=== PATIENT | female | born 1940 | race Caucasian/White ===

== ENCOUNTER → 2017-02-11 | Outpatient (CLI) | payer BC ==
[~2017-02-11] MED LIST: ASCO500C43 PO; CALC-393 PO; CHOL20007 PO; CLTP PO; GLC/500 PO; LEVO1TAB PO; LEVO25TA PO; MULT-506 PO; TRAV0.00 OPB; ZOLE5INJ INJ
--- NOTE | 2017-02-11 13:45 | DIAGNOSTIC IMAGING REPORT ---
RIGHT ELBOW MIN 3 VIEWS CLINICAL HISTORY: RIGHT ELBOW PAIN Right COMPARISON STUDY: None. FINDINGS: No acute fracture or dislocation within the right elbow. No definite elbow effusion. Severe osteoarthritis within the right elbow demonstrated by large marginal osteophytes and cartilage space narrowing with remodeling of the joint space. Small ossific density adjacent to the lateral epicondyle may be due to an old avulsion injury. IMPRESSION: 1. No acute fracture or dislocation within the right elbow. 2. Severe osteoarthritis. Electronically signed by: Cheng Diaz M.D. 02/11/2017 1:43 PM Dictated Date/Time: 02/11/2017 1:39 PM
--- NOTE | 2017-02-11 15:05 | DIAGNOSTIC IMAGING REPORT ---
LUMBAR SPINE MIN 4 VIEWS CLINICAL HISTORY: Low back pain. COMPARISON: Lumbar spine MRI March 06, 2010. FINDINGS: There is 1.1 cm of anterolisthesis of L5 on S1 due to suspected bilateral L5 pars defects. Anterolisthesis has mildly increased since exam of March 06, 2010. There is marked disc space narrowing at this level with osteophytosis and vacuum disc phenomenon. There is moderate disc space narrowing with osteophytosis at L4-L5. There is no acute fracture. Slight concavity of the superior endplate of L2 is unchanged. IMPRESSION: 1. Grade II anterolisthesis of L5 on S1 due to suspected bilateral L5 pars defects. Anterolisthesis has mildly increased since exam of March 06, 2010. 2. Marked disc space narrowing with osteophytosis and vacuum disc phenomenon at L5-S1. Moderate degenerative disc disease at L4-L5. 3. No acute lumbar spine fracture. Electronically signed by: Robert Amaral M.D. 02/11/2017 3:03 PM Dictated Date/Time: 02/11/2017 3:00 PM
== END | disposition home or self-care (01) ==
LOC: C.RDSM 13:15
PROVIDERS: ATTEND Internal Medicine
DX: M54.5 Low back pain (principal); M25.521 Pain in right elbow

== ENCOUNTER → 2017-03-10 | Outpatient (CLI) | payer BC ==
[2017-03-10 09:59] LABS: CALCIUM 10.1 mg/dl (8.5-10.1)
[2017-03-10 10:01] LABS: ALT/SGPT 30 U/L (12-78); BLOOD UREA NITROGEN 10 mg/dl (7-18); BUN/CREATININE RATIO 14.2 (10-20); CARBON DIOXIDE 27 mmol/L (21-32); CHLORIDE 101 mmol/L (98-107); CHOLESTEROL 230 mg/dl (0-200); CREATININE 0.72 mg/dl (0.60-1.20); GLUCOSE 142 mg/dl (70-99); POTASSIUM 4.3 mmol/L (3.5-5.1); SODIUM 137 mmol/L (136-145); TRIGLYCERIDES 246 mg/dl (0-150); VERY LOW DENSITY LIPOPROT CALC 49 mg/dl
[2017-03-10 10:08] LABS: ESTIMATED AVERAGE GLUCOSE 151 mg/dl; HA1C FLAG Normal (Normal)
[2017-03-10 10:11] LABS: ALKALINE PHOSPHATASE 54 U/L (45-117); AST/SGOT 20 U/L (15-37); CHOLESTEROL/HDL RATIO 3.9; HDL CHOLESTEROL 59 mg/dl; LDL CHOLESTEROL CALCULATED 122 mg/dl
[2017-03-10 10:25] LABS: RATIO 17.5 mcg/mg (0-30.0)
--- NOTE | 2017-03-14 11:37 | CODING QUERY MEDICAL NECESSITY ---
SUPPORTING DIAGNOSIS NEEDED Dr. Kearney, A supporting diagnosis is required for the test/procedure performed on this patient in order for us to be reimbursed by the patient's insurance. Please provide a supporting diagnosis for the following test/procedure listed below next to the test name along with your signature. *If there is no additional diagnosis for this patient that would support the following test/procedure please document that below next to the test/procedure. Test(s)/Procedure(s) that require a supporting diagnosis: * ([id number]) B12 VITAMIN LEVEL DIAGNOSIS: DATE OF SERVICE: 03/10/17 Provider Signature: Date: Thank you [facility] Information Management Once completed, please kindly fax back to [phone] For questions please call [phone]
== END | disposition home or self-care (01) ==
LOC: C.LAB1850 08:03
PROVIDERS: ATTEND Internal Medicine
DX: E11.9 Type 2 diabetes mellitus without complications (principal); M81.0 Age-related osteoporosis without current pathological fracture; E78.5 Hyperlipidemia, unspecified; R74.8 Abnormal levels of other serum enzymes

== ENCOUNTER → 2017-04-17 | Outpatient (CLI) | payer BC ==
[~2017-04-17] MED LIST changes: -ASCO500C43 PO; -CALC-393 PO; -CHOL20007 PO; -GLC/500 PO; -LEVO25TA PO; -ZOLE5INJ INJ
--- NOTE | 2017-04-18 12:44 | MAMMOGRAPHY REPORT ---
BILATERAL DIGITAL SCREENING MAMMOGRAM WITH CAD: 04/17/2017 CLINICAL HISTORY: Routine screening. Patient has no complaints. TECHNIQUE: Current study was also evaluated with a Computer Aided Detection (CAD) system. Bilateral CC and MLO views were obtained. COMPARISON: Comparison is made to exams dated: 05/14/2011 mammogram, 05/07/2010 mammogram - [facility], and 05/06/2008. BREAST COMPOSITION: There are scattered areas of fibroglandular density in both breasts. FINDINGS: No suspicious masses, calcifications, or areas of architectural distortion are noted in ei ther breast. There has been no significant interval change compared to prior exams. IMPRESSION: ACR BI-RADS CATEGORY 1: NEGATIVE There is no mammographic evidence of malignancy. A 1 year screening mammogram is recommended. The pa tient will receive written notification of the results. Approximately 10% of breast cancers are not detected with mammography. A negative mammographic report should not delay biopsy if a clinically suggestive mass is present. Bonny Eng M.D. ah/:04/17/2017 16:03:56 [employer]: Janene OLIVIER(Ronda)(Rito)(BD), [facility] letter sent: Normal 1/2 BI-RADS Code: ACR BI-RADS Category 1: Negative
== END | disposition home or self-care (01) ==
LOC: C.MAMM 15:43
PROVIDERS: ATTEND Obstetrics & Gynecology
DX: Z12.31 Encounter for screening mammogram for malignant neoplasm of breast (principal)

== ENCOUNTER 2017-06-04 15:48 | Emergency (ER) | payer BC ==
[~2017-06-04] VITALS: Ht 137.2 cm; Wt 48.4 kg
[2017-06-04 15:52] VITALS: Ht 137.2 cm; Wt 48.4 kg
[2017-06-04] MEDS ORDERED: XYLOCAINE 1%/SOD BICARB 20 ML VIAL INFIL ONE (16:00)
[2017-06-04] MEDS ORDERED: ASCO500C43 PO (16:59)
[2017-06-04] MEDS ORDERED: LEVO25TA PO (16:59)
[2017-06-04] MEDS ORDERED: ZOLE5INJ INJ (16:59)
[2017-06-04] MEDS ORDERED: CALC-393 PO (16:59)
[2017-06-04] MEDS ORDERED: CHOL20007 PO (16:59)
[2017-06-04] MEDS ORDERED: GLC/500 PO (16:59)
--- NOTE | 2017-06-04 17:17 | DIAGNOSTIC IMAGING REPORT ---
CT HEAD WITHOUT CONTRAST (CT) CLINICAL HISTORY: Head pain status post head trauma COMPARISON STUDY: 03/09/2011 TECHNIQUE: Axial CT of the brain is performed from the vertex to the skull base. IV contrast was not administered for this examination. A dose lowering technique was utilized adhering to the principles of ALARA. CT DOSE: 690.05 mGycm FINDINGS: No intra or extra-axial mass lesions are visualized. There is no CT evidence of acute cortical infarction. There is no evidence of midline shift. There is no acute hemorrhage. No calvarial fractures are visualized. There are patchy white matter hypodensities likely on a small vessel basis. There is no evidence of pathologic ventricular dilatation. There is no evidence of acute sinusitis IMPRESSION: No acute intracranial findings Electronically signed by: Ajay Lofton M.D. 06/04/2017 5:15 PM Dictated Date/Time: 06/04/2017 5:14 PM
--- NOTE | 2017-06-04 17:19 | DIAGNOSTIC IMAGING REPORT ---
CT OF THE CERVICAL SPINE CLINICAL HISTORY: Neck pain status post trauma COMPARISON STUDY: June 2008 CT DOSE: 380.93 mGycm TECHNIQUE: CT scan of the cervical spine was performed from the skull base to the thoracic inlet. Images are reviewed in the axial, sagittal, and coronal planes. IV contrast was not administered for this examination. A dose lowering technique was utilized adhering to the principles of ALARA. FINDINGS: The visualized portions of the lung apices reveal no evidence of pneumothorax. The prevertebral soft tissues are normal. No fractures or subluxations are visualized. There are advanced multilevel degenerative changes with multilevel disc space narrowing and endplate erosive change. IMPRESSION: No evidence of acute fracture or traumatic subluxation. Electronically signed by: Ajay Lofton M.D. 06/04/2017 5:17 PM Dictated Date/Time: 06/04/2017 5:15 PM
--- NOTE | 2017-06-04 17:23 | DIAGNOSTIC IMAGING REPORT ---
LEFT WRIST W/NAVICULAR 5 VIEWS CLINICAL HISTORY: Left wrist pain COMPARISON: None. DISCUSSION: No acute fractures or dislocations are visualized. There are advanced arthritic changes the level the first carpal metacarpal joint. There is joint space narrowing at the level the second and third metacarpal phalangeal joints. Several small bony erosions are visualized. IMPRESSION: 1. No acute fractures 2. Arthritic changes which are severe at the level the first carpal metacarpal joint. Electronically signed by: Ajay Lofton M.D. 06/04/2017 5:22 PM Dictated Date/Time: 06/04/2017 5:21 PM
--- NOTE | 2017-06-04 17:33 | DIAGNOSTIC IMAGING REPORT ---
CT FACIAL BONES-MXILLOFAC WITHOUT CT DOSE: 495.61 mGycm CLINICAL HISTORY: Facial pain status post trauma COMPARISON STUDY: March 09, 2011 TECHNIQUE: Helical images were acquired in the transverse plane. The study was reviewed and analyzed on the independent 3-D workstation. A dose lowering technique was utilized adhering to the principles of ALARA. The pterygoid plates appear intact. The zygomatic arches appear intact. The globes appear intact. There is no evidence of orbital emphysema. The orbital dia and floor appear intact. The mandibular condyles appear intact. There is a left maxillary dental apical abscess. IMPRESSION: No facial fractures identified. Electronically signed by: Ajya Lofton M.D. 06/04/2017 5:32 PM Dictated Date/Time: 06/04/2017 5:30 PM
--- NOTE | 2017-06-04 18:12 | EMERGENCY ROOM VISIT NOTE ---
History First contact with patient: 15:54 Chief Complaint: FALL Stated Complaint: FELL DOWN ON FACE AND BLEEDING History of Present Illness The patient is a 77 year old female who presents to the Emergency Room with complaints of injuries after she tripped and fell, striking her face on the ground. The patient reports lacerations on both the upper and lower lip. She also reports upper neck pain and mild headache. She denies any nausea, photosensitivity, unusual drowsiness or tinnitus. The patient also complains of left wrist pain from her fall. The patient is [id number]. The patient is uncertain of her last tetanus immunization. She rates her discomfort a 4 out of 10. Review of Systems HEENT: Denies dizziness, visual problems, hearing loss, tinnitus. Denies difficulty swallowing or oral lesions. PULMONARY: Denies cough, shortness of breath, sputum production or hemoptysis. CARDIOVASCULAR: Denies chest pain, palpitations, dyspnea on exertion, orthopnea or peripheral edema. GASTROINTESTINAL: Denies diarrhea, constipation, nausea, vomiting, or abdominal pain. GENITOURINARY: Denies dysuria, frequency, urgency or nocturia. NEUROLOGIC: Denies history of epilepsy, CVA, TIA or chronic headaches. MUSCULOSKELETAL: Denies history of joint tenderness/swelling. SKIN: Denies rashes or lesions. PSYCHIATRIC: Denies history of depression or mental illness. ENDOCRINE: History of diabetes and hypothyroidism. Past Medical/Surgical History Medical Problems: (1) Age-Related Osteoporosis W/O Current Pathological Fracture (2) Diab Izabel Wo Compl, Type Ii Or Unspec Type, Not Uncntrld (3) Glaucoma Nos (4) Hemorrhoids Nos (5) Low Back Pain (6) Nasal Bone Fx-Closed Family History FH: diabetes mellitus FH: heart disease Social History Smoking Status: Never Smoker Alcohol Use: none Marital Status: Occupation Status: retired Current/Historical Medications Scheduled Ascorbic Acid (Vitamin C 500 mg), 500 MG PO DAILY Calcium Carbonate (Calcium), 600 MG PO 4XWK Cholecalciferol (Vitamin D3), 1 TAB PO DAILY Levothyroxine Sodium (Synthroid), 25 MCG PO DAILY Metformin Hcl (Glucophage), 500 MG PO DAILY Multivitamin (Multivitamin), 1 TAB PO DAILY Travoprost (Travatan Z), 1 DROPS OPB HS Zoledronic Acid (Reclast), 1 DOSE INJ UD Physical Exam Vital Signs Date Time Temp Pulse Resp B/P (MAP) Pulse Ox O2 Delivery O2 Flow Rate FiO2 06/04/17 18:15 36.5 91 20 179/106 98 06/04/17 18:15 91 20 179/106 98 Room Air 06/04/17 15:52 36.5 98 20 188/104 98 Room Air Physical Exam CONSTITUTIONAL: Healthy and well nourished. Alert and oriented X 3 with positive affect. GCS 15. Patient does not appear in any acute distress. HEENT: Examination shows 1 cm lacerations of the wet mucosa of both the upper and lower lips. Pupils equal, round and reactive. No other facial bone tenderness to palpation. Doppler hemorrhage, hemotympanum, epistaxis, raccoon's eyes or Agustin sign. NECK: Patient has mild tenderness to palpation of the upper central cervical spine and cervical musculature. She is, however, exhibiting active range of motion without obvious discomfort. RESPIRATORY: Clear to auscultation bilaterally with no wheezing, crackles, rhonchi or stridor. CARDIOVASCULAR: Regular rate and rhythm with no murmurs, rubs or gallops. MUSCULOSKELETAL: Examination shows mild edema of the left wrist. She is tender over the distal radius region. Negative anatomic snuffbox tenderness. No tenderness to palpation through the metacarpals or phalanges. Capillary refill is less than 2 seconds. INTEGUMENTARY: No rash or other significant dermatologic conditions noted. NEUROLOGIC: No focal neurologic deficits noted. No ataxia with ambulation. Normal finger to nose test. Negative pronator drift. Medical Decision & Procedures ER Provider Diagnostic Interpretation: Noncontrast CT of the facial bones, head and cervical spine does not show any acute fractures, intracranial bleed or cervical spine subluxations. Radiologist reports were reviewed. My interpretation of left wrist x-rays does not show any acute fractures or dislocations. She has severe osteoarthritis of the first CMC joint. Radiologist report was also reviewed. Procedure Upper and lower lip laceration repairs were performed under local anesthesia after receiving verbal consent from the patient. Using buffered 1% lidocaine without epinephrine, good local anesthesia was administered. The wounds were then approximated using 5-0 Vicryl inverted simple interrupted sutures 2 of the upper lip, and 3 of the lower lip. The patient tolerated the procedure well. ED Course Patient history and physical exam were performed. Nurse's notes were reviewed. Vital signs were reviewed, showing a blood pressure 188/104. The patient does not appear in any acute distress. I also had our outsole caser reviewed the patient's immunization status through [employer]. Her last Tdap was in May 2012. Noncontrast CT of the facial bones, head and cervical spine were normal. X-rays of the left wrist were also normal. Laceration repair was performed under local anesthesia. The patient was provided additional verbal and written wound care instructions. Intermittent application of ice to the lips and wrist as needed for swelling and pain. Ibuprofen or Tylenol if needed for additional pain relief. The patient was also instructed to follow-up with her orthopedist, Dr. Lopez, if she has any persistent wrist pain. She was instructed to perform gentle range of motion exercises to prevent stiffness The patient was also advised of her elevated blood pressure, and instructed to follow-up with her PCP for recheck. The patient was also seen and examined by Dr. Garrido, ED attending physician, who agrees with workup and plan of care. Medical Decision Medication Reconcilliation Current Medication List: was personally reviewed by me Blood Pressure Screening Patient's blood pressure: Elevated blood pressure Blood pressure disposition: Referred to PCP Impression Primary Impression: Upper lip mucosal laceration Additional Impressions: Lower lip mucosal laceration Left wrist injury Fall from slip, trip, or stumble Elevated blood pressure reading Departure Information Referrals RV. Berry MD (PCP) Patient Instructions My [facility] Problem Qualifiers Additional Impressions: Left wrist injury Encounter type: initial encounter Qualified Codes: S69.92XA - Unspecified injury of left wrist, hand and finger(s), initial encounter Fall from slip, trip, or stumble Encounter type: initial encounter Qualified Codes: W01.0XXA - Fall on same level from slipping, tripping and stumbling without subsequent striking against object, initial encounter
--- NOTE | 2017-06-04 18:12 | EMERGENCY ROOM VISIT NOTE ---
ED Visit Note First contact with patient: 15:54 I have personally seen and evaluated the patient with the physician state tested nursing assistant. I agree with the diagnostic/management decisions and have personally been involved in these decisions and agree with the diagnosis.
[2017-06-04 18:15] VITALS: BP 179/106; PULSE 91; TEMP 36.5; O2SAT 98
== END 2017-06-04 18:18 | disposition home or self-care (01) ==
LOC: C.EDB 15:49 → C.EDD 18:18
DX: S01.511A Laceration without foreign body of lip, initial encounter (principal); S69.92XA Unspecified injury of left wrist, hand and finger(s), initial encounter; W01.0XXA Fall on same level from slipping, tripping and stumbling without subsequent striking against object, initial encounter; R03.0 Elevated blood-pressure reading, without diagnosis of hypertension; M18.12 Unilateral primary osteoarthritis of first carpometacarpal joint, left hand; E11.9 Type 2 diabetes mellitus without complications; E03.9 Hypothyroidism, unspecified; M81.0 Age-related osteoporosis without current pathological fracture; H40.9 Unspecified glaucoma; K64.9 Unspecified hemorrhoids; Z79.84 Long term (current) use of oral hypoglycemic drugs; Z83.3 Family history of diabetes mellitus

== ENCOUNTER → 2017-06-11 | Outpatient (CLI) | payer BC ==
[~2017-06-11] MED LIST changes: +ASCO500C43 PO; +CALC-393 PO; +CHOL20007 PO; -CLTP PO; +GLC/500 PO; -LEVO1TAB PO; +LEVO25TA PO; +ZOLE5INJ INJ
== END | disposition home or self-care (01) ==
LOC: C.PAPS 08:37
PROVIDERS: ATTEND Obstetrics & Gynecology
DX: Z12.4 Encounter for screening for malignant neoplasm of cervix (principal)

== ENCOUNTER → 2017-06-12 | Outpatient (CLI) | payer BC ==
--- NOTE | 2017-06-12 13:43 | DIAGNOSTIC IMAGING REPORT ---
BILATERAL KNEE RADIOGRAPHS CLINICAL HISTORY: Bilateral knee pain. COMPARISON: Knee radiographs July 30, 2016. FINDINGS: Right knee: There is mild medial translation of the femur with respect to the tibia. There is marked medial and lateral compartment joint space narrowing as well as moderate narrowing within the patellofemoral compartment with extensive osteophytosis. There is no fracture or suspicious lesion. Left knee: There is mild medial translation of the femur with respect to the tibia. There is no fracture. There is marked medial compartment joint space narrowing. There is moderate lateral compartment joint space narrowing as well as patellofemoral compartment joint space narrowing with osteophytosis. IMPRESSION: Right knee: 1. Severe tricompartmental osteoarthritis of the right knee. 2. No acute fracture. Left knee: 1. Severe osteoarthritis of the left knee, most pronounced within the medial and patellofemoral compartments. 2. No acute fracture. Electronically signed by: Robert Amaral M.D. 06/12/2017 1:41 PM Dictated Date/Time: 06/12/2017 1:34 PM
== END | disposition home or self-care (01) ==
LOC: C.RDSM 10:46
PROVIDERS: ATTEND Internal Medicine
DX: M25.561 Pain in right knee (principal)

== ENCOUNTER → 2017-09-04 | Outpatient (CLI) | payer BC ==
[2017-09-04 09:51] LABS: CALCIUM 9.7 mg/dl (8.5-10.1); CREATININE 0.69 mg/dl (0.60-1.20)
== END | disposition home or self-care (01) ==
LOC: C.LAB1850 08:09
PROVIDERS: ATTEND Internal Medicine
DX: M81.0 Age-related osteoporosis without current pathological fracture (principal)

== ENCOUNTER → 2018-01-02 | Outpatient (CLI) | payer BC ==
[2018-01-02 13:18] LABS: HEMOGLOBIN A1C 7.2 % (4.5-5.6)
[2018-01-02 13:36] LABS: ALBUMIN 3.9 gm/dl (3.4-5.0); ALT/SGPT 28 U/L (12-78); BLOOD UREA NITROGEN 10 mg/dl (7-18); CALCIUM 8.7 mg/dl (8.5-10.1); CARBON DIOXIDE 28 mmol/L (21-32); CHOLESTEROL 213 mg/dl (0-200); CREATININE 0.62 mg/dl (0.60-1.20); GLUCOSE 139 mg/dl (70-99); POTASSIUM 4.1 mmol/L (3.5-5.1); SODIUM 135 mmol/L (136-145)
[2018-01-02 13:46] LABS: ALKALINE PHOSPHATASE 53 U/L (45-117); AST/SGOT 19 U/L (15-37); LDL CHOLESTEROL CALCULATED 122 mg/dl; TOTAL PROTEIN 7.7 gm/dl (6.4-8.2)
== END | disposition home or self-care (01) ==
LOC: C.LAB1850 10:24
PROVIDERS: ATTEND Internal Medicine
DX: E11.9 Type 2 diabetes mellitus without complications (principal); M81.0 Age-related osteoporosis without current pathological fracture

== ENCOUNTER → 2018-05-06 | Outpatient (CLI) | payer BC ==
[2018-05-06 09:50] LABS: HEMOGLOBIN A1C 7.4 % (4.5-5.6)
[2018-05-06 09:59] LABS: ALBUMIN 3.9 gm/dl (3.4-5.0); ALKALINE PHOSPHATASE 64 U/L (45-117); ALT/SGPT 29 U/L (12-78); AST/SGOT 20 U/L (15-37); BLOOD UREA NITROGEN 9 mg/dl (7-18); CALCIUM 8.8 mg/dl (8.5-10.1); CARBON DIOXIDE 25 mmol/L (21-32); CREATININE 0.72 mg/dl (0.60-1.20); GLUCOSE 163 mg/dl (70-99); POTASSIUM 4.5 mmol/L (3.5-5.1); SODIUM 132 mmol/L (136-145); TOTAL PROTEIN 7.6 gm/dl (6.4-8.2)
[2018-05-06 10:17] LABS: CREATININE RANDOM URINE 81.1 mg/dl
== END | disposition home or self-care (01) ==
LOC: C.LAB1850 07:49
PROVIDERS: ATTEND Internal Medicine
DX: E11.9 Type 2 diabetes mellitus without complications (principal)

== ENCOUNTER 2020-08-07 21:31 | Observation (INO) ==
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
[2020-08-07 22:18] LABS: Basophils # (auto) 0.01 K/uL (0-0.2); Basophils % (auto) 0.1 %; Eosinophils # (auto) 0.01 K/uL (0-0.5); Eosinophils % (auto) 0.1 %; Hemoglobin 12.8 g/dL (12.0-16.0); Immature Granulocytes # (auto) 0.09 K/uL (0.00-0.02); Immature Granulocytes % (auto) 0.6 %; Lymphocytes # (auto) 1.29 K/uL (1.2-3.4); Lymphocytes % (auto) 8.7 %; Mean Corpuscular Hgb Conc 35.6 g/dL (32-36); Mean Corpuscular Volume 78.8 fL (80-100); Monocytes # (auto) 1.03 K/uL (0.11-0.59); Neutrophils # (auto) 12.32 K/uL (1.4-6.5); Neutrophils % (auto) 83.5 %; Platelet Count 496 K/uL (130-400); Red Blood Count 4.57 M/uL (4.2-5.4); White Blood Count 14.75 K/uL (4.8-10.8)
[2020-08-07 22:21] LABS: Alanine Aminotransferase 22 U/L (12-78); Albumin Level 3.5 gm/dl (3.4-5.0); Aspartate Aminotransferase 17 U/L (15-37); BUN Creatinine Ratio 14.8 (10-20); Blood Urea Nitrogen 10 mg/dl (7-18); Calcium 9.8 mg/dl (8.5-10.1); Carbon Dioxide 26 mmol/L (21-32); Chloride 89 mmol/L (98-107); Creatinine Clr Calc Pharmacy 41.4 ml/min; Est GFR (Non-African American) 81.1; Glucose 174 mg/dl (70-99); Magnesium 2.1 mg/dl (1.8-2.4); Potassium 3.7 mmol/L (3.5-5.1); Sodium 124 mmol/L (136-145)
[2020-08-07 22:25] LABS: Alkaline Phosphatase 64 U/L (45-117); Bilirubin,Total 0.5 mg/dl (0.2-1); Globulin 3.6 gm/dl (2.5-4.0); Total Protein 7.1 gm/dl (6.4-8.2); Troponin I < 0.015 ng/ml (0-0.045)
[2020-08-07 23:14] LABS: Appearance Urine Clear (Clear); Bilirubin Urine Negative (Negative); Blood Urine Trace (Negative); Color Urine Yellow; Glucose Urine UA Negative (Negative); Ketones Urine Negative (Negative); Leukocyte Esterase Urine Trace (Negative); Nitrite Urine Negative (Negative); Protein Urine Negative (Negative); Specific Gravity Urine 1.009 (1.000-1.030); Urobilinogen Urine Negative (Negative); pH Urine 7.5 (4.5-7.5)
[2020-08-07 23:31] LABS: Epithelial Cell Urine 20-30 /lpf (0-5)
[2020-08-07 23:34] LABS: Amorphous Sediment Urine Present (None Prsent); RBC Urine 0-4 /hpf (0-4)
[2020-08-07 23:40] LABS: Bacteria Urine 1+ (Negative)
[2020-08-08] MEDS ORDERED: SODIUM CHLORIDE 0.9% 1000ML 1,000 ML IV SCH (00:02)
[2020-08-08] MEDS ORDERED: NITROGLYCERIN SL 0.4 MG/TAB TAB SL PRN (00:24)
[2020-08-08] MEDS ORDERED: ONDANSETRON INJ 2 MG/ML 2 ML VIAL IV PRN (00:24)
[2020-08-08] MEDS: cefTRIAXone SODIUM 1,000 MG in DEXTROSE 5% 50 ML IV SCH (01:30)
[2020-08-08] MEDS ORDERED: GLUCOSE 10 TABS/TUBE PO PRN (02:15)
[2020-08-08] MEDS ORDERED: GLUCOSE 40% GEL 15 GM TUBE PO PRN (02:15)
[2020-08-08] MEDS ORDERED: CARBOHYDRATES FOR HYPOGLYCEMIA PO PRN (02:15)
[2020-08-08] MEDS ORDERED: GLUCAGON FOR INJ 1 MG VIAL IM PRN (02:15)
[2020-08-08] MEDS ORDERED: DEXTROSE 50% 50 ML SYRINGE IV PRN (02:15)
--- NOTE | 2020-08-08 02:49 | History and Physical Report ---
DATE OF ADMISSION: 08/07/2020 CHIEF COMPLAINT: Weakness and hyponatremia. HISTORY OF PRESENT ILLNESS: This is an 80-year-old female with past medical history significant for diabetes, hypothyroidism, senile osteoporosis, senile osteoarthritis, degenerative disc disease of lumbosacral and cervical, glaucoma, the patient lives with her , was brought in because of ongoing weakness and outpatient labs showed hyponatremia. The patient was recently started seen by Rita on 07/27/2020 and labs showed sodium of 130 and she also has a history of osteoporosis and back pain, neck pain, shoulder aches. Imaging studies moderate degenerative disc disease at L3-L4, L4-L5 advanced disease at L5-S1on x-rays, she has also cervical MRI done in [facility] on 07/24/2020 which shows multilevel discogenic degeneration and facet arthrosis resulting in mild central canal stenosis at C4-C5, C5-C6 with multilevel foraminal narrowing. No acute fracture or subluxation, or bone marrow edema seen.She followed with rheumatology on 08/02/2020 . She was initially started on gabapentin, tizanidine, Cymbalta and prednisone taper, director [place] stopped the gabapentin and continue with Cymbalta.But she was feeling weak and tired and she was falling at home. She has loss of appetite, not eating anything for several days and patient says she did micturate for a couple of days and only she started micturating yesterday and today and she is only ate little bit of food as per daughter and she also took Cymbalta only for a few days and stopped about 4 or 5 days ago and again labs were done outpatient today showed sodium of 123 and she was advised to come to the hospital. Urinalysis showing positive for UTI. As per daughter, she was somewhat disoriented at home yesterday, but she had a steroid shot today to her cervical spine, that went okay, but after coming home, she seemed a little confused and she was brought in here. Currently, she is much more alert and oriented, seems to be back to her baseline. Denies any headache, no earache, no runny nose, no sore throat, no cough, no fever, no chills, no chest pain, no shortness of breath, no nausea, no abdominal pain. Normal bowel movements. She says she did not micturate for couple of days, started micturating now. Denies any burning micturition, no swelling in the legs seen, no rash seen. Currently resting comfortably and hemodynamically stable. ALLERGIES: SALICYLATES, GLUTEN, MONOSODIUM GLUTAMATE, PENICILLIN, SULFA ANTIBIOTICS, ALENDRONATE. PAST MEDICAL HISTORY: As mentioned above. PAST SURGICAL HISTORY: Ligation of oviducts. MEDICATIONS: Currently the patient is on ascorbic acid 500 mg p.o. daily, vitamin D 2000 units p.o. daily, vitamin B12 1000 mcg p.o. daily, diclofenac sodium 1 topical q.i.d., levothyroxine 25 mcg p.o. daily, metformin 500 mg p.o. daily, multivitamin 1 tablet daily, latanoprost 0.004% eyedrops q.p.m., vitamin B complex 1 tablet daily. FAMILY HISTORY: Significant for father has arthritis, heart disorder. Mother has osteoporosis. SOCIAL HISTORY: , lives with her , no smoking, no alcohol, no drug use. REVIEW OF SYMPTOMS: As per HPI. Rest of review of symptoms negative. PHYSICAL EXAMINATION: GENERAL: The patient is of moderate build, not in acute distress. VITAL SIGNS: Temperature 36.5, pulse 70, respiratory rate 20, blood pressure 161/87 and oxygen 96% on room air. HEENT: Pupils equal, round, reactive to light. No pallor, no icterus. Oral mucosa moist. NECK: No JVD, no neck masses seen. CARDIOVASCULAR: S1, S2 heard, regular rate and rhythm, no murmur, no gallop. RESPIRATORY SYSTEM: Normal AP diameter. No accessory muscle use. No wheezing, no crackles. ABDOMEN: Soft, bowel sounds present, nontender. No distention. CENTRAL NERVOUS SYSTEM: Alert and oriented. Cranial nerves II-XII grossly intact. Strength 5/5 in all extremities. Coordination of movements normal. No pronator drift. EXTREMITIES: No edema, no erythema. LABORATORY DATA: WBC 14, hemoglobin 12.8, hematocrit 36, platelets 496. Sodium 124, potassium 3.7, chloride 89, bicarbonate 26, BUN 10, creatinine 0.6, serum glucose 174, calcium 9.8, magnesium 2.1, total bilirubin 0.5, AST 17, ALT 22, alkaline phosphatase 64. Troponin I less than 0.015. Urinalysis positive for leukocyte esterase and +1 bacteria and epithelial cells. Urine random sodium 17. Chest x-ray, no acute findings. EKG: Normal sinus rhythm, rate of 87, no significant change was found. ASSESSMENT AND PLAN: This is an 80-year-old female who presents with ongoing several days of weakness and some question of some disorientation and fall at home and found to have hyponatremia as outpatient. 1. Hyponatremia. The patient says she was started on Cymbalta recently but only took it for few days only and stopped about 4 or 5 days ago .She is also having decreased appetite and not eating or drinking for several days. Could be dehydration, could be SIADH, from Cymbalta use. We will check serum osmolality, urine osmolality. Gentle fluids for now. Follow up BMP in a.m. and then BMP q. 6 hours, to avoid rapid correction. Sodium was 130 on 07/27/2020. We will consult neurology in a.m. for further recommendations. 2. Urinary tract infection, could be contributing to her weakness and poor appetite. We will start her on Rocephin. We will follow the cultures and getting gentle fluids. . 3. Diabetes. Hold metformin, placed on insulin sliding scale. Follow HbA1c levels, follow the blood sugars. 4. Hypothyroidism. Continue Synthroid. 5. Osteoporosis and degenerative disc disease, following with director china, has steroid shot to her neck and following with the pain clinic. 6. Deep venous thrombosis prophylaxis, sequential compression devices for now. 7. Disposition: Closely monitor in the tele floor. Level 1 full code. Expect discharge home and follow with the family doctor. JOSSE
[2020-08-08] MEDS: LEVOTHYROXINE SODIUM 25 MCG TABLET PO SCH (05:32)
[2020-08-08 05:57] LABS: Eosinophils # (auto) 0.01 K/uL (0-0.5); Eosinophils % (auto) 0.1 %; Hematocrit (blood only) 33.3 % (37-47); Hemoglobin 11.6 g/dL (12.0-16.0); Immature Granulocytes # (auto) 0.06 K/uL (0.00-0.02); Immature Granulocytes % (auto) 0.4 %; Lymphocytes # (auto) 1.22 K/uL (1.2-3.4); Lymphocytes % (auto) 8.4 %; Mean Corpuscular Hemoglobin 27.7 pg (25-34); Mean Corpuscular Hgb Conc 34.8 g/dL (32-36); Mean Corpuscular Volume 79.5 fL (80-100); Mean Platelet Volume 8.5 fL (7.4-10.4); Monocytes # (auto) 1.16 K/uL (0.11-0.59); Monocytes % (auto) 7.9 %; Neutrophils # (auto) 12.16 K/uL (1.4-6.5); Neutrophils % (auto) 83.2 %; Platelet Count 454 K/uL (130-400); RDW Coefficient of Variation 13.4 % (11.5-14.5); RDW Standard Deviation 38.7 fL (36.4-46.3); Red Blood Count 4.19 M/uL (4.2-5.4); White Blood Count 14.61 K/uL (4.8-10.8)
[2020-08-08 06:23] LABS: BUN Creatinine Ratio 14.7 (10-20); Calcium 8.8 mg/dl (8.5-10.1); Creatinine Clr Calc Pharmacy 42.1 ml/min; Est GFR (African American) 98.9; Est GFR (Non-African American) 85.4; Potassium 3.9 mmol/L (3.5-5.1)
[2020-08-08] MEDS ORDERED: SODIUM CHLORIDE 0.9% 500 ML IV SCH (06:45)
--- NOTE | 2020-08-08 07:14 | XRay Report ---
XR chest 1V portable HISTORY: Weakness. COMPARISON: Chest 01/05/2019. FINDINGS: No focal lung consolidations to suggest pneumonia. No evidence for pulmonary edema. The car diac silhouette is normal in size. No pleural effusions. No pneumothorax. Degenerative changes noted within the shoulders. A 4 mm nodular density within the left midlung zone likely represents summation of the overlying ribs, scapula, and pulmonary vessels. IMPRESSION: No acute process. ACT 112: Negative or not required by law. Electronically signed by: Cheng Diaz M.D. 08/08/2020 7:13 AM
[2020-08-08 07:43] LABS: Estimated Average Glucose 148 mg/dl; Hemoglobin A1C 6.8 % (4.5-5.6)
[2020-08-08] MEDS: INSULIN ASPART 100 UNITS/ML 3 ML PEN SC SCH ×4 (08:09→20:53)
[2020-08-08] MEDS: CHOLECALCIFEROL 1,000 UNITS 25 MCG TAB PO SCH (08:12)
[2020-08-08] MEDS: ASCORBIC ACID 500 MG TAB PO SCH (08:12)
[2020-08-08] MEDS: VITAMIN B COMPLEX TAB PO SCH (08:12)
[2020-08-08] MEDS: MULTIVITAMIN TAB PO SCH (08:12)
[2020-08-08] MEDS: CYANOCOBALAMIN 500 MCG TABLET (VITAMIN B-12) PO SCH (08:12)
[2020-08-08] MEDS ORDERED: DICLOFENAC SOD 1% GEL 100 GM TUBE EXT SCH (09:00)
[2020-08-08] MEDS ORDERED: FAMOTIDINE 20 MG in SYRINGE 3 ML IV SCH (09:00)
--- NOTE | 2020-08-08 09:23 | Hospitalist Progress Note ---
Date of Service August 08, 2020 Assessment & Plan (1) Generalized weakness: likely from Hyponatremia with possible urinary tract infection -questionable whether there is a urinary tract infection. Only 1 + bacteria in the urine. follow the urine cultures and continue empiric ceftriaxone daily -Leukocytosis may be from outpatient steroid injection when at pain clinic, trend the WBC (2) Acute hyponatremia: Hypotonic Hyponatremia -as per admission note: "This is an 80-year-old female with past medical history significant for diabetes, hypothyroidism, senile osteoporosis, senile osteoarthritis, degenerative disc disease of lumbosacral and cervical, glaucoma, the patient lives with her , was brought in because of ongoing weakness and outpatient labs showed hyponatremia. The patient was recently started seen by Rita on 07/27/2020 and labs showed sodium of 130 and she also has a history of osteoporosis and back pain, neck pain, shoulder aches. Imaging studies moderate degenerative disc disease at L3-L4, L4-L5 advanced disease at L5-S1on x-rays, she has also cervical MRI done in [facility] [place] on 07/24/2020 which shows multilevel discogenic degeneration and facet arthrosis resulting in mild central canal stenosis at C4-C5, C5-C6 with multilevel foraminal narrowing. No acute fracture or subluxation, or bone marrow edema seen.She followed with rheumatology on 08/02/2020 . She was initially started on gabapentin, tizanidine, Cymbalta and prednisone taper, tipple boss stopped the gabapentin and continue with Cymbalta.But she was feeling weak and tired and she was falling at home. She has loss of appetite, not eating anything for several days and patient says she did micturate for a couple of days and only she started micturating yesterday and today and she is only ate little bit of food as per daughter and she also took Cymbalta only for a few days and stopped about 4 or 5 days ago and again labs were done outpatient today showed sodium of 123 and she was advised to come to the hospital. Urinalysis showing positive for UTI. As per daughter, she was somewhat disoriented at home yesterday, but she had a steroid shot today to her cervical spine, that went okay, but after coming home, she seemed a little confused and she was brought in here." -On the ED presentation on 08/07/2020, serum sodium of 124, low serum osmolality of 262, far lower urine osmolality of 180 -08/08/2020 day time exam: Patient seen and examined at bedside. Patient not in acute distress. Patient reports she lives a healthy lifestyle, no toxic habits of tobacco or alcohol, vegan diet with recent 1 week of poor appetite and relative immobilization at home because she has been dealing with cervical neck pain/back pain issues and recently on new pain medications and also pain management injection when outpatient. -low serum sodium may be from poor oral intake versus contributions from new medications or steroids recently. will try to avoid NSAIDs or steroids or Cymbalta -patient has received some initial IV fluids. will repeat serum sodium levels at 1 PM, 7 PM on 08/08/2020, 1 AM on 08/09/2020. follow the labs -nephrology consult assessment requested (3) Type 2 diabetes mellitus: -Hold metformin -on insulin sliding scale -HbA1c 6.8 -continue diabetic, vegan diet -supervising librarian consult (4) Hypothyroid: Hypothyroidism -continue home dose levothyroxine 25 mcg daily -check TSH Osteoporosis and degenerative disc disease -she follows with outpatient tipple boss, she had steroid shot to her neck area from recent the pain clinic -continue Vitamin D -PT/OT evaluations Deep venous thrombosis prophylaxis: Lovenox 40 mg subcutaneous daily Social history: she reports her son is a professor from [place] and plans to be visiting her in the hospital Admission and Anticipated Discharge Date Admission Date: August 07, 2020 Subjective Patient seen and examined at bedside. Patient not in acute distress. Patient reports she lives a healthy lifestyle, no toxic habits of tobacco or alcohol, vegan diet with recent 1 week of poor appetite and relative immobilization at home because she has been dealing with cervical neck pain/back pain issues and recently on new pain medications and also pain management injection when outpatient. Patient denies symptoms of vomiting, changes in bowel movements, dizziness, shortness of breath, chest pain, abdominal pain. Review of Systems Review of Systems: All systems reviewed & are unremarkable except as noted in Subjective Physical Exam Constitutional: WD/WN, vitals as above Eyes: PERRL, conjunctivae normal, anicteric sclerae EOM intact bilaterally ENMT: external ear and nose normal, oropharynx normal Neck: trachea midline, no thyromegaly normal visual inspection Respiratory: normal respiratory effort, lungs clear to auscultation Cardiovascular: Rate/Rhythm: regular rhythm Gastrointestinal (Abdomen): normal bowel sounds, soft, nontender, no hepatosplenomegaly Musculoskeletal: Head/Neck/Chest: normocephalic and head atraumatic no acute tenderness or swelling the neck or back on exam Neurologic: PERRL, EOMI, accommodation nl, no face palsy, no dysarthria moves all extremities Psychiatric: A+Ox3, euthymic affect Results & Data Results & Data ([facility]) Vital Signs (Past 12 Hours) Vital Signs Temp Pulse Pulse Resp BP BP Pulse Ox 08/08/20 07:37 80 08/08/20 07:27 36.7 C 79 18 147/72 H 98 08/08/20 04:00 36.8 C 89 16 143/67 H 100 08/08/20 01:00 92 H 08/08/20 00:11 36.3 C L 94 H 18 151/82 H 98 08/07/20 23:11 70 20 161/87 H 96 08/07/20 22:36 90 14 182/92 H 99 08/07/20 22:00 87 17 163/88 H 97 08/07/20 21:40 36.5 C 98 H 18 141/90 H 98
[2020-08-08] MEDS ORDERED: ENOXAPARIN INJ 40 MG/0.4 ML SYR SQ ONE (09:26)
[2020-08-08] MEDS ORDERED: ACETAMINOPHEN 325 MG TAB PO PRN (09:42)
--- NOTE | 2020-08-08 11:23 | Consultation Report ---
DATE OF CONSULTATION: 08/08/2020 NEPHROLOGY CONSULTATION NOTE REASON FOR CONSULT: Weakness and hyponatremia. HISTORY OF PRESENT ILLNESS: An 80-year-old female with history of diabetes, hypothyroidism, osteoporosis, multiple degenerative joint disease, was brought to the hospital yesterday because of worsening weakness and outpatient labs showing hyponatremia. Serum sodium was 130 as an outpatient, but in the Emergency Department, it was 124. She has been started on normal saline. Urine sodium is low. Urine osmolality is low. As per the daughter, the patient has not been eating anything at all for the last 5-7 days. Her baseline appetite is extremely low, but she was still drinking a lot of liquids. Review of her previous sodium shows history of intermittent mild hyponatremia. She is not on any medication that is likely to cause hyponatremia. PAST MEDICAL AND PAST SURGICAL HISTORY: Type 2 diabetes, hypothyroidism, osteoporosis, osteoarthritis, history of mild hyponatremia, ligation of oviducts. ALLERGIES: Reviewed. MEDICATIONS AT HOME: Include vitamin C, vitamin D, vitamin B12, levothyroxine 25 mcg daily, metformin 500 daily, multivitamin. FAMILY HISTORY: Significant for father with arthritis. No renal disease or dialysis. SOCIAL HISTORY: , lives with her . No smoking, no alcohol, no drugs. REVIEW OF SYSTEMS: As detailed in HPI. The main review of system is, she has been having neck pain and back pain. PHYSICAL EXAMINATION: GENERAL: Elderly female, very small built. She is not in any acute respiratory distress. Awake, alert, oriented x3. VITAL SIGNS: Blood pressure is 147/72, pulse rate 80, temperature 36.7 degrees Celsius, 98% on room air. HEENT: Mucous membranes moist. NECK: Supple. No jugular venous distention. CHEST: Bilateral clear to auscultation. CARDIOVASCULAR: S1 and S2 regular. ABDOMEN: Soft, nontender. EXTREMITIES: No edema. LABORATORY TESTS: Serum sodium 124 on admission, this morning was 126. BUN is low at 9, creatinine 0.59. Urine osmolality is low at 180. Urine sodium 17. Urine dipstick shows specific gravity of 1.009. Chest x-ray shows no acute process. ASSESSMENT AND PLAN: An 80-year-old female who has a history of mild intermittent hyponatremia and now admitted with more severe hyponatremia and weakness. Hyponatremia: Her admission sodium was 124, which is low enough to make the symptoms of weakness worse. She has been having some pain recently, which can make the hyponatremia situation worse. She has not been eating any solid food for many days now and was only drinking liquids. 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 Discussed in detail with the patient as well as her daughter that she really needs to increase her protein intake. She is a vegetarian, but she can still have a lot of plant-based protein. Her liquid intake is disproportionately high for the amount of solid food she is eating. Her blood pressure is somewhat high, so I do not want to give her salt tablet. However, I would be giving her a few doses of urea packet . Check BMP every 8 hours. Serum sodium is already at a point where we really do not have to worry too much about rapid correction. MTDD
[2020-08-08] MEDS: UREA (URE-NA) 15 GM PACK PO SCH ×2 (12:21→20:55)
--- NOTE | 2020-08-08 12:52 | Electrocardiogram Report ---
Test Reason : Blood Pressure : / mmHG Vent. Rate : 087 BPM Atrial Rate : 087 BPM P-R Int : 178 ms QRS Dur : 080 ms QT Int : 358 ms P-R-T Axes : 041 -21 062 degrees QTc Int : 430 ms Poor data quality, interpretation may be adversely affected Normal sinus rhythm Possible Left atrial enlargement Borderline ECG When compared with ECG of 18-DEC-2018 15:31, No significant change was found Confirmed by Jose Ram ([id number]) on 08/08/2020 12:51:58 PM Referred By: REFERRED SELF Confirmed By:Marques Ram
[2020-08-08 13:31] LABS: BUN Creatinine Ratio 23.2 (10-20); Calcium 8.4 mg/dl (8.5-10.1); Creatinine Clr Calc Pharmacy 37.1 ml/min; Est GFR (African American) 94.9; Est GFR (Non-African American) 81.9; Potassium 3.7 mmol/L (3.5-5.1)
[2020-08-08 13:41] LABS: Thyroid Stimulating Hormone 0.51 uIu/ml (0.300-4.500)
[2020-08-08 19:38] LABS: BUN Creatinine Ratio 25.2 (10-20); Calcium 8.1 mg/dl (8.5-10.1); Creatinine Clr Calc Pharmacy 37.7 ml/min; Est GFR (African American) 95.3; Est GFR (Non-African American) 82.3; Potassium 3.8 mmol/L (3.5-5.1)
[2020-08-08] MEDS: FAMOTIDINE 20 MG TAB PO SCH (20:54)
[2020-08-08] MEDS ORDERED: TRAVOPROST Z 0.004% OPH SOLN 2.5 ML BTL OP SCH (21:00)
[2020-08-08] MEDS: SODIUM CHLORIDE 1 GM TABLET PO SCH (21:43)
[2020-08-09] MEDS: cefTRIAXone SODIUM 1,000 MG in DEXTROSE 5% 50 ML IV SCH (00:19)
[2020-08-09 00:59] LABS: BUN Creatinine Ratio 50.3 (10-20); Calcium 8.5 mg/dl (8.5-10.1); Creatinine Clr Calc Pharmacy 45.2 ml/min; Est GFR (African American) 101.2; Est GFR (Non-African American) 87.4; Potassium 3.8 mmol/L (3.5-5.1)
[2020-08-09 01:02] LABS: Albumin Globulin Ratio 0.9 (0.9-2); Bilirubin,Total 0.2 mg/dl (0.2-1); Globulin 3.5 gm/dl (2.5-4.0); Total Protein 6.5 gm/dl (6.4-8.2)
[2020-08-09 01:28] LABS: Basophils # (auto) 0.01 K/uL (0-0.2); Basophils % (auto) 0.1 %; Eosinophils # (auto) 0.01 K/uL (0-0.5); Eosinophils % (auto) 0.1 %; Hematocrit (blood only) 31.6 % (37-47); Hemoglobin 11.2 g/dL (12.0-16.0); Immature Granulocytes # (auto) 0.06 K/uL (0.00-0.02); Immature Granulocytes % (auto) 0.3 %; Lymphocytes # (auto) 1.31 K/uL (1.2-3.4); Lymphocytes % (auto) 7.2 %; Mean Corpuscular Hemoglobin 28.3 pg (25-34); Mean Corpuscular Hgb Conc 35.4 g/dL (32-36); Mean Corpuscular Volume 79.8 fL (80-100); Mean Platelet Volume 8.8 fL (7.4-10.4); Monocytes # (auto) 1.65 K/uL (0.11-0.59); Neutrophils # (auto) 15.23 K/uL (1.4-6.5); Neutrophils % (auto) 83.3 %; Platelet Count 457 K/uL (130-400); RDW Coefficient of Variation 13.2 % (11.5-14.5); RDW Standard Deviation 38.7 fL (36.4-46.3); Red Blood Count 3.96 M/uL (4.2-5.4); White Blood Count 18.27 K/uL (4.8-10.8)
[2020-08-09] MEDS: LEVOTHYROXINE SODIUM 25 MCG TABLET PO SCH (05:40)
[2020-08-09] MEDS: INSULIN ASPART 100 UNITS/ML 3 ML PEN SC SCH ×4 (08:01→20:26)
[2020-08-09] MEDS: UREA (URE-NA) 15 GM PACK PO SCH ×2 (09:33→20:18)
[2020-08-09] MEDS: TRAVOPROST Z 0.004% OPH SOLN 2.5 ML BTL OP SCH ×2 (09:33→20:24)
[2020-08-09] MEDS: CHOLECALCIFEROL 1,000 UNITS 25 MCG TAB PO SCH (09:34)
[2020-08-09] MEDS: MULTIVITAMIN TAB PO SCH (09:34)
[2020-08-09] MEDS: FAMOTIDINE 20 MG TAB PO SCH ×2 (09:34→20:22)
[2020-08-09] MEDS: VITAMIN B COMPLEX TAB PO SCH (09:34)
[2020-08-09] MEDS: ENOXAPARIN INJ 40 MG/0.4 ML SYR SQ SCH (09:34)
[2020-08-09] MEDS: SODIUM CHLORIDE 1 GM TABLET PO SCH (09:34)
[2020-08-09] MEDS: CYANOCOBALAMIN 500 MCG TABLET (VITAMIN B-12) PO SCH (09:34)
[2020-08-09] MEDS: ASCORBIC ACID 500 MG TAB PO SCH (09:35)
--- NOTE | 2020-08-09 10:00 | Progress Notes ---
DATE: 08/09/2020 NEPHROLOGY PROGRESS NOTE SUBJECTIVE: Overnight, sodium continues to fluctuate; this morning was 128. Otherwise, the patient still feels weak. She does admit to drinking a lot and does not eat a whole lot. OBJECTIVE: VITAL SIGNS: Blood pressure 173/77, pulse rate 72, temperature 36.4, 100% on room air. HEENT: Mucous membranes moist. NECK: Supple. No jugular venous distention. CHEST: Bilateral clear to auscultation. CARDIOVASCULAR: S1, S2 regular. ABDOMEN: Soft, nontender. EXTREMITIES: Show no edema. LABORATORY TEST: From this morning shows sodium 128, potassium 3.8, BUN 28, creatinine 0.55, calcium 8.5. Urine sodium 17. Urine osmolality 180. ASSESSMENT AND PLAN: An 80-year-old female with [id number] hyponatremia and now admitted with more severe hyponatremia and weakness. 1. Hyponatremia: This is multifactorial secondary to significantly high amount of fluid intake combined with very low protein/solid food intake, creating a significant mismatch. Advised 1500 mL per day fluid restriction. Given her body size and activity level, this is more than enough fluid and this is the mainstay of her treatment. 2. Her blood pressure is already trending high, so I do not want to give her too many salt tablet. We will continue with the urea packet at least for the time being. 3. I would also give 1 dose of Lasix to cause more free water diuresis and that should help with raising the serum sodium. MTDD
[2020-08-09] MEDS ORDERED: FUROSEMIDE 20 MG in SYRINGE 0 ML IV ONE (10:15)
--- NOTE | 2020-08-09 15:18 | Hospitalist Progress Note ---
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 Nephro was consulted and has helped to elevate her Na level. Cont to trend. (2) Generalized weakness: improved generally, now she is eating and reports feeling better overall. (3) Type 2 diabetes mellitus: -Hold metformin -on insulin sliding scale -HbA1c 6.8 -continue diabetic, vegan diet (4) Hypothyroid: Hypothyroidism -continue home dose levothyroxine 25 mcg daily -check TSH (5) Cervical radiculopathy: DJD in c-spine on recent cervical MRI one month ago with chronic cervical radiculopathy symptoms. Cont conservative measures including Tylenol, Tramadol and PT/OT for now. Recently received steroid injection with some improvement. (6) HTN (hypertension): likely related to salt tabs, cont to monitor for now. (7) DVT prophylaxis: Lovenox Full Code Dipso-to home at [place]. Discussed the case at length with her son by phone. Naina Costa [facility] and Anticipated Discharge Date Admission Date: August 07, 2020 Subjective eating well today, feels clinically improved overall denies UTI symptoms pain improved in shoulder after recent steroid injection. Review of Systems Review of Systems: All systems reviewed & are unremarkable except as noted in Subjective Physical Exam Physical Exam: CONSTITUTIONAL: thin, vitals as above, generally well- appearing, looks younger than stated age. EYES: normal conjunctivae, no scleral icterus ENT: external ear and nose normal, oropharynx clear, MMM RESPIRATORY: clear to auscultation bilaterally, no crackles, rales or wheezes, normal respiratory effort CARDIOVASCULAR: regular rate and rhythm, S1 and 2 heard without murmurs, gallops or rubs, no JVD, no peripheral edema GASTROINTESTINAL: soft, nontender, nondistended, no guarding. MUSCULOSKELETAL: strength 5/5 throughout, head is normocephalic and atraumatic, no gross focal deficits. SKIN: warm and dry NEUROLOGIC: CN 2-12 grossly intact, no sensory deficit, normal cognition, no rmal speech, no tremor. No gross focal deficit. PSYCHIATRIC: alert cooperative and oriented to person, place and time. Results & Data Results & Data ([facility]) Vital Signs (Past 12 Hours) Vital Signs Temp Pulse Pulse Resp BP BP Pulse Ox 08/09/20 11:15 36.8 C 83 19 126/71 99 08/09/20 08:15 36.4 C L 72 20 173/77 H 100 08/09/20 07:00 72 08/09/20 03:21 36.7 C 73 17 177/69 H 99 Laboratory Results Short CBC 08/09/20 Range/Units 00:32 WBC 18.27 H (4.8-10.8) K/uL Hgb 11.2 L (12.0-16.0) g/dL Hct 31.6 L (37-47) % Plt Count 457 H (130-400) K/uL BMP 08/08/20 08/09/20 19:12 00:32 Sodium 124 L 128 L Potassium 3.8 3.8 Chloride 92 L 95 L Carbon Dioxide 24 26 BUN 17 28 H D Creatinine 0.66 0.55 L Glucose 193 H 170 H Calcium 8.1 L 8.5 Liver Function 08/09/20 Range/Units 00:32 Total Bilirubin 0.2 (0.2-1) mg/dl AST 12 L (15-37) U/L ALT 19 (12-78) U/L Alkaline Phosphatase 52 (45-117) U/L Albumin 3.0 L (3.4-5.0) gm/dl Medications Administered Current Inpatient Medications Acetaminophen (Acetaminophen 325 Mg Tab) 325 mg PO Q6H PRN PRN Reason: Pain or Fever Stop: 09/07/20 09:41 Ascorbic Acid (Ascorbic Acid 500 Mg Tab) 500 mg PO DAILY LOGAN Stop: 09/07/20 08:59 Last Admin: 08/09/20 09:35 Dose: 500 mg Documented by: Cyanocobalamin (Cyanocobalamin 500 Mcg Tablet (Vitamin B-12)) 1,000 mcg PO DAILY LOGAN Stop: 09/07/20 08:59 Last Admin: 08/09/20 09:34 Dose: 1,000 mcg Documented by: Dextrose (Dextrose 50% 50 Ml Syringe) 25 - 50 ml IV UD PRN; Protocol PRN Reason: Hypoglycemia Protocol Stop: 12/03/20 02:14 Enoxaparin Sodium (Enoxaparin Inj 40 Mg/0.4 Ml Syr) 40 mg SQ QAM [facility] Stop: 09/08/20 08:59 Last Admin: 08/09/20 09:34 Dose: 40 mg Documented by: Famotidine (Famotidine 20 Mg Tab) 20 mg PO BID LOGAN Stop: 09/07/20 20:59 Last Admin: 08/09/20 09:34 Dose: 20 mg Documented by: Glucagon (Glucagon For Inj 1 Mg Vial) 1 mg IM UD PRN; Protocol PRN Reason: Hypoglycemia Protocol Stop: 09/07/20 02:14 Glucose (Glucose 40% Gel 15 Gm Tube) 15 - 30 gm PO UD PRN; Protocol PRN Reason: Hypoglycemia Protocol Stop: 09/07/20 02:14 Glucose (Glucose 10 Tabs/Tube) 4 - 8 tabs PO UD PRN; Protocol PRN Reason: Hypoglycemia Protocol Stop: 09/07/20 02:14 Ceftriaxone Sodium 1,000 mg/ (Dextrose) 50 mls @ 100 mls/hr IV Q24H [facility]; Protocol Stop: 08/13/20 00:59 Last Infusion: 08/09/20 00:50 Dose: Infused Documented by: Insulin Aspart (Insulin Aspart 100 Units/Ml 3 Ml Pen) 0 units SC ACHS [facility] Stop: 09/07/20 07:29 Last Admin: 08/09/20 11:46 Dose: Not Given Documented by: Levothyroxine Sodium (Levothyroxine Sodium 25 Mcg Tablet) 25 mcg PO DAILYBB [facility] Stop: 09/07/20 06:29 Last Admin: 08/09/20 05:40 Dose: 25 mcg Documented by: Miscellaneous (Carbohydrates For Hypoglycemia ) 15 - 30 gm PO UD PRN PRN Reason: Hypoglycemia Treatment Stop: 09/07/20 02:14 Multivitamins (Multivitamin Tab) 1 tab PO DAILY LOGAN Stop: 09/07/20 08:59 Last Admin: 08/09/20 09:34 Dose: 1 tab Documented by: Nitroglycerin (Nitroglycerin Sl 0.4 Mg/Tab Tab) 0.4 mg SL UD PRN PRN Reason: Chest Pain Stop: 09/07/20 00:23 Ondansetron HCl (Ondansetron Inj 2 Mg/Ml 2 Ml Vial) 4 mg IV Q6H PRN PRN Reason: Nausea Stop: 09/07/20 00:23 Sodium Chloride (Sodium Chloride 1 Gm Tablet) 1 gm PO DAILY LOGAN Stop: 09/07/20 21:44 Last Admin: 08/09/20 09:34 Dose: 1 gm Documented by: Travoprost (Travoprost Z 0.004% Oph Soln 2.5 Ml Btl) 1 drops OP BID LOGAN Stop: 09/08/20 08:59 Last Admin: 08/09/20 09:33 Dose: 1 drops Documented by: Urea (Urea (Ure-Na) 15 Gm Pack) 7.5 gm PO BID LOGAN Stop: 08/09/20 21:01 Last Admin: 08/09/20 09:33 Dose: 7.5 gm Documented by: Vitamin B Complex (Vitamin B Complex Tab) 1 tab PO DAILY LOGAN Stop: 09/07/20 08:59 Last Admin: 08/09/20 09:34 Dose: 1 tab Documented by: Vitamin D (Cholecalciferol 1,000 Units 25 Mcg Tab) 2,000 units PO DAILY LOGAN Stop: 09/07/20 08:59 Last Admin: 08/09/20 09:34 Dose: 2,000 units Documented by:
[2020-08-10] MEDS: cefTRIAXone SODIUM 1,000 MG in DEXTROSE 5% 50 ML IV SCH (00:51)
[2020-08-10] MEDS: LEVOTHYROXINE SODIUM 25 MCG TABLET PO SCH (05:53)
[2020-08-10 07:17] LABS: Basophils # (auto) 0.01 K/uL (0-0.2); Basophils % (auto) 0.1 %; Eosinophils # (auto) 0.04 K/uL (0-0.5); Eosinophils % (auto) 0.3 %; Hematocrit (blood only) 31.4 % (37-47); Hemoglobin 10.7 g/dL (12.0-16.0); Immature Granulocytes # (auto) 0.11 K/uL (0.00-0.02); Immature Granulocytes % (auto) 0.7 %; Lymphocytes # (auto) 2.08 K/uL (1.2-3.4); Lymphocytes % (auto) 13.1 %; Mean Corpuscular Hemoglobin 27.6 pg (25-34); Mean Corpuscular Hgb Conc 34.1 g/dL (32-36); Mean Corpuscular Volume 81.1 fL (80-100); Mean Platelet Volume 8.4 fL (7.4-10.4); Monocytes # (auto) 1.33 K/uL (0.11-0.59); Monocytes % (auto) 8.4 %; Neutrophils # (auto) 12.28 K/uL (1.4-6.5); Neutrophils % (auto) 77.4 %; Platelet Count 454 K/uL (130-400); RDW Coefficient of Variation 13.5 % (11.5-14.5); RDW Standard Deviation 40.3 fL (36.4-46.3); Red Blood Count 3.87 M/uL (4.2-5.4); White Blood Count 15.85 K/uL (4.8-10.8)
[2020-08-10] MEDS: INSULIN ASPART 100 UNITS/ML 3 ML PEN SC SCH ×4 (07:52→21:31)
[2020-08-10 07:55] LABS: BUN Creatinine Ratio 40.2 (10-20); Calcium 8.5 mg/dl (8.5-10.1); Creatinine Clr Calc Pharmacy 44.4 ml/min; Est GFR (African American) 100.6; Est GFR (Non-African American) 86.8; Potassium 3.8 mmol/L (3.5-5.1)
[2020-08-10] MEDS: MULTIVITAMIN TAB PO SCH (08:00)
[2020-08-10] MEDS: SODIUM CHLORIDE 1 GM TABLET PO SCH (08:00)
[2020-08-10] MEDS: TRAVOPROST Z 0.004% OPH SOLN 2.5 ML BTL OP SCH ×2 (08:00→19:31)
[2020-08-10] MEDS: CYANOCOBALAMIN 500 MCG TABLET (VITAMIN B-12) PO SCH (08:00)
[2020-08-10] MEDS: CHOLECALCIFEROL 1,000 UNITS 25 MCG TAB PO SCH (08:00)
[2020-08-10] MEDS: VITAMIN B COMPLEX TAB PO SCH (08:00)
[2020-08-10] MEDS: ENOXAPARIN INJ 40 MG/0.4 ML SYR SQ SCH (08:00)
[2020-08-10] MEDS: ASCORBIC ACID 500 MG TAB PO SCH (08:00)
[2020-08-10] MEDS: FAMOTIDINE 20 MG TAB PO SCH ×2 (08:00→19:31)
[2020-08-10] MEDS ORDERED: FUROSEMIDE 20 MG in SYRINGE 0 ML IV ONE (09:45)
--- NOTE | 2020-08-10 15:25 | Hospitalist Progress Note ---
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 Nephro was consulted and has helped to elevate her Na level to baseline today-132 this am and 131 this afternoon. Will trend tomorrow morning and if stable will plan for dc to home with continued fluid restriction of 1.5L and close PCP followup. (2) Generalized weakness: resolved. Appears to be moving around at her baseline. (3) Type 2 diabetes mellitus: -Hold metformin -on insulin sliding scale -HbA1c 6.8 -continue diabetic, vegan diet -well controlled-one high reading was likely related to previous steroid injection prior to arrival (4) Hypothyroid: cont Synthroid per home regimen. (5) Cervical radiculopathy: DJD in c-spine on recent cervical MRI one month ago with chronic cervical radiculopathy symptoms. Cont conservative measures including Tylenol, Tramadol and PT/OT for now. Recently received steroid injection with some improvement. (6) HTN (hypertension): Pt is on salt tabs and encouraged to take in more salt in her diet and decrease fluid intake. She is already somewhat hypertensive, however. After discussion with Nephrology will plan to start low dose Losartan. Repeat BMP in 2 weeks with PCP. (7) DVT prophylaxis: Lovenox Full Code Dispo-to home in am. Naina Costa DO [facility] Hospitalist Admission and Anticipated Discharge Date Admission Date: August 07, 2020 Subjective eating well today pain controlled in shoulder discussed some conservative therapies for pain including scheduled Tylenol, Tylenol with Tramadol, and PT or massage. discussed case with Dr. Venegas who spoke with her son by phone and answered all questions. The patient is feeling well and Na has improved to low 130s which is her baseline. Review of Systems Review of Systems: All systems reviewed & are unremarkable except as noted in Subjective Physical Exam Physical Exam: CONSTITUTIONAL: thin, vitals as above, generally well- appearing, looks younger than stated age. EYES: normal conjunctivae, no scleral icterus ENT: external ear and nose normal, oropharynx clear, MMM RESPIRATORY: clear to auscultation bilaterally, no crackles, rales or wheezes, normal respiratory effort CARDIOVASCULAR: regular rate and rhythm, S1 and 2 heard without murmurs, gallops or rubs, no JVD, no peripheral edema GASTROINTESTINAL: soft, nontender, nondistended, no guarding. MUSCULOSKELETAL: strength 5/5 throughout, head is normocephalic and atraumatic, no gross focal deficits. SKIN: warm and dry NEUROLOGIC: CN 2-12 grossly intact, no sensory deficit, normal cognition, normal speech, no tremor. No gross focal deficit. PSYCHIATRIC: alert cooperative and oriented to person, place and time. Results & Data Results & Data ([facility]) Vital Signs (Past 12 Hours) Vital Signs Temp Pulse Pulse Resp BP Pulse Ox 08/10/20 12:42 36.8 C 88 18 159/67 H 96 08/10/20 11:38 37.1 C 79 16 148/70 H 98 08/10/20 07:57 37.0 C 88 18 159/82 H 96 08/10/20 07:00 79 08/10/20 03:39 37.0 C 76 17 166/80 H 98 Laboratory Results Short CBC 08/10/20 Range/Units 06:50 WBC 15.85 H (4.8-10.8) K/uL Hgb 10.7 L (12.0-16.0) g/dL Hct 31.4 L (37-47) % Plt Count 454 H (130-400) K/uL BMP 08/10/20 06:50 Sodium 132 L Potassium 3.8 Chloride 99 Carbon Dioxide 27 BUN 22 H Creatinine 0.56 L Glucose 154 H Calcium 8.5 Medications Administered Current Inpatient Medications Acetaminophen (Acetaminophen 325 Mg Tab) 325 mg PO Q6H PRN PRN Reason: Pain or Fever Stop: 09/07/20 09:41 Ascorbic Acid (Ascorbic Acid 500 Mg Tab) 500 mg PO DAILY LOGAN Stop: 09/07/20 08:59 Last Admin: 08/10/20 08:00 Dose: 500 mg Documented by: Cyanocobalamin (Cyanocobalamin 500 Mcg Tablet (Vitamin B-12)) 1,000 mcg PO DAILY LOGAN Stop: 09/07/20 08:59 Last Admin: 08/10/20 08:00 Dose: 1,000 mcg Documented by: Dextrose (Dextrose 50% 50 Ml Syringe) 25 - 50 ml IV UD PRN; Protocol PRN Reason: Hypoglycemia Protocol Stop: 09/07/20 02:14 Enoxaparin Sodium (Enoxaparin Inj 40 Mg/0.4 Ml Syr) 40 mg SQ QAM LOGAN Stop: 09/08/20 08:59 Last Admin: 08/10/20 08:00 Dose: 40 mg Documented by: Famotidine (Famotidine 20 Mg Tab) 20 mg PO BID LOGAN Stop: 09/07/20 20:59 Last Admin: 08/10/20 08:00 Dose: 20 mg Documented by: Glucagon (Glucagon For Inj 1 Mg Vial) 1 mg IM UD PRN; Protocol PRN Reason: Hypoglycemia Protocol Stop: 09/07/20 02:14 Glucose (Glucose 40% Gel 15 Gm Tube) 15 - 30 gm PO UD PRN; Protocol PRN Reason: Hypoglycemia Protocol Stop: 09/07/20 02:14 Glucose (Glucose 10 Tabs/Tube) 4 - 8 tabs PO UD PRN; Protocol PRN Reason: Hypoglycemia Protocol Stop: 09/07/20 02:14 Ceftriaxone Sodium 1,000 mg/ (Dextrose) 50 mls @ 100 mls/hr IV Q24H [facility]; Protocol Stop: 08/13/20 00:59 Last Infusion: 08/10/20 01:36 Dose: Infused Documented by: Insulin Aspart (Insulin Aspart 100 Units/Ml 3 Ml Pen) 0 units SC ACHS [facility] Stop: 09/07/20 07:29 Last Admin: 08/10/20 12:27 Dose: Not Given Documented by: Levothyroxine Sodium (Levothyroxine Sodium 25 Mcg Tablet) 25 mcg PO DAILYBB [facility] Stop: 09/07/20 06:29 Last Admin: 08/10/20 05:53 Dose: 25 mcg Documented by: Miscellaneous (Carbohydrates For Hypoglycemia ) 15 - 30 gm PO UD PRN PRN Reason: Hypoglycemia Treatment Stop: 09/07/20 02:14 Multivitamins (Multivitamin Tab) 1 tab PO DAILY [facility] Stop: 09/07/20 08:59 Last Admin: 08/10/20 08:00 Dose: 1 tab Documented by: Nitroglycerin (Nitroglycerin Sl 0.4 Mg/Tab Tab) 0.4 mg SL UD PRN PRN Reason: Chest Pain Stop: 09/07/20 00:23 Ondansetron HCl (Ondansetron Inj 2 Mg/Ml 2 Ml Vial) 4 mg IV Q6H PRN PRN Reason: Nausea Stop: 09/07/20 00:23 Sodium Chloride (Sodium Chloride 1 Gm Tablet) 1 gm PO DAILY LOGAN Stop: 09/07/20 21:44 Last Admin: 08/10/20 08:00 Dose: 1 gm Documented by: Travoprost (Travoprost Z 0.004% Oph Soln 2.5 Ml Btl) 1 drops OP BID LOGAN Stop: 09/08/20 08:59 Last Admin: 08/10/20 08:00 Dose: 1 drops Documented by: Vitamin B Complex (Vitamin B Complex Tab) 1 tab PO DAILY LOGAN Stop: 09/07/20 08:59 Last Admin: 08/10/20 08:00 Dose: 1 tab Documented by: Vitamin D (Cholecalciferol 1,000 Units 25 Mcg Tab) 2,000 units PO DAILY LOGAN Stop: 09/07/20 08:59 Last Admin: 08/10/20 08:00 Dose: 2,000 units Documented by:
[2020-08-10 15:58] LABS: BUN Creatinine Ratio 35.1 (10-20); Calcium 8.7 mg/dl (8.5-10.1); Creatinine Clr Calc Pharmacy 38.8 ml/min; Est GFR (African American) 96.3; Est GFR (Non-African American) 83.1; Potassium 3.4 mmol/L (3.5-5.1)
--- NOTE | 2020-08-10 15:58 | Progress Notes ---
DATE: 08/10/2020 SUBJECTIVE: The patient still feels somewhat weak. She is now on fluid restriction. Sodium is better at 132. OBJECTIVE: VITAL SIGNS: Blood pressure is somewhat high 159/67, pulse rate 88, temperature 36.8, 96% on room air. HEENT: Mucous membrane is moist. NECK: Supple. No jugular venous distention. CHEST: Bilateral clear to auscultation. CARDIOVASCULAR: S1 and S2, regular. ABDOMEN: Soft, nontender. EXTREMITIES: Shows no edema. LABORATORY TESTS: Sodium 132, BUN 22, creatinine 0.56. ASSESSMENT AND PLAN: An 80-year-old female who has a history of mild intermittent hyponatremia and now admitted with more severe hyponatremia and weakness. 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 She was drinking close to 200 ounces of liquid per day prior to hospital admission, now with fluid restriction, sodium is better at 132. We will continue with the 1500 mL fluid restriction at outpatient. She can have slightly more salt in her diet and would also need some antihypertensive. I would probably use losartan 50 mg daily. This may allow us to use little more salt in her diet, but the mainstay of her treatment is fluid restriction. Also, anytime she has any acute issues as an outpatient one of the things that needs to be checked in the serum sodium.
[2020-08-10] MEDS: LOSARTAN POTASSIUM 50 MG TAB PO SCH (18:07)
[2020-08-11] MEDS: FAMOTIDINE 20 MG TAB PO SCH (07:30)
[2020-08-11] MEDS: LOSARTAN POTASSIUM 50 MG TAB PO SCH (07:30)
[2020-08-11] MEDS: MULTIVITAMIN TAB PO SCH (07:31)
[2020-08-11] MEDS: SODIUM CHLORIDE 1 GM TABLET PO SCH (07:31)
[2020-08-11] MEDS: LEVOTHYROXINE SODIUM 25 MCG TABLET PO SCH (07:31)
[2020-08-11] MEDS: CHOLECALCIFEROL 1,000 UNITS 25 MCG TAB PO SCH (07:32)
[2020-08-11] MEDS: ASCORBIC ACID 500 MG TAB PO SCH (07:32)
[2020-08-11] MEDS: INSULIN ASPART 100 UNITS/ML 3 ML PEN SC SCH ×2 (07:34→12:01)
[2020-08-11] MEDS: ENOXAPARIN INJ 40 MG/0.4 ML SYR SQ SCH (07:34)
[2020-08-11] MEDS: TRAVOPROST Z 0.004% OPH SOLN 2.5 ML BTL OP SCH (07:35)
[2020-08-11 08:15] LABS: BUN Creatinine Ratio 26.3 (10-20); Calcium 9.1 mg/dl (8.5-10.1); Creatinine Clr Calc Pharmacy 42.1 ml/min; Est GFR (African American) 98.9; Est GFR (Non-African American) 85.4; Potassium 4.4 mmol/L (3.5-5.1)
[2020-08-11] MEDS ORDERED: CYANOCOBALAMIN 1000 MCG/ML VIAL IM ONE (08:50)
--- NOTE | 2020-08-11 08:52 | Discharge Summary ---
Date of Service August 11, 2020 Admission HPI Per Admitting Provider HISTORY OF PRESENT ILLNESS: This is an 80-year-old female with past medical history significant for diabetes, hypothyroidism, senile osteoporosis, senile osteoarthritis, degenerative disc disease of lumbosacral and cervical, glaucoma, the patient lives with her , was brought in because of ongoing weakness and outpatient labs showed hyponatremia. The patient was recently started seen by Rita on 07/27/2020 and labs showed sodium of 130 and she also has a history of osteoporosis and back pain, neck pain, shoulder aches. Imaging studies moderate degenerative disc disease at L3-L4, L4-L5 advanced disease at L5-S1on x-rays, she has also cervical MRI done in [facility] on 07/24/2020 which shows multilevel discogenic degeneration and facet arthrosis resulting in mild central canal stenosis at C4-C5, C5-C6 with multilevel foraminal narrowing. No acute fracture or subluxation, or bone marrow edema seen.She followed with rheumatology on 08/02/2020 . She was initially started on gabapentin, tizanidine, Cymbalta and prednisone taper, preventive maintenance coordinator stopped the gabapentin and continue with Cymbalta.But she was feeling weak and tired and she was falling at home. She has loss of appetite, not eating anything for several days and patient says she did micturate for a couple of days and only she started micturating yesterday and today and she is only ate little bit of food as per daughter and she also took Cymbalta only for a few days and stopped about 4 or 5 days ago and again labs were done outpatient today showed sodium of 123 and she was advised to come to the hospital. Urinalysis showing positive for UTI. As per daughter, she was somewhat disoriented at home yesterday, but she had a steroid shot today to her cervical spine, that went okay, but after coming home, she seemed a little confused and she was brought in here. Currently, she is much more alert and oriented, seems to be back to her baseline. Denies any headache, no earache, no runny nose, no sore throat, no cough, no fever, no chills, no chest pain, no shortness of breath, no nausea, no abdominal pain. Normal bowel movements. She says she did not micturate for couple of days, started micturating now. Denies any burning micturition, no swelling in the legs seen, no rash seen. Currently resting comfortably and hemodynamically stable. Admission Exam Per Admitting Provider PHYSICAL EXAMINATION: GENERAL: The patient is of moderate build, not in acute distress. VITAL SIGNS: Temperature 36.5, pulse 70, respiratory rate 20, blood pressure 161/87 and oxygen 96% on room air. HEENT: Pupils equal, round, reactive to light. No pallor, no icterus. Oral mucosa moist. NECK: No JVD, no neck masses seen. CARDIOVASCULAR: S1, S2 heard, regular rate and rhythm, no murmur, no gallop. RESPIRATORY SYSTEM: Normal AP diameter. No accessory muscle use. No wheezing, no crackles. ABDOMEN: Soft, bowel sounds present, nontender. No distention. CENTRAL NERVOUS SYSTEM: Alert and oriented. Cranial nerves II-XII grossly intact. Strength 5/5 in all extremities. Coordination of movements normal. No pronator drift. EXTREMITIES: No edema, no erythema. Principal Diagnosis Acute Hyponatremia Generalized weakness Cervical Radiculopathy Discharge Exam CONSTITUTIONAL: thin, vitals as above, generally well-appearing, looks younger than stated age. EYES: normal conjunctivae, no scleral icterus ENT: external ear and nose normal, oropharynx clear, MMM RESPIRATORY: clear to auscultation bilaterally, no crackles, rales or wheezes, normal respiratory effort CARDIOVASCULAR: regular rate and rhythm, S1 and 2 heard without murmurs, gallops or rubs, no JVD, no peripheral edema GASTROINTESTINAL: soft, nontender, nondistended, no guarding. MUSCULOSKELETAL: strength 5/5 throughout, head is normocephalic and atraumatic, no gross focal deficits. SKIN: warm and dry NEUROLOGIC: CN 2-12 grossly intact, no sensory deficit, normal cognition, normal speech, no tremor. No gross focal deficit. PSYCHIATRIC: alert cooperative and oriented to person, place and time. Discharge Data Allergies Allergy/AdvReac Type Severity Reaction Status Date / Time salicylates Allergy Severe HIVES Verified 08/07/20 13:16 monosodium glutamate Allergy Mild Verified 08/07/20 13:16 Penicillins Allergy Mild Verified 08/07/20 13:16 Sulfa (Sulfonamide Allergy Mild Verified 08/07/20 13:16 Antibiotics) alendronate sodium Allergy Unknown UNKNOWN Verified 08/07/20 13:16 Consultations 08/07/20 22:51 ED Decision to Admit Stat 08/08/20 00:24 Consult Case Management - Discharge Planning Routine 08/08/20 08:00 Consult Nephrology Routine Hospital Course (1) Acute hyponatremia: (2) Generalized weakness: (3) Cervical radiculopathy: (4) HTN (hypertension): The patient is an 80-year-old female with a baseline sodium in the low 130s who presented with generalized weakness and acute hyponatremia. She reportedly took Cymbalta for only a few days and then stopped and and had decreased appetite not eating much and drinking fluids only for approximately 4 to 5 days prior to arrival. Nephrology was consulted and she was started on IV fluids with sodium trended closely. She was also started on Rocephin empirically for possible urinary tract infection, however this was stopped when the urine culture was unrevealing. The patient was asymptomatic outside of her generalized weakness. Her admission sodium was 124 and trended up with treatment. The pari mutuel ticket seller felt she needed to increase her protein intake which is somewhat difficult as she is a vegetarian and felt that her liquid intake was disproportionately high for the amount of solid food she was eating contributing to her low sodium. She was started on a few doses of urea and transition to salt tablets. She was additionally given 2 doses of Lasix in the hospital. Over the next couple of days this improved her sodium level back to baseline and by discharge her sodium was 134. By hospital day 2 she was already clinically improved and tolerating food. Her pain from cervical radiculopathy was also improved after having a steroid shot just prior to arrival. This uncontrolled pain for 4 to 5 days may also have contributed to her low sodium issue. Moving forward it is recommended that she liberalize sodium in her diet and/or use prescription salt tablets. She will need to remain on a fluid restriction of 1500 to 2000 L of fluid daily. As she was already borderline hypertensive she was placed on losartan 50 mg daily and will need a repeat BMP in 2 weeks. Close primary care follow-up was recommended. At time of discharge he was hemodynamically stable and afebrile and tolerating p.o. She was mentating and ambulating at baseline oxygenating well on room air. She was asymptomatic and stable for discharge home. Total Time Total Time Spent Total Time Spent (In Minutes): 60 Total Time Includes: Examination of the Patient, Discharge Planning, Medication Reconciliation and Communication With Other Providers Discharge Plan Discharge Items Patient Disposition: Home - Home Health Services Reason For Visit: Hyponatremia Discharge Diagnosis: Acute Hyponatremia Generalized weakness Cervical Radiculopathy Condition on Discharge: Good Activity: Resume your previous activity Non-emergency contact: Primary Care Provider Call non-emergency contact if: you have any medication questions, your symptoms worsen, your pain is not controlled, your pain is worsening, your pain is unusual for you, your pain is concerning for you and you have a fever Follow-up/Referrals: Tabitha Hall MD [Primary Care Provider] - (Date & Time 08/17/2020 11:20 AM Provider Tabitha Hall MD Department General Internal Medicine [facility] ) Diet: Carb Consistent or DM2 Fluids: 1500ml (6 cups) Addtl Attending Provider Instructions: Please take all medications as instructed on discharge list below. It is recommended that you follow-up with your primary care provider (PCP) in 1- 2 weeks to recheck your sodium and ensure you are doing well from the standpoint of pain in your shoulder. As a recommendation from the pari mutuel ticket seller, try to cap the amount of fluid intake to 1.5 to 2L daily, especially if you are not eating much. You may also liberalize the sodium (salt) in your diet. As this may affect your blood pressure slightly, you have been placed on a new blood pressure medication called Losartan. In two weeks, it is recommended to check kidney function and electrolytes to monitor the effect of this drug on your body, which may be ordered by your PCP. It was a pleasure taking care of you! Please call if you have any questions or problems. You can reach a [facility] hospitalist on duty at [facility] 24 hours a day by calling [phone]. Take care of yourself. Naina Costa, [facility] Hospitalist Pending Studies at Discharge: No Stand-Alone Forms: My [facility], Smoking Cessation Medications and DC Order Prescriptions: New losartan 50 mg Tablet 50 mg PO QAM Qty: 30 RF: 1 Continued vitamin B complex [B Complex-Vitamin B12] Tablet 1 tab PO DAILY RF: 0 multivitamin Tablet 1 tab PO DAILY RF: 0 metformin 500 mg tablet extended release 24 hr 500 mg PO DAILY Qty: 90 RF: 1 cyanocobalamin (vitamin B-12) 1,000 mcg/mL kit 100 mcg IM .COMPLEX Qty: 1 RF: 0 ascorbic acid (vitamin C) 500 mg tablet 500 mg PO DAILY RF: 0 cholecalciferol (vitamin D3) 2,000 unit tablet 2,000 units PO DAILY RF: 0 travoprost 0.004 % drops 1 drops OP QPM Qty: 3 RF: 0 levothyroxine [Synthroid] 25 mcg tablet 25 mcg PO DAILY Qty: 90 RF: 3 mecobalamin (vitamin B12) 1,000 mcg tablet,chewable 1,000 mcg PO DAILY Qty: 90 RF: 3 diclofenac sodium 1 % gel 1 ea TOPICAL QID RF: 0 vitamin E 100 unit Tablet 0 unit PO DAILY RF: 0 Discharge Orders: Discharge Order (Routine); Ordered 08/11/20 Ordered By: Naina Tripp/Other Patient Handouts: Managing Type 2 Diabetes Admission Data Admit Date/Time: 08/07/20 23:39 Attending Provider: Naina Costa Admit Provider: Bora Rodriguez Primary Care Provider: Tabitha Hall Other Providers: [facility],Home Healthcare ; Bora Rodriguez ; Shara Villa
[2020-08-11] MEDS: CYANOCOBALAMIN 500 MCG TABLET (VITAMIN B-12) PO SCH (09:01)
--- NOTE | 2020-08-11 10:11 | Progress Notes ---
DATE: 08/11/2020 SUBJECTIVE: The patient feels somewhat better. Sodium is also getting better. PHYSICAL EXAMINATION: VITAL SIGNS: Blood pressure is 137/69, pulse rate 81, temperature 36.7, 98% on room air. HEENT: Mucous membranes moist. NECK: Supple. No jugular venous distention. CHEST: Bilateral clear to auscultation. CARDIOVASCULAR: S1 and S2, regular. ABDOMEN: Soft, nontender. EXTREMITIES: Shows no edema. LABORATORY TESTS: From this morning shows sodium 134, potassium 4.4, BUN 16, creatinine 0.59. WBC count 15,000, hemoglobin 10.7. ASSESSMENT AND PLAN: An 80-year-old female with history of mild intermittent hyponatremia and now admitted with more severe hyponatremia and weakness. Hyponatremia. 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 She was drinking close to 200 ounces of liquid per day prior to hospital admission. Now with fluid restriction of 1500 mL. Sodium is improving and is up to 130 for now. We will continue with the 1500 mL fluid restriction as outpatient to start with. She can have slightly more salt in her diet. Her blood pressure has been somewhat high and to allow for a slightly higher salt intake, we will add losartan 50 mg per outpatient. Further adjustment of her fluid restriction limit will have to be made as an outpatient based on her blood test, it is worth noting that such type of hyponatremia is very difficult to manage as an outpatient because the treatment of the hyponatremia depends on the input from the patient.
[2020-08-11] MEDS: VITAMIN B COMPLEX TAB PO SCH (10:23)
== END 2020-08-11 14:21 | disposition home health service (06) ==
LOC: ED 21:31 → 2S 23:39 → INTOOBSV 23:39 → SUATTDRO 23:39 → 2S 08-08 00:03 → 2W 08-10 13:06

== ENCOUNTER 2021-03-21 09:14 | Inpatient (IN) ==
[2021-03-21] MEDS ORDERED: ONDANSETRON INJ 2 MG/ML 2 ML VIAL IV STA (09:21)
[2021-03-21] MEDS ORDERED: fentaNYL citrate 100 MCG/2 ML VIAL IV PRN (09:21)
[2021-03-21] MEDS ORDERED: SODIUM CHLORIDE 0.9% 500 ML IV STA (09:21)
--- NOTE | 2021-03-21 09:26 | Emergency Department Note ---
Impression & Plan Subcapital fracture of left hip, Closed fracture of greater trochanter of left femur ED Provider Note NAME: YONNY FARLEY AGE: 81 SEX: F : 1940 ARRIVES VIA: Ambulance INFORMANT: Patient, ED PROVIDER(S): Saul Ryder DO CHIEF COMPLAINT: Hip pain HPI: The patient is an 81-year-old female who presented to the emergency de partment by ambulance after a fall. The patient was doing exercises in her home and was rushing to answer a marcelino. When she went to answer she was rushing and fell onto her left side. She had severe pain in her left hip immediately. She was unable to ambulate. She called 911 and the patient arrived via ambulance. The patient denies striking her head. She has no neck pain or back pain. She d enies having any loss of consciousness or headache. The patient states pain is moderate to severe and worsens with any movement of her left leg. She also has pain with palpation of the lateral aspect of her left leg. She denies having any nausea or vomiting. She has had no recent fevers but was in our facility 2 months ago after having a syncopal episode. She states that those symptoms have not reoccurred. She was found to have electrolyte abnormalities at that time. ROS: See above HPI for pertinent positives & negatives. A total of 10 systems reviewed and were otherwise negative. PAST MEDICAL HISTORY: See Below PAST SURGICAL HISTORY: See Below FAMILY HISTORY: See Below SOCIAL HISTORY: See Below HOME MEDICATIONS: See Below ALLERGIES: See Below VITALS: See Below PHYSICAL EXAMINATION: GENERAL: The patient is awake and alert. The patient is anxious appearing. EYES: The conjunctivae are clear. The pupils are round and reactive. EARS, NOSE, MOUTH AND THROAT: The nose is without any evidence of any deformity. NECK: The neck is nontender and supple. RESPIRATORY: Normal respiratory effort is noted there is no evidence of wheezing rhonchi or rales CARDIOVASCULAR: Regular rate and rhythm noted there no murmurs rubs or gallops normal S1 normal S2. GASTROINTESTINAL: The abdomen is soft. Abdomen is nontender. MUSCULOSKELETAL/EXTREMITIES: There is shortening of the left leg. There is palpable tenderness over the left lateral hip but pain is severe with any range of motion testing left hip. There is no deformity below the knee or palpable tenderness below the knee. SKIN: There is no obvious evidence of any rash. There are no petechiae, pallor o r cyanosis noted. NEUROLOGIC: Patient is awake alert and oriented x3. MEDICAL DECISION MAKING: The patient is an 81-year-old female who presented to the emergency department after a fall. The patient fall onto her left side and was suffering significant left hip pain with any manipulation of the leg. I discussed the patient's laboratory and radiographic studies with her. She was treated with pain medication in the emergency department. I also discussed her condition with her son who is a neurosurgeon. He did request that the [facility] be consulted for orthopedic consultation. [facility] have agreed to evaluate the patient in the emergency department for further management and disposition. Triage Nursing notes reviewed. Prior medical records reviewed Vital Signs: reviewed and remarkable for no significant abnormalities Differential diagnosis: Fracture, subluxation, dislocation, contusion, ligamentous injury, neurovascular, compartment syndrome, rhabdomyolysis, as well as other pathologies. ER treatment provided: See below Diagnostics interpreted by me: ECG: EKG was obtained in the emergency department. My interpretation is normal sinus rhythm at 85 bpm. There was no ectopy. There was no acute ST segment abnormalities noted. This was compared to a tracing from September 272019. No significant changes were noted. Cardiac Monitoring: An order was placed for continuous cardiac monitoring. The monitor shows a rate of 75 bpm with sinus rhythm. Laboratory studies: As stated above and show below. Imaging studies: See below Consultation(s): [id number]: I discussed this case with Kar[facility] will evaluate the patient in the emergency department. Past Med/Surg History Medical History Acute hyponatremia Cervical radiculopathy Cervical spinal stenosis Colon cancer screening Disc degeneration, lumbosacral Dyslipidemia Esophageal reflux Glaucoma HTN (hypertension) Hypochloremia Hypothyroid Numbness of left foot Osteoarthritis of knees, bilateral Osteoporosis Signs and symptoms involving cognition Skin abnormality Spondylolisthesis, acquired Thrombocytosis Type 2 diabetes mellitus with albuminuria Unsteady gait Surgical History History of tubal ligation Family History Sister Breast cancer Father Myocardial infarction Other No pertinent family history Denies family history of Colon cancer Ovarian cancer Prostate cancer Social History Smoking Status: Never smoker Hx Alcohol Use: No Hx Substance Use: No Preferred Language: American Communication Ability: Effective Visual Impairment: No Limitations Hearing Ability: Normal Clark 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: No Beliefs That Will Affect Care: None marital status: Current Living Situation: Spouse and Other Current Living Situation Comment: HOME HEALTH AIDE Other Information That Helps Us Care for You: No Feels Safe at Home: Yes Safety Concerns: Feels Safe At This Time Seatbelt Use: always Assistive Devices: None Allergies Allergies Allergy/AdvReac Type Severity Reaction Status Date / Time salicylates Allergy Severe HIVES Verified 03/21/21 11:50 monosodium glutamate Allergy Mild Verified 03/21/21 11:50 Penicillins Allergy Mild Verified 03/21/21 11:50 Sulfa (Sulfonamide Allergy Mild Verified 03/21/21 11:50 Antibiotics) alendronate sodium Allergy Unknown UNKNOWN Verified 03/21/21 11:50 Home Meds Home Medications Medication Instructions Recorded Confirmed ascorbic acid (vitamin C) 500 mg 500 mg PO DAILY tab 06/23/19 03/21/21 tablet cholecalciferol (vitamin D3) 50 2,000 units PO DAILY tab 06/23/19 03/21/21 mcg (2,000 unit) tablet travoprost 0.004 % eye drops 1 drops OP QPM #3 ml 06/23/19 03/21/21 diclofenac sodium 1 ea TOPICAL QID 08/07/20 03/21/21 sodium chloride 1,000 mg PO BID 10/02/20 03/21/21 calcium carbonate-vitamin D3 1 tab PO DAILY 03/21/21 03/21/21 [Calcium + D] coenzyme Q10 [CoQ-10] 100 mg PO DAILY 03/21/21 03/21/21 duloxetine 60 mg PO HS 03/21/21 03/21/21 metformin 1,000 mg PO BID 03/21/21 03/21/21 dkmirszmolvu-Oq-jdem-minerals 1 tab PO DAILY 03/21/21 03/21/21 [Women's Daily Multivitamin] Previous Rx's Medication Instructions Recorded cyanocobalamin (vitamin B-12) 100 mcg IM .COMPLEX #1 ea 06/29/20 1,000 mcg/mL injection kit amlodipine [Norvasc] 5 mg PO QAM #30 tab 10/02/20 sennosides-docusate sodium 1 tab PO BID PRN #60 tab 10/02/20 [Senokot-S] levothyroxine 25 mcg tablet 25 mcg PO DAILY #90 tab 11/30/20 Results & Data (ED) Vital Signs Vital Signs - 24 hr 03/21/21 09:21 03/21/21 11:06 Temperature 36.1 C L Temperature Source Oral Pulse Rate 89 Pulse Rhythm Regular Pulse Strength Normal Respiratory Rate 20 Respiratory Effort / Characteristics Non-Labored Spontaneous Respiratory Depth Normal Respiratory Pattern Regular Blood Pressure 144/73 H Blood Pressure Mean 96 Blood Pressure Position Sitting Pulse Oximetry 98 Oxygen Delivery Method Room Air Room Air Sepsis Recent Fever Within 48 Hours No Sepsis New/Unexplained Change in Mental Status N/A Sepsis Action Taken by Nursing No Action Required Home Medications Current Medication List: was personally reviewed by me Laboratory Data Attestation: I reviewed the patient's lab results. Result diagrams: 03/21/21 09:27 03/21/21 09:27 Lab Results 03/21/21 03/21/21 03/21/21 Range/Units 09:27 09:27 10:24 WBC 8.55 (4.8-10.8) K/uL RBC 4.27 (4.2-5.4) M/uL Hgb 12.1 (12.0-16.0) g/dL Hct 35.9 L (37-47) % MCV 84.1 (80-100) fL MCH 28.3 (25-34) pg MCHC 33.7 (32-36) g/dL RDW Std Deviation 42.8 (36.4-46.3) fL RDW Coeff of Maddie 14.0 (11.5-14.5) % Plt Count 351 (130-400) K/uL MPV 8.8 (7.4-10.4) fL Immature Gran % (Auto) 0.4 % Neut % (Auto) 69.0 % Lymph % (Auto) 22.0 % [place] % (Auto) 7.1 % Eos % (Auto) 1.3 % Baso % (Auto) 0.2 % Neut # (Auto) 5.90 (1.4-6.5) K/uL Lymph # (Auto) 1.88 (1.2-3.4) K/uL [place] # (Auto) 0.61 H (0.11-0.59) K/uL Eos # (Auto) 0.11 (0-0.5) K/uL Baso # (Auto) 0.02 (0-0.2) K/uL Immature Gran # (Auto) 0.03 H (0.00-0.02) K/uL Sodium 134 L (136-145) mmol/L Potassium 4.4 (3.5-5.1) mmol/L Chloride 100 (98-107) mmol/L Carbon Dioxide 25 (21-32) mmol/L Anion Gap 9.0 (3-11) BUN 9 (7-18) mg/dl Creatinine 0.58 L (0.6-1.2) mg/dl Est Cr Clr Drug Dosing 42.1 ml/min Est GFR ( Amer) 98.8 ml/min Est GFR (Non-Af Amer) 85.2 ml/min BUN/Creatinine Ratio 15.8 (10-20) Glucose 135 H (70-99) mg/dl Calcium 9.2 (8.5-10.1) mg/dl Total Bilirubin 0.4 (0.2-1) mg/dl AST 16 (15-37) U/L ALT 22 (12-78) U/L Alkaline Phosphatase 48 (45-117) U/L Troponin I < 0.015 (0-0.045) ng/ml Total Protein 7.3 (6.4-8.2) gm/dl Albumin 3.7 (3.4-5.0) gm/dl Globulin 3.6 (2.5-4.0) gm/dl Albumin/Globulin Ratio 1.0 (0.9-2) Lipase 143 (73-393) U/L COVID-19 Eval Order Covid19 at [facility] SARS-CoV-2 (PCR) (Negative) 03/21/21 Range/Units 10:24 WBC (4.8-10.8) K/uL RBC (4.2-5.4) M/uL Hgb (12.0-16.0) g/dL Hct (37-47) % MCV (80-100) fL MCH (25-34) pg MCHC (32-36) g/dL RDW Std Deviation (36.4-46.3) fL RDW Coeff of Maddie (11.5-14.5) % Plt Count (130-400) K/uL MPV (7.4-10.4) fL Immature Gran % (Auto) % Neut % (Auto) % Lymph % (Auto) % [place] % (Auto) % Eos % (Auto) % Baso % (Auto) % Neut # (Auto) (1.4-6.5) K/uL Lymph # (Auto) (1.2-3.4) K/uL [place] # (Auto) (0.11-0.59) K/uL Eos # (Auto) (0-0.5) K/uL Baso # (Auto) (0-0.2) K/uL Immature Gran # (Auto) (0.00-0.02) K/uL Sodium (136-145) mmol/L Potassium (3.5-5.1) mmol/L Chloride (98-107) mmol/L Carbon Dioxide (21-32) mmol/L Anion Gap (3-11) BUN (7-18) mg/dl Creatinine (0.6-1.2) mg/dl Est Cr Clr Drug Dosing ml/min Est GFR ( Amer) ml/min Est GFR (Non-Af Amer) ml/min BUN/Creatinine Ratio (10-20) Glucose (70-99) mg/dl Calcium (8.5-10.1) mg/dl Total Bilirubin (0.2-1) mg/dl AST (15-37) U/L ALT (12-78) U/L Alkaline Phosphatase (45-117) U/L Troponin I (0-0.045) ng/ml Total Protein (6.4-8.2) gm/dl Albumin (3.4-5.0) gm/dl Globulin (2.5-4.0) gm/dl Albumin/Globulin Ratio (0.9-2) Lipase (73-393) U/L COVID-19 Eval Order SARS-CoV-2 (PCR) NEGATIVE (Negative) Administered Medications Morphine Sulfate (Morphine Sulfate 4 Mg/Ml 1 Ml Carp\Vial) 4 mg IV Q3H PRN PRN Reason: Pain (6,7,8,9,10) Stop: 04/04/21 12:22 Last Admin: 03/21/21 13:20 Dose: 4 mg Documented by: [id number] Discontinued Medications Fentanyl Citrate (Fentanyl Citrate 100 Mcg/2 Ml Vial) 50 mcg IV Q15M PRN PRN Reason: Pain Stop: 04/04/21 09:20 Last Admin: 03/21/21 09:39 Dose: 50 mcg Documented by: [id number] Sodium Chloride (Nss) 500 mls @ 999 mls/hr IV .Q31M STA Stop: 03/21/21 09:51 Last Infusion: 03/21/21 11:14 Dose: 0 mls/hr Documented by: [id number] Admin: 03/21/21 09:39 Dose: 999 mls/hr Documented by: [id number] Ondansetron HCl (Ondansetron Inj 2 Mg/Ml 2 Ml Vial) 4 mg IV NOW STA Stop: 03/21/21 09:22 Last Admin: 03/21/21 09:39 Dose: 4 mg Documented by: [id number] Imaging Data Radiologist's Impression: Chest X-Ray 03/21/21 09:21 XR chest 1V portable HISTORY: fall COMPARISON: Chest 09/27/2020. FINDINGS: No focal lung consolidations to suggest pneumonia. No evidence for pulmonary edema. The heart is borderline enlarged. This remains unchanged. No pleural effusions. No pneumothorax. Old, healed right-sided rib fractures. Advanced degenerative changes again noted within the shoulders. IMPRESSION: Chronic changes as described above. No acute process within the chest. ACT 112: Negative or not required by law. Electronically signed by: Cheng Diaz M.D. 03/21/2021 9:57 AM Hip/Pelvis X-Ray 03/21/21 09:21 XR hip LT 2V w pelvis CLINICAL HISTORY: fall. Left hip pain. COMPARISON STUDY: Pelvis and left hip 08/19/2019. FINDINGS: Mild displaced fracture at the base of the left greater trochanter. This does not clearly extend to the lesser trochanter. No fractures within the pelvis or right hip. No dislocation. The sacrum appears intact. IMPRESSION: Mildly displaced fracture at the base of the left greater trochanter. This does not clearly extend to the lesser trochanter. However, dedicated CT of the left hip is recommended to exclude the possibility of an intertrochanteric fracture. ACT 112: Negative or not required by law. Electronically signed by: Cheng Diaz M.D. 03/21/2021 9:[address] 03/21/21 09:43 CT OF THE CERVICAL SPINE WITHOUT CONTRAST CLINICAL HISTORY: fall COMPARISON STUDY: MRI of the cervical spine July 24, 2020. CT of the cervical spine September 27, 2020. TECHNIQUE: Helical axial images of the cervical spine were obtained without IV contrast. Sagittal and coronal reconstructions were viewed. Automated exposure control was utilized for the study. A dose lowering technique was utilized adhering to the principles of ALARA. FINDINGS: There is reversal of the normal cervical lordosis. Vertebral body heights are maintained. No acute cervical spine fracture or subluxation is present. There is no prevertebral edema. Facet joints are intact. Severe multilevel degenerative disc disease and facet arthrosis is again noted. IMPRESSION: 1. No acute cervical spine fracture or subluxation. 2. Severe multilevel degenerative changes within the cervical spine. ACT 112: Negative or not required by law. Electronically signed by: Robert Amaral M.D. 03/21/2021 11:[address] 03/21/21 09:43 CT head/brain wo con CLINICAL HISTORY: fall COMPARISON STUDY: September 24, 2020 TECHNIQUE: Axial CT of the brain is performed from the vertex to the skull base. IV contrast was not administered for this examination. A dose lowering technique was utilized adhering to the principles of ALARA. CT DOSE: 638.56 mGycm FINDINGS: No intra or extra-axial mass lesions are visualized. There is no CT evidence of acute cortical infarction. There is no evidence of midline shift. There is no acute hemorrhage. No acute depressed calvarial fractures are visualized. There are patchy white matter hypodensities likely on a small vessel basis. Redemonstration of atrophic changes of brain parenchyma associated with mild ex vacuo dilatation of ventricles. There is no evidence of acute sinusitis Vascular calcifications are again demonstrated. IMPRESSION: No acute intracranial hemorrhage, no midline shift or space occupying lesions. No acute depressed skull fractures are seen. ACT 112: Negative or not required by law. The above report was generated using voice recognition software. It may contain grammatical, syntax or spelling errors. Electronically signed by: Krys Sparks DO 03/21/2021 10:[address] 03/21/21 10:[address] DOSE: HISTORY: Left hip pain. Fracture. fall TECHNIQUE: Multiaxial CT images of the left were performed and reformatted in the sagittal and coronal plane without the use of contrast. A dose lowering technique was utilized adhering to the principles of ALARA. COMPARISON: Left hip radiograph 03/21/2021. FINDINGS: There is again noted a slightly comminuted fracture at the greater trochanter of the left proximal femur. This extends into the posterior/superior neck base. This does not extend to the lesser trochanter. No dislocation. The visualized pelvic bones are intact. Sclerotic focus within the left ischial tuberosity remains stable and favors a bone island. Subcutaneous fat stranding within the lateral left hip consistent with a small contusion. No hip effusion. IMPRESSION: There is again noted a slightly comminuted fracture at the greater trochanter of the left proximal femur. This extends into the posterior/superior neck base. This does not extend to the lesser trochanter. ACT 112: Negative or not required by law. Electronically signed by: Cheng Diaz M.D. 03/21/2021 10:51 AM Discharge Plan Visit Data Chief Complaint: Fall ED Provider: Saul Ryder Discharge Problem: Subcapital fracture of left hip, Closed fracture of greater trochanter of left femur Patient Disposition: Admitted As Inpatient Condition: Good Discharge Instructions Interventions: ED Discharge Assessment Last Done: 03/21/21 12:04 Discharge Problem: Subcapital fracture of left hip Qualifiers: Encounter type: initial encounter Fracture type: closed Qualified Code(s): S72.012A - Unspecified intracapsular fracture of left femur, initial encounter for closed fracture Closed fracture of greater trochanter of left femur Qualifiers: Encounter type: initial encounter Fracture alignment: displaced Qualified Code(s): S72.112A - Displaced fracture of greater trochanter of left femur, initial encounter for closed fracture
[2021-03-21 09:41] LABS: Basophils # (auto) 0.02 K/uL (0-0.2); Basophils % (auto) 0.2 %; Eosinophils # (auto) 0.11 K/uL (0-0.5); Eosinophils % (auto) 1.3 %; Hematocrit (blood only) 35.9 % (37-47); Hemoglobin 12.1 g/dL (12.0-16.0); Immature Granulocytes # (auto) 0.03 K/uL (0.00-0.02); Immature Granulocytes % (auto) 0.4 %; Lymphocytes # (auto) 1.88 K/uL (1.2-3.4); Mean Corpuscular Hemoglobin 28.3 pg (25-34); Mean Corpuscular Hgb Conc 33.7 g/dL (32-36); Mean Corpuscular Volume 84.1 fL (80-100); Mean Platelet Volume 8.8 fL (7.4-10.4); Monocytes # (auto) 0.61 K/uL (0.11-0.59); Monocytes % (auto) 7.1 %; Platelet Count 351 K/uL (130-400); RDW Standard Deviation 42.8 fL (36.4-46.3); Red Blood Count 4.27 M/uL (4.2-5.4); White Blood Count 8.55 K/uL (4.8-10.8)
--- NOTE | 2021-03-21 09:55 | XRay Report ---
XR hip LT 2V w pelvis CLINICAL HISTORY: fall. Left hip pain. COMPARISON STUDY: Pelvis and left hip 08/19/2019. FINDINGS: Mild displaced fracture at the base of the left greater trochanter. This does not clearly e xtend to the lesser trochanter. No fractures within the pelvis or right hip. No dislocation. The sacr um appears intact. IMPRESSION: Mildly displaced fracture at the base of the left greater trochanter. This does not anushka rly extend to the lesser trochanter. However, dedicated CT of the left hip is recommended to exclude the possibility of an intertrochanteric fracture. ACT 112: Negative or not required by law. Electronically signed by: Cheng Diaz M.D. 03/21/2021 9:54 AM
--- NOTE | 2021-03-21 09:59 | XRay Report ---
XR chest 1V portable HISTORY: fall COMPARISON: Chest 09/27/2020. FINDINGS: No focal lung consolidations to suggest pneumonia. No evidence for pulmonary edema. The hea rt is borderline enlarged. This remains unchanged. No pleural effusions. No pneumothorax. Old, healed right-sided rib fractures. Advanced degenerative changes again noted within the shoulders. IMPRESSION: Chronic changes as described above. No acute process within the chest. ACT 112: Negative or not required by law. Electronically signed by: Cheng Diaz M.D. 03/21/2021 9:57 AM
[2021-03-21 10:01] LABS: Alanine Aminotransferase 22 U/L (12-78); Aspartate Aminotransferase 16 U/L (15-37); BUN Creatinine Ratio 15.8 (10-20); Blood Urea Nitrogen 9 mg/dl (7-18); Calcium 9.2 mg/dl (8.5-10.1); Carbon Dioxide 25 mmol/L (21-32); Chloride 100 mmol/L (98-107); Creatinine Clr Calc Pharmacy 42.1 ml/min; Est GFR (African American) 98.8 ml/min; Est GFR (Non-African American) 85.2 ml/min; Glucose 135 mg/dl (70-99); Potassium 4.4 mmol/L (3.5-5.1); Sodium 134 mmol/L (136-145)
[2021-03-21 10:02] LABS: Albumin Level 3.7 gm/dl (3.4-5.0); Lipase 143 U/L (73-393)
[2021-03-21 10:06] LABS: Alkaline Phosphatase 48 U/L (45-117); Bilirubin,Total 0.4 mg/dl (0.2-1); Globulin 3.6 gm/dl (2.5-4.0); Total Protein 7.3 gm/dl (6.4-8.2); Troponin I < 0.015 ng/ml (0-0.045)
--- NOTE | 2021-03-21 10:18 | CT Scan Report ---
CT head/brain wo con CLINICAL HISTORY: fall COMPARISON STUDY: September 24, 2020 TECHNIQUE: Axial CT of the brain is performed from the vertex to the skull base. IV contrast was not administered for this examination. A dose lowering technique was utilized adhering to the principles of ALARA. CT DOSE: 638.56 mGycm FINDINGS: No intra or extra-axial mass lesions are visualized. There is no CT evidence of acute cortical infarc tion. There is no evidence of midline shift. There is no acute hemorrhage. No acute depressed calvar ial fractures are visualized. There are patchy white matter hypodensities likely on a small vessel basis. Redemonstration of atrophic changes of brain parenchyma associated with mild ex vacuo dilatation of v entricles. There is no evidence of acute sinusitis Vascular calcifications are again demonstrated. IMPRESSION: No acute intracranial hemorrhage, no midline shift or space occupying lesions. No acute depressed skull fractures are seen. ACT 112: Negative or not required by law. The above report was generated using voice recognition software. It may contain grammatical, syntax o r spelling errors. Electronically signed by: Krys Sparks DO 03/21/2021 10:17 AM
--- NOTE | 2021-03-21 10:53 | CT Scan Report ---
LEFT HIP CT CT DOSE: HISTORY: Left hip pain. Fracture. fall TECHNIQUE: Multiaxial CT images of the left were performed and reformatted in the sagittal and bermeo l plane without the use of contrast. A dose lowering technique was utilized adhering to the principl es of KENNETH. COMPARISON: Left hip radiograph 03/21/2021. FINDINGS: There is again noted a slightly comminuted fracture at the greater trochanter of the left p roximal femur. This extends into the posterior/superior neck base. This does not extend to the lesser trochanter. No dislocation. The visualized pelvic bones are intact. Sclerotic focus within the left ischial tuberosity remains stable and favors a bone island. Subcutaneous fat stranding within the lat eral left hip consistent with a small contusion. No hip effusion. IMPRESSION: There is again noted a slightly comminuted fracture at the greater trochanter of the left proximal fe mur. This extends into the posterior/superior neck base. This does not extend to the lesser trochante r. ACT 112: Negative or not required by law. Electronically signed by: Cheng Diaz M.D. 03/21/2021 10:51 AM
--- NOTE | 2021-03-21 11:03 | CT Scan Report ---
CT OF THE CERVICAL SPINE WITHOUT CONTRAST CLINICAL HISTORY: fall COMPARISON STUDY: MRI of the cervical spine July 24, 2020. CT of the cervical spine September 27, 2020. TECHNIQUE: Helical axial images of the cervical spine were obtained without IV contrast. Sagittal a nd coronal reconstructions were viewed. Automated exposure control was utilized for the study. A do se lowering technique was utilized adhering to the principles of ALARA. FINDINGS: There is reversal of the normal cervical lordosis. Vertebral body heights are maintained. N o acute cervical spine fracture or subluxation is present. There is no prevertebral edema. Facet join ts are intact. Severe multilevel degenerative disc disease and facet arthrosis is again noted. IMPRESSION: 1. No acute cervical spine fracture or subluxation. 2. Severe multilevel degenerative changes within the cervical spine. ACT 112: Negative or not required by law. Electronically signed by: Robert Amaral M.D. 03/21/2021 11:02 AM
--- NOTE | 2021-03-21 11:23 | History & Physical Report ---
Date of Service March 21, 2021 Assessment & Plan (1) Closed comminuted fracture of left hip: -Admit to [facility] with telemetry -Geriatric hip order set completed -Patient/son is requesting Dr. Barnett if he is available for her surgery, consult Ortho -Dr. Meraz professional volleyball player today - son Dr. Kong (neurosurgery physician), would like to speak with Dr. Meraz and develop a plan for surgery since his preferred surgeon is unavailable until Friday secondary to conference. Plan discussed with the family and patient, would avoid delayed surgery if possible, son is aware/understands. -Order preop clindamycin due to PCN and cephalosporin allergy -Insert Grimm -PT/OT -Imaging reviewed as above -Allow diet today, n.p.o. after midnight (2) Chronic hyponatremia: -History of such, follows with Dr. Fried with nephrology as an outpatient continue sodium bicarb tablets -Sodium = 134 on admission, at baseline (3) HTN (hypertension): -Continue amlodipine 5 mg daily (4) Dyslipidemia: - Not on statin therapy (5) Osteoarthritis of knees, bilateral: - pt reports "bone on bone" and that she ultimately needs surgery but has not yet done so. (6) Vitamin B12 deficiency: - Cont supplementation (7) Dementia: - hx of such, caregiver lives with her (8) Type 2 diabetes mellitus: - Plan to hold metformin, continue ISS with accuchecks achs for now - Last A1C = 6.8 from Aug 2020, will recheck with am labs (9) Osteoporosis: - Hx of such, cont Vit D and calcium supplementation (10) Esophageal reflux: - Diet controlled (11) Dementia: - Pt will require reorientation during stay. 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 - Fall precautions, place guardrails up on bed - Reorientation (12) Hypothyroid: - Continue levothyroxine 25 mcg daily DVT ppx: teds, scds CODE: Full code - discussed with the patient and her son, Dr. Kong. Pt does not want to be maintained on ventilator. Attempt for code is ok per the son. Dispo: From home, remain in the hospital for 1-2 days. History of Present Illness Primary Care Provider: Tabitha Hall MD This is an 81-year-old female with PMHx of HTN, HLD, hypothyroidism, DM type II, chronic hyponatremia, dementia, GERD, spondylolisthesis, osteoporosis who presents after a fall sustaining a left comminuted femoral fracture. This occurred while she was standing up and doing her morning exercises. Patient denies any lightheadedness, dizziness and that she lost her balance and fell. She reports that her pain is fairly well controlled presently and that she needs to pee, and is asking to get up several times during my visit. Pt reports that she took her morning medications today. She has a caregiver at the bedside who supports the history. Patient has a son who is a neurosurgeon and is listed as her power of corporate associate attorney and makes all medical decisions for her. Allergies Allergy/AdvReac Type Severity Reaction Status Date / Time salicylates Allergy Severe HIVES Verified 03/21/21 11:50 monosodium glutamate Allergy Mild Verified 03/21/21 11:50 Penicillins Allergy Mild Verified 03/21/21 11:50 Sulfa (Sulfonamide Allergy Mild Verified 03/21/21 11:50 Antibiotics) alendronate sodium Allergy Unknown UNKNOWN Verified 03/21/21 11:50 Home Medications Medication Instructions Recorded Confirmed Type ascorbic acid (vitamin C) 500 mg 500 mg PO DAILY tab 06/23/19 03/21/21 History tablet cholecalciferol (vitamin D3) 50 2,000 units PO DAILY tab 06/23/19 03/21/21 History mcg (2,000 unit) tablet travoprost 0.004 % eye drops 1 drops OP QPM #3 ml 06/23/19 03/21/21 History cyanocobalamin (vitamin B-12) 100 mcg IM .COMPLEX #1 ea 06/29/20 03/21/21 Rx 1,000 mcg/mL injection kit diclofenac sodium 1 ea TOPICAL QID 08/07/20 03/21/21 History amlodipine [Norvasc] 5 mg PO QAM #30 tab 10/02/20 03/21/21 Rx sennosides-docusate sodium 1 tab PO BID PRN #60 tab 10/02/20 03/21/21 Rx [Senokot-S] sodium chloride 1,000 mg PO BID 10/02/20 03/21/21 History levothyroxine 25 mcg tablet 25 mcg PO DAILY #90 tab 11/30/20 03/21/21 Rx calcium carbonate-vitamin D3 1 tab PO DAILY 03/21/21 03/21/21 History [Calcium + D] coenzyme Q10 [CoQ-10] 100 mg PO DAILY 03/21/21 03/21/21 History duloxetine 60 mg PO HS 03/21/21 03/21/21 History metformin 1,000 mg PO BID 03/21/21 03/21/21 History bjywkeguypjp-Hc-iurn-minerals 1 tab PO DAILY 03/21/21 03/21/21 History [Women's Daily Multivitamin] Past Med/Surg History Medical History Acute hyponatremia Cervical radiculopathy Cervical spinal stenosis Colon cancer screening Disc degeneration, lumbosacral Dyslipidemia Esophageal reflux Glaucoma HTN (hypertension) Hypochloremia Hypothyroid Numbness of left foot Osteoarthritis of knees, bilateral Osteoporosis Signs and symptoms involving cognition Skin abnormality Spondylolisthesis, acquired Thrombocytosis Type 2 diabetes mellitus with albuminuria Unsteady gait Surgical History History of tubal ligation Family History Sister Breast cancer Father Myocardial infarction Other No pertinent family history Denies family history of Colon cancer Ovarian cancer Prostate cancer Social History Smoking Status: Never smoker Hx Alcohol Use: No Hx Substance Use: No Preferred Language: Guyanese Communication Ability: Effective Visual Impairment: No Limitations Hearing Ability: Normal Taxi Cab 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: No Beliefs That Will Affect Care: None marital status: Current Living Situation: Spouse and Other Current Living Situation Comment: HOME HEALTH AIDE Other Information That Helps Us Care for You: No Feels Safe at Home: Yes Safety Concerns: Feels Safe At This Time Seatbelt Use: always Assistive Devices: None Review of Systems Review of Systems: Constitutional: No fever, sweats or chills Eyes: No diplopia, no worsening or blurred vision ENT: normal hearing, no trouble swallowing Respiratory: No cough, sputum, dyspnea at rest or on exertion Cardiovascular: No chest pain, tightness or palpitations Abdomen: No pain, nausea, vomiting, diarrhea or constipation Musculoskeletal: Mild left hip pain radiating down to her knee and up into her lower left back. Otherwise, no joint pain, calf pain, swelling Neurologic: No weakness, numbness/tingling, or balance problems Psychiatric: No anxiety or depression Skin: No rash or itch Physical Exam Physical Exam: General: awake, alert, no apparent distress, + thin Head: Normocephalic, atraumatic ENT: PERRL, EOMI, no pharyngeal exudate, mucous membranes moist Chest: Clear to auscultation, on room air, no adventitious breath sounds Cardiac: Regular rate and rhythm, no murmur, no JVD, normal peripheral pulses, good capillary refill Abdominal: NABS x 4 quadrants, soft, nondistended, nontender to palpation, no rebound or guarding Extremities: Normal inspection, no peripheral edema or erythema, calfs nontender to palpation Psych: Normal mood and affect Neuro: AAO x 3, strength intact bilaterally in upper extremities and rated 5/5, strength in Right hip is 5/5, not assessed in the left. Otherwise, no motor deficits, speech is clear, no peripheral sensory deficits Results & Data Results & Data ([facility]) Vital Signs (Past 12 Hours) Vital Signs Temp Pulse Resp BP Pulse Ox 03/21/21 09:21 36.1 C L 89 20 144/73 H 98 Diagnostic Findings Chest X-Ray 03/21/21 09:21 XR chest 1V portable HISTORY: fall COMPARISON: Chest 09/27/2020. FINDINGS: No focal lung consolidations to suggest pneumonia. No evidence for pulmonary edema. The heart is borderline enlarged. This remains unchanged. No pleural effusions. No pneumothorax. Old, healed right-sided rib fractures. Advanced degenerative changes again noted within the shoulders. IMPRESSION: Chronic changes as described above. No acute process within the chest. ACT 112: Negative or not required by law. Electronically signed by: Cheng Diaz M.D. 03/21/2021 9:57 AM Hip/Pelvis X-Ray 03/21/21 09:21 XR hip LT 2V w pelvis CLINICAL HISTORY: fall. Left hip pain. COMPARISON STUDY: Pelvis and left hip 08/19/2019. FINDINGS: Mild displaced fracture at the base of the left greater trochanter. This does not clearly extend to the lesser trochanter. No fractures within the pelvis or right hip. No dislocation. The sacrum appears intact. IMPRESSION: Mildly displaced fracture at the base of the left greater trochanter. This does not clearly extend to the lesser trochanter. However, dedicated CT of the left hip is recommended to exclude the possibility of an intertrochanteric fracture. ACT 112: Negative or not required by law. Electronically signed by: Cheng Diaz M.D. 03/21/2021 9:[address] 03/21/21 09:43 CT OF THE CERVICAL SPINE WITHOUT CONTRAST CLINICAL HISTORY: fall COMPARISON STUDY: MRI of the cervical spine July 24, 2020. CT of the cervical spine September 27, 2020. TECHNIQUE: Helical axial images of the cervical spine were obtained without IV contrast. Sagittal and coronal reconstructions were viewed. Automated exposure control was utilized for the study. A dose lowering technique was utilized adhering to the principles of ALARA. FINDINGS: There is reversal of the normal cervical lordosis. Vertebral body heights are maintained. No acute cervical spine fracture or subluxation is present. There is no prevertebral edema. Facet joints are intact. Severe multilevel degenerative disc disease and facet arthrosis is again noted. IMPRESSION: 1. No acute cervical spine fracture or subluxation. 2. Severe multilevel degenerative changes within the cervical spine. ACT 112: Negative or not required by law. Electronically signed by: Robert Amarla M.D. 03/21/2021 11:[address] 03/21/21 09:43 CT head/brain wo con CLINICAL HISTORY: fall COMPARISON STUDY: September 24, 2020 TECHNIQUE: Axial CT of the brain is performed from the vertex to the skull base. IV contrast was not administered for this examination. A dose lowering technique was utilized adhering to the principles of ALARA. CT DOSE: 638.56 mGycm FINDINGS: No intra or extra-axial mass lesions are visualized. There is no CT evidence of acute cortical infarction. There is no evidence of midline shift. There is no acute hemorrhage. No acute depressed calvarial fractures are visualized. There are patchy white matter hypodensities likely on a small vessel basis. Redemonstration of atrophic changes of brain parenchyma associated with mild ex vacuo dilatation of ventricles. There is no evidence of acute sinusitis Vascular calcifications are again demonstrated. IMPRESSION: No acute intracranial hemorrhage, no midline shift or space occupying lesions. No acute depressed skull fractures are seen. ACT 112: Negative or not required by law. The above report was generated using voice recognition software. It may contain grammatical, syntax or spelling errors. Electronically signed by: Krys Sparks DO 03/21/2021 10:[address] 03/21/21 10:[address] DOSE: HISTORY: Left hip pain. Fracture. fall TECHNIQUE: Multiaxial CT images of the left were performed and reformatted in the sagittal and coronal plane without the use of contrast. A dose lowering technique was utilized adhering to the principles of ALARA. COMPARISON: Left hip radiograph 03/21/2021. FINDINGS: There is again noted a slightly comminuted fracture at the greater trochanter of the left proximal femur. This extends into the posterior/superior neck base. This does not extend to the lesser trochanter. No dislocation. The visualized pelvic bones are intact. Sclerotic focus within the left ischial tuberosity remains stable and favors a bone island. Subcutaneous fat stranding within the lateral left hip consistent with a small contusion. No hip effusion. IMPRESSION: There is again noted a slightly comminuted fracture at the greater trochanter of the left proximal femur. This extends into the posterior/superior neck base. This does not extend to the lesser trochanter. ACT 112: Negative or not required by law. Electronically signed by: Cheng Diaz M.D. 03/21/2021 10:51 AM ECG Additional Comments: 21-MAR-2021 09:30:34 [facility]-EDSTAT ROUTINE RETRIEVAL Normal sinus rhythm Low voltage QRS Borderline ECG When compared with ECG of 27-SEP-2020 11:47, No significant change was found 25mm/s 10mm/mV 150Hz 9.0.9 12SL 241 HD KIRK: 12 Unconfirmed Vent. rate 85 BPM AR interval 168 ms QRS duration 84 ms QT/QTc 390/464 ms Code Status & VTE Plan Code Status DNR/DNI Supervising Physician Co-Signing Physician Notes I saw this patient with the physician senior office support assistant sosa, I participated in the history, physical, review of systems, and physical exam. I reviewed the medications with the patient and the physician senior office support assistant sosa and helped reconcile the medications. I helped take a detailed family and social history as well. I formulated the assessment and plan personally with the physician senior office support assistant sosa and went over it with the patient. ROS-No Headache, No Visual Changes, No Nausea, No Vomiting, No Fever, No Chills, No Neck Pain or Stiffness, No Chest Pain, No Palpitations, No SOB, No HERNANDEZ, No Cough, No Sputum, No Wheezing, No Abdominal Pain, No Diarrhea, No Hematemesis, No Hemoptysis, No Unexpected Weight Loss, No Flank pain, No Melena, No Hematochezia, No Frequency, No Urgency, No Burning, No Hematuria, No Rashes, No Diaphoresis. Appetite is Normal Physical Exam Gen-AAO x 3, NAD, Afebrile Head-NCAT, EOMI, PERRLA, Anicteric Sclera, No Posterior Pharyngeal Erythema Neck-Supple, No JVD, No Thyromegaly, No Masses, No LAD, No Bruits Lungs-Clear to Auscultation Bilaterally, No Rales, No Rhonchi, No Wheezing, No Crepitus Chest-No S4, +S1, +S2, No S3, No Murmurs, No Rubs, No Gallops, No Ectopy Abdomen-Soft, Bowel Sounds Present, Non Tender, Non Distended, No Hepatomegaly, No Splenomegaly, No Palpable Masses, No Rebound, No Rigidity, No Guarding Musculoskeletal-No CVAT Extremities-No Cyanosis, No Clubbing, No Edema Nuero-Cranial Nerves II-XII grossly intact, Motor WNL, DTRs WNL, Strength WNL, Non Focal Psych-Normal Mood
[2021-03-21] MEDS ORDERED: DOCUSATE SODIUM/SENNA 50/8.6MG TAB PO PRN (12:09)
[2021-03-21] MEDS ORDERED: NON-FORMULARY MEDICATION (Cyanocobalamin (Vitamin B-12) 1,000 mcg/mL kit) IM SCH (12:15)
[2021-03-21] MEDS ORDERED: ONDANSETRON INJ 2 MG/ML 2 ML VIAL IV PRN (12:23)
[2021-03-21] MEDS ORDERED: MAGNESIUM HYDROXIDE SUSP 30 ML UDC PO PRN (12:23)
[2021-03-21] MEDS ORDERED: GLUCOSE 10 TABS/TUBE PO PRN (12:23)
[2021-03-21] MEDS ORDERED: MoRPHine SULFATE 4 MG/ML 1 ML CARP\\VIAL IV PRN (12:23)
[2021-03-21] MEDS ORDERED: NALOXONE HCL 0.4 MG/1 ML VIAL/CARP IV PRN (12:23)
[2021-03-21] MEDS ORDERED: DEXTROSE 50% 50 ML SYRINGE IV PRN (12:23)
[2021-03-21] MEDS ORDERED: GLUCOSE 40% GEL 15 GM TUBE PO PRN (12:23)
[2021-03-21] MEDS ORDERED: CARBOHYDRATES FOR HYPOGLYCEMIA PO PRN (12:23)
[2021-03-21] MEDS ORDERED: bisacodyL 10 MG SUPP PR PRN (12:23)
[2021-03-21] MEDS ORDERED: MoRPHine SULFATE 2 MG/ML CARP IV PRN (12:23)
[2021-03-21] MEDS ORDERED: GLUCAGON FOR INJ 1 MG VIAL SQ PRN (12:23)
[2021-03-21] MEDS: DICLOFENAC SOD 1% GEL 100 GM TUBE EXT SCH ×3 (16:28→21:29)
[2021-03-21] MEDS: INSULIN ASPART 100 UNITS/ML 3 ML PEN SC SCH ×3 (16:30→21:32)
[2021-03-21] MEDS: ACETAMINOPHEN 500 MG TAB PO SCH ×2 (16:31→21:29)
--- NOTE | 2021-03-21 17:58 | Electrocardiogram Report ---
Test Reason : Blood Pressure : / mmHG Vent. Rate : 085 BPM Atrial Rate : 085 BPM P-R Int : 168 ms QRS Dur : 084 ms QT Int : 390 ms P-R-T Axes : 061 002 049 degrees QTc Int : 464 ms Normal sinus rhythm Low voltage QRS Incomplete right bundle branch block Borderline ECG When compared with ECG of 27-SEP-2020 11:47, No significant change was found Confirmed by Jose Ram ([id number]) on 03/21/2021 5:57:49 PM Referred By: Confirmed By:Marques Ram
--- NOTE | 2021-03-21 18:20 | Orthopedic Consultation ---
Date of Service March 21, 2021 Assessment & Plan (1) Closed fracture of greater trochanter of left femur: Based on available studies, there is evidence of an isolated greater trochanteric fracture. There remains a concern for extension of the fracture into the femoral neck and intertrochanteric region based on the level of pain on exam. I would recommend magnetic resonance imaging (which is more sensitive) to evaluate for edema and cortical disruption in these critical regions to determin e absolute weightbearing status and need for surgery. An isolated greater trochanteric fracture may be treated without surgery, and if confirmed by MRI, I would recommend weightbearing as tolerated and working with PT/OT. She can have regular diet tonight. We will await the MR scan and for determination of final treatment recommendations. Recommend bedrest until the MRI is complete. She remains a relative risk for a VTE event. Agree with mechanical prophylaxis for now. We can wait for determination on need for surgery by MRI before chemoprophylaxis. If she is cleared from any peritrochanteric involvement by MRI and can ambulate well with PT/OT, mechanical prophylaxis should be sufficient. These recommendations have been discussed with her son who is the power of contracts attorney as well as the family at the bedside. History of Present Illness Reason for Consultation: Left hip fracture after fall Requesting Physician: . Attending Physician: Julien Pedroza DO 81-year-old female with PMHx of HTN, HLD, hypothyroidism, DM type II, chronic hyponatremia, dementia, GERD, spondylolisthesis, osteoporosis was admitted after sustaining a fall today. Emergency room evaluation demonstrated a greater trochanteric fracture. She was admitted to the hospitalist service and we were consulted for definitive management. Is a former patient of Dr. Barnett for knee arthritis. History was from her son at the bedside, at the bedside, and other son by phone who is a neurosurgeon and power of contracts attorney. The fall occurred at home while she was standing up and doing her morning exercises. Patient denies any lightheadedness, dizziness and that she lost her balance and fell. She denies previous significant hip pain requiring treatment. She denies any previous injuries or surgeries to that region. On evaluation, she has mild pain to the hip that is tolerable while laying still. She does have "cramping" like pain in her buttock, and thigh. She also states that some cramping in her foot occurs. She does report some knee pain. Any motion elicits more pain. She has not been ambulatory since the emergency room admission. 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 Her son is the power of contracts attorney to assist with medical decision-making given the early dementia. She does have some lumbar spondylolisthesis that has been treated nonoperatively, which increases her lumbar lordosis. Allergies Allergy/AdvReac Type Severity Reaction Status Date / Time salicylates Allergy Severe HIVES Verified 03/21/21 11:50 monosodium glutamate Allergy Mild Verified 03/21/21 11:50 Penicillins Allergy Mild Verified 03/21/21 11:50 Sulfa (Sulfonamide Allergy Mild Verified 03/21/21 11:50 Antibiotics) alendronate sodium Allergy Unknown UNKNOWN Verified 03/21/21 11:50 Home Medications Medication Instructions Recorded Confirmed Type ascorbic acid (vitamin C) 500 mg 500 mg PO DAILY tab 06/23/19 03/21/21 History tablet cholecalciferol (vitamin D3) 50 2,000 units PO DAILY tab 06/23/19 03/21/21 History mcg (2,000 unit) tablet travoprost 0.004 % eye drops 1 drops OP QPM #3 ml 06/23/19 03/21/21 History cyanocobalamin (vitamin B-12) 100 mcg IM .COMPLEX #1 ea 06/29/20 03/21/21 Rx 1,000 mcg/mL injection kit diclofenac sodium 1 ea TOPICAL QID 08/07/20 03/21/21 History amlodipine [Norvasc] 5 mg PO QAM #30 tab 10/02/20 03/21/21 Rx sennosides-docusate sodium 1 tab PO BID PRN #60 tab 10/02/20 03/21/21 Rx [Senokot-S] sodium chloride 1,000 mg PO BID 10/02/20 03/21/21 History levothyroxine 25 mcg tablet 25 mcg PO DAILY #90 tab 11/30/20 03/21/21 Rx calcium carbonate-vitamin D3 1 tab PO DAILY 03/21/21 03/21/21 History [Calcium + D] coenzyme Q10 [CoQ-10] 100 mg PO DAILY 03/21/21 03/21/21 History duloxetine 60 mg PO HS 03/21/21 03/21/21 History metformin 1,000 mg PO BID 03/21/21 03/21/21 History qrijqhqpezfi-Ck-ziut-minerals 1 tab PO DAILY 03/21/21 03/21/21 History [Women's Daily Multivitamin] Past Med/Surg History Medical History Acute hyponatremia Cervical radiculopathy Cervical spinal stenosis Colon cancer screening Disc degeneration, lumbosacral Dyslipidemia Esophageal reflux Glaucoma HTN (hypertension) Hypochloremia Hypothyroid Numbness of left foot Osteoarthritis of knees, bilateral Osteoporosis Signs and symptoms involving cognition Skin abnormality Spondylolisthesis, acquired Thrombocytosis Type 2 diabetes mellitus with albuminuria Unsteady gait Surgical History History of tubal ligation Family History Sister Breast cancer Father Myocardial infarction Other No pertinent family history Denies family history of Colon cancer Ovarian cancer Prostate cancer Social History Smoking Status: Never smoker Hx Alcohol Use: No Hx Substance Use: No Preferred Language: Citizen Of [place] Communication Ability: Effective Visual Impairment: No Limitations Hearing Ability: Normal Hides Soaker Required: No Beliefs That Will Affect Care: None marital status: Current Living Situation: Spouse and Other Current Living Situation Comment: HOME HEALTH AIDE Other Information That Helps Us Care for You: No Feels Safe at Home: Yes Safety Concerns: Feels Safe At This Time Seatbelt Use: always Assistive Devices: None Review of Systems All systems reviewed & are unremarkable except as noted in HPI & below. Physical Exam Right lower extremity: The right thigh and leg are without evidence of trauma. She is full active motion of the hip and knee and ankle. Left lower extremity: The left lower extremity has no evidence of trauma. She has discomfort in her buttock and groin with logroll. She can formulate a good quad set with no discomfort. Straight leg raise attempt for most discomfort. She has full active motion of her ankle. She is nontender about the knee. She does have focal tenderness about the greater trochanteric region and gluteal muscles. She is neurovascularly intact to her bilateral lower extremities. Constitutional well developed and well nourished; no acute distress and not intoxicated appearing ENMT external ear and nose normal, oropharynx normal Respiratory normal respiratory effort; no respiratory distress Cardiovascular Extremities: normal capillary refill; no edema Skin no rashes, warm and dry Psychiatric A+Ox3, euthymic affect Results & Data Results & Data Laboratory Results . H & H 03/21/21 Range/Units 09:27 Hgb 12.1 (12.0-16.0) g/dL Hct 35.9 L (37-47) % Diagnostic Findings X-rays of the hip and pelvis were reviewed. There is a mildly displaced fracture of the greater trochanter. There is no obvious extension to the femoral neck or intertrochanteric region. CT scan of the hip was reviewed as well as radiologist rotation. I agree that there is no evidence of the fracture extension. There is degree of osteoporosis which compromises the certainty of that evaluation. A CT is not as sensitive as MR for involvement of the femoral neck nor peritrochanteric region. Radiographs of the knee include AP and lateral views. These demonstrate end- stage osteoarthrosis with obliteration of the joint space. PG Care Time/CCT Total # of Minutes Spent Total Time Spent with Patient: Total time spent is greater than 50% in coordination of care (as documented) at patient's floor/unit and/or counseling patient: Coding Level of Care Code 67721 Inpt Consult Level 4 Diagnoses Closed fracture of greater trochanter of left femur S72.112A Encounter type: initial encounter Fracture alignment: displaced (1) Closed fracture of greater trochanter of left femur Encounter type: initial encounter Fracture alignment: displaced Qualified Code(s): S72.112A - Displaced fracture of greater trochanter of left femur, initial encounter for closed fracture
[2021-03-21] MEDS: oxyCODONE HCL IR 5 MG TAB (IMMEDIATE RELEASE) PO PRN (21:28)
[2021-03-21] MEDS: TRAVOPROST Z 0.004% OPH SOLN 2.5 ML BTL OP SCH (21:29)
[2021-03-21] MEDS: DULoxetine HCL 60 MG CAP PO SCH (22:36)
[2021-03-21] MEDS: DOCUSATE SODIUM/SENNA 50/8.6MG TAB PO SCH (22:36)
[2021-03-21] MEDS: SODIUM CHLORIDE 1 GM TABLET PO SCH (22:36)
[2021-03-22] MEDS ORDERED: CLINDAMYCIN 900 MG in DEXTROSE 5% 50 ML IV SCH (06:00)
[2021-03-22] MEDS: LEVOTHYROXINE SODIUM 25 MCG TABLET PO SCH (06:36)
[2021-03-22] MEDS: ACETAMINOPHEN 500 MG TAB PO SCH ×3 (06:36→21:38)
[2021-03-22 07:33] LABS: Hematocrit (blood only) 33.7 % (37-47); Hemoglobin 11.4 g/dL (12.0-16.0); Mean Corpuscular Hemoglobin 28.4 pg (25-34); Mean Corpuscular Hgb Conc 33.8 g/dL (32-36); Mean Corpuscular Volume 83.8 fL (80-100); Mean Platelet Volume 8.7 fL (7.4-10.4); Platelet Count 349 K/uL (130-400); RDW Coefficient of Variation 14.1 % (11.5-14.5); RDW Standard Deviation 43.5 fL (36.4-46.3); Red Blood Count 4.02 M/uL (4.2-5.4); White Blood Count 9.57 K/uL (4.8-10.8)
--- NOTE | 2021-03-22 07:37 | Orthopedic Progress Note ---
Date of Service March 22, 2021 Assessment & Plan (1) Closed fracture of greater trochanter of left femur: MRI reviewed - isolated greater trochanteric fracture. Discussed w POA. Recommend PT/OT - may be WBAT with walker, assist as needed. Continue pain control and advance ambulation with PT/OT. Disposition per performance with PT/OT. Recommend follow-up for repeat radiographs in 1 to 2 weeks in our orthopedic clinic with Dr. Barnett or myself. Subjective Discussed the MRI findings and my interpretation with the power of family law attorney and the patient this morning. She reports her pain is tolerable and she is grateful that she may not necess arily need surgery. She is agreeable to follow-up. Review of Systems All systems reviewed & are unremarkable except as noted in HPI & below. Physical Exam Left lower extremity: Exam is unchanged. No evidence of ecchymosis below her lateral hip. She is irritability with logroll, as expected. Constitutional WD/WN, vitals as above no acute distress and not intoxicated appearing Respiratory normal respiratory effort; no labored breathing Cardiovascular Extremities: normal capillary refill Results & Data Results & Data Laboratory Results . Diagnostic Findings MRI images reviewed as well as her stat interpretation. These images show an avulsion of the greater trochanteric region. There is significant fluid development and hematoma about it. The calcar is intact. The femoral neck is intact. PG Care Time/CCT Total # of Minutes Spent Total Time Spent with Patient: Total time spent is greater than 50% in coordin ation of care (as documented) at patient's floor/unit and/or counseling patient: Coding Level of Care Code 13822 Subseq Hosp Care Lvl 3 Diagnoses Closed fracture of greater trochanter of left femur S72.112A Encounter type: initial encounter Fracture alignment: displaced (1) Closed fracture of greater trochanter of left femur Encounter type: initial encounter Fracture alignment: displaced Qualified Code(s): S72.112A - Displaced fracture of greater trochanter of left femur, initial encounter for closed fracture
--- NOTE | 2021-03-22 07:43 | Magnetic Resonance Report ---
MR hip LT wo con HISTORY: More Sensitive fx/edema in femoral neck/IT region TECHNIQUE: Multiplanar multisequence MRI of the pelvis and left hip were performed without contrast a ccording to standard departmental protocol. COMPARISON STUDY: Left hip CT 03/21/2021. FINDINGS: Radiotracer in the slightly comminuted fractures within the greater trochanter. There is a subtle fracture line extends to the lesser trochanter. Therefore, this is consistent with a nondispla tri intertrochanteric fracture the proximal left femur. No dislocation. Soft tissue edema surrounding the left hip most pronounced at the obturator externus muscle consistent with a muscular strain. The re is also partial tear/strain of the gluteus medius musculotendinous junction. A Grimm catheter is i n place. No fractures identified within the pelvis or right hip. IMPRESSION: 1. Nondisplaced intertrochanteric fracture involving the left proximal femur. Orthopedic consultation recommended. 2. Muscular strain/partial tear at the musculotendinous junction of the left gluteus medius and a mus cular strain of the left obturator externus.. 3. These findings were called/faxed to the referring physician following dictation. ACT 112: Negative or not required by law. Electronically signed by: Cheng Diaz M.D. 03/22/2021 7:42 AM
[2021-03-22] MEDS: INSULIN ASPART 100 UNITS/ML 3 ML PEN SC SCH ×5 (07:44→21:20)
[2021-03-22 07:48] LABS: Albumin Level 3.2 gm/dl (3.4-5.0); BUN Creatinine Ratio 15.9 (10-20); Calcium 8.4 mg/dl (8.5-10.1); Creatinine Clr Calc Pharmacy 40.2 ml/min; Est GFR (African American) 97.2 ml/min; Est GFR (Non-African American) 83.8 ml/min; Potassium 4.1 mmol/L (3.5-5.1)
[2021-03-22 07:51] LABS: Bilirubin,Total 0.5 mg/dl (0.2-1); Globulin 3.4 gm/dl (2.5-4.0); Total Protein 6.6 gm/dl (6.4-8.2)
[2021-03-22] MEDS ORDERED: NON-FORMULARY MEDICATION (Coenzyme Q10 [Coq-10] 100 mg Capsule) PO SCH (09:00)
[2021-03-22] MEDS: oxyCODONE HCL IR 5 MG TAB (IMMEDIATE RELEASE) PO PRN (10:00)
[2021-03-22] MEDS: amLODIPine BESYLATE 5 MG TAB PO SCH (10:02)
[2021-03-22] MEDS: ASCORBIC ACID 500 MG TAB PO SCH (10:02)
[2021-03-22] MEDS: SODIUM CHLORIDE 1 GM TABLET PO SCH ×3 (10:03→21:39)
[2021-03-22] MEDS: DICLOFENAC SOD 1% GEL 100 GM TUBE EXT SCH ×4 (10:03→21:39)
[2021-03-22] MEDS: CALCIUM 600MG + VIT D 400 IU TAB PO SCH (10:04)
[2021-03-22] MEDS: CHOLECALCIFEROL 1,000 UNITS 25 MCG TAB PO SCH (10:04)
[2021-03-22] MEDS: CEROVITE ADV FORMULA TAB PO SCH (10:05)
--- NOTE | 2021-03-22 15:25 | Hospitalist Progress Note ---
Date of Service March 22, 2021 Assessment & Plan (1) Closed comminuted fracture of left hip: Nondisplaced intertrochanteric fracture of the left proximal femur -Hip MRI: Nondisplaced intertrochanteric fracture involving the left proximal femur. Orthopedic consultation recommended. Muscular strain/partial tear at the musculotendinous junction of the left gluteus medius and a muscular strain of the left obturator externus.. -Conservative management as per Ortho -Appreciate orthopedics input Pain control PT OT Fall precautions (2) Chronic hyponatremia: Sodium: 134>136 Follows with Continue sodium chloride tablets Monitor sodium levels (3) HTN (hypertension): Continue amlodipine (4) Dyslipidemia: Not on statin therapy (5) Osteoarthritis of knees, bilateral: Continue home supplements (6) Vitamin B12 deficiency: Continue Vit B 12 supplement (7) Dementia: No acute issues (8) Type 2 diabetes mellitus: Hold Metformin Continue insulin therapy Monitor blood glucose levels (9) Osteoporosis: Continue Vit D and calcium supplementation (10) Esophageal reflux: Diet controlled (11) Hypothyroid: Continue levothyroxine DVT px: SCDs Lovenox SQ CODE STATUS: Full code Disposition May need rehab placement Admission and Anticipated Discharge Date Admission Date: March 21, 2021 Subjective Patient is seen and examined at bedside States having left hip pain with movement especially Otherwise feels well Evaluated by physical therapy earlier today Denies chest pain, shortness of breath, dizziness, nausea, abdominal pain Offers no other complaints Review of Systems Review of Systems: All systems reviewed & are unremarkable except as noted in HPI & below Physical Exam Physical Exam: Physical Exam: Vitals signs as noted above General Appearance:Thin, Frail, no apparent distress Head: normocephalic, Atraumatic Eyes: normal inspection, EOMI Neck: supple, Trachea midline Respiratory/Chest: Normal breath sounds, CTA Cardiovascular: S1, S2, No murmur Abdomen/GI:Soft, Non tender, Bowel sounds present Extremities/Musculoskeletal:normal inspection, no edema, Right Hip tender, decreased ROM Neurologic/Psych:AAOX3, grossly no focal neurological deficits Skin: normal color, warm Results & Data Results & Data ([facility]) Vital Signs (Past 12 Hours) Vital Signs Temp Pulse Resp BP Pulse Ox 03/22/21 07:05 36.6 C 78 18 110/62 94 03/22/21 03:25 37 C 82 16 110/56 L 95 Laboratory Results Short CBC 03/22/21 Range/Units 07:22 WBC 9.57 (4.8-10.8) K/uL Hgb 11.4 L (12.0-16.0) g/dL Hct 33.7 L (37-47) % Plt Count 349 (130-400) K/uL BMP 03/22/21 07:22 Sodium 136 Potassium 4.1 Chloride 103 Carbon Dioxide 25 BUN 10 Creatinine 0.61 Glucose 148 H Calcium 8.4 L Liver Function 03/22/21 Range/Units 07:22 Total Bilirubin 0.5 (0.2-1) mg/dl AST 14 L (15-37) U/L ALT 19 (12-78) U/L Alkaline Phosphatase 48 (45-117) U/L Albumin 3.2 L (3.4-5.0) gm/dl
[2021-03-22] MEDS: TRAVOPROST Z 0.004% OPH SOLN 2.5 ML BTL OP SCH (21:36)
[2021-03-22] MEDS: DULoxetine HCL 60 MG CAP PO SCH (21:37)
[2021-03-22] MEDS: DOCUSATE SODIUM/SENNA 50/8.6MG TAB PO SCH (21:37)
[2021-03-23] MEDS: ACETAMINOPHEN 500 MG TAB PO SCH ×3 (06:02→21:41)
[2021-03-23] MEDS: LEVOTHYROXINE SODIUM 25 MCG TABLET PO SCH (06:02)
[2021-03-23 08:42] LABS: Hematocrit (blood only) 34.3 % (37-47); Hemoglobin 11.5 g/dL (12.0-16.0); Mean Corpuscular Hemoglobin 27.6 pg (25-34); Mean Corpuscular Hgb Conc 33.5 g/dL (32-36); Mean Corpuscular Volume 82.5 fL (80-100); Mean Platelet Volume 9.2 fL (7.4-10.4); Platelet Count 334 K/uL (130-400); RDW Standard Deviation 42.5 fL (36.4-46.3); Red Blood Count 4.16 M/uL (4.2-5.4); White Blood Count 9.03 K/uL (4.8-10.8)
[2021-03-23 09:08] LABS: BUN Creatinine Ratio 15.8 (10-20); Calcium 8.4 mg/dl (8.5-10.1); Creatinine Clr Calc Pharmacy 52.6 ml/min; Est GFR (African American) 105.9 ml/min; Est GFR (Non-African American) 91.3 ml/min; Magnesium 2.2 mg/dl (1.8-2.4); Potassium 4.4 mmol/L (3.5-5.1)
[2021-03-23] MEDS: ASCORBIC ACID 500 MG TAB PO SCH (09:09)
[2021-03-23] MEDS: CALCIUM 600MG + VIT D 400 IU TAB PO SCH (09:09)
[2021-03-23] MEDS: ENOXAPARIN INJ 40 MG/0.4 ML SYR SQ SCH (09:09)
[2021-03-23] MEDS: CEROVITE ADV FORMULA TAB PO SCH (09:09)
[2021-03-23] MEDS: amLODIPine BESYLATE 5 MG TAB PO SCH (09:09)
[2021-03-23] MEDS: CHOLECALCIFEROL 1,000 UNITS 25 MCG TAB PO SCH (09:09)
[2021-03-23] MEDS: SODIUM CHLORIDE 1 GM TABLET PO SCH ×2 (09:10→21:05)
[2021-03-23] MEDS: DICLOFENAC SOD 1% GEL 100 GM TUBE EXT SCH ×4 (09:10→21:04)
[2021-03-23] MEDS: INSULIN ASPART 100 UNITS/ML 3 ML PEN SC SCH ×4 (09:11→21:00)
[2021-03-23] MEDS: INSULIN GLARGINE SOLOSTAR 100 UNITS/ML 3 ML PEN SC SCH ×2 (10:14→21:00)
--- NOTE | 2021-03-23 16:47 | Hospitalist Progress Note ---
Date of Service March 23, 2021 Assessment & Plan (1) Closed comminuted fracture of left hip: Nondisplaced intertrochanteric fracture of the left proximal femur -Hip MRI: Nondisplaced intertrochanteric fracture involving the left proximal femur. Orthopedic consultation recommended. Muscular strain/partial tear at the musculotendinous junction of the left gluteus medius and a muscular strain of the left obturator externus.. -Conservative management as per Ortho -Appreciate orthopedics input Pain control PT OT Fall precautions Needs rehab placement Weightbearing as tolerated with walker, assistance as needed Needs follow-up with orthopedics with repeat x-rays in 1 to 2 weeks. (2) Chronic hyponatremia: Sodium: 134>136 Follows with Continue sodium chloride tablets Monitor sodium levels (3) HTN (hypertension): Continue amlodipine (4) Dyslipidemia: Not on statin therapy (5) Osteoarthritis of knees, bilateral: Continue home supplements (6) Vitamin B12 deficiency: Continue Vit B 12 supplement (7) Dementia: No acute issues (8) Type 2 diabetes mellitus: Hold Metformin Continue insulin therapy Monitor blood glucose levels (9) Osteoporosis: Continue Vit D and calcium supplementation (10) Esophageal reflux: Diet controlled (11) Hypothyroid: Continue levothyroxine DVT px: SCDs Lovenox SQ CODE STATUS: Full code Disposition Rehab placement when arranged Admission and Anticipated Discharge Date Admission Date: March 21, 2021 Subjective Patient is seen and examined at bedside Left hip pain is controlled, worse with ambulation Discussed with orthopedic surgery today Denies chest pain, shortness of breath, dizziness, nausea, abdominal pain No new complaints Review of Systems Review of Systems: All systems reviewed & are unremarkable except as noted in HPI & below Physical Exam Physical Exam: Physical Exam: Vitals signs as noted above General Appearance:Thin, Frail, no apparent distress Head: normocephalic, Atraumatic Eyes: normal inspection, EOMI Neck: supple, Trachea midline Respiratory/Chest: Normal breath sounds, CTA Cardiovascular: S1, S2, No murmur Abdomen/GI:Soft, Non tender, Bowel sounds present Extremities/Musculoskeletal:normal inspection, no edema, Right Hip tender, decreased ROM Neurologic/Psych:AAOX3, grossly no focal neurological deficits Skin: normal color, warm Results & Data Results & Data ([facility]) Vital Signs (Past 12 Hours) Vital Signs Temp Pulse Pulse Resp BP Pulse Ox 03/23/21 15:48 36.7 C 81 16 132/73 95 03/23/21 15:34 92 H 03/23/21 11:34 36.6 C 91 H 16 130/74 96 03/23/21 08:06 36.9 C 86 16 128/69 95 03/23/21 07:20 91 H Laboratory Results Short CBC 03/23/21 Range/Units 08:09 WBC 9.03 (4.8-10.8) K/uL Hgb 11.5 L (12.0-16.0) g/dL Hct 34.3 L (37-47) % Plt Count 334 (130-400) K/uL BMP 03/23/21 08:09 Sodium 136 Potassium 4.4 Chloride 105 Carbon Dioxide 26 BUN 7 Creatinine 0.47 L Glucose 169 H Calcium 8.4 L
[2021-03-23] MEDS: DOCUSATE SODIUM/SENNA 50/8.6MG TAB PO SCH (21:04)
[2021-03-23] MEDS: DULoxetine HCL 60 MG CAP PO SCH (21:05)
[2021-03-23] MEDS: TRAVOPROST Z 0.004% OPH SOLN 2.5 ML BTL OP SCH (21:05)
[2021-03-24 05:52] LABS: Hematocrit (blood only) 34.9 % (37-47); Hemoglobin 11.8 g/dL (12.0-16.0); Mean Corpuscular Hemoglobin 27.6 pg (25-34); Mean Corpuscular Hgb Conc 33.8 g/dL (32-36); Mean Corpuscular Volume 81.7 fL (80-100); Mean Platelet Volume 8.9 fL (7.4-10.4); Platelet Count 363 K/uL (130-400); RDW Coefficient of Variation 13.7 % (11.5-14.5); RDW Standard Deviation 40.9 fL (36.4-46.3); Red Blood Count 4.27 M/uL (4.2-5.4); White Blood Count 9.16 K/uL (4.8-10.8)
[2021-03-24] MEDS: LEVOTHYROXINE SODIUM 25 MCG TABLET PO SCH (06:01)
[2021-03-24] MEDS: ACETAMINOPHEN 500 MG TAB PO SCH ×3 (06:02→21:30)
[2021-03-24 06:35] LABS: BUN Creatinine Ratio 9.4 (10-20); Calcium 8.7 mg/dl (8.5-10.1); Creatinine Clr Calc Pharmacy 52.6 ml/min; Est GFR (African American) 105.9 ml/min; Est GFR (Non-African American) 91.3 ml/min; Potassium 4.3 mmol/L (3.5-5.1)
[2021-03-24] MEDS: CEROVITE ADV FORMULA TAB PO SCH (09:14)
[2021-03-24] MEDS: CALCIUM 600MG + VIT D 400 IU TAB PO SCH (09:14)
[2021-03-24] MEDS: amLODIPine BESYLATE 5 MG TAB PO SCH (09:14)
[2021-03-24] MEDS: SODIUM CHLORIDE 1 GM TABLET PO SCH ×2 (09:14→21:30)
[2021-03-24] MEDS: CHOLECALCIFEROL 1,000 UNITS 25 MCG TAB PO SCH (09:15)
[2021-03-24] MEDS: ASCORBIC ACID 500 MG TAB PO SCH (09:15)
[2021-03-24] MEDS: ENOXAPARIN INJ 40 MG/0.4 ML SYR SQ SCH (09:15)
[2021-03-24] MEDS: INSULIN GLARGINE SOLOSTAR 100 UNITS/ML 3 ML PEN SC SCH ×2 (09:16→21:29)
[2021-03-24] MEDS: DICLOFENAC SOD 1% GEL 100 GM TUBE EXT SCH ×4 (09:16→21:27)
[2021-03-24] MEDS: INSULIN ASPART 100 UNITS/ML 3 ML PEN SC SCH ×4 (09:18→21:28)
--- NOTE | 2021-03-24 10:06 | Orthopedic Progress Note ---
Date of Service March 24, 2021 Assessment & Plan (1) Closed fracture of greater trochanter of left femur: MRI reviewed - isolated greater trochanteric fracture. Continue plan of care Recommend PT/OT - may be WBAT with walker, assist as needed. Continue pain control and advance ambulation with PT/OT. I ordered a repeat hip radiograph today to ensure no displacement since beginning weightbearing with therapy. Dispo: Would like to see the x-ray result today but but we can continue with the expectation of being ready for transfer to the next level of care. Subjective She reports continued pain, but it is manageable with the pain medications. She did report that she walked in her room with physical therapy. She states it feels sharp at times and she is weightbearing but it is tolerable. She thinks overall she is improved. She is happy to be avoiding surgery for now. She knows that she is waiting for a spot at a rehabilitation facility. Review of Systems All systems reviewed & are unremarkable except as noted in HPI & below. Physical Exam Left lower extremity: The hip is without any evidence of ecchymosis. There is no deformity. Leg lengths are equal. She still irritable with logroll, as expected. She has active knee extension that is intact. She does do a straight leg raise with some posterior hip pain, as expected. Constitutional WD/WN, vitals as above no acute distress and not intoxicated appearing Respiratory normal respiratory effort; no labored breathing Cardiovascular Extremities: normal capillary refill Results & Data Results & Data Laboratory Results . Diagnostic Findings . None new PG Care Time/CCT Total # of Minutes Spent Total Time Spent with Patient: Total time spent is greater than 50% in coordination of care (as documented) at patient's floor/unit and/or counseling patient: Coding Level of Care Code 15835 Subseq Hosp Care Lvl 3 Diagnoses Closed fracture of greater trochanter of left femur S72.112A Encounter type: initial encounter Fracture alignment: displaced (1) Closed fracture of greater trochanter of left femur Encounter type: initial encounter Fracture alignment: displaced Qualified Code(s): S72.112A - Displaced fracture of greater trochanter of left femur, initial encounter for closed fracture
--- NOTE | 2021-03-24 15:13 | Hospitalist Progress Note ---
Date of Service March 24, 2021 Assessment & Plan (1) Closed comminuted fracture of left hip: Nondisplaced intertrochanteric fracture of the left proximal femur -Hip MRI: Nondisplaced intertrochanteric fracture involving the left proximal femur. Orthopedic consultation recommended. Muscular strain/partial tear at the musculotendinous junction of the left gluteus medius and a muscular strain of the left obturator externus.. -Conservative management as per Ortho -Appreciate orthopedics input Pain control PT OT Fall precautions Weightbearing as tolerated with walker, assistance as needed Needs follow-up with orthopedics with repeat x-rays in 1 to 2 weeks. Repeat hip x-ray pending today Waiting for rehab placement (2) Chronic hyponatremia: Sodium: 134>135 Follows with Continue sodium chloride tablets Monitor sodium levels Sodium levels stable (3) HTN (hypertension): Continue amlodipine (4) Dyslipidemia: Not on statin therapy (5) Osteoarthritis of knees, bilateral: Continue home supplements (6) Vitamin B12 deficiency: Continue Vit B 12 supplement (7) Dementia: No acute issues (8) Type 2 diabetes mellitus: Hold Metformin Continue insulin therapy Monitor blood glucose levels (9) Osteoporosis: Continue Vit D and calcium supplementation (10) Esophageal reflux: Diet controlled (11) Hypothyroid: Continue levothyroxine DVT px: SCDs Lovenox SQ CODE STATUS: Full code Disposition Rehab placement when arranged Admission and Anticipated Discharge Date Admission Date: March 21, 2021 Subjective Patient is seen and examined at bedside No new complaints And physical therapy evaluation earlier today Repeat hip x-ray pending Continues to have Left hip pain Denies chest pain, shortness of breath, dizziness, nausea, abdominal pain Waiting for rehab placement Review of Systems Review of Systems: All systems reviewed & are unremarkable except as noted in HPI & below Physical Exam Physical Exam: Physical Exam: Vitals signs as noted above General Appearance:Thin, Frail, no apparent distress Head: normocephalic, Atraumatic Eyes: normal inspection, EOMI Neck: supple, Trachea midline Respiratory/Chest: Normal breath sounds, CTA Cardiovascular: S1, S2, No murmur Abdomen/GI:Soft, Non tender, Bowel sounds present Extremities/Musculoskeletal:normal inspection, no edema, Right Hip tender, decreased ROM Neurologic/Psych:AAOX3, grossly no focal neurological deficits Skin: normal color, warm Results & Data Results & Data ([facility]) Vital Signs (Past 12 Hours) Vital Signs Temp Pulse Pulse Resp BP Pulse Ox 03/24/21 12:12 36.6 C 100 H 20 147/74 H 97 03/24/21 07:51 36.6 C 87 18 132/69 98 03/24/21 07:15 87 03/24/21 03:48 36.8 C 88 18 144/78 H 97 Laboratory Results Short CBC 03/24/21 Range/Units 05:17 WBC 9.16 (4.8-10.8) K/uL Hgb 11.8 L (12.0-16.0) g/dL Hct 34.9 L (37-47) % Plt Count 363 (130-400) K/uL BMP 03/24/21 05:17 Sodium 135 L Potassium 4.3 Chloride 102 Carbon Dioxide 25 BUN 4 L Creatinine 0.47 L Glucose 133 H Calcium 8.7
--- NOTE | 2021-03-24 17:26 | XRay Report ---
XR hip LT 2V w pelvis CLINICAL HISTORY: fracture f/u after WBing COMPARISON: March 21, 2021. Also correlation is made with CT of the pelvis performed on March 21, 2021 DISCUSSION: Slightly displaced fracture of the left greater trochanter is again seen and appear unchanged since p rior study. Osseous structures are diffusely demineralized which limits evaluation. Degenerative changes of the spine are seen. IMPRESSION: Redemonstration of mildly displaced fracture of the left greater trochanter which is not significan tly changed since prior. ACT 112: Negative or not required by law. The above report was generated using voice recognition software. It may contain grammatical, syntax o r spelling errors. Electronically signed by: Krys Sparks DO 03/24/2021 5:25 PM
[2021-03-24] MEDS: TRAVOPROST Z 0.004% OPH SOLN 2.5 ML BTL OP SCH (21:30)
[2021-03-24] MEDS: DOCUSATE SODIUM/SENNA 50/8.6MG TAB PO SCH (21:31)
[2021-03-24] MEDS: DULoxetine HCL 60 MG CAP PO SCH (21:31)
[2021-03-25] MEDS: LEVOTHYROXINE SODIUM 25 MCG TABLET PO SCH (06:21)
[2021-03-25] MEDS: ACETAMINOPHEN 500 MG TAB PO SCH ×3 (06:21→21:49)
[2021-03-25] MEDS: SODIUM CHLORIDE 1 GM TABLET PO SCH ×2 (08:35→20:28)
[2021-03-25] MEDS: CHOLECALCIFEROL 1,000 UNITS 25 MCG TAB PO SCH (08:35)
[2021-03-25] MEDS: CALCIUM 600MG + VIT D 400 IU TAB PO SCH (08:36)
[2021-03-25] MEDS: amLODIPine BESYLATE 5 MG TAB PO SCH (08:36)
[2021-03-25] MEDS: CEROVITE ADV FORMULA TAB PO SCH (08:36)
[2021-03-25] MEDS: ASCORBIC ACID 500 MG TAB PO SCH (08:36)
[2021-03-25] MEDS: INSULIN ASPART 100 UNITS/ML 3 ML PEN SC SCH ×4 (08:38→20:26)
[2021-03-25] MEDS: ENOXAPARIN INJ 40 MG/0.4 ML SYR SQ SCH (08:40)
[2021-03-25] MEDS: DICLOFENAC SOD 1% GEL 100 GM TUBE EXT SCH ×4 (08:40→20:25)
[2021-03-25] MEDS: INSULIN GLARGINE SOLOSTAR 100 UNITS/ML 3 ML PEN SC SCH ×2 (08:41→20:30)
--- NOTE | 2021-03-25 10:00 | Orthopedic Progress Note ---
Date of Service March 25, 2021 Assessment & Plan (1) Closed fracture of greater trochanter of left femur: 81-year-old otherwise healthy and active female with isolated greater trochanteric fracture. Stable pattern. Continue nonoperative plan of care Continue PT/OT - may be WBAT with walker, assist as needed. VTE prophylaxis: Can transition to an agent like aspirin, if tolerable. Continue mechanical prophylaxis while in bed. Highest risk for VTE for this fracture pattern is in the first 6 weeks. She is increasing ambulation and should plan for at least 4 weeks of VTE prophylaxis. Disposition: Cleared for transition to the next level of care. Follow-up with Dr. Barnett or myself for x-rays in 10-14 days, as noted in her discharge plan. Subjective She reports increased tolerance to ambulation. She remains with pain and is treating her medications and ice. She reports no setbacks. Review of Systems All systems reviewed & are unremarkable except as noted in HPI & below. Physical Exam LLE: No changes. Neurovascular intact. Constitutional WD/WN, vitals as above no acute distress and not intoxicated appearing Respiratory normal respiratory effort; no labored breathing Cardiovascular Extremities: normal capillary refill Results & Data Results & Data Laboratory Results . Diagnostic Findings I reviewed the radiographs from yesterday. These include AP pelvis, AP hip and a attempted lateral view of the hip. These x-rays demonstrate no interval displacement since initiating weightbearing and gait training with PT/OT. PG Care Time/CCT Total # of Minutes Spent Total Time Spent with Patient: Total time spent is greater than 50% in coordination of care (as documented) at patient's floor/unit and/or counseling patient: Coding Level of Care Code 66198 Subseq Hosp Care Lvl 2 Diagnoses Closed fracture of greater trochanter of left femur S72.112A Encounter type: initial encounter Fracture alignment: displaced (1) Closed fracture of greater trochanter of left femur Encounter type: initial encounter Fracture alignment: displaced Qualified Code(s): S72.112A - Displaced fracture of greater trochanter of left femur, initial encounter for closed fracture
--- NOTE | 2021-03-25 16:47 | Hospitalist Progress Note ---
Date of Service March 25, 2021 Assessment & Plan (1) Closed comminuted fracture of left hip: Nondisplaced intertrochanteric fracture of the left proximal femur -Hip MRI: Nondisplaced intertrochanteric fracture involving the left proximal femur. Orthopedic consultation recommended. Muscular strain/partial tear at the musculotendinous junction of the left gluteus medius and a muscular strain of the left obturator externus.. -Conservative management as per Ortho -Appreciate orthopedics input Pain control Continue PT OT Fall precautions Weightbearing as tolerated with walker, assistance as needed Needs follow-up with orthopedics with repeat x-rays in 1 to 2 weeks. Plan to discharge to rehab when accepted (2) Chronic hyponatremia: Sodium: 134>135 Follows with Continue sodium chloride tablets Monitor sodium levels Sodium levels stable (3) HTN (hypertension): Continue amlodipine (4) Dyslipidemia: Not on statin therapy (5) Osteoarthritis of knees, bilateral: Continue home supplements (6) Vitamin B12 deficiency: Continue Vit B 12 supplement (7) Dementia: No acute issues (8) Type 2 diabetes mellitus: Hold Metformin Continue insulin therapy Monitor blood glucose levels (9) Osteoporosis: Continue Vit D and calcium supplementation (10) Esophageal reflux: Diet controlled (11) Hypothyroid: Continue levothyroxine DVT px: SCDs Lovenox SQ CODE STATUS: Full code Disposition Rehab placement when arranged Admission and Anticipated Discharge Date Admission Date: March 21, 2021 Subjective Patient is seen and examined at bedside Hip Pain is better controlled with ice application as per patient Prefers to avoid narcotics Waiting for rehab placement No new complaints Denies chest pain, shortness of breath, dizziness, nausea, abdominal pain Review of Systems Review of Systems: All systems reviewed & are unremarkable except as noted in HPI & below Physical Exam Physical Exam: Physical Exam: Vitals signs as noted above General Appearance:Thin, Frail, no apparent distress Head: normocephalic, Atraumatic Eyes: normal inspection, EOMI Neck: supple, Trachea midline Respiratory/Chest: Normal breath sounds, CTA Cardiovascular: S1, S2, No murmur Abdomen/GI:Soft, Non tender, Bowel sounds present Extremities/Musculoskeletal:normal inspection, no edema, Right Hip tender, decreased ROM Neurologic/Psych:AAOX3, grossly no focal neurological deficits Skin: normal color, warm Results & Data Results & Data ([facility]) Vital Signs (Past 12 Hours) Vital Signs Temp Pulse Pulse Resp BP Pulse Ox 03/25/21 16:06 36.6 C 92 H 18 118/74 96 03/25/21 14:20 89 03/25/21 12:25 36.5 C 92 H 18 137/83 97 03/25/21 07:24 36.4 C L 95 H 19 130/64 97 03/25/21 07:11 96 H
[2021-03-25] MEDS: DOCUSATE SODIUM/SENNA 50/8.6MG TAB PO SCH (20:29)
[2021-03-25] MEDS: DULoxetine HCL 60 MG CAP PO SCH (20:30)
[2021-03-25] MEDS: TRAVOPROST Z 0.004% OPH SOLN 2.5 ML BTL OP SCH (20:34)
[2021-03-26] MEDS: ACETAMINOPHEN 500 MG TAB PO SCH ×3 (06:01→22:04)
[2021-03-26] MEDS: LEVOTHYROXINE SODIUM 25 MCG TABLET PO SCH (06:01)
[2021-03-26] MEDS: amLODIPine BESYLATE 5 MG TAB PO SCH (10:13)
[2021-03-26] MEDS: CALCIUM 600MG + VIT D 400 IU TAB PO SCH (10:13)
[2021-03-26] MEDS: SODIUM CHLORIDE 1 GM TABLET PO SCH ×2 (10:14→20:30)
[2021-03-26] MEDS: CHOLECALCIFEROL 1,000 UNITS 25 MCG TAB PO SCH (10:14)
[2021-03-26] MEDS: CEROVITE ADV FORMULA TAB PO SCH (10:14)
[2021-03-26] MEDS: ASCORBIC ACID 500 MG TAB PO SCH (10:14)
[2021-03-26] MEDS: ENOXAPARIN INJ 40 MG/0.4 ML SYR SQ SCH (10:15)
[2021-03-26] MEDS: DICLOFENAC SOD 1% GEL 100 GM TUBE EXT SCH ×4 (10:15→20:28)
[2021-03-26] MEDS: INSULIN GLARGINE SOLOSTAR 100 UNITS/ML 3 ML PEN SC SCH ×2 (10:19→20:30)
[2021-03-26] MEDS: INSULIN ASPART 100 UNITS/ML 3 ML PEN SC SCH ×4 (10:20→20:30)
--- NOTE | 2021-03-26 13:03 | Hospitalist Progress Note ---
Date of Service March 26, 2021 Assessment & Plan (1) Closed comminuted fracture of left hip: Nondisplaced intertrochanteric fracture of the left proximal femur -Hip MRI: Nondisplaced intertrochanteric fracture involving the left proximal femur. Orthopedic consultation recommended. Muscular strain/partial tear at the musculotendinous junction of the left gluteus medius and a muscular strain of the left obturator externus.. -Conservative management as per Ortho -Appreciate orthopedics input Pain control Continue PT OT recommends Rehab Fall precautions Weightbearing as tolerated with walker, assistance as needed Needs follow-up with orthopedics with repeat x-rays in 1 to 2 weeks. Stable (2) Chronic hyponatremia: Sodium: 134>135 Follows with Continue sodium chloride tablets Monitor sodium levels Sodium levels stable (3) HTN (hypertension): Continue amlodipine (4) Dyslipidemia: Not on statin therapy (5) Osteoarthritis of knees, bilateral: Continue home supplements (6) Vitamin B12 deficiency: Continue Vit B 12 supplement (7) Dementia: No acute issues (8) Type 2 diabetes mellitus: Hold Metformin Continue insulin therapy while hospitalized Monitor blood glucose levels (9) Osteoporosis: Continue Vit D and calcium supplementation (10) Esophageal reflux: Diet controlled (11) Hypothyroid: Continue levothyroxine DVT px: SCDs Lovenox SQ CODE STATUS: Full code Disposition Rehab placement Admission and Anticipated Discharge Date Admission Date: March 21, 2021 Subjective Patient is seen and examined at bedside No new complaints Was able to ambulate better as per patient Hip Pain is controlled Denies chest pain, shortness of breath, dizziness, nausea, abdominal pain Review of Systems Review of Systems: All systems reviewed & are unremarkable except as noted in HPI & below Physical Exam Physical Exam: Physical Exam: Vitals signs as noted above General Appearance:Thin, Frail, no apparent distress Head: normocephalic, Atraumatic Eyes: normal inspection, EOMI Neck: supple, Trachea midline Respiratory/Chest: Normal breath sounds, CTA Cardiovascular: S1, S2, No murmur Abdomen/GI:Soft, Non tender, Bowel sounds present Extremities/Musculoskeletal:normal inspection, no edema, Right tender with movement Neurologic/Psych:AAOX3, grossly no focal neurological deficits Skin: normal color, warm Results & Data Results & Data ([facility]) Vital Signs (Past 12 Hours) Vital Signs Temp Pulse Pulse Resp BP BP Pulse Ox 03/26/21 07:38 89 03/26/21 07:00 36.3 C L 89 18 137/71 99 03/26/21 04:08 36.7 C 85 18 122/66 99 03/26/21 01:57 85
[2021-03-26] MEDS: DULoxetine HCL 60 MG CAP PO SCH (20:29)
[2021-03-26] MEDS: DOCUSATE SODIUM/SENNA 50/8.6MG TAB PO SCH (20:29)
[2021-03-26] MEDS: TRAVOPROST Z 0.004% OPH SOLN 2.5 ML BTL OP SCH (20:30)
[2021-03-27] MEDS: ACETAMINOPHEN 500 MG TAB PO SCH ×3 (06:05→20:29)
[2021-03-27] MEDS: LEVOTHYROXINE SODIUM 25 MCG TABLET PO SCH (06:05)
[2021-03-27] MEDS: amLODIPine BESYLATE 5 MG TAB PO SCH (08:42)
[2021-03-27] MEDS: SODIUM CHLORIDE 1 GM TABLET PO SCH ×2 (08:42→20:28)
[2021-03-27] MEDS: CEROVITE ADV FORMULA TAB PO SCH (08:42)
[2021-03-27] MEDS: ASCORBIC ACID 500 MG TAB PO SCH (08:42)
[2021-03-27] MEDS: CHOLECALCIFEROL 1,000 UNITS 25 MCG TAB PO SCH (08:42)
[2021-03-27] MEDS: CALCIUM 600MG + VIT D 400 IU TAB PO SCH (08:42)
[2021-03-27] MEDS: INSULIN GLARGINE SOLOSTAR 100 UNITS/ML 3 ML PEN SC SCH ×2 (08:43→20:32)
[2021-03-27] MEDS: DICLOFENAC SOD 1% GEL 100 GM TUBE EXT SCH ×4 (08:43→20:29)
[2021-03-27] MEDS: ENOXAPARIN INJ 40 MG/0.4 ML SYR SQ SCH (08:43)
[2021-03-27] MEDS: INSULIN ASPART 100 UNITS/ML 3 ML PEN SC SCH ×4 (08:44→20:31)
--- NOTE | 2021-03-27 11:47 | XRay Report ---
XR elbow RT min 3V routine CLINICAL HISTORY: Right elbow pain status post trauma COMPARISON: 06/16/2018 DISCUSSION: There are old posttraumatic deformities with secondary osteoarthritis. Several loose bodi es are visualized. There is olecranon spurring. No definite acute fractures are evident. IMPRESSION: 1. Old posttraumatic changes with secondary moderately advanced osteoarthritis with calcified loose b odies. 2. No acute fractures identified on conventional radiographic imaging ACT 112: Negative or not required by law. Electronically signed by: Ajay Lofton M.D. 03/27/2021 11:46 AM
--- NOTE | 2021-03-27 11:52 | XRay Report ---
RIGHT SHOULDER 3 VIEWS CLINICAL HISTORY: Right shoulder pain. Recent fall. FINDINGS: 3 views of the right shoulder are compared to study dated 06/15/2008. The skeletal structure s are osteopenic. There is no radiographic evidence of fracture or dislocation. Advanced osteoarthrit ic change is seen at the glenohumeral articulation with near loss of the joint space. There is bony s clerosis, subchondral cyst formation, and spurring along the humeral head. Sclerotic change is also n oted in the glenoid. Superior subluxation of the humeral head suggests chronic rotator cuff injury. P roductive degenerative change is noted at the acromioclavicular joint. The overlying soft tissues are normal as imaged. The visualized right upper lobe lung parenchyma appears clear. IMPRESSION: Osteopenia and advanced degenerative change as above with no acute bony abnormality ident ified. Electronically signed by: Jeff Graham M.D. 03/27/2021 11:50 AM
--- NOTE | 2021-03-27 13:08 | Hospitalist Progress Note ---
Date of Service March 27, 2021 Assessment & Plan (1) Closed comminuted fracture of left hip: Nondisplaced intertrochanteric fracture of the left proximal femur Secondary to mechanical fall In setting of Osteoporosis -Hip MRI: Nondisplaced intertrochanteric fracture involving the left proximal femur. Orthopedic consultation recommended. Muscular strain/partial tear at the musculotendinous junction of the left gluteus medius and a muscular strain of the left obturator externus.. -Conservative management as per Ortho -Appreciate orthopedics input Pain control Continue PT OT recommends Rehab Fall precautions Weightbearing as tolerated with walker, assistance as needed Needs follow-up with orthopedics with repeat x-rays in 1 to 2 weeks. Right Shoulder Pain Shoulder X ray: Osteopenia and advanced degenerative change as above with no acute bony abnormality identified. Elbow X ray:Old posttraumatic changes with secondary moderately advanced osteoarthritis with calcified loose bodies. No acute fractures identified on conventional radiographic imaging (2) Chronic hyponatremia: Sodium: 134>135 Follows with Continue sodium chloride tablets Monitor sodium levels Sodium levels stable (3) HTN (hypertension): Continue amlodipine (4) Dyslipidemia: Not on statin therapy (5) Osteoarthritis of knees, bilateral: Continue home supplements (6) Vitamin B12 deficiency: Continue Vit B 12 supplement (7) Dementia: No acute issues (8) Type 2 diabetes mellitus: Hold Metformin Continue insulin therapy while hospitalized Monitor blood glucose levels (9) Osteoporosis: Continue Vit D and calcium supplementation (10) Esophageal reflux: Diet controlled (11) Hypothyroid: Continue levothyroxine DVT px: SCDs Lovenox SQ CODE STATUS: Full code Disposition Rehab placement when arranged Admission and Anticipated Discharge Date Admission Date: March 21, 2021 Subjective Patient is seen and examined at bedside States having right shoulder pain, intermittently radiating to right elbow No change in Hip Pain from yesterday Denies chest pain, shortness of breath, dizziness, nausea, abdominal pain Waiting for Rehab placement Review of Systems Review of Systems: All systems reviewed & are unremarkable except as noted in HPI & below Physical Exam Physical Exam: Physical Exam: Vitals signs as noted above General Appearance:Thin, Frail, no apparent distress Head: normocephalic, Atraumatic Eyes: normal inspection, EOMI Neck: supple, Trachea midline Respiratory/Chest: Normal breath sounds, CTA Cardiovascular: S1, S2, No murmur Abdomen/GI:Soft, Non tender, Bowel sounds present Extremities/Musculoskeletal:normal inspection, no edema, Right tender with movement Neurologic/Psych:AAOX3, grossly no focal neurological deficits Skin: normal color, warm Results & Data Results & Data ([facility]) Vital Signs (Past 12 Hours) Vital Signs Temp Pulse Pulse Resp BP Pulse Ox 03/27/21 12:21 36.6 C 98 H 18 139/81 97 03/27/21 09:47 88 03/27/21 06:55 36.4 C L 86 18 133/76 95 03/27/21 05:08 36.6 C 79 18 117/68 98
[2021-03-27] MEDS: DOCUSATE SODIUM/SENNA 50/8.6MG TAB PO SCH (20:28)
[2021-03-27] MEDS: DULoxetine HCL 60 MG CAP PO SCH (20:28)
[2021-03-27] MEDS: TRAVOPROST Z 0.004% OPH SOLN 2.5 ML BTL OP SCH (20:29)
--- NOTE | 2021-03-27 21:58 | Orthopedic Progress Note ---
Date of Service March 27, 2021 Assessment & Plan (1) Closed fracture of greater trochanter of left femur: 81-year-old otherwise healthy and active female with isolated greater trochanteric fracture. Continue nonoperative plan of care. Discussed her status with her son and power of employee benefits attorney today. I reiterated that I do not think there is any role for surgery to improve her outcomes. We do still need to monitor this fracture for displacement, and I offered to see her in my clinic or Dr. Barnett's clinic in 2 to 3 weeks after injury. Continue PT/OT - may be WBAT with walker, assist as needed. VTE prophylaxis: Can transition to an agent like aspirin, if tolerable. Continue mechanical prophylaxis while in bed. Highest risk for VTE for this fracture pattern is in the first 6 weeks. She is increasing ambulation and should plan for at least 4 weeks of VTE prophylaxis. Disposition: Cleared for transition to the next level of care. Follow-up with Dr. Barnett or myself for x-rays in 10-14 days, as noted in her discharge plan. Subjective Patient was seen and evaluated as she ambulated in [place] with physical therapy. I also discussed her condition by phone with her power of employee benefits attorney and son, Dr. Kong. The patient and therapist reports she is making progress more tolerant and weightbearing with her walker. She did she does have some pain that is tolerable medications. She will describe some increasing shoulder pain that she has had in the past. She had been evaluated at [facility] with regard to rotator cuff arthropathy. She opted for no surgery at that point. Overall, she is making progress. She is awaiting placement at the next care. Review of Systems All systems reviewed & are unremarkable except as noted in HPI & below. Physical Exam She is ambulating the hallway with a walker with active monitoring assistance by therapist. She is demonstrating a shortened stance phase in the affected left lower extremity. Constitutional WD/WN, vitals as above no acute distress and not intoxicated appearing Respiratory normal respiratory effort; no labored breathing Cardiovascular Extremities: normal capillary refill Results & Data Results & Data Laboratory Results . Diagnostic Findings No new radiographs indicated PG Care Time/CCT Total # of Minutes Spent Total Time Spent with Patient: Total time spent is greater than 50% in coor dination of care (as documented) at patient's floor/unit and/or counseling patient: Coding Level of Care Code 64242 Subseq Hosp Care Lvl 2 Diagnoses Closed fracture of greater trochanter of left femur S72.112A Encounter type: initial encounter Fracture alignment: displaced (1) Closed fracture of greater trochanter of left femur Encounter type: initial encounter Fracture alignment: displaced Qualified Code(s): S72.112A - Displaced fracture of greater trochanter of left femur, initial encounter for closed fracture
[2021-03-28] MEDS: LEVOTHYROXINE SODIUM 25 MCG TABLET PO SCH (05:52)
[2021-03-28] MEDS: ACETAMINOPHEN 500 MG TAB PO SCH ×2 (05:52→15:32)
[2021-03-28 07:50] LABS: Hematocrit (blood only) 36.8 % (37-47); Hemoglobin 12.6 g/dL (12.0-16.0); Mean Corpuscular Hemoglobin 27.9 pg (25-34); Mean Corpuscular Hgb Conc 34.2 g/dL (32-36); Mean Corpuscular Volume 81.4 fL (80-100); Mean Platelet Volume 8.8 fL (7.4-10.4); Platelet Count 424 K/uL (130-400); RDW Coefficient of Variation 13.9 % (11.5-14.5); RDW Standard Deviation 41.4 fL (36.4-46.3); Red Blood Count 4.52 M/uL (4.2-5.4); White Blood Count 10.09 K/uL (4.8-10.8)
[2021-03-28 08:24] LABS: BUN Creatinine Ratio 16.8 (10-20); Calcium 9.4 mg/dl (8.5-10.1); Creatinine Clr Calc Pharmacy 43.6 ml/min; Est GFR (African American) 99.4 ml/min; Est GFR (Non-African American) 85.7 ml/min; Potassium 4.3 mmol/L (3.5-5.1)
[2021-03-28] MEDS: CEROVITE ADV FORMULA TAB PO SCH (09:04)
[2021-03-28] MEDS: SODIUM CHLORIDE 1 GM TABLET PO SCH (09:04)
[2021-03-28] MEDS: amLODIPine BESYLATE 5 MG TAB PO SCH (09:04)
[2021-03-28] MEDS: ASCORBIC ACID 500 MG TAB PO SCH (09:04)
[2021-03-28] MEDS: DICLOFENAC SOD 1% GEL 100 GM TUBE EXT SCH ×2 (09:05→13:46)
[2021-03-28] MEDS: CALCIUM 600MG + VIT D 400 IU TAB PO SCH (09:05)
[2021-03-28] MEDS: CHOLECALCIFEROL 1,000 UNITS 25 MCG TAB PO SCH (09:05)
[2021-03-28] MEDS: ENOXAPARIN INJ 40 MG/0.4 ML SYR SQ SCH (09:06)
[2021-03-28] MEDS: INSULIN ASPART 100 UNITS/ML 3 ML PEN SC SCH ×2 (09:09→11:53)
[2021-03-28] MEDS: INSULIN GLARGINE SOLOSTAR 100 UNITS/ML 3 ML PEN SC SCH (09:10)
--- NOTE | 2021-03-28 10:58 | Hospitalist Progress Note ---
Date of Service March 28, 2021 Assessment & Plan (1) Closed comminuted fracture of left hip: Nondisplaced intertrochanteric fracture of the left proximal femur Secondary to mechanical fall In setting of Osteoporosis -Hip MRI: Nondisplaced intertrochanteric fracture involving the left proximal femur. Orthopedic consultation recommended. Muscular strain/partial tear at the musculotendinous junction of the left gluteus medius and a muscular strain of the left obturator externus.. -Conservative management as per Ortho -Appreciate orthopedics input Weightbearing as tolerated with walker, assistance as needed Needs follow-up with orthopedics with repeat x-rays in 1 to 2 weeks. Patient is discharged on Lovenox subcu 40 mg daily for 4 weeks for DVT prophylaxis Right Shoulder Pain Shoulder X ray: Osteopenia and advanced degenerative change as above with no acute bony abnormality identified. Elbow X ray:Old posttraumatic changes with secondary moderately advanced osteoarthritis with calcified loose bodies. No acute fractures identified on conventional radiographic imaging Conservative management, continue physical therapy occupational therapy Patient prefers to take Tylenol only May benefit with articular steroid injection in the future intractable symptoms, patient is aware (2) Chronic hyponatremia: Sodium level stable Follows with Continue sodium chloride tablets (3) HTN (hypertension): Continue amlodipine (4) Dyslipidemia: Not on statin therapy (5) Osteoarthritis of knees, bilateral: Continue home supplements (6) Vitamin B12 deficiency: Continue Vit B 12 supplement (7) Dementia: No acute issues (8) Type 2 diabetes mellitus: Hold Metformin Continue insulin therapy while hospitalized Monitor blood glucose levels (9) Osteoporosis: Continue Vit D and calcium supplementation (10) Esophageal reflux: Diet controlled (11) Hypothyroid: Continue levothyroxine DVT px: SCDs Lovenox SQ CODE STATUS: Full code Disposition Transfer to [facility] rehab today Admission and Anticipated Discharge Date Admission Date: March 21, 2021 Subjective Follow-up visit for closed fracture of greater trochanter of left femur. Patient reports left hip pain has improved, was able to walk to the bathroom with rolling walker with assistance with physical therapy. Few steps, it is difficult to walk because of the pain on the left hip get worse, Has persistent right shoulder pain Which has been chronic, Offers no other complaints, very pleasant, no fever or chills, no shortness of breath no chest pain or dyspnea on exertion Patient is accepted for skilled rehab at [facility] Review of Systems Review of Systems: All systems reviewed & are unremarkable except as noted in Subjective Physical Exam Physical Exam: Physical exam: General: Frail appearing elderly female, no apparent distress HEENT: PERRLA, EOMI, Heart: Regular S1-S2, no carotid bruit, no JVD, no lower extremity edema Lungs: Clear to auscultate, no wheeze or rales Abdomen: Soft nontender, no organomegaly Extremity: Positive tenderness on the left hip area, chronic pain on the right shoulder, limited range of motion Neuro: No focal neurological deficit normal speech, Psych: Alert awake oriented x3, normal affect Results & Data Results & Data ([facility]) Vital Signs (Past 12 Hours) Vital Signs Temp Pulse Pulse Resp BP Pulse Ox 03/28/21 07:00 36.5 C 93 H 86 18 142/80 H 95 03/28/21 03:00 36.6 C 91 H 20 132/69 97 03/27/21 23:00 36.5 C 84 20 146/70 H 97
--- NOTE | 2021-03-28 13:29 | Communication Note ---
Date of Service: March 28, 2021 Patient was scheduled to be discharged to skilled rehab today, per case management patient is approved for skilled rehab for 3 days on the starting from today Patient is medically stable to be transition to rehab, transport was a set up for 4:30 PM today, I called patient's son neurosurgeon at [facility], Dr. Mata Hall, updated him regarding the rehab transfer Patient's son was present regarding the short duration of rehab, does not want patient to be transferred to skilled rehab with 3 days of approval, Case management updated, appreciate input, patient is initially approved for 3 days by insurance company, which can be extended depending on patient's physical therapy needs. After explaining the insurance regulation by case management, and patient may receive a longer duration physical therapy at rehab as indicated. Son is agreeable for transfer to skilled rehab today Melyssa Castellanos MD
--- NOTE | 2021-03-28 14:15 | Discharge Summary ---
Date of Service March 28, 2021 Admission HPI Per Admitting Provider This is an 81-year-old female with PMHx of HTN, HLD, hypothyroidism, DM type II, chronic hyponatremia, dementia, GERD, spondylolisthesis, osteoporosis who presents after a fall sustaining a left comminuted femoral fracture. This occurred while she was standing up and doing her morning exercises. Patient denies any lightheadedness, dizziness and that she lost her balance and fell. She reports that her pain is fairly well controlled presently and that she needs to pee, and is asking to get up several times during my visit. Pt reports that she took her morning medications today. She has a caregiver at the bedside who supports the history. Patient has a son who is a neurosurgeon and is listed as her power of deputy attorney general and makes all medical decisions for her. Principal Diagnosis Closed fracture of greater trochanter of left femur after fall Chronic hyponatremia Chronic right shoulder pain Discharge Exam Physical exam: General: Frail appearing elderly female, no apparent distress HEENT: PERRLA, EOMI, Heart: Regular S1-S2, no carotid bruit, no JVD, no lower extremity edema Lungs: Clear to auscultate, no wheeze or rales Abdomen: Soft nontender, no organomegaly Extremity: Positive tenderness on the left hip area, chronic pain on the right shoulder, limited range of motion Neuro: No focal neurological deficit normal speech, Psych: Alert awake oriented x3, normal affect Discharge Data Allergies Allergy/AdvReac Type Severity Reaction Status Date / Time salicylates Allergy Severe HIVES Verified 03/21/21 11:50 monosodium glutamate Allergy Mild Verified 03/21/21 11:50 Penicillins Allergy Mild Verified 03/21/21 11:50 Sulfa (Sulfonamide Allergy Mild Verified 03/21/21 11:50 Antibiotics) alendronate sodium Allergy Unknown UNKNOWN Verified 03/21/21 11:50 Consultations 03/21/21 10:59 ED Decision to Admit Stat 03/21/21 12:48 Consult Orthopedic Surgery Routine Ordered Studies 03/21/21 09:43 CT cervical spine wo con Stat CT head/brain wo con Stat 03/21/21 10:07 CT hip LT wo con Stat 03/21/21 17:53 MR hip LT wo con Urgent Hospital Course (1) Closed comminuted fracture of left hip: Nondisplaced intertrochanteric fracture of the left proximal femur Secondary to mechanical fall In setting of Osteoporosis -Hip MRI: Nondisplaced intertrochanteric fracture involving the left proximal femur. Orthopedic consultation recommended. Muscular strain/partial tear at the musculotendinous junction of the left gluteus medius and a muscular strain of the left obturator externus.. -Conservative management as per Ortho -Appreciate orthopedics input Weightbearing as tolerated with walker, assistance as needed Needs follow-up with orthopedics with repeat x-rays in 1 to 2 weeks. Patient is discharged on Lovenox subcu 40 mg daily for 4 weeks for DVT prophylaxis Right Shoulder Pain Shoulder X ray: Osteopenia and advanced degenerative change as above with no acute bony abnormality identified. Elbow X ray:Old posttraumatic changes with secondary moderately advanced osteoarthritis with calcified loose bodies. No acute fractures identified on conventional radiographic imaging (2) Chronic hyponatremia: Sodium: 134>135 Follows with Continue sodium chloride tablets Monitor sodium levels Sodium levels stable (3) HTN (hypertension): Continue amlodipine (4) Dyslipidemia: Not on statin therapy (5) Osteoarthritis of knees, bilateral: Continue home supplements (6) Vitamin B12 deficiency: Continue Vit B 12 supplement (7) Dementia: No acute issues (8) Type 2 diabetes mellitus: Hold Metformin Continue insulin therapy while hospitalized Monitor blood glucose levels (9) Osteoporosis: Continue Vit D and calcium supplementation (10) Esophageal reflux: Diet controlled (11) Hypothyroid: Continue levothyroxine DVT px: SCDs Lovenox SQ CODE STATUS: Full code Disposition Stable to be discharged to skilled rehab today Total Time Total Time Spent Total Time Spent (In Minutes): 40 mins Total Time Includes: Examination of the Patient, Discharge Planning and Medication Reconciliation Discharge Plan Discharge Items Patient Disposition: Transfer [facility] Fac Reason For Visit: LEFT HIP FRACTURE Discharge Diagnosis: Closed fracture of greater trochanter of left femur after fall Chronic hyponatremia Chronic right shoulder pain Condition on Discharge: Good Activity: Per Instructions section Weightbearing Comment: Right-sided weightbearing as tolerated with walker or assistance as needed Non-emergency contact: Primary Care Provider Call non-emergency contact if: you have any medication questions Follow-up/Referrals: Pedro Barnett MD [Physician] - (Followup with Dr. Barnett or Niels in 2 weeks for repeat hip xrays ) Tabitha Hall MD [Primary Care Provider] - Diet: Heart Healthy Addtl Attending Provider Instructions: Please take all medications as instructed on discharge list below. It is recommended that you follow-up with your primary care physician within 1-2 weeks of hospital discharge to ensure you are still doing well. Please call if you have any questions or problems. You can reach a [place] hospitalist on duty at [facility] 24 hours a day by calling [phone] [facility] Provider Instructions: Continue physical therapy occupational therapy at the rehab Weightbearing as tolerated with walker or assistance as needed Follow-up with orthopedics Dr. Barnett or Dr. Bowser in 2 weeks will need a repeat x-ray of hip Discharged on subcu Lovenox 40 mg daily for 4 weeks to prevent lower extremity deep vein thrombosis Pending Studies at Discharge: No Stand-Alone Forms: [facility] Skilled Items Patient informed of condition?: Yes DNR: No Discharge Level of Care: Skilled Communicable Disease: No Discharge Prognosis: Stable Lines: None Urinary Catheter: No Medications and DC Order Prescriptions: New enoxaparin 40 mg/0.4 mL Syringe 40 mg subcut QAM 30 Days Qty: 0 RF: 0 Continued cyanocobalamin (vitamin B-12) 1,000 mcg/mL kit 100 mcg IM .COMPLEX Qty: 1 RF: 0 levothyroxine [Synthroid] 25 mcg tablet 25 mcg PO DAILY Qty: 90 RF: 3 ascorbic acid (vitamin C) 500 mg tablet 500 mg PO DAILY RF: 0 cholecalciferol (vitamin D3) 2,000 unit tablet 2,000 units PO DAILY RF: 0 travoprost 0.004 % drops 1 drops OP QPM Qty: 3 RF: 0 diclofenac sodium 1 % gel 1 ea TOPICAL QID RF: 0 sodium chloride 1 gram Tablet 1,000 mg PO BID RF: 0 amlodipine [Norvasc] 5 mg Tablet 5 mg PO QAM Qty: 30 RF: 5 sennosides-docusate sodium [Senokot-S] 8.6-50 mg Tablet 1 tab PO BID PRN (Reason: constipation) Qty: 60 RF: 0 calcium carbonate-vitamin D3 600 mg(1,500mg) -200 unit Tablet 1 tab PO DAILY RF: 0 coenzyme Q10 [CoQ-10] 100 mg Capsule 100 mg PO DAILY RF: 0 ityqpqifsybo-Qt-nsvm-minerals 18-0.4 mg Tablet 1 tab PO DAILY RF: 0 metformin 500 mg tablet extended release 24 hr 1,000 mg PO BID RF: 0 duloxetine 60 mg capsule,delayed release(DR/EC) 60 mg PO HS RF: 0 Discharge Orders: Discharge Order (Routine); Ordered 03/28/21 Ordered By: Melyssa Castellanos Admission Data Admit Date/Time: 03/21/21 11:34 Attending Provider: Melyssa Castellanos Admit Provider: Julien Pedroza Primary Care Provider: Tabitha Hall Other Providers: Julien Pedroza ; Petra Rocha ; Raymond Bowser ; Sam Sarkar ; Farshad Yi ; Meera Lomas ; Niels [place] ; Pretty Gao ; Hugo Tuttle ; Wendi Casey ; Pedro Barnett ; Yair Morel ; Agustin Kumar ; Agustin Del Toro ; Syeda Thomas ; [facility] ; Karri Escoto ; Abimael Mejia at [place] Other Interventions: Discharge Summary Assessment (RN) Last Done: 03/28/21 13:54
== END 2021-03-28 16:11 | DRG 536 ==
LOC: ED 09:14 → 2W 11:34 → SUATTDRO 11:34 → INTOOBSV 11:34 → OBSVTOIN 11:34 → 2W 12:04

== ENCOUNTER 2023-09-25 10:51 | Inpatient (IN) ==
[2023-09-25] MEDS ORDERED: SODIUM CHLORIDE 0.9% 500 ML IV SCH (11:45)
[2023-09-25] MEDS ORDERED: ACETAMINOPHEN 1,000 MG/100 ML VIAL IV STA (12:01)
--- NOTE | 2023-09-25 12:01 | Emergency Department Note ---
Impression & Plan Weakness, Acute head trauma, Laceration of scalp, Acute hyponatremia ED Provider Note NAME: YONNY FARLEY AGE: 83 SEX: F : 1940 ARRIVES VIA: Walk-In INFORMANT: [Patient][care provider] ED PROVIDER(S): [Jeff Noe MD] CHIEF COMPLAINT: Fall HISTORY OF PRESENT ILLNESS: The patient is an 83-year-old female presents to the ED after falling and striking her head. She was standing for a while and felt dizzy and then fell. No loss of consciousness. She is complaining of some increased right hip pain since the fall. She has a history of a healing fracture to the right hip. She has a headache. The patient also fell within the last week, she was not seen for this fall. The patient carries a history of hyponatremia. Her caregiver is concerned about her sodium being low. The patient is on a fluid restricted diet. There has been no fever, no cough or congestion. She has no chest pain or abdominal pain. There may be some subtle neck soreness but mostly, she complains of a headache and some right hip discomfort. She is in a stiff collar. PMHx/PSHx/Social Hx: See Below PHYSICAL EXAM: GENERAL: Patient is in no acute distress. HEENT: Mucous membranes moist, no obvious facial trauma. The patient has a 1 cm mid posterior scalp laceration. No active bleeding. NECK: No stridor, no adenopathy, stiff collar in place, trachea is midline. LUNGS: Clear to auscultation bilaterally, no wheeze, no rhonchi, breath sounds equal. HEART: Without murmurs gallops or rubs, regular rate and rhythm. ABDOMEN: Soft, nontender, no peritonitis. EXTREMITIES: No cyanosis, there is no gross deformity to the right lower extremity, she is tender to palpate the right lateral hip. No contusions seen. NEUROLOGIC: Oriented x 3, no acute motor or sensory deficits, no focal weakness. SKIN: No jaundice, no diaphoresis. DIFFERENTIAL DIAGNOSIS: Intracranial bleeding, electrolyte imbalance, dehydration, UTI, dysrhythmia, cervical spine fracture, hip fracture, among others. EMERGENCY DEPARTMENT PROCEDURES: Laceration repair: This procedure was performed by me. The wound was prepped and draped in sterile fashion. The area was anesthetized with LET gel. Using saline it was cleansed thoroughly. No foreign debris was noted. The wound was visualized and explored to its deepest regions. There was no nervous, deep structure, or tendon involvement. Using sterile technique the wound was closed. There were no complications. The area was then dressed. The patient tolerated the procedure well. Number of sofía: 2 MEDICAL DECISION MAKING: There is no leukocytosis. The patient is mildly anemic with a hemoglobin of 11.3. There is a normal platelet count. Sodium is low at 130. The patient does carry a history of hyponatremia however, this was less than her typical values. There was no renal failure. No concerning liver enzyme elevation. The patient appeared to be in a euthyroid state. Urinalysis did not show findings of infection. ECG showed a normal sinus rhythm, no acute ST elevation. Cardiac enzyme testing x 1 was not consistent with acute cardiac injury. Chest x-ray does not show pneumonia or pneumothorax. A right hip film did not show any obvious fracture but a CT was recommended to be more certain. CT of the right hip was performed, no fracture was seen. A brain CT was done, there was no acute bleed or mass effect. CT of the C-spine did not show any acute fracture. The patient did receive IV saline, 1 L in total. She was given IV Tylenol for pain. The patient's caregiver and the patient's son were uncomfortable with the patient being discharged. She had fallen a few times because of weakness. There was concern for eventual serious traumatic injury. I did speak with case management, the on-call hospitalist was consulted. Of note, the patient's scalp laceration was repaired without difficulty, please see the above procedure note. Prior/Outside records/notes reviewed: Orthopedic note from 08/15/2023 discussing her knee arthritis and right rotator cuff tear. ECG per my interpretation: Indication was fall. The ECG shows a normal sinus rhythm with a rate of 91. There is no ST elevation, no PVCs. There is some baseline artifact. The QTc is 457. Continuous Cardiac Monitoring per my interpretation: An order was placed for continuous cardiac monitoring. The monitor shows a rate of 99 with normal sinus rhythm. Imaging/x-ray results per my interpretation: Chest x-ray does not show CHF or pneumonia. Right hip and pelvis films were performed, no obvious fracture, no bony dislocation. Chronic Medical/Social conditions affecting care: Advanced age. Care/Management discussed with: Case management, the on-call hospitalist. Level of care consideration(s): After review of the information above and other included data: --I believe the patient requires escalation of care to admission DISPOSITION: Admission Past Med/Surg History Medical History Right rotator cuff tear Degenerative arthritis of knee, bilateral Contusion of left knee Left knee DJD Fracture of metacarpal of left hand, closed Right rotator cuff tear arthropathy Bilateral primary osteoarthritis of knee DVT prophylaxis Thrombocytosis Hypochloremia Acute hyponatremia Cervical spinal stenosis Cervical radiculopathy HTN (hypertension) Osteoarthritis of knees, bilateral Unsteady gait Type 2 diabetes mellitus with albuminuria Spondylolisthesis, acquired Skin abnormality Signs and symptoms involving cognition Osteoporosis Numbness of left foot Glaucoma Esophageal reflux Dyslipidemia Disc degeneration, lumbosacral Colon cancer screening Hypothyroid Surgical History History of tubal ligation Family History Sister Breast cancer Father Myocardial infarction Other No pertinent family history Denies family history of Colon cancer Ovarian cancer Prostate cancer Social History Smoking Status: Never smoker Do You Dip or Chew Tobacco: No; Hx Alcohol Use: No Hx Substance Use: No Preferred Language: Telugu Communication Ability: Effective Visual Impairment: No Limitations Hearing Ability: Normal Tire Curer Required: No Beliefs That Will Affect Care: None marital status: Current Living Situation: Spouse and Other Current Living Situation Comment: HOME HEALTH AIDE Feels Safe at Home: Yes Seatbelt Use: always Assistive Devices: Walker Allergies Allergies Allergy/AdvReac Type Severity Reaction Status Date / Time salicylates Allergy Severe HIVES Verified 04/15/22 08:16 monosodium glutamate Allergy Mild Verified 04/15/22 08:16 Penicillins Allergy Mild Verified 04/15/22 08:16 Sulfa (Sulfonamide Allergy Mild Verified 04/15/22 08:16 Antibiotics) alendronate sodium Allergy Unknown UNKNOWN Verified 04/15/22 08:16 Home Meds Home Medications Medication Instructions Recorded Confirmed ascorbic acid (vitamin C) 500 mg 500 mg PO DAILY 06/23/19 09/25/23 tablet cholecalciferol (vitamin D3) 50 2,000 units PO DAILY 06/23/19 09/25/23 mcg (2,000 unit) tablet travoprost 0.004 % eye drops 1 drops ophthalmic (eye) QPM #3 mL 06/23/19 09/25/23 diclofenac sodium 1 % topical gel 1 ea topical QID PRN Other 08/07/20 09/25/23 sodium chloride 1 gram tablet 1 g PO DAILY 10/02/20 09/25/23 calcium carbonate 600 mg-vitamin 1 tab PO DAILY 03/21/21 09/25/23 D3 5 mcg (200 unit) tablet coenzyme Q10 100 mg capsule 100 mg PO DAILY 03/21/21 09/25/23 (CoQ-10) duloxetine 60 mg capsule,delayed 60 mg PO HS 03/21/21 09/25/23 release metformin 500 mg tablet,extended 1,000 mg PO BID 03/21/21 09/25/23 release 24 hr B12 1 tab PO DAILY 09/25/23 09/25/23 cyanocobalamin (vitamin B-12) 1,000 mcg IM MONTHLY 09/25/23 09/25/23 1,000 mcg/mL injection kit dulaglutide 0.75 mg/0.5 mL 0.75 mg subcut .Mondays09/25/23 09/25/23 subcutaneous pen injector (Trulicity) iron glycinate,polysacch cmplx 1 tab PO . ,,Fri09/25/23 09/25/23 magnesium 1 tab PO . FRI,FRI,Fri09/25/23 09/25/23 rosuvastatin 5 mg tablet 5 mg PO . FRI, FRI, Friday09/25/23 09/25/23 Previous Rx's Medication Instructions Recorded levothyroxine 25 mcg tablet 25 mcg PO DAILY #90 tabs 09/03/22 (Synthroid) Results & Data (ED) Vital Signs Vital Signs - 24 hr 09/25/23 10:59 09/25/23 12:05 09/25/23 12:08 Temperature 37.1 C Temperature Source Temporal Artery Scan Pulse Rate 99 H 90 Pulse Rate [Finger] 94 H Pulse Rhythm [Finger] Regular Respiratory Rate 17 18 Respiratory Effort / Characteristics Non-Labored Spontaneous Non-Labored Spontaneous Respiratory Depth Normal Normal Respiratory Pattern Regular Blood Pressure 154/84 H Blood Pressure [Right Arm] 190/98 H Blood Pressure Mean 107 Blood Pressure Mean [Right Arm] 128 Blood Pressure Position [Right Arm] Lying Pulse Oximetry 99 99 Oxygen Delivery Method Room Air Room Air Sepsis Recent Fever Within 48 Hours No Sepsis New/Unexplained Change in Mental Status No Sepsis Action Taken by Nursing No Action Required 09/25/23 13:57 09/25/23 16:29 09/25/23 17:21 Temperature Temperature Source Pulse Rate 88 Pulse Rate [Finger] 86 88 Pulse Rhythm [Finger] Regular Respiratory Rate 18 18 Respiratory Effort / Characteristics Non-Labored Spontaneous Respiratory Depth Normal Respiratory Pattern Regular Blood Pressure Blood Pressure [Right Arm] 165/89 H Blood Pressure Mean Blood Pressure Mean [Right Arm] 114 Blood Pressure Position [Right Arm] Sitting Pulse Oximetry 97 98 Oxygen Delivery Method Room Air Room Air Sepsis Recent Fever Within 48 Hours Sepsis New/Unexplained Change in Mental Status Sepsis Action Taken by Longterm Medications Current Medication List: was personally reviewed by me Laboratory Data Attestation: I reviewed the patient's lab results. 09/25/23 11:45 09/25/23 13:10 Lab Results 09/25/23 09/25/23 09/25/23 Range/Units 11:45 11:48 12:16 WBC 10.15 (4.8-10.8) K/ul RBC 4.09 L (4.20-5.40) M/uL Hgb 11.3 L (12.0-16.0) g/dl Hct 33.8 L (37.0-47.0) % MCV 82.6 (80.0-100.0) fL MCH 27.6 (25.0-34.0) pg MCHC 33.4 (32.0-36.0) g/dL RDW Std Deviation 40.5 (36.4-46.3) fL RDW Coeff of Maddie 13.7 (11.5-14.5) % Plt Count 329 (130-400) K/uL MPV 9.6 (9.4-12.4) fL Immature Gran % (Auto) 0.4 % Neut % (Auto) 69.4 % Lymph % (Auto) 20.2 % [place] % (Auto) 6.9 % Eos % (Auto) 2.4 % Baso % (Auto) 0.7 % Neut # (Auto) 7.05 H (1.40-6.50) K/uL Lymph # (Auto) 2.05 (1.20-3.40) K/uL [place] # (Auto) 0.70 H (0.11-0.59) K/uL Eos # (Auto) 0.24 (0.00-0.50) K/uL Baso # (Auto) 0.07 (0.00-0.20) K/uL Immature Gran # (Auto) 0.04 (0.01-0.20) K/uL Sodium 130 L (136-145) mmol/L Potassium TNP Chloride 98 (98-107) mmol/L Carbon Dioxide 24 (21-32) mmol/L Anion Gap 8 (3-11) BUN 15 (6-23) mg/dl Creatinine 0.59 L (0.6-1.2) mg/dl Est Cr Clr Drug Dosing Not Reportable Est GFR ( Amer) 96.9 ml/min Est GFR (Non-Af Amer) 83.6 ml/min BUN/Creatinine Ratio 25.4 H (10-20) Glucose 156 H (70-99(Fasting)) mg/dl Calcium 9.5 (8.6-10.3) mg/dl Magnesium 1.9 (1.7-2.4) mg/dl Total Bilirubin 0.6 (0.2-1.0) mg/dl AST TNP ALT 15 (7-52) U/L Alkaline Phosphatase 58 (34-104) U/L Troponin I High Sens 5.6 (0-14) pg/ml Total Protein 7.4 (6.0-8.3) gm/dl Albumin 4.5 (3.4-5.0) gm/dl Globulin 2.9 (2.5-4.0) gm/dl Albumin/Globulin Ratio 1.6 (0.9-2) TSH 2.977 (0.300-4.500) uIu/ml Urine Color Yellow Urine Appearance Clear (Clear) Urine pH 7.0 (4.5-7.5) Ur Specific [place] 1.006 (1.000-1.030) Urine Protein Negative (Negative) Urine Glucose (UA) Negative (Negative) Urine Ketones Negative (Negative) Urine Blood Negative (Negative) Urine Nitrite Negative (Negative) Urine Bilirubin Negative (Negative) Urine Urobilinogen Negative (Negative) Ur Leukocyte Esterase Trace H (Negative) Urine WBC (Auto) 1-5 (0-5) /hpf Urine RBC (Auto) 0-4 (0-4) /hpf U Hyaline Cast (Auto) 0 (0-5) /lpf U Epithel Cells (Auto) 0-5 (0-5) /lpf Urine Bacteria (Auto) Negative (Negative) 09/25/23 Range/Units 13:10 WBC (4.8-10.8) K/ul RBC (4.20-5.40) M/uL Hgb (12.0-16.0) g/dl Hct (37.0-47.0) % MCV (80.0-100.0) fL MCH (25.0-34.0) pg MCHC (32.0-36.0) g/dL RDW Std Deviation (36.4-46.3) fL RDW Coeff of Maddie (11.5-14.5) % Plt Count (130-400) K/uL MPV (9.4-12.4) fL Immature Gran % (Auto) % Neut % (Auto) % Lymph % (Auto) % [place] % (Auto) % Eos % (Auto) % Baso % (Auto) % Neut # (Auto) (1.40-6.50) K/uL Lymph # (Auto) (1.20-3.40) K/uL [place] # (Auto) (0.11-0.59) K/uL Eos # (Auto) (0.00-0.50) K/uL Baso # (Auto) (0.00-0.20) K/uL Immature Gran # (Auto) (0.01-0.20) K/uL Sodium (136-145) mmol/L Potassium 4.5 Chloride (98-107) mmol/L Carbon Dioxide (21-32) mmol/L Anion Gap (3-11) BUN (6-23) mg/dl Creatinine (0.6-1.2) mg/dl Est Cr Clr Drug Dosing Est GFR ( Amer) ml/min Est GFR (Non-Af Amer) ml/min BUN/Creatinine Ratio (10-20) Glucose (70-99(Fasting)) mg/dl Calcium (8.6-10.3) mg/dl Magnesium (1.7-2.4) mg/dl Total Bilirubin (0.2-1.0) mg/dl AST 19 ALT (7-52) U/L Alkaline Phosphatase (34-104) U/L Troponin I High Sens (0-14) pg/ml Total Protein (6.0-8.3) gm/dl Albumin (3.4-5.0) gm/dl Globulin (2.5-4.0) gm/dl Albumin/Globulin Ratio (0.9-2) TSH (0.300-4.500) uIu/ml Urine Color Urine Appearance (Clear) Urine pH (4.5-7.5) Ur Specific [place] (1.000-1.030) Urine Protein (Negative) Urine Glucose (UA) (Negative) Urine Ketones (Negative) Urine Blood (Negative) Urine Nitrite (Negative) Urine Bilirubin (Negative) Urine Urobilinogen (Negative) Ur Leukocyte Esterase (Negative) Urine WBC (Auto) (0-5) /hpf Urine RBC (Auto) (0-4) /hpf U Hyaline Cast (Auto) (0-5) /lpf U Epithel Cells (Auto) (0-5) /lpf Urine Bacteria (Auto) (Negative) Administered Medications Discontinued Medications Sodium Chloride (Nss) 500 mls @ 999 mls/hr IV .Q31M LOGAN Stop: 09/25/23 12:15 Last Infusion: 09/25/23 12:47 Dose: Infused Documented By: Admin: 09/25/23 11:58 Dose: 999 mls/hr Documented By: CLIFFORD Acetaminophen (Ofirmev) 1,000 mg in 100 mls @ 400 mls/hr IV NOW STA Stop: 09/25/23 12:15 Last Infusion: 09/25/23 12:46 Dose: Infused Documented By: Admin: 09/25/23 12:15 Dose: 400 mls/hr Documented By: CLIFFORD Sodium Chloride (Nss) 500 mls @ 999 mls/hr IV .Q31M ONE Stop: 09/25/23 13:44 Last Infusion: 09/25/23 14:28 Dose: Infused Documented By: Admin: 09/25/23 13:50 Dose: 999 mls/hr Documented By: CLIFFORD Lidocaine (Lidocaine/Epineph/Tetracaine 1 Ea Syr) 1 each EXT NOW STA Stop: 09/25/23 15:27 Last Admin: 09/25/23 16:08 Dose: 1 each Documented By: ETTA Lidocaine HCl (Xylocaine 1%/Sod Bicarb 20 Ml Vial) 20 ml INFIL NOW ONE Stop: 09/25/23 15:27 Last Admin: 09/25/23 17:12 Dose: 20 ml Documented By: ETTA Imaging Data Radiologist's Impression: Cervical Spine CT 09/25/23 11:[address] DOSE: 933.99 mGy.cm HISTORY: fall, neck pain TECHNIQUE: Multiaxial CT images of the cervical spine were performed and reformatted in the sagittal and coronal plane without the use of contrast. A dose lowering technique was utilized adhering to the principles of ALARA. COMPARISON: None. FINDINGS: No fractures. No subluxation. Prevertebral soft tissues and the C1-C2 interval are intact. No pneumothorax. Severe disc space narrowing with straightening of the cervical spine. IMPRESSION: No fractures within the cervical spine. ACT 112: Negative or not required by law. Electronically signed by: Cheng Diaz M.D. 09/25/2023 1:31 PM Chest X-Ray 09/25/23 11:45 XR chest 1V portable HISTORY: weakness COMPARISON: Chest 05/20/2022. FINDINGS: No focal lung consolidations to suggest pneumonia. No evidence for pulmonary edema. No pleural effusions. No pneumothorax. The heart is normal in size. There are calcifications within the aortic knob. Advanced degenerative changes again noted within shoulders. There are old, healed right-sided rib fractures. IMPRESSION: No acute process. ACT 112: Negative or not required by law. Electronically signed by: Cheng Diaz M.D. 09/25/2023 2:41 PM Hip/Pelvis X-Ray 09/25/23 11:45 XR hip RT 2V w pelvis CLINICAL HISTORY: Right hip pain following fall. COMPARISON: Pelvis radiograph May 20, 2022. FINDINGS: Sacroiliac joints and symphysis pubis are intact. Irregularity of the greater trochanter of the left femur represents a chronic fracture. There is slight foreshortening of the right femoral neck. This may be technical. No definite fracture is identified. IMPRESSION: Foreshortening of the right femoral neck. This is likely technical however an impacted right femoral neck fracture cannot be completely excluded. A CT of the right hip is recommended. ACT 112: Negative or not required by law. Electronically signed by: Robert Amaral M.D. 09/25/2023 2:[address] 09/25/23 11:46 CT head/brain wo con CLINICAL HISTORY: fall, hit head Technique: Contiguous axial CT images of the head were acquired from the base of the skull to the vertex without intravenous contrast administration. Images were viewed in brain, subdural and bone windows. Automated dose lowering techniques and/or adjustment according to patient size were utilized for this exam. Comparison: Comparison is made to CT head 05/20/2022 Findings: Areas of decreased attenuation are present in the periventricular and subcortical white matter bilaterally consistent with small vessel ischemic disease. Generalized cerebral atrophy with commensurate enlargement of the ventricles, sulci, and cisterns is also present. There is no acute intracranial hemorrhage or evidence of acute territorial infarction. No shift of the midline structures, mass effect, or extra-axial abnormalities are shown. Atherosclerotic calcifications are present in the intracranial segments of the internal carotid arteries. Imaged portions of the paranasal sinuses and mastoid air cells are clear. The orbits appear normal. There are no acute fractures of the calvaria or scalp swelling. Impression: No acute intracranial hemorrhage, no evidence of acute territorial infarction or other acute intracranial disease process. ACT 112: Negative or not required by law. Electronically signed by: Ruslan Dueñas M.D. 09/25/2023 1:[address] 09/25/23 14:27 CT hip RT wo con CLINICAL HISTORY: poss fx TECHNIQUE: Multidetector row helical CT of the right hip was performed without intravenous contrast. Coronal and sagittal reformations were obtained. Automated dose lowering techniques and/or adjustment according to patient size were utilized for this examination. CT DOSE: 191.02 mGy.cm Comparison: Comparison is made to right hip radiograph 11/26/2022 FINDINGS: The osseous structures are without fracture or dislocation. Degenerative changes are seen in the pubic symphysis and right hip joint. No joint effusion is seen. The soft tissues are unremarkable. IMPRESSION: Degenerative changes without evidence of hip fracture. ACT 112: Negative or not required by law. Electronically signed by: Ruslan Dueñas M.D. 09/25/2023 3:55 PM Discharge Plan Visit Data Chief Complaint: Fall Stated Complaint: HEAD LAC, FALL ON PREVIOUSLY BROKEN HIP(R) ED Provider: Jeff Noe Discharge Problem: Weakness, Acute head trauma, Laceration of scalp, Acute hyponatremia Patient Disposition: Admitted As Inpatient Condition: Fair Forms Stand Alone Forms: My [facility] Prescriptions Prescriptions: No Action levothyroxine [Synthroid] 25 mcg tablet 25 mcg PO DAILY Qty: 90 3RF ascorbic acid (vitamin C) 500 mg tablet 500 mg PO DAILY cholecalciferol (vitamin D3) 2,000 unit tablet 2,000 units PO DAILY travoprost 0.004 % drops 1 drops OP QPM Qty: 3 Patient Comments: both eyes diclofenac sodium 1 % gel 1 ea TOPICAL QID PRN (Reason: Other) Rx Instructions: APPLY TO AFFECTED AREA UPPER BACK,SHOULDER FOUR TIMES DAILY. sodium chloride 1 gram Tablet 1 g PO DAILY calcium carbonate-vitamin D3 600 mg(1,500mg) -200 unit Tablet 1 tab PO DAILY Rx Instructions: unknown strength coenzyme Q10 [CoQ-10] 100 mg Capsule 100 mg PO DAILY metformin 500 mg tablet extended release 24 hr 1,000 mg PO BID duloxetine 60 mg capsule,delayed release(DR/EC) 60 mg PO HS B12 1 tab PO DAILY rosuvastatin 5 mg tablet 5 mg PO . FRI, FRI, FRIDAY magnesium Tablet 1 tab PO . FRI,FRI,FRI Trulicity 0.75 mg/0.5 mL pen injector 0.75 mg SUBCUT .MONDAYS iron glycinate,polysacch cmplx 1 tab PO . ,,FRI cyanocobalamin (vitamin B-12) 1,000 mcg/mL kit 1,000 mcg IM MONTHLY Rx Instructions: 100 mcg IM Monthly; Referrals Referrals: Tabitha Hall MD [Primary Care Provider] - Discharge Problem: Acute head trauma Qualifiers: Encounter type: initial encounter Qualified Code(s): S09.90XA - Unspecified injury of head, initial encounter Laceration of scalp Qualifiers: Encounter type: initial encounter Qualified Code(s): S01.01XA - Laceration without foreign body of scalp, initial encounter
[2023-09-25 12:02] LABS: Basophils # (auto) 0.07 K/uL (0.00-0.20); Basophils % (auto) 0.7 %; Eosinophils # (auto) 0.24 K/uL (0.00-0.50); Eosinophils % (auto) 2.4 %; Hematocrit (blood only) 33.8 % (37.0-47.0); Hemoglobin 11.3 g/dl (12.0-16.0); Immature Granulocytes # (auto) 0.04 K/uL (0.01-0.20); Immature Granulocytes % (auto) 0.4 %; Lymphocytes # (auto) 2.05 K/uL (1.20-3.40); Lymphocytes % (auto) 20.2 %; Mean Corpuscular Hemoglobin 27.6 pg (25.0-34.0); Mean Corpuscular Hgb Conc 33.4 g/dL (32.0-36.0); Mean Corpuscular Volume 82.6 fL (80.0-100.0); Mean Platelet Volume 9.6 fL (9.4-12.4); Monocytes % (auto) 6.9 %; Neutrophils # (auto) 7.05 K/uL (1.40-6.50); Neutrophils % (auto) 69.4 %; Platelet Count 329 K/uL (130-400); RDW Coefficient of Variation 13.7 % (11.5-14.5); RDW Standard Deviation 40.5 fL (36.4-46.3); Red Blood Count 4.09 M/uL (4.20-5.40); White Blood Count 10.15 K/ul (4.8-10.8)
[2023-09-25 12:29] LABS: Appearance Urine Clear (Clear); Bacteria Urine Automated Negative (Negative); Bilirubin Urine Negative (Negative); Blood Urine Negative (Negative); Cast Urine Automated 0 /lpf (0-5); Color Urine Yellow; Epithelial Cell Urine Auto 0-5 /lpf (0-5); Glucose Urine UA Negative (Negative); Ketones Urine Negative (Negative); Leukocyte Esterase Urine Trace (Negative); Nitrite Urine Negative (Negative); Protein Urine Negative (Negative); RBC Urine Automated 0-4 /hpf (0-4); Specific Gravity Urine 1.006 (1.000-1.030); Urobilinogen Urine Negative (Negative)
[2023-09-25 12:52] LABS: Alanine Aminotransferase 15 U/L (7-52); Albumin Globulin Ratio 1.6 (0.9-2); Albumin Level 4.5 gm/dl (3.4-5.0); Alkaline Phosphatase 58 U/L (34-104); Anion Gap 8 (3-11); BUN Creatinine Ratio 25.4 (10-20); Bilirubin,Total 0.6 mg/dl (0.2-1.0); Blood Urea Nitrogen 15 mg/dl (6-23); Calcium 9.5 mg/dl (8.6-10.3); Carbon Dioxide 24 mmol/L (21-32); Chloride 98 mmol/L (98-107); Est GFR (African American) 96.9 ml/min; Est GFR (Non-African American) 83.6 ml/min; Globulin 2.9 gm/dl (2.5-4.0); Glucose 156 mg/dl (70-99(Fasting)); Magnesium 1.9 mg/dl (1.7-2.4); Sodium 130 mmol/L (136-145); Thyroid Stimulating Hormone 2.977 uIu/ml (0.300-4.500); Total Protein 7.4 gm/dl (6.0-8.3); Troponin I High Sensitivity 5.6 pg/ml (0-14)
[2023-09-25] MEDS ORDERED: SODIUM CHLORIDE 0.9% 500 ML IV ONE (13:14)
--- NOTE | 2023-09-25 13:16 | CT Scan Report ---
CT head/brain wo con CLINICAL HISTORY: fall, hit head Technique: Contiguous axial CT images of the head were acquired from the base of the skull to the rita cat without intravenous contrast administration. Images were viewed in brain, subdural and [facility]. Automated dose lowering techniques and/or adjustment according to patient size were utilized for this exam. Comparison: Comparison is made to CT head 05/20/2022 Findings: Areas of decreased attenuation are present in the periventricular and subcortical white matter bilate rally consistent with small vessel ischemic disease. Generalized cerebral atrophy with commensurate e nlargement of the ventricles, sulci, and cisterns is also present. There is no acute intracranial hem orrhage or evidence of acute territorial infarction. No shift of the midline structures, mass effect, or extra-axial abnormalities are shown. Atherosclerotic calcifications are present in the intracran ial segments of the internal carotid arteries. Imaged portions of the paranasal sinuses and mastoid air cells are clear. The orbits appear normal. There are no acute fractures of the calvaria or scalp swelling. Impression: No acute intracranial hemorrhage, no evidence of acute territorial infarction or other acute intracra nial disease process. ACT 112: Negative or not required by law. Electronically signed by: Ruslan Dueñas M.D. 09/25/2023 1:15 PM
--- NOTE | 2023-09-25 13:32 | CT Scan Report ---
CERVICAL SPINE CT CT DOSE: 933.99 mGy.cm HISTORY: fall, neck pain TECHNIQUE: Multiaxial CT images of the cervical spine were performed and reformatted in the sagittal and coronal plane without the use of contrast. A dose lowering technique was utilized adhering to th e principles of ALARA. COMPARISON: None. FINDINGS: No fractures. No subluxation. Prevertebral soft tissues and the C1-C2 interval are intact. No pneumothorax. Severe disc space narrowing with straightening of the cervical spine. IMPRESSION: No fractures within the cervical spine. ACT 112: Negative or not required by law. Electronically signed by: Cheng Diaz M.D. 09/25/2023 1:31 PM
[2023-09-25 13:37] LABS: Potassium 4.5 mmol/L (3.5-5.1)
--- NOTE | 2023-09-25 14:24 | XRay Report ---
XR hip RT 2V w pelvis CLINICAL HISTORY: Right hip pain following fall. COMPARISON: Pelvis radiograph May 20, 2022. FINDINGS: Sacroiliac joints and symphysis pubis are intact. Irregularity of the greater trochanter o f the left femur represents a chronic fracture. There is slight foreshortening of the right femoral n cem. This may be technical. No definite fracture is identified. IMPRESSION: Foreshortening of the right femoral neck. This is likely technical however an impacted ri ght femoral neck fracture cannot be completely excluded. A CT of the right hip is recommended. ACT 112: Negative or not required by law. Electronically signed by: Robert Amaral M.D. 09/25/2023 2:22 PM
--- NOTE | 2023-09-25 14:42 | XRay Report ---
XR chest 1V portable HISTORY: weakness COMPARISON: Chest 05/20/2022. FINDINGS: No focal lung consolidations to suggest pneumonia. No evidence for pulmonary edema. No pleu ral effusions. No pneumothorax. The heart is normal in size. There are calcifications within the aort ic knob. Advanced degenerative changes again noted within shoulders. There are old, healed right-side d rib fractures. IMPRESSION: No acute process. ACT 112: Negative or not required by law. Electronically signed by: Cheng Diaz M.D. 09/25/2023 2:41 PM
[2023-09-25] MEDS ORDERED: XYLOCAINE 1%/SOD BICARB 20 ML VIAL INFIL ONE (15:26)
[2023-09-25] MEDS ORDERED: LIDOCAINE/EPINEPH/TETRACAINE 1 EA SYR EXT STA (15:26)
--- NOTE | 2023-09-25 15:56 | CT Scan Report ---
CT hip RT wo con CLINICAL HISTORY: poss fx TECHNIQUE: Multidetector row helical CT of the right hip was performed without intravenous contrast. Coronal and sagittal reformations were obtained. Automated dose lowering techniques and/or adjustment according to patient size were utilized for this examination. CT DOSE: 191.02 mGy.cm Comparison: Comparison is made to right hip radiograph 11/26/2022 FINDINGS: The osseous structures are without fracture or dislocation. Degenerative changes are seen in the pubi c symphysis and right hip joint. No joint effusion is seen. The soft tissues are unremarkable. IMPRESSION: Degenerative changes without evidence of hip fracture. ACT 112: Negative or not required by law. Electronically signed by: Ruslan Dueñas M.D. 09/25/2023 3:55 PM
--- OUTSIDE RECORDS SUMMARY | 2023-09-25 17:49 | External Medical Summary | Summary of Care ---
Author Name Unknown Organization [facility] Address [address] [place] [address] Phone [phone] Care Team Providers Care Ammonia Refrigeration Technician Name Role Phone Gregorio Hall MD Primary Care Provider + Reason for Visit * Reason Comments eRx-Medication Refill Encounter Details Date Type Department Care Team (Late st Contact Info) Description 09/25/2023 Refill Pharmacy, [facility] [address] [place] [address] Gregorio Hall MD [address] [place] [address] Controlled type 2 diabetes mellitus with hyperglycemia, without long-term current use of insulin ([facility]) Allergies Active Allergy Reactions Criticality Noted Date Comments Ibuprofen 06/11/2016 Alendronate Sodium 08/13/2016 Celecoxib Nausea/vomiting 12/22/2013 Cheese Flavor 08/27/2013 Monosodium Glutamate 08/13/2016 Penicillin G 06/11/2016 Salicylates Unknown 05/17/2021 Sulfa Antibiotics 06/11/2016 documented as of this encounter (statuses as of 09/25/2023) Medications Medication Sig Dispensed Refills Start Date End Date Status Cholecalciferol 2000 UNITS TABS Take by mouth. 1 daily 0 Active vitamin c (ASCORBIC ACID) 500 MG Tablet Take by mouth. 1 daily 0 Active Diclofenac Sodium 1 % Transdermal GelIndications:DDD (degenerative disc disease), lumbosacral Apply 2 g topically to affected area 4 times a day. Apply locally twice daily at shoulder or affected area. 50 g 3 0 Active CoQ10 100 MG Oral Capsule Take by mouth daily. 0 Active calcium PHOSphate 100 MG/ML OR SUSP 0 Active Travoprost (RENEA Free) 0.004 % Ophthalmic Solution (Travatan Z) Instill 2 Drops into both eyes at bedtime. 1 daily 2.5 mL 2 1 Active Magnesium 250 MG Oral Tablet Take 1 Tablet by mouth in the morning. 0 Active OneTouch Verio Reflect w/Device KitIndications:Cont rolled type 2 diabetes mellitus with hyperglycemia, without long-term current use of insulin ([facility]) Check Blood sugars once daily. 1 Kit 0 2 Active OneTouch Verio In Vitro Strip (Glucose Blood)Indications:C ontrolled type 2 diabetes mellitus with hyperglycemia, without long-term current use of insulin ([facility]) Check Blood sugars once daily. 100 Strip 3 2 Active OneTouch Delica Lancets 33GIndications:Cont rolled type 2 diabetes mellitus with hyperglycemia, without long-term current use of insulin ([facility]) Check Blood sugars once daily. 100 Each 3 2 Active OneTouch Delica Lancing DevIndications:Cont rolled type 2 diabetes mellitus with hyperglycemia, without long-term current use of insulin ([facility]) Check Blood sugars once daily. 1 Each 0 2 Active BD Insulin Syringe 25G X 5/8" 1 ML (Insulin Syringe-Needle U-100)Indications:C ontrolled type 2 diabetes mellitus with hyperglycemia, without long-term current use of insulin ([facility]),Type 2 diabetes mellitus with hemoglobin A1c goal of less than 8.0% ([facility]) Use to inject B-12 injection once a month. 10 Each 1 2 Active Cyanocobalamin 1000 MCG/ML Injection Solution (Cyanocobalamin)Ind ications:B12 deficiency INJECT 1000MCG DIRECTED EVERY 30 DAYS 1 mL 11 3 Active Vitamin B12 100 MCG Oral Tablet Take by mouth. 0 Active Iron Glycinate 29 MG Oral Capsule Take by mouth once a day on Friday, Friday, and Friday only. 0 Active Sodium Chloride 1 GM Oral Tablet Take 1 Tablet by mouth in the morning. 60 Tablet 5 3 Active Levothyroxine Sodium 25 MCG Oral Tablet (Levoxyl)Indication s:Acquired hypothyroidism TAKE ONE TABLET BY MOUTH EVERY DAY FIRST THING IN THE MORNING 90 Tablet 2 3 Active Trulicity 0.75 MG/0.5ML Subcutaneous Solution Pen-injector (Dulaglutide)Indica tions:Controlled type 2 diabetes mellitus with hyperglycemia, without long-term current use of insulin (HCC),Type 2 diabetes mellitus with hemoglobin A1c goal of less than 8.0% (HCC) INJECT 0.75 MG (1 PEN) UNDER THE SKIN ONCE A WEEK 6 mL 3 3 Active Rosuvastatin Calcium 5 MG Oral Tablet (Crestor)Indication s:Hyperlipidemia with target LDL less than 100 TAKE ONE TABLET BY MOUTH EVERY DAY 90 Tablet 1 3 Active DULoxetine HCl 60 MG Oral Capsule Delayed Release Particles (Cymbalta)Indicatio ns:Generalized OA,Recurrent major depressive disorder, in partial remission (HCC) TAKE ONE CAPSULE BY MOUTH EVERY MORNING along with duloxetine 30 mg capsule ( total dose 90mg) ,DO NOT CUT, CRUSH, OR CHEW. 90 Capsule 3 3 Active DULoxetine HCl 30 MG Oral Capsule Delayed Release Particles (Cymbalta) Take 1 Capsule by mouth in the morning. Take along with Duloxetine 60 mg daily, (total dose 90 mg )Do not cut, crush or chew. 30 Capsule 5 3 Active metFORMIN HCl ER 500 MG Oral Tablet Extended Release 24 Hour (Glucophage XR)Indications:Cont rolled type 2 diabetes mellitus with hyperglycemia, without long-term current use of insulin (HCC) TAKE ONE TABLET BY MOUTH TWICE A DAY WITH MORNING AND EVENING MEALS 180 Tablet 3 3 Active metFORMIN HCl ER 500 MG Oral Tablet Extended Release 24 Hour (Glucophage XR)Indications:Cont rolled type 2 diabetes mellitus with hyperglycemia, without long-term current use of insulin (HCC) Take by mouth 1 Tablet 2 times a day with morning and evening meals . 180 Tablet 3 2 09/25/20 23 Discontinued documented as of this encounter (statuses as of 09/25/2023) Active Problems Problem Noted Date Diagnosed Date Recurrent major depressive disorder, in partial remission 10/24/2021 Dislocation closed, finger, subsequent encounter 09/06/2020 Controlled type 2 diabetes m ellitus with hyperglycemia, without long-term current use of insulin 08/17/2020 SIADH (syndrome of inappropriate ADH production) 08/17/2020 DDD (degenerative disc disease), cervical 2019 Senile osteoporosis Diabetes type 2, controlled Generalized OA Hypothyroidism Glaucoma DDD (degenerative disc disease), lumbosacral documented as of this encounter (statuses as of 09/25/2023) Immunizations Name Administration Dates Next Due COVID-19 mRNA, LNP-s, No Pre serve, 2-Dose Series (Moderna) 01/22/2022,06/25/2021,12/01/2020,11/03 COVID-19, mRNA, LNP-s, PF, B ooster, 100mcg/0.5mg (Moderna) 06/17/2022 Covid-19, Mrna, Lnp-s, Pf, B ivalent, 50 Mcg, IM, 12 yrs and above (Moderna) 02/21/2023 Pneumococcal Conjugate Vacc, 13 Valent (Prevnar) 03/21/2015 Pneumococcal Polysaccharide PPV23 (Pneumovax) 06/07/2021,01/07/2018 Seasonal Influenza Virus Vac cine, Unspecified Formulation 06/06/2020,07/29/2019,07/10/2018,07/17,07/13/2016,08/07/2015 Seasonal Influenza, Quadriva lent Hd (Fluzone Hd) 06/12/2023 Seasonal Influenza, Quadriva lent Hd, 65+ Yrs 07/24/2021 Seasonal Influenza, Quadriva lent, No Preserve, IM 07/06/2020 Seasonal Influenza, Split, I IV3, With Preserve, Inj 08/07/2015 Seasonal Influenza, Trivalen t, High Dose, No Preserve, IM 06/06/2020,07/29/2019 TDAP (age 10 and older)(Boostrix) 06/27/2023 TDAP (age 11 and older)(Adacel) 06/03/2012 Varicella Zoster Vaccine (Adult) 10/06/2009 Zoster Vaccine Recombinant (Shingrix) 07/01/2019 ,03/23/2019 documented as of this encounter Social History Tobacco Use Types Packs/Day Years Used Date Smoking Tobacco: Never Smokeless Tobacco: Never Alcohol Use Standard Drinks/Week Comments No 0 (1 standard drink = 0.6 oz pur e alcohol) PHQ-2 Answer Date Recorded PHQ Adult Total Score 0 01/14/2023 Hunger Vital Sign Answer Date Recorded Within the past 12 months, y ou worried that your food would run out before you got the money to buy more. Never true 01/15/20 23 Within the past 12 months, t he food you bought just didn't last and you didn't have money to get more. Never true 01/14/2023 Sex and Gender Information Value Date Recorded Sex Assigned at Female 08/17/2020 3:07 PM EST Gender Identity Female 08/17/2020 3:07 PM EST Sexual Orientation Straight 08/17/2020 3: 07 PM EST Job Start Date Occupation Industry Not on file Not on file Not on file documented as of this encounter Miscellaneous Notes * Telephone Encounter - Robbin Phillips RPh - 09/25/2023 7:39 AM ESTSigned Prescriptions: Disp Refills metFORMIN HCl ER 500 MG Oral Tablet Extend*180 Ta*3 Sig: TAKE ONE TABLET BY MOUTH TWICE A DAY WITH MORNING AND EVENING MEALSAuthorizing Provider: GREGORIO HALL User: ROBBIN SANCHEZ V * Telephone Encounter - Robbin Phillips RPh - 09/25/2023 7:37 AM EST Did you pend patient's preferred pharmacy and medication before forwarding?no Pharmacy: [facility] [id number] Pending Prescriptions: Disp Refills metFORMIN HCl ER 500 MG Oral Tablet Exten*180 Ta*3 Sig: TAKE ONE TABLET BY MOUTH TWICE A DAY WITH MORNING AND EVENING MEALS Last Visit: 06/12/2023 (in office), Visit date not found (telemedicine) Next Visit: 10/15/2023 If no future appointments scheduled, and last appointment is greater than a year ago, please schedule patient for a follow-up appointment Last date the medication was ordered: 07/12/2022 Is this request for a controlled substance?No Urine Drug Screen:No results found for this or any previous visit. Patient Phone Numbers Labs: Lab Results Component Value Date/Time CREAT 0.6 04/07/2023 04:12 PM CREAT 0.5 10/12/2020 10:00 AM POTASSIUM 4.3 04/07/2023 04:12 PM POTASSIUM 4.6 10/12/2020 10:00 AM TSH 4.31 (H) 06/12/2023 09:30 AM TSH 2.35 07/27/2020 09:31 AM LDLCALC 125 06/06/2021 07:59 AM LDLCALC 07/27/2020 09:31 AM Uninterpretable, recommend direct LDL cholesterol testing. LDLDIRECT 58 04/15/2022 07:33 AM LDLDIRECT 116 07/27/2020 09:31 AM ALT 18 04/15/2022 07:33 AM ALT 16 08/17/2020 04:32 PM HGBA1C 7.1 (H) 06/12/2023 09:30 AM HGBA1C 7.0 (H) 04/23/2023 11:05 AM HGBA1C 7.2 (H) 07/27/2020 09:31 AM Robbin Sanchez RPh, CACP, CDE Clinical Pharmacist [facility] 09/25/2023, 7:37 AM documented in this encounter Plan of Treatment Upcoming Encounters Date Type Department Care Team (Late st Contact Info) Description 10/15/2023 8:00 AM EST Office Visit General Internal Medicine [facility] [place] [address] [place] [address] Gregorio Hall MD [address] [place] [address] 10/15/2023 8:40 AM EST Office Visit Pharmacy, [facility] [address] [place] [address] Pharmacist1, [facility] [address] [place], [place] [address] 12/15/2023 8:00 AM EDT Office Visit Neurology [facility] [place] [address] [facility] [place] [address] Alvin Aragon MD [address] [facility] [place] [address] 02/16/2024 2:20 PM EDT Office Visit Nephrology, [facility] [address] [facility] [address] [place], [place] [address] Hill Venegas MD [address] [facility] [place], [place] [address] 08/18/2024 10:00 AM EST Imaging Radiology, [place] [address] [employer] [place] [address] 08/18/2024 10:40 AM EST Office Visit Rheumatology [place] [address] [employer] [place] [address] Agustin Erickson MD [facility] [place], [place] [address] Health Maintenance Due Date Last Done Comments Hepatitis B (1 of 3 - Risk 3-dose series) 1998 COVID-19 Vaccine ( season) 2023 02/21/2023, 06/17/2022, 01/22/2022, Additional history exists HbA1c 12/11/2023 06/12/2023, 04/05, 01/14/2023, Additional history exists Albumin/Creatinine Ratio 01/15/2024 023, 04/15/2022, 11/14/2020 Depression Screening 01/15/2024 01/14/2023 Diabetic Foot Exam 01/15/2024 01/14/2023, 0 06/07/2021, 07/27/2020 Diabetic Eye Exam 02/22/2024 02/21/2023, , 02/28/2017, Additional history exists TSH 06/12/2024 06/12/2023, 01/04, 05/08/2022, Additional history exists DXA Scan 08/07/2024 08/07/2022, 07/31/2020 DTaP,Tdap,and Td Vaccines (3 - Td or Tdap) 06/27/2033 06/27/2023, 06/03/2012 Zoster Vaccines Completed 07/01/2019, 03/06, 10/06/2009 Pneumococcal Vaccine: 65+ Years Completed 06/07/2021, 01/07/2018, 03/21/2015 Influenza Vaccine (FLU shot) Completed 04/2023, 07/24/2021, 07/06/2020, Additional history exists VITAMIN D LEVEL ONCE IN A LIFETIME-USE SMARTSET# [id number] Completed 06/12/2023, 10/24/2021, 08/17/2020, Additional history exists GARDASIL-HPV IMMUNIZATION SERIES Aged Out No longer eligible based on patient's age to complete this topic MENINGOCOCCAL (MENACTRA/MENVEO) Aged Out No longer eligible based on patient's age to complete this topic documented as of this encounter Medical Devices Not on filedocumented as of this encounter Visit Diagnoses Diagnosis Controlled type 2 diabetes mellitus with hyperglycemia, without long-term current use of insulin (HCC) documented in this encounter Advance Directives Documents on File Type Date Recorded Patient Accounts Receivable Clerk Expl anation ANTOINETTE 06/06/2021 ANTOINETTE REESE ORDERS FOR LIFE-SUSTAINING TREATMENT Care Teams Ammonia Refrigeration Technician Relationship Specialty Start Date End Date Gregorio Hall MD [address] [place] [address] PCP - General Internal Medicine 07/27/20 documented as of this encounter
--- OUTSIDE RECORDS SUMMARY | 2023-09-25 17:49 | External Medical Summary | Summary of Care ---
Author Name Unknown Organization [facility] Address [address] [place] [address] Phone [phone] Care Team Providers Care News Library Director Name Role Phone Gregorio Hall MD Primary Care Provider + Reason for Visit * Reason Comments eRx-Medication Refill Encounter Details Date Type Department Care Team (Late st Contact Info) Description 08/08/2023 Refill Pharmacy, [facility] [address] [facility] [place] [address] Gregorio Hall MD 200 [place] [address] Controlled type 2 diabetes mellitus with hyperglycemia, without long-term current use of insulin ([facility]); Type 2 diabetes mellitus with hemoglobin A1c goal of less than 8.0% ([facility]) Allergies Active Allergy Reactions Criticality Noted Date Comments Ibuprofen 06/11/2016 Alendronate Sodium 08/13/2016 Celecoxib Nausea/vomiting 12/22/2013 Cheese Flavor 08/27/2013 Monosodium Glutamate 08/13/2016 Penicillin G 06/11/2016 Salicylates Unknown 05/17/2021 Sulfa Antibiotics 06/11/2016 documented as of this encounter (statuses as of 09/08/2023) Medications Medication Sig Dispensed Refills Start Date [...] shoulder or affected area. 50 g 3 08/17/2020 Active CoQ10 100 MG Oral Capsule Take by mouth daily. 0 Active calcium PHOSphate 100 MG/ML OR SUSP 0 Active Travoprost (RENEA Free) 0.004 % Ophthalmic Solution (Travatan Z) Instill 2 Drops into both eyes at bedtime. 1 daily 2.5 mL 2 06/07/2021 Active Magnesium 250 MG Oral Tablet Take 1 Tablet by mouth in the morning. 0 Active metFORMIN HCl ER 500 MG Oral Tablet Extended Release 24 Hour (Glucophage XR)Indications:Cont rolled type 2 diabetes mellitus with hyperglycemia, without long-term current use of insulin ([facility]) Take by mouth 1 Tablet 2 times a day with morning and evening meals . 180 Tablet 3 07/12/2022 Active [employer] Verio Reflect w/Device KitIndications:Cont rolled type 2 diabetes mellitus with hyperglycemia, without long-term current use of insulin ([facility]) Check Blood sugars once daily. 1 Kit 0 07/12/2022 Active [employer] In Vitro Strip (Glucose Blood)Indications:C ontrolled type 2 diabetes mellitus with hyperglycemia, without long-term current use of insulin ([facility]) Check Blood sugars once daily. 100 Strip 3 07/12/2022 Active [employer] Lancets 33GIndications:Cont rolled type 2 diabetes mellitus with hyperglycemia, without long-term current use of insulin ([facility]) Check Blood sugars once daily. 100 Each 3 07/12/2022 Active OneTouch Delica Lancing DevIndications:Cont rolled type 2 diabetes mellitus with hyperglycemia, without long-term current use of insulin ([facility]) Check Blood sugars once daily. 1 Each 0 07/12/2022 Active BD Insulin Syringe 25G X 5/8" 1 ML (Insulin Syringe-Needle U-100)Indications:C ontrolled type 2 diabetes mellitus with hyperglycemia, without long-term current use of insulin ([facility]),Type 2 diabetes mellitus with hemoglobin A1c goal of less than 8.0% ([facility]) Use to inject B-12 injection once a month. 10 Each 1 08/23/2022 Active Cyanocobalamin 1000 MCG/ML Injection Solution (Cyanocobalamin)Ind ications:B12 deficiency INJECT 1000MCG DIRECTED EVERY 30 DAYS 1 mL 11 11/27/2022 Active Vitamin B12 100 MCG Oral Tablet Take by mouth. 0 Active Iron Glycinate 29 MG Oral Capsule Take by mouth once a day on Friday, Friday, and Friday only. 0 Active Sodium Chloride 1 GM Oral Tablet Take 1 Tablet by mouth in the morning. 60 Tablet 5 04/23/2023 Active DULoxetine HCl 60 MG Oral Capsule Delayed Release Particles (Cymbalta)Indicatio ns:Generalized OA,Recurrent major depressive disorder, in partial remission (HCC) TAKE ONE CAPSULE BY MOUTH EVERY MORNING,DO NOT CUT, CRUSH, OR CHEW. 90 Capsule 2 04/25/2023 Active Levothyroxine Sodium 25 MCG Oral Tablet (Levoxyl)Indication s:Acquired hypothyroidism TAKE ONE TABLET BY MOUTH EVERY DAY FIRST THING IN THE MORNING 90 Tablet 2 05/14/2023 Active Trulicity 0.75 MG/0.5ML Subcutaneous Solution Pen-injector (Dulaglutide)Indica tions:Controlled type 2 diabetes mellitus with hyperglycemia, without long-term current use of insulin (HCC),Type 2 diabetes mellitus with hemoglobin A1c goal of less than 8.0% ([facility]) INJECT 0.75 MG (1 PEN) UNDER THE SKIN ONCE A WEEK 6 mL 3 08/08/2023 Active Dulaglutide 0.75 MG/0.5ML Subcutaneous Solution Pen-injector (Trulicity)Indicati ons:Controlled type 2 diabetes mellitus with hyperglycemia, without long-term current use of insulin (HCC),Type 2 diabetes mellitus with hemoglobin A1c goal of less than 8.0% (HCC) Inject 0.75 mg under the skin once a week. 6 mL 3 08/23/2022 08/08/20 23 Discontinued Rosuvastatin Calcium 5 MG Oral Tablet (Crestor)Indication s:Hyperlipidemia with target LDL less than 100 TAKE ONE TABLET BY MOUTH EVERY DAY 90 Tablet 1 02/19/2023 08/12/20 23 Discontinued documented as of this encounter (statuses as of 09/08/2023) Active Problems Problem Noted Date Diagnosed Date [...] as of this encounter (statuses as of 09/08/2023) Immunizations Name Administration Dates Next Due COVID-19 [...] encounter Miscellaneous Notes * Telephone Encounter - Sandie Vera LPN - 09/08/2023 4:12 PM EST Jennifer Lange from [employer] is calling. States that she received a quantity limit request from the pt to obtain double the amount of pens the pt receives. Pt normal get 4 pens per month and the pt is asking for 8 pens per month. Formulary will pay for 12 pens per 3 month period. Is asking if the pt needs more than 4 a month? [facility] fax #: [phone]. Please advise. * Telephone Encounter - Robbin Phillips RPh - 08/08/2023 7:37 AM EDTSigned Prescriptions: Disp Refills Trulicity 0.75 MG/0.5ML Subcutaneous Solut*6 mL 3 Sig: INJECT 0.75 MG (1 PEN) UNDER THE SKIN ONCE A WEEKAuthorizing Provider: GREGORIO HALL User: ROBBIN SANCHEZ V * Telephone Encounter - Robbin Phillips RPh - 08/08/2023 7:35 AM EDT Did you pend patient's preferred pharmacy and medication before forwarding?no Pharmacy: [facility] [id number] Pending Prescriptions: Disp Refills Trulicity 0.75 MG/0.5ML Subcutaneous Solu*6 mL 3 Sig: INJECT 0.75 MG (1 PEN) UNDER THE SKIN ONCE A WEEK Last Visit: 06/12/2023 (in office), Visit date not found (telemedicine) Next Visit: 10/15/2023 If no future appointments scheduled, and last appointment is greater than a year ago, please schedule patient for a follow-up appointment Last date the medication was ordered: 08/23/22 Is this request for a controlled substance?No [...] CDE Clinical Pharmacist [facility] 08/08/2023, 7:36 AM documented in this encounter Plan of Treatment Upcoming Encounters Date Type Department Care Team (Late st Contact Info) Description 10/15/2023 8:00 AM EST Office Visit General Internal Medicine [facility] [place] [address] [facility] [place] [address] Gregorio Hall MD [address] [facility] [place] [address] 10/15/2023 8:40 AM EST Office Visit Pharmacy, [facility] [place] [address] [facility] [place] [address] Pharmacist1, [facility] [address] [facility] [place] [address] [address] 02/16/2024 2:20 PM EDT Office Visit Nephrology, [facility] [address] [facility] [place] [address] Hill Venegas MD [address] [facility] [place] [address] 08/18/2024 10:00 AM EST Imaging Radiology, [address] [place] [address] 08/18/2024 10:40 AM EST Office Visit Rheumatology [address] [place], [place] [address] Agustin Erickson MD [facility] [employer] [facility] [address] [place], [place] [address] Health Maintenance Due Date Last Done Comments [...] D LEVEL ONCE IN A LIFETIME-USE SMARTSET# [id number] Completed 06/12/2023, 10/24/2021, 08/17/2020, Additional history exists [...] without long-term current use of insulin (HCC) Type 2 diabetes mellitus with hemoglobin A1c goal of less than 8.0% (HCC) documented in this encounter Advance Directives Documents on File Type Date Recorded Patient Senior Examiner Expl anation POLST 06/06/2021 POLST LIANNE REESE ORDERS FOR LIFE-SUSTAINING TREATMENT Care Teams News Library Director Relationship Specialty Start Date End Date Gregorio Hall MD [address] [place], [place] [address] PCP - General Internal Medicine 07/27/20 documented as of this encounter
--- OUTSIDE RECORDS SUMMARY | 2023-09-25 17:49 | External Medical Summary | Summary of Care ---
Author Name Unknown Organization [facility] Address [address] [place] [address] Phone [phone] Care Team Providers Care Assistant Grocery Store Manager Name Role Phone Tabitha Hall MD Primary Care Provider + Reason for Visit * Reason Comments eRx-Medication Refill Encounter Details Date Type Department Care Team (Late st Contact Info) Description 08/08/2023 Refill Pharmacy, [facility] [address] [facility] [place] [address] Tabitha Hall MD 200 [facility] [address] Controlled type 2 diabetes mellitus with hyperglycemia, without long-term current use of insulin ([facility]); Type 2 diabetes mellitus with hemoglobin A1c goal of less than 8.0% ([facility]) Allergies Active Allergy Reactions Criticality Noted Date Comments Ibuprofen 06/11/2016 Alendronate Sodium 08/13/2016 Celecoxib Nausea/vomiting 12/22/2013 Cheese Flavor 08/27/2013 Monosodium Glutamate 08/13/2016 Penicillin G 06/11/2016 Salicylates Unknown 05/17/2021 Sulfa Antibiotics 06/11/2016 documented as of this encounter (statuses as of 09/09/2023) Medications Medication Sig Dispensed Refills Start Date [...] hyperglycemia, without long-term current use of insulin ([facility]) Take by mouth 1 Tablet 2 times a day with morning and evening meals . 180 Tablet 3 07/12/2022 Active [employer] [place] Verio Reflect w/Device KitIndications:Cont rolled type 2 diabetes mellitus with hyperglycemia, without long-term current use of insulin ([facility]) Check Blood sugars once daily. 1 Kit 0 07/12/2022 Active [employer] In Vitro Strip (Glucose Blood)Indications:C ontrolled type 2 diabetes mellitus with hyperglycemia, without long-term current use of insulin ([facility]) Check Blood sugars once daily. 100 Strip 3 07/12/2022 Active [employer] Lancets 33GIndications:Cont rolled type 2 diabetes mellitus with hyperglycemia, without long-term current use of insulin ([facility]) Check Blood sugars once daily. 100 Each 3 07/12/2022 Active OneTouch Delica Lancing DevIndications:Cont rolled type 2 diabetes mellitus with hyperglycemia, without long-term current use of insulin ([facility]) Check Blood sugars once daily. 1 Each 0 07/12/2022 Active BD Insulin Syringe 25G X 5/8" 1 ML (Insulin Syringe-Needle U-100)Indications:C ontrolled type 2 diabetes mellitus with hyperglycemia, without long-term current use of insulin ([facility]),Type 2 diabetes mellitus with hemoglobin A1c goal of less than 8.0% ([facility]) Use to inject B-12 injection once a [...] hemoglobin A1c goal of less than 8.0% ([facility]) INJECT 0.75 MG (1 PEN) UNDER THE [...] as of this encounter (statuses as of 09/09/2023) Active Problems Problem Noted Date Diagnosed Date [...] as of this encounter (statuses as of 09/09/2023) Immunizations Name Administration Dates Next Due COVID-19 [...] Telephone Encounter - Robbin Phillips RPh - 09/09/2023 7:52 AM EST Patient Phone Numbers I received the following question from [employer]: Jennifer Lange from [employer] is calling. States that she received a quantity limit request from the pt to obtain double the amount of pens the pt receives. Pt normal get 4 pens per month and the pt is asking for 8 pens per month. Formulary will pay for 12 pens per 3 month period. Is asking if the pt needs more than 4 a month? [employer] fax #: [phone]. I faxed the prescription to [employer] stating the patient does not need 8 pens a month. I will call the patient and discuss why she is asking for 8 pens/month. Patient is using 4 pens/month. Caregiverwent to pharmcay to get prescription and may have misunderstood the prescription (2ml=4 pens) Robbin Blum. Jaron Sanchez, CACP, CDE Clinical Pharmacist [facility] 09/09/2023, 7:54 AM * Telephone Encounter - Sandie Vera LPN - 09/08/2023 4:12 PM EST Jennifer Lange from [employer] is calling. States that she received a quantity limit request from the pt to obtain double the amount of pens the pt receives. Pt normal get 4 pens per month and the pt is asking for 8 pens per month. Formulary will pay for 12 pens per 3 month period. Is asking if the pt needs more than 4 a month? [employer] fax #: [phone]. Please advise. * Telephone Encounter - Robbin Phillips RPh - 08/08/2023 7:37 AM EDTSigned Prescriptions: Disp Refills Trulicity 0.75 MG/0.5ML Subcutaneous Solut*6 mL 3 Sig: INJECT 0.75 MG (1 PEN) UNDER THE SKIN ONCE A WEEKAuthorizing Provider: TABITHA HALL User: ROBBIN SANCHEZ V * Telephone Encounter - Robbin Phillips RPh - 08/08/2023 7:35 AM EDT Did you pend patient's preferred pharmacy and medication before forwarding?no Pharmacy: [facility] [id number] Pending Prescriptions: Disp Refills Trulicity 0.75 [...] or any previous visit. Patient Phone Numbers [place] [phone] Labs: Lab Results Component Value Date/Time CREAT [...] (H) 07/27/2020 09:31 AM Robbin Sanchez RPh, TRIXIE, CDE Clinical Pharmacist [facility] 08/08/2023, 7:36 AM documented in this encounter Plan of Treatment Upcoming Encounters Date Type Department Care Team (Late st Contact Info) Description 10/15/2023 8:00 AM EST Office Visit General Internal Medicine [facility] [address] [place] [address] Tabitha Hall MD [address] [place] [address] 10/15/2023 8:40 AM EST Office Visit Pharmacy, [facility] [address] [place] [address] [address] Pharmacist1, [facility] [address] [place] [address] 02/16/2024 2:20 PM EDT Office Visit Nephrology, [facility] [address] [place] [address] [address] Hill Venegas MD [address] [place], [place] [address] 08/18/2024 10:00 AM EST Imaging Radiology, [address] [place] [address] 08/18/2024 10:40 AM EST Office Visit Rheumatology [address] [place] [address] Agustin Erickson MD [facility] [employer] [facility] [place], [place] [address] Health Maintenance Due Date Last Done Comments [...] D LEVEL ONCE IN A LIFETIME-USE SMARTSET# [id number] Completed 06/12/2023, 10/24/2021, 08/17/2020, Additional history exists [...] Documents on File Type Date Recorded Patient Applications Support Lead Expl anation POLST 06/06/2021 ANTOINETTE REESE ORDERS FOR LIFE-SUSTAINING TREATMENT Care Teams Assistant Grocery Store Manager Relationship Specialty Start Date End Date Tabitha Hall MD [address] [place] [address] PCP - General Internal Medicine 07/27/20 documented as of this encounter
--- OUTSIDE RECORDS SUMMARY | 2023-09-25 17:49 | External Medical Summary | Summary of Care ---
Author Name Unknown Organization [facility] Address [address] [place] [address] Phone [phone] Care Team Providers Care Hearing Stenographer Name Role Phone Gregorio Hall MD Primary Care Provider + Reason for Visit * Reason Comments eRx-Medication Refill Encounter Details Date Type Department Care Team (Late st Contact Info) Description 08/08/2023 Refill Pharmacy, [facility] [address] [facility] [place] [address] Gregorio Hall MD 200 [place] [address] Controlled type 2 diabetes mellitus with hyperglycemia, without long-term current use of insulin ([facility]); Type 2 diabetes mellitus with hemoglobin A1c goal of less than 8.0% ([facility]) Allergies Active Allergy Reactions Criticality [...] hyperglycemia, without long-term current use of insulin ([facility]) Take by mouth 1 Tablet 2 times a day with morning and evening meals . 180 Tablet 3 07/12/2022 Active [employer] Verio Reflect w/Device KitIndications:Cont rolled type 2 diabetes mellitus with hyperglycemia, without long-term current use of insulin ([facility]) Check Blood sugars once daily. 1 Kit 0 07/12/2022 Active [employer] In Vitro Strip (Glucose Blood)Indications:C ontrolled type 2 diabetes mellitus with hyperglycemia, without long-term current use of insulin ([facility]) Check Blood sugars once daily. 100 Strip 3 07/12/2022 Active [employer] Lancets 33GIndications:Cont rolled type 2 diabetes mellitus with hyperglycemia, without long-term current use of insulin ([facility]) Check Blood sugars once daily. 100 Each 3 07/12/2022 Active OneTouch Delica Lancing DevIndications:Cont rolled type 2 diabetes mellitus with hyperglycemia, without long-term current use of insulin ([facility]) Check Blood sugars once daily. 1 Each 0 07/12/2022 Active BD Insulin Syringe 25G X 5/8" 1 ML (Insulin Syringe-Needle U-100)Indications:C ontrolled type 2 diabetes mellitus with hyperglycemia, without long-term current use of insulin ([facility]),Type 2 diabetes mellitus with hemoglobin A1c goal of less than 8.0% ([facility]) Use to inject B-12 injection [...] hemoglobin A1c goal of less than 8.0% ([facility]) INJECT 0.75 MG (1 PEN) UNDER THE [...] 09/08/2023 4:12 PM EST Jennifer Lange from [facility] is calling. States that she received a quantity limit request from the pt to obtain double the amount of pens the pt receives. Pt normal get 4 pens per month and the pt is asking for 8 pens per month. Formulary will pay for 12 pens per 3 month period. Is asking if the pt needs more than 4 a month? Please advise. * Telephone Encounter - Robbin [...] pharmacy and medication before forwarding?no Pharmacy: [facility] [id number] Pending Prescriptions: Disp Refills Trulicity 0.75 [...] AM EST Office Visit General Internal Medicine [facility] [address] [facility] [place], [place] [address] Gregorio Hall MD [address] [facility] [address] [facility] [place] [address] 10/15/2023 8:40 AM EST Office Visit Pharmacy, [facility] [place] [address] [facility] [place] [address] Pharmacist1, [facility] [address] [facility] [place], [place] [address] 02/16/2024 2:20 PM EDT Office Visit Nephrology, [facility] [address] [facility] [place], [place] [address] Hill Venegas MD [address] [facility] [place], [place] [address] 08/18/2024 10:00 AM EST Imaging Radiology, [address] [place], [place] [address] 08/18/2024 10:40 AM EST Office Visit Rheumatology [address] [place], [place] [address] Agustin Erickson MD [address] [place] [address] [place], [place] [address] Health Maintenance Due Date Last Done Comments [...] D LEVEL ONCE IN A LIFETIME-USE SMARTSET# [id number] Completed 06/12/2023, 10/24/2021, 08/17/2020, Additional history exists [...] Documents on File Type Date Recorded Patient Circuit Board Inspector Expl anation POLST 06/06/2021 POLST LIANNE REESE ORDERS FOR LIFE-SUSTAINING TREATMENT Care Teams Hearing Stenographer Relationship Specialty Start Date End Date Gregorio Hall MD [address] [place], [place] [address] PCP - General Internal Medicine 07/27/20 documented as of this encounter
--- NOTE | 2023-09-25 18:02 | History & Physical Report ---
Date of Service September 25, 2023 Assessment & Plan (1) Acute hyponatremia: (2) Recurrent falls: (3) Laceration of scalp: (4) Type 2 diabetes mellitus: (5) HTN (hypertension): Plan This is an 83-year-old female who has significant past medical history of T2DM, SIADH, hypothyroidism, senile osteoporosis, glaucoma and recurrent major depressive disorder who presents to ED after sustaining a fall. Recurrent falls - per caregiver pt just seems to, "drop" laceration of scalp will further eval to be sure no organic cause of falls obtain echo, carotid doppler orthostatics neuro consult to r/o drop attacks PT/OT 2 sofía placed in posterior scalp SIADH worsened sodium from baseline increase salt tabs to bid FR to 2L will consult nephro as pt follows closely with [facility] T2DM hold metformin, trulicity lantus/novolog per protocol A1C in a.m. chronic/stable, last a1c 7.1 Hypothyroidism chronic, stable continue levothyroxine Dementia Depression mood stable continue cymbalta DVT ppx: SQ lovenox Dispo: tele FULL CODE PCP: Dr. Hall Pt was seen and examined in collaboration with Dr. Aceves, please see addendum A total of 76 was spent coordinating, documenting, and providing care for this patient excluding time spent in the performance of separately billed services. This included personally viewing all current laboratories and imaging studies, medication reconciliation, outpatient chart review, and discussion with specialists. History of Present Illness Primary Care Provider: Tabitha Hall MD This is an 83-year-old female who has significant past medical history of T2DM, SIADH, hypothyroidism, senile osteoporosis, glaucoma and recurrent major depressive disorder who presents to ED after sustaining a fall. Caregiver is at bedside who also helps elicit history. She was standing for a while today when she became dizzy and fell. There was no loss of consciousness but she did strike her head causing a laceration. She did not lose consciousness. Post fall she did complain of some R hip pain. Per caregiver pt has been having frequent falls as of late. Prior falls did not have preceding symptoms, no buckling of knees or pain. She does have SIADH and chronic hyponatremia. Per caregiver pt has been drinking more fluid then advised. Otherwise no recent illness, f/c/s, chest pain, sob, n/v/d, abd pain. Her appetite has been stable. There are no urinary symptoms. She generally does not feel weak. She has been taking medications as prescribe. The caregiver is concerned that maybe her sodium tablets needs increased and they did reach out to their corn cutter operator as they do not have an appt until February. In ED pt remained hemodynamically stable. She did have a small laceration repaired by ED physician with 2 sofía. Allergies Allergy/AdvReac Type Severity Reaction Status Date / Time salicylates Allergy Severe HIVES Verified 04/15/22 08:16 monosodium glutamate Allergy Mild Verified 04/15/22 08:16 Penicillins Allergy Mild Verified 04/15/22 08:16 Sulfa (Sulfonamide Allergy Mild Verified 04/15/22 08:16 Antibiotics) alendronate sodium Allergy Unknown UNKNOWN Verified 04/15/22 08:16 Home Medications Medication Instructions Recorded Confirmed Type ascorbic acid (vitamin C) 500 mg 500 mg PO DAILY 06/23/19 09/25/23 History tablet cholecalciferol (vitamin D3) 50 2,000 units PO DAILY 06/23/19 09/25/23 History mcg (2,000 unit) tablet travoprost 0.004 % eye drops 1 drops ophthalmic (eye) QPM #3 mL 06/23/19 History diclofenac sodium 1 % topical gel 1 ea topical QID PRN Other 08/07/20 09/25/23 History sodium chloride 1 gram tablet 1 g PO DAILY 10/02/20 09/25/23 History calcium carbonate 600 mg-vitamin 1 tab PO DAILY 03/21/21 09/25/23 History D3 5 mcg (200 unit) tablet coenzyme Q10 100 mg capsule 100 mg PO DAILY 03/21/21 09/25/23 History (CoQ-10) duloxetine 60 mg capsule,delayed 60 mg PO HS 03/21/21 09/25/23 History release metformin 500 mg tablet,extended 1,000 mg PO BID 03/21/21 09/25/23 History release 24 hr levothyroxine 25 mcg tablet 25 mcg PO DAILY #90 tabs 09/03/22 09/25/23 Rx (Synthroid) B12 1 tab PO DAILY 09/25/23 09/25/23 History cyanocobalamin (vitamin B-12) 1,000 mcg IM MONTHLY 09/25/23 09/25/23 History 1,000 mcg/mL injection kit dulaglutide 0.75 mg/0.5 mL 0.75 mg subcut .Mondays09/25/23 09/25/23 History subcutaneous pen injector (Trulicity) iron glycinate,polysacch cmplx 1 tab PO . ,,Fri09/25/23 09/25/23 History magnesium 1 tab PO . FRI,FRI,Fri09/25/23 09/25/23 History rosuvastatin 5 mg tablet 5 mg PO . FRI, FRI, Friday09/25/23 09/25/23 History Past Med/Surg History Medical History Right rotator cuff tear Degenerative arthritis of knee, bilateral Contusion of left knee Left knee DJD Fracture of metacarpal of left hand, closed Right rotator cuff tear arthropathy Bilateral primary osteoarthritis of knee DVT prophylaxis Thrombocytosis Hypochloremia Acute hyponatremia Cervical spinal stenosis Cervical radiculopathy HTN (hypertension) Osteoarthritis of knees, bilateral Unsteady gait Type 2 diabetes mellitus with albuminuria Spondylolisthesis, acquired Skin abnormality Signs and symptoms involving cognition Osteoporosis Numbness of left foot Glaucoma Esophageal reflux Dyslipidemia Disc degeneration, lumbosacral Colon cancer screening Hypothyroid Surgical History History of tubal ligation Family History Sister Breast cancer Father Myocardial infarction Other No pertinent family history Denies family history of Colon cancer Ovarian cancer Prostate cancer Social History Smoking Status: Never smoker Do You Dip or Chew Tobacco: No; Hx Alcohol Use: No Hx Substance Use: No Preferred Language: Amharic Communication Ability: Effective Visual Impairment: No Limitations Hearing Ability: Normal Commissary Assistant Required: No Beliefs That Will Affect Care: None marital status: Current Living Situation: Spouse and Other Current Living Situation Comment: HOME HEALTH AIDE Feels Safe at Home: Yes Seatbelt Use: always Assistive Devices: Walker Review of Systems Review of Systems: All systems reviewed & are unremarkable except as noted in HPI & below Physical Exam Physical Exam: please refer to Dr. Aceves addendum for physical exam findings. Results & Data Results & Data Vital Signs (Past 12 Hours) Vital Signs Temp Pulse Pulse Resp BP BP Pulse Ox 09/25/23 17:21 88 09/25/23 16:29 88 18 98 09/25/23 13:57 86 18 165/89 H 97 09/25/23 12:08 94 H 18 190/98 H 99 09/25/23 12:05 90 09/25/23 10:59 37.1 C 99 H 17 154/84 H 99 O2 Del Method 09/25/23 17:21 09/25/23 16:29 Room Air 09/25/23 13:57 Room Air 09/25/23 12:08 Room Air 09/25/23 12:05 09/25/23 10:59 Room Air Laboratory Results I have independently reviewed and interpreted patient's admitting labs including CBC, CMP, PTT, PT/INR, mag, tsh, UA and troponin. Diagnostic Findings Cervical Spine CT 09/25/23 11:[address] DOSE: 933.99 mGy.cm HISTORY: fall, neck pain TECHNIQUE: Multiaxial CT images of the cervical spine were performed and reformatted in the sagittal and coronal plane without the use of contrast. A dose lowering technique was utilized adhering to the principles of ALARA. COMPARISON: None. FINDINGS: No fractures. No subluxation. Prevertebral soft tissues and the C1-C2 interval are intact. No pneumothorax. Severe disc space narrowing with straightening of the cervical spine. IMPRESSION: No fractures within the cervical spine. ACT 112: Negative or not required by law. Electronically signed by: Cheng Diaz M.D. 09/25/2023 1:31 PM Chest X-Ray 09/25/23 11:45 XR chest 1V portable HISTORY: weakness COMPARISON: Chest 05/20/2022. FINDINGS: No focal lung consolidations to suggest pneumonia. No evidence for pulmonary edema. No pleural effusions. No pneumothorax. The heart is normal in size. There are calcifications within the aortic knob. Advanced degenerative changes again noted within shoulders. There are old, healed right-sided rib fractures. IMPRESSION: No acute process. ACT 112: Negative or not required by law. Electronically signed by: Cheng Diaz M.D. 09/25/2023 2:41 PM Hip/Pelvis X-Ray 09/25/23 11:45 XR hip RT 2V w pelvis CLINICAL HISTORY: Right hip pain following fall. COMPARISON: Pelvis radiograph May 20, 2022. FINDINGS: Sacroiliac joints and symphysis pubis are intact. Irregularity of the greater trochanter of the left femur represents a chronic fracture. There is slight foreshortening of the right femoral neck. This may be technical. No definite fracture is identified. IMPRESSION: Foreshortening of the right femoral neck. This is likely technical however an impacted right femoral neck fracture cannot be completely excluded. A CT of the right hip is recommended. ACT 112: Negative or not required by law. Electronically signed by: Robert Amaral M.D. 09/25/2023 2:[address] 09/25/23 11:46 CT head/brain wo con CLINICAL HISTORY: fall, hit head Technique: Contiguous axial CT images of the head were acquired from the base of the skull to the vertex without intravenous contrast administration. Images were viewed in brain, subdural and bone windows. Automated dose lowering techniques and/or adjustment according to patient size were utilized for this exam. Comparison: Comparison is made to CT head 05/20/2022 Findings: Areas of decreased attenuation are present in the periventricular and subcortical white matter bilaterally consistent with small vessel ischemic disease. Generalized cerebral atrophy with commensurate enlargement of the ventricles, sulci, and cisterns is also present. There is no acute intracranial hemorrhage or evidence of acute territorial infarction. No shift of the midline structures, mass effect, or extra-axial abnormalities are shown. Atherosclerotic calcifications are present in the intracranial segments of the internal carotid arteries. Imaged portions of the paranasal sinuses and mastoid air cells are clear. The orbits appear normal. There are no acute fractures of the calvaria or scalp swelling. Impression: No acute intracranial hemorrhage, no evidence of acute territorial infarction or other acute intracranial disease process. ACT 112: Negative or not required by law. Electronically signed by: Ruslan Dueñas M.D. 09/25/2023 1:[address] 09/25/23 14:27 CT hip RT wo con CLINICAL HISTORY: poss fx TECHNIQUE: Multidetector row helical CT of the right hip was performed without intravenous contrast. Coronal and sagittal reformations were obtained. Automated dose lowering techniques and/or adjustment according to patient size were utilized for this examination. CT DOSE: 191.02 mGy.cm Comparison: Comparison is made to right hip radiograph 11/26/2022 FINDINGS: The osseous structures are without fracture or dislocation. Degenerative changes are seen in the pubic symphysis and right hip joint. No joint effusion is seen. The soft tissues are unremarkable. IMPRESSION: Degenerative changes without evidence of hip fracture. ACT 112: Negative or not required by law. Electronically signed by: Ruslan Dueñas M.D. 09/25/2023 3:55 PM Medications Administered Medication List Discontinued Medications Sodium Chloride (Nss) 500 mls @ 999 mls/hr IV .Q31M LOGAN Stop: 09/25/23 12:15 Last Infusion: 09/25/23 12:47 Dose: Infused Documented By: Admin: 09/25/23 11:58 Dose: 999 mls/hr Documented By: CLIFFORD Acetaminophen (Ofirmev) 1,000 mg in 100 mls @ 400 mls/hr IV NOW STA Stop: 09/25/23 12:15 Last Infusion: 09/25/23 12:46 Dose: Infused Documented By: Admin: 09/25/23 12:15 Dose: 400 mls/hr Documented By: CLIFFORD Sodium Chloride (Nss) 500 mls @ 999 mls/hr IV .Q31M ONE Stop: 09/25/23 13:44 Last Infusion: 09/25/23 14:28 Dose: Infused Documented By: Admin: 09/25/23 13:50 Dose: 999 mls/hr Documented By: CLIFFORD Lidocaine (Lidocaine/Epineph/Tetracaine 1 Ea Syr) 1 each EXT NOW STA Stop: 09/25/23 15:27 Last Admin: 09/25/23 16:08 Dose: 1 each Documented By: ETTA Lidocaine HCl (Xylocaine 1%/Sod Bicarb 20 Ml Vial) 20 ml INFIL NOW ONE Stop: 09/25/23 15:27 Last Admin: 09/25/23 17:12 Dose: 20 ml Documented By: ETTA ECG Rate (beats per minute): 91 Rhythm: normal sinus Additional Comments: I have independently reviewed and interpreted patient's admitting EKG which revealed: 91 nsr, no st or t wave changes COVID-19 Results Results COVID-19 Adm Lab Results: RBC 4.09 M/uL (4.20-5.40) L 09/25/23 WBC 10.15 K/ul (4.8-10.8) 09/25/23 Hgb 11.3 g/dl (12.0-16.0) L 09/25/23 Hct 33.8 % (37.0-47.0) L 09/25/23 Plt Count 329 K/uL (130-400) 09/25/23 Neutrophils (%) (Auto) 69.4 % 09/25/23 Lymphocytes (%) (Auto) 20.2 % 09/25/23 Monocytes # (Auto) 0.70 K/uL (0.11-0.59) H 09/25/23 Eosinophils # (Auto) 0.24 K/uL (0.00-0.50) 09/25/23 Immature Granulocyte % (Auto) 0.4 % 09/25/23 Neutrophils # (Auto) 7.05 K/uL (1.40-6.50) H 09/25/23 Lymphocytes # (Auto) 2.05 K/uL (1.20-3.40) 09/25/23 Monocytes # (Auto) 0.70 K/uL (0.11-0.59) H 09/25/23 Eosinophils # (Auto) 0.24 K/uL (0.00-0.50) 09/25/23 Basophils # (Auto) 0.07 K/uL (0.00-0.20) 09/25/23 Immature Granulocyte # (Auto) 0.04 K/uL (0.01-0.20) 3 Na 130 mmol/L (136-145) L 09/25/23 K 4.5 mmol/L (3.5-5.1) 09/25/23 Cl 98 mmol/L (98-107) 09/25/23 CO2 24 mmol/L (21-32) 09/25/23 Anion Gap 8 (3-11) 09/25/23 BUN 15 mg/dl (6-23) 09/25/23 Creatinine 0.59 mg/dl (0.6-1.2) L 09/25/23 BUN/Creatinine Ratio 25.4 (10-20) H 09/25/23 Glucose Level 156 mg/dl (70-99(Fasting)) H 09/25/23 Ca 9.5 mg/dl (8.6-10.3) 09/25/23 Total Bilirubin 0.6 mg/dl (0.2-1.0) 09/25/23 AST/SGOT 19 U/L (13-39) 09/25/23 ALT/SGPT 15 U/L (7-52) 09/25/23 Alkaline Phosphatase 58 U/L (34-104) 09/25/23 Total Protein 7.4 gm/dl (6.0-8.3) 09/25/23 Albumin 4.5 gm/dl (3.4-5.0) 09/25/23 Globulin 2.9 gm/dl (2.5-4.0) 09/25/23 Albumin/Globulin Ratio 1.6 (0.9-2) 09/25/23 Chest X-Ray 09/25/23 Code Status & VTE Plan Code Status FULL CODE VTE Prophylaxis Plan VTE Prophylaxis will be ordered: Yes Supervising Physician Co-Signing Physician Notes I have seen and discussed the case with the collaborating RICHARDSON. I agree with the above H&P. I have reviewed and confirmed the patients medical history, the findings on physical examination, and the patients diagnosis and treatment plan with Aftab BAI and agree with the information documented. In short, Ms. Kong is an 83 year old woman with past medical history of osteoarthritis/DJD s/p multiple steroid injections, DMTII, prior HTN, and chronic hyponatremia who is admitted due to concern of multiple falls [5] over the course of 2 months. Patient reports notable fatigue, but denies any prodromal symptoms to her falls. She states that she will be standing for sometime, then collapse without warning. Denies any LOC, diaphoresis, pain/weakness in knees--just seems to "drop." Caregiver corroborates story that patient seeming seems fine before collapsing, but after the fall patient reports headache and dizziness. Reports some bilateral "pins and needles" like sensation in BLE. No antihypertensives at home. Recently reduced sodium tablet from 1g BID to daily in april. Also reports loose on fluid restriction. Labs notable for sodium of 130, baseline 133-135. Physical exam GENERAL APPEARANCE: AxOx4, generally well-appearing and frail woman HEENT: laceration repaired right occiput MMM. EOMI, clear conjunctiva, oropharynx clear. NECK: Supple without lymphadenopathy. No stiffness or restricted ROM. HEART: Normal rate and regular rhythm, normal S1/S1, no m/r/g LUNGS: CTAB, moving air well. No crackles or wheezes are heard. ABDOMEN: Soft, nontender, nondistended with good bowel sounds heard. EXTREMITIES: Without cyanosis, clubbing or edema. NEUROLOGICAL: Grossly nonfocal. Alert and oriented, moving all 4 extremities. CN not formally tested but appear grossly intact. Skin: Warm and dry without any rash. Plan #Falls -Unclear whether component of orthostasis (no prodromal symptoms), vasovagal component, cardiogenic, or resultant from peripheral neuropathy -Hyponatremia likely contributing to degree of weakness, but level is not far off baseline, however, will still involve nephrology for input -Will r/o cardiogenic with ECHO, telemetry, carotids -Plan for PT/OT and orthostats (does not appear to be MSK, strength in tact, proprioception intact) - Neurology consult for eval of sudden "drop attacks" without associated LOC #Acute Hyponatremia on chronic SIADH -Resume fluid restriction (stop IV, bolused in ED,) -Increase sodium 1g BID -Nephrology on consult Rest of plan as above (3) Laceration of scalp Encounter type: initial encounter Qualified Code(s): S01.01XA - Laceration without foreign body of scalp, initial encounter
[2023-09-25] MEDS ORDERED: DEXTROSE 50% 50 ML SYRINGE IV PRN (21:34)
[2023-09-25] MEDS ORDERED: MAGNESIUM HYDROXIDE SUSP 30 ML UDC PO PRN (21:34)
[2023-09-25] MEDS ORDERED: GLUCOSE 40% GEL 15 GM TUBE PO PRN (21:34)
[2023-09-25] MEDS ORDERED: ENOXAPARIN INJ 40 MG/0.4 ML SYR SQ SCH (21:34)
[2023-09-25] MEDS ORDERED: DICLOFENAC SOD 1% GEL 100 GM TUBE EXT PRN (21:34)
[2023-09-25] MEDS ORDERED: ALUMINUM/MAGNESIUM SUSP 30 ML UDC PO PRN (21:34)
[2023-09-25] MEDS ORDERED: ONDANSETRON INJ 2 MG/ML 2 ML VIAL IV PRN (21:34)
[2023-09-25] MEDS ORDERED: CARBOHYDRATES FOR HYPOGLYCEMIA PO PRN (21:34)
[2023-09-25] MEDS ORDERED: GLUCAGON FOR INJ 1 MG VIAL SQ PRN (21:34)
[2023-09-25] MEDS ORDERED: GLUCOSE 10 TAB/TUBE PO PRN (21:34)
[2023-09-25] MEDS ORDERED: ACETAMINOPHEN 325 MG TAB PO PRN (21:34)
[2023-09-25] MEDS ORDERED: Patient's HEIGHT &/or WEIGHT Needed STA (21:42)
[2023-09-25] MEDS: DULoxetine HCL 60 MG CAP PO SCH (22:33)
[2023-09-25] MEDS: SODIUM CHLORIDE 1 GM TABLET PO SCH (22:34)
[2023-09-25] MEDS: TRAVOPROST Z 0.004% OPH SOLN 2.5 ML BTL OP SCH (22:34)
[2023-09-25] MEDS: ENOXAPARIN INJ 30 MG/0.3 ML SYR SQ SCH (22:35)
[2023-09-25] MEDS: INSULIN ASPART PER UNIT CHARGE SC SCH (22:35)
[2023-09-25] MEDS: LANTUS PER UNIT CHARGE SQ SCH (22:35)
[2023-09-26] MEDS: LEVOTHYROXINE SODIUM 25 MCG TABLET PO SCH (05:55)
--- NOTE | 2023-09-26 06:57 | Ultrasound Report ---
BILATERAL CAROTID DOPPLER STUDY HISTORY: fall COMPARISON: None. TECHNIQUE: Real-time, grayscale, and color Doppler sonography of the carotid arteries was performed. Imaging reviewed in the transverse and longitudinal planes. All measurements were calculated based on NASCET criteria. FINDINGS: Antegrade flow is seen in the bilateral vertebral arteries. Mild calcified plaque within the bilateral carotid bifurcations. The peak systolic velocity within the right ICA is 54 cm/s. The right systolic ratio is 0.96. The peak systolic velocity within the left ICA is 56 cm/s. The left systolic ratio is 0.8. IMPRESSION: No hemodynamically significant stenosis seen within the carotid arteries. ACT 112: Negative or not required by law. Electronically signed by: Cheng Diaz M.D. 09/26/2023 6:56 AM
[2023-09-26] MEDS: CYANOCOBALAMIN (B-12) 500 MCG TABLET PO SCH (07:47)
[2023-09-26] MEDS: CHOLECALCIFEROL 1,000 UNITS 25 MCG TAB PO SCH (07:47)
[2023-09-26] MEDS: SODIUM CHLORIDE 1 GM TABLET PO SCH ×2 (07:47→20:23)
[2023-09-26] MEDS: ASCORBIC ACID 500 MG TAB PO SCH (07:47)
[2023-09-26] MEDS: INSULIN ASPART PER UNIT CHARGE SC SCH ×4 (08:38→20:22)
[2023-09-26] MEDS: LANTUS PER UNIT CHARGE SQ SCH ×2 (08:38→20:22)
[2023-09-26] MEDS ORDERED: ROSUVASTATIN CALCIUM 5 MG TAB PO SCH (09:00)
[2023-09-26] MEDS ORDERED: NON-FORMULARY MEDICATION (Coenzyme Q10 [Coq-10] 100 mg Capsule) PO SCH (09:00)
[2023-09-26] MEDS ORDERED: MAGNESIUM OXIDE 400 MG TAB PO SCH (09:00)
[2023-09-26 09:01] LABS: Basophils # (auto) 0.07 K/uL (0.00-0.20); Basophils % (auto) 0.8 %; Eosinophils # (auto) 0.27 K/uL (0.00-0.50); Eosinophils % (auto) 3.1 %; Hematocrit (blood only) 36.1 % (37.0-47.0); Hemoglobin 11.8 g/dl (12.0-16.0); Immature Granulocytes # (auto) 0.03 K/uL (0.01-0.20); Immature Granulocytes % (auto) 0.3 %; Lymphocytes % (auto) 24.4 %; Mean Corpuscular Hemoglobin 27.1 pg (25.0-34.0); Mean Corpuscular Hgb Conc 32.7 g/dL (32.0-36.0); Mean Corpuscular Volume 82.8 fL (80.0-100.0); Mean Platelet Volume 10.1 fL (9.4-12.4); Monocytes # (auto) 0.85 K/uL (0.11-0.59); Monocytes % (auto) 9.9 %; Neutrophils # (auto) 5.27 K/uL (1.40-6.50); Neutrophils % (auto) 61.5 %; Platelet Count 355 K/uL (130-400); RDW Coefficient of Variation 13.4 % (11.5-14.5); RDW Standard Deviation 40.7 fL (36.4-46.3); Red Blood Count 4.36 M/uL (4.20-5.40); White Blood Count 8.59 K/ul (4.8-10.8)
[2023-09-26 09:06] LABS: BUN Creatinine Ratio 18.1 (10-20); Calcium 8.9 mg/dl (8.6-10.3); Creatinine Clr Calc Pharmacy 32.7 ml/min; Est GFR (African American) 88.5 ml/min; Est GFR (Non-African American) 76.4 ml/min; Potassium 4.4 mmol/L (3.5-5.1)
[2023-09-26 09:07] LABS: Estimated Average Glucose 174 mg/dl; Hemoglobin A1C 7.7 % (4.5-5.6)
--- NOTE | 2023-09-26 09:22 | Hospitalist Progress Note ---
Date of Service September 26, 2023 Assessment & Plan (1) Acute hyponatremia: (2) Recurrent falls: (3) Laceration of scalp: (4) Type 2 diabetes mellitus: (5) HTN (hypertension): Plan 83-year-old female who has significant past medical history of T2DM, SIADH, hypothyroidism, senile osteoporosis, glaucoma and recurrent major depressive disorder who presents to ED after sustaining a fall. Recurrent falls Scalp laceration 2 sofía placed in posterior scalp Reviewed TTE report. Mild conc LVH, basal septum is thickened and angulated, EF >70%, mild AV sclerosis without significant stenosis, LV wall motion is normal, RV normal in size and function, G1DD Carotid doppler did not show any hemodynamically significant stenosis Reviewed CT/Xrays. No acute fractures. Neuro recs noted. Continue home statin Patient's description of falls seem mechanical and may be related to ambulatory dysfunction and joint issues Encouraged patient to use her walker Will get PT/OT eval Monitor orthostatic vitals SIADH Chronic hyponatremia FR to 2L Discussed with patient's Pickle Maker Dr Venegas He recommends continuing salt tabs 1g bid on discharge Educated patient on fluid restriction T2DM Continue to hold metformin, trulicity Lantus/novolog per protocol HbA1C 7.7 Hypothyroidism Continue levothyroxine Dementia Depression Mood stable Continue cymbalta DVT ppx: SQ lovenox Dispo: tele FULL CODE PCP: Dr. Hall I spent a total of 55 minutes coordinating, documenting and providing care for this patient excluding time spent in performance of separately billed services Admission and Anticipated Discharge Date Admission Date: September 25, 2023 Subjective Patient seen and examined Reports recurrent falls at home Denied any dizziness, palpitation, chest pain or shortness of breath before fall Denied any LOC Reports chronic right shoulder, right hip and bilateral knee pains. She has a walker at home but does not use them Currently denies any other complaints Physical Exam Constitutional: + well hydrated; no acute distress Elderly woman Sofía on scalp laceration on right occipital area Eyes: PERRL, conjunctivae normal, anicteric sclerae ENMT: external ear and nose normal, oropharynx normal Respiratory: normal respiratory effort, lungs clear to auscultation Cardiovascular: Rate/Rhythm: regular rate and regular rhythm S1 S2 Gastrointestinal (Abdomen): normal bowel sounds, soft, nontender, no hepatosplenomegaly Musculoskeletal: No pedal edema Neurologic: PERRL, EOMI, accommodation nl, no face palsy, no dysarthria Psychiatric: A+Ox3, euthymic affect Results & Data Results & Data Vital Signs (Past 12 Hours) Vital Signs Temp Pulse Pulse Resp BP BP Pulse Ox 09/26/23 07:30 36.9 C 92 H 16 121/63 96 09/26/23 04:00 36.7 C 90 18 137/68 96 09/25/23 23:09 88 09/25/23 22:40 36.7 C 88 18 153/81 H 100 09/25/23 22:14 88 09/25/23 21:43 36.4 C L 86 18 130/74 100 O2 Del Method 09/26/23 07:30 Room Air 09/26/23 04:00 Room Air 09/25/23 23:09 09/25/23 22:40 Room Air 09/25/23 22:14 09/25/23 21:43 Room Air Laboratory Results Abnormal lab results 09/25/23 09/26/23 09/26/23 Range/Units 22:31 07:57 08:22 Hgb 11.8 L (12.0-16.0) g/dl Hct 36.1 L (37.0-47.0) % [place] # (Auto) 0.85 H (0.11-0.59) K/uL Sodium 135 L (136-145) mmol/L Glucose 138 H (70-99(Fasting)) mg/dl POC Glucose 120 H 141 H (70-99) mg/dl Hemoglobin A1c 7.7 H (4.5-5.6) % 09/26/23 Range/Units 12:11 Hgb (12.0-16.0) g/dl Hct (37.0-47.0) % [place] # (Auto) (0.11-0.59) K/uL Sodium (136-145) mmol/L Glucose (70-99(Fasting)) mg/dl POC Glucose 102 H (70-99) mg/dl Hemoglobin A1c (4.5-5.6) % (3) Laceration of scalp Encounter type: initial encounter Qualified Code(s): S01.01XA - Laceration without foreign body of scalp, initial encounter
--- NOTE | 2023-09-26 11:17 | Nephrology Consultation ---
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 Her sodium is usually in the low 130s to mid 130s. She presented to the emergency department yesterday because of recurrent falls at home. Does not appear she was lightheaded or dizzy. She has both cane as well as walker at home but does not seem to be using that. As per the caregiver she just seems to fall. She also sustained some scalp laceration which was sutured. Sodium on admission was 130 this morning it is better at 135. Sodium of 130 is not the cause of her recurrent fall and is being investigated as per primary team. she was drinking about 3 glasses of water as well as 3 glasses of tea per day--this is slightly higher than her regular fluid allowance. When she completely follows the fluid limit her sodium is completely normal as an outpatient. She take 1 g of salt tablet daily as an outpatient. She wanted to increase her salt tablet intake to 1 g twice a day which she can do. However she has been told in the past as well as again today the main treatment of her hyponatremia is fluid restriction--- given her tiny body size and her sodium issue she should aim for 1000--1200 mL fluid limit per day but she loves her tea which makes it hard. 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 Her sodium is usually in the low 130s to mid 130s. She presented to the emergency department yesterday because of recurrent falls at home. Does not appear she was lightheaded or dizzy. She has both cane as well as walker at home but does not seem to be using that. As per the caregiver she just seems to fall. She also sustained some scalp laceration which was sutured. Sodium on admission was 130 this morning it is better at 135. She was drinking about 3 glasses of water as well as 3 glasses of tea per day--this is slightly higher than her regular fluid allowance. When she completely follows the fluid limit her sodium is completely normal as an outpatient. She take 1 g of salt tablet daily as an outpatient She has already been seen by physical therapy and has been cleared. She has pending orthostatic checkup for blood pressure as well as cardiac evaluation and neurological evaluation for recurrent falls. Review of system-----other than recurrent falls 12 system reviewed and negative. She does not seem to have any localizing symptoms at this time Physical examination----elderly female who is petite and weighs only 43 kg and only 4 feet and 6 inches tall. Awake alert oriented x 3 normal speech no respiratory distress. Able to give detailed account of her medical problem. Mucous membrane moist Chest bilateral clear to auscultation CVS S1-S2 regular Abdomen is soft and nontender Extremities shows no edema Skin shows no rash Allergies Allergy/AdvReac Type Severity Reaction Status Date / Time salicylates Allergy Severe HIVES Verified 04/15/22 08:16 monosodium glutamate Allergy Mild Verified 04/15/22 08:16 Penicillins Allergy Mild Verified 04/15/22 08:16 Sulfa (Sulfonamide Allergy Mild Verified 04/15/22 08:16 Antibiotics) alendronate sodium Allergy Unknown UNKNOWN Verified 04/15/22 08:16 Home Medications Medication Instructions Recorded Confirmed Type ascorbic acid (vitamin C) 500 mg 500 mg PO DAILY 06/23/19 09/25/23 History tablet cholecalciferol (vitamin D3) 50 2,000 units PO DAILY 06/23/19 09/25/23 History mcg (2,000 unit) tablet travoprost 0.004 % eye drops 1 drops ophthalmic (eye) QPM #3 mL 06/23/19 09/25/23 History diclofenac sodium 1 % topical gel 1 ea topical QID PRN Other 08/07/20 09/25/23 History sodium chloride 1 gram tablet 1 g PO DAILY 10/02/20 09/25/23 History calcium carbonate 600 mg-vitamin 1 tab PO DAILY 03/21/21 09/25/23 History D3 5 mcg (200 unit) tablet coenzyme Q10 100 mg capsule 100 mg PO DAILY 03/21/21 09/25/23 History (CoQ-10) duloxetine 60 mg capsule,delayed 60 mg PO HS 03/21/21 09/25/23 History release metformin 500 mg tablet,extended 1,000 mg PO BID 03/21/21 09/25/23 History release 24 hr levothyroxine 25 mcg tablet 25 mcg PO DAILY #90 tabs 09/03/22 09/25/23 Rx (Synthroid) B12 1 tab PO DAILY 09/25/23 09/25/23 History cyanocobalamin (vitamin B-12) 1,000 mcg IM MONTHLY 09/25/23 09/25/23 History 1,000 mcg/mL injection kit dulaglutide 0.75 mg/0.5 mL 0.75 mg subcut .Mondays09/25/23 09/25/23 History subcutaneous pen injector (Trulicity) iron glycinate,polysacch cmplx 1 tab PO . ,,Fri09/25/23 09/25/23 History magnesium 1 tab PO . FRI,FRI,Fri09/25/23 09/25/23 History rosuvastatin 5 mg tablet 5 mg PO . FRI, FRI, Friday09/25/23 09/25/23 History Patient History Medical History Right rotator cuff tear Degenerative arthritis of knee, bilateral Contusion of left knee Left knee DJD Fracture of metacarpal of left hand, closed Right rotator cuff tear arthropathy Bilateral primary osteoarthritis of knee DVT prophylaxis Thrombocytosis Hypochloremia Acute hyponatremia Cervical spinal stenosis Cervical radiculopathy HTN (hypertension) Osteoarthritis of knees, bilateral Unsteady gait Type 2 diabetes mellitus with albuminuria Spondylolisthesis, acquired Skin abnormality Signs and symptoms involving cognition Osteoporosis Numbness of left foot Glaucoma Esophageal reflux Dyslipidemia Disc degeneration, lumbosacral Colon cancer screening Hypothyroid Surgical History History of tubal ligation Family History Sister Breast cancer Father Myocardial infarction Other No pertinent family history Denies family history of Colon cancer Ovarian cancer Prostate cancer Social History Smoking Status: Never smoker Second Hand Exposure: No; Do You Dip or Chew Tobacco: No; Hx Alcohol Use: No Hx Substance Use: No Preferred Language: Mohawk Communication Ability: Effective Visual Impairment: No Limitations Hearing Ability: Normal 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 Wire 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 Required: No Beliefs That Will Affect Care: None marital status: Current Living Situation: Spouse Current Living Situation Comment: HOME HEALTH AIDE Other Information That Helps Us Care for You: No Feels Safe at Home: Yes Safety Concerns: Feels Safe At This Time Seatbelt Use: always Assistive Devices: Glasses Results & Data Vital Signs (Past 12 Hours) Vital Signs Temp Pulse Pulse Resp BP BP Pulse Ox 09/26/23 09:24 116 H 09/26/23 07:30 36.9 C 92 H 16 121/63 96 09/26/23 04:00 36.7 C 90 18 137/68 96 O2 Del Method 09/26/23 09:24 09/26/23 07:30 Room Air 09/26/23 04:00 Room Air Laboratory Results Reviewed (2) Laceration of scalp Encounter type: initial encounter Qualified Code(s): S01.01XA - Laceration without foreign body of scalp, initial encounter
--- NOTE | 2023-09-26 12:53 | Neurology Consultation ---
Date of Consultation September 26, 2023 Assessment & Plan (1) Loss of consciousness: Episodes of loss of consciousness , suspected to be ralted to hemodynamic events , less likely seizures( very low suspicion) DD Autonomic dysregulation with orthostatic drops or blood pressure , vs arrtyhtmias Plan Reviewed Doppler scans and it shows antegrade flow of both vertebral arteries and some plaque build up of carotids recommend aspirin and statins for stroke prevention . Recommend orthostatic blood pressure checks, lying, sitting and standing , Q shift to further determine Cardiac monitoring / echo The patient was advised to keep good hydration and electrolyte balance No need for an EEG Telehealth Consultation Telehealth Information Telehealth Information: I performed this visit using a real-time telehealth connection between my location and the patients location ([facility]). After connecting through interactive tele-video, patient was identified by name and date of and/or wristband check.Patient (or authorized healthcare small business sales representative) was informed that this was a telemedicine visit and it was being conducted confidentially over secure lines. My office door was closed and no one else was present in the room with me.Patient (or authorized healthcare small business sales representative) provided consent to proceed with the visit, expressed an understanding of privacy and security of the telemedicine visit, and gave permission to have a hospital small business sales representative in the room in order to assist with the visit and to conduct portions of the visit, as needed. I informed the patient (or authorized healthcare small business sales representative) that I reviewed their record and presented the opportunity for them to ask any questions regarding the visit today. The patient agreed to participate. History of Present Illness Reason for Consultation: Frequent falls Requesting Physician: li Daniel Attending Physician: Li Dent MD History of Present Illness Lilibeth Kurtz is a 83-year-old female patient with a PMH of of T2DM, SIADH, hypothyroidism, senile osteoporosis, glaucoma and recurrent major depressive disorder who presents to ED after sustaining a fall. Neurology was consulted for evaluation of frequent falls. She reports having about 4 falls , with loss of consciousness. She had her first event in COVID times , 2 years ago , she was tired and was not feeling well, she had just finished a bowel movement and walked into the corridor and lost consciousness and fell. she remained there for 5-10 minutes then she wok up and was able to help herself up . the next time it happened it was 3 months ago when she was going upstairs , she reached the top and lost consciousness for few minutes, another time it happened when she was sitting and a friend came over as a surprise ,she got up took about 5 steps and lost consciousness for seconds to a minute , the 4rth time it happened when she has gotten out of the shower and was standing at the kitchen island , she had guests and took few steps walking towards them and fell . Allergies Allergy/AdvReac Type Severity Reaction Status Date / Time salicylates Allergy Severe HIVES Verified 04/15/22 08:16 monosodium glutamate Allergy Mild Verified 04/15/22 08:16 Penicillins Allergy Mild Verified 04/15/22 08:16 Sulfa (Sulfonamide Allergy Mild Verified 04/15/22 08:16 Antibiotics) alendronate sodium Allergy Unknown UNKNOWN Verified 04/15/22 08:16 Home Medications Medication Instructions Recorded Confirmed Type ascorbic acid (vitamin C) 500 mg 500 mg PO DAILY 06/23/19 09/25/23 History tablet cholecalciferol (vitamin D3) 50 2,000 units PO DAILY 06/23/19 09/25/23 History mcg (2,000 unit) tablet travoprost 0.004 % eye drops 1 drops ophthalmic (eye) QPM #3 mL 06/23/19 09/25/23 History diclofenac sodium 1 % topical gel 1 ea topical QID PRN Other 08/07/20 09/25/23 History sodium chloride 1 gram tablet 1 g PO DAILY 10/02/20 09/25/23 History calcium carbonate 600 mg-vitamin 1 tab PO DAILY 03/21/21 09/25/23 History D3 5 mcg (200 unit) tablet coenzyme Q10 100 mg capsule 100 mg PO DAILY 03/21/21 09/25/23 History (CoQ-10) duloxetine 60 mg capsule,delayed 60 mg PO HS 03/21/21 09/25/23 History release metformin 500 mg tablet,extended 1,000 mg PO BID 03/21/21 09/25/23 History release 24 hr levothyroxine 25 mcg tablet 25 mcg PO DAILY #90 tabs 09/03/22 09/25/23 Rx (Synthroid) B12 1 tab PO DAILY 09/25/23 09/25/23 History cyanocobalamin (vitamin B-12) 1,000 mcg IM MONTHLY 09/25/23 09/25/23 History 1,000 mcg/mL injection kit dulaglutide 0.75 mg/0.5 mL 0.75 mg subcut .Mondays09/25/23 09/25/23 History subcutaneous pen injector (Trulicity) iron glycinate,polysacch cmplx 1 tab PO . ,,Fri09/25/23 09/25/23 History magnesium 1 tab PO . FRI,FRI,Fri09/25/23 09/25/23 History rosuvastatin 5 mg tablet 5 mg PO . FRI, FRI, Friday09/25/23 09/25/23 History Patient History Medical History Right rotator cuff tear Degenerative arthritis of knee, bilateral Contusion of left knee Left knee DJD Fracture of metacarpal of left hand, closed Right rotator cuff tear arthropathy Bilateral primary osteoarthritis of knee DVT prophylaxis Thrombocytosis Hypochloremia Acute hyponatremia Cervical spinal stenosis Cervical radiculopathy HTN (hypertension) Osteoarthritis of knees, bilateral Unsteady gait Type 2 diabetes mellitus with albuminuria Spondylolisthesis, acquired Skin abnormality Signs and symptoms involving cognition Osteoporosis Numbness of left foot Glaucoma Esophageal reflux Dyslipidemia Disc degeneration, lumbosacral Colon cancer screening Hypothyroid Surgical History History of tubal ligation Family History Sister Breast cancer Father Myocardial infarction Other No pertinent family history Denies family history of Colon cancer Ovarian cancer Prostate cancer Social History Smoking Status: Never smoker Second Hand Exposure: No; Do You Dip or Chew Tobacco: No; Hx Alcohol Use: No Hx Substance Use: No Preferred Language: Mohawk Communication Ability: Effective Visual Impairment: No Limitations Hearing Ability: Normal Loan Supervisor Required: No Beliefs That Will Affect Care: None marital status: Current Living Situation: Spouse Current Living Situation Comment: HOME HEALTH AIDE Feels Safe at Home: Yes Seatbelt Use: always Assistive Devices: Cane and Walker Review of Systems Constitutional: Patient denies weight loss, fever, chills, and night sweats Eyes: Patient denies change in vision, tearing, pain, and redness ENT: Patient denies pain, bleeding, rhinorrhea, and dysphagia Cardiovascular: Patient denies chest pain, palpitation, dyspnea at rest, and dyspnea with exertion Respiratory: Patient denies shortness of breath, cough, wheezing, and productive cough GI: Patient denies reflux, pain, constipation, and diarrhea Skin: Patient denies rash, dryness, and itching Allergies/Immune System: Patient denies rhinorrhea, seasonal allergies, reaction to current MEDS, and joint swelling Endocrine: Patient denies weight loss, weight gain, temperature intolerance, and excessive thirst Neurological: All negative unless mentioned in the HPI Physical Exam General NEUROLOGIC EXAMINATION: Mental Status:alert, oriented to time, place, person, normal recent memory, normal remote memory, normal attention span, normal concentration, normal language and normal fund of knowledge Cranial Nerves: CN 2 - no visual defect on confrontation and pupils round, equal, reactive to light CN 3, 4, 6 - extra-ocular movements intact and no nystagmus CN 5 - facial sensation intact CN 7 - no facial asymmetry CN 8 - intact hearing CN 9, 10 - palate symmetric, normal gag CN 11 - good shoulder shrug CN 12 - tongue midline MOTOR: Strength was at least antigravity throughout, Pronator drift was absent and There were no abnormal movements SENSATION: intact and symmetric to pinprick, light touch, vibration and joint position GAIT: stable, no ataxia and can perform tandem walking COORDINATION: no ataxia with finger to nose testing and heel to francois testing REFLEXES: cannot assess over telemedicine Results & Data Vital Signs (Past 12 Hours) Vital Signs Temp Pulse Pulse Resp BP BP Pulse Ox 09/26/23 09:24 116 H 09/26/23 07:30 36.9 C 92 H 16 121/63 96 09/26/23 04:00 36.7 C 90 18 137/68 96 O2 Del Method 09/26/23 09:24 09/26/23 07:30 Room Air 09/26/23 04:00 Room Air Laboratory Results Laboratory Results - last 24 hr 09/25/23 09/25/23 09/26/23 13:10 22:31 07:57 WBC 8.59 RBC 4.36 Hgb 11.8 L Hct 36.1 L MCV 82.8 MCH 27.1 MCHC 32.7 RDW Std Deviation 40.7 RDW Coeff of Maddie 13.4 Plt Count 355 MPV 10.1 Immature Gran % (Auto) 0.3 Neut % (Auto) 61.5 Lymph % (Auto) 24.4 Barrow % (Auto) 9.9 Eos % (Auto) 3.1 Baso % (Auto) 0.8 Neut # (Auto) 5.27 Lymph # (Auto) 2.10 [place] # (Auto) 0.85 H Eos # (Auto) 0.27 Baso # (Auto) 0.07 Immature Gran # (Auto) 0.03 Sodium 135 L Potassium 4.5 4.4 Chloride 103 Carbon Dioxide 25 Anion Gap 7 BUN 13 Creatinine 0.72 Est Cr Clr Drug Dosing 32.7 Est GFR ( Amer) 88.5 Est GFR (Non-Af Amer) 76.4 BUN/Creatinine Ratio 18.1 Glucose 138 H POC Glucose 120 H Estimat Average Glucose 174 Hemoglobin A1c 7.7 H Calcium 8.9 Magnesium 2.0 AST 19 09/26/23 09/26/23 08:22 12:11 WBC RBC Hgb Hct MCV MCH MCHC RDW Std Deviation RDW Coeff of Maddie Plt Count MPV Immature Gran % (Auto) Neut % (Auto) Lymph % (Auto) B[place] % (Auto) Eos % (Auto) Baso % (Auto) Neut # (Auto) Lymph # (Auto) [place] # (Auto) Eos # (Auto) Baso # (Auto) Immature Gran # (Auto) Sodium Potassium Chloride Carbon Dioxide Anion Gap BUN Creatinine Est Cr Clr Drug Dosing Est GFR ( Amer) Est GFR (Non-Af Amer) BUN/Creatinine Ratio Glucose POC Glucose 141 H 102 H Estimat Average Glucose Hemoglobin A1c Calcium Magnesium AST Diagnostic Findings Cervical Spine CT 09/25/23 11:[address] DOSE: 933.99 mGy.cm HISTORY: fall, neck pain TECHNIQUE: Multiaxial CT images of the cervical spine were performed and reformatted in the sagittal and coronal plane without the use of contrast. A dose lowering technique was utilized adhering to the principles of ALARA. COMPARISON: None. FINDINGS: No fractures. No subluxation. Prevertebral soft tissues and the C1-C2 interval are intact. No pneumothorax. Severe disc space narrowing with straightening of the cervical spine. IMPRESSION: No fractures within the cervical spine. ACT 112: Negative or not required by law. Electronically signed by: Cheng Diaz M.D. 09/25/2023 1:31 PM Chest X-Ray 12/21/23 11:45 XR chest 1V portable HISTORY: weakness COMPARISON: Chest 05/20/2022. FINDINGS: No focal lung consolidations to suggest pneumonia. No evidence for pulmonary edema. No pleural effusions. No pneumothorax. The heart is normal in size. There are calcifications within the aortic knob. Advanced degenerative changes again noted within shoulders. There are old, healed right-sided rib fractures. IMPRESSION: No acute process. ACT 112: Negative or not required by law. Electronically signed by: Cheng Diaz M.D. 09/25/2023 2:41 PM Hip/Pelvis X-Ray 09/25/23 11:45 XR hip RT 2V w pelvis CLINICAL HISTORY: Right hip pain following fall. COMPARISON: Pelvis radiograph May 20, 2022. FINDINGS: Sacroiliac joints and symphysis pubis are intact. Irregularity of the greater trochanter of the left femur represents a chronic fracture. There is slight foreshortening of the right femoral neck. This may be technical. No definite fracture is identified. IMPRESSION: Foreshortening of the right femoral neck. This is likely technical however an impacted right femoral neck fracture cannot be completely excluded. A CT of the right hip is recommended. ACT 112: Negative or not required by law. Electronically signed by: Robert Amaral M.D. 09/25/2023 2:[address] 09/25/23 14:27 CT hip RT wo con CLINICAL HISTORY: poss fx TECHNIQUE: Multidetector row helical CT of the right hip was performed without intravenous contrast. Coronal and sagittal reformations were obtained. Automated dose lowering techniques and/or adjustment according to patient size were utilized for this examination. CT DOSE: 191.02 mGy.cm Comparison: Comparison is made to right hip radiograph 11/26/2022 FINDINGS: The osseous structures are without fracture or dislocation. Degenerative changes are seen in the pubic symphysis and right hip joint. No joint effusion is seen. The soft tissues are unremarkable. IMPRESSION: Degenerative changes without evidence of hip fracture. ACT 112: Negative or not required by law. Electronically signed by: Ruslan Dueñas M.D. 09/25/2023 3:55 PM Carotid Doppler Study 09/25/23 18:35 BILATERAL CAROTID DOPPLER STUDY HISTORY: fall COMPARISON: None. TECHNIQUE: Real-time, grayscale, and color Doppler sonography of the carotid arteries was performed. Imaging reviewed in the transverse and longitudinal planes. All measurements were calculated based on NASCET criteria. FINDINGS: Antegrade flow is seen in the bilateral vertebral arteries. Mild calcified plaque within the bilateral carotid bifurcations. The peak systolic velocity within the right ICA is 54 cm/s. The right systolic ratio is 0.96. The peak systolic velocity within the left ICA is 56 cm/s. The left systolic ratio is 0.8. IMPRESSION: No hemodynamically significant stenosis seen within the carotid arteries. ACT 112: Negative or not required by law. Electronically signed by: Cheng Diaz M.D. 09/26/2023 6:56 AM
[2023-09-26] MEDS: DULoxetine HCL 60 MG CAP PO SCH (20:22)
[2023-09-26] MEDS: TRAVOPROST Z 0.004% OPH SOLN 2.5 ML BTL OP SCH (20:23)
[2023-09-26] MEDS: ENOXAPARIN INJ 30 MG/0.3 ML SYR SQ SCH (20:23)
[2023-09-27] MEDS: LEVOTHYROXINE SODIUM 25 MCG TABLET PO SCH (05:39)
--- NOTE | 2023-09-27 05:45 | Electrocardiogram Report ---
Test Reason : Blood Pressure : / mmHG Vent. Rate : 091 BPM Atrial Rate : 091 BPM P-R Int : 182 ms QRS Dur : 076 ms QT Int : 372 ms P-R-T Axes : 049 002 074 degrees QTc Int : 457 ms Normal sinus rhythm Normal ECG When compared with ECG of 20-MAY-2022 12:53, No significant change was found Confirmed by Munir Ding ([id number]) on 09/27/2023 5:44:42 AM Referred By: Confirmed By:Munir Ding
[2023-09-27 07:57] LABS: Hematocrit (blood only) 33.2 % (37.0-47.0); Hemoglobin 11.1 g/dl (12.0-16.0); Mean Corpuscular Hemoglobin 27.1 pg (25.0-34.0); Mean Corpuscular Hgb Conc 33.4 g/dL (32.0-36.0); Mean Corpuscular Volume 81.2 fL (80.0-100.0); Mean Platelet Volume 10.2 fL (9.4-12.4); Platelet Count 329 K/uL (130-400); RDW Coefficient of Variation 13.2 % (11.5-14.5); RDW Standard Deviation 39.2 fL (36.4-46.3); Red Blood Count 4.09 M/uL (4.20-5.40); White Blood Count 7.89 K/ul (4.8-10.8)
[2023-09-27 08:20] LABS: Calcium 8.8 mg/dl (8.6-10.3); Est GFR (African American) 95.3 ml/min; Est GFR (Non-African American) 82.2 ml/min; Phosphorus 4.3 mg/dl (2.5-4.9); Potassium 4.2 mmol/L (3.5-5.1)
[2023-09-27] MEDS: SODIUM CHLORIDE 1 GM TABLET PO SCH (08:23)
[2023-09-27] MEDS: CHOLECALCIFEROL 1,000 UNITS 25 MCG TAB PO SCH (08:23)
[2023-09-27] MEDS: CYANOCOBALAMIN (B-12) 500 MCG TABLET PO SCH (08:23)
[2023-09-27] MEDS: ASCORBIC ACID 500 MG TAB PO SCH (08:23)
[2023-09-27] MEDS ORDERED: IRON POLYSACCHARIDE COMPLEX 150 MG CAPSULE PO SCH ×2 (09:00)
[2023-09-27] MEDS: INSULIN ASPART PER UNIT CHARGE SC SCH ×2 (09:03→12:41)
[2023-09-27] MEDS: LANTUS PER UNIT CHARGE SQ SCH (09:10)
--- NOTE | 2023-09-27 12:20 | Discharge Summary ---
Date of Service September 27, 2023 Admission HPI Per Admitting Provider This is an 83-year-old female who has significant past medical history of T2DM, SIADH, hypothyroidism, senile osteoporosis, glaucoma and recurrent major depressive disorder who presents to ED after sustaining a fall. Caregiver is at bedside who also helps elicit history. She was standing for a while today when she became dizzy and fell. There was no loss of consciousness but she did strike her head causing a laceration. She did not lose consciousness. Post fall she did complain of some R hip pain. Per caregiver pt has been having frequent falls as of late. Prior falls did not have preceding symptoms, no buckling of knees or pain. She does have SIADH and chronic hyponatremia. Per caregiver pt has been drinking more fluid then advised. Otherwise no recent illness, f/c/s, chest pain, sob, n/v/d, abd pain. Her appetite has been stable. There are no urinary symptoms. She generally does not feel weak. She has been taking medications as prescribe. The caregiver is concerned that maybe her sodium tablets needs increased and they did reach out to their production foreman as they do not have an appt until February. In ED pt remained hemodynamically stable. She did have a small laceration repaired by ED physician with 2 sofía. Admission Exam Per Admitting Provider GENERAL APPEARANCE: AxOx4, generally well-appearing and frail woman HEENT: laceration repaired right occiput MMM. EOMI, clear conjunctiva, oropharynx clear. NECK: Supple without lymphadenopathy. No stiffness or restricted ROM. HEART: Normal rate and regular rhythm, normal S1/S1, no m/r/g LUNGS: CTAB, moving air well. No crackles or wheezes are heard. ABDOMEN: Soft, nontender, nondistended with good bowel sounds heard. EXTREMITIES: Without cyanosis, clubbing or edema. NEUROLOGICAL: Grossly nonfocal. Alert and oriented, moving all 4 extremities. CN not formally tested but appear grossly intact. Skin: Warm and dry without any rash. Principal Diagnosis Falls at home Hyponatremia Scalp laceration requiring sofía Discharge Exam Constitutional + well hydrated; no acute distress Eyes PERRL, conjunctivae normal, anicteric sclerae ENMT external ear and nose normal, oropharynx normal Respiratory normal respiratory effort, lungs clear to auscultation Cardiovascular Rate/Rhythm: regular rate and regular rhythm S1 S2 Gastrointestinal (Abdomen) normal bowel sounds, soft, nontender, no hepatosplenomegaly Musculoskeletal No pedal edema Neurologic PERRL, EOMI, accommodation nl, no face palsy, no dysarthria Psychiatric A+Ox3, euthymic affect Discharge Data Allergies Allergy/AdvReac Type Severity Reaction Status Date / Time salicylates Allergy Severe HIVES Verified 04/15/22 08:16 monosodium glutamate Allergy Mild Verified 04/15/22 08:16 Penicillins Allergy Mild Verified 04/15/22 08:16 Sulfa (Sulfonamide Allergy Mild Verified 04/15/22 08:16 Antibiotics) alendronate sodium Allergy Unknown UNKNOWN Verified 04/15/22 08:16 Consultations 09/25/23 17:08 ED Decision to Admit Stat 09/25/23 18:42 Consult Nephrology Routine 09/25/23 18:49 Consult Neurology Routine Ordered Studies 09/25/23 11:45 CT cervical spine wo con Stat 09/25/23 11:46 CT head/brain wo con Stat 09/25/23 14:27 CT hip RT wo con Stat 09/25/23 18:35 Carotid duplex [US carotid doppler BI] Routine Hospital Course (1) Acute hyponatremia: (2) Recurrent falls: (3) Laceration of scalp: (4) Type 2 diabetes mellitus: (5) HTN (hypertension): Plan 83-year-old female who has significant past medical history of T2DM, SIADH, hypothyroidism, senile osteoporosis, glaucoma and recurrent major depressive disorder who presents to ED after sustaining a fall. Recurrent falls Scalp laceration 2 sofía placed in posterior scalp Reviewed TTE report. Mild conc LVH, basal septum is thickened and angulated, EF >70%, mild AV sclerosis without significant stenosis, LV wall motion is normal, RV normal in size and function, G1DD Carotid doppler did not show any hemodynamically significant stenosis Reviewed CT/Xrays. No acute fractures. Patient's description of falls seem mechanical and may be related to ambulatory dysfunction and joint issues. However, cannot rule out other causes such as dysrhythmias Neurologist evaluated. Noted that hakeem has some plaque build up in carotids and recommended ASA and statin Discussed this with patient. She stated she has tolerated ASA 81mg in the past and was ok with it Continue home statin Was evaluated by PT/OT Encouraged patient to use her walker Discussed with patient to have PCP arrange Zio patch testing SIADH Chronic hyponatremia Patient was on salt tabs 1g daily at home Was seen by Bar Turner Dr Venegas inpatient I reviewed his recommendations with patient. She stated she will adhere to salt tabs of 1g daily and try to keep to daily fluid restriction of 1500cc Na was 130 on admission, improved to 136 today T2DM Continue home metformin, trulicity HbA1C 7.7 Hypothyroidism Continue levothyroxine Dementia Depression Mood stable Continue cymbalta Total Time Total Time Spent Total Time Spent (In Minutes): 40 Total Time Includes: Examination of the Patient, Discharge Planning and Medication Reconciliation Discharge Plan Discharge Items Patient Disposition: Home - Home Health Services Reason For Visit: FALL, LOW SODIUM Discharge Diagnosis: Falls at home Hyponatremia Scalp laceration requiring sofía Condition on Discharge: Fair Activity: Resume your previous activity Activity Comment: Use rolling walker to ambulate Non-emergency contact: Primary Care Provider and Bar Turner Call non-emergency contact if: you have any medication questions and your symptoms worsen Follow-up/Referrals: Tabitha Hall MD [Primary Care Provider] - Diet: Carb Consistent or DM2 and Heart Healthy Fluids: 1500ml (6 cups) Addtl Attending Provider Instructions: Mrs Kong You came to the hospital after falls at home. You were extensively evaluated It is important to use your rolling walker when you ambulate. Please continue your salt tabs and adhere to the maximum of 1500ml/24h fluid restriction. You were evaluated by Neurologist who recommends adding low dose Aspirin to your meds. Your Primary Doctor can arrange Zio patch testing to rule out abnormal heart rhythms. Please ensure follow up with your Doctors. It was a pleasure taking care of you. Pending Studies at Discharge: No Stand-Alone Forms: My [facility] iTagged, Smoking Cessation Medications and DC Order Prescriptions: New aspirin 81 mg capsule 81 mg PO DAILY Qty: 30 0RF Continued levothyroxine [Synthroid] 25 mcg tablet 25 mcg PO DAILY Qty: 90 3RF ascorbic acid (vitamin C) 500 mg tablet 500 mg PO DAILY cholecalciferol (vitamin D3) 2,000 unit tablet 2,000 units PO DAILY travoprost 0.004 % drops 1 drops OP QPM Qty: 3 Patient Comments: both eyes diclofenac sodium 1 % gel 1 ea TOPICAL QID PRN (Reason: Other) Rx Instructions: APPLY TO AFFECTED AREA UPPER BACK,SHOULDER FOUR TIMES DAILY. sodium chloride 1 gram Tablet 1 g PO DAILY calcium carbonate-vitamin D3 600 mg(1,500mg) -200 unit Tablet 1 tab PO DAILY Rx Instructions: unknown strength coenzyme Q10 [CoQ-10] 100 mg Capsule 100 mg PO DAILY metformin 500 mg tablet extended release 24 hr 1,000 mg PO BID duloxetine 60 mg capsule,delayed release(DR/EC) 60 mg PO HS B12 1 tab PO DAILY rosuvastatin 5 mg tablet 5 mg PO . FRI, FRI, FRIDAY magnesium Tablet 1 tab PO . FRI,FRI,FRI Trulicity 0.75 mg/0.5 mL pen injector 0.75 mg SUBCUT .MONDAYS iron glycinate,polysacch cmplx 1 tab PO . ,,FRI cyanocobalamin (vitamin B-12) 1,000 mcg/mL kit 1,000 mcg IM MONTHLY Rx Instructions: 100 mcg IM Monthly; Discharge Orders: Discharge Order (Routine); Ordered 09/27/23 Ordered By: Li Dent Admission Data Admit Date/Time: 09/25/23 17:55 Attending Provider: Li Dent I. Admit Provider: Zuleyma Aceves Primary Care Provider: Tabitha Hall Other Providers: Mikhail Arias; Lee Hernandez; Zuleyma Aceves; [facility]; [facility] Other Interventions: Discharge Summary Assessment (RN) Last Done: 09/27/23 12:34
== END 2023-09-27 16:18 | disposition home health service (06) | DRG 92 ==
LOC: ED 10:51 → 2N 17:55 → SUATTDRO 17:55 → 2N 20:57

== ENCOUNTER 2024-06-30 11:35 | Inpatient (IN) ==
--- NOTE | 2024-06-30 11:54 | Emergency Department Note ---
Impression & Plan Closed tibial fracture, Fall, Weakness, Closed rib fracture, Compression fx, lumbar spine ED Provider Note NAME: YONNY FARLEY AGE: 84 SEX: F : 1940 ARRIVES VIA: Ambulance INFORMANT: Patient ED PROVIDER(S): Devon Herman DO CHIEF COMPLAINT: Fall HPI: Patient is an 84-year-old female with a past medical history of hyponatremia, gait disturbance, dementia who presents to the ER following a fall. She was walking from 1 room to the other and missed the step up and fell forward onto her left side. She complains of left lateral neck pain, left rib pain as well as left knee pain. This occurred 2 days ago. She had x-rays done which showed a lumbar fracture as well as rib fractures and a left knee fracture. Patient denies any chest pain or belly pain. No nausea or vomiting. No dysuria, urgency, or frequency. No other exacerbating or remitting factors. ADDITIONAL HISTORY OBTAINED: Per HPI Chronic Medical/Social Conditions Affecting Care: Per HPI PAST MEDICAL HISTORY:See Below PAST SURGICAL HISTORY:See Below FAMILY HISTORY:See Below SOCIAL HISTORY:See Below HOME MEDICATIONS:See Below ALLERGIES:See Below VITALS:See Below PHYSICAL EXAMINATION: GENERAL: alert, well appearing, well nourished, no distress, non-toxic HEAD: normal cephalic, atraumatic EYE EXAM: normal conjunctiva, PERRL and EOM's grossly intact OROPHARYNX: mucous membranes are moist NECK: supple, no nuchal rigidity, no adenopathy, non-tender CHEST: stable to compression anteriorly and posteriorly with tenderness over the left lateral chest wall LUNGS: clear to auscultation. Normal chest wall mechanics HEART: no murmurs, S1 normal and S2 normal ABDOMEN: abdomen soft, non-tender, normo-active bowel sounds, no masses, no rebound or guarding. PELVIS: stable to compression anteriorly and posteriorly BACK: Back is symmetrical on inspection and there is no deformity, midline tenderness in the lower lumbar region, no CVA tenderness. UPPER EXTREMITIES: full active and passive range of motion of all joints without tenderness to palpation LOWER EXTREMITIES: No tenderness on palpation of the entire right lower extremity. No tenderness in the left hip proximal or mid femur. Tenderness over the left knee. No tenderness throughout the tib-fib from the mid to the distal ankle. No tenderness throughout the foot. NEURO EXAM: Normal sensorium, cranial nerves II-XII grossly intact, normal speech, no gross weakness of arms, no gross weakness of legs. GCS: 15. MEDICAL DECISION MAKING: Patient is an 84-year-old female who presents ER following a fall 2 days ago. Wildlife Conservation Officer who is present at bedside notes that patient needs placement. She has trouble getting around at home. IV was established medicos obtained. Labs show no significant leukocytosis or anemia. BMP with mild hyponatremia at 134. LFTs bilirubin is unremarkable. CT trauma scan shows 1 rib fracture in combination with a tibial fracture and L2 compression fracture that has slightly progressed. The back fracture as well as the tibial fracture were discussed with Dr. Warner. Knee immobilizer was placed. Patient was given morphine and Zofran. Updated bedside. Discussed case with the hospitalist for further evaluation management treatment. Consults/Care Managements Discussions: Per [facility] Triage Nursing notes reviewed. Limited review of prior medical records performed Vital Signs: reviewed and remarkable for no significant abnormalities Differential diagnosis: Differential diagnoses include major intracranial, cervical, spinal, thoracic, abdominal, pelvic and neurologic injury. Fracture, contusion, sprain, strain, laceration, abrasions included as well. ER treatment provided: See below Diagnostics interpreted by me include EKG and cardiac monitoring as listed below: -Cardiac Monitoring: An order was placed for continuous cardiac monitoring. The monitor shows a rate of 90 with sinus rhythm. -ECG: none -Laboratory studies:Interpreted by me as stated above in MDM and shown below. Imaging studies: Xrays: As interpreted by me: X-ray of the left knee showed a fracture of the tibia CTs show: CT trauma scan as described above Procedures:none Critical Care: None Past Med/Surg History Problem List (Updated 06/30/24 @ 17:42 by Devon Herman DO) Compression fx, lumbar spine (Acute) Closed rib fracture (Acute) Weakness (Acute) Fall (Acute) Closed tibial fracture (Acute) Rib fracture Compression fracture of L2 Left patella fracture Fall (Acute) Ambulatory dysfunction Loss of consciousness Acute hyponatremia (Acute) Laceration of scalp (Acute) Acute head trauma (Acute) Weakness (Acute) Right rotator cuff tear Degenerative arthritis of knee, bilateral Contusion of left knee Left knee DJD Fracture of metacarpal of left hand, closed Right rotator cuff tear arthropathy Gait disturbance Bilateral primary osteoarthritis of knee Closed fracture of greater trochanter of left femur (Acute) Dementia Dementia Chronic hyponatremia Recurrent falls Multiple rib fractures (Acute) COVID-19 (Acute) Type 2 diabetes mellitus Cervical spinal stenosis Cervical radiculopathy HTN (hypertension) Osteoarthritis of knees, bilateral Hypothyroid (Chronic) Vitamin B12 deficiency Carotid artery plaque (Acute) 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) Spondylolisthesis, acquired (Acute) Skin abnormality (Acute) Osteoporosis (Acute) Glaucoma (Acute) Esophageal reflux (Acute) Dyslipidemia (Acute) Disc degeneration, lumbosacral (Acute) Medical History DVT prophylaxis Thrombocytosis Hypochloremia Acute hyponatremia Unsteady gait Signs and symptoms involving cognition Numbness of left foot Colon cancer screening Surgical History History of tubal ligation Family History Sister Breast cancer Father Myocardial infarction Other No pertinent family history Denies family history of Colon cancer Ovarian cancer Prostate cancer Social History Smoking Status: Never smoker Second Hand Exposure: No; Do You Dip or Chew Tobacco: No; Hx Alcohol Use: No Hx Substance Use: No Preferred Language: Marathi Communication Ability: Effective Visual Impairment: No Limitations Hearing Ability: Normal Packer Denture Required: No Beliefs That Will Affect Care: None marital status: Current Living Situation: Spouse Current Living Situation Comment: HOME HEALTH AIDE Feels Safe at Home: Yes Seatbelt Use: always Assistive Devices: Cane and Walker Allergies Allergies Allergy/AdvReac Type Severity Reaction Status Date / Time salicylates Allergy Severe HIVES Verified 02/16/24 08:15 monosodium glutamate Allergy Mild Verified 02/16/24 08:15 Penicillins Allergy Mild Verified 02/16/24 08:15 Sulfa (Sulfonamide Allergy Mild Verified 02/16/24 08:15 Antibiotics) alendronate sodium Allergy Unknown UNKNOWN Verified 02/16/24 08:15 Home Meds Home Medications Medication Instructions Recorded Confirmed ascorbic acid (vitamin C) 500 mg 500 mg PO DAILY 06/23/19 06/30/24 tablet cholecalciferol (vitamin D3) 50 2,000 units PO DAILY 06/23/19 06/30/24 mcg (2,000 unit) tablet travoprost 0.004 % eye drops 1 drops ophthalmic (eye) QPM #3 mL 06/23/19 06/30/24 diclofenac sodium 1 % topical gel 1 ea topical QID PRN Other 08/07/20 06/30/24 sodium chloride 1 gram tablet 1 g PO DAILY 10/02/20 06/30/24 calcium carbonate 600 mg-vitamin 1 tab PO DAILY 03/21/21 06/30/24 D3 5 mcg (200 unit) tablet coenzyme Q10 100 mg capsule 100 mg PO DAILY 03/21/21 06/30/24 (CoQ-10) duloxetine 60 mg capsule,delayed 60 mg PO DAILY 03/21/21 06/30/24 release metformin 500 mg tablet,extended 1,000 mg PO UD 03/21/21 06/30/24 release 24 hr B12 1 tab PO DAILY 09/25/23 06/30/24 cyanocobalamin (vitamin B-12) 1,000 mcg IM MONTHLY 09/25/23 06/30/24 1,000 mcg/mL injection kit dulaglutide 0.75 mg/0.5 mL 0.75 mg subcut WK 09/25/23 06/30/24 subcutaneous pen injector (Trulicity) iron glycinate,polysacch cmplx 1 tab PO . TU,TH,SAT 09/25/23 06/30/24 magnesium 1 tab PO . MON,WED,Fri09/25/23 06/30/24 rosuvastatin 5 mg tablet 5 mg PO UD 09/25/23 06/30/24 duloxetine 30 mg capsule,delayed 30 mg PO DAILY 06/30/24 06/30/24 release levothyroxine 25 mcg tablet 25 mcg PO UD 06/30/24 06/30/24 (Synthroid) Previous Rx's Medication Instructions Recorded aspirin 81 mg capsule 81 mg PO DAILY #30 caps 09/27/23 Results & Data (ED) Vital Signs Vital Signs - 24 hr 06/30/24 11:47 06/30/24 11:52 06/30/24 11:56 Temperature 36.5 C Temperature Source Oral Pulse Rate 86 83 Pulse Rate [Apical] Respiratory Rate 16 Blood Pressure 139/98 Blood Pressure [Right Arm] Blood Pressure Mean 111 Blood Pressure Mean [Right Arm] Pulse Oximetry 97 97 Oxygen Delivery Method Room Air Room Air Sepsis Recent Fever Within 48 Hours No Sepsis New/Unexplained Change in Mental Status No Sepsis Action Taken by Nursing No Action Required 06/30/24 13:30 06/30/24 15:00 Temperature Temperature Source Pulse Rate Pulse Rate [Apical] 83 87 Respiratory Rate 17 16 Blood Pressure Blood Pressure [Right Arm] 166/97 H 179/98 H Blood Pressure Mean Blood Pressure Mean [Right Arm] 120 125 Pulse Oximetry 97 97 Oxygen Delivery Method Room Air Room Air Sepsis Recent Fever Within 48 Hours Sepsis New/Unexplained Change in Mental Status Sepsis Action Taken by Nursing Laboratory Data 06/30/24 11:59 06/30/24 11:59 Lab Results 06/30/24 06/30/24 Range/Units 11:59 12:01 WBC 8.74 (4.8-10.8) K/ul RBC 4.47 (4.20-5.40) M/uL Hgb 12.0 (12.0-16.0) g/dl POC Hgb 11.9 L (12.0-16.0) g/dl Hct 37.0 (37.0-47.0) % POC Hct 35 L (37-47) % MCV 82.8 (80.0-100.0) fL MCH 26.8 (25.0-34.0) pg MCHC 32.4 (32.0-36.0) g/dL RDW Std Deviation 40.4 (36.4-46.3) fL RDW Coeff of Maddie 13.3 (11.5-14.5) % Plt Count 350 (130-400) K/uL MPV 9.7 (9.4-12.4) fL Immature Gran % (Auto) 1.3 % Neut % (Auto) 63.6 % Lymph % (Auto) 21.5 % [place] % (Auto) 10.0 % Eos % (Auto) 3.0 % Baso % (Auto) 0.6 % Neut # (Auto) 5.57 (1.40-6.50) K/uL Lymph # (Auto) 1.88 (1.20-3.40) K/uL [place] # (Auto) 0.87 H (0.11-0.59) K/uL Eos # (Auto) 0.26 (0.00-0.50) K/uL Baso # (Auto) 0.05 (0.00-0.20) K/uL Immature Gran # (Auto) 0.11 (0.01-0.20) K/uL POC Sodium 135 (135-144) mmol/L Sodium 134 L (136-145) mmol/L POC Potassium 4.1 (3.3-5.0) mmol/L Potassium 4.2 (3.5-5.1) mmol/L POC Chloride 100 L (101-112) mmol/L Chloride 101 (98-107) mmol/L Carbon Dioxide 26 (21-32) mmol/L POC Total CO2 23 L (24-31) mmol/L Anion Gap 7 (3-11) POC Anion Gap 18.0 (16-25) mmol/L POC BUN 8 (7-18) mg/dl BUN 10 (6-23) mg/dl Creatinine 0.64 (0.6-1.2) mg/dl POC Creatinine 0.7 (0.6-1.3) mg/dl Est Cr Clr Drug Dosing 43.4 ml/min Est GFR ( Amer) 93.6 ml/min Est GFR (Non-Af Amer) 80.8 ml/min BUN/Creatinine Ratio 15.6 (10-20) Glucose 146 H (70-99(Fasting)) mg/dl POC Glucose (other) 143 H (70-99) mg/dl Calcium 9.4 (8.6-10.3) mg/dl POC Ioniz Calcium Azar 1.21 (1.12-1.32) mmol/l Total Bilirubin 0.6 (0.2-1.0) mg/dl AST 13 (13-39) U/L ALT 12 (7-52) U/L Alkaline Phosphatase 58 (34-104) U/L Total Protein 6.8 (6.0-8.3) gm/dl Albumin 4.0 (3.4-5.0) gm/dl Globulin 2.8 (2.5-4.0) gm/dl Albumin/Globulin Ratio 1.4 (0.9-2) Administered Medications Discontinued Medications Ioversol (Optiray 320 100ml) 92 ml IV ONCE ONE Stop: 06/30/24 12:21 Last Admin: 06/30/24 12:11 Dose: 92 ml Documented By: JAYLENE Morphine Sulfate (Morphine Sulfate 2 Mg/Ml Carp) 2 mg IV NOW STA Stop: 06/30/24 11:51 Last Admin: 06/30/24 12:08 Dose: Not Given Documented By: MORAIMA Ondansetron HCl (Ondansetron Inj 2 Mg/Ml 2 Ml Vial) 4 mg IV NOW STA Stop: 06/30/24 11:51 Last Admin: 06/30/24 12:08 Dose: Not Given Documented By: MORAIMA Imaging Data Radiologist's Impression: Knee X-Ray 06/30/24 11:49 LEFT KNEE 3 VIEWS CLINICAL HISTORY: Fall. Left knee pain. FINDINGS: AP, crosstable lateral, and sunrise views of the left knee are compared to studies dated 04/30/2022 and . The skeletal structures are osteopenic. There is an indeterminate cortical lucency suggested involving the anterior cortex of the proximal tibial metadiaphysis seen on the crosstable lateral image only. No additional findings are suspicious for acute fracture. There is severe tricompartmental degenerative joint space narrowing. There are large marginal osteophytes and patellar enthesophytes. A joint effusion is observed. There is mild soft tissue swelling around the knee. Advanced atherosclerotic calcification is seen in the regional arteries. IMPRESSION: 1. There is a questionable/indeterminate cortical lucency involving the anterior cortex of the proximal tibial metadiaphysis which is only seen on the lateral projection. This may be artifactual. If There is clinical concern for fracture a CT scan of the knee should be obtained. 2. No additional findings are suspicious for acute fracture. 3. Soft tissue swelling and joint effusion. 4. Advanced arthritic change as above. Electronically signed by: Jeff Graham M.D. 06/30/2024 12:48 PM Abdomen/Pelvis CT 06/30/24 11:[address] WITH IV CONTRAST HISTORY: Acute generalized abdominal pain status post trauma Trauma TECHNIQUE: Multiaxial CT images of the abdomen and pelvis were performed following the IV administration of 92 cc of Optiray, A dose lowering technique was utilized adhering to the principles of ALARA. COMPARISON STUDY: CT thoracolumbar spine studies of same day, CT abdomen and pelvis 09/27/2020. FINDINGS: Chronic right-sided rib fractures. There is an acute mildly displaced posterolateral left seventh rib fracture on image 27. Grade 1 anterolisthesis L5 on S1 with chronic L5 pars defects. 30% superior endplate compression deformity at L2 with 3 mm retropulsion. No paravertebral edema. This finding has progressed from the [address] is dictated separately. Trace left pleural effusion with mild bibasilar atelectasis. Extensive coronary artery calcifications. No free air. Unremarkable spleen, pancreas and adrenal glands. Mildly distended gallbladder. Patency of the hepatic and portal veins. There is an indeterminate hypodense focus in the right hepatic lobe on image 100 series 11 measuring 1.6 cm, not definitively seen on the prior study. Unremarkable kidneys. There are a few small cysts bilaterally within the kidneys. Renal vascular calcifications. Unremarkable urinary bladder with mild nonspecific wall thickening. Mild urothelial thickening of the renal pelves. Moderately heterogeneous uterus. Atherosclerosis of the aorta and branch vessels with high-grade stenosis at the origin of the celiac trunk. There is no lymphadenopathy. Mild distal esophageal wall thickening. Colonic diverticulosis. Moderate colonic fecal retention. Noninflamed appendix. No free fluid. Unremarkable soft tissues. IMPRESSION: 1. Acute minimally displaced left posterolateral seventh rib fracture. 2. No evidence of acute solid organ injury. 3. 30% superior endplate compression of the L2 vertebral body has progressed from the 2020 study, likely subacute or chronic. 4. Incidental findings as above. ACT 112: Negative or not required by law. The above report was generated using voice recognition software. It may contain grammatical, syntax or spelling errors. Electronically signed by: Gerhard Garcia M.D. 06/30/2024 1:[address] 06/30/24 11:50 CT cervical spine wo con CLINICAL HISTORY: Trauma TECHNIQUE: Multidetector row helical CT of the cervical spine was performed without administration of intravenous contrast. Coronal and sagittal reformations were obtained. Automated dose lowering techniques and/or adjustment according to patient size were utilized for this exam. Comparison: Comparison is made to CT chest 09/25/2023 FINDINGS: No acute fractures or subluxations are identified. Degenerative changes are seen in the visualized spine. The alignment is normal. Soft tissues are unremarkable. IMPRESSION: Degenerative changes without evidence of acute bony injury. ACT 112: Negative or not required by law. Electronically signed by: Ruslan Dueñas M.D. 06/30/2024 12:[address] 06/30/24 11:50 CT SCAN OF THE CHEST WITH IV CONTRAST; CT SCAN OF THE THORACIC SPINE WITH IV CONTRAST CLINICAL HISTORY: Trauma. Fall. COMPARISON STUDY: Chest CT dated 09/27/2020. Chest x-ray dated 09/25/2023. Abdominal CT dated 09/27/2020. TECHNIQUE: Following the IV administration of 92 cc of Optiray 320, CT scan of the thorax was performed from the thoracic inlet to the upper abdomen. Additionally, CT scan of the thoracic spine is performed from the lower cervical spine. The lumbar spine. Images for both examinations are reviewed in the axial, sagittal, and coronal planes. IV contrast was administered without complication. A dose lowering technique was utilized adhering to the principles of ALARA. The examinations are degraded by motion artifact, as well as by streak artifact from the arms which could not be elevated above the chest. FINDINGS: Thyroid: Imaged portions of the thyroid gland are normal in size and attenuation. Thoracic aorta: There is atherosclerotic calcification of the thoracic aorta, which is normal in caliber and demonstrates standard 3-vessel arch anatomy. No dissection is seen. Pulmonary vasculature: The pulmonary trunk is normal in caliber. There are no filling defects identified in the central pulmonary vessels to indicate pulmonary embolus. Note that this examination was not protocoled for evaluation of the pulmonary arteries. Heart: The heart is enlarged and without pericardial effusion. Lungs and pleural spaces: Evaluation of the lung parenchyma is degraded by motion artifact. There is trace left pleural effusion. Scarring/atelectasis is noted at both lung bases. There is no airspace consolidation or pneumothorax. The trachea and central airways are clear. Mediastinum: There is no mediastinal hematoma or lymphadenopathy. Loren: Clear. Axillae: There is no axillary lymphadenopathy. Upper abdomen: Partially visualized upper abdominal viscera is within normal limits. Skeletal structures: The skeletal structures are osteopenic. There is an acute and minimally displaced fracture of the left posterolateral 7th rib. No additional acute fracture is identified. There are chronic/healed right-sided rib fractures. There is a chronic superior endplate compression deformity of L2. See below for dedicated discussion of the thoracic spine. No lytic or blastic bony lesions are seen. Advanced arthritic change is noted in the shoulders. Joint effusion/bursal fluid is seen on the right. THORACIC SPINE: There is no evidence of acute fracture or malalignment. Vertebral body height and alignment are maintained throughout the thoracic spine. Anterior osteophytes are seen throughout. The transverse and spinous processes are intact. There is moderate to severe multilevel degenerative disc space narrowing with associated endplate sclerosis seen throughout the thoracic region. There is no CT evidence of large disc herniation or high-grade central canal stenosis a posterior disc osteophyte complex is noted at L1-L2. The paraspinous soft tissues are normal in appearance. IMPRESSION: 1. Acute minimally displaced left posterolateral 7th rib fracture. 2. Trace left pleural effusion. 3. There is no airspace consolidation or pneumothorax. 4. There is no evidence of fracture or malalignment involving the thoracic spine. 5. Cardiomegaly. 6. Additional findings as above. ACT 112: Negative or not required by law. Electronically signed by: Jeff Graham M.D. 06/30/2024 12:[address] 06/30/24 11:50 CT head/brain wo con CLINICAL HISTORY: 84 years-old Female with Trauma. Acute head trauma TECHNIQUE: Multiple axial CT images of the head were obtained without contrast. A dose lowering technique was utilized adhering to the principles of ALARA. COMPARISON: CT cervical spine of same day, head CT 09/25/2023 FINDINGS: No acute intracranial hemorrhage, midline shift, intracranial mass, acute hydrocephalus, territorial ischemia or abnormal extra-axial collection. Involutional changes with unchanged appearance of the extraocular jugular megaly, noted with asymmetric enlargement of the right lateral ventricle compared to the left. White matter hypodensities suggestive of chronic microvascular ischemic disease. The calvarium is intact. The paranasal sinuses, mastoid air cells, and middle ear cavities are clear. IMPRESSION: No acute intracranial abnormality or calvarial fracture. ACT 112: Negative or not required by law. The above report was generated using voice recognition software. It may contain grammatical, syntax or spelling errors. Electronically signed by: Gerhard Garcia M.D. 06/30/2024 1:[address] 06/30/24 11:50 CT lumbar spine w con CLINICAL HISTORY: Trauma TECHNIQUE: Multidetector row helical CT of the lumbar spine was performed without administration of intravenous contrast. Coronal and sagittal reformations were obtained. Automated dose lowering techniques and/or adjustment according to patient size were utilized for this exam. Comparison: Comparison is made to MRI lumbar spine 05/18/2015, lumbar spine radiographs 02/11/2017, and CT abdomen pelvis 09/27/2020 FINDINGS: For counting purposes, the last complete intervertebral disc space is considered L5-S1. There is a new compression deformity of T2 which is age-indeterminate. Vertebral body heights and disk spaces are well maintained. Grade 2 anterolisthesis is seen at L5-S1 with bilateral pars defects. Surrounding soft tissues are unremarkable. IMPRESSION: Age-indeterminate compression deformity of L2 which is new from 2020. Correlation with point tenderness is recommended to exclude acute fracture. ACT 112: Negative or not required by law. Electronically signed by: Ruslan Dueñas M.D. 06/30/2024 12:[address] 06/30/24 11:50 CT SCAN OF THE CHEST WITH IV CONTRAST; CT SCAN OF THE THORACIC SPINE WITH IV CONTRAST CLINICAL HISTORY: Trauma. Fall. COMPARISON STUDY: Chest CT dated 09/27/2020. Chest x-ray dated 09/25/2023. Abdominal CT dated 09/27/2020. TECHNIQUE: Following the IV administration of 92 cc of Optiray 320, CT scan of the thorax was performed from the thoracic inlet to the upper abdomen. Additionally, CT scan of the thoracic spine is performed from the lower cervical spine. The lumbar spine. Images for both examinations are reviewed in the axial, sagittal, and coronal planes. IV contrast was administered without complication. A dose lowering technique was utilized adhering to the principles of ALARA. The examinations are degraded by motion artifact, as well as by streak artifact from the arms which could not be elevated above the chest. FINDINGS: Thyroid: Imaged portions of the thyroid gland are normal in size and attenuation. Thoracic aorta: There is atherosclerotic calcification of the thoracic aorta, which is normal in caliber and demonstrates standard 3-vessel arch anatomy. No dissection is seen. Pulmonary vasculature: The pulmonary trunk is normal in caliber. There are no filling defects identified in the central pulmonary vessels to indicate pulmonary embolus. Note that this examination was not protocoled for evaluation of the pulmonary arteries. Heart: The heart is enlarged and without pericardial effusion. Lungs and pleural spaces: Evaluation of the lung parenchyma is degraded by motion artifact. There is trace left pleural effusion. Scarring/atelectasis is noted at both lung bases. There is no airspace consolidation or pneumothorax. The trachea and central airways are clear. Mediastinum: There is no mediastinal hematoma or lymphadenopathy. Loren: Clear. Axillae: There is no axillary lymphadenopathy. Upper abdomen: Partially visualized upper abdominal viscera is within normal limits. Skeletal structures: The skeletal structures are osteopenic. There is an acute and minimally displaced fracture of the left posterolateral 7th rib. No additional acute fracture is identified. There are chronic/healed right-sided rib fractures. There is a chronic superior endplate compression deformity of L2. See below for dedicated discussion of the thoracic spine. No lytic or blastic bony lesions are seen. Advanced arthritic change is noted in the shoulders. Joint effusion/bursal fluid is seen on the right. THORACIC SPINE: There is no evidence of acute fracture or malalignment. Vertebral body height and alignment are maintained throughout the thoracic spine. Anterior osteophytes are seen throughout. The transverse and spinous processes are intact. There is moderate to severe multilevel degenerative disc space narrowing with associated endplate sclerosis seen throughout the thoracic region. There is no CT evidence of large disc herniation or high-grade central canal stenosis a posterior disc osteophyte complex is noted at L1-L2. The paraspinous soft tissues are normal in appearance. IMPRESSION: 1. Acute minimally displaced left posterolateral 7th rib fracture. 2. Trace left pleural effusion. 3. There is no airspace consolidation or pneumothorax. 4. There is no evidence of fracture or malalignment involving the thoracic spine. 5. Cardiomegaly. 6. Additional findings as above. ACT 112: Negative or not required by law. Electronically signed by: Jeff Graham M.D. 06/30/2024 12:[address] 06/30/24 13:40 CT knee LT wo con HISTORY: 84 years-old Female ? fx acute on chronic left knee pain with recent fall COMPARISON: Knee radiographs of same day and also 08/25/2022 TECHNIQUE: Multiple axial CT images of the left knee were obtained without IV contrast. A dose lowering technique was used consistent with the principals of ALARA. FINDINGS: There is a subtle acute nondisplaced mid patellar fracture with extension into the lateral facet, nicely seen on the axial series) for example see image 48 series 3). There is confirmation of the subtle acute nondisplaced fracture involving the anterior proximal tibial metaphysis/tibial tuberosity. No fracture extension into the medial or lateral tibial plateaus. Demineralized appearance of the bones. There is moderate to severe patellofemoral with severe medial and lateral compartment osteoarthritis demonstrating chronic remodeling. 1.2 cm medial subluxation of the distal femur in relation to the proximal tibia appears chronic. There is a moderate sized joint effusion with associated synovial thickening. No definite intra-articular loose body identified. Arterial calcifications are noted along with anterior subcutaneous edema. There is atrophy of the musculature. Arterial calcifications. Tendons and ligaments of the knee are not well evaluated by CT technique. IMPRESSION: 1. Confirmation of the subtle acute nondisplaced fracture involving the tibial tuberosity without fracture extension identified into the medial or lateral tibial plateaus. 2. Acute nondisplaced intra-articular fracture of the mid patella and lateral patellar facet. 3. Moderate-sized joint effusion. 4. Tricompartmental osteoarthritis of the knee, severe within the medial and lateral compartments. ACT 112: Negative or not required by law. The above report was generated using voice recognition software. It may contain grammatical, syntax or spelling errors. Electronically signed by: Gerhard Garcia M.D. 06/30/2024 2:32 PM Discharge Plan Visit Data Chief Complaint: Fall ED Provider: Devon Herman Discharge Problem: Closed tibial fracture, Fall, Weakness, Closed rib fracture, Compression fx, lumbar spine Patient Disposition: Admitted As Inpatient Discharge Instructions Interventions: ED Discharge Assessment Last Done: 06/30/24 16:54
[2024-06-30] MEDS: ONDANSETRON INJ 2 MG/ML 2 ML VIAL IV STA (12:08)
[2024-06-30] MEDS: MoRPHine SULFATE 2 MG/ML CARP IV STA (12:08)
[2024-06-30] MEDS: OPTIRAY 320 100ml IV ONE (12:11)
[2024-06-30 12:14] LABS: iSTAT Creatinine 0.7 mg/dl (0.6-1.3); iSTAT Hemoglobin 11.9 g/dl (12.0-16.0); iSTAT Ionized Calcium 1.21 mmol/l (1.12-1.32); iSTAT Potassium 4.1 mmol/L (3.3-5.0)
[2024-06-30 12:21] LABS: Basophils # (auto) 0.05 K/uL (0.00-0.20); Basophils % (auto) 0.6 %; Eosinophils # (auto) 0.26 K/uL (0.00-0.50); Immature Granulocytes # (auto) 0.11 K/uL (0.01-0.20); Immature Granulocytes % (auto) 1.3 %; Lymphocytes # (auto) 1.88 K/uL (1.20-3.40); Lymphocytes % (auto) 21.5 %; Mean Corpuscular Hemoglobin 26.8 pg (25.0-34.0); Mean Corpuscular Hgb Conc 32.4 g/dL (32.0-36.0); Mean Corpuscular Volume 82.8 fL (80.0-100.0); Mean Platelet Volume 9.7 fL (9.4-12.4); Monocytes # (auto) 0.87 K/uL (0.11-0.59); Neutrophils # (auto) 5.57 K/uL (1.40-6.50); Neutrophils % (auto) 63.6 %; Platelet Count 350 K/uL (130-400); RDW Coefficient of Variation 13.3 % (11.5-14.5); RDW Standard Deviation 40.4 fL (36.4-46.3); Red Blood Count 4.47 M/uL (4.20-5.40); White Blood Count 8.74 K/ul (4.8-10.8)
[2024-06-30 12:30] LABS: Albumin Globulin Ratio 1.4 (0.9-2); BUN Creatinine Ratio 15.6 (10-20); Bilirubin,Total 0.6 mg/dl (0.2-1.0); Calcium 9.4 mg/dl (8.6-10.3); Creatinine Clr Calc Pharmacy 43.4 ml/min; Est GFR (African American) 93.6 ml/min; Est GFR (Non-African American) 80.8 ml/min; Globulin 2.8 gm/dl (2.5-4.0); Potassium 4.2 mmol/L (3.5-5.1); Total Protein 6.8 gm/dl (6.0-8.3)
--- NOTE | 2024-06-30 12:40 | CT Scan Report ---
CT cervical spine wo con CLINICAL HISTORY: Trauma TECHNIQUE: Multidetector row helical CT of the cervical spine was performed without administration of intravenous contrast. Coronal and sagittal reformations were obtained. Automated dose lowering techn iques and/or adjustment according to patient size were utilized for this exam. Comparison: Comparison is made to CT chest 09/25/2023 FINDINGS: No acute fractures or subluxations are identified. Degenerative changes are seen in the visualized sp ine. The alignment is normal. Soft tissues are unremarkable. IMPRESSION: Degenerative changes without evidence of acute bony injury. ACT 112: Negative or not required by law. Electronically signed by: Ruslan Dueñas M.D. 06/30/2024 12:37 PM
--- NOTE | 2024-06-30 12:44 | CT Scan Report ---
CT SCAN OF THE CHEST WITH IV CONTRAST; CT SCAN OF THE THORACIC SPINE WITH IV CONTRAST CLINICAL HISTORY: Trauma. Fall. COMPARISON STUDY: Chest CT dated 09/27/2020. Chest x-ray dated 09/25/2023. Abdominal CT dated 2019. TECHNIQUE: Following the IV administration of 92 cc of Optiray 320, CT scan of the thorax was perform ed from the thoracic inlet to the upper abdomen. Additionally, CT scan of the thoracic spine is perfo rmed from the lower cervical spine. The lumbar spine. Images for both examinations are reviewed in th e axial, sagittal, and coronal planes. IV contrast was administered without complication. A dose low ering technique was utilized adhering to the principles of ALARA. The examinations are degraded by mo tion artifact, as well as by streak artifact from the arms which could not be elevated above the ches t. FINDINGS: Thyroid: Imaged portions of the thyroid gland are normal in size and attenuation. Thoracic aorta: There is atherosclerotic calcification of the thoracic aorta, which is normal in [place] and demonstrates standard 3-vessel arch anatomy. No dissection is seen. Pulmonary vasculature: The pulmonary trunk is normal in caliber. There are no filling defects identif ied in the central pulmonary vessels to indicate pulmonary embolus. Note that this examination was no t protocoled for evaluation of the pulmonary arteries. Heart: The heart is enlarged and without pericardial effusion. Lungs and pleural spaces: Evaluation of the lung parenchyma is degraded by motion artifact. There is trace left pleural effusion. Scarring/atelectasis is noted at both lung bases. There is no airspace c onsolidation or pneumothorax. The trachea and central airways are clear. Mediastinum: There is no mediastinal hematoma or lymphadenopathy. Loren: Clear. Axillae: There is no axillary lymphadenopathy. Upper abdomen: Partially visualized upper abdominal viscera is within normal limits. Skeletal structures: The skeletal structures are osteopenic. There is an acute and minimally displace d fracture of the left posterolateral 7th rib. No additional acute fracture is identified. There are chronic/healed right-sided rib fractures. There is a chronic superior endplate compression deformity of L2. See below for dedicated discussion of the thoracic spine. No lytic or blastic bony lesions are seen. Advanced arthritic change is noted in the shoulders. Joint effusion/bursal fluid is seen on th e right. THORACIC SPINE: There is no evidence of acute fracture or malalignment. Vertebral body height and ali gnment are maintained throughout the thoracic spine. Anterior osteophytes are seen throughout. The tr ansverse and spinous processes are intact. There is moderate to severe multilevel degenerative disc s pace narrowing with associated endplate sclerosis seen throughout the thoracic region. There is no CT evidence of large disc herniation or high-grade central canal stenosis a posterior disc osteophyte c omplex is noted at L1-L2. The paraspinous soft tissues are normal in appearance. IMPRESSION: 1. Acute minimally displaced left posterolateral 7th rib fracture. 2. Trace left pleural effusion. 3. There is no airspace consolidation or pneumothorax. 4. There is no evidence of fracture or malalignment involving the thoracic spine. 5. Cardiomegaly. 6. Additional findings as above. ACT 112: Negative or not required by law. Electronically signed by: Jeff Graham M.D. 06/30/2024 12:43 PM
--- NOTE | 2024-06-30 12:45 | CT Scan Report ---
CT lumbar spine w con CLINICAL HISTORY: Trauma TECHNIQUE: Multidetector row helical CT of the lumbar spine was performed without administration of i ntravenous contrast. Coronal and sagittal reformations were obtained. Automated dose lowering techniq ues and/or adjustment according to patient size were utilized for this exam. Comparison: Comparison is made to MRI lumbar spine 05/18/2015, lumbar spine radiographs 02/11/2017, and CT abdomen pelvis 09/27/2020 FINDINGS: For counting purposes, the last complete intervertebral disc space is considered L5-S1. There is a new compression deformity of T2 which is age-indeterminate. Vertebral body heights and dis k spaces are well maintained. Grade 2 anterolisthesis is seen at L5-S1 with bilateral pars defects. S urrounding soft tissues are unremarkable. IMPRESSION: Age-indeterminate compression deformity of L2 which is new from 2020. Correlation with point tenderne ss is recommended to exclude acute fracture. ACT 112: Negative or not required by law. Electronically signed by: Ruslan Dueñas M.D. 06/30/2024 12:44 PM
--- NOTE | 2024-06-30 12:51 | XRay Report ---
LEFT KNEE 3 VIEWS CLINICAL HISTORY: Fall. Left knee pain. FINDINGS: AP, crosstable lateral, and sunrise views of the left knee are compared to studies dated and . The skeletal structures are osteopenic. There is an indeterminate cortical patricia ency suggested involving the anterior cortex of the proximal tibial metadiaphysis seen on the crossta ble lateral image only. No additional findings are suspicious for acute fracture. There is severe tri compartmental degenerative joint space narrowing. There are large marginal osteophytes and patellar e nthesophytes. A joint effusion is observed. There is mild soft tissue swelling around the knee. Advan tri atherosclerotic calcification is seen in the regional arteries. IMPRESSION: 1. There is a questionable/indeterminate cortical lucency involving the anterior cortex of the proxim al tibial metadiaphysis which is only seen on the lateral projection. This may be artifactual. If The re is clinical concern for fracture a CT scan of the knee should be obtained. 2. No additional findings are suspicious for acute fracture. 3. Soft tissue swelling and joint effusion. 4. Advanced arthritic change as above. Electronically signed by: Jeff Graham M.D. 06/30/2024 12:48 PM
--- NOTE | 2024-06-30 13:02 | CT Scan Report ---
CT head/brain wo con CLINICAL HISTORY: 84 years-old Female with Trauma. Acute head trauma TECHNIQUE: Multiple axial CT images of the head were obtained without contrast. A dose lowering tech nique was utilized adhering to the principles of ALARA. COMPARISON: CT cervical spine of same day, head CT 09/25/2023 FINDINGS: No acute intracranial hemorrhage, midline shift, intracranial mass, acute hydrocephalus, territorial ischemia or abnormal extra-axial collection. Involutional changes with unchanged appearance of the ex traocular jugular megaly, noted with asymmetric enlargement of the right lateral ventricle compared t o the left. White matter hypodensities suggestive of chronic microvascular ischemic disease. The calvarium is intact. The paranasal sinuses, mastoid air cells, and middle ear cavities are clear . IMPRESSION: No acute intracranial abnormality or calvarial fracture. ACT 112: Negative or not required by law. The above report was generated using voice recognition software. It may contain grammatical, syntax o r spelling errors. Electronically signed by: Gerhard Garcia M.D. 06/30/2024 1:01 PM
--- NOTE | 2024-06-30 13:13 | CT Scan Report ---
ABDOMEN AND PELVIS CT WITH IV CONTRAST HISTORY: Acute generalized abdominal pain status post trauma Trauma TECHNIQUE: Multiaxial CT images of the abdomen and pelvis were performed following the IV administrat ion of 92 cc of Optiray, A dose lowering technique was utilized adhering to the principles of ALARA. COMPARISON STUDY: CT thoracolumbar spine studies of same day, CT abdomen and pelvis 09/27/2020. FINDINGS: Chronic right-sided rib fractures. There is an acute mildly displaced posterolateral left s eventh rib fracture on image 27. Grade 1 anterolisthesis L5 on S1 with chronic L5 pars defects. 30% s uperior endplate compression deformity at L2 with 3 mm retropulsion. No paravertebral edema. This fin ding has progressed from the [address] is dictated separately. Trace left pleural effusion with mild bibasilar atelectasis. Extensi ve coronary artery calcifications. No free air. Unremarkable spleen, pancreas and adrenal glands. Mil dly distended gallbladder. Patency of the hepatic and portal veins. There is an indeterminate hypoden se focus in the right hepatic lobe on image 100 series 11 measuring 1.6 cm, not definitively seen on the prior study. Unremarkable kidneys. There are a few small cysts bilaterally within the kidneys. Re nal vascular calcifications. Unremarkable urinary bladder with mild nonspecific wall thickening. Mild urothelial thickening of the renal pelves. Moderately heterogeneous uterus. Atherosclerosis of the a maki and branch vessels with high-grade stenosis at the origin of the celiac trunk. There is no lymph adenopathy. Mild distal esophageal wall thickening. Colonic diverticulosis. Moderate colonic fecal retention. Non inflamed appendix. No free fluid. Unremarkable soft tissues. IMPRESSION: 1. Acute minimally displaced left posterolateral seventh rib fracture. 2. No evidence of acute solid organ injury. 3. 30% superior endplate compression of the L2 vertebral body has progressed from the 2019 study, lik apolonia subacute or chronic. 4. Incidental findings as above. ACT 112: Negative or not required by law. The above report was generated using voice recognition software. It may contain grammatical, syntax o r spelling errors. Electronically signed by: Gerhard Garcia M.D. 06/30/2024 1:11 PM
--- NOTE | 2024-06-30 14:34 | CT Scan Report ---
CT knee LT wo con HISTORY: 84 years-old Female ? fx acute on chronic left knee pain with recent fall COMPARISON: Knee radiographs of same day and also 08/25/2022 TECHNIQUE: Multiple axial CT images of the left knee were obtained without IV contrast. A dose loweri ng technique was used consistent with the principals of KENNETH. FINDINGS: There is a subtle acute nondisplaced mid patellar fracture with extension into the lateral facet, mica apolonia seen on the axial series) for example see image 48 series 3). There is confirmation of the subtle acute nondisplaced fracture involving the anterior proximal tibial metaphysis/tibial tuberosity. No fracture extension into the medial or lateral tibial plateaus. Demineralized appearance of the bones. There is moderate to severe patellofemoral with severe medial and lateral compartment osteoarthritis demonstrating chronic remodeling. 1.2 cm medial subluxation of the distal femur in relation to the p roximal tibia appears chronic. There is a moderate sized joint effusion with associated synovial thickening. No definite intra-artic ular loose body identified. Arterial calcifications are noted along with anterior subcutaneous edema. There is atrophy of the musculature. Arterial calcifications. Tendons and ligaments of the knee are not well evaluated by CT technique. IMPRESSION: 1. Confirmation of the subtle acute nondisplaced fracture involving the tibial tuberosity without fra cture extension identified into the medial or lateral tibial plateaus. 2. Acute nondisplaced intra-articular fracture of the mid patella and lateral patellar facet. 3. Moderate-sized joint effusion. 4. Tricompartmental osteoarthritis of the knee, severe within the medial and lateral compartments. ACT 112: Negative or not required by law. The above report was generated using voice recognition software. It may contain grammatical, syntax o r spelling errors. Electronically signed by: Gerhard Garcia M.D. 06/30/2024 2:32 PM
--- NOTE | 2024-06-30 15:36 | History & Physical Report ---
Date of Service June 30, 2024 Assessment & Plan (1) Ambulatory dysfunction: (2) Fall: (3) Left patella fracture: (4) Compression fracture of L2: (5) Rib fracture: Plan This is an 84 yr old F who has a significant PMH of T2DM, SIADH, hypothyroidism, senile osteoporosis, depression, glaucoma who presents to ED after sustaining a fall. Fall Ambulatory dysfunction L2 Compression Fracture Acute nondisplaced intra articular fracture of mid patella and lateral patellar facet with moderate joint effusion L 7th rib fracture Admit to med/surg consult [facility] Dr. Barnett for Patellar fx and Dr Valdivia for compression fracture NWB LLE until seen by Dr. Barnett, knee immobilizer in place IV APAP and lidocaine patch for pain control, pt wishes to avoid narcotics PT/OT encourage incentive spirometry, thoracic CT with trace L pleural effusion likely will need placement/rehab SIADH: Stable, continue salt tabs, FR 2L T2DM hold metformin, trulicity; novolog per protocol A1C in a.m. chronic/stable, last a1c 7.9 Hypothyroidism chronic, stable continue levothyroxine Depression: mood stable continue cymbalta DVT ppx: SQ lovenox Dispo: med/surg FULL CODE PCP: Dr. Hall Pt was seen and examined in collaboration with Dr. Escoto please see addendum A total of 61 minutes was spent coordinating, documenting, and providing care for this patient excluding time spent in the performance of separately billed services. This included personally viewing all current laboratories and imaging studies, medication reconciliation, outpatient chart review, and discussion with specialists. History of Present Illness Chief Complaint: Fell 2 days ago. Primary Care Provider: Tabitha Hall MD This is an 84 yr old F who has a significant PMH of T2DM, SIADH, hypothyroidism, senile osteoporosis, depression, glaucoma who presents to ED after sustaining a fall. She fell two days ago. She missed and step and fell on her L side. Since then she has been having pain in her left chest and left leg. She needed help getting off the floor. She lives by herself with caregivers. She denies hitting her head. Since the fall she has been having difficulty walking and having a lot of pain therefore she was brought to the ED. She has been mostly in bed. Allergies Allergy/AdvReac Type Severity Reaction Status Date / Time salicylates Allergy Severe HIVES Verified 02/16/24 08:15 monosodium glutamate Allergy Mild Verified 02/16/24 08:15 Penicillins Allergy Mild Verified 02/16/24 08:15 Sulfa (Sulfonamide Allergy Mild Verified 02/16/24 08:15 Antibiotics) alendronate sodium Allergy Unknown UNKNOWN Verified 02/16/24 08:15 Home Medications Medication Instructions Recorded Confirmed Type ascorbic acid (vitamin C) 500 mg 500 mg PO DAILY 06/23/19 06/30/24 History tablet cholecalciferol (vitamin D3) 50 2,000 units PO DAILY 06/23/19 06/30/24 History mcg (2,000 unit) tablet travoprost 0.004 % eye drops 1 drops ophthalmic (eye) QPM #3 mL 06/23/19 06/30/24 History diclofenac sodium 1 % topical gel 1 ea topical QID PRN Other 08/07/20 06/30/24 History sodium chloride 1 gram tablet 1 g PO DAILY 10/02/20 06/30/24 History calcium carbonate 600 mg-vitamin 1 tab PO DAILY 03/21/21 06/30/24 History D3 5 mcg (200 unit) tablet coenzyme Q10 100 mg capsule 100 mg PO DAILY 03/21/21 06/30/24 History (CoQ-10) duloxetine 60 mg capsule,delayed 60 mg PO DAILY 03/21/21 06/30/24 History release metformin 500 mg tablet,extended 1,000 mg PO UD 03/21/21 06/30/24 History release 24 hr B12 1 tab PO DAILY 09/25/23 06/30/24 History cyanocobalamin (vitamin B-12) 1,000 mcg IM MONTHLY 09/25/23 06/30/24 History 1,000 mcg/mL injection kit dulaglutide 0.75 mg/0.5 mL 0.75 mg subcut WK 09/25/23 06/30/24 History subcutaneous pen injector (Trulicity) iron glycinate,polysacch cmplx 1 tab PO . TUES,THURS,SAT 09/25/23 06/30/24 History magnesium 1 tab PO . MON,WED,FRI 09/25/23 06/30/24 History rosuvastatin 5 mg tablet 5 mg PO UD 09/25/23 06/30/24 History aspirin 81 mg capsule 81 mg PO DAILY #30 caps 09/27/23 06/30/24 Rx duloxetine 30 mg capsule,delayed 30 mg PO DAILY 06/30/24 06/30/24 History release levothyroxine 25 mcg tablet 25 mcg PO UD 06/30/24 06/30/24 History (Synthroid) Past Med/Surg History Problem List (Updated 06/30/24 @ 17:42 by Devon Herman DO) Compression fx, lumbar spine (Acute) Closed rib fracture (Acute) Weakness (Acute) Fall (Acute) Closed tibial fracture (Acute) Rib fracture Compression fracture of L2 Left patella fracture Fall (Acute) Ambulatory dysfunction Loss of consciousness Acute hyponatremia (Acute) Laceration of scalp (Acute) Acute head trauma (Acute) Weakness (Acute) Right rotator cuff tear Degenerative arthritis of knee, bilateral Contusion of left knee Left knee DJD Fracture of metacarpal of left hand, closed Right rotator cuff tear arthropathy Gait disturbance Bilateral primary osteoarthritis of knee Closed fracture of greater trochanter of left femur (Acute) Dementia Dementia Chronic hyponatremia Recurrent falls Multiple rib fractures (Acute) COVID-19 (Acute) Type 2 diabetes mellitus Cervical spinal stenosis Cervical radiculopathy HTN (hypertension) Osteoarthritis of knees, bilateral Hypothyroid (Chronic) Vitamin B12 deficiency Carotid artery plaque (Acute) 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) Spondylolisthesis, acquired (Acute) Skin abnormality (Acute) Osteoporosis (Acute) Glaucoma (Acute) Esophageal reflux (Acute) Dyslipidemia (Acute) Disc degeneration, lumbosacral (Acute) Medical History DVT prophylaxis Thrombocytosis Hypochloremia Acute hyponatremia Unsteady gait Signs and symptoms involving cognition Numbness of left foot Colon cancer screening Surgical History History of tubal ligation Family History Sister Breast cancer Father Myocardial infarction Other No pertinent family history Denies family history of Colon cancer Ovarian cancer Prostate cancer Social History Smoking Status: Never smoker Second Hand Exposure: No; Do You Dip or Chew Tobacco: No; Hx Alcohol Use: No Hx Substance Use: No Preferred Language: Greek Communication Ability: Effective Visual Impairment: No Limitations Hearing Ability: Normal Nutrition Intern Required: No Beliefs That Will Affect Care: None marital status: Current Living Situation: Spouse Current Living Situation Comment: HOME HEALTH AIDE Feels Safe at Home: Yes Safety Concerns: Feels Safe At This Time Seatbelt Use: always Assistive Devices: Cane and Glasses Assistive Devices Comment: pt uses a cane occasionally Review of Systems Review of Systems: All systems reviewed & are unremarkable except as noted in HPI & below Physical Exam Physical Exam: please refer to Dr. Escoto addendum for physical exam findings. Results & Data Results & Data Vital Signs (Past 12 Hours) Vital Signs Temp Pulse Pulse Resp BP BP Pulse Ox 06/30/24 15:00 87 16 179/98 H 97 06/30/24 13:30 83 17 166/97 H 97 06/30/24 11:56 83 06/30/24 11:52 97 06/30/24 11:47 36.5 C 86 16 139/98 97 O2 Del Method 06/30/24 15:00 Room Air 06/30/24 13:30 Room Air 06/30/24 11:56 06/30/24 11:52 Room Air 06/30/24 11:47 Room Air Laboratory Results I have independently reviewed and interpreted patient's admitting labs including CBC, CMP. Diagnostic Findings Knee X-Ray 06/30/24 11:49 LEFT KNEE 3 VIEWS CLINICAL HISTORY: Fall. Left knee pain. FINDINGS: AP, crosstable lateral, and sunrise views of the left knee are compared to studies dated 04/30/2022 and . The skeletal structures are osteopenic. There is an indeterminate cortical lucency suggested involving the anterior cortex of the proximal tibial metadiaphysis seen on the crosstable lateral image only. No additional findings are suspicious for acute fracture. There is severe tricompartmental degenerative joint space narrowing. There are large marginal osteophytes and patellar enthesophytes. A joint effusion is observed. There is mild soft tissue swelling around the knee. Advanced atherosclerotic calcification is seen in the regional arteries. IMPRESSION: 1. There is a questionable/indeterminate cortical lucency involving the anterior cortex of the proximal tibial metadiaphysis which is only seen on the lateral projection. This may be artifactual. If There is clinical concern for fracture a CT scan of the knee should be obtained. 2. No additional findings are suspicious for acute fracture. 3. Soft tissue swelling and joint effusion. 4. Advanced arthritic change as above. Electronically signed by: Jeff Graham M.D. 06/30/2024 12:48 PM Abdomen/Pelvis CT 06/30/24 11:[address] WITH IV CONTRAST HISTORY: Acute generalized abdominal pain status post trauma Trauma TECHNIQUE: Multiaxial CT images of the abdomen and pelvis were performed following the IV administration of 92 cc of Optiray, A dose lowering technique was utilized adhering to the principles of ALARA. COMPARISON STUDY: CT thoracolumbar spine studies of same day, CT abdomen and pelvis 09/27/2020. FINDINGS: Chronic right-sided rib fractures. There is an acute mildly displaced posterolateral left seventh rib fracture on image 27. Grade 1 anterolisthesis L5 on S1 with chronic L5 pars defects. 30% superior endplate compression deformity at L2 with 3 mm retropulsion. No paravertebral edema. This finding has progressed from the [address] is dictated separately. Trace left pleural effusion with mild bibasilar atelectasis. Extensive coronary artery calcifications. No free air. Unremarkable spleen, pancreas and adrenal glands. Mildly distended gallbladder. Patency of the hepatic and portal veins. There is an indeterminate hypodense focus in the right hepatic lobe on image 100 series 11 measuring 1.6 cm, not definitively seen on the prior study. Unremarkable kidneys. There are a few small cysts bilaterally within the kidneys. Renal vascular calcifications. Unremarkable urinary bladder with mild nonspecific wall thickening. Mild urothelial thickening of the renal pelves. Moderately heterogeneous uterus. Atherosclerosis of the aorta and branch vessels with high-grade stenosis at the origin of the celiac trunk. There is no lymphadenopathy. Mild distal esophageal wall thickening. Colonic diverticulosis. Moderate colonic fecal retention. Noninflamed appendix. No free fluid. Unremarkable soft tissues. IMPRESSION: 1. Acute minimally displaced left posterolateral seventh rib fracture. 2. No evidence of acute solid organ injury. 3. 30% superior endplate compression of the L2 vertebral body has progressed from the 2019 study, likely subacute or chronic. 4. Incidental findings as above. ACT 112: Negative or not required by law. The above report was generated using voice recognition software. It may contain grammatical, syntax or spelling errors. Electronically signed by: Gerhard Garcia M.D. 06/30/2024 1:[address] 06/30/24 11:50 CT cervical spine wo con CLINICAL HISTORY: Trauma TECHNIQUE: Multidetector row helical CT of the cervical spine was performed without administration of intravenous contrast. Coronal and sagittal reformations were obtained. Automated dose lowering techniques and/or adjustment according to patient size were utilized for this exam. Comparison: Comparison is made to CT chest 09/25/2023 FINDINGS: No acute fractures or subluxations are identified. Degenerative changes are seen in the visualized spine. The alignment is normal. Soft tissues are unremarkable. IMPRESSION: Degenerative changes without evidence of acute bony injury. ACT 112: Negative or not required by law. Electronically signed by: Ruslan Dueñas M.D. 06/30/2024 12:[address] 06/30/24 11:50 CT SCAN OF THE CHEST WITH IV CONTRAST; CT SCAN OF THE THORACIC SPINE WITH IV CONTRAST CLINICAL HISTORY: Trauma. Fall. COMPARISON STUDY: Chest CT dated 09/27/2020. Chest x-ray dated 09/25/2023. Abdominal CT dated 09/27/2020. TECHNIQUE: Following the IV administration of 92 cc of Optiray 320, CT scan of the thorax was performed from the thoracic inlet to the upper abdomen. Additionally, CT scan of the thoracic spine is performed from the lower cervical spine. The lumbar spine. Images for both examinations are reviewed in the axial, sagittal, and coronal planes. IV contrast was administered without complication. A dose lowering technique was utilized adhering to the principles of ALARA. The examinations are degraded by motion artifact, as well as by streak artifact from the arms which could not be elevated above the chest. FINDINGS: Thyroid: Imaged portions of the thyroid gland are normal in size and attenuation. Thoracic aorta: There is atherosclerotic calcification of the thoracic aorta, which is normal in caliber and demonstrates standard 3-vessel arch anatomy. No dissection is seen. Pulmonary vasculature: The pulmonary trunk is normal in caliber. There are no filling defects identified in the central pulmonary vessels to indicate pulmonary embolus. Note that this examination was not protocoled for evaluation of the pulmonary arteries. Heart: The heart is enlarged and without pericardial effusion. Lungs and pleural spaces: Evaluation of the lung parenchyma is degraded by motion artifact. There is trace left pleural effusion. Scarring/atelectasis is noted at both lung bases. There is no airspace consolidation or pneumothorax. The trachea and central airways are clear. Mediastinum: There is no mediastinal hematoma or lymphadenopathy. Loren: Clear. Axillae: There is no axillary lymphadenopathy. Upper abdomen: Partially visualized upper abdominal viscera is within normal limits. Skeletal structures: The skeletal structures are osteopenic. There is an acute and minimally displaced fracture of the left posterolateral 7th rib. No additional acute fracture is identified. There are chronic/healed right-sided rib fractures. There is a chronic superior endplate compression deformity of L2. See below for dedicated discussion of the thoracic spine. No lytic or blastic bony lesions are seen. Advanced arthritic change is noted in the shoulders. Joint effusion/bursal fluid is seen on the right. THORACIC SPINE: There is no evidence of acute fracture or malalignment. Vertebral body height and alignment are maintained throughout the thoracic spine. Anterior osteophytes are seen throughout. The transverse and spinous processes are intact. There is moderate to severe multilevel degenerative disc space narrowing with associated endplate sclerosis seen throughout the thoracic region. There is no CT evidence of large disc herniation or high-grade central canal stenosis a posterior disc osteophyte complex is noted at L1-L2. The paraspinous soft tissues are normal in appearance. IMPRESSION: 1. Acute minimally displaced left posterolateral 7th rib fracture. 2. Trace left pleural effusion. 3. There is no airspace consolidation or pneumothorax. 4. There is no evidence of fracture or malalignment involving the thoracic spine. 5. Cardiomegaly. 6. Additional findings as above. ACT 112: Negative or not required by law. Electronically signed by: Jeff Graham M.D. 06/30/2024 12:[address] 06/30/24 11:50 CT head/brain wo con CLINICAL HISTORY: 84 years-old Female with Trauma. Acute head trauma TECHNIQUE: Multiple axial CT images of the head were obtained without contrast. A dose lowering technique was utilized adhering to the principles of ALARA. COMPARISON: CT cervical spine of same day, head CT 09/25/2023 FINDINGS: No acute intracranial hemorrhage, midline shift, intracranial mass, acute hydrocephalus, territorial ischemia or abnormal extra-axial collection. Involutional changes with unchanged appearance of the extraocular jugular megaly, noted with asymmetric enlargement of the right lateral ventricle compared to the left. White matter hypodensities suggestive of chronic microvascular ischemic disease. The calvarium is intact. The paranasal sinuses, mastoid air cells, and middle ear cavities are clear. IMPRESSION: No acute intracranial abnormality or calvarial fracture. ACT 112: Negative or not required by law. The above report was generated using voice recognition software. It may contain grammatical, syntax or spelling errors. Electronically signed by: Gerhard Garcia M.D. 06/30/2024 1:[address] 06/30/24 11:50 CT lumbar spine w con CLINICAL HISTORY: Trauma TECHNIQUE: Multidetector row helical CT of the lumbar spine was performed without administration of intravenous contrast. Coronal and sagittal reforma tions were obtained. Automated dose lowering techniques and/or adjustment according to patient size were utilized for this exam. Comparison: Comparison is made to MRI lumbar spine 05/18/2015, lumbar spine radiographs 02/11/2017, and CT abdomen pelvis 09/27/2020 FINDINGS: For counting purposes, the last complete intervertebral disc space is considered L5-S1. There is a new compression deformity of T2 which is age-indeterminate. Vertebral body heights and disk spaces are well maintained. Grade 2 anterolisthesis is seen at L5-S1 with bilateral pars defects. Surrounding soft tissues are unre markable. IMPRESSION: Age-indeterminate compression deformity of L2 which is new from 2020. Correlation with point tenderness is recommended to exclude acute fracture. ACT 112: Negative or not required by law. Electronically signed by: Ruslan Dueñas M.D. 06/30/2024 12:[address] 06/30/24 11:50 CT SCAN OF THE CHEST WITH IV CONTRAST; CT SCAN OF THE THORACIC SPINE WITH IV CONTRAST CLINICAL HISTORY: Trauma. Fall. COMPARISON STUDY: Chest CT dated 09/27/2020. Chest x-ray dated 09/25/2023. Abdominal CT dated 09/27/2020. TECHNIQUE: Following the IV administration of 92 cc of Optiray 320, CT scan of the thorax was performed from the thoracic inlet to the upper abdomen. Additionally, CT scan of the thoracic spine is performed from the lower cervical spine. The lumbar spine. Images for both examinations are reviewed in the axial, sagittal, and coronal planes. IV contrast was administered without complication. A dose lowering technique was utilized adhering to the principles of ALARA. The examinations are degraded by motion artifact, as well as by streak artifact from the arms which could not be elevated above the chest. FINDINGS: Thyroid: Imaged portions of the thyroid gland are normal in size and attenuation. Thoracic aorta: There is atherosclerotic calcification of the thoracic aorta, which is normal in caliber and demonstrates standard 3-vessel arch anatomy. No dissection is seen. Pulmonary vasculature: The pulmonary trunk is normal in caliber. There are no filling defects identified in the central pulmonary vessels to indicate pulmonary embolus. Note that this examination was not protocoled for evaluation of the pulmonary arteries. Heart: The heart is enlarged and without pericardial effusion. Lungs and pleural spaces: Evaluation of the lung parenchyma is degraded by motion artifact. There is trace left pleural effusion. Scarring/atelectasis is noted at both lung bases. There is no airspace consolidation or pneumothorax. The trachea and central airways are clear. Mediastinum: There is no mediastinal hematoma or lymphadenopathy. Loren: Clear. Axillae: There is no axillary lymphadenopathy. Upper abdomen: Partially visualized upper abdominal viscera is within normal limits. Skeletal structures: The skeletal structures are osteopenic. There is an acute and minimally displaced fracture of the left posterolateral 7th rib. No additional acute fracture is identified. There are chronic/healed right-sided rib fractures. There is a chronic superior endplate compression deformity of L2. See below for dedicated discussion of the thoracic spine. No lytic or blastic bony lesions are seen. Advanced arthritic change is noted in the shoulders. Joint effusion/bursal fluid is seen on the right. THORACIC SPINE: There is no evidence of acute fracture or malalignment. Vertebral body height and alignment are maintained throughout the thoracic spine. Anterior osteophytes are seen throughout. The transverse and spinous processes are intact. There is moderate to severe multilevel degenerative disc space narrowing with associated endplate sclerosis seen throughout the thoracic region. There is no CT evidence of large disc herniation or high-grade central canal stenosis a posterior disc osteophyte complex is noted at L1-L2. The paraspinous soft tissues are normal in appearance. IMPRESSION: 1. Acute minimally displaced left posterolateral 7th rib fracture. 2. Trace left pleural effusion. 3. There is no airspace consolidation or pneumothorax. 4. There is no evidence of fracture or malalignment involving the thoracic spine. 5. Cardiomegaly. 6. Additional findings as above. ACT 112: Negative or not required by law. Electronically signed by: Jeff Graham M.D. 06/30/2024 12:[address] 06/30/24 13:40 CT knee LT wo con HISTORY: 84 years-old Female ? fx acute on chronic left knee pain with recent fall COMPARISON: Knee radiographs of same day and also 08/25/2022 TECHNIQUE: Multiple axial CT images of the left knee were obtained without IV contrast. A dose lowering technique was used consistent with the principals of KENNETH. FINDINGS: There is a subtle acute nondisplaced mid patellar fracture with extension into the lateral facet, nicely seen on the axial series) for example see image 48 series 3). There is confirmation of the subtle acute nondisplaced fracture involving the anterior proximal tibial metaphysis/tibial tuberosity. No fracture extension into the medial or lateral tibial plateaus. Demineralized appearance of the bones. There is moderate to severe patellofemoral with severe medial and lateral compartment osteoarthritis demonstrating chronic remodeling. 1.2 cm medial subluxation of the distal femur in relation to the proximal tibia appears chronic. There is a moderate sized joint effusion with associated synovial thickening. No definite intra-articular loose body identified. Arterial calcifications are noted along with anterior subcutaneous edema. There is atrophy of the musculature. Arterial calcifications. Tendons and ligaments of the knee are not well evaluated by CT technique. IMPRESSION: 1. Confirmation of the subtle acute nondisplaced fracture involving the tibial tuberosity without fracture extension identified into the medial or lateral tibial plateaus. 2. Acute nondisplaced intra-articular fracture of the mid patella and lateral patellar facet. 3. Moderate-sized joint effusion. 4. Tricompartmental osteoarthritis of the knee, severe within the medial and lateral compartments. ACT 112: Negative or not required by law. The above report was generated using voice recognition software. It may contain grammatical, syntax or spelling errors. Electronically signed by: Gerhard Garcia M.D. 06/30/2024 2:32 PM Medications Administered Medication List Discontinued Medications Ioversol (Optiray 320 100ml) 92 ml IV ONCE ONE Stop: 06/30/24 12:21 Last Admin: 06/30/24 12:11 Dose: 92 ml Documented By: JAYLENE Morphine Sulfate (Morphine Sulfate 2 Mg/Ml Carp) 2 mg IV NOW STA Stop: 06/30/24 11:51 Last Admin: 06/30/24 12:08 Dose: Not Given Documented By: SKRito Ondansetron HCl (Ondansetron Inj 2 Mg/Ml 2 Ml Vial) 4 mg IV NOW STA Stop: 06/30/24 11:51 Last Admin: 06/30/24 12:08 Dose: Not Given Documented By: MORAIMA ECG Additional Comments: I have independently reviewed and interpreted patient's admitting EKG which revealed: 85 NSR, qtc 459ms, no st or t wave change COVID-19 Results Results COVID-19 Adm Lab Results: RBC 4.47 M/uL (4.20-5.40) 06/30/24 WBC 8.74 K/ul (4.8-10.8) 06/30/24 Hgb 12.0 g/dl (12.0-16.0) 06/30/24 Hct 37.0 % (37.0-47.0) 06/30/24 Plt Count 350 K/uL (130-400) 06/30/24 Neutrophils (%) (Auto) 63.6 % 06/30/24 Lymphocytes (%) (Auto) 21.5 % 06/30/24 Monocytes # (Auto) 0.87 K/uL (0.11-0.59) H 06/30/24 Eosinophils # (Auto) 0.26 K/uL (0.00-0.50) 06/30/24 Immature Granulocyte % (Auto) 1.3 % 06/30/24 Neutrophils # (Auto) 5.57 K/uL (1.40-6.50) 06/30/24 Lymphocytes # (Auto) 1.88 K/uL (1.20-3.40) 06/30/24 Monocytes # (Auto) 0.87 K/uL (0.11-0.59) H 06/30/24 Eosinophils # (Auto) 0.26 K/uL (0.00-0.50) 06/30/24 Basophils # (Auto) 0.05 K/uL (0.00-0.20) 06/30/24 Immature Granulocyte # (Auto) 0.11 K/uL (0.01-0.20) 4 Na 134 mmol/L (136-145) L 06/30/24 K 4.2 mmol/L (3.5-5.1) 06/30/24 Cl 101 mmol/L (98-107) 06/30/24 CO2 26 mmol/L (21-32) 06/30/24 Anion Gap 7 (3-11) 06/30/24 BUN 10 mg/dl (6-23) 06/30/24 Creatinine 0.64 mg/dl (0.6-1.2) 06/30/24 BUN/Creatinine Ratio 15.6 (10-20) 06/30/24 Glucose Level 146 mg/dl (70-99(Fasting)) H 06/30/24 Ca 9.4 mg/dl (8.6-10.3) 06/30/24 Total Bilirubin 0.6 mg/dl (0.2-1.0) 06/30/24 AST/SGOT 13 U/L (13-39) 06/30/24 ALT/SGPT 12 U/L (7-52) 06/30/24 Alkaline Phosphatase 58 U/L (34-104) 06/30/24 Total Protein 6.8 gm/dl (6.0-8.3) 06/30/24 Albumin 4.0 gm/dl (3.4-5.0) 06/30/24 Globulin 2.8 gm/dl (2.5-4.0) 06/30/24 Albumin/Globulin Ratio 1.4 (0.9-2) 06/30/[address] 06/30/24 Code Status & VTE Plan Code Status FULL CODE VTE Prophylaxis Plan VTE Prophylaxis will be ordered: Yes Supervising Physician Co-Signing Physician Notes Patient is an 84-year-old female with history of SIADH, hypothyroidism, diabetes mellitus and other medical problems presents with left rib, knee pain after sustaining a fall 2 days ago. She states that she missed a step while walking resulting in a fall towards the left side. She denies any head trauma, loss of consciousness. She also denies any shortness of breath, dizziness, nausea, vomiting, abdominal pain. Please review HPI for complete details of presentation. I personally reviewed blood work and imaging studies. CT head, neck showed no acute fractures. Imaging studies suggestive of L2 compression fracture, left seventh rib fracture. Also showed acute nondisplaced fracture of the left mid patella and lateral patellar facet with moderate joint effusion. Physical Exam: Vitals signs as noted above General Appearance: Thin, frail, elderly, no apparent distress Head: normocephalic, Atraumatic Eyes: normal inspection, EOMI Neck: supple, Trachea midline Respiratory/Chest: Normal breath sounds, CTA, left rib tenderness, no accessory muscle use Cardiovascular: S1, S2, No murmur Abdomen/GI:Soft, Non tender, Bowel sounds present Extremities/Musculoskeletal:normal inspection, no edema Neurologic/Psych:AAOX3, grossly no focal neurological deficits Skin: normal color, warm Acute L2 compression fracture, left tibial tubercle fracture/patella fracture nondisplaced. Secondary to mechanical fall Left seventh rib fracture Fall precautions, PT OT as able, orthopedics consulted Pain controlled Incentive spirometry I personally interviewed and examined at bedside. Patient's care is coordinated with Saritha Ugalde PA-C. I have reviewed the advanced practitioner's documentation, and I agree with plan of care. Please refer to the documentation above for details of patient's presentation and for discussion of other issues. I spent a total [id number] coordinating, documenting, and providing care for this patient excluding time spent in the performance of separately billed services. (2) Fall Encounter type: subsequent encounter Qualified Code(s): W19.XXXD - Unspecified fall, subsequent encounter
[2024-06-30] MEDS ORDERED: GLUCOSE 10 TAB/TUBE PO PRN ×2 (17:39→18:16)
[2024-06-30] MEDS ORDERED: LIDOCAINE 5% 1 PATCH TD SCH (17:39)
[2024-06-30] MEDS ORDERED: GLUCAGON FOR INJ 1 MG VIAL SQ PRN ×2 (17:39→18:16)
[2024-06-30] MEDS ORDERED: GLUCOSE 40% GEL 15 GM TUBE PO PRN ×2 (17:39→18:16)
[2024-06-30] MEDS ORDERED: CARBOHYDRATES FOR HYPOGLYCEMIA PO PRN ×2 (17:39→18:16)
[2024-06-30] MEDS ORDERED: ONDANSETRON INJ 2 MG/ML 2 ML VIAL IV PRN (17:39)
[2024-06-30] MEDS ORDERED: DEXTROSE 50% 50 ML SYRINGE IV PRN ×2 (17:39→18:16)
[2024-06-30] MEDS: ACETAMINOPHEN 1,000 MG/100 ML VIAL IV SCH (18:24)
[2024-06-30] MEDS: hydrALAZINE 10 MG TAB PO STA (18:24)
[2024-06-30] MEDS: LIDOCAINE 5% 1 PATCH TD SCH (18:31)
--- NOTE | 2024-06-30 18:55 | Orthopedic Consultation ---
Date of Service June 30, 2024 History of Present Illness Reason for Consultation: L2 compression fracture, left tibial tubercle fracture/patella fracture nondisplaced. Requesting Physician: . Attending Physician: Karri Escoto MD 84-year-old female with a past medical history of hyponatremia, gait disturbance, dementia who presents to the ER following a fall. She was walking from 1 room to the other and missed the step up and fell forward onto her left side. She complains of left lateral neck pain, left rib pain as well as left knee pain. This occurred 2 days ago. She had x-rays done which showed a lumbar fracture as well as rib fractures and a left knee fracture. Patient denies any chest pain or belly pain. No nausea or vomiting. No dysuria, urgency, or frequency. No other exacerbating or remitting factors. Patient notes to me that she has some chronic lumbosacral type pain but this is unchanged status post the fall, she does not describe any specific lower extremity symptoms outside of the pain in the left knee from the fall and left lateral rib pain. Exam reveals her to indicate pain just at the lumbosacral junction but she is nontender to palpation in the midline including the lumbar and thoracic spine. She has appropriate strength for plantar dorsiflexion, left knee is in a brace, swelling noted with effusion. CT scan images June 30, 2024 CT knee LT wo con HISTORY: 84 years-old Female ? fx acute on chronic left knee pain with recent fall COMPARISON: Knee radiographs of same day and also 08/25/2022 TECHNIQUE: Multiple axial CT images of the left knee were obtained without IV contrast. A dose lowering technique was used consistent with the principals of ALARA. FINDINGS: There is a subtle acute nondisplaced mid patellar fracture with extension into the lateral facet, nicely seen on the axial series) for example see image 48 series 3). There is confirmation of the subtle acute nondisplaced fracture involving the anterior proximal tibial metaphysis/tibial tuberosity. No fracture extension into the medial or lateral tibial plateaus. Demineralized appearance of the bones. There is moderate to severe patellofemoral with severe medial and lateral compartment osteoarthritis demonstrating chronic remodeling. 1.2 cm medial subluxation of the distal femur in relation to the proximal tibia appears chronic. There is a moderate sized joint effusion with associated synovial thickening. No definite intra-articular loose body identified. Arterial calcifications are noted along with anterior subcutaneous edema. There is atrophy of the musculature. Arterial calcifications. Tendons and ligaments of the knee are not well evaluated by CT technique. IMPRESSION: 1. Confirmation of the subtle acute nondisplaced fracture involving the tibial tuberosity without fracture extension identified into the medial or lateral tibial plateaus. 2. Acute nondisplaced intra-articular fracture of the mid patella and lateral patellar facet. 3. Moderate-sized joint effusion. 4. Tricompartmental osteoarthritis of the knee, severe within the medial and lateral compartments. CT lumbar spine w con June 30, 2024 CLINICAL HISTORY: Trauma TECHNIQUE: Multidetector row helical CT of the lumbar spine was performed without administration of intravenous contrast. Coronal and sagittal reformations were obtained. Automated dose lowering techniques and/or adjustment according to patient size were utilized for this exam. Comparison: Comparison is made to MRI lumbar spine 05/18/2015, lumbar spine radio graphs 02/11/2017, and CT abdomen pelvis 09/27/2020 FINDINGS: For counting purposes, the last complete intervertebral disc space is considered L5-S1. There is a new compression deformity of T2 which is age-indeterminate. Vertebral body heights and disk spaces are well maintained. Grade 2 anterolisthesis is seen at L5-S1 with bilateral pars defects. Surrounding soft tissues are unremarkable. IMPRESSION: Age-indeterminate compression deformity of L2 which is new from 2020. Correlation with point tenderness is recommended to exclude acute fracture. CT scan images of the left knee and also the lumbar spine reviewed, this my separate interpretation, these reveal the patient have a nondisplaced left tibial tubercle fracture nondisplaced patella fracture. The CT scan images reveal what appears to be a chronic L2 fracture no evidence to suggest new fracture. Impression: Left knee nondisplaced tibial tubercle fracture and patella fracture, both nondisplaced. No new evidence to suggest L2 compression fracture of acute origin, chronic low back pain. Plan: At this time I recommended patient begin weightbearing as tolerated on the left knee but maintain knee immobilizer, can be removed for hygiene and change of close, follow-up with radiographs. Allergies Allergy/AdvReac Type Severity Reaction Status Date / Time salicylates Allergy Severe HIVES Verified 02/16/24 08:15 monosodium glutamate Allergy Mild Verified 02/16/24 08:15 Penicillins Allergy Mild Verified 02/16/24 08:15 Sulfa (Sulfonamide Allergy Mild Verified 02/16/24 08:15 Antibiotics) alendronate sodium Allergy Unknown UNKNOWN Verified 02/16/24 08:15 Home Medications Medication Instructions Recorded Confirmed Type ascorbic acid (vitamin C) 500 mg 500 mg PO DAILY 06/23/19 06/30/24 History tablet cholecalciferol (vitamin D3) 50 2,000 units PO DAILY 06/23/19 06/30/24 History mcg (2,000 unit) tablet travoprost 0.004 % eye drops 1 drops ophthalmic (eye) QPM #3 mL 06/23/19 06/30/24 History diclofenac sodium 1 % topical gel 1 ea topical QID PRN Other 08/07/20 06/30/24 History sodium chloride 1 gram tablet 1 g PO DAILY 10/02/20 06/30/24 History calcium carbonate 600 mg-vitamin 1 tab PO DAILY 03/21/21 06/30/24 History D3 5 mcg (200 unit) tablet coenzyme Q10 100 mg capsule 100 mg PO DAILY 03/21/21 06/30/24 History (CoQ-10) duloxetine 60 mg capsule,delayed 60 mg PO DAILY 03/21/21 06/30/24 History release metformin 500 mg tablet,extended 1,000 mg PO UD 03/21/21 06/30/24 History release 24 hr B12 1 tab PO DAILY 09/25/23 06/30/24 History cyanocobalamin (vitamin B-12) 1,000 mcg IM MONTHLY 09/25/23 06/30/24 History 1,000 mcg/mL injection kit dulaglutide 0.75 mg/0.5 mL 0.75 mg subcut WK 09/25/23 06/30/24 History subcutaneous pen injector (Trulicity) iron glycinate,polysacch cmplx 1 tab PO . TUES,THURS,SAT 09/25/23 06/30/24 History magnesium 1 tab PO . MON,WED,FRI 09/25/23 06/30/24 History rosuvastatin 5 mg tablet 5 mg PO UD 09/25/23 06/30/24 History aspirin 81 mg capsule 81 mg PO DAILY #30 caps 09/27/23 06/30/24 Rx duloxetine 30 mg capsule,delayed 30 mg PO DAILY 06/30/24 06/30/24 History release levothyroxine 25 mcg tablet 25 mcg PO UD 06/30/24 06/30/24 History (Synthroid) Past Med/Surg History Problem List (Updated 06/30/24 @ 17:42 by Devon Herman DO) Compression fx, lumbar spine (Acute) Closed rib fracture (Acute) Weakness (Acute) Fall (Acute) Closed tibial fracture (Acute) Rib fracture Compression fracture of L2 Left patella fracture Fall (Acute) Ambulatory dysfunction Loss of consciousness Acute hyponatremia (Acute) Laceration of scalp (Acute) Acute head trauma (Acute) Weakness (Acute) Right rotator cuff tear Degenerative arthritis of knee, bilateral Contusion of left knee Left knee DJD Fracture of metacarpal of left hand, closed Right rotator cuff tear arthropathy Gait disturbance Bilateral primary osteoarthritis of knee Closed fracture of greater trochanter of left femur (Acute) Dementia Dementia Chronic hyponatremia Recurrent falls Multiple rib fractures (Acute) COVID-19 (Acute) Type 2 diabetes mellitus Cervical spinal stenosis Cervical radiculopathy HTN (hypertension) Osteoarthritis of knees, bilateral Hypothyroid (Chronic) Vitamin B12 deficiency Carotid artery plaque (Acute) 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) Spondylolisthesis, acquired (Acute) Skin abnormality (Acute) Osteoporosis (Acute) Glaucoma (Acute) Esophageal reflux (Acute) Dyslipidemia (Acute) Disc degeneration, lumbosacral (Acute) Medical History DVT prophylaxis Thrombocytosis Hypochloremia Acute hyponatremia Unsteady gait Signs and symptoms involving cognition Numbness of left foot Colon cancer screening Surgical History History of tubal ligation Family History Sister Breast cancer Father Myocardial infarction Other No pertinent family history Denies family history of Colon cancer Ovarian cancer Prostate cancer Social History Smoking Status: Never smoker Second Hand Exposure: No; Do You Dip or Chew Tobacco: No; Hx Alcohol Use: No Hx Substance Use: No Preferred Language: Spanish Communication Ability: Effective Visual Impairment: No Limitations Hearing Ability: Normal Education Site Manager Required: No Beliefs That Will Affect Care: None marital status: Current Living Situation: Spouse Current Living Situation Comment: HOME HEALTH AIDE Feels Safe at Home: Yes Safety Concerns: Feels Safe At This Time Seatbelt Use: always Assistive Devices: Cane and Glasses Assistive Devices Comment: pt uses a cane occasionally Review of Systems All systems reviewed & are unremarkable except as noted in HPI & below. Physical Exam . Results & Data Results & Data Laboratory Results . Diagnostic Findings . PG Care Time/CCT Total # of Minutes Spent Total Time Spent with Patient: Total time spent is greater than 50% in coordination of care (as documented) at patient's floor/unit and/or counseling patient: Coding Level of Care Code 86967 IN/OBS CONSULT LVL 3,45M
[2024-06-30] MEDS: INSULIN ASPART PER UNIT CHARGE SC SCH (20:46)
[2024-06-30] MEDS: TRAVOPROST Z 0.004% OPH SOLN 2.5 ML BTL OP SCH (20:47)
[2024-06-30] MEDS: ENOXAPARIN INJ 30 MG/0.3 ML SYR SQ SCH (20:48)
--- OUTSIDE RECORDS SUMMARY | 2024-06-30 23:31 | External Medical Summary | Summary of Care ---
Author Name Unknown Organization [facility] Address [address] [place] [address] Phone [phone] Care Team Providers Care Steel Heater Name Role Phone Tabitha Hall MD Primary Care Provider + Reason for Visit * Reason Comments Diabetes Follow-Up Dosage Adjustment In Person (Anticoag Cl inic) Encounter Details Date Type Department Care Team (Latest Contact Info) Description 06/29/2024 8:50 AM EDT Office Visit Pharmacy, [facility] [address] [place] [address] Pharmacist1, [facility] [address] [facility] [place] [address] Controlled type 2 diabetes mellitus with hyperglycemia, without long-term current use of insulin ([facility])*; DM (diabetes mellitus), type 2, uncontrolled, with hyperosmolarity (HCC) Allergies Active Allergy Reactions Criticality Noted Date Comments Ibuprofen 06/11/2016 Alendronate Sodium 08/13/2016 Celecoxib Nausea/vomiting 12/22/2013 Cheese Flavor 08/27/2013 Monosodium Glutamate 08/13/2016 Penicillin G 06/11/2016 Salicylates Unknown 05/17/2021 Sulfa Antibiotics 06/11/2016 documented as of this encounter (statuses as of 06/29/2024) Medications Medication Sig Dispensed Refills Start Date End Date Status Cholecalciferol 2000 UNITS TABS Take by mouth. 1 daily Active vitamin c (ASCORBIC ACID) 500 MG Tablet Take by mouth. 1 daily Active Diclofenac Sodium 1 % Transdermal GelIndications:DDD (degenerative disc disease), lumbosacral Apply 2 g topically to affected area 4 times a day. Apply locally twice daily at shoulder or affected area. 50 g 3 08/17/2020 Active CoQ10 100 MG Oral Capsule Take by mouth daily. Active calcium PHOSphate 100 MG/ML OR SUSP daily. Active Travoprost (RENEA Free) 0.004 % Ophthalmic Solution (Travatan Z) Instill 2 Drops into both eyes at bedtime. 1 daily 2.5 mL 2 06/07/2021 Active Magnesium 250 MG Oral Tablet Take 1 Tablet by mouth in the morning. Takes at night Friday . Active BD Insulin Syringe 25G X 5/8" 1 ML (Insulin Syringe-Needle U-100)Indications:Con trolled type 2 diabetes mellitus with hyperglycemia, without long-term current use of insulin ([facility]),Type 2 diabetes mellitus with hemoglobin A1c goal of less than 8.0% ([facility]) Use to inject B-12 injection once a month. 10 Each 1 08/23/2022 Active Vitamin B12 100 MCG Oral Tablet Take by mouth daily. Active Iron Glycinate 29 MG Oral Capsule Take by mouth. 10/20/23 Takes Friday in evening Active Sodium Chloride 1 GM Oral Tablet Take 1 Tablet by mouth in the morning. 60 Tablet 5 04/23/2023 Active DULoxetine HCl 60 MG Oral Capsule Delayed Release Particles (Cymbalta)Indications :Generalized OA,Recurrent major depressive disorder, in partial remission (HCC) TAKE ONE CAPSULE BY MOUTH EVERY MORNING along with duloxetine 30 mg capsule ( total dose 90mg) ,DO NOT CUT, CRUSH, OR CHEW. 90 Capsule 3 09/09/2023 Active Additional Information Patient taking differently: TAKE ONE CAPSULE BY MOUTH EVERY MORNING along with duloxetine 30 mg capsule ( total dose 90mg) ,DO NOT CUT, CRUSH, OR CHEW. Takes in evening, Reported on 10/20/2023 metFORMIN HCl ER 500 MG Oral Tablet Extended Release 24 Hour (Glucophage XR)Indications:Contro lled type 2 diabetes mellitus with hyperglycemia, without long-term current use of insulin ([facility]) TAKE ONE TABLET BY MOUTH TWICE A DAY WITH MORNING AND EVENING MEALS 180 Tablet 3 09/25/2023 Active Cyanocobalamin 1000 MCG/ML Injection Solution (Cyanocobalamin)Indic ations:B12 deficiency INJECT 1000MCG DIRECTED EVERY 30 DAYS 1 mL 11 12/25/2023 Active BD SafetyGlide Needle 25G X 1" (Needle (Disp)) Use for vitamin b12 injections monthly. 100 Each 5 01/12/2024 Active Rosuvastatin Calcium 5 MG Oral Tablet (Crestor)Indications: Hyperlipidemia with target LDL less than 100 Take 1 Tablet by mouth daily. 90 Tablet 1 02/11/2024 Active Levothyroxine Sodium 25 MCG Oral Tablet (Levoxyl)Indications: Acquired hypothyroidism 2 pills once daily Friday to and take one oull Friday to Friday.(at least 30 min prior to breakfast or other meds) 90 Tablet 3 03/17/2024 Active FreeStyle French 3 [place] DeviceIndications:DM (diabetes mellitus), type 2, uncontrolled, with hyperosmolarity (HCC) Use as directed. 1 Each 03/29/2024 Active FreeStyle French 3 SensorIndications:DM (diabetes mellitus), type 2, uncontrolled, with hyperosmolarity (HCC) Use as directed. Change every 2 weeks. Diagnosis: Type 2 DM 2 Each 04/12/2024 Active Dulaglutide 0.75 MG/0.5ML Subcutaneous Solution Pen-injector (Trulicity)Indication s:DM (diabetes mellitus), type 2, uncontrolled, with hyperosmolarity (HCC),Controlled type 2 diabetes mellitus with hyperglycemia, without long-term current use of insulin (HCC) Inject 0.75 mg under the skin once a week. 2 mL 04/12/2024 Active DULoxetine HCl 30 MG Oral Capsule Delayed Release Particles (Cymbalta) TAKE ONE CAPSULE BY MOUTH EVERY MORNING ALONG WITH 60MG (TOTAL DOSE 90MG) DO NOT CUT, CRUSH, OR CHEW 30 Capsule 5 04/23/2024 Active documented as of this encounter (statuses as of 06/29/2024) Active Problems Problem Noted Date Diagnosed Date [...] as of this encounter (statuses as of 06/29/2024) Immunizations Name Administration Dates Next Due COVID-19 mRNA, LNP-s, No Pre serve, 2-Dose Series (Moderna) 06/25/2024,01/22/2022,06/25/2021,12/01,11/03/2020 COVID-19, mRNA, LNP-s, PF, B ooster, 100mcg/0.5mg (Moderna) 06/17/2022 Covid-19, Mrna, Lnp-s, Pf, B ivalent, 50 Mcg, IM, 12 yrs and above (Moderna) 02/21/2023 Pneumococcal Conjugate Vacc, 13 Valent (Prevnar) 03/21/2015 Pneumococcal Polysaccharide PPV23 (Pneumovax) 06/07/2021,01/07/2018 Seasonal Influenza Virus Vac cine, Unspecified Formulation 06/06/2020,07/29/2019,07/10/2018,07/17,07/13/2016,08/07/2015 Seasonal Influenza, High Dos e, Trivalent, PF, IM (Fluzone HD) 06/06/2020,07/29/2019 Seasonal Influenza, Quadriva lent Hd (Fluzone Hd) 06/25/2024,06/12/2023 Seasonal Influenza, Quadriva lent Hd, 65+ Yrs 07/24/2021 Seasonal Influenza, Quadriva lent, No Preserve, IM 07/06/2020 Seasonal Influenza, Trivalen t, (IIV3), with Preserv, (Fluzone) 08/07/2015 TDAP (age 10 and older)(Boostrix) 06/27/2023 TDAP, Age 7 and older, IM (Adacel) 06/03/2012 Varicella Zoster Vaccine (Adult) 10/06/2009 Zoster [...] money to get more. Never true 01/14/2023 Utilities Answer Date Recorded Do you have trouble paying y our heating, water, or electric bill? (Adult - for ages 18 years and over) Not on file 03/23/2024 Is your family able to pay t he heat, water, or electric bill? (Household - for ages 0-17 years) Not on file 03/23/2024 Does your family have access to good internet? (Household - for ages 0-17 years) Not on file 03/23/2024 Social Connections Answer Date Recorded How often do you feel lonely or isolated from those around you? (Adult - for ages 18 years and over) Not on file 03/23/2024 Sex and Gender Information Value Date Recorded Sex Assigned at Female 08/17/2020 3:07 PM EST Gender Identity Female 08/17/2020 3:07 PM EST Sexual Orientation Straight 08/17/2020 3: 07 PM EST Job Start Date Occupation Industry Not on file Not on file Not on file documented as of this encounter Progress Notes * Yunior Phillips, [facility] - 06/29/2024 8:48 AM EDT Images from the original note were not included. Medication Therapy Disease [facility] - Diabetes Management Progress Note Lilibeth Kong, identified by name and date of , is a 84 year old female being seen for diabetes management/education. Patient presents for return diabetic visit. DIABETES: Current diabetic medications: Metformin ER 500mg 1 tabs BID with meals (Dr. Hall did not want dose decreased) STOP: Glipizide ER 5mg daily Trulicity 0.75mg weekly. Medication Injection Site: N/A Lifestyle: Diet: unchanged History of Treatment Barriers: Lifestyle: None Therapy considerations: None Medication: None Glucose Review/SMBG: Readings obtained from patient device Hypoglycemia: Does your blood sugar go below 70 mg/dL? Yes, none since stopping Glipizide Hyperglycemia symptoms present: polyurea, polydipsia, confusion Goal <8 Recent Labs Units 06/28/24 1356 03/05/24 0829 06/12/23 0930 HEMOGLOBIN A1C - [facility] % 7.9* 10.7* 7.1* Recent Labs Units 06/28/24 1356 03/05/24 0829 10/13/23 1141 ESTIMATED GLOMERULAR FILTRATION RATE - [facility] mL/min 84 85 88 CREATININE - [facility] mg/dL 0.7 0.7 0.6 Lab Results Component Value Date/Time CREATININE - [facility] 0.7 06/28/2024 01:56 PM CREATININE - [facility] 0.7 03/05/2024 08:29 AM CREATININE - [facility] 0.6 10/13/2023 11:41 AM CREATININE - [facility] 0.5 10/12/2020 10:00 AM CREATININE - [facility] 0.6 08/22/2020 12:58 PM CREATININE - [facility] 0.6 08/17/2020 04:32 PM CREATININE CLEARANCE - [facility] 90 11/02/2021 11:53 AM CREATININE, 24 HOUR URINE - [facility] 0.589 (L) 11/02/2021 11:53 AM CREATININE, RANDOM URINE - [facility] 97 03/05/2024 08:32 AM CREATININE, RANDOM URINE - [facility] 83 01/14/2023 10:30 AM CREATININE, RANDOM URINE - [facility] 45 04/15/2022 07:40 AM CREATININE, RANDOM URINE - [facility] 24 08/19/2020 12:31 PM CREATININE, URINE 23 10/29/2021 02:45 PM CREATININE, URINE 24 HOUR 0.357 (L) 10/29/2021 02:45 PM HYPERTENSION: Patient on ACEi/ARB: no, not indicated, BP at goal BP Readings from Last 3 Encounters: 06/28/24 118/64 05/04/24 118/60 03/17/24 124/58 Blood pressure at goal: yes HYPERLIPIDEMIA: Patient is taking moderate or high intensity statin: yes, Rosuvastatin 3 days a week. Wanted to start fenofibrate but decreased kidney function HEALTH MAINTENANCE REVIEW: Health Maintenance Due Topic Date Due Adult Wellness Visit Never done Diabetic Foot Exam 01/15/2024 Depression Monitoring 01/15/2024 *BISPHONATE OR OTHER ACCEPTABLE MEDICATION NEEDED FOR OSTEOPOROSIS (REFER TO SMARTSET #1146) Never done Influenza Vaccine (FLU shot) (1) 06/06/2024 COVID-19 Vaccine ( season) 2024 ASSESSMENT & PLAN: ICD-10-CM 1. Controlled type 2 diabetes mellitus with hyperglycemia, without long-term current use of insulin(HCC) E11.65 BG Readings - Blood sugars controlled. Lows stopped occurring after Glipizide stopped Medications - Reviewed current regimen, patient is adherent to regimen. Diet, Exercise, Lifestyle - No significant lifestyle changes since last visit. Discussed with patient today. Patient is agreeable to wear French 3 CGM. Patient unable to get refills due to recall. Gave a Dexcom G7 for them to use and will send an Rx for either French 3 or G7 to pharmacy that has them. Patient aware to contact clinic if any hypoglycemia before next visit. MEDICATION CHANGES: no change Diabetic Medications: Metformin ER 500mg 1 tabs BID with meals (Dr. Hall did not want dose decreased) Trulicity 0.75mg weekly HEALTH MAINTENANCE INTERVENTIONS: Labs: Up to Date Immunizations: Up to Date Foot Exam: Complete with next PCP visit on 06/29 Eye Exam: Up to Date Annual Wellness Visit: needs scheduled I spent a total of 20-29 minutes (exact time 23 mins) on the date of service in preparation, delivery, and documentation of the care provided to Lilibeth Kong excluding any time spent in the performance of separately billed services or time spent by another provider/QHP. FOLLOW UP: Return to clinic in 3 months 10/05/2024 Yunior Sanchez RPh, CDE Clinical Pharmacist - [facility] 06/29/2024, 8:49 AM documented in this encounter Plan of Treatment Upcoming Encounters Date Type Department Care Team (Late st Contact Info) Description 07/02/2024 11:20 AM EDT Office Visit [facility] [address] [place] [address] Hill Venegas MD [address] [place] [address] 07/07/2024 11:00 AM EDT Office Visit Podiatry [facility] [address] [place] [address] Jossie Ashraf, DPM [address] [facility] [place] [address] 08/18/2024 10:00 AM EST Imaging [place]iology, [address] [place] [address] 08/18/2024 10:40 AM EST Office Visit Rheumatology [address] [place] [address] Agustin Erickson MD [address] [place] [address] [place] [address] 10/05/2024 9:00 AM EST Office Visit Pharmacy, [facility] [address] [place] [address] Pharmacist1, [facility] [address] [facility] [place] [address] 11/10/2024 11:00 AM EST Office Visit General Internal Medicine [facility] [place] [address] [place], [place] [address] Tabitha Hall MD [facility] [place] [address] 12/27/2024 2:20 PM EDT Office Visit Neurology [facility] [place] [address] [place], [place] [address] Alvin Aragon MD [address] [facility] [place] [address] Scheduled Orders Name Type Priority Associated Diagnoses Order Schedule HEMOGLOBIN A1C, POINT OF CARE Point of Care Testing - Unsolicited Results Routine Controlled type 2 diabetes mellitus with hyperglycemia, without long-term current use of insulin (HCC) Expected: 06/29/2024, Expires: 06/29/2025 Health Maintenance Due Date Last Done Comments Adult Wellness Visit 02/03/2004 Depression Monitoring 01/15/2024 01/14/2023 Diabetic Foot Exam 01/15/2024 01/14/2023, 0 06/07/2021, 07/27/2020 *BISPHONATE OR OTHER ACCEPTABLE MEDICATION NEEDED FOR OSTEOPOROSIS (REFER TO SMARTSET #1146) 03/19/2024 DXA Scan 08/07/2024 08/07/2022, 07/31/2020 COVID-19 Vaccine ( season) 2024 06/25/2024, 02/21/2023, 06/17/2022, Additional history exists HbA1c 12/26/2024 06/28/2024, 02/05, 06/12/2023, Additional history exists Albumin/Creatinine Ratio 03/05/2025 024, 01/14/2023, 04/15/2022, Additional history exists Diabetic Eye Exam 04/14/2025 04/14/2024, , 01/25/2021, Additional history exists TSH 05/04/2025 05/04/2024, 02/05, 06/12/2023, Additional history exists DTap/Tdap Vaccines (3 - Td or Tdap) 06/27/2033 06/27/2023, 06/03/2012 Zoster Vaccines Completed 07/01/2019, 03/06, 10/06/2009 Pneumococcal Vaccine: 65+ Years Completed 06/07/2021, 01/07/2018, 03/21/2015 Influenza Vaccine (FLU shot) Completed , 06/12/2023, 07/24/2021, Additional history exists VITAMIN D LEVEL ONCE IN A LIFETIME-USE SMARTSET# 08526 Completed 06/28/2024, 06/12/2023, 10/24/2021, Additional history exists HPV (Gardasil) Vaccine Aged Out No lo nger eligible based on patient's age to complete this topic Hepatitis B Vaccine Aged Out No longe r eligible based on patient's age to complete this topic MENINGOCOCCAL (MENACTRA/MENVEO) Aged Out No longer eligible based on patient's age to complete this topic documented as of this encounter Medical Devices Not on filedocumented as of this encounter Visit Diagnoses Diagnosis Controlled type 2 diabetes mellitus with hyperglycemia, without long-term current use of insulin (HCC)- Primary DM (diabetes mellitus), type 2, uncontrolled, with hyperosmolarity (HCC) Type II or unspecified type diabetes mellitus with hyperosmolarity, uncontrolled documented in this encounter Advance Directives Documents on File Type Date Recorded Patient Hub Associate Expl anation POLST 06/06/2021 ANTOINETTE REESE ORDERS FOR LIFE-SUSTAINING TREATMENT Care Teams Steel Heater Relationship Specialty Start Date End Date Tabitha Hall MD [address] [place] [address] PCP - General Internal Medicine 07/27/20 documented as of this encounter
--- OUTSIDE RECORDS SUMMARY | 2024-06-30 23:31 | External Medical Summary | Summary of Care ---
Author Name Unknown Organization [facility] Address [address] [place] [address] Phone [phone] Care Team Providers Care Mexican Food Cook Name Role Phone Tabitha Hall MD Primary Care Provider + Reason for Visit * Reason Onset Date Comments Appointment 06/30/2024 Encounter Details Date Type Department Care Team (Late st Contact Info) Description 06/30/2024 Telephone General Internal Medicine [facility] 200 [facility] [place] [address] Tabitha Hall MD 200 [place] [address] Appointment Allergies Active Allergy Reactions Criticality Noted Date Comments Ibuprofen 06/11/2016 Alendronate Sodium 08/13/2016 Celecoxib Nausea/vomiting 12/22/2013 Cheese Flavor 08/27/2013 Monosodium Glutamate 08/13/2016 Penicillin G 06/11/2016 Salicylates Unknown 05/17/2021 Sulfa Antibiotics 06/11/2016 documented as of this encounter (statuses as of 06/30/2024) Medications Medication Sig Dispensed Refills Start Date [...] A1c goal of less than 8.0% (HCC) Use to inject B-12 injection once a [...] Tablet 3 03/17/2024 Active FreeStyle French 3 [place] DeviceIndications:DM (diabetes mellitus), type 2, uncontrolled, with [...] OR CHEW 30 Capsule 5 04/23/2024 Active Iron 325 (65 Fe) MG Oral Tablet Take by mouth. Active documented as of this encounter (statuses as of 06/30/2024) Active Problems Problem Noted Date Diagnosed Date DM (diabetes mellitus), type 2, uncontrolled, with hyperosmolarity 06/29/2024 Recurrent major depressive disorder, in partial remission [...] as of this encounter (statuses as of 06/30/2024) Immunizations Name Administration Dates Next Due COVID-19 [...] encounter Miscellaneous Notes * Telephone Encounter - Jeaneth Blanchard OSA - 06/30/2024 8:09 AM EDT Spoke to afia and pt is now scheduled to see ortho today at 2pm * Telephone Encounter - Tabitha Hall MD - 06/30/2024 7:53 AM EDT I saw this patient yesterday and recently she had multiple falls. Patient had swelling and pain at the left knee, difficulty walking, uses walker or cane and came with a caregiver yesterday in the office. Patient does have vertical fracture of left patella which is new. She also has minimally displaced left rib fracture but hip x-ray is okay. Needs referral to be seen by ortho as soon as possible as patient has significant pain, family is concerned she does not prefer going to Emergency Room. Not sure by going to walk in clinic this morning would help her. The contact info we have it in the chart is for her caregiver Afia and we can contact her as she helps the patient with everything. Thanks documented in this encounter Plan of Treatment Upcoming Encounters Date Type Department Care Team (Late st Contact Info) Description 06/30/2024 2:00 PM EDT Office Visit Orthopaedics [facility] [address] [facility] [place] [address] Blake [facility] [address] [facility] [phone] 07/02/2024 11:20 AM EDT Office Visit Nephrology, [facility] 200 [facility] [place] [address] Hill Venegas MD 200 [facility] [place] [address] 07/07/2024 11:00 AM EDT Office Visit Podiatry [facility] 132 [facility] [place] [address] Jossie Ashraf, MARI [address] [place], [place] [address] [address] 08/18/2024 10:00 AM EST Imaging Radiology, [place] [address] [facility] [place] [address] 08/18/2024 10:40 AM EST Office Visit Rheumatology [place] [address] [address] [place] [address] Agustin Erickson MD [address] [place] [address] [place] [address] 10/05/2024 9:00 AM EST Office Visit Pharmacy, [facility] [place] [address] [place], [place] [address] Pharmacist1, [facility] [address] [place], [place] [address] 11/10/2024 11:00 AM EST Office Visit General Internal Medicine [facility] [place] [address] [place] [address] Tabitha Hall MD [address] [facility] [place] [address] 12/27/2024 2:20 PM EDT Office Visit Neurology [facility] [place] [address] [place], [place] [address] Alvin Aragon MD [address] [place], [place] [address] 01/05/2025 9:40 AM EDT Office Visit General Internal [facility] [place] [address] [place], [place] [address] Tabitha Hall MD 200 [facility] [place] [address] Health Maintenance Due Date Last Done Comments [...] D LEVEL ONCE IN A LIFETIME-USE SMARTSET# [id number] Completed 06/28/2024, 06/12/2023, 10/24/2021, Additional history exists [...] Not on filedocumented as of this encounter Advance Directives Documents on File Type Date Recorded Patient Flight Mechanic Expl anation POLST 06/06/2021 POLST [facility] ORDERS FOR LIFE-SUSTAINING TREATMENT Care Teams Mexican Food Cook Relationship Specialty Start Date End Date Tabitha Hall MD [address] [place] [address] PCP - General Internal Medicine 07/27/20 documented as of this encounter
--- OUTSIDE RECORDS SUMMARY | 2024-06-30 23:31 | External Medical Summary | Summary of Care ---
Author Name Unknown Organization [facility] Address [address] [place] [address] Phone [phone] Care Team Providers Care Transformation Coach Name Role Phone Tabitha Hall MD Primary Care Provider + Reason for Visit * Reason Comments Diabetes Follow-Up Dosage Adjustment In Person (Anticoag Cl inic) Encounter Details Date Type Department Care Team (Latest Contact Info) Description 06/29/2024 8:50 AM EDT Office Visit Pharmacy, [facility] [address] [facility] [place] [address] Pharmacist1, [facility] 200 [facility] [place] [address] Controlled type 2 diabetes mellitus with hyperglycemia, without long-term current use of insulin ([facility])*; DM (diabetes mellitus), type 2, uncontrolled, [...] hyperglycemia, without long-term current use of insulin ([facility]),Type 2 diabetes mellitus with hemoglobin A1c goal of less than 8.0% ([facility]) Use to inject B-12 injection once [...] hyperglycemia, without long-term current use of insulin ([facility]) TAKE ONE TABLET BY MOUTH TWICE [...] Tablet 3 03/17/2024 Active FreeStyle French 3 [place] DeviceIndications:DM (diabetes mellitus), type 2, uncontrolled, with [...] as of this encounter Progress Notes * Robbin Phillips [facility] - 06/29/2024 8:48 AM EDT Images from [...] Return to clinic in 3 months 10/05/2024 Robbin Sanchez RPh, C[facility] Clinical Pharmacist - Traffic Signal Mechanic [facility] 06/29/2024, 8:49 AM documented in this encounter Miscellaneous Notes * Addendum Note - Robbin Phillips RPh - 06/29/2024 12:44 PM EDTAddended by: ROBBIN SANCHEZ V on: 06/29/2024 12:44 PM Modules accepted: Level of Service documented in this encounter Plan of Treatment Upcoming Encounters Date Type Department Care Team (Late st Contact Info) Description 07/02/2024 11:20 AM EDT Office Visit Nephrology, [facility] [address] [place], [place] [address] Hill Venegas MD [address] [place], [place] [address] 07/07/2024 11:00 AM EDT Office Visit Podiatry [facility] [address] [place] [address] Jossie Ashraf [facility] [address] [facility] [place] [address] 08/18/2024 10:00 AM EST Imaging Radiology, [place] [address]Lyud[address]ila [facility] [place] [address] 08/18/2024 10:40 AM EST Office Visit Rheumatology [address] [place], [place] [address] Agustin Erickson MD [address] [place] [address] [place], [place] [address] 10/05/2024 9:00 AM EST Office Visit Pharmacy, [facility] [address] [place] [address] Pharmacist1, [facility] [address] [facility] [place] [address] 11/10/2024 11:00 AM EST Office Visit General Internal Medicine [facility] [place] [address] [place] [address] Tabitha Hall MD [address] [facility] [place] [address] 12/27/2024 2:20 PM EDT Office Visit Neurology [facility] [address] [place] [address] Alvin Aragon MD [address] [facility] [place] [address] 01/05/2025 9:40 AM EDT Office Visit General Internal Medicine [facility] [place] [address] [facility] [place] [address] Tabitha Hall MD [address] [facility] [address] [place], [place] [address] Scheduled Orders Name Type Priority Associated Diagnoses [...] 02/05, 06/12/2023, Additional history exists Albumin/Creatinine Ratio 03/05/20252 024, 01/14/2023, 04/15/2022, Additional history exists Diabetic [...] D LEVEL ONCE IN A LIFETIME-USE SMARTSET# 68073 Completed 06/28/2024, 06/12/2023, 10/24/2021, Additional history exists [...] Documents on File Type Date Recorded Patient Consultant Rn Expl anation ANTOINETTE 06/06/2021 ANTOINETTE REESE ORDERS FOR LIFE-SUSTAINING TREATMENT Care Teams Transformation Coach Relationship Specialty Start Date End Date Tabitha Hall MD [address] [place] [address] PCP - General Internal Medicine 07/27/20 documented as of this encounter
--- OUTSIDE RECORDS SUMMARY | 2024-06-30 23:32 | External Medical Summary | Summary of Care ---
Author Name Unknown Organization [facility] Address [address] [place] [address] Phone [phone] Care Team Providers Care Plant Health Manager Name Role Phone Tabitha Hall MD Primary Care Provider + Reason for Visit * Reason Comments Follow Up Encounter Details Date Type Department Care Team (Late st Contact Info) Description 06/28/2024 2:20 PM EDT [facility] [place] [address] [facility] [place] [address] Alvin [facility]agon MD [facility] [address] Memory changes* Allergies Active Allergy Reactions Criticality Noted Date Comments Ibuprofen 06/11/2016 Alendronate Sodium 08/13/2016 Celecoxib Nausea/vomiting 12/22/2013 Cheese Flavor 08/27/2013 Monosodium Glutamate 08/13/2016 Penicillin G 06/11/2016 Salicylates Unknown 05/17/2021 Sulfa Antibiotics 06/11/2016 documented as of this encounter (statuses as of 06/28/2024) Medications Medication Sig Dispensed Refills Start Date [...] Tablet 3 03/17/2024 Active FreeStyle French 3 Tavares DeviceIndications:DM (diabetes mellitus), type 2, uncontrolled, with [...] as of this encounter (statuses as of 06/28/2024) Active Problems Problem Noted Date Diagnosed Date [...] as of this encounter (statuses as of 06/28/2024) Immunizations Name Administration Dates Next Due COVID-19 [...] money to buy more. Never true 01/15/20 Within the past 12 months, t he [...] on file documented as of this encounter Last Filed Vital Signs Vital Sign Reading Time Taken Comments Blood Pressure 118/64 06/28/2024 2:17 PM EDT Pulse 106 06/28/2024 2:17 PM EDT Temperature 37.1 C (98.8 F) 06/28/2024 2:17 PM ED T Respiratory Rate 16 06/28/2024 2:17 PM EDT Oxygen Saturation 100% 06/28/2024 2:17 PM EDT Inhaled Oxygen Concentration - - Weight 43.4 kg (95 lb 11.2 oz) 06/28/2024 2:17 P M EDT Height - - Body Mass Index 23.95 05/04/2024 11:12 AM EDT documented in this encounter Progress Notes * Alvin Aragon MD - 06/28/2024 2:49 PM EDT CLINIC NOTES Neurology [place] [address] [place] [address] [place] [address] Lilibeth [place] [id number] NEUROLOGY OUTPATIENT NOTE 06/28/2024 HISTORY: Lilibeth is 84 years old is right-handed and has had a cognitive impairment issue a slowly progressive type over the last 4-5 years which at her age is likely going to be a mixed affair with vascular and degenerative components. She has a major issue with driving and we have recommended that she not operate a motor vehicle. Her primary care physician was the 1st to do so I agreed and the last visit we were going to have a bus driver supervisor's education individual assess her but apparently this did not happen as the instructor felt that she would be unsafe in the car with the patient Today she is still lobbying to get her license or least permission to drive but all of her family members are on board she has an aide that takes care of her who is also on board and I can not be convinced that she should be operating a motor vehicle She claims that my entire decision was based on her inability to do well on a memory test and she kept saying that I asked her to call for things that she can only recall 1 that is the reason she cannot drive. In the course of the conversation we did do a very brief memory test I asked her to recall 3 unrelated terms gave her the sequence twice she repeated it and then a distractor with a tasks that involved reverse spelling of the word world She was able to get through the reverse spelling after. A full starts but then had absolutely no recall that I asked her to recall the 3 words and was unable to recite any of them She has had some recent falls 1 at a democrat during which she was slightly unfamiliar location and tripped over some stairs and another when apparently yesterday where she fell at home may have struck her head and shoulder and ribs. She has on deck to see her primary care physician tomorrow and really does not have much of a headache she is clearly awake and alert and functioning fairly well but her gait is very slow she has a lot of generalized arthritis particularly need disease at baseline andnow has a sore but not swollen left knee and uses a cane to get around but I think a walker would be better Past Medical History: Diagnosis Date DDD (degenerative disc disease), lumbosacral Diabetes type 2, controlled (HCC) Generalized OA Glaucoma Hypothyroidism Senile osteoporosis Past Surgical History: Procedure Laterality Date LIGATE/CUT OVIDUCT(S) Social History Socioeconomic History Marital status: Spouse name: Not on file Number of children: 4 Years of education: Not on file Highest education level: Not on file Occupational History Not on file Tobacco Use Smoking status: Never Smokeless tobacco: Never Vaping Use Vaping status: Never Used Substance and Sexual Activity Alcohol use: No Drug use: No Sexual activity: Not on file Other Topics Concern Not on file Social History Narrative Not on file Social Determinants of Health Financial Resource Strain: Not on file Food Insecurity: No Food Insecurity (01/14/2023) Hunger Vital Sign Worried About Running Out of Food in the Last Year: Never true Ran Out of Food in the Last Year: Never true Transportation Needs: Not on file Social Connections: Unknown (03/23/2024) Social Connections How often do you feel lonely or isolated from those around you? (Adult - for ages 18 years and over): Not on file Housing Stability: Not on file Family History Problem Relation Name Age of Onset Arthritis Father Heart Disorder Father Other (osteoporosis) Mother Current Outpatient Medications Medication Sig Dispense Refill Cholecalciferol 2000 UNITS TABS Take by mouth. 1 daily Diclofenac Sodium 1 % Transdermal Gel Apply 2 g topically to affected area 4 times a day. Apply locally twice daily at shoulder or affected area. 50 g 3 CoQ10 100 MG Oral Capsule Take by mouth daily. calcium PHOSphate 100 MG/ML OR SUSP daily. Travoprost (RENEA Free) 0.004 % Ophthalmic Solution (Travatan Z) Instill 2 Drops into both eyes at bedtime. 1 daily 2.5 mL 2 Magnesium 250 MG Oral Tablet Take 1 Tablet by mouth in the morning. Takes at night Friday . BD Insulin Syringe 25G X 5/8" 1 ML (Insulin Syringe-Needle U-100) Use to inject B-12 injection oncea month. 10 Each 1 Vitamin B12 100 MCG Oral Tablet Take by mouth daily. Iron Glycinate 29 MG Oral Capsule Take by mouth. 10/20/23 Takes Friday in evening Sodium Chloride 1 GM Oral Tablet Take 1 Tablet by mouth in the morning. 60 Tablet 5 DULoxetine HCl 60 MG Oral Capsule Delayed Release Particles (Cymbalta) TAKE ONE CAPSULE BY MOUTH EVERY MORNING along with duloxetine 30 mg capsule ( total dose 90mg) ,DO NOT CUT, CRUSH, OR CHEW. (Patient taking differently: TAKE ONE CAPSULE BY MOUTH EVERY MORNING along with duloxetine 30 mg capsule( total dose 90mg) ,DO NOT CUT, CRUSH, OR CHEW. Takes in evening) 90 Capsule 3 metFORMIN HCl ER 500 MG Oral Tablet Extended Release 24 Hour (Glucophage XR) TAKE ONE TABLET BY MOUTH TWICE A DAY WITH MORNING AND EVENING MEALS 180 Tablet 3 Cyanocobalamin 1000 MCG/ML Injection Solution (Cyanocobalamin) INJECT 1000MCG DIRECTED EVERY 30 DAYS 1 mL 11 BD SafetyGlide Needle 25G X 1" (Needle (Disp)) Use for vitamin b12 injections monthly. 100 Each 5 Rosuvastatin Calcium 5 MG Oral Tablet (Crestor) Take 1 Tablet by mouth daily. 90 Tablet 1 Levothyroxine Sodium 25 MCG Oral Tablet (Levoxyl) 2 pills once daily Friday to and take one oull Friday to Friday.(at least 30 min prior to breakfast or other meds) 90 Tablet 3 FreeStyle French 3 Sensor Use as directed. Change every 2 weeks. Diagnosis: Type 2 DM 2 Each 11 Dulaglutide 0.75 MG/0.5ML Subcutaneous Solution Pen-injector (TrulicBugHerd) Inject 0.75 mg under the skin once a week. 2 mL 11 DULoxetine HCl 30 MG Oral Capsule Delayed Release Particles (Cymbalta) TAKE ONE CAPSULE BY MOUTH EVERY MORNING ALONG WITH 60MG (TOTAL DOSE 90MG) DO NOT CUT, CRUSH, OR CHEW 30 Capsule 5 vitamin c (ASCORBIC ACID) 500 MG Tablet Take by mouth. 1 daily (Patient not taking: Reported on 06/28/2024) FreeStyle French 3 Tavares Device Use as directed. 1 Each 0 No current facility-administered medications for this visit. Review of patient's allergies indicates: Allergen Reactions Advil [Ibuprofen] Alendronate Sodium Celecoxib Nausea/vomiting Cheese Cheddar Type [Cheese Flavor] Monosodium Glutamate Penicillin G Salicylates Unknown Sulfa Antibiotics REVIEW OF SYSTEMS: With the exception of historical items included in the history of present illness above, a 12-point systems review was normal. PHYSICAL EXAM: BP 118/64 (BP Site: Right Arm, BP Position: Sitting, BP Cuff Size: Regular) | Pulse 106 | Temp 37.1 C (98.8 F) (Tympanic) | Resp 16 | Wt 43.4 kg (95 lb 11.2 oz) | SpO2 100% | BMI 23.95 kg/m | BSA 1.27 m Exam shows her to be alert clearly suffering from some memory issues as per the above example and tangential in her thinking but very determined to keep bringing back the topic of driving. Eye movements are normal there is no real scalp tenderness range of motion about the neck is normal and her gait allowing for the joint pain in the recent knee trauma is stable slightly broad-based due to the pain but is not spastic or ataxic in his no tremor tics choreiform activity no hyporeflexia no extensor toe signs no Cassi signs and her strength testing is reasonably good LABORATORY: No labs are needed IMAGING: No imaging studies are needed at this time but if she does develop or headaches confusion etcetera then she will need to be taken to the Emergency Room for CT scan and she is going to see her primary care physician tomorrow. 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 Chief Complaint Patient presents with Follow Up documented in this encounter Plan of Treatment Upcoming Encounters Date Type Department Care Team (Late st Contact Info) Description 06/29/2024 8:50 AM EDT Office Visit Pharmacy, [facility] [address] [place] [address] Pharmacist1, [facility] 200 [facility] [place] [address] 06/29/2024 9:20 AM EDT Office Visit General Internal Medicine [facility] [address] [place], [place] [address] Tabitha Hall MD [address] [place], [place] [address] 07/02/2024 11:20 AM EDT Office Visit Nephrology, [facility] [address] [place], [place] [address] Hill Venegas MD [address] [place], [place] [address] 07/07/2024 11:00 AM EDT Office Visit Podiatry [facility] 132 [facility] [place] [address] Jossie Ashraf, DPM 400 [place] [address] 08/18/2024 10:00 AM EST Imaging Radiology, [place] [address] [facility] [place], [place] [address] 08/18/2024 10:40 AM EST Office Visit Rheumatology [place] [address] [facility] [place], [place] [address] Agustin Erickson MD [facility] [place], [place] [address] 11/10/2024 11:00 AM EST Office Visit General Internal Medicine [facility] [address] [place], [place] [address] Tabitha Hall MD [address] [place] [address] 12/27/2024 2:20 PM EDT Office Visit Neurology [facility] [address] [place], [place] [address] Alvin Aragon MD [address] [place], [place] [address] Health Maintenance Due Date Last Done Comments Adult Wellness Visit 02/03/2004 Depression Monitoring 01/15/2024 01/14/2023 Diabetic Foot Exam 01/15/2024 01/14/2023, 0 06/07/2021, 07/27/2020 *BISPHONATE OR OTHER ACCEPTABLE MEDICATION NEEDED FOR OSTEOPOROSIS (REFER TO SMARTSET #1146) 03/19/2024 COVID-19 Vaccine ( season) 2024 02/21/2023, 06/17/2022, 01/22/2022, Additional history exists Influenza Vaccine (FLU shot) (#1) 2024 06/12/2023, 07/24/2021, 07/06/2020, Additional history exists DXA Scan 08/07/2024 08/07/2022, 07/31/2020 HbA1c 09/04/2024 03/05/2024, 090 04/2023, 04/23/2023, Additional history exists Albumin/Creatinine Ratio 03/05/2025 024, 01/14/2023, 04/15/2022, Additional history exists Diabetic Eye Exam 04/14/2025 04/14/2024, , 01/25/2021, Additional history exists TSH 05/04/2025 05/04/2024, 0510/2023, 06/12/2023, Additional history exists DTap/Tdap Vaccines (3 - Td or Tdap) 06/27/2033 06/27/2023, 06/03/2012 Zoster Vaccines Completed 07/01/2019, 03/06, 10/06/2009 Pneumococcal Vaccine: 65+ Years Completed 06/07/2021, 01/07/2018, 03/21/2015 VITAMIN D LEVEL ONCE IN A LIFETIME-USE SMARTSET# 12543 Completed 06/12/2023, 10/24/2021, 08/17/2020, Additional history exists HPV (Gardasil) Vaccine Aged [...] as of this encounter Visit Diagnoses Diagnosis Memory changes- Primary Memory loss documented in this encounter Advance Directives Documents on File Type Date Recorded 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
--- OUTSIDE RECORDS SUMMARY | 2024-06-30 23:32 | External Medical Summary ---
Author Name Unknown Address Unknown Organization K09:[facility] [place] [address] Laboratory Report Ordering Provider Test Date Status ABDIAS LIVINGSTON 06/28/2024 13:56:11 Final Observation Date Value Abnormality Reference (Units ) Status BUN 06/28/2024 13:56:11 8 6-20 (mg/dL) Final Creatinine 06/28/2024 13:56:11 0.7 0.5-1.0 (mg/dL) Final Glomerular filtration rate/1.73 sq M.predicted [Volume Rate/Area] in Serum, Plasma or Blood by Creatinine-based formula (CKD-EPI) 06/28/2024 13:56:11 84 >=60 (mL/min) Final eGFR is calculated based on the CKD-EPI 2020 equation. Sodium 06/28/2024 13:56:11 131 Below low normal 135 -146 (mmol/L) Final Potassium 06/28/2024 13:56:11 4.3 3.5-5.1 (m mol/L) Final Cl 06/28/2024 13:56:11 94 Below low normal 98- 107 (mmol/L) Final CO2 06/28/2024 13:56:11 23 22-32 (mmo l/L) Final Anion gap 06/28/2024 13:56:11 14 7-15 (mmol /L) Final Glucose 06/28/2024 13:56:11 204 Above high normal 70 -120 (mg/dL) Final Calcium 06/28/2024 13:56:11 9.7 8.4-10.2 ( mg/dL) Final Albumin 06/28/2024 13:56:11 4.4 3.8-5.0 (g /dL) Final Phosphate 06/28/2024 13:56:11 3.6 2.5-4.8 (m g/dL) Final Performing Location [facility] [place] [address]
--- OUTSIDE RECORDS SUMMARY | 2024-06-30 23:32 | External Medical Summary | Summary of Care ---
Author Name Unknown Organization [facility] Address [address] [place] [address] Phone [phone] Care Team Providers Care Bit Grinder Name Role Phone Tabitha Hall MD Primary Care Provider + Reason for Visit * Reason Comments Outpatient Testing Encounter Details Date Type Department Care Team (Late st Contact Info) Description 06/28/2024 1:50 PM EDT Laboratory Laboratory [facility] [place] [address] [place] [address] [facility] 200 [facility] [place] [address] Senile osteoporosis; SIADH (syndrome of inappropriate ADH production) ([facility]); Controlled type 2 diabetes mellitus with hyperglycemia, without long-term current use of insulin ([facility]) Allergies Active Allergy Reactions Criticality Noted Date [...] hyperglycemia, without long-term current use of insulin ([facility]),Type 2 diabetes mellitus with hemoglobin A1c goal of less than 8.0% ([facility]) Use to inject B-12 injection once a [...] hyperglycemia, without long-term current use of insulin ([facility]) TAKE ONE TABLET BY MOUTH TWICE A [...] Tablet 3 03/17/2024 Active FreeStyle French 3 [place] DeviceIndications:DM (diabetes mellitus), type 2, uncontrolled, with [...] on file documented as of this encounter Plan of Treatment Upcoming Encounters Date Type Department Care Team (Late st Contact Info) Description 06/28/2024 2:20 PM EDT Office Visit Neurology [facility] [address] [place] [address] Alvin Aragon MD [address] [place] [address] Arrived 06/29/2024 8:50 AM EDT Office Visit Pharmacy, [facility] [address] [place] [address] Pharmacist1, [facility] [address] [place] [address] 06/29/2024 9:20 AM EDT Office Visit General Internal Medicine [facility] [address] [place] [address] Tabitha Hall MD [address] [place], [place] [address] 07/02/2024 11:20 AM EDT Office Visit Nephrology, [facility] 200 [facility] [place], [place] [address] Hill Venegas MD 200 [facility] [place], [place] [address] 07/07/2024 11:00 AM EDT Office Visit Podiatry [facility] 132 [place] [place] [address] Jossie Ashraf, MARI 400 [facility] [place] [address] 08/18/2024 10:00 AM EST Imaging Radiology, [address] [place] [address] 08/18/2024 10:40 AM EST Office Visit Rheumatology [address] [place], [place] [address] Agustin Erickson MD [address] [place] [address] [place], [place] [address] 11/10/2024 11:00 AM EST Office Visit General Internal Medicine [facility] 200 [facility] [place], [place] [address] Tabitha Hall MD 200 [facility] [place], [place] [address] Pending Results Name Type Priority Associated Diagnoses Date /Time 25-HYDROXY VITAMIN D Lab Routine Senile osteoporosis 06/28/2024 1:56 PM EDT RENAL FUNCTION PANEL Lab Routine SIADH (syndrome of inappropriate ADH production) ([facility]) 06/28/2024 1:56 PM EDT HEMOGLOBIN A1C Lab Routine Controlled type 2 diabetes mellitus with hyperglycemia, without long-term current use of insulin ([facility]) 06/28/2024 1:56 PM EDT Health Maintenance Due Date Last Done Comments [...] D LEVEL ONCE IN A LIFETIME-USE SMARTSET# [id number] Completed 06/12/2023, 10/24/2021, 08/17/2020, Additional history exists [...] as of this encounter Visit Diagnoses Diagnosis Senile osteoporosis 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
--- OUTSIDE RECORDS SUMMARY | 2024-06-30 23:32 | External Medical Summary | Summary of Care ---
Author Name Unknown Organization [facility] Address [address] [place] [address] Phone [phone] Care Team Providers Care Highway Painter Name Role Phone Tabitha Hall MD Primary Care Provider + Reason for Visit * Reason Onset Date Comments Advice 05/17/2024 Encounter Details Date Type Department Care Team (Late st Contact Info) Description 05/17/2024 Telephone General Internal Medicine [facility] [address] [place] [address] Tabitha Hall MD [address] [place] [address] Advice Allergies Active Allergy Reactions Criticality Noted Date Comments Ibuprofen 06/11/2016 Alendronate Sodium 08/13/2016 Celecoxib Nausea/vomiting 12/22/2013 Cheese Flavor 08/27/2013 Monosodium Glutamate 08/13/2016 Penicillin G 06/11/2016 Salicylates Unknown 05/17/2021 Sulfa Antibiotics 06/11/2016 documented as of this encounter (statuses as of 05/20/2024) Medications Medication Sig Dispensed Refills Start Date [...] hemoglobin A1c goal of less than 8.0% ([facility]) Use to inject B-12 injection once a [...] hyperglycemia, without long-term current use of insulin ([facility]) TAKE ONE TABLET BY MOUTH TWICE A [...] Tablet 3 03/17/2024 Active FreeStyle [place] 3 [place] DeviceIndications:DM (diabetes mellitus), type 2, uncontrolled, with [...] as of this encounter (statuses as of 05/20/2024) Active Problems Problem Noted Date Diagnosed Date [...] as of this encounter (statuses as of 05/20/2024) Immunizations Name Administration Dates Next Due COVID-19 [...] 06/06/2020,07/29/2019 TDAP (age 10 and older)(Boostrix) 06/27/2023 TDAP, [...] encounter Miscellaneous Notes * Telephone Encounter - Betsy Swain OSA - 05/20/2024 3:02 PM EDT Marzena from [facility] called in stating they haven't received the office notes in regardsto insulin. I am refaxing this over to them. Update this has been faxed and confirmed * Telephone Encounter - Yunior Phillips RPh - 05/20/2024 7:45 AM EDT Patient Phone Numbers MTM has not seen any fax but will fax the last MTM notes showing low BG and also Dr. Hall's last visit (05/04/24). Yunior Sanchez RPh, [facility] Clinical Pharmacist [facility] 05/20/2024, 7:46 AM * Telephone Encounter - Amita Reynoso LPN - 05/19/2024 3:38 PM EDT Has MTM seen any papers regarding this? Has pt used this before do you know? * Telephone Encounter - Asia Armas OSA - 05/19/2024 9:28 AM EDT Eli calling from [facility] asking if information/pt's last office note can be faxed to them so pt qualifies for supplies. They need to know if pt is injecting insulin and if she is havinghypoglycemic events. Can you please advise? * Telephone Encounter - Lavonne Granados OSA - 05/17/2024 12:11 PM EDT Eli bernardo, states they need to know if this pt is currently using insulin? Has she had any hypoglycemic events? They faxed notes to Dr Hall as to what they will need. They will need an addendumto this. [phone] FAX documented in this encounter Plan of Treatment Upcoming Encounters Date Type Department Care Team (Late st Contact Info) Description 06/28/2024 2:20 PM EDT [facility] [address] [place] [address] Alvin Aragon MD [address] [place] [address] 06/29/2024 8:50 AM EDT Office Visit Pharmacy, [facility] [address] [place] [address] Pharmacist1, [facility] [address] [place] [address] 06/29/2024 9:20 AM EDT Office Visit General Internal Medicine [facility] [address] [place] [address] Tabitha Hall MD [address] [place], [place] [address] 07/02/2024 11:20 AM EDT Office Visit Nephrology, [facility] [address] [place], [place] [address] Hill Venegas MD [address] [place], [place] [address] 07/07/2024 11:00 AM EDT Office Visit Podiatry [facility] [address] [facility] [place] [address] Jossie Ashraf, [facility] [address] [facility] [place] [address] 08/18/2024 10:00 AM EST Imaging Radiology, [address] [place] [address] 08/18/2024 10:40 AM EST Office Visit Rheumatology [address] [place], [place] [address] Agustin Erickson MD [address] [place] [address] [place], [place] [address] 11/10/2024 11:00 AM EST Office Visit General Internal Medicine [facility] [address] [place], [place] [address] Tabitha Hall MD [address] [place], [place] [address] Health Maintenance Due Date Last Done Comments Adult Wellness Visit 02/03/2004 COVID-19 Vaccine ( season) 2023 02/21/2023, 06/17/2022, 01/22/2022, Additional history exists Depression Monitoring 01/15/2024 01/14/2023 Diabetic Foot Exam 01/15/2024 01/14/2023, 0 06/07/2021, 07/27/2020 *BISPHONATE OR OTHER ACCEPTABLE MEDICATION NEEDED FOR OSTEOPOROSIS (REFER TO SMARTSET #1146) 03/19/2024 Influenza Vaccine (FLU shot) (#1) 2024 06/12/2023, 07/24/2021, 07/06/2020, Additional history exists DXA Scan 08/07/2024 08/07/2022, 07/31/2020 HbA1c 09/04/2024 03/05/2024, 09/0 04/2023, 04/23/2023, Additional history exists Albumin/Creatinine Ratio 03/05/2025 024, 01/14/2023, 04/15/2022, Additional history exists Diabetic Eye Exam 04/14/2025 04/14/2024, , 01/25/2021, Additional history exists TSH 05/04/2025 05/04/2024, 02/05, 06/12/2023, Additional history exists DTaP,Tdap,and Td Vaccines (3 - Td or Tdap) 06/27/2033 06/27/2023, 06/03/2012 Zoster Vaccines Completed 07/01/2019, 03/06, 10/06/2009 Pneumococcal Vaccine: 65+ Years Completed 06/07/2021, 01/07/2018, 03/21/2015 VITAMIN D LEVEL ONCE IN A LIFETIME-USE SMARTSET# 38795 Completed 06/12/2023, 10/24/2021, 08/17/2020, Additional history exists [...] Documents on File Type Date Recorded Patient District Leader Expl anation POLST 06/06/2021 POLST PENNSYLVA HUGH ORDERS FOR LIFE-SUSTAINING TREATMENT Care Teams Highway Painter Relationship Specialty Start Date End Date Tabitha Hall MD [address] [place] [address] PCP - General Internal Medicine 07/27/20 documented as of this encounter
--- OUTSIDE RECORDS SUMMARY | 2024-06-30 23:32 | External Medical Summary ---
Author Name Unknown Address Unknown Organization [id number]:[facility] [place] [address] [place] [address] Laboratory Report Ordering Provider Test Date Status LLOYD PERKINS 05/04/2024 12:11:03 Final Observation Date Value Abnormality Reference (Units ) Status Iron 05/04/2024 12:11:03 81 33-151 (ug /dL) Final Iron-binding capacity 05/04/2024 12:11:03 380 250-425 (ug/dL) Final Transferrin Sat % 05/04/2024 12:11:03 21 15 -55 (%) Final Performing Location [facility] - [address] [place] [address]
--- OUTSIDE RECORDS SUMMARY | 2024-06-30 23:32 | External Medical Summary ---
Author Name Unknown Address Unknown Organization [id number]:[facility]ATORY [facility] [place] - [address] [facility] [address] Laboratory Report Ordering Provider Test Date Status LLOYD PERKINS 06/28/2024 13:56:11 Final Observation Date Value Abnormality Reference (Units ) Status HbA1C 06/28/2024 13:56:11 7.9 Above high normal 4. 0-5.6 (%) Final The use of HbA1c to monitor glycemic status is based on normal hemoglobin and HbA composition. This test should not be used in patients with abnormal hemoglobin that affects the half life of the red blood cell or the in vivo glycation rates. Glucose, estimated average 06/28/2024 13:56:11 180 Above high normal <126 (mg/dL) [place] Performing Location LABORATORY [facility] [place] - [address] [facility] [address]
--- OUTSIDE RECORDS SUMMARY | 2024-06-30 23:32 | External Medical Summary ---
Author Name Unknown Address Unknown Organization [id number]:[facility] [place] [address] Laboratory Report Ordering Provider Test Date Status LLOYD PERKINS 05/04/2024 12:11:03 Final Observation Date Value Abnormality Reference (Units ) Status SYNC LEUKOCYTES IN BLOOD BY AUTOMATED COUNT 05/04/2024 12:11:03 12.08 Above high normal 4.00-10.80 (K/uL) Final Segs 05/04/2024 12:11:03 65.1 40.0-75.0 (%) Final Lymphs % 05/04/2024 12:11:03 23.3 18.0-42.0 (%) Final Monos 05/04/2024 12:11:03 8.1 1.0-11.0 (%) Final Eosinophils 05/04/2024 12:11:03 3.1 0.0-6.0 (%) Final Basos 05/04/2024 12:11:03 0.4 0.0-2.0 (%) Final Absolute Segs 05/04/2024 12:11:03 7.87 Above high normal 1.80-7.70 (K/uL) Final Lymphs, absolute 05/04/2024 12:11:03 2.81 1.00-4.80 (K/ul) Final Monos, Abs 05/04/2024 12:11:03 0.98 0.00-1.10 (K/uL) Final Eos, Abs 05/04/2024 12:11:03 0.37 0.00-0.70 (K/uL) Final Basos, Abs 05/04/2024 12:11:03 0.05 0.00-0.20 (K/uL) Final Performing Location [facility] [address]
--- OUTSIDE RECORDS SUMMARY | 2024-06-30 23:32 | External Medical Summary ---
Author Name Unknown Address Unknown Organization [id number]:LAB[facility]ATORY [facility] [place] - [address] [place] [address] Laboratory Report Ordering Provider Test Date Status LLOYD PERKINS 05/04/2024 12:11:03 Final Observation Date Value Abnormality Reference (Units ) Status TSH 05/04/2024 12:11:03 2.18 0.27-4.20 (uIU/mL) Final Performing Location LAB[facility]ATORY [facility] - [address] [place] [address]
--- OUTSIDE RECORDS SUMMARY | 2024-06-30 23:32 | External Medical Summary ---
Author Name Unknown Address Unknown Organization [id number]:[facility] [place] [address] [facility] [address] Laboratory Report Ordering Provider Test Date Status LLOYD PERKINS 05/04/2024 12:11:03 Final Observation Date Value Abnormality Reference (Units ) Status Ferritin 05/04/2024 12:11:03 40 13-150 (ng /mL) Final Postmenopausal women have hi gher ferritin levels than pre-menopausal women. The above reference interval is based on pre-menopausal women. Performing Location LABORATORY [facility] - [address] [place] [address]
--- OUTSIDE RECORDS SUMMARY | 2024-06-30 23:32 | External Medical Summary | Summary of Care ---
Author Name Unknown Organization [facility] Address [address] [place] [address] Phone [phone] Care Team Providers Care Tree Girdler Name Role Phone Tabitha Hall MD Primary Care Provider + Reason for Referral * Evaluate & Treat - Unlimited Visits (Within 10 days (routine)) - Authorized Specialty Diagnoses / Procedures Referred By Michael awad Referred To Contact Physical Therapy / Physical Medicine And Rehab Diagnoses Balance disorder Tabitha Hall MD [address] [place] [address] Referral ID Status Reason Start Date Expiration Date Visits Requested Visits Authorized [id number] Authorized Specialty Services Required 05/04/[phone] Question Answer Referral Priority Within 10 days (routine) Where should this appointment be scheduled? [facility] Comments Hx of osteoporosis, falls, needs lower extremity strengthening and balance training. Thanks. * Evaluate & Treat - Unlimited Visits (Within 30 days (routine)) - Authorized Specialty Diagnoses / Procedures Referred By Michael awad Referred To Contact Podiatry Diagnoses Dermatophytosis of nail Tabitha Hall MD [address] [place] [address] Referral ID Status Reason Start Date Expiration Date Visits Requested Visits Authorized [id number] Authorized Specialty Services Required 05/04/[phone] Question Answer Referral Priority Within 30 days (routine) Where should this appointment be scheduled? [facility] Which condition are you referring this patient for? In-grown nails Comments Pt has dermatophytosis, toenail changes, pt has uncontrolled Type 2 DM. Thanks. Reason for Visit * Reason Comments Follow Up Discuss blood sugars Encounter Details Date Type Department Care Team (Latest Contact Info) Description 05/04/2024 11:00 AM EDT Office Visit General Internal Medicine [place] 200 [facility] [place] [address] Tabitha Hall MD 200 [facility] [place] [address] Type 2 diabetes mellitus with hemoglobin A1c goal of less than 8.0% ([facility])*; Dermatophytosis of nail; SIADH (syndrome of inappropriate ADH production) ([facility]); Senile osteoporosis; Malaise and fatigue; Iron deficiency anemia, unspecified iron deficiency anemia type; Acquired hypothyroidism; B12 deficiency; Balance disorder Allergies Active Allergy Reactions Criticality Noted Date Comments Ibuprofen 06/11/2016 Alendronate Sodium 08/13/2016 Celecoxib Nausea/vomiting 12/22/2013 Cheese Flavor 08/27/2013 Monosodium Glutamate 08/13/2016 Penicillin G 06/11/2016 Salicylates Unknown 05/17/2021 Sulfa Antibiotics 06/11/2016 documented as of this encounter (statuses as of 05/04/2024) Medications Medication Sig Dispensed Refills Start Date [...] without long-term current use of insulin ([facility]),Type 2 diabetes mellitus with hemoglobin A1c goal of less than 8.0% ([facility]) Use to inject B-12 injection once a month. 10 Each 1 2 Active Vitamin B12 100 MCG Oral Tablet Take by mouth daily. Active Iron Glycinate 29 MG Oral Capsule Take by mouth. 10/20/23 Takes Friday in evening Active Sodium Chloride 1 GM Oral Tablet Take 1 Tablet by mouth in the morning. 60 Tablet 5 3 Active DULoxetine HCl 60 MG Oral Capsule Delayed Release Particles (Cymbalta)Indicatio ns:Generalized OA,Recurrent major depressive disorder, in partial remission (HCC) TAKE ONE CAPSULE BY MOUTH EVERY MORNING along with duloxetine 30 mg capsule ( total dose 90mg) ,DO NOT CUT, CRUSH, OR CHEW. 90 Capsule 3 3 Active Additional Information Patient taking differently: TAKE ONE CAPSULE BY MOUTH EVERY MORNING along with duloxetine 30 mg capsule ( total dose 90mg) ,DO NOT CUT, CRUSH, OR CHEW. Takes in evening, Reported on 10/20/2023 metFORMIN HCl ER 500 MG Oral Tablet Extended Release 24 Hour (Glucophage XR)Indications:Cont rolled type 2 diabetes mellitus with hyperglycemia, without long-term current use of insulin ([facility]) TAKE ONE TABLET BY MOUTH TWICE A DAY WITH MORNING AND EVENING MEALS 180 Tablet 3 3 Active Cyanocobalamin 1000 MCG/ML Injection Solution (Cyanocobalamin)Ind ications:B12 deficiency INJECT 1000MCG DIRECTED EVERY 30 DAYS 1 mL 11 4 Active BD SafetyGlide Needle 25G X 1" (Needle (Disp)) Use for vitamin b12 injections monthly. 100 Each 5 4 Active Rosuvastatin Calcium 5 MG Oral Tablet (Crestor)Indication s:Hyperlipidemia with target LDL less than 100 Take 1 Tablet by mouth daily. 90 Tablet 1 4 Active Levothyroxine Sodium 25 MCG Oral Tablet (Levoxyl)Indication s:Acquired hypothyroidism 2 pills once daily Friday to and take one oull Friday to Friday.(at least 30 min prior to breakfast or other meds) 90 Tablet 3 4 Active FreeStyle French 3 [place] DeviceIndications:D M (diabetes mellitus), type 2, uncontrolled, with hyperosmolarity (HCC) Use as directed. 1 Each 4 Active FreeStyle French 3 SensorIndications:D M (diabetes mellitus), type 2, uncontrolled, with hyperosmolarity (HCC) Use as directed. Change every 2 weeks. Diagnosis: Type 2 DM 2 Each 4 Active Dulaglutide 0.75 MG/0.5ML Subcutaneous [facility] ([facility]Indicati ons:DM (diabetes mellitus), type 2, uncontrolled, with hyperosmolarity (HCC),Controlled type 2 diabetes mellitus with hyperglycemia, without long-term current use of insulin ([facility]) Inject 0.75 mg under the skin once a week. 2 mL 11 4 Active DULoxetine HCl 30 MG Oral Capsule Delayed Release Particles (Cymbalta) TAKE ONE CAPSULE BY MOUTH EVERY MORNING ALONG WITH 60MG (TOTAL DOSE 90MG) DO NOT CUT, CRUSH, OR CHEW 30 Capsule 5 4 Active glipiZIDE ER 2.5 MG Oral Tablet Extended Release 24 Hour (Glucotrol XL)Indications:Cont rolled type 2 diabetes mellitus with hyperglycemia, without long-term current use of insulin (HCC) Take 1 Tablet by mouth in the morning. With 5mg to equal 7.5mg dose). 90 Tablet 3 4 05/04/20 24 Discontinued documented as of this encounter (statuses as of 05/04/2024) Active Problems Problem Noted Date Diagnosed Date [...] as of this encounter (statuses as of 05/04/2024) Immunizations Name Administration Dates Next Due COVID-19 [...] Sign Reading Time Taken Comments Blood Pressure 118/60 05/04/2024 11:12 AM EDT Pulse 98 05/04/2024 11:12 AM EDT Temperature 36.7 C (98 F) 05/04/2024 11:12 AM EDT Respiratory Rate 16 05/04/2024 11:12 AM EDT Oxygen Saturation - - Inhaled Oxygen Concentration - - Weight 45.8 kg (101 lb) 05/04/2024 11:12 AM EDT Height 134.6 cm (4' 5") 05/04/2024 11:12 AM EDT Body Mass Index 25.28 05/04/2024 11:12 AM EDT documented in this encounter Progress Notes * Tabitha Hall MD - 05/04/2024 11:28 AM EDT Images from the original note were not included. History of Present Illness Lilibeth Kong is a 84 year old female that presents for Follow Up (Discuss blood sugars ) Patient is here for the recheck. Chart reviewed with the patient including current meds, last labs and HM. No acute event since we saw her last time including no recent fall or injuries. Hemoglobin AIC Results: Lab Results Component Value Date/Time HEMOGLOBIN A1C - [facility] 10.7 (H) 03/05/2024 08:29 AM HEMOGLOBIN A1C - [facility] 7.1 (H) 06/12/2023 09:30 AM HEMOGLOBIN A1C - [facility] 7.8 (H) 10/09/2022 02:21 PM HEMOGLOBIN A1C - [facility] 7.2 (H) 07/27/2020 09:31 AM HEMOGLOBIN A1C POCT - [facility] 7.0 (H) 04/23/2023 11:05 AM HEMOGLOBIN A1C POCT - [facility] 6.7 (H) 01/14/2023 08:34 AM HEMOGLOBIN A1C POCT - [facility] 6.9 (H) 08/23/2022 01:20 PM Discussed changes in feet. Pt is agreeable for podiatry. No chestpain, sob, wheezing. Feels fatigue+ Physical Exam Vitals: 05/04/24 1112 Temp: 36.7 C (98 F) Pulse: 98 Resp: 16 BP: 118/60 BMI: 25.29 BP Readings from Last 3 Encounters: 05/04/24 118/60 03/17/24 124/58 12/15/23 124/62 Wt Readings from Last 3 Encounters: 05/04/24 45.8 kg (101 lb) 03/17/24 45.8 kg (101 lb) 12/15/23 45.9 kg (101 lb 3.2 oz) BMI Readings from Last 3 Encounters: 05/04/24 25.28 kg/m 03/17/24 25.28 kg/m 12/15/23 25.33 kg/m Ht Readings from Last 3 Encounters: 05/04/24 1.346 m (4' 5") 06/12/23 1.346 m (4' 5") 01/14/23 1.346 m (4' 5") HEENT: PERRLA, EOMI, anicteric sclera, b/l tympanic membrane is pearly white, no erythema, no pharyngeal erythema, no lymphadenopathy, neck supple CVS: RRR, no murmurs, rubs or gallops, s1 s 2normal. RESP: clear to auscultation, no wheezing or crackles ABD: soft, NT/ND EXT: no edema, cyanosis, peripheral pulses palpable bilaterally No large joint swelling, no redness, range of motion normal. Skin normal. Gait normal. Mood stable No focal weakness I have reviewed the following results: CMP, Hemoglobin A1C, and TSH Assessment and Plan Type 2 diabetes mellitus with hemoglobin A1c goal of less than 8.0% ([facility]) (Primary) On metformin and trulicity. Average glucose now is 145. Dermatophytosis of nail - PODIATRY REFERRAL OP SIADH (syndrome of inappropriate ADH production) ([facility]) Senile osteoporosis Malaise and fatigue Iron deficiency anemia, unspecified iron deficiency anemia type - CBC WITH WBC DIFFERENTIAL; Future; Expected date: 05/04/2024 - FERRITIN; Future; Expected date: 05/04/2024 - IRON SCREEN, INCLUDING TIBC; Future; Expected date: 05/04/2024 Acquired hypothyroidism - TSH WITH FREE T4 IF INDICATED; Future; Expected date: 05/04/2024 B12 deficiency - VITAMIN B12; Future; Expected date: 05/04/2024 Balance disorder - PHYSICAL THERAPY REFERRAL OP Follow Up: Return in about 6 months (around 11/04/2024) for Return with Physician, Labs Today. | For: Return with Physician, Labs Today Wrap-Up Time: I spent a total of 30-39 minutes (exact time 30 mins) on the date of service in preparation, delivery, and documentation of the care provided to Lilibeth Kong excluding any time spent in the performance of separately billed services. documented in this encounter Nursing Notes * Odalis Mckoy LPN - 05/04/2024 11:12 AM EDT The patient has been properly identified by confirmation of name and date of . Chief Complaint Patient presents with Follow Up Discuss blood sugars documented in this encounter Plan of Treatment Upcoming Encounters Date Type Department Care Team (Late st Contact Info) Description 06/28/2024 2:20 PM EDT Office Visit Neurology [facility] [address] [place] [address] Alvin Aragon MD [address] [place] [address] 06/29/2024 8:50 AM EDT [facility] [place] [address] [facility] [place] [address] Pharmacist1, [facility] 200 [facility] [place] [address] 06/29/2024 9:20 AM EDT Office Visit General Internal Medicine [facility] [place] [address] [facility] [place] [address] Tabitha Hall MD [address] [facility] [address] [place], [place] [address] 07/02/2024 11:20 AM EDT Office Visit Nephrology, [facility] [address] [facility] [place] [address] Hill Venegas MD 200 [facility] [place] [address] 08/18/2024 10:00 AM EST Imaging Radiology, [address] [place], [place] [address] 08/18/2024 10:40 AM EST Office Visit Rheumatology [address] [place], [place] [address] Agustin Erickson MD [facility] [address] [place], [place] [address] Scheduled Orders Name Type Priority Associated Diagnoses Orde r Schedule TSH WITH FREE T4 IF INDICATED Lab Routine Acquired hypothyroidism Expected: 05/04/2024 (Approximate), Expires: 05/04/2025 CBC WITH WBC DIFFERENTIAL Lab Routine Iron deficiency anemia, unspecified iron deficiency anemia type Expected: 05/04/2024 (Approximate), Expires: 05/04/2025 FERRITIN Lab Routine Iron deficiency anemia, unspecified iron deficiency anemia type Expected: 05/04/2024 (Approximate), Expires: 05/04/2025 IRON SCREEN, INCLUDING TIBC Lab Routine Iron deficiency anemia, unspecified iron deficiency anemia type Expected: 05/04/2024 (Approximate), Expires: 05/04/2025 VITAMIN B12 Lab Routine B12 deficiency Expected: 05/04/2024 (Approximate), Expires: 05/04/2025 Scheduled Referrals Name Type Priority Associated Diagnoses Orde r Schedule PODIATRY REFERRAL OP Referral Within 30 days (routine) Dermatophytosis of nail Ordered: 05/04/2024 PHYSICAL THERAPY REFERRAL OP Referral Within 10 days (routine) Balance disorder Ordered: 05/04/2024 Health Maintenance Due Date Last Done Comments COVID-19 Vaccine ( season) 2023 02/21/2023, 06/17/2022, [...] 03/05/2025 024, 01/14/2023, 04/15/2022, Additional history exists TSH 03/05/2025 03/05/2024, 09/0 04/2023, 01/14/2023, Additional history exists Diabetic Eye Exam 04/14/2025 04/14/2024, , 01/25/2021, Additional history exists DTaP,Tdap,and Td Vaccines (3 - Td or Tdap) 06/27/2033 06/27/2023, 06/03/2012 Zoster Vaccines Completed 07/01/2019, 03/06, 10/06/2009 Pneumococcal Vaccine: 65+ Years Completed 06/07/2021, 01/07/2018, 03/21/2015 VITAMIN D LEVEL ONCE IN A LIFETIME-USE SMARTSET# [id number] Completed 06/12/2023, 10/24/2021, 08/17/2020, Additional history exists [...] as of this encounter Visit Diagnoses Diagnosis Type 2 diabetes mellitus with hemoglobin A1c goal of less than 8.0% (HCC)- Primary Dermatophytosis of nail SIADH (syndrome of inappropriate ADH production) (HCC) Other disorders of neurohypophysis Senile osteoporosis Malaise and fatigue Other malaise and fatigue Iron deficiency anemia, unspecified iron deficiency anemia type Acquired hypothyroidism Unspecified hypothyroidism B12 deficiency Other B-complex deficiencies Balance disorder Other symptoms involving nervous and musculoskeletal systems documented in this encounter Advance Directives Documents on File Type Date Recorded Patient Copy Reader Expl anation ANTOINETTE 06/06/2021 ANTOINETTE REESE ORDERS FOR LIFE-SUSTAINING TREATMENT Care Teams Tree Girdler Relationship Specialty Start Date End Date Tabitha Hall MD 200 [place] [address] PCP - General Internal Medicine 07/27/20 documented as of this encounter
--- OUTSIDE RECORDS SUMMARY | 2024-06-30 23:32 | External Medical Summary ---
Author Name Unknown Address Unknown Organization [id number]:[facility]ORY [facility] - [address] [place] [address] Laboratory Report Ordering Provider Test Date Status LLOYD PERKINS 05/04/2024 12:11:03 Final Observation Date Value Abnormality Reference (Units ) Status Vitamin B12 05/04/2024 12:11:03 1840 Above high normal 232-1245 (pg/mL) Final Performing Location LABORATORY [facility] - [address] [place] [address]
--- OUTSIDE RECORDS SUMMARY | 2024-06-30 23:32 | External Medical Summary | Summary of Care ---
Author Name Unknown Organization [facility] Address [address] [place] [facility] [place] [address] Phone [phone] Care Team Providers Care Textile Technical Officer Name Role Phone Tabitha Hall MD Primary Care Provider + Reason for Visit * Reason Comments Outpatient Testing Encounter Details Date Type Department Care Team (Late st Contact Info) Description 05/04/2024 12:10 PM EDT Laboratory Laboratory [facility] [place] [facility] [place] [address] [place] [phone] [place], [facility] [address] [place] [address] Acquired hypothyroidism; Iron deficiency anemia, unspecified iron deficiency anemia type; B12 deficiency Allergies Active Allergy Reactions Criticality Noted Date [...] current use of insulin ([facility]) TAKE ONE TABLET BY MOUTH [...] Tablet 3 03/17/2024 Active FreeStyle French 3 [place] DeviceIndications:DM (diabetes mellitus), type 2, uncontrolled, with hyperosmolarity (HCC) Use as directed. 1 Each 03/29/2024 Active FreeStyle French 3 SensorIndications:DM (diabetes mellitus), type 2, uncontrolled, with hyperosmolarity (HCC) Use as directed. Change every 2 weeks. Diagnosis: Type 2 DM 2 Each 11 04/12/2024 Active Dulaglutide 0.75 MG/0.5ML Subcutaneous Solution Pen-injector (Trulicity)Indication s:DM (diabetes mellitus), type 2, uncontrolled, with hyperosmolarity (HCC),Controlled type 2 diabetes mellitus with hyperglycemia, without long-term current use of insulin (HCC) Inject 0.75 mg under the skin once a week. 2 mL 11 04/12/2024 Active DULoxetine HCl 30 MG Oral [...] 06/28/2024 2:20 PM EDT [facility] [address] [place] [address] Alvin Aragon MD [address] [place] [address] 06/29/2024 8:50 AM EDT [facility] [address] [place] [address] Pharmacist1, [facility] [address] [place] [address] 06/29/2024 9:20 AM EDT Office [facility] [address] [place] [address] Tabitha Hall MD [address] [place] [address] 07/02/2024 11:20 AM EDT Office Visit Nephrology, [facility] [address] [place] [address] Hill Venegas MD 200 [facility] [place] [address] 08/18/2024 10:00 AM EST Imaging Radiology, [address], [place] [address] 08/18/2024 10:40 AM EST Office Visit Rheumatology [address] [place] [address] Agustin Erickson MD [address] [place] [address] [place], [place] [address] 11/10/2024 11:00 AM EST Office Visit General Internal Medicine [facility] 200 [facility] [place], [place] [address] Tabitha Hall MD 200 [facility] [place], [place] [address] Pending Results Name Type Priority Associated Diagnoses Date /Time TSH WITH FREE T4 IF INDICATED Lab Routine Acquired hypothyroidism 05/04/2024 12:11 PM EDT FERRITIN Lab Routine Iron deficiency anemia, unspecified iron deficiency anemia type 05/04/2024 12:11 PM EDT IRON SCREEN, INCLUDING TIBC Lab Routine Iron deficiency anemia, unspecified iron deficiency anemia type 05/04/2024 12:11 PM EDT VITAMIN B12 Lab Routine B12 deficiency 05/04/2024 12:11 PM EDT Health Maintenance Due Date Last [...] 04/15/2022, Additional history exists TSH 03/05/2025 03/05/2024, 090 04/2023, 01/14/2023, Additional history exists Diabetic Eye Exam 04/14/2025 04/14/2024, , 01/25/2021, Additional history exists DTaP,Tdap,and Td Vaccines (3 - Td or Tdap) 06/27/2033 06/27/2023, 06/03/2012 Zoster Vaccines Completed 07/01/2019, 03/06, 10/06/2009 Pneumococcal Vaccine: 65+ Years Completed 06/07/2021, 01/07/2018, 03/21/2015 VITAMIN D LEVEL ONCE IN A LIFETIME-USE SMARTSET# [id number] Completed 06/12/2023, 10/24/2021, 08/17/2020, Additional history exists [...] Not on filedocumented as of this encounter Procedures Procedure Name Priority Date/Time Associated Diagnosis Comments DIFFERENTIAL, AUTOMATED Routine 05/04/2024 12:11 PM EDT Iron deficiency anemia, unspecified iron deficiency anemia type CBC Routine 05/04/2024 12:11 PM EDT Iron deficiency anemia, unspecified iron deficiency anemia type CBC Routine 05/04/2024 12:11 PM EDT Iron deficiency anemia, unspecified iron deficiency anemia type documented in this encounter Results * (ABNORMAL) DIFFERENTIAL, AUTOMATED (05/04/2024 12:11 PM EDT) Pathologist [facility] WBC 12.08(H) 4.00 - 10.80 K/uL 05/04/2024 12:17 PM EDT [facility] 56-02 Neutrophils % 65.1 40.0 - 75.0 % 05/04/2024 12:17 PM EDT [facility] 56- Lymphocytes % 23.3 18.0 - 42.0 % 05/04/2024 12:17 PM EDT [facility] 56- Monocytes % 8.1 1.0 - 11.0 % 05/04/2024 12:17 PM EDT [facility] 56 Eosinophils % 3.1 0.0 - 6.0 % 05/04/2024 12:17 PM EDT [facility] 56 Basophils % 0.4 0.0 - 2.0 % 05/04/2024 12:17 PM EDT [facility] 56- Absolute Neutrophils 7.87(H) 1.80 - 7.70 K/uL 05/04/2024 12:17 PM EDT [facility] 56-02 Absolute Lymphocytes 2.81 1.00 - 4.80 K/ul 05/04/2024 12:17 PM EDT [facility] 56- Absolute Monocytes 0.98 0.00 - 1.10 K/uL 05/04/2024 12:17 PM EDT [facility] 56-02 Absolute Eosinophils 0.37 0.00 - 0.70 K/uL 05/04/2024 12:17 PM EDT [facility] 56-02 Absolute Basophils 0.05 0.00 - 0.20 K/uL 05/04/2024 12:17 PM EDT [facility] 56-02 Blood Venous blood specimen / Unknown Venipuncture / Unknown 05/04/2024 12:11 PM EDT 05/04/2024 12:11 PM EDT Tabitha Hall MD LAB BLOOD ORDERA BLES [facility] [address]- [address] [place], [place] [phone] * (ABNORMAL) CBC (05/04/2024 12:11 PM EDT) WBC 12.08(H) 4.00 - 10.80 K/uL 05/04/2024 12:17 PM [address]T [address] RBC 4.21 3.85 - 5.15 M/uL 05/04/2024 12:17 PM EDT [address] HGB 11.8(L) 12.0 - 15.3 g/dL 05/04/2024 12:17 PM EDT [address] HCT 35.6(L) 36.0 - 45.2 % 05/04/2024 12:17 PM EDT [address] MCV 84.6 81.5 - 97.5 fL 05/04/2024 12:17 PM EDT [address] MCH 28.0 27.0 - 34.0 pg 05/04/2024 12:17 PM EDT [address] MCHC 33.1 32.0 - 36.0 g/dL 05/04/2024 12:17 PM EDT [address] RDW 14.2 11.5 - 15.5 % 05/04/2024 12:17 PM EDT [address] PLT 336 140 - 400 K/uL 05/04/2024 12:17 PM EDT [address] MPV 9.3 6.6 - 11.1 fL 05/04/2024 12:17 PM EDT [address] Blood Venous blood specimen / Unknown Venipuncture / Unknown 05/04/2024 12:11 PM EDT 05/04/2024 12:11 PM EDT Tabitha Hall MD LAB BLOOD ORDERA BLES [address] [place] [address] documented in this encounter Visit Diagnoses Diagnosis Acquired hypothyroidism Unspecified hypothyroidism Iron deficiency anemia, unspecified iron deficiency anemia type B12 deficiency Other B-complex deficiencies documented in this encounter Advance Directives Documents on File Type Date Recorded Patient Block Tester Expl anation POLST 06/06/2021 POLST LIANNE REESE ORDERS FOR LIFE-SUSTAINING TREATMENT Care Teams Textile Technical Officer Relationship Specialty Start Date End Date Tabitha Hall MD 200 [facility], [place] [phone] PCP - General Internal Medicine 07/27/20 documented as of this encounter
--- OUTSIDE RECORDS SUMMARY | 2024-06-30 23:32 | External Medical Summary | Summary of Care ---
Author Name Unknown Organization [facility] Address [address] [place] [address] Phone [phone] Care Team Providers Care Electromechanisms Design Drafter Name Role Phone Tabitha Hall MD Primary Care Provider + Reason for Visit * Reason Onset Date Comments Advice 05/17/2024 Encounter Details Date Type Department Care Team (Late st Contact Info) Description 05/17/2024 Telephone General Internal Medicine [facility] [address] [facility] [address] Tabitha Hall MD 200 [place] [address] Advice Allergies Active Allergy Reactions Criticality Noted [...] goal of less than 8.0% ([facility]) Use to inject B-12 injection once a [...] long-term current use of insulin ([facility]) TAKE ONE TABLET BY MOUTH TWICE A [...] Tablet 3 03/17/2024 Active FreeStyle French 3 [place] DeviceIndications:DM (diabetes mellitus), type 2, uncontrolled, with [...] encounter Miscellaneous Notes * Telephone Encounter - Yunior Phillips RPh - 05/20/2024 7:45 AM EDT Patient Phone Numbers MTM has not seen any fax but will fax the last MTM notes showing low BG and also Dr. Hall's last visit (05/04/24). Yunior Sanchez RPh, [facility] Clinical Pharmacist [facility] 05/20/2024, 7:46 AM * Telephone Encounter - Amita Reynoso LPN - 05/19/2024 3:38 PM EDT Has MTM seen any papers regarding this? Has pt used this before do you know? * Telephone Encounter - Asia Armas OSA - 05/19/2024 9:28 AM EDT Eli calling from [facility] asking if information/pt's last office note can [...] need. They will need an addendumto this. [phone] FAX documented in this encounter Plan of Treatment Upcoming Encounters Date Type Department Care Team (Late st Contact Info) Description 06/28/2024 2:20 PM EDT Office Visit Neurology [facility] [place] [address] [place], [place] [address] Alvin Aragon MD [address] [place], [place] [address] 06/29/2024 8:50 AM EDT Office Visit Pharmacy, [facility] [place] [address] [place] [address] Pharmacist1, [facility] [address] [place], [place] [address] 06/29/2024 9:20 AM EDT Office Visit General Internal Medicine [facility] [place] [address] [place], [place] [address] Tabitha Hall MD [address] [place] [address] 07/02/2024 11:20 AM EDT Office Visit Nephrology, [facility] [address] [place], [place] [address] Hill Venegas MD [address] [place], [place] [address] 07/07/2024 11:00 AM EDT Office Visit Podiatry [facility] [address] [place] [address] Jossie Ashraf, DPM [address] [facility] [place] [address] 08/18/2024 10:00 AM EST Imaging Radiology, [address] [place] [address] 08/18/2024 10:40 AM EST Office Visit Rheumatology [address] [place] [address] Agustin Erickson MD [address] [place] [address] [place] [address] 11/10/2024 11:00 AM EST Office Visit General Internal Medicine [facility] [address] [facility] [place] [address] Tabitha Hall MD [address] [facility] [place] [address] Health Maintenance Due Date Last Done Comments [...] Scan 08/07/2024 08/07/2022, 07/31/2020 HbA1c 09/04/2024 03/05/2024, 04/2023, 04/23/2023, Additional history exists Albumin/Creatinine Ratio [...] D LEVEL ONCE IN A LIFETIME-USE SMARTSET# [id number] Completed 06/12/2023, 10/24/2021, 08/17/2020, Additional history exists [...] Documents on File Type Date Recorded Patient Product Controller Expl anation POLST 06/06/2021 ANTOINETTE REESE ORDERS FOR LIFE-SUSTAINING TREATMENT Care Teams Electromechanisms Design Drafter Relationship Specialty Start Date End Date Tabitha Hall MD [address] [place] [address] PCP - General Internal Medicine 07/27/20 documented as of this encounter
--- OUTSIDE RECORDS SUMMARY | 2024-06-30 23:32 | External Medical Summary | Summary of Care ---
Author Name Unknown Organization [facility] Address [address] [place] [address] Phone [phone] Care Team Providers Care Hockey Scout Name Role Phone Tabitha Hall MD Primary Care Provider + Reason for Visit * Reason Comments eRx-Medication Refill Encounter Details Date Type Department Care Team (Late st Contact Info) Description 04/22/2024 Refill General Internal Medicine [facility] [address] [facility] [place] [address] Tabitha Hall MD [address] [place] [address] Allergies Active Allergy Reactions Criticality Noted Date Comments Ibuprofen 06/11/2016 Alendronate Sodium 08/13/2016 Celecoxib Nausea/vomiting 12/22/2013 Cheese Flavor 08/27/2013 Monosodium Glutamate 08/13/2016 Penicillin G 06/11/2016 Salicylates Unknown 05/17/2021 Sulfa Antibiotics 06/11/2016 documented as of this encounter (statuses as of 04/23/2024) Medications Medication Sig Dispensed Refills Start Date [...] goal of less than 8.0% ([facility]) Use to inject B-12 injection once a [...] long-term current use of insulin ([facility]) TAKE ONE TABLET BY MOUTH TWICE A [...] Tablet 3 4 Active FreeStyle French 3 [place] DeviceIndications:D M (diabetes mellitus), type 2, uncontrolled, with hyperosmolarity (HCC) Use as directed. 1 Each 4 Active glipiZIDE ER 2.5 MG Oral Tablet Extended Release 24 Hour (Glucotrol XL)Indications:Cont rolled type 2 diabetes mellitus with hyperglycemia, without long-term current use of insulin (HCC) Take 1 Tablet by mouth in the morning. With 5mg to equal 7.5mg dose). 90 Tablet 3 4 Active FreeStyle French 3 SensorIndications:D M (diabetes mellitus), type 2, uncontrolled, with hyperosmolarity (HCC) Use as directed. Change every 2 weeks. Diagnosis: Type 2 DM 2 Each 4 Active Dulaglutide 0.75 MG/0.5ML Subcutaneous Solution Pen-injector (Trulicity)Indicati ons:DM (diabetes mellitus), type 2, uncontrolled, with hyperosmolarity (HCC),Controlled type 2 diabetes mellitus with hyperglycemia, without long-term current use of insulin (HCC) Inject 0.75 mg under the skin once a week. 2 mL 4 Active DULoxetine HCl 30 MG Oral Capsule Delayed Release Particles (Cymbalta) TAKE ONE CAPSULE BY MOUTH EVERY MORNING ALONG WITH 60MG (TOTAL DOSE 90MG) DO NOT CUT, CRUSH, OR CHEW 30 Capsule 5 4 Active DULoxetine HCl 30 MG Oral Capsule Delayed Release Particles (Cymbalta) Take 1 Capsule by mouth in the morning. Take along with Duloxetine 60 mg daily, (total dose 90 mg )Do not cut, crush or chew. 30 Capsule 5 3 07/19/20 24 Discontinued documented as of this encounter (statuses as of 04/23/2024) Active Problems Problem Noted Date Diagnosed Date Recurrent major depressive disorder, in partial remission 10/24/2021 Dislocation closed, finger, subsequent encounter 09/06/2020 Controlled type 2 diabetes m michelitus with hyperglycemia, without long-term current use of insulin 08/17/2020 SIADH (syndrome of inappropriate ADH production) 08/17/2020 DDD (degenerative disc disease), cervical 2019 Senile osteoporosis Diabetes type 2, controlled Generalized OA Hypothyroidism Glaucoma DDD (degenerative disc disease), lumbosacral documented as of this encounter (statuses as of 04/23/2024) Immunizations Name Administration Dates Next Due COVID-19 [...] encounter Miscellaneous Notes * Telephone Encounter - Jae Starks [facility] - 04/23/2024 9:05 AM EDTSigned Prescriptions: Disp Refills DULoxetine HCl 30 MG Oral Capsule Delayed *30 Cap*5 Sig: TAKE ONE CAPSULE BY MOUTH EVERY MORNING ALONG WITH 60MG (TOTAL DOSE 90MG) DO NOT CUT, CRUSH, OR CHEWAuthorizing Provider: TABITHA HALL User: JAE STARKS documented in this encounter Plan of Treatment Upcoming Encounters Date Type Department Care Team (Late st Contact Info) Description 05/04/2024 11:00 AM EDT Office Visit General Internal Medicine [facility] [address] [place], [place] [address] Tabitha Hall MD [address] [facility] [place] [address] 06/28/2024 2:20 PM EDT Office Visit Neurology [facility] [address] [place], [place] [address] Alvin Aragon MD [address] [place], [place] [address] 06/29/2024 8:50 AM EDT Office Visit Pharmacy, [facility] [address] [place], [place] [address] Pharmacist1, [facility] [address] [facility] [place] [address] 06/29/2024 9:20 AM EDT Office Visit General Internal Medicine [facility] [address] [place] [address] Tabitha Hall MD [address] [place], [place] [address] 08/18/2024 10:00 AM EST Imaging Radiology, [place] [address] [place] [address] 08/18/2024 10:40 AM EST Office Visit Rheumatology [facility] [place] [address] Agustin Erickson MD [facility] [place] [address] Health Maintenance Due Date Last Done Comments [...] D LEVEL ONCE IN A LIFETIME-USE SMARTSET# [id number] Completed 06/12/2023, 10/24/2021, 08/17/2020, Additional history exists [...] on File Type Date Recorded Patient Senior Estimator Nathaniel corea POLST 06/06/2021 ANTOINETTE REESE ORDERS FOR LIFE-SUSTAINING TREATMENT Care Teams Hockey Scout Relationship Specialty Start Date End Date Tabitha Hall MD [address] [place] [address] [place] [address] PCP - General Internal Medicine 07/27/20 documented as of this encounter
--- OUTSIDE RECORDS SUMMARY | 2024-06-30 23:32 | External Medical Summary ---
Author Name Unknown Address Unknown Organization [id number]:[facility]ORY [facility] - [address] [place] [address] Laboratory Report Ordering Provider Test Date Status ROSALINA ABDUL 06/28/2024 13:56:11 Final Deficient: <20 ng/mL
Ins ufficient: 20-29 ng/mL
Recommended/Optimum:30-50 ng/mL

Vitamin D intoxication is rare. If suspicious of Vitamin D toxicity, evaluation of serum Calcium and PTH is recommended. Observation Date Value Abnormality Reference (Units ) Status 25-OH Vitamin D total 06/28/2024 13:56:11 62 >19 (ng/mL) Final Performing Location [facility] - [address] [place] [address]
--- OUTSIDE RECORDS SUMMARY | 2024-06-30 23:32 | External Medical Summary ---
Author Name Unknown Address Unknown Organization K09:[facility] [address] [place] [address] Laboratory Report Ordering Provider Test Date Status LLOYD PERKINS 05/04/2024 12:11:03 Final Observation Date Value Abnormality Reference (Units ) Status WBC, Total 05/04/2024 12:11:03 12.08 Above high normal 4 .00-10.80 (K/uL) Final RBC 05/04/2024 12:11:03 4.21 3.85-5.15 (M/uL) Final Hemoglobin 05/04/2024 12:11:03 11.8 Below low normal 12 .0-15.3 (g/dL) Final HCT 05/04/2024 12:11:03 35.6 Below low normal 36. 0-45.2 (%) Final MCV 05/04/2024 12:11:03 84.6 81.5-97.5 (fL) Final MCH 05/04/2024 12:11:03 28.0 27.0-34.0 (pg) Final MCHC 05/04/2024 12:11:03 33.1 32.0-36.0 (g/dL) Final RDW 05/04/2024 12:11:03 14.2 11.5-15.5 (%) Final Platelets 05/04/2024 12:11:03 336 140-400 (K /uL) Final MPV 05/04/2024 12:11:03 9.3 6.6-11.1 ( fL) Final Performing Location [facility] [place] [address]
--- OUTSIDE RECORDS SUMMARY | 2024-06-30 23:32 | External Medical Summary | Summary of Care ---
Author Name Unknown Organization [facility] Address [address] [place] [address] Phone [phone] Care Team Providers Care Twisting Machine Operator Name Role Phone Tabitha Hall MD Primary Care Provider + Reason for Visit * Reason Onset Date Comments FYI 04/20/2024 Encounter Details Date Type Department Care Team (Late st Contact Info) Description 04/20/2024 Telephone General Internal Medicine [facility] 200 [facility] [place] [address] Tabitha Hall MD 200 [place] [address] FYI Allergies Active Allergy Reactions Criticality Noted Date Comments Ibuprofen 06/11/2016 Alendronate Sodium 08/13/2016 Celecoxib Nausea/vomiting 12/22/2013 Cheese Flavor 08/27/2013 Monosodium Glutamate 08/13/2016 Penicillin G 06/11/2016 Salicylates Unknown 05/17/2021 Sulfa Antibiotics 06/11/2016 documented as of this encounter (statuses as of 04/20/2024) Medications Medication Sig Dispensed Refills Start Date [...] 25G X 5/8" 1 ML (Insulin Syringe-Needle U-100)Indications:Co ntrolled type 2 diabetes mellitus with hyperglycemia, without long-term current use of insulin ([facility]),Type 2 diabetes mellitus with hemoglobin A1c goal of less than 8.0% ([facility]) Use to inject B-12 injection once a [...] 60 MG Oral Capsule Delayed Release Particles (Cymbalta)Indication s:Generalized OA,Recurrent major depressive disorder, in partial remission ([facility]) TAKE ONE CAPSULE BY MOUTH EVERY MORNING along with duloxetine 30 mg capsule ( total dose 90mg) ,DO NOT CUT, CRUSH, OR CHEW. 90 Capsule 3 09/09/2023 Active Additional Information Patient taking differently: TAKE ONE CAPSULE BY MOUTH EVERY MORNING along with duloxetine 30 mg capsule ( total dose 90mg) ,DO NOT CUT, CRUSH, OR CHEW. Takes in evening, Reported on 10/20/2023 DULoxetine HCl 30 MG Oral Capsule Delayed Release Particles (Cymbalta) Take 1 Capsule by mouth in the morning. Take along with Duloxetine 60 mg daily, (total dose 90 mg )Do not cut, crush or chew. 30 Capsule 5 09/09/2023 Active Additional Information Patient taking differently:30 mg Oral Daily(AM),Take along with Duloxetine 60 mg daily, (total dose 90 mg )Do not cut, crush or chew Takes in evening, Reported on 10/20/2023 metFORMIN HCl ER 500 MG Oral Tablet Extended Release 24 Hour (Glucophage XR)Indications:Contr olled type 2 diabetes mellitus with hyperglycemia, without long-term current use of insulin (HCC) TAKE ONE TABLET BY MOUTH TWICE A DAY WITH MORNING AND EVENING MEALS 180 Tablet 3 09/25/2023 Active Cyanocobalamin 1000 MCG/ML Injection Solution (Cyanocobalamin)Erica cations:B12 deficiency INJECT 1000MCG DIRECTED EVERY 30 DAYS 1 mL 11 12/25/2023 Active BD SafetyGlide Needle 25G X 1" (Needle (Disp)) Use for vitamin b12 injections monthly. 100 Each 5 01/12/2024 Active Rosuvastatin Calcium 5 MG Oral Tablet (Crestor)Indications :Hyperlipidemia with target LDL less than 100 Take 1 Tablet by mouth daily. 90 Tablet 1 02/11/2024 Active Levothyroxine Sodium 25 MCG Oral Tablet (Levoxyl)Indications :Acquired hypothyroidism 2 pills once daily Friday to and take one oull Friday to Friday.(at least 30 min prior to breakfast or other meds) 90 Tablet 3 03/17/2024 Active FreeStyle French 3 [place] DeviceIndications:DM (diabetes mellitus), type 2, uncontrolled, with hyperosmolarity (HCC) Use as directed. 1 Each 03/29/2024 Active glipiZIDE ER 2.5 MG Oral Tablet Extended Release 24 Hour (Glucotrol XL)Indications:Contr olled type 2 diabetes mellitus with hyperglycemia, without long-term current use of insulin (HCC) Take 1 Tablet by mouth in the morning. With 5mg to equal 7.5mg dose). 90 Tablet 3 04/06/2024 Active FreeStyle French 3 SensorIndications:DM (diabetes mellitus), type 2, uncontrolled, with hyperosmolarity (HCC) Use as directed. Change every 2 weeks. Diagnosis: Type 2 DM 2 Each 04/12/2024 Active Dulaglutide 0.75 MG/0.5ML Subcutaneous Solution Pen-injector (Trulicity)Indicatio ns:DM (diabetes mellitus), type 2, uncontrolled, with hyperosmolarity (HCC),Controlled type 2 diabetes mellitus with hyperglycemia, without long-term current use of insulin (HCC) Inject 0.75 mg under the skin once a week. 2 mL 11 04/12/2024 Active glipiZIDE ER 5 MG Oral Tablet Extended Release 24 Hour (Glucotrol XL)Indications:Contr olled type 2 diabetes mellitus with hyperglycemia, without long-term current use of insulin (HCC) Take 1 Tablet by mouth in the morning. 30 Tablet 1 03/17/2024 04/20/20 24 Discontinu ed(Medicat ion/Dose Changed) documented as of this encounter (statuses as of 04/20/2024) Active Problems Problem Noted Date Diagnosed Date [...] as of this encounter (statuses as of 04/20/2024) Immunizations Name Administration Dates Next Due COVID-19 [...] encounter Miscellaneous Notes * Telephone Encounter - Tabitha Hall MD - 04/20/2024 12:59 PM EDT Signed the orders. documented in this encounter Plan of Treatment Upcoming Encounters Date Type Department Care Team (Late st Contact Info) Description 05/04/2024 11:00 AM EDT Office Visit General Internal Medicine [facility] [place] [address] [place] [address] Tabitha Hall MD [address] [place] [address] 06/28/2024 2:20 PM EDT Office Visit Neurology [facility] [place] [address] [place] [address] Alvin Aragon MD [address] [place] [address] 06/29/2024 8:50 AM EDT Office Visit Pharmacy, [facility] [address] [place] [address] Pharmacist1, [facility] [address] [place] [address] 06/29/2024 9:20 AM EDT Office Visit General Internal Medicine [facility] [address] [place] [address] [address] Tabitha Hall MD [address] [place] [address] 08/18/2024 10:00 AM EST Imaging Radiology, [place] [address] [place] [address] 08/18/2024 10:40 AM EST Office Visit Rheumatology [facility] [address] [place] [address] Agustin Erickson MD [address] [place], [place] [address] Health Maintenance Due Date Last Done Comments [...] D LEVEL ONCE IN A LIFETIME-USE SMARTSET# [id number] Completed 06/12/2023, 10/24/2021, 08/17/2020, Additional history exists [...] Documents on File Type Date Recorded Patient Topographical Surveyor Expl anation POLST 06/06/2021 POLST PENNSYLVA HUGH ORDERS FOR LIFE-SUSTAINING TREATMENT Care Teams Twisting Machine Operator Relationship Specialty Start Date End Date Tabitha Hall MD 200 [place] [address] PCP - General Internal Medicine 07/27/20 documented as of this encounter
--- OUTSIDE RECORDS SUMMARY | 2024-06-30 23:32 | External Medical Summary | Summary of Care ---
Author Name Unknown Organization [facility] Address [address] [place] [address] Phone [phone] Care Team Providers Care Signals Collection Technician Name Role Phone Tabitha Hall MD Primary Care Provider + Reason for Referral * Evaluate & Treat - Unlimited Visits (Within 10 days (routine)) - Authorized Specialty Diagnoses / Procedures Referred By Michael awad Referred To Contact Physical Therapy / Physical Medicine And Rehab Diagnoses Balance disorder Tabitha Hall MD [address] [place] [address] Referral ID Status Reason Start Date Expiration Date Visits Requested Visits Authorized [id number] Authorized Specialty Services Required 05/04/2024 999 999 [...] nail Tabitha Hall MD [address] [place] [address] Referral ID Status Reason Start Date Expiration Date Visits Requested Visits Authorized [id number] Authorized Specialty Services Required 05/04/2024 999 999 [...] Office Visit General Internal Medicine [place] 200 [facility] [place] [address] Tabitha Hall MD 200 [facility] [place] [address] Type 2 diabetes mellitus with hemoglobin A1c goal of less than 8.0% ([facility])*; Dermatophytosis of nail; SIADH (syndrome of inappropriate ADH production) ([facility]); Senile osteoporosis; Malaise and fatigue; Iron deficiency [...] hyperglycemia, without long-term current use of insulin ([facility]),Type 2 diabetes mellitus with hemoglobin A1c goal of less than 8.0% ([facility]) Use to inject B-12 injection once [...] hyperglycemia, without long-term current use of insulin ([facility]) TAKE ONE TABLET BY MOUTH TWICE [...] Tablet 3 4 Active FreeStyle French 3 [place] DeviceIndications:D M (diabetes mellitus), type 2, uncontrolled, with hyperosmolarity (HCC) Use as directed. 1 Each 4 Active FreeStyle French 3 SensorIndications:D M (diabetes mellitus), type 2, uncontrolled, with hyperosmolarity (HCC) Use as directed. Change every 2 weeks. Diagnosis: Type 2 DM 2 Each 4 Active Dulaglutide 0.75 MG/0.5ML Subcutaneous Solution Pen-injector ([facility])Indicati ons:DM (diabetes mellitus), type 2, uncontrolled, with hyperosmolarity (HCC),Controlled type 2 diabetes mellitus with hyperglycemia, without long-term current use of insulin ([facility]) Inject 0.75 mg under the skin once [...] hemoglobin A1c goal of less than 8.0% ([facility]) (Primary) On metformin and trulicity. Average glucose now is 145. Dermatophytosis of nail - PODIATRY REFERRAL OP SIADH (syndrome of inappropriate ADH production) ([facility]) Senile osteoporosis Malaise and fatigue Iron deficiency [...] Description 05/04/2024 12:10 PM EDT Laboratory [facility] [address] [place] [address] [address] [place] [place] [address] Acquired hypothyroidism; Iron deficiency anemia, unspecified iron deficiency anemia type; B12 deficiency 06/28/2024 2:20 PM EDT [facility] [address] [place] [address] Alvin Aragon MD [address] [place] [address] 06/29/2024 8:50 AM EDT Office Visit Pharmacy, [facility] [address] [place] [address] Pharmacist1, [facility] [address] [place] [address] 06/29/2024 9:20 AM EDT Office Visit [facility] Internal Medicine [facility] [address] [place] [address] Tabitha Hall MD [address] [place] [address] 07/02/2024 11:20 AM EDT Office Visit Nephrology, [facility] [address] [place] [place] [address] Hill Venegas MD 200 [facility] [place] [address] 08/18/2024 10:00 AM EST Imaging Radiology, [address] [place] [address] 08/18/2024 10:40 AM EST Office Visit Rheumatology [address] [place], [place] [address] Agustin Erickson MD [facility] [place] [address] 11/10/2024 11:00 AM EST Office Visit [facility] [address] [place] [address] Tabitha Hall MD [address] [place] [address] Scheduled Orders Name Type Priority Associated Diagnoses [...] D LEVEL ONCE IN A LIFETIME-USE SMARTSET# [id number] Completed 06/12/2023, 10/24/2021, 08/17/2020, Additional history exists [...] nail SIADH (syndrome of inappropriate ADH production) ([facility]) Other disorders of neurohypophysis Senile osteoporosis Malaise and fatigue Other malaise and fatigue Iron deficiency anemia, unspecified iron deficiency anemia type Acquired hypothyroidism Unspecified hypothyroidism B12 deficiency Other B-complex deficiencies Balance disorder Other symptoms involving nervous and musculoskeletal systems Acquired hypothyroidism Unspecified hypothyroidism Iron deficiency anemia, unspecified iron deficiency anemia type B12 deficiency Other B-complex deficiencies documented in this encounter Advance Directives Documents on File Type Date 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
--- OUTSIDE RECORDS SUMMARY | 2024-06-30 23:33 | External Medical Summary | Summary of Care ---
Author Name Unknown Organization [facility] Address [address] [place] [address] Phone [phone] Care Team Providers Care Community Development Aide Name Role Phone Tabitha Hall MD Primary Care Provider + Reason for Referral * Evaluate & Treat - Unlimited Visits (Within 10 days (routine)) - Pending Review Specialty Diagnoses / Procedures Referred By Michael awad Referred To Contact Pharmacist / Pharmacy Diagnoses Controlled type 2 diabetes mellitus with hyperglycemia, without long-term current use of insulin ([facility]) Tabitha Hall MD [address] [place] [address] Referral ID Status Reason Start Date Expiration Date Visits Requested Visits Authorized [id number] Pending Review Specialty Services Required 03/04/2024 99 99 Question Answer Referral Priority Within 10 days (routine) Where should this appointment be scheduled? [facility] Referring Provider Role: Primary Care Reason for Referral: DM Target A1c: < 7 Comments Pharmacist Medication Therapy Management: Minimum frequency patient should be seen in person for medication management: as appropriate per clinical condition and patient status By my signature, I understand that my patient Lilibeth Kong will have her medication therapy managed by the [facility] Medication Therapy Disease Management Clinic ([facility]) per established policies, procedures, and protocols. I also certify that this referral may serve as an initiation of service for the management of drug therapy in the above noted patient. [facility] providers will be responsible for scheduling patient visits, obtaining appropriate laboratory studies, and adjusting medication management therapy per patient's need, in addition to those roles spelled out in the clinic policy, procedures, and drug management protocols. I understand that the service provided by the [facility] is voluntary and have informed patient that they can refuse the service at their discretion. I am aware that the [facility] Clinic will provide me with a copy of the patient encounter via my [employer] In[employer] Specific. I authorize the [facility] to carry out these activities on my behalf. I consider this program to be a necessary part of the patient's medical care. Tabitha Hall MD Reason for Visit * Reason Onset Date Comments Advice 03/04/2024 Encounter Details Date Type Department Care Team (Late st Contact Info) Description 03/04/2024 Telephone General Internal Medicine [facility] [place] [address] [place] [address] Tabitha Hall MD [address] [place] [address] Advice Allergies Active Allergy Reactions Criticality Noted Date Comments Ibuprofen 06/11/2016 Alendronate Sodium 08/13/2016 Celecoxib Nausea/vomiting 12/22/2013 Cheese Flavor 08/27/2013 Monosodium Glutamate 08/13/2016 Penicillin G 06/11/2016 Salicylates Unknown 05/17/2021 Sulfa Antibiotics 06/11/2016 documented as of this encounter (statuses as of 03/11/2024) Medications Medication Sig Dispensed Refills Start Date [...] morning. Takes at night Friday . Active OneTouch Verio Reflect w/Device KitIndications:Contr olled type 2 diabetes mellitus with hyperglycemia, without long-term current use of insulin ([facility]) Check Blood sugars once daily. 1 Kit 07/12/2022 Active Additional Information Patient not taking.Reported on 10/20/2023 OneTouch Verio In Vitro Strip (Glucose Blood)Indications:Co ntrolled type 2 diabetes mellitus with hyperglycemia, without long-term current use of insulin ([facility]) Check Blood sugars once daily. 100 Strip 3 07/12/2022 Active Additional Information Patient not taking.Reported on 10/20/2023 OneTouch Delica Lancets 33GIndications:Contr olled type 2 diabetes mellitus with hyperglycemia, without long-term current use of insulin ([facility]) Check Blood sugars once daily. 100 Each 3 07/12/2022 Active Additional Information Patient not taking.Reported on 10/20/2023 OneTouch Delica Lancing DevIndications:Contr olled type 2 diabetes mellitus with hyperglycemia, without long-term current use of insulin ([facility]) Check Blood sugars once daily. 1 Each 07/12/2022 Active Additional Information Patient not taking.Reported on 10/20/2023 BD Insulin Syringe 25G X 5/8" 1 ML (Insulin Syringe-Needle U-100)Indications:Co ntrolled type 2 diabetes mellitus with hyperglycemia, without long-term current use of insulin ([facility]),Type 2 diabetes mellitus with hemoglobin A1c goal of less than 8.0% ([facility]) Use to inject B-12 injection once [...] injections monthly. 100 Each 5 01/12/2024 Active Levothyroxine Sodium 25 MCG Oral Tablet (Levoxyl)Indications :Acquired hypothyroidism TAKE ONE TABLET BY MOUTH EVERY DAY FIRST THING IN THE MORNING 90 Tablet 1 02/11/2024 Active Rosuvastatin Calcium 5 MG Oral Tablet (Crestor)Indications :Hyperlipidemia with target LDL less than 100 Take 1 Tablet by mouth daily. 90 Tablet 1 02/11/2024 Active FreeStyle French 3 Minerva DeviceIndications:Co ntrolled type 2 diabetes mellitus with hyperglycemia, without long-term current use of insulin (HCC) Use as directed. 1 Each 02/25/2024 Active FreeStyle French 3 SensorIndications:Co ntrolled type 2 diabetes mellitus with hyperglycemia, without long-term current use of insulin (HCC) Use as directed. 1 Each 02/25/2024 Active documented as of this encounter (statuses as of 03/11/2024) Active Problems Problem Noted Date Diagnosed Date Recurrent major depressive disorder, in partial remission 10/24/2021 Dislocation closed, finger, subsequent encounter 09/06/2020 Controlled type 2 diabetes m annie with hyperglycemia, without long-term current use of insulin 08/17/2020 SIADH (syndrome of inappropriate ADH production) 08/17/2020 DDD (degenerative disc disease), cervical 2019 Senile osteoporosis Diabetes type 2, controlled Generalized OA Hypothyroidism Glaucoma DDD (degenerative disc disease), lumbosacral documented as of this encounter (statuses as of 03/11/2024) Immunizations Name Administration Dates Next Due COVID-19 [...] encounter Miscellaneous Notes * Telephone Encounter - Brandon Hutchinson OSA - 03/11/2024 3:29 PM EDT DONE * Telephone Encounter - Tabitha Hall MD - 03/11/2024 2:49 PM EDT Please overbook this patient at 11am on 03/17/24 after she sees [facility] pharmacy at 10:30am. Her sugars are very high and I was supposed to see her today but I had to cancel all my patients today. Also inform her caregiver Surekha about new change in her appointment with me. Thanks. * Telephone Encounter - Yunior Phillips RP - 03/04/2024 4:12 PM EDT Patient Phone Numbers Awaiting lab results before making medication changes. Patient is on Metformin ER 500mg twice dailyonly. Results will be available 03/08. Yunior Sanchez RPh, [facility] Clinical Pharmacist Medication Therapy Management Clinic 03/04/2024, 4:14 PM * Telephone Encounter - Tabitha Hall MD - 03/04/2024 11:49 AM EDT Noted. I am also in touch with pt's son Mata regards to her ER visit. For her high blood glucose, I did send French continuous glucose monitoring and they are checking it. Keep scheduled visit with me. Refer to [facility] pharmacy for further management. Please schedule. Will discuss further about adding another agent when see her in few days. We will discuss about start low dose of Jardiance 10 mg once a day as her renal panel is normal. Thanks * Telephone Encounter - Laura Santizo LPN - 03/04/2024 11:10 AM EDT Pt's caregiver Surekha calling with concern of pt's BS has been high for the last 2 weeks. A week ago while in [facility] family took her to the ER due to BS being 550. No medication changes. Since then BS has continued to run high. Today BS is 330 after a protein shake nothing else to eat today. She is having increased fatigue and increased confusion. She denies any other sx including any UTI sx. Surekha gave her 2 metformin 500mg today. She is inquiring if there are recommendation to control BS better? She doesn't want to see pt's BS going back to the 500s again. Caregiver is taking pt tomorrow morning to complete blood work including A1C. And I moved Return visit with Dr Hall to 03/11 at 11:20. Please advise Surekha if there are recommendation prior to appt about Bs control. Surekha [phone] * Telephone Encounter - Ana Cross OSA - 03/04/2024 11:07 AM EDT Surekha calling to inform that she is having a hard time controlling Lilibeth's blood sugar. She is wanting to know what she can do to control it in the meantime until her appt with Dr. Hall on 03/17. Transferring to [facility], dedicated nurses for advice documented in this encounter Plan of Treatment Upcoming Encounters Date Type Department Care Team (Late st Contact Info) Description 03/17/2024 10:30 AM EDT Office Visit Pharmacy, [facility] [place] [address] [place] [address] Pharmacist1, [facility] [address] [place] [address] [address] 03/17/2024 11:00 AM EDT Office Visit General Internal Medicine [facility] [place] [address] [place] [address] Tabitha Hall MD [address] [place] [address] 05/04/2024 11:00 AM EDT Office Visit General Internal Medicine [facility] [place] [address] [place] [address] Tabitha Hall MD [address] [place] [address] 06/28/2024 2:20 PM EDT [facility] [place] [address] [place] [address] Alvin Aragon MD [address] [place] [address] 08/18/2024 10:00 AM EST Imaging Radiology, [place] [id number] [place] [address] 08/18/2024 10:40 AM EST Office Visit Rheumatology [place] [id number] [place] [address] Agustin Erickson MD [address] [employer] [place] [address] Scheduled Referrals Name Type Priority Associated Diagnoses Orde r Schedule PHARMACIST MEDS THERAPY MGMT REFERRAL OP Referral Within 10 days (routine) Controlled type 2 diabetes mellitus with hyperglycemia, without long-term current use of insulin (HCC) Ordered: 03/04/2024 Health Maintenance Due Date Last Done Comments COVID-19 Vaccine ( season) 2023 02/21/2023, 06/17/2022, 01/22/2022, Additional history exists Diabetic Foot Exam 01/15/2024 01/14/2023, 0 06/07/2021, 07/27/2020 Diabetic Eye Exam 02/22/2024 02/21/2023, , 02/28/2017, Additional history exists DXA Scan 08/07/2024 08/07/2022, 07/31/2020 HbA1c 09/04/2024 03/05/2024, 09/0 04/2023, 04/23/2023, Additional history exists Albumin/Creatinine Ratio 03/05/2025 024, 01/14/2023, 04/15/2022, Additional history exists TSH 03/05/2025 03/05/2024, 09/0 04/2023, 01/14/2023, Additional history exists DTaP,Tdap,and Td Vaccines (3 - Td or Tdap) 06/27/2033 06/27/2023, 06/03/2012 Zoster Vaccines Completed 07/01/2019, 03/06, 10/06/2009 Pneumococcal Vaccine: 65+ Years Completed 06/07/2021, 01/07/2018, 03/21/2015 Influenza Vaccine (FLU shot) Completed 04/2023, 07/24/2021, 07/06/2020, Additional history exists VITAMIN D LEVEL ONCE IN A LIFETIME-USE SMARTSET# [id number] Completed 06/12/2023, 10/24/2021, 08/17/2020, Additional history exists GARDASIL-HPV IMMUNIZATION SERIES Aged Out No longer eligible based on patient's age to complete this topic Hepatitis B Aged Out No longer eligi ble based on patient's age to complete this topic MENINGOCOCCAL (MENACTRA/MENVEO) Aged Out No longer eligible based on patient's age to complete this topic documented as of this encounter Medical Devices Not on filedocumented as of this encounter Visit Diagnoses Diagnosis Controlled type 2 diabetes mellitus with hyperglycemia, without long-term current use of insulin (HCC)- Primary documented in this encounter Advance Directives Documents on File Type Date Recorded 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
--- OUTSIDE RECORDS SUMMARY | 2024-06-30 23:33 | External Medical Summary | Summary of Care ---
Author Name Unknown Organization [facility] Address [address] [place] [address] Phone [phone] Care Team Providers Care Water Filtration Technician Name Role Phone Tabitha Hall MD Primary Care Provider + Reason for Visit * Reason Comments Diabetes Follow-Up Dosage Adjustment In Person (Anticoag Cl inic) Encounter Details Date Type Department Care Team (Late st Contact Info) Description 03/17/2024 10:30 AM EDT Office Visit Pharmacy, [facility] [address] [facility] [place] [address] Pharmacist1, [facility] [address] [facility] [place] [address] Controlled type 2 diabetes mellitus with hyperglycemia, without long-term current use of insulin ([facility] Allergies Active Allergy Reactions Criticality Noted Date Comments Ibuprofen 06/11/2016 Alendronate Sodium 08/13/2016 Celecoxib Nausea/vomiting 12/22/2013 Cheese Flavor 08/27/2013 Monosodium Glutamate 08/13/2016 Penicillin G 06/11/2016 Salicylates Unknown 05/17/2021 Sulfa Antibiotics 06/11/2016 documented as of this encounter (statuses as of 03/17/2024) Medications Medication Sig Dispensed Refills Start Date [...] without long-term current use of insulin ([facility]),Type 2 diabetes mellitus with hemoglobin A1c goal of less than 8.0% ([facility]) Use to inject B-12 injection once a [...] 09/25/2023 Active Cyanocobalamin 1000 MCG/ML Injection Solution (Cyanocobalamin)Ind [...] Tablet 1 02/11/2024 Active FreeStyle French 3 [place] DeviceIndications:C ontrolled type 2 diabetes mellitus with hyperglycemia, without long-term current use of insulin (HCC) Use as directed. 1 Each 02/25/2024 Active FreeStyle French 3 SensorIndications:C ontrolled type 2 diabetes mellitus with hyperglycemia, without long-term current use of insulin (HCC) Use as directed. 1 Each 02/25/2024 Active glipiZIDE ER 5 MG Oral Tablet Extended Release 24 Hour (Glucotrol XL)Indications:Cont rolled type 2 diabetes mellitus with hyperglycemia, without long-term current use of insulin (HCC) Take 1 Tablet by mouth in the morning. 30 Tablet 1 03/17/2024 Active OneTouch Verio Reflect w/Device KitIndications:Cont rolled type 2 diabetes mellitus with hyperglycemia, without long-term current use of insulin (HCC) Check Blood sugars once daily. 1 Kit 07/12/2022 4 Discontinu ed(Medicat ion List Clean Up) OneTouch Verio In Vitro Strip (Glucose Blood)Indications:C ontrolled type 2 diabetes mellitus with hyperglycemia, without long-term current use of insulin (HCC) Check Blood sugars once daily. 100 Strip 3 07/12/2022 4 Discontinu ed(Medicat ion List Clean Up) OneTouch Delolinda Lancets 33GIndications:Cont rolled type 2 diabetes mellitus with hyperglycemia, without long-term current use of insulin (HCC) Check Blood sugars once daily. 100 Each 3 07/12/2022 4 Discontinu ed(Medicat ion List Clean Up) Julianne Morel Lancradu DevIndications:Cont rolled type 2 diabetes mellitus with hyperglycemia, without long-term current use of insulin (HCC) Check Blood sugars once daily. 1 Each 07/12/2022 4 Discontinu ed(Medicat ion List Clean Up) Levothyroxine Sodium 25 MCG Oral Tablet (Levoxyl)Indication s:Acquired hypothyroidism TAKE ONE TABLET BY MOUTH EVERY DAY FIRST THING IN THE MORNING 90 Tablet 1 02/11/2024 4 Discontinu ed(Medicat ion/Dose Changed) documented as of this encounter (statuses as of 03/17/2024) Active Problems Problem Noted Date Diagnosed Date [...] as of this encounter (statuses as of 03/17/2024) Immunizations Name Administration Dates Next Due COVID-19 [...] encounter Progress Notes * Yunior Phillips, [facility] - 03/17/2024 10:32 AM EDT Medication Therapy Disease Management Clinic - Diabetes Management Progress Note Lilibeth Kong, identified by name and date of , is a 84 year old female being seen for diabetes management/education. Patient presents for return diabetic visit. DIABETES: Current diabetic medications: Metformin ER 500mg 1 tabs BID with meals (Dr. Hall did not want dose decreased) STOP: Trulicity 0.75mg once weekly Medication Injection Site: N/A Lifestyle: Diet: unchanged History of Treatment Barriers: Lifestyle: None Therapy considerations: None Medication: None Glucose Review/SMBG: No log. She was in ER in [place] and BG >500 - confusion Hypoglycemia: Does your blood sugar go below 70 mg/dL? No Hyperglycemia symptoms present: polyurea, polydipsia, confusion Goal <8 Recent Labs Units 03/05/24 0829 06/12/23 0930 04/23/23 1105 HEMOGLOBIN A1C - [facility] % 10.7* 7.1* -- HEMOGLOBIN A1C POCT - [facility] % -- -- 7.0* Recent Labs Units 03/05/24 0829 10/13/23 1141 04/07/23 1612 ESTIMATED GLOMERULAR FILTRATION RATE - [facility] mL/min 85 88 87 CREATININE - [facility] mg/dL 0.7 0.6 0.6 Lab Results Component Value Date/Time CREATININE - [facility] 0.7 03/05/2024 08:29 AM CREATININE - [facility] 0.6 10/13/2023 11:41 AM CREATININE - [facility] 0.6 04/07/2023 04:12 PM CREATININE - [facility] 0.5 10/12/2020 10:00 AM [...] PM HYPERTENSION: Patient on ACEi/ARB: no, not indicated BP Readings from Last 3 Encounters: 12/15/23 124/62 10/20/23 125/62 10/15/23 124/72 Blood pressure at goal: yes HYPERLIPIDEMIA: Patient is taking moderate or high intensity statin: yes, Rosuvastatin 3 days a week. Wanted to start fenofibrate but decreased kidney function HEALTH MAINTENANCE REVIEW: Health Maintenance Due Topic Date Due COVID-19 Vaccine ( season) 2023 Diabetic Foot Exam 01/15/2024 Depression Monitoring 01/15/2024 Diabetic Eye Exam 02/22/2024 ASSESSMENT & PLAN: ICD-10-CM 1. Controlled type 2 diabetes mellitus with hyperglycemia, without long-term current use of insulin(HCC) E11.65 BG Readings - Blood sugars not available. Placed Dexcom CGM today. Sent order to [facility] for French 3 due to difficulty inserting Dexcom. Medications - Reviewed current regimen, patient is adherent to regimen. Starting Glipizide ER 5mg daily on 03/22 to see if BG improve. She may need to start long acting insulin if Glipizide dose not change BG. Diet, Exercise, Lifestyle - No significant lifestyle changes since last visit. Discussed with patient today. Patient is agreeable to wear Dexcom/French. Patient aware to contact clinic if any hypoglycemia before next visit. MEDICATION CHANGES: yes, see below; preferred pharmacy: [facility] Diabetic Medications: Metformin ER 500mg 1 tabs BID with meals (Dr. Hall did not want dose decreased) START: Glipizide ER 5mg daily HEALTH MAINTENANCE INTERVENTIONS: Labs: Up to Date Immunizations: Up to Date Foot Exam: Complete with next PCP visit on 03/17 Eye Exam: Complete with next PCP visit on 03/17 Annual Wellness Visit: Up to Date FOLLOW UP: Phone call follow up in 1 week 03/24/2024 Yunior Sanchez RPh, [facility] Clinical Pharmacist - Embosser Apprentice Medication Therapy Management Clinic 03/17/2024, 10:33 AM documented in this encounter Plan of Treatment Upcoming Encounters Date Type Department Care Team (Late st Contact Info) Description 03/24/2024 9:10 AM EDT Telemedicine Pharmacy, [facility] [address] [facility] [place] [address] Pharmacist1, [facility] [address] [facility] [place] [address] 05/04/2024 11:00 AM EDT Office Visit General Internal Medicine [facility] [address], [place] [address] Tabitha Hall MD [address] [facility] [place], [place] [address] 06/28/2024 2:20 PM EDT Office Visit Neurology [facility] [address] [place], [place] [address] Alvin Aragon MD [address] [facility] [place] [address] 06/29/2024 9:20 AM EDT Office Visit General Internal Medicine [facility] [address] [place], [place] [address] Tabitha Hall MD [address] [facility] [place], [place] [address] 08/18/2024 10:00 AM EST Imaging Radiology, [address] [place] [address] 08/18/2024 10:40 AM EST Office Visit Rheumatology [address] [place], [place] [address] Agustin Erickson MD [facility] [employer] [place] [address] Health Maintenance Due Date Last Done Comments [...] 03/05/2024, 090 04/2023, 01/14/2023, Additional history exists DTaP,Tdap,and Td Vaccines (3 - Td or Tdap) 06/27/2033 06/27/2023, 06/03/2012 Zoster Vaccines Completed 07/01/2019, 03/06, 10/06/2009 Pneumococcal Vaccine: 65+ Years Completed 06/07/2021, 01/07/2018, 03/21/2015 Influenza Vaccine (FLU shot) Completed 04/2023, 07/24/2021, 07/06/2020, Additional history exists VITAMIN D LEVEL ONCE IN A LIFETIME-USE SMARTSET# [id number] Completed 06/12/2023, 10/24/2021, 08/17/2020, Additional history exists [...] Documents on File Type Date Recorded Patient Correspondence Transcriber Expl anation POLST 06/06/2021 POLST LIANNE REESE ORDERS FOR LIFE-SUSTAINING TREATMENT Care Teams Water Filtration Technician Relationship Specialty Start Date End Date Tabitha Hall MD [address] [place], [place] [address] PCP - General Internal Medicine 07/27/20 documented as of this encounter
--- OUTSIDE RECORDS SUMMARY | 2024-06-30 23:33 | External Medical Summary ---
Author Name Unknown Address Unknown Organization K01:[facility] [place] [address] [facility] [address] Laboratory Report Ordering Provider Test Date Status LLOYD PERKINS 03/05/2024 08:29:26 Final Observation Date Value Abnormality Reference (Units ) Status HbA1C 03/05/2024 08:29:26 10.7 Above high normal 4. 0-5.6 (%) Final The use of HbA1c to monitor glycemic status is based on normal hemoglobin and HbA composition. This test should not be used in patients with abnormal hemoglobin that affects the half life of the red blood cell or the in vivo glycation rates. Glucose, estimated average 03/05/2024 08:29:26 260 Above high normal <126 (mg/dL) [place] Performing Location [facility] [address] [facility] [address]
--- OUTSIDE RECORDS SUMMARY | 2024-06-30 23:33 | External Medical Summary | Summary of Care ---
Author Name Unknown Organization [facility] Address [address] [place] [address] Phone [phone] Care Team Providers Care Interim Controller Name Role Phone Tabitha Hall MD Primary Care Provider + Reason for Referral * Evaluate & Treat - Unlimited Visits (Within 10 days (routine)) - Pending Review Specialty Diagnoses / Procedures Referred By Michael awad Referred To Contact Pharmacist / Pharmacy Diagnoses Controlled type 2 diabetes mellitus with hyperglycemia, without long-term current use of insulin ([facility]) Tabitha Hall MD [address] [place] [address] Referral ID Status Reason Start Date Expiration Date Visits Requested Visits Authorized [id number] Pending Review Specialty Services Required 03/04/2024 99 99 Question Answer Referral Priority Within 10 days (routine) Where should this appointment be scheduled? [facility] Referring Provider Role: Primary Care Reason for Referral: DM Target A1c: < 7 Comments Pharmacist Medication Therapy Management: Minimum frequency patient should be seen in person for medication management: as appropriate per clinical condition and patient status By my signature, I understand that my patient Lilibeth Kong will have her medication therapy managed by the [facility] Medication Therapy Disease Management Clinic ([facility]) per established policies, procedures, and protocols. I also certify that this referral may serve as an initiation of service for the management of drug therapy in the above noted patient. [facility] providers will be responsible for scheduling patient visits, obtaining appropriate laboratory studies, and adjusting medication management therapy per patient's need, in addition to those roles spelled out in the clinic policy, procedures, and drug management protocols. I understand that the service provided by the [facility] is voluntary and have informed patient that they can refuse the service at their discretion. I am aware that the [facility] Clinic will provide me with a copy of the patient encounter via my [employer]. I authorize the [facility] to carry out these activities on my behalf. I consider this program to be a necessary part of the patient's medical care. Tabitha Hall MD Reason for Visit * Reason Onset Date Comments Advice 03/04/2024 Encounter Details Date Type Department Care Team (Late st Contact Info) Description 03/04/2024 Telephone General Internal Medicine [facility] [place] [address] [place] [address] Tabitha Hall MD [address] [place] [address] Advice Allergies Active Allergy Reactions Criticality Noted [...] hyperglycemia, without long-term current use of insulin ([facility]) Check Blood sugars once daily. 1 Kit 07/12/2022 Active Additional Information Patient not taking.Reported on 10/20/2023 OneTouch Verio In Vitro Strip (Glucose Blood)Indications:Co ntrolled type 2 diabetes mellitus with hyperglycemia, without long-term current use of insulin ([facility]) Check Blood sugars once daily. 100 Strip 3 07/12/2022 Active Additional Information Patient not taking.Reported on 10/20/2023 OneTouch Delica Lancets 33GIndications:Contr olled type 2 diabetes mellitus with hyperglycemia, without long-term current use of insulin ([facility]) Check Blood sugars once daily. 100 Each 3 07/12/2022 Active Additional Information Patient not taking.Reported on 10/20/2023 OneTouch Delica Lancing DevIndications:Contr olled type 2 diabetes mellitus with hyperglycemia, without long-term current use of insulin ([facility]) Check Blood sugars once daily. 1 Each 07/12/2022 Active Additional Information Patient not taking.Reported on 10/20/2023 BD Insulin Syringe 25G X 5/8" 1 ML (Insulin Syringe-Needle U-100)Indications:Co ntrolled type 2 diabetes mellitus with hyperglycemia, without long-term current use of insulin ([facility]),Type 2 diabetes mellitus with hemoglobin A1c goal of less than 8.0% ([facility]) Use to inject B-12 injection [...] Tablet 1 02/11/2024 Active FreeStyle French 3 [place] DeviceIndications:Co ntrolled type 2 diabetes mellitus with [...] at 11am on 03/17/24 after she sees [facility] pharmacy at 10:30am. Her sugars are very [...] will be available 03/08. Yunior Sanchez RPh, [facility] Clinical Pharmacist Medication Therapy Management Clinic 03/04/2024, 4:14 PM * Telephone Encounter - Tabitha Hall MD - 03/04/2024 11:49 AM EDT Noted. I am also in touch with pt's son Mata regards to her ER visit. For her high blood glucose, I did send French continuous glucose monitoring and they are checking it. Keep scheduled visit with me. Refer to [facility] pharmacy for further management. Please schedule. Will [...] 2 weeks. A week ago while in [facility] family took her to the ER due [...] prior to appt about Bs control. Surekha [phone] * Telephone Encounter - Ana Cross OSA - 03/04/2024 11:07 AM EDT Surekha calling to inform that she is having a hard time controlling Lilibeth's blood sugar. She is wanting to know what she can do to control it in the meantime until her appt with Dr. Hall on 03/17. Transferring to [facility], dedicated nurses for advice documented in this encounter Plan of Treatment Upcoming Encounters Date Type Department Care Team (Late st Contact Info) Description 03/17/2024 10:30 AM EDT Office Visit Pharmacy, [facility] [place] [address] [place] [address] [address] Pharmacist1, [facility] [address] [place] [address] 03/17/2024 11:00 AM EDT Office Visit General Internal Medicine [facility] [place] [address] [place] [address] Tabitha Hall MD [address] [place] [address] 05/04/2024 11:00 AM EDT Office Visit General Internal Medicine [facility] [place] [address] [place] [address] Tabitha Hall MD [address] [place] [address] 06/28/2024 2:20 PM EDT Office Visit [place] [place] [place] [address] [place] [address] Alvin Aragon MD [address] [place] [place] [address] 08/18/2024 10:00 AM EST Imaging Radiology, [place] [address] [place] [place] [address] 08/18/2024 10:40 AM EST Office Visit Rheumatology [place] [address] [place] [place] [address] Agustin Erickson MD [address] [employer] [place] [address] Scheduled Referrals Name Type Priority Associated Diagnoses [...] D LEVEL ONCE IN A LIFETIME-USE SMARTSET# [id number] Completed 06/12/2023, 10/24/2021, 08/17/2020, Additional history exists [...] Documents on File Type Date Recorded Patient Fiberglass Quality Technician Expl anation POLST 06/06/2021 ANTOINETTE REESE ORDERS FOR LIFE-SUSTAINING TREATMENT Care Teams Interim Controller Relationship Specialty Start Date End Date Tabitha Hall MD [address] [facility] [place] [address] PCP - General Internal Medicine 07/27/20 documented as of this encounter
--- OUTSIDE RECORDS SUMMARY | 2024-06-30 23:33 | External Medical Summary ---
Author Name Unknown Address Unknown Organization K01:[facility] - [address] [place] [address] Laboratory Report Ordering Provider Test Date Status LLOYD PERKINS 03/05/2024 08:29:34 Final Observation Date Value Abnormality Reference (Units ) Status LDL, (direct) 03/05/2024 08:29:34 57 <=129 (mg/dL) Final LDL Cholesterol Reference Ra nges (mg/dL):
<70 Target level for high risk ASCVD patient
<100 Optimal for general population
100-129 Near optimal for general population
130-159 Borderline high
160-189 High
>=190 Very high Performing Location [facility] - [address] [place] [address]
--- OUTSIDE RECORDS SUMMARY | 2024-06-30 23:33 | External Medical Summary | Summary of Care ---
Author Name Unknown Organization [facility] Address [address] [place] [address] Phone [phone] Care Team Providers Care Veneer Jointer Offbearer Name Role Phone Tabitha Hall MD Primary Care Provider + Reason for Visit * Reason Comments Diabetes Follow-Up Dosage Adjustment Via Phone (anticoag Cl inic) Encounter Details Date Type Department Care Team (Late st Contact Info) Description 03/08/2024 5:30 PM EDT Pharmacy Pharmacy, [facility] [address] [facility] [place] [address] Pharmacist1, [facility] [address] [facility] [place] [address] Controlled type 2 diabetes mellitus with hyperglycemia, without long-term current use of insulin ([facility])* Allergies Active Allergy Reactions Criticality Noted Date Comments Ibuprofen 06/11/2016 Alendronate Sodium 08/13/2016 Celecoxib Nausea/vomiting 12/22/2013 Cheese Flavor 08/27/2013 Monosodium Glutamate 08/13/2016 Penicillin G 06/11/2016 Salicylates Unknown 05/17/2021 Sulfa Antibiotics 06/11/2016 documented as of this encounter (statuses as of 03/16/2024) Medications Medication Sig Dispensed Refills Start Date [...] hyperglycemia, without long-term current use of insulin ([facility]) Check Blood sugars once daily. 1 Kit 07/12/2022 Active Additional Information Patient not taking.Reported on 10/20/2023 OneTouch Verio In Vitro Strip (Glucose Blood)Indications:Co ntrolled type 2 diabetes mellitus with hyperglycemia, without long-term current use of insulin ([facility]) Check Blood sugars once daily. 100 Strip 3 07/12/2022 Active Additional Information Patient not taking.Reported on 10/20/2023 OneTouch Delica Lancets 33GIndications:Contr olled type 2 diabetes mellitus with hyperglycemia, without long-term current use of insulin ([facility]) Check Blood sugars once daily. 100 Each 3 07/12/2022 Active Additional Information Patient not taking.Reported on 10/20/2023 OneTouch Delica Lancing DevIndications:Contr olled type 2 diabetes mellitus with hyperglycemia, without long-term current use of insulin ([facility]) Check Blood sugars once daily. 1 Each 07/12/2022 Active Additional Information Patient not taking.Reported on 10/20/2023 BD Insulin Syringe 25G X 5/8" 1 ML (Insulin Syringe-Needle U-100)Indications:Co ntrolled type 2 diabetes mellitus with hyperglycemia, without long-term current use of insulin ([facility]),Type 2 diabetes mellitus with hemoglobin A1c goal of less than 8.0% ([facility]) Use to inject B-12 injection once [...] Tablet 1 02/11/2024 Active FreeStyle French 3 [place] DeviceIndications:Co ntrolled type 2 diabetes mellitus with hyperglycemia, without long-term current use of insulin (HCC) Use as directed. 1 Each 02/25/2024 Active FreeStyle French 3 SensorIndications:Co ntrolled type 2 diabetes mellitus with hyperglycemia, without long-term current use of insulin (HCC) Use as directed. 1 Each 02/25/2024 Active documented as of this encounter (statuses as of 03/16/2024) Active Problems Problem Noted Date Diagnosed Date [...] as of this encounter (statuses as of 03/16/2024) Immunizations Name Administration Dates Next Due COVID-19 [...] this encounter Progress Notes * Yunior Phillips, [facility] - 03/08/2024 11:32 AM EDT Patient Phone Numbers Left message at 11:37 AM and 3:16 PM asking for a return call to discuss lab results and med changes. Component Latest Ref Rng 03/05/2024 BUN 6 - 20 mg/dL 12 Creatinine 0.5 - 1.0 mg/dL 0.7 Estimated Glomerular Filtration Rate >=60 mL/min 85 Sodium 135 - 146 mmol/L 133 (L) Potassium 3.5 - 5.1 mmol/L 4.5 Chloride 98 - 107 mmol/L 97 (L) CO2 22 - 32 mmol/L 23 Anion Gap 7 - 15 mmol/L 13 Glucose 70 - 120 mg/dL 247 (H) Albumin 3.8 - 5.0 g/dL 4.4 AST 10 - 35 U/L 18 Alkaline Phosphatase 35 - 130 U/L 73 Bilirubin, Total <=1.2 mg/dL 0.4 Calcium 8.4 - 10.2 mg/dL 9.6 Protein 6.0 - 8.3 g/dL 6.9 ALT 10 - 35 U/L 21 Albumin, Random Urine mg/dL 23.46 Creatinine, Random Urine mg/dL 97 Albumin / Creatinine Ratio, Urine <30 mg/g Creat 242 (H) Hemoglobin A1C 4.0 - 5.6 % Goal< 8 10.7 (H) Estimated Average Glucose <126 mg/dL 260 (H) LDL Cholesterol (Direct Measure) <=129 mg/dL 57 Diabetic Medications: Metformin ER 500mg 1 tabs BID with meals (Dr. Hall did not want dose decreased) STOP: Trulicity 0.75mg once weekly Yunior Sanchez RPh, [facility] Clinical Pharmacist Medication Therapy Management Clinic 03/08/2024, 11:33 AM documented in this encounter Plan of Treatment Upcoming Encounters Date Type Department Care Team (Late st Contact Info) Description 03/17/2024 10:30 AM EDT Office Visit Pharmacy, [facility] [place] [address] [facility] [place] [address] Pharmacist1, [facility] [address] [place] [address] 03/17/2024 11:00 AM EDT Office Visit General Internal Medicine [facility] [place] [address] [place] [address] Tabitha Hall MD [address] [place] [address] 05/04/2024 11:00 AM EDT Office Visit General Internal Medicine [facility] [place] [address] [place] [address] Tabitha Hall MD [address] [place] [address] 06/28/2024 2:20 PM EDT Office Visit Neurology [facility] [address] [place] [address] Alvin Aragon MD [address] [place], [place] [address] 08/18/2024 10:00 AM EST Imaging Radiology, [address] [place] [address] 08/18/2024 10:40 AM EST Office Visit Rheumatology [address] [place], [place] [address] Agustin Erickson MD [address] [facility] [place], [place] [address] Health Maintenance Due Date Last Done Comments COVID-19 Vaccine ( season) 2023 02/21/2023, 06/17/2022, 01/22/2022, Additional history exists Depression Monitoring 01/15/2024 01/14/2023 Diabetic Foot Exam 01/15/2024 01/14/2023, 0 06/07/2021, 07/27/2020 Diabetic Eye Exam 02/22/2024 02/21/2023, , 02/28/2017, Additional history exists DXA Scan 08/07/2024 08/07/2022, 07/31/2020 HbA1c 09/04/2024 03/05/2024, 09/0 04/2023, 04/23/2023, Additional history exists Albumin/Creatinine Ratio 03/05/20252 024, 01/14/2023, 04/15/2022, Additional history exists TSH 03/05/2025 03/05/2024, 09/0 04/2023, 01/14/2023, Additional history exists DTaP,Tdap,and Td Vaccines (3 - Td or Tdap) 06/27/2033 06/27/2023, 06/03/2012 Zoster Vaccines Completed 07/01/2019, 03/06, 10/06/2009 Pneumococcal Vaccine: 65+ Years Completed 06/07/2021, 01/07/2018, 03/21/2015 Influenza Vaccine (FLU shot) Completed 04/2023, 07/24/2021, 07/06/2020, Additional history exists VITAMIN D LEVEL ONCE IN A LIFETIME-USE SMARTSET# [id number] Completed 06/12/2023, 10/24/2021, 08/17/2020, Additional history exists [...] Documents on File Type Date Recorded Patient Demand Generator Manager Expl anation POLST 06/06/2021 POLST LIANNE REESE ORDERS FOR LIFE-SUSTAINING TREATMENT Care Teams Veneer Jointer Offbearer Relationship Specialty Start Date End Date Tabitha Hall MD [address] [place] [address] PCP - General Internal Medicine 07/27/20 documented as of this encounter
--- OUTSIDE RECORDS SUMMARY | 2024-06-30 23:33 | External Medical Summary ---
Author Name Unknown Address Unknown Organization K01:[facility] [place] [facility] [place] [address] [place] [address] Laboratory Report Ordering Provider Test Date Status NICHO HESS 03/05/2024 08:32:54 Final Normal: <30 mg/g creatinine< br/>High: 30-300 mg/g creatinine
Very High: >300 mg/g creatinine
Nephrotic: >2200 mg/g creatinine Observation Date Value Abnormality Reference (Units ) Status Albumin, Urine 03/05/2024 08:32:54 23.46 (mg/dL) Final Creatinine, Urine 03/05/2024 08:32:54 97 (mg/dL) Final Albumin/Creatinine [Mass Ratio] in Urine 03/05/2024 08:32:54 242 Above high normal <30 (mg/g Creat) Final Performing Location [facility] [place] [address] [place] [address]
--- OUTSIDE RECORDS SUMMARY | 2024-06-30 23:33 | External Medical Summary | Summary of Care ---
Author Name Unknown Organization [facility] Address [address] [place] [address] Phone [phone] Care Team Providers Care Cattle Driver Name Role Phone Tabitha Hall MD Primary Care Provider + Reason for Visit * Reason Comments Diabetes Follow-Up Dosage Adjustment Via Phone (anticoag Cl inic) Encounter Details Date Type Department Care Team (Late st Contact Info) Description 03/24/2024 9:10 AM EDT Telemedicine Pharmacy, [facility] [address] Pharmacist1, [facility] [address] [facility] [place] [address] Controlled type 2 diabetes mellitus with hyperglycemia, without long-term current use of insulin ([facility])* Allergies Active Allergy Reactions Criticality Noted Date Comments Ibuprofen 06/11/2016 Alendronate Sodium 08/13/2016 Celecoxib Nausea/vomiting 12/22/2013 Cheese Flavor 08/27/2013 Monosodium Glutamate 08/13/2016 Penicillin G 06/11/2016 Salicylates Unknown 05/17/2021 Sulfa Antibiotics 06/11/2016 documented as of this encounter (statuses as of 03/24/2024) Medications Medication Sig Dispensed Refills Start Date [...] hyperglycemia, without long-term current use of insulin ([facility]),Type 2 diabetes mellitus with hemoglobin A1c goal of less than 8.0% ([facility]) Use to inject B-12 injection once [...] Tablet 1 02/11/2024 Active FreeStyle French 3 [place] DeviceIndications:Co ntrolled type 2 diabetes mellitus with hyperglycemia, without long-term current use of insulin (HCC) Use as directed. 1 Each 02/25/2024 Active FreeStyle French 3 SensorIndications:Co ntrolled type 2 diabetes mellitus with hyperglycemia, without long-term current use of insulin ([facility]CC) Use as directed. 1 Each 02/25/2024 Active Levothyroxine Sodium 25 MCG Oral Tablet (Levoxyl)Indications :Acquired hypothyroidism 2 pills once daily Friday to and take one oull Friday to Friday.(at least 30 min prior to breakfast or other meds) 90 Tablet 3 03/17/2024 Active glipiZIDE ER 5 MG Oral Tablet Extended Release 24 Hour (Glucotrol XL)Indications:Contr olled type 2 diabetes mellitus with hyperglycemia, without long-term current use of insulin (HCC) Take 1 Tablet by mouth in the morning. 30 Tablet 1 03/17/2024 Active documented as of this encounter (statuses as of 03/24/2024) Active Problems Problem Noted Date Diagnosed Date [...] as of this encounter (statuses as of 03/24/2024) Immunizations Name Administration Dates Next Due COVID-19 [...] of this encounter Progress Notes * Yunior Phillips [facility] - 03/24/2024 9:09 AM EDT Medication Therapy Disease Management Clinic - Diabetes Management Progress Note Patient Phone Numbers After connecting to the patient via telephone, the patient was identified by name and date of . Patient was then informed that this was a telephone call only visit. The patient agreed to participate. Visit Disposition: Routine follow-up Total call duration was 6 minutes. DIABETES: Current diabetic medications: Metformin ER 500mg 1 tabs BID with meals (Dr. Hall did not want dose decreased) START: Glipizide ER 5mg daily Medication Injection Site: N/A Lifestyle: Diet: unchanged History of Treatment Barriers: Lifestyle: None Therapy considerations: None Medication: None Glucose Review/SMBG: Readings obtained from patient documented BG logbook Started Glipizide Friday and all BG <200 and no readings <100. Hypoglycemia: Does your blood sugar go below [...] indicated BP Readings from Last 3 Encounters: 03/17/24 124/58 12/15/23 124/62 10/20/23 125/62 Blood pressure at goal: yes HYPERLIPIDEMIA: Patient is taking moderate or high intensity statin: yes, Rosuvastatin 3 days a week. Wanted to start fenofibrate but decreased kidney function HEALTH MAINTENANCE REVIEW: Health Maintenance Due Topic Date Due COVID-19 Vaccine ( season) 2023 Diabetic Foot Exam 01/15/2024 Depression Monitoring 01/15/2024 Diabetic Eye Exam 02/22/2024 *BISPHONATE OR OTHER ACCEPTABLE MEDICATION NEEDED FOR OSTEOPOROSIS (REFER TO SMARTSET #1146) Never done ASSESSMENT & PLAN: ICD-10-CM 1. Controlled type 2 diabetes mellitus with hyperglycemia, without long-term current use of insulin(HCC) E11.65 BG Readings - Blood sugars controlled. BG at goal after starting Glipizide. Patient to call clinic with any lows Medications - Reviewed current regimen, patient is adherent to regimen. Diet, Exercise, Lifestyle - No significant lifestyle changes since last visit. Discussed with patient and caregiver today. Patient is agreeable to SMBG 2-3 time(s) daily until French 3 system available (awaiting Dr. Hall signature). Patient aware to contact clinic if any hypoglycemia before next visit. MEDICATION CHANGES: no change Diabetic Medications: Metformin ER 500mg 1 tabs BID with meals (Dr. Hall did not want dose decreased) Glipizide ER 5mg daily HEALTH MAINTENANCE INTERVENTIONS: Labs: Up to Date Immunizations: Up to Date Foot Exam: Complete with next PCP visit on 06/29 Eye Exam: Complete with next PCP visit on 06/29 Annual Wellness Visit: Up to Date FOLLOW UP: Return to clinic in 3 months 06/29/2024 Yunior Sanchez RPh, CACP, CDE Clinical Pharmacist Medication Therapy Management Clinic 03/24/2024 9:09 AM documented in this encounter Plan of Treatment Upcoming Encounters Date Type Department Care Team (Late st Contact Info) Description 05/04/2024 11:00 AM EDT Office Visit General Internal Medicine [facility] [place] [address] [place] [address] Tabitha Hall MD [address] [place] [address] 06/28/2024 2:20 PM EDT Office Visit [place] [facility] [place] [address] [place] [address] [address] [address] Alvin Aragon MD [address] [place] [address] 06/29/2024 8:50 AM EDT Office Visit Pharmacy, [facility] [address] [facility] [place] [address] Pharmacist1, [facility] [address] [place] [address] [address] 06/29/2024 9:20 AM EDT Office Visit General Internal Medicine [facility] [place] [address] [facility] [place] [place] [address] Tabitha Hall MD [address] [facility] [place] [address] 08/18/2024 10:00 AM EST Imaging Radiology, [address] [place] [address] 08/18/2024 10:40 AM EST Office Visit Rheumatology [address] [place] [address] Agustin Erickson MD [facility] [place], [place] [address] Health Maintenance Due Date Last Done Comments COVID-19 Vaccine ( season) 2023 02/21/2023, 06/17/2022, 01/22/2022, Additional history exists Depression Monitoring 01/15/2024 01/14/2023 Diabetic Foot Exam 01/15/2024 01/14/2023, 0 06/07/2021, 07/27/2020 Diabetic Eye Exam 02/22/2024 02/21/2023, , 02/28/2017, Additional history exists *BISPHONATE OR OTHER ACCEPTABLE MEDICATION NEEDED FOR OSTEOPOROSIS (REFER TO SMARTSET #1146) 03/19/2024 DXA Scan 08/07/2024 08/07/2022, 07/31/2020 HbA1c 09/04/2024 [...] D LEVEL ONCE IN A LIFETIME-USE SMARTSET# [id number] Completed 06/12/2023, 10/24/2021, 08/17/2020, Additional history exists [...] Documents on File Type Date Recorded 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
--- OUTSIDE RECORDS SUMMARY | 2024-06-30 23:33 | External Medical Summary | Summary of Care ---
Author Name Unknown Organization [facility] Address [address] [place] [address] Phone [phone] Care Team Providers Care Industrial Electrician Journeyman Name Role Phone Tabitha Hall MD Primary Care Provider + Reason for Visit * Reason Comments eRx-Medication Refill Encounter Details Date Type Department Care Team (Late st Contact Info) Description 04/06/2024 Refill General Internal Medicine [facility] 200 [facility] [place] [address] Tabitha Hall MD 200 [place] [address] DM (diabetes mellitus), type 2, uncontrolled, with hyperosmolarity (HCC) Allergies Active Allergy Reactions Criticality Noted Date Comments Ibuprofen 06/11/2016 Alendronate Sodium 08/13/2016 Celecoxib Nausea/vomiting 12/22/2013 Cheese Flavor 08/27/2013 Monosodium Glutamate 08/13/2016 Penicillin G 06/11/2016 Salicylates Unknown 05/17/2021 Sulfa Antibiotics 06/11/2016 documented as of this encounter (statuses as of 04/07/2024) Medications Medication Sig Dispensed Refills Start Date [...] hyperglycemia, without long-term current use of insulin ([facility]),Type 2 diabetes mellitus with hemoglobin A1c goal of less than 8.0% ([facility]) Use to inject B-12 injection once [...] Oral Tablet Extended Release 24 Hour (Glucotrol XL)Indications:Contro lled type 2 diabetes mellitus with hyperglycemia, without long-term current use of insulin (HCC) Take 1 Tablet by mouth in the morning. 30 Tablet 1 03/17/2024 Active FreeStyle French 3 [place] DeviceIndications:DM (diabetes mellitus), type 2, uncontrolled, with hyperosmolarity (HCC) Use as directed. 1 Each 03/29/2024 Active FreeStyle French 3 SensorIndications:DM (diabetes mellitus), type 2, uncontrolled, with hyperosmolarity (HCC) Use as directed. Diagnosis: Type 2 DM 1 Each 03/29/2024 Active glipiZIDE ER 2.5 MG Oral Tablet Extended Release 24 Hour (Glucotrol XL)Indications:Contro lled type 2 diabetes mellitus with hyperglycemia, without long-term current use of insulin (HCC) Take 1 Tablet by mouth in the morning. With 5mg to equal 7.5mg dose). 90 Tablet 3 04/06/2024 Active documented as of this encounter (statuses as of 04/07/2024) Active Problems Problem Noted Date Diagnosed Date [...] as of this encounter (statuses as of 04/07/2024) Immunizations Name Administration Dates Next Due COVID-19 [...] encounter Miscellaneous Notes * Telephone Encounter - Maurice Cornelius RPh - 04/07/2024 11:05 AM EDT Refused Prescriptions: Disp Refills FreeStyle French 3 Sensor 1 Each 0 Sig: DIRECTEDRefused By: MAURICE CORNELIUS for Refusal: Duplicate Request documented in this encounter Plan of Treatment Upcoming Encounters Date Type Department Care Team (Late st Contact Info) Description 05/04/2024 11:00 AM EDT Office Visit General Internal Medicine [facility] [place] [address] [place], [place] [address] Tabitha Hall MD [address] [place] [address] 06/28/2024 2:20 PM EDT Office Visit Neurology [facility] [place] [address] [place], [place] [address] Alvin Aragon MD [address] [place], [place] [address] 06/29/2024 8:50 AM EDT Office Visit Pharmacy, [facility] [address] [place] [address] [address] Pharmacist1, [facility] [address] [place] [address] 06/29/2024 9:20 AM EDT Office Visit General Internal Medicine [facility] [place] [address] [place], [place] [address] Tabitha Hall MD [address] [place], [place] [address] 08/18/2024 10:00 AM EST Imaging Radiology, [place] [address] [address], [place] [address] 08/18/2024 10:40 AM EST Office Visit Rheumatology [place] [address] [facility] [address] [place], [place] [address] Agustin Erickson MD [address] [place], [place] [address] Health Maintenance Due Date Last Done Comments [...] D LEVEL ONCE IN A LIFETIME-USE SMARTSET# [id number] Completed 06/12/2023, 10/24/2021, 08/17/2020, Additional history exists [...] as of this encounter Visit Diagnoses Diagnosis DM (diabetes mellitus), type 2, uncontrolled, with hyperosmolarity (HCC) Type II or unspecified type diabetes mellitus with hyperosmolarity, uncontrolled documented in this encounter Advance Directives Documents on File Type Date Recorded Patient Clinical Assessment Manager Expl anation POLST 06/06/2021 ANTOINETTE REESE ORDERS FOR LIFE-SUSTAINING TREATMENT Care Teams Industrial Electrician Journeyman Relationship Specialty Start Date End Date Tabitha Hall MD 200 [facility] [place] [address] PCP - General Internal Medicine 07/27/20 documented as of this encounter
--- OUTSIDE RECORDS SUMMARY | 2024-06-30 23:33 | External Medical Summary | Summary of Care ---
Author Name Unknown Organization [facility] Address [address] [place] [address] Phone [phone] Care Team Providers Care Top Lift Nailer Name Role Phone Tabitha Hall MD Primary Care Provider + Reason for Visit * Reason Comments Follow Up 6 month follow up. O nly concerns are high blood sugars. Pt is no longer driving anymore. Encounter Details Date Type Department Care Team (Latest Contact Info) Description 03/17/2024 11:00 AM EDT Office Visit General Internal Medicine [facility] 200 [facility] [place] [address] Tabitha Hall MD 200 [facility] [address] DM type 2, goal HbA1c < 7% ([facility])*; Acquired hypothyroidism; SIADH (syndrome of inappropriate ADH production) ([facility]); Generalized OA; Senile osteoporosis Allergies Active Allergy Reactions Criticality Noted Date [...] without long-term current use of insulin ([facility]),Type 2 diabetes mellitus with hemoglobin A1c goal of less than 8.0% ([facility]) Use to inject B-12 [...] Tablet 1 02/11/2024 Active FreeStyle French 3 [place] DeviceIndications:C ontrolled type 2 diabetes mellitus with [...] other meds) 90 Tablet 3 03/17/2024 Active OneTouch Verio Reflect w/Device KitIndications:Cont [...] Discontinu ed(Medicat ion List Clean Up) OneTouch Delica Lancets 33GIndications:Cont rolled type 2 diabetes mellitus with hyperglycemia, without long-term current use of insulin (HCC) Check Blood sugars once daily. 100 Each 3 07/12/2022 4 Discontinu ed(Medicat ion List Clean Up) OneTouch Delica Lancing DevIndications:Cont rolled type 2 [...] Sign Reading Time Taken Comments Blood Pressure 124/58 03/17/2024 11:15 AM EDT Pulse 97 03/17/2024 11:15 AM EDT Temperature 36.7 C (98 F) 03/17/2024 11:15 AM EDT Respiratory Rate - - Oxygen Saturation 96% 03/17/2024 11:15 AM EDT Inhaled Oxygen Concentration - - Weight 45.8 kg (101 lb) 03/17/2024 11:15 AM EDT Height - - Body Mass Index 25.28 06/12/2023 8:03 AM EDT documented in this encounter Progress Notes * Tabitha Hall MD - 03/17/2024 12:02 PM EDT HPI: Lilibeth Kong is a 84 year old female who presents with: Chief Complaint Patient presents with Follow Up 6 month follow up. Only concerns are high blood sugars. Pt is no longer driving anymore. Patient is here for the recheck. Chart reviewed with the patient including current meds, last labs and HM. No acute event since we saw patient last time including no recent fall or injuries. Here with caregiver. States glucose readings are very high last few months. Last few weeks have started working on diet. States will hold off seeing endocrine for next few months and let us know if change her mind. Agreeable to start low dose of Glipizide. We again went over and strongly advised against driving looking at her clinical history, eval and neuro recommendation. States was on Trulicity but as was losing more weight was advised to stop. Patient Active Problem List Diagnosis Senile osteoporosis Diabetes type 2, controlled ([facility]) Generalized OA Hypothyroidism Glaucoma DDD (degenerative disc disease), lumbosacral DDD (degenerative disc disease), cervical Controlled type 2 diabetes mellitus with hyperglycemia, without long-term current use of insulin ([facility]) SIADH (syndrome of inappropriate ADH production) ([facility]) Dislocation closed, finger, subsequent encounter Recurrent major depressive disorder, in partial remission ([facility]) Current Outpatient Medications Medication Sig Dispense Refill Cholecalciferol 2000 UNITS TABS Take by mouth. 1 daily vitamin c (ASCORBIC ACID) 500 MG Tablet Take by mouth. 1 daily Diclofenac Sodium [...] CHEW. Takes in evening) 90 Capsule 3 DULoxetine HCl 30 MG Oral Capsule Delayed Release Particles (Cymbalta) Take 1 Capsule by mouth in the morning. Take along with Duloxetine 60 mg daily, (total dose 90 mg )Do not cut, crush or chew. (Patient taking differently: Take 1 Capsule by mouth in the morning. Take along with Duloxetine 60 mg daily, (total dose 90 mg )Do not cut, crush or chew Takes in evening .) 30 Capsule 5 metFORMIN HCl ER 500 MG Oral Tablet [...] Tablet by mouth daily. 90 Tablet 1 FreeStyle French 3 [place] Device Use as directed. 1 Each 0 FreeStyle French 3 Sensor Use as directed. 1 Each 0 Levothyroxine Sodium 25 MCG Oral Tablet (Levoxyl) 2 pills once daily Friday to and take one oull Friday to Friday.(at least 30 min prior to breakfast or other meds) 90 Tablet 3 No current facility-administered medications for this visit. The patient's medication list was reviewed and updated as needed. Review of patient's allergies indicates: Allergen Reactions Advil [Ibuprofen] Alendronate Sodium Celecoxib Nausea/vomiting Cheese Cheddar Type [Cheese Flavor] Monosodium Glutamate Penicillin G Salicylates Unknown Sulfa Antibiotics Past Medical History: Diagnosis Date DDD (degenerative disc disease), lumbosacral Diabetes type 2, controlled ([facility]) Generalized OA Glaucoma Hypothyroidism Senile osteoporosis Social History Socioeconomic History Marital status: Number of children: 4 Tobacco Use Smoking status: Never Smokeless tobacco: Never Vaping Use Vaping status: Never Used Substance and Sexual Activity Alcohol use: No Drug use: No Social Determinants of Health Food Insecurity: No Food Insecurity (01/14/2023) Hunger Vital Sign Worried About Running Out of Food in the Last Year: Never true Ran Out of Food in the Last Year: Never true Family History Problem Relation Name Age of Onset Arthritis Father Heart Disorder Father Other (osteoporosis) Mother All system negative except as per hpi. OBJECTIVE: BP 124/58 | Pulse 97 | Temp 36.7 C (98 F) (Tympanic) | Wt 45.8 kg (101 lb) | SpO2 96% | BMI 25.28 kg/m | BSA 1.31 m PHYSICAL EXAM: HEENT: PERRLA, EOMI, anicteric sclera, b/l tympanic [...] Gait normal. Mood stable No focal weakness ASSESSMENT AND PLAN: DM type 2, goal HbA1c < 7% ([facility]) (Primary) Continue metformin. Start low dose of glipizide. If needed, may consider low dose of Trulicity. Defer endocrine consult after discussion with her today. Acquired hypothyroidism - Levothyroxine Sodium 25 MCG Oral Tablet (Levoxyl); 2 pills once daily Friday to and takeone oull Friday to Friday.(at least 30 min prior to breakfast or other meds) SIADH (syndrome of inappropriate ADH production) ([facility]) Fluid restriction continue. Generalized OA On Cymbalta. Stable. Senile osteoporosis Fall precautions advised. On reclast yrly. Follow Up: Return in about 3 months (around 06/17/2024) for Return with Physician. | For: Return with Physician Tabitha Hall MD documented in this encounter Nursing Notes * Destiney Bernal, MED ASSIST - 03/17/2024 11:18 AM EDT Chief Complaint Patient presents with Follow Up 6 month follow up. Only concerns are high blood sugars. Pt is no longer driving anymore. documented in this encounter Plan of Treatment Upcoming Encounters Date Type Department Care Team (Late st Contact Info) Description 03/24/2024 9:10 AM EDT Telemedicine Pharmacy, [facility] [address] [place] [address] Pharmacist1, [facility] [address] [place] [address] 05/04/2024 11:00 AM EDT Office Visit General Internal Medicine [facility] [place] [address] [place] [address] Tabitha Hall MD [address] [place] [address] 06/28/2024 2:20 PM EDT Office Visit Neurology [facility] [place] [address] [place] [address] Alvin Aragon MD [address] [place] [address] 06/29/2024 9:20 AM EDT Office Visit General Internal Medicine [facility] [place] [address] [place] [address] Tabitha Hall MD [address] [place] [address] 08/18/2024 10:00 AM EST Imaging Radiology, [address] [place] [address] 08/18/2024 10:40 AM EST Office Visit Rheumatology [address] [place] [address] Agustin Erickson MD [address] [place] [address] [place] [address] Health Maintenance Due Date Last Done Comments COVID-19 Vaccine (2022-24 season) 2023 02/21/2023, 06/17/2022, 01/22/2022, Additional history [...] D LEVEL ONCE IN A LIFETIME-USE SMARTSET# [id number] Completed 06/12/2023, 10/24/2021, 08/17/2020, Additional history exists [...] of this encounter Visit Diagnoses Diagnosis DM type 2, goal HbA1c < 7% (HCC)- Primary Acquired hypothyroidism Unspecified hypothyroidism SIADH (syndrome of inappropriate ADH production) (HCC) Other disorders of neurohypophysis Generalized OA Generalized osteoarthrosis, unspecified site Senile osteoporosis documented in this encounter Advance Directives Documents on File Type Date Recorded Patient 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
--- OUTSIDE RECORDS SUMMARY | 2024-06-30 23:33 | External Medical Summary | Summary of Care ---
Author Name Unknown Organization [facility] Address [address] [place] [address] Phone [phone] Care Team Providers Care Water Quality Tester Name Role Phone Tabitha Hall MD Primary Care Provider + Reason for Referral * Evaluate & Treat - Unlimited Visits (Within 10 days (routine)) - Pending Review Specialty Diagnoses / Procedures Referred By Michael awad Referred To Contact Pharmacist / Pharmacy Diagnoses Controlled type 2 diabetes mellitus with hyperglycemia, without long-term current use of insulin ([facility]) Tabitha Hall MD [address] [place] [address] Referral ID Status Reason Start Date Expiration Date Visits Requested Visits Authorized [id number] Pending Review Specialty Services Required 03/04/2024 99 99 Question Answer Referral Priority Within 10 days (routine) Where should this appointment be scheduled? [facility] Referring Provider Role: Primary Care Reason for Referral: DM Target A1c: < 7 Comments Pharmacist Medication Therapy Management: Minimum frequency patient should be seen in person for medication management: as appropriate per clinical condition and patient status By my signature, I understand that my patient Lilibeth Kong will have her medication therapy managed by the [facility] Medication Therapy Disease Management Clinic ([facility]) per established policies, procedures, and protocols. I also certify that this referral may serve as an initiation of service for the management of drug therapy in the above noted patient. [facility] providers will be responsible for scheduling patient visits, obtaining appropriate laboratory studies, and adjusting medication management therapy per patient's need, in addition to those roles spelled out in the clinic policy, procedures, and drug management protocols. I understand that the service provided by the [facility] is voluntary and have informed patient that they can refuse the service at their discretion. I am aware that the [facility] Clinic will provide me with a copy of the patient encounter via my [email or web address]. I authorize the [facility] to carry out these activities on my behalf. I consider this program to be a necessary part of the patient's medical care. Tabitha Hall MD Reason for Visit * Reason Onset Date Comments Advice 03/04/2024 Encounter Details Date Type Department Care Team (Late st Contact Info) Description 03/04/2024 Telephone General Internal Medicine [facility] [place] [address] [place] [address] Tabitha Hall MD [address] [place] [address] Advice Allergies Active Allergy Reactions Criticality Noted Date Comments Ibuprofen 06/11/2016 Alendronate Sodium 08/13/2016 Celecoxib Nausea/vomiting 12/22/2013 Cheese Flavor 08/27/2013 Monosodium Glutamate 08/13/2016 Penicillin G 06/11/2016 Salicylates Unknown 05/17/2021 Sulfa Antibiotics 06/11/2016 documented as of this encounter (statuses as of 03/05/2024) Medications Medication Sig Dispensed Refills Start Date [...] without long-term current use of insulin ([facility]) Check Blood sugars once daily. 1 Kit 07/12/2022 Active Additional Information Patient not taking.Reported on 10/20/2023 OneTouch Verio In Vitro Strip (Glucose Blood)Indications:Co ntrolled type 2 diabetes mellitus with hyperglycemia, without long-term current use of insulin ([facility]) Check Blood sugars once daily. 100 Strip 3 07/12/2022 Active Additional Information Patient not taking.Reported on 10/20/2023 OneTouch Delica Lancets 33GIndications:Contr olled type 2 diabetes mellitus with hyperglycemia, without long-term current use of insulin ([facility]) Check Blood sugars once daily. 100 Each 3 07/12/2022 Active Additional Information Patient not taking.Reported on 10/20/2023 OneTouch Delica Lancing DevIndications:Contr olled type 2 diabetes mellitus with hyperglycemia, without long-term current use of insulin ([facility]) Check Blood sugars once daily. 1 Each 07/12/2022 Active Additional Information Patient not taking.Reported on 10/20/2023 BD Insulin Syringe 25G X 5/8" 1 ML (Insulin Syringe-Needle U-100)Indications:Co ntrolled type 2 diabetes mellitus with hyperglycemia, without long-term current use of insulin ([facility]),Type 2 diabetes mellitus with hemoglobin A1c goal of less than 8.0% ([facility]) Use to inject B-12 injection once a [...] Tablet 1 02/11/2024 Active FreeStyle French 3 [place] DeviceIndications:Co ntrolled type 2 diabetes mellitus with hyperglycemia, without long-term current use of insulin (HCC) Use as directed. 1 Each 02/25/2024 Active FreeStyle French 3 SensorIndications:Co ntrolled type 2 diabetes mellitus with hyperglycemia, without long-term current use of insulin (HCC) Use as directed. 1 Each 02/25/2024 Active documented as of this encounter (statuses as of 03/05/2024) Active Problems Problem Noted Date Diagnosed Date [...] as of this encounter (statuses as of 03/05/2024) Immunizations Name Administration Dates Next Due COVID-19 [...] Telephone Encounter - Yunior Phillips RPh - 03/04/2024 4:12 PM EDT Patient Phone Numbers Awaiting lab results before making medication changes. Patient is on Metformin ER 500mg twice dailyonly. Results will be available 03/08. Yunior Blum. Jaron Sanchez, [facility] Clinical Pharmacist Medication Therapy Management Clinic 03/04/2024, 4:14 PM * Telephone Encounter - Tabitha Hall MD - 03/04/2024 11:49 AM EDT Noted. I am also in touch with pt's son Mata regards to her ER visit. For her high blood glucose, I did send French continuous glucose monitoring and they are checking it. Keep scheduled visit with me. Refer to [facility] pharmacy for further management. Please schedule. Will [...] 2 weeks. A week ago while in [facility] family took her to the ER [...] prior to appt about Bs control. Surekha [phone] * Telephone Encounter - Ana Cross OSA - 03/04/2024 11:07 AM EDT Surekha calling to inform that she is having a hard time controlling Lilibeth's blood sugar. She is wanting to know what she can do to control it in the meantime until her appt with Dr. Hall on 03/17. Transferring to [facility] nurses for advice documented in this encounter Plan of Treatment Upcoming Encounters Date Type Department Care Team (Late st Contact Info) Description 03/08/2024 5:30 PM EDT [facility] [address] [place] [address] Pharmacist1, [facility] 200 [facility] [place] [address] 03/11/2024 11:20 AM EDT Office Visit General Internal Medicine [facility] 200 [facility] [place], [place] [address] Tabitha Hall MD 200 [facility] [place] [address] 03/17/2024 10:30 AM EDT Office Visit Pharmacy, [facility] 200 [facility] [place] [address] Pharmacist1, [facility] 200 [facility] [place] [address] 06/28/2024 2:20 PM EDT Office Visit Neurology [facility] 200 [facility] [place] [address] Alvin Aragon MD 200 [facility] [place] [address] 08/18/2024 10:00 AM EST Imaging Radiology, [address] [place] [address] 08/18/2024 10:40 AM EST Office Visit Rheumatology [address] [place], [place] [address] Agustin Erickson MD [address] [place] [address] [place], [place] [address] Scheduled Referrals Name Type Priority Associated Diagnoses [...] 04/05, 01/14/2023, Additional history exists Albumin/Creatinine Ratio 01/15/202403/05/2 024, 01/14/2023, 04/15/2022, Additional history exists Diabetic Foot Exam 01/15/2024 [...] D LEVEL ONCE IN A LIFETIME-USE SMARTSET# [id number] Completed 06/12/2023, 10/24/2021, 08/17/2020, Additional history exists [...] Documents on File Type Date Recorded Patient Front Desk Representative Expl anation POLST 06/06/2021 POLST LIANNE REESE ORDERS FOR LIFE-SUSTAINING TREATMENT Care Teams Water Quality Tester Relationship Specialty Start Date End Date Tabitha Hall MD 200 [facility] [place], [place] [address] PCP - General Internal Medicine 07/27/20 documented as of this encounter
--- OUTSIDE RECORDS SUMMARY | 2024-06-30 23:33 | External Medical Summary | Summary of Care ---
Author Name Unknown Organization [facility] Address [address] [place] [address] Phone [phone] Care Team Providers Care Switchbox Assembler Name Role Phone Tabitha Hall MD Primary Care Provider + Encounter Details Date Type Department Care Team (Late st Contact Info) Description 04/16/2024 Orders Only General Internal Medicine [facility] [place] [address] [place] [address] Tabitha Hall MD 200 [facility] [address] Allergies Active Allergy Reactions Criticality Noted Date Comments Ibuprofen 06/11/2016 Alendronate Sodium 08/13/2016 Celecoxib Nausea/vomiting 12/22/2013 Cheese Flavor 08/27/2013 Monosodium Glutamate 08/13/2016 Penicillin G 06/11/2016 Salicylates Unknown 05/17/2021 Sulfa Antibiotics 06/11/2016 documented as of this encounter (statuses as of 04/16/2024) Medications Medication Sig Dispensed Refills Start Date [...] without long-term current use of insulin ([facility]),Type 2 diabetes mellitus with hemoglobin A1c goal of less than 8.0% ([facility]) Use to inject B-12 injection once [...] Tablet 1 03/17/2024 Active FreeStyle French 3 [place] DeviceIndications:DM (diabetes mellitus), type 2, uncontrolled, with [...] without long-term current use of insulin ([facility]) Inject 0.75 mg under the skin once a week. 2 mL 11 04/12/2024 Active documented as of this encounter (statuses as of 04/16/2024) Active Problems Problem Noted Date Diagnosed Date [...] as of this encounter (statuses as of 04/16/2024) Immunizations Name Administration Dates Next Due COVID-19 [...] [place] [address] [place] [address] Tabitha Hall MD [address] [place] [address] 06/28/2024 2:20 PM EDT Office Visit Neurology [facility] 200 [facility] [place], [place] [address] Alvin Aragon MD 200 [facility] [place], [place] [address] 06/29/2024 8:50 AM EDT Office Visit Pharmacy, [facility] 200 [facility] [place] [address] Pharmacist1, [facility] 200 [facility] [address] [place], [place] [address] 06/29/2024 9:20 AM EDT Office Visit General Internal Medicine [facility] 200 [facility] [place], [place] [address] Tabitha Hall MD 200 [facility] [place], [place] [address] 08/18/2024 10:00 AM EST Imaging Radiology, [address] [place] [address] 08/18/2024 10:40 AM EST Office Visit Rheumatology [address] [place], [place] [address] Agustin Erickson MD [address] [place] [address] [place], [place] [address] Health Maintenance Due Date Last Done Comments [...] 01/14/2023, Additional history exists Diabetic Eye Exam 04/16/2025 04/14/2024, , 01/25/2021, Additional history exists DTaP,Tdap,and Td Vaccines (3 - Td or Tdap) 06/27/2033 06/27/2023, 06/03/2012 Zoster Vaccines Completed 07/01/2019, 03/06, 10/06/2009 Pneumococcal Vaccine: 65+ Years Completed 06/07/2021, 01/07/2018, 03/21/2015 VITAMIN D LEVEL ONCE IN A LIFETIME-USE SMARTSET# [id number] Completed 06/12/2023, 10/24/2021, 08/17/2020, Additional history exists [...] Procedure Name Priority Date/Time Associated Diagnosis Comments DIABETIC EYE EXAM Routine 04/14/2024 documented in this encounter Results * DIABETIC EYE EXAM (04/14/2024) 04/14/2024 History Per Patient OTHER OUTSIDE LAB (SEE SCANNED REPORT) documented in this encounter Advance Directives Documents on File Type Date Recorded Patient Polisher Dial Expl anation POLST 06/06/2021 POLST ISHA HUGH ORDERS FOR LIFE-SUSTAINING TREATMENT Care Teams Switchbox Assembler Relationship Specialty Start Date End Date Tabitha Hall MD 200 [facility] [place] [address] PCP - General Internal Medicine 07/27/20 documented as of this encounter
--- OUTSIDE RECORDS SUMMARY | 2024-06-30 23:33 | External Medical Summary | Summary of Care ---
Author Name Unknown Organization [facility] Address [address] [place] [address] Phone [phone] Care Team Providers Care Telemarketing Agent Name Role Phone Tabitha Hall MD Primary Care Provider + Reason for Visit * Reason Onset Date Comments Advice 01/19/2024 Encounter Details Date Type Department Care Team (Late st Contact Info) Description 01/19/2024 Telephone General Internal Medicine [facility] 200 [facility] [place] [address] Tabitha Hall MD 200 [place] [address] Advice Allergies Active Allergy Reactions Criticality Noted Date Comments Ibuprofen 06/11/2016 Alendronate Sodium 08/13/2016 Celecoxib Nausea/vomiting 12/22/2013 Cheese Flavor 08/27/2013 Monosodium Glutamate 08/13/2016 Penicillin G 06/11/2016 Salicylates Unknown 05/17/2021 Sulfa Antibiotics 06/11/2016 documented as of this encounter (statuses as of 04/19/2024) Medications Medication Sig Dispensed Refills Start Date [...] current use of insulin ([facility]),Type 2 diabetes mellitus with hemoglobin A1c goal [...] injections monthly. 100 Each 5 01/12/2024 Active documented as of this encounter (statuses as of 04/19/2024) Active Problems Problem Noted Date Diagnosed Date [...] as of this encounter (statuses as of 04/19/2024) Immunizations Name Administration Dates Next Due COVID-19 [...] encounter Miscellaneous Notes * Telephone Encounter - Laura Santizo LPN - 01/21/2024 12:21 PM EDT Surekha returning calling. Informed of message. She verbalized understanding Pt is currently participating in physical therapy but had recent falls. She is also having issues with her memory. Pt will only see Dr Hall. Scheduled appt on 01/26 at 2pm. * Telephone Encounter - Harvey Marino MD - 01/19/2024 11:[address] Hall is away, suggest f/u another physician or mid level while she is away. Are there specificquestions? * Telephone Encounter - Bubba Ruiz OSA - 01/19/2024 10:26 AM EDT Surekha called in on behalf of the patient stating they have been messaging on my [facility] regarding a fall the patient had. Surekha was trying to schedule an appointment but pcp doesn't have any available til March 31 which is too far. Please follow up with Surekha.Thank you. No Appointments Available Patient declined appointments?: Yes What Visit Type is needed? Return If Acute Visit Type is needed, were surrounding clinics offered to patient (Yes/No)? No, explain Patient wants to meet with pcp Was patient offered appointments with other available providers (Yes/No)? NO patient wants to see her pcp documented in this encounter Plan of Treatment Upcoming Encounters Date Type Department Care Team (Late st Contact Info) Description 05/04/2024 11:00 AM EDT Office Visit General Internal Medicine [place] [facility] [address] [place] [address] Tabitha Hall MD [address] [place] [address] 06/28/2024 2:20 PM EDT Office Visit Neurology [facility] 200 [facility] [place] [address] Alvin Aragon MD 200 [facility] [place], [place] [address] 06/29/2024 8:50 AM EDT Office Visit Pharmacy, [facility] 200 [facility] [place] [address] Pharmacist1, [facility] 200 [facility] [place], [place] [address] 06/29/2024 9:20 AM EDT Office Visit General Internal Medicine [facility] 200 [facility] [place], [place] [address] Tabitha Hall MD 200 [facility] [place], [place] [address] 08/18/2024 10:00 AM EST Imaging Radiology, [address] [place], [place] [address] 08/18/2024 10:40 AM EST Office Visit Rheumatology [address] [place], [place] [address] Agustin Erickson MD [address] [place] [address] [place], [place] [address] Health Maintenance Due Date Last Done Comments [...] D LEVEL ONCE IN A LIFETIME-USE SMARTSET# [id number] Completed 06/12/2023, 10/24/2021, 08/17/2020, Additional history exists [...] Documents on File Type Date Recorded Patient Model Maker Plaster Expl anation POLST 06/06/2021 ANTOINETTE REESE ORDERS FOR LIFE-SUSTAINING TREATMENT Care Teams Telemarketing Agent Relationship Specialty Start Date End Date Tabitha Hall MD 200 [facility] [place] [address] PCP - General Internal Medicine 07/27/20 documented as of this encounter
--- OUTSIDE RECORDS SUMMARY | 2024-06-30 23:33 | External Medical Summary | Summary of Care ---
Author Name Unknown Organization [facility] Address [address] [place] [address] Phone [phone] Care Team Providers Care Inbound Sales Consultant Name Role Phone Tabitha Hall MD Primary Care Provider + Reason for Visit * Reason Comments Outpatient Testing Encounter Details Date Type Department Care Team (Late st Contact Info) Description 03/05/2024 8:30 AM EDT Laboratory [facility] [place] [address] [place] [address] [place], [facility]en[facility] [address] [place] [address] Controlled type 2 diabetes mellitus with hyperglycemia, without long-term current use of insulin ([facility]); Hyperlipidemia with target LDL less than 100; Acquired hypothyroidism Allergies Active Allergy Reactions Criticality Noted Date [...] hyperglycemia, without long-term current use of insulin ([facility]) Check Blood sugars once daily. 1 Kit 07/12/2022 Active Additional Information Patient not taking.Reported on 10/20/2023 OneTouch Verio In Vitro Strip (Glucose Blood)Indications:Co ntrolled type 2 diabetes mellitus with hyperglycemia, without long-term current use of insulin ([facility]) Check Blood sugars once daily. 100 Strip 3 07/12/2022 Active Additional Information Patient not taking.Reported on 10/20/2023 OneTouch Delica Lancets 33GIndications:Contr olled type 2 diabetes mellitus with hyperglycemia, without long-term current use of insulin ([facility]) Check Blood sugars once daily. 100 Each 3 07/12/2022 Active Additional Information Patient not taking.Reported on 10/20/2023 OneTouch Delica Lancing DevIndications:Contr olled type 2 diabetes mellitus with hyperglycemia, without long-term current use of insulin ([facility]) Check Blood sugars once daily. 1 Each 07/12/2022 Active Additional Information Patient not taking.Reported on 10/20/2023 BD Insulin Syringe 25G X 5/8" 1 ML (Insulin Syringe-Needle U-100)Indications:Co ntrolled type 2 diabetes mellitus with hyperglycemia, without long-term current use of insulin ([facility]),Type 2 diabetes mellitus with hemoglobin A1c goal of less than 8.0% ([facility]) Use to inject B-12 injection [...] Tablet 1 02/11/2024 Active FreeStyle French 3 [place] DeviceIndications:Co ntrolled type 2 diabetes mellitus with [...] Care Team (Late st Contact Info) Description 03/11/2024 11:20 AM EDT Office Visit General Internal Medicine [place] [address] [place] [address] Tabitha aHll MD [address] [place] [address] 03/17/2024 10:30 AM EDT Office Visit Pharmacy, [place] [facility] [address] [place] [address] [address] Pharmacist1, [facility] [address] [place] [address] [address] 06/28/2024 2:20 PM EDT Office Visit Neurology [place] [address] [place] [address] Alvin [place]agon MD [address] [place] [address] 08/18/2024 10:00 AM EST Imaging Radiology, [address] [place] [address] 08/18/2024 10:40 AM EST Office Visit Rheumatology [address] [place] [address] Agustin Erickson MD [address] [place] [address] [place] [address] Pending Results Name Type Priority Associated Diagnoses Date /Time HEMOGLOBIN A1C Lab Routine Controlled type 2 diabetes mellitus with hyperglycemia, without long-term current use of insulin ([facility]) 03/05/2024 8:29 AM EDT COMPREHENSIVE METABOLIC PANEL Lab Routine Controlled type 2 diabetes mellitus with hyperglycemia, without long-term current use of insulin ([facility]) 03/05/2024 8:29 AM EDT LDL CHOLESTEROL (DIRECT MEASURE) Lab Routine Hyperlipidemia with target LDL less than 100 03/05/2024 8:29 AM EDT TSH Lab Routine Acquired hypothyroidism 03/05/2024 8:29 AM EDT ALBUMIN / CREATININE RATIO, URINE Lab Routine Controlled type 2 diabetes mellitus with hyperglycemia, without long-term current use of insulin ([facility]) 03/05/2024 8:32 AM EDT Health Maintenance Due Date Last Done Comments COVID-19 Vaccine ( season) 2023 02/21/2023, 06/17/2022, 01/22/2022, Additional history exists HbA1c 12/11/2023 06/12/2023, 04/05, 01/14/2023, Additional history exists Albumin/Creatinine Ratio 01/15/2024 023, 04/15/2022, 11/14/2020 Diabetic Foot Exam 01/15/2024 01/14/2023, 0 06/07/2021, [...] D LEVEL ONCE IN A LIFETIME-USE SMARTSET# [id number] Completed 06/12/2023, 10/24/2021, 08/17/2020, Additional history exists [...] without long-term current use of insulin ([facility]) Hyperlipidemia with target LDL less than 100 Other and unspecified hyperlipidemia Acquired hypothyroidism Unspecified hypothyroidism documented in this encounter Advance Directives Documents on File Type Date Recorded Patient Perinatal Coordinator Expl anation POLST 06/06/2021 ANTOINETTE REESE ORDERS FOR LIFE-SUSTAINING TREATMENT Care Teams Inbound Sales Consultant Relationship Specialty Start Date End Date Tabitha Hall MD [address] [place] [address] PCP - General Internal Medicine 07/27/20 documented as of this encounter
--- OUTSIDE RECORDS SUMMARY | 2024-06-30 23:33 | External Medical Summary | Summary of Care ---
Author Name Unknown Organization [facility] Address [address] [place] [address] Phone [phone] Care Team Providers Care Fish Seiner Name Role Phone Tabitha Hall MD Primary Care Provider + Reason for Referral * Evaluate & Treat - Unlimited Visits (Within 10 days (routine)) - Pending Review Specialty Diagnoses / Procedures Referred By Michael awad Referred To Contact Pharmacist / Pharmacy Diagnoses Controlled type 2 diabetes mellitus with hyperglycemia, without long-term current use of insulin ([facility]) Tabitha Hall MD [address] [place] [address] Referral ID Status Reason Start Date Expiration Date Visits Requested Visits Authorized [id number] Pending Review Specialty Services Required 03/04/2024 99 99 Question Answer Referral Priority Within 10 days (routine) Where should this appointment be scheduled? [facility] Referring Provider Role: Primary Care Reason for Referral: DM Target A1c: < 7 Comments Pharmacist Medication Therapy Management: Minimum frequency patient should be seen in person for medication management: as appropriate per clinical condition and patient status By my signature, I understand that my patient Lilibeth Kong will have her medication therapy managed by the [facility] Medication Therapy Disease Management Clinic ([facility]) per established policies, procedures, and protocols. I also certify that this referral may serve as an initiation of service for the management of drug therapy in the above noted patient. [facility] providers will be responsible for scheduling [...] their discretion. I am aware that the [facility] Clinic will provide me with a copy of the patient encounter via my [facility] [employer]. I authorize the [facility] to carry out these activities on my behalf. I consider this program to be a necessary part of the patient's medical care. Tabitha Hall MD Reason for Visit * Reason Onset Date Comments Advice 03/04/2024 Encounter Details Date Type Department Care Team (Late st Contact Info) Description 03/04/2024 Telephone General Internal Medicine [facility] [place] [address] [place] [address] Tabitha Hall MD [address] [place] [address] Advice Allergies Active Allergy Reactions Criticality Noted [...] Tablet 1 02/11/2024 Active FreeStyle French 3 [place] DeviceIndications:Co ntrolled type 2 diabetes mellitus with [...] at 11am on 03/17/24 after she sees [facility] pharmacy at 10:30am. Her sugars are very high and I was supposed to see her today but I had to cancel all my patients today. Also inform her caregiver Surekha about new change in her appointment with me. Thanks. * Telephone Encounter - Yunior Phillips RPh - 03/04/2024 4:12 PM EDT Patient Phone Numbers Awaiting lab results before making medication changes. Patient is on Metformin ER 500mg twice dailyonly. Results will be available 03/08. Yunior Sanchez RPh, [facility] Clinical Pharmacist Medication Therapy Management Clinic 03/04/2024, 4:14 PM * Telephone Encounter - Tabitha Hall MD - 03/04/2024 11:49 AM EDT Noted. I am also in touch with pt's son Mata regards to her ER visit. For her high blood glucose, I did send French continuous glucose monitoring and they are checking it. Keep scheduled visit with me. Refer to [facility] pharmacy for further management. Please [...] 2 weeks. A week ago while in [facility] family took her to the ER [...] prior to appt about Bs control. Surekha [phone] * Telephone Encounter - Ana Cross OSA - 03/04/2024 11:07 AM EDT Surekha calling to inform that she is having a hard time controlling Lilibeth's blood sugar. She is wanting to know what she can do to control it in the meantime until her appt with Dr. Hall on 03/17. Transferring to [facility], dedicated nurses for advice documented in this encounter Plan of Treatment Upcoming Encounters Date Type Department Care Team (Late st Contact Info) Description 03/17/2024 10:30 AM EDT Office Visit Pharmacy, [facility] [place] [address] [facility] [place] [address] Pharmacist1, [facility] 200 [facility] [place] [address] 05/04/2024 11:00 AM EDT Office Visit General Internal Medicine [facility] 200 [facility] [place] [address] Tabitha Hall MD [address] [facility] [address] [place] [address] 06/28/2024 2:20 PM EDT Office Visit Neurology [facility] 200 [facility] [place] [address] Alvin [place] MD 200 [facility] [place] [address] 08/18/2024 10:00 AM EST Imaging Radiology, [address] [place] [address] 08/18/2024 10:40 AM EST Office Visit Rheumatology [address] [place] [address] Agustin Erickson MD [address] [place] [address] [place] [address] Scheduled Referrals Name Type Priority Associated Diagnoses [...] D LEVEL ONCE IN A LIFETIME-USE SMARTSET# [id number] Completed 06/12/2023, 10/24/2021, 08/17/2020, Additional history exists [...] Documents on File Type Date Recorded Patient Market Consultant Expl anation POLST 06/06/2021 POLST LIANNE REESE ORDERS FOR LIFE-SUSTAINING TREATMENT Care Teams Fish Seiner Relationship Specialty Start Date End Date Tabitha Hall MD [address] [place] [address] PCP - General Internal Medicine 07/27/20 documented as of this encounter
--- OUTSIDE RECORDS SUMMARY | 2024-06-30 23:33 | External Medical Summary | Summary of Care ---
Author Name Unknown Organization [facility] Address [address] [place] [address] Phone [phone] Care Team Providers Care Gluing Machine Offbearer Name Role Phone Tabitha Hall MD Primary Care Provider + Reason for Referral * Evaluate & Treat - Unlimited Visits (Within 10 days (routine)) - Pending Review Specialty Diagnoses / Procedures Referred By Michael awad Referred To Contact Pharmacist / Pharmacy Diagnoses Controlled type 2 diabetes mellitus with hyperglycemia, without long-term current use of insulin ([facility]) Tabitha Hall MD [address] [place] [address] Referral ID Status Reason Start Date Expiration Date Visits Requested Visits Authorized [id number] Pending Review Specialty Services Required 03/04/2024 99 99 Question Answer Referral Priority Within 10 days (routine) Where should this appointment be scheduled? [facility] Referring Provider Role: Primary Care Reason for Referral: DM Target A1c: < 7 Comments Pharmacist Medication Therapy Management: Minimum frequency patient should be seen in person for medication management: as appropriate per clinical condition and patient status By my signature, I understand that my patient Lilibeth Kong will have her medication therapy managed by the [facility] Medication Therapy Disease Management [facility] ([facility]) per established policies, procedures, and protocols. I also certify that this referral may serve as an initiation of service for the management of drug therapy in the above noted patient. [facility] providers will be responsible for scheduling patient visits, obtaining appropriate laboratory studies, and adjusting medication management therapy per patient's need, in addition to those roles spelled out in the clinic policy, procedures, and drug management protocols. I understand that the service provided by the [facility] is voluntary and have informed patient that they can refuse the service at their discretion. I am aware that the [facility] Clinic will provide me with a copy of the patient encounter via my [employer] InSecret Recipe. I authorize the [facility] to carry out these activities on my behalf. I consider this program to be a necessary part of the patient's medical care. Tabitha Hall MD Reason for Visit * Reason Onset Date Comments Advice 03/04/2024 Encounter Details Date Type Department Care Team (Late st Contact Info) Description 03/04/2024 Telephone General Internal Medicine [facility] [place] [address] [place] [address] Tabitha Hall MD [address] [place] [address] Advice Allergies Active Allergy Reactions Criticality Noted [...] long-term current use of insulin ([facility]) Check Blood sugars once daily. 1 Kit 07/12/2022 Active Additional Information Patient not taking.Reported on 10/20/2023 OneTouch Verio In Vitro Strip (Glucose Blood)Indications:Co ntrolled type 2 diabetes mellitus with hyperglycemia, without long-term current use of insulin ([facility]) Check Blood sugars once daily. 100 Strip 3 07/12/2022 Active Additional Information Patient not taking.Reported on 10/20/2023 OneTouch Delica Lancets 33GIndications:Contr olled type 2 diabetes mellitus with hyperglycemia, without long-term current use of insulin ([facility]) Check Blood sugars once daily. 100 Each 3 07/12/2022 Active Additional Information Patient not taking.Reported on 10/20/2023 OneTouch Delica Lancing DevIndications:Contr olled type 2 diabetes mellitus with hyperglycemia, without long-term current use of insulin ([facility]) Check Blood sugars once daily. 1 Each 07/12/2022 Active Additional Information Patient not taking.Reported on 10/20/2023 BD Insulin Syringe 25G X 5/8" 1 ML (Insulin Syringe-Needle U-100)Indications:Co ntrolled type 2 diabetes mellitus with hyperglycemia, without long-term current use of insulin ([facility]),Type 2 diabetes mellitus with hemoglobin A1c goal of less than 8.0% ([facility]) Use to inject B-12 injection once [...] Tablet 1 02/11/2024 Active FreeStyle French 3 [place] DeviceIndications:Co ntrolled type 2 diabetes mellitus with [...] at 11am on 03/17/24 after she sees [facility] pharmacy at 10:30am. Her sugars are very [...] will be available 03/08. Yunior Sanchez RPh, [facility] Clinical Pharmacist Medication Therapy Management Clinic 03/04/2024, 4:14 PM * Telephone Encounter - Tabitha Hall MD - 03/04/2024 11:49 AM EDT Noted. I am also in touch with pt's son Mata regards to her ER visit. For her high blood glucose, I did send French continuous glucose monitoring and they are checking it. Keep scheduled visit with me. Refer to [facility] pharmacy for further management. Please schedule. [...] 2 weeks. A week ago while in [facility] family took her to the ER [...] prior to appt about Bs control. Surekha [phone] * Telephone Encounter - Ana Cross OSA - 03/04/2024 11:07 AM EDT Surekha calling to inform that she is having a hard time controlling Lilibeth's blood sugar. She is wanting to know what she can do to control it in the meantime until her appt with Dr. Hall on 03/17. Transferring to [facility], dedicated nurses for advice documented in this encounter Plan of Treatment Upcoming Encounters Date Type Department Care Team (Late st Contact Info) Description 03/17/2024 10:30 AM EDT Office Visit Pharmacy, [facility] [place] [address] [facility] [place] [address] Pharmacist1, [facility] 200 [facility] [place] [address] 05/04/2024 11:00 AM EDT Office Visit General Internal Medicine [facility] [address] [facility] [place] [address] Tabitha Hall MD [address] [facility] [address] [facility] [place] [address] 06/28/2024 2:20 PM EDT Office Visit Neurology [facility] [address] [facility] [place] [address] Alvin Aragon MD [address] [facility] [place] [address] 08/18/2024 10:00 AM EST Imaging Radiology, [address] [place] [address] 08/18/2024 10:40 AM EST Office Visit Rheumatology [address] [place] [address] Agustin Erickson MD [address] [place] [address] [place] [address] Scheduled Referrals Name Type Priority Associated Diagnoses [...] D LEVEL ONCE IN A LIFETIME-USE SMARTSET# [id number] Completed 06/12/2023, 10/24/2021, 08/17/2020, Additional history exists [...] Documents on File Type Date Recorded Patient Planning Engineer Expl anation POLST 06/06/2021 POLST LIANNE REESE ORDERS FOR LIFE-SUSTAINING TREATMENT Care Teams Gluing Machine Offbearer Relationship Specialty Start Date End Date Tabitha Hall MD [address] [place] [address] PCP - General Internal Medicine 07/27/20 documented as of this encounter
--- OUTSIDE RECORDS SUMMARY | 2024-06-30 23:34 | External Medical Summary ---
Author Name Unknown Address Unknown Organization K09:[facility] [address] [place] [address] Laboratory Report Ordering Provider Test Date Status LLOYD PERKINS 03/05/2024 08:29:31 Final Observation Date Value Abnormality Reference (Units ) Status BUN 03/05/2024 08:29:31 12 6-20 (mg/dL) Final Creatinine 03/05/2024 08:29:31 0.7 0.5-1.0 (mg/dL) Final Glomerular filtration rate/1.73 sq M.predicted [Volume Rate/Area] in Serum, Plasma or Blood by Creatinine-based formula (CKD-EPI) 03/05/2024 08:29:31 85 >=60 (mL/min) Final eGFR is calculated based on the CKD-EPI 2020 equation Sodium 03/05/2024 08:29:31 133 Below low normal 135 -146 (mmol/L) Final Potassium 03/05/2024 08:29:31 4.5 3.5-5.1 (m mol/L) Final Cl 03/05/2024 08:29:31 97 Below low normal 98- 107 (mmol/L) Final CO2 03/05/2024 08:29:31 23 22-32 (mmo l/L) Final Anion gap 03/05/2024 08:29:31 13 7-15 (mmol /L) Final Glucose 03/05/2024 08:29:31 247 Above high normal 70 -120 (mg/dL) Final Albumin 03/05/2024 08:29:31 4.4 3.8-5.0 (g /dL) Final AST (Aspartate aminotransferase) 03/05/2024 08:29:31 18 10-35 (U/L) Fin al Alk Phos 03/05/2024 08:29:31 73 35-130 (U/ L) Final Bilirubin, Total 03/05/2024 08:29:31 0.4 <=1 .2 (mg/dL) Final Calcium 03/05/2024 08:29:31 9.6 8.4-10.2 ( mg/dL) Final Protein 03/05/2024 08:29:31 6.9 6.0-8.3 (g /dL) Final ALT (Alanine aminotransferase) 03/05/2024 08:29:31 21 10-35 (U/L) [place] Performing Location [facility] [place] [address]
--- OUTSIDE RECORDS SUMMARY | 2024-06-30 23:34 | External Medical Summary | Summary of Care ---
Author Name Unknown Organization [facility] Address [address] [place] [address] Phone [phone] Care Team Providers Care Marine Diesel Mechanic Name Role Phone Tabitha Hall MD Primary Care Provider + Reason for Visit * Reason Onset Date Comments FYI 02/25/2024 Encounter Details Date Type Department Care Team (Late st Contact Info) Description 02/25/2024 Telephone General Internal Medicine [facility] 200 [facility] [place] [address] Tabitha Hall MD [address] [place] [address] FYI Allergies Active Allergy Reactions Criticality Noted Date Comments Ibuprofen 06/11/2016 Alendronate Sodium 08/13/2016 Celecoxib Nausea/vomiting 12/22/2013 Cheese Flavor 08/27/2013 Monosodium Glutamate 08/13/2016 Penicillin G 06/11/2016 Salicylates Unknown 05/17/2021 Sulfa Antibiotics 06/11/2016 documented as of this encounter (statuses as of 02/25/2024) Medications Medication Sig Dispensed Refills Start Date [...] morning. Takes at night Friday . Active ScripsAmericaTouch Verio Reflect w/Device KitIndications:Cont rolled type 2 diabetes mellitus with hyperglycemia, without long-term current use of insulin ([facility]) Check Blood sugars once daily. 1 Kit 07/12/2022 Active Additional Information Patient not taking.Reported on 10/20/2023 ScripsAmericaTouch Verio In Vitro Strip (Glucose Blood)Indications:C ontrolled type 2 diabetes mellitus with hyperglycemia, without long-term current use of insulin ([facility]) Check Blood sugars once daily. 100 Strip 3 07/12/2022 Active Additional Information Patient not taking.Reported on 10/20/2023 ScripsAmericaTouch Zenput Lancets 33GIndications:Cont rolled type 2 diabetes mellitus with hyperglycemia, without long-term current use of insulin ([facility]) Check Blood sugars once daily. 100 Each 3 07/12/2022 Active Additional Information Patient not taking.Reported on 10/20/2023 OneTouch Delica Lancing DevIndications:Cont rolled type 2 diabetes mellitus with hyperglycemia, without long-term current use of insulin ([facility]) Check Blood sugars once daily. 1 Each 07/12/2022 Active Additional Information Patient not taking.Reported on 10/20/2023 BD Insulin Syringe 25G X 5/8" 1 ML (Insulin Syringe-Needle U-100)Indications:C ontrolled type 2 diabetes mellitus with hyperglycemia, without long-term current use of insulin ([facility]),Type 2 diabetes mellitus with hemoglobin A1c goal of less than 8.0% ([facility]) Use to inject B-12 injection once a [...] Tablet 1 02/11/2024 Active FreeStyle French 3 [place] DeviceIndications:C ontrolled type 2 diabetes mellitus with hyperglycemia, without long-term current use of insulin ([facility]) Use as directed. 1 Each 02/25/2024 Active FreeStyle French 3 SensorIndications:C ontrolled type 2 diabetes mellitus with hyperglycemia, without long-term current use of insulin ([facility]) Use as directed. 1 Each 02/25/2024 Active FreeStyle French 14 Day [place] Device Use as directed. 1 Each 02/25/2024 4 Discontinu ed(Formula ry/Cost) FreeStyle French 14 Day Sensor Use as directed. 1 Each 02/25/2024 4 Discontinu ed(Formula ry/Cost) documented as of this encounter (statuses as of 02/25/2024) Active Problems Problem Noted Date Diagnosed Date [...] as of this encounter (statuses as of 02/25/2024) Immunizations Name Administration Dates Next Due COVID-19 [...] Telephone Encounter - Tabitha Hall MD - 02/25/2024 3:45 PM EDT Pt had to be taken to [place] ER for sugars >400. Family requesting scripts for Free style french 3. Sent. Notified. documented in this encounter Plan of Treatment Upcoming Encounters Date Type Department Care Team (Late st Contact Info) Description 03/05/2024 8:30 AM EDT Laboratory Laboratory [facility] [place] [address] [place] [address] Patito Fernandes [facility] [address] [facility] [address] [place] [address] 03/17/2024 9:40 AM EDT Office Visit General Internal Medicine [facility] [address] [place] [address] Tabitha Hall MD 200 [facility] [place] [address] 03/17/2024 10:30 AM EDT Office Visit Pharmacy, [facility] [address] [place] [address] Pharmacist1, [facility] [address] [facility] [place] [address] 06/28/2024 2:20 PM EDT Office Visit Neurology [facility] [address] [facility] [place] [address] Alvin Aragon MD [address] [facility] [place] [address] 08/18/2024 10:00 AM EST Imaging Radiology, [address] [place] [address] 08/18/2024 10:40 AM EST Office Visit Rheumatology [address] [place] [address] Agustin Erickson MD [address] [place] [address] [place] [address] Health Maintenance Due Date Last Done Comments [...] D LEVEL ONCE IN A LIFETIME-USE SMARTSET# [id number] Completed 06/12/2023, 10/24/2021, 08/17/2020, Additional history exists [...] Documents on File Type Date Recorded Patient Communication Arts Lecturer Expl anation POLST 06/06/2021 POLST LIANNE REESE ORDERS FOR LIFE-SUSTAINING TREATMENT Care Teams Marine Diesel Mechanic Relationship Specialty Start Date End Date Tabitha Hall MD [address] [facility] [place], [place] [address] PCP - General Internal Medicine 07/27/20 documented as of this encounter
--- OUTSIDE RECORDS SUMMARY | 2024-06-30 23:34 | External Medical Summary | Summary of Care ---
Author Name Unknown Organization [facility] Address [address] [place] [address] Phone [phone] Care Team Providers Care Financial Analysis Advisor Name Role Phone Tabitha Hall MD Primary Care Provider + Reason for Visit * Reason Onset Date Comments FYI 02/24/2024 Encounter Details Date Type Department Care Team (Late st Contact Info) Description 02/24/2024 Telephone General Internal Medicine [facility] 200 [facility] [place] [address] Tabitha Hall MD 200 [place] [address] FYI Allergies Active Allergy Reactions Criticality Noted Date Comments Ibuprofen 06/11/2016 Alendronate Sodium 08/13/2016 Celecoxib Nausea/vomiting 12/22/2013 Cheese Flavor 08/27/2013 Monosodium Glutamate 08/13/2016 Penicillin G 06/11/2016 Salicylates Unknown 05/17/2021 Sulfa Antibiotics 06/11/2016 documented as of this encounter (statuses as of 02/24/2024) Medications Medication Sig Dispensed Refills Start Date [...] long-term current use of insulin ([facility]) Check Blood sugars once daily. 1 Kit 07/12/2022 Active Additional Information Patient not taking.Reported on 10/20/2023 OneTouch Verio In Vitro Strip (Glucose Blood)Indications:Co ntrolled type 2 diabetes mellitus with hyperglycemia, without long-term current use of insulin ([facility]) Check Blood sugars once daily. 100 Strip 3 07/12/2022 Active Additional Information Patient not taking.Reported on 10/20/2023 Vestaron CorporationTouch Delica Lancets 33GIndications:Contr olled type 2 diabetes mellitus with hyperglycemia, without long-term current use of insulin ([facility]) Check Blood sugars once daily. 100 Each 3 07/12/2022 Active Additional Information Patient not taking.Reported on 10/20/2023 OneTouch Delica Lancing DevIndications:Contr olled type 2 diabetes mellitus with hyperglycemia, without long-term current use of insulin ([facility]) Check Blood sugars once daily. 1 Each 07/12/2022 Active Additional Information Patient not taking.Reported on 10/20/2023 BD Insulin Syringe 25G X 5/8" 1 ML (Insulin Syringe-Needle U-100)Indications:Co ntrolled type 2 diabetes mellitus with hyperglycemia, without long-term current use of insulin ([facility]),Type 2 diabetes mellitus with hemoglobin A1c goal of less than 8.0% ([facility]) Use to inject B-12 injection once [...] mouth daily. 90 Tablet 1 02/11/2024 Active documented as of this encounter (statuses as of 02/24/2024) Active Problems Problem Noted Date Diagnosed Date [...] as of this encounter (statuses as of 02/24/2024) Immunizations Name Administration Dates Next Due COVID-19 [...] Telephone Encounter - Tabitha Hall MD - 02/24/2024 5:07 PM EDT Spoke with patient's son Mata. Advised to go to ER. Family verbalized. * Telephone Encounter - Susi Riggs MED ASSIST - 02/24/2024 2:27 PM EDT Received a call from pt's son. Informed that pt did a finger stick and had a blood sugar over 500. Today the reading was over 300. Pt's son is wondering if Dr Hall has any advice as to where to go from here? He is currently visiting with his mom in [place] for the week Pt's son would like a call back at [phone] documented in this encounter Plan of Treatment Upcoming Encounters Date Type Department Care Team (Late st Contact Info) Description 03/05/2024 8:30 AM EDT Laboratory Laboratory [facility] [address] [place] [id number] Patito Fernandes [address] [facility] [place] [address] 03/17/2024 9:40 AM EDT Office Visit General Internal Medicine [facility] 200 [facility] [place], [place] [address] Tabitha Hall MD 200 [facility] [place], [place] [address] 03/17/2024 10:30 AM EDT Office Visit Pharmacy, [facility] 200 [facility] [place], [place] [address] Pharmacist1, [facility] 200 [facility] [place], [place] [address] 06/28/2024 2:20 PM EDT Office Visit Neurology [facility] [address] [facility] [place], [place] [address] Alvin Aragon MD 200 [place] [address] 08/18/2024 10:00 AM EST Imaging Radiology, [address] [place], [place] [address] 08/18/2024 10:40 AM EST Office Visit Rheumatology [address] [place] [address] Agustin Erickson MD [address] [place] [address] [place], [place] [address] Health Maintenance Due Date Last Done Comments [...] D LEVEL ONCE IN A LIFETIME-USE SMARTSET# [id number] Completed 06/12/2023, 10/24/2021, 08/17/2020, Additional history exists [...] Documents on File Type Date Recorded Patient Brand Marketing Manager Expl anation POLST 06/06/2021 POLST ISHA HUGH ORDERS FOR LIFE-SUSTAINING TREATMENT Care Teams Financial Analysis Advisor Relationship Specialty Start Date End Date Tabitha Hall MD [address] [place] [address] PCP - General Internal Medicine 07/27/20 documented as of this encounter
--- OUTSIDE RECORDS SUMMARY | 2024-06-30 23:34 | External Medical Summary ---
Author Name Unknown Address Unknown Organization K01:[facility] [place] [address] [place] [address] Laboratory Report Ordering Provider Test Date Status LLOYD PERKINS 03/05/2024 08:29:34 Final Observation Date Value Abnormality Reference (Units ) Status TSH 03/05/2024 08:29:34 5.89 Above high normal 0. 27-4.20 (uIU/mL) Final Performing Location [facility] - [address] [place] [address]
[2024-07-01] MEDS: LEVOTHYROXINE SODIUM 50 MCG TABLET PO SCH (05:24)
--- NOTE | 2024-07-01 06:25 | Electrocardiogram Report ---
Test Reason : Blood Pressure : */* mmHG Vent. Rate : 85 BPM Atrial Rate : 85 BPM P-R Int : 166 ms QRS Dur : 76 ms QT Int : 386 ms P-R-T Axes : 52 21 84 degrees QTcB Int : 459 ms Normal sinus rhythm Normal ECG When compared with ECG of 25-Sep-2023 11:52, No significant change was found Confirmed by Munir Ding ([id number]) on 07/01/2024 6:25:01 AM Referred By: Confirmed By: Munir Ding
[2024-07-01 08:07] LABS: Basophils # (auto) 0.06 K/uL (0.00-0.20); Basophils % (auto) 0.6 %; Eosinophils # (auto) 0.26 K/uL (0.00-0.50); Eosinophils % (auto) 2.6 %; Hematocrit (blood only) 34.2 % (37.0-47.0); Hemoglobin 11.5 g/dl (12.0-16.0); Immature Granulocytes # (auto) 0.03 K/uL (0.01-0.20); Immature Granulocytes % (auto) 0.3 %; Lymphocytes # (auto) 1.78 K/uL (1.20-3.40); Lymphocytes % (auto) 17.8 %; Mean Corpuscular Hemoglobin 27.3 pg (25.0-34.0); Mean Corpuscular Hgb Conc 33.6 g/dL (32.0-36.0); Mean Platelet Volume 10.1 fL (9.4-12.4); Neutrophils # (auto) 6.99 K/uL (1.40-6.50); Neutrophils % (auto) 69.7 %; Platelet Count 379 K/uL (130-400); RDW Coefficient of Variation 13.2 % (11.5-14.5); RDW Standard Deviation 38.5 fL (36.4-46.3); Red Blood Count 4.22 M/uL (4.20-5.40); White Blood Count 10.02 K/ul (4.8-10.8)
--- NOTE | 2024-07-01 08:08 | Hospitalist Progress Note ---
Date of Service July 01, 2024 Assessment & Plan (1) Fall: (2) Multiple fractures: (3) Ambulatory dysfunction: Plan Lilibeth Hall is an 84y/o F with PMHx significant for DM type II, hypothyroidism, chronic hyponatremia secondary to SIADH, senile osteoporosis, generalized os teoarthritis, DDD, glaucoma and depression who presented to the ED on 06/30/24 after sustaining a mechanical fall a few days ago. She had missed a step when walking at home and subsequently landed on her left side. She was complaining of left lateral neck pain, left rib pain as well as left knee pain on arrival. Fall, Multiple Fractures Ambulatory Dysfunction: Head CT was negative. CTAP revealed an acute minimally displaced L posterolateral 7th rib fracture and L2 vertebral body compression fracture. L knee CT showed the following --> subtle acute nondisplaced fracture involving the tibial tuberosity, an acute nondisplaced intra-articular fracture of the mid patella and lateral patellar facet and a moderate-sized joint effusion. Dr. Valdivia [ortho spine surgery] saw and evaluated the patient yesterday. Mentions that the L2 compression fracture is likely not acute. He recommended that the patient begin weightbearing as tolerate on the L knee but with a knee immobilizer in place (can be removed for hygiene/clothing changes). Patient to be seen by ortho surgery today, appreciate their recommendations/input moving forward. Aspiration precautions. Pain control, utilize topical lidocaine patches on the L knee and L chest wall. PT/OT recommending inpatient rehab stay when able patient is medically stable for discharge - will continue to follow patient daily. Encouraged to use her incentive spirometer as her thoracic spine CT showed a trace L pleural effusion. SIADH: Na level stable at 133 today. Continue salt tablets. Patient follows with [facility]. Continue fluid restriction of 1500mL/day. Continue to monitor Na level closely with daily labs. DM Type II: Home agents on hold, SSI regimen while inpatient. Continue to monitor BSG ACHS. Hgb A1c was 7.9% on 06/28/24. Other Chronic Medical Conditions: Hypothyroidism, depression --> Continue home meds for these specific conditions. DVT Prophylaxis: SQ Lovenox Code Status: FULL CODE PCP: Tabitha Hall MD Disposition: Admitted in Med/Surg - anticipate rehabilitation placement when patient is medically stable for discharge. CM involved and referrals have been placed --> [facility]. Patient seen in collaboration with Dr. Aceves. Please see addendum. I spent a total of 50 minutes coordinating, documenting, and providing care for this patient excluding time spent in the performance of separately billed services. This included personally reviewing all current laboratories and imaging studies, medical reconciliation, outpatient chart review and discussion with specialists. This chart was completed in part utilizing Speech Voice Recognition Software. Grammatical errors, random word insertions, pronoun errors, and incomplete sentences are an occasional consequence of this system due to software limitations, ambient noise, and hardware issues. Any formal questions or concerns about the content, text, or information contained within the body of this dictation should be directly addressed to the provider for clarification. Admission and Anticipated Discharge Date Admission Date: June 30, 2024 Supervising Physician Co-Signing Physician Notes I have seen and discussed the case with the collaborating advanced practitioner. I agree with the above PN. I have reviewed and confirmed the patients medical history, the findings on physical examination, and the patients diagnosis and treatment plan with [facility] and agree with the information documented. Patient evaluated in bedside chair. Reports pain on left hand side from flank to leg. She is agreeable to tylenol Rehab referrals made. WBAT with knee immobilizer. rest of plan as above I spent a total of 15 minutes coordinating, documenting, and providing care for this patient excluding time spent in the performance of separately billed services. All of the aforementioned completed outside of collaborating with the assigned advanced practitioner for a full treatment plan. I have reviewed the advanced practitioner's documentation, and I agree with, and take responsibility for the plan of care Subjective Patient reports that she is still experiencing some pain in her left chest region and left leg. Mentions that she has been out of bed to use the bedside commode. Denies any SOB or chest pain. 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 Review of Systems Review of Systems: At least ten systems reviewed and negative, except as noted in the subjective section. Physical Exam Physical Exam: General: Very thin, vitals as above, NAD, sitting up in bed, very pleasant, conversing appropriately. A+Ox3, euthymic affect. HEENT: Normocephalic, atraumatic. Normal inspection, PERRL, conjunctivae normal, anicteric sclerae, oropharynx normal. Respiratory: Normal respiratory effort, lungs clear to auscultation, no wheeze, rales, rhonchi. No accessory muscle use. Cardiovascular: Regular rate, rhythm, no murmur, normal peripheral pulses, no BLE edema. Vessels: No JVD. Abdomen/GI: Normal bowel sounds, soft, nontender, no hepatosplenomegaly. Extremities/Musculoskeletal: No cyanosis or clubbing, LLE in a knee immobilizer, L chest wall tenderness. Neurologic: EOMI, no focal deficits, CN's II-XI not formally tested but appear grossly intact bilaterally. Skin: No rashes, normal color, warm/dry. Results & Data Results & Data Vital Signs (Past 12 Hours) Vital Signs Temp Pulse Resp BP Pulse Ox O2 Del Method 07/01/24 07:40 36.5 C 81 18 152/82 H 97 Room Air Laboratory Results Short CBC 06/30/24 07/01/24 Range/Units 11:59 07:04 WBC 8.74 10.02 (4.8-10.8) K/ul Hgb 12.0 11.5 L (12.0-16.0) g/dl Hct 37.0 34.2 L (37.0-47.0) % Plt Count 350 379 (130-400) K/uL BMP 06/30/24 11:59 Sodium 134 L Potassium 4.2 Chloride 101 Carbon Dioxide 26 BUN 10 Creatinine 0.64 Glucose 146 H Calcium 9.4 Liver Function 06/30/24 Range/Units 11:59 Total Bilirubin 0.6 (0.2-1.0) mg/dl AST 13 (13-39) U/L ALT 12 (7-52) U/L Alkaline Phosphatase 58 (34-104) U/L Albumin 4.0 (3.4-5.0) gm/dl (1) Fall Encounter type: initial encounter Qualified Code(s): W19.XXXA - Unspecified fall, initial encounter
--- NOTE | 2024-07-01 08:56 | Orthopedic Progress Note ---
Date of Service July 01, 2024 Assessment & Plan (1) Closed tibial fracture: (2) Left patella fracture: xray and ct scan reviewed by Dr. Barnett. Her knee injuries can be treated nonoperatively. WBAT with knee immobilizer. No knee range of motion at this time. Follow up in 1 month as outpatient. Subjective .84 year old patient admitted yesterday after a fall 2 days ago, with multiple injuries. She complains of some left sided rib pain and left knee pain. No hip/groin pain. She has a history of advanced knee DJD and has received steroid injections in the past. She was placed in a knee immobilizer in the ER. She was seen yesterday by Dr. Valdivia with orthopedics as well. Review of Systems All systems reviewed & are unremarkable except as noted in HPI & below. Physical Exam . alert and oriented. NAD Left leg: large knee effusion present. Tender to palpation around the anterior knee/tibia tubercle area. Able to do a good straight leg raise. No knee range of motion done at this time. Skin intact around the knee. Results & Data Results & Data Laboratory Results . Diagnostic Findings . xray and ct scan of the knee reviewed and shows a nondisplaced vertical fracture of the patella and a nondisplaced tibia tubercle fracture. PG Care Time/CCT Total # of Minutes Spent Total Time Spent with Patient: Total time spent is greater than 50% in coordination of care (as documented) at patient's floor/unit and/or counseling patient: Coding Level of Care Code 40797 SUB INP/OBS CARE 2/35MIN Diagnoses Closed tibial fracture S82.209A Left patella fracture S82.002A
[2024-07-01] MEDS ORDERED: NON-FORMULARY MEDICATION (Coenzyme Q10 [Coq-10] 100 mg Capsule) PO SCH (09:00)
[2024-07-01] MEDS: ASPIRIN 81 MG ECTAB PO SCH (09:08)
[2024-07-01] MEDS: SODIUM CHLORIDE 1 GM TABLET PO SCH (09:08)
[2024-07-01] MEDS: CHOLECALCIFEROL 25 MCG (1000 UNITS) TAB PO SCH (09:08)
[2024-07-01] MEDS: CALCIUM 600MG + VIT D 400 IU TAB PO SCH (09:09)
[2024-07-01] MEDS: DULoxetine HCL 60 MG CAP PO SCH (09:09)
[2024-07-01] MEDS: ASCORBIC ACID 500 MG TAB PO SCH (09:09)
[2024-07-01] MEDS: ROSUVASTATIN CALCIUM 5 MG TAB PO SCH (09:09)
[2024-07-01] MEDS: DULoxetine HCL 30 MG CAP PO SCH (09:09)
[2024-07-01 09:40] LABS: Bilirubin,Total 0.7 mg/dl (0.2-1.0); Calcium 9.2 mg/dl (8.6-10.3); Magnesium 1.6 mg/dl (1.7-2.4); Potassium 3.7 mmol/L (3.5-5.1)
[2024-07-01 09:46] LABS: Albumin Globulin Ratio 1.5 (0.9-2); BUN Creatinine Ratio 12.1 (10-20); Creatinine Clr Calc Pharmacy 42.1 ml/min; Est GFR (African American) 92.7 ml/min; Globulin 2.7 gm/dl (2.5-4.0); Total Protein 6.7 gm/dl (6.0-8.3)
[2024-07-01] MEDS: ACETAMINOPHEN 325 MG TAB PO SCH (10:38)
[2024-07-01] MEDS: ACETAMINOPHEN 500 MG TAB PO SCH (10:49)
[2024-07-01] MEDS: MAGNESIUM OXIDE 400 MG TAB PO SCH (16:32)
[2024-07-02] MEDS: LEVOTHYROXINE SODIUM 25 MCG TABLET PO SCH (05:59)
[2024-07-02 07:54] LABS: Hemoglobin 11.4 g/dl (12.0-16.0); Mean Corpuscular Hgb Conc 33.5 g/dL (32.0-36.0); Mean Corpuscular Volume 80.6 fL (80.0-100.0); Mean Platelet Volume 9.2 fL (9.4-12.4); Platelet Count 364 K/uL (130-400); RDW Coefficient of Variation 13.1 % (11.5-14.5); RDW Standard Deviation 37.5 fL (36.4-46.3); Red Blood Count 4.22 M/uL (4.20-5.40); White Blood Count 6.81 K/ul (4.8-10.8)
[2024-07-02 08:09] LABS: Calcium 9.2 mg/dl (8.6-10.3); Magnesium 1.7 mg/dl (1.7-2.4); Potassium 4.1 mmol/L (3.5-5.1)
[2024-07-02 08:40] LABS: BUN Creatinine Ratio 11.6 (10-20); Creatinine Clr Calc Pharmacy 40.3 ml/min; Est GFR (African American) 91.4 ml/min; Est GFR (Non-African American) 78.8 ml/min
--- NOTE | 2024-07-02 10:32 | Hospitalist Progress Note ---
Date of Service July 02, 2024 Assessment & Plan (1) Fall: (2) Multiple fractures: (3) Ambulatory dysfunction: Plan Lilibeth Hall is an 84y/o F with PMHx significant for DM type II, hypothyroidism, cognitive impairment, chronic hyponatremia secondary to SIADH, senile osteop orosis, generalized osteoarthritis, DDD, glaucoma and depression who presented to the ED on 06/30/24 after sustaining a mechanical fall a few days ago. She had missed a step when walking at home and subsequently landed on her left side. She was complaining of left lateral neck pain, left rib pain as well as left knee pain on arrival. Fall, Multiple Fractures Ambulatory Dysfunction: Head CT was negative. CTAP revealed an acute minimally displaced L posterolateral 7th rib fracture and L2 vertebral body compression fracture. L knee CT showed the following --> subtle acute nondisplaced fracture involving the tibial tuberosity, an acute nondisplaced intra-articular fracture of the mid patella and lateral patellar facet and a moderate-sized joint effusion. Dr. Valdivia [ortho spine surgery] saw and evaluated the patient --> L2 compression fracture is likely not acute. Recommended that the patient begin weightbearing as tolerate on the L knee but with a knee immobilizer in place (can be removed for hygiene/clothing changes). Patient was seen by ortho PA-C as well --> "X-ray and ct scan reviewed by Dr. Barnett. Her knee injuries can be treated nonoperatively. WBAT with knee immobilizer. No knee range of motion at this time. Follow-up in 1 month as outpatient." Aspiration precautions. Pain control, utilize topical lidocaine patches on the L knee and L chest wall. PT/OT recommending inpatient rehab stay when able patient is medically stable for discharge. CM working on obtaining placement for the patient. Encouraged to use her incentive spirometer as her thoracic spine CT showed a trace L pleural effusion. SIADH: Na level stable at 133 today. Continue salt tablets. Patient follows with [facility]. Continue fluid restriction of 1500mL/day. Continue to monitor Na level closely with daily labs. DM Type II: Home agents on hold, SSI regimen while inpatient. Continue to monitor BSG ACHS. Hgb A1c was 7.9% on 06/28/24. Cognitive Impairment: Follows with [facility], most recent visit with Dr. Alvin Aragon on 06/28/24. 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 Patient was alert + oriented to place, time and situation this morning. Pleasantly forgetful yet understands her diagnoses and reason for admission. Other Chronic Medical Conditions: Hypothyroidism, depression --> Continue home meds for these specific conditions. DVT Prophylaxis: SQ Lovenox Code Status: FULL CODE PCP: Tabitha Hall MD Disposition: Admitted in Med/Surg - CM working on getting rehabilitation placement for the patient. Will need a 1-month follow-up appointment with [facility]. Patient seen in collaboration with Dr. Aceves. Please see addendum. I spent a total of 40 minutes coordinating, documenting, and providing care for this patient excluding time spent in the performance of separately billed services. This included personally reviewing all current laboratories and imaging studies, medical reconciliation, outpatient chart review and discussion with specialists. This chart was completed in part utilizing Speech Voice Recognition Software. Grammatical errors, random word insertions, pronoun errors, and incomplete sentences are an occasional consequence of this system due to software limitations, ambient noise, and hardware issues. Any formal questions or concerns about the content, text, or information contained within the body of this dictation should be directly addressed to the provider for clarification. Admission and Anticipated Discharge Date Admission Date: June 30, 2024 Supervising Physician Co-Signing Physician Notes I have seen and discussed the case with the collaborating advanced practitioner. I agree with the above PN. I have reviewed and confirmed the patients medical history, the findings on physical examination, and the patients diagnosis and treatment plan with [facility] and agree with the information documented. Patient evaluated in bedside chair. Reports pain better controlled today Rehab referrals made. WBAT with knee immobilizer. possible d/c to [facility], auth pending rest of plan as above I spent a total of 15 minutes coordinating, documenting, and providing care for this patient excluding time spent in the performance of separately billed services. All of the aforementioned completed outside of collaborating with the assigned advanced practitioner for a full treatment plan. I have reviewed the advanced practitioner's documentation, and I agree with, and take responsibility for the plan of care Subjective Patient reports that her pain is well-controlled whilst lying in bed this morning. She tolerated her breakfast without any issue. Has been up to use the bathroom. Review of Systems Review of Systems: At least ten systems reviewed and negative, except as noted in the subjective section. Physical Exam Physical Exam: General: Very thin, vitals as above, NAD, sitting up in bed, very pleasant, conversing appropriately. A+Ox3, euthymic affect. HEENT: Normocephalic, atraumatic. Normal inspection, PERRL, conjunctivae normal, anicteric sclerae, oropharynx normal. Respiratory: Normal respiratory effort, lungs clear to auscultation, no wheeze, rales, rhonchi. No accessory muscle use. Cardiovascular: Regular rate, rhythm, no murmur, normal peripheral pulses, no BLE edema. Vessels: No JVD. Abdomen/GI: Normal bowel sounds, soft, nontender, no hepatosplenomegaly. Extremities/Musculoskeletal: No cyanosis or clubbing, LLE in a knee immobilizer, L chest wall tenderness. Neurologic: EOMI, no focal deficits, CN's II-XI not formally tested but appear grossly intact bilaterally. Skin: No rashes, normal color, warm/dry. Results & Data Results & Data Vital Signs (Past 12 Hours) Vital Signs Temp Pulse Resp BP Pulse Ox O2 Del Method 07/02/24 07:47 36.6 C 87 16 149/76 H 95 Room Air Laboratory Results Short CBC 07/02/24 Range/Units 07:35 WBC 6.81 (4.8-10.8) K/ul Hgb 11.4 L (12.0-16.0) g/dl Hct 34.0 L (37.0-47.0) % Plt Count 364 (130-400) K/uL BMP 07/02/24 07:35 Sodium 133 L Potassium 4.1 Chloride 101 Carbon Dioxide 25 BUN 8 Creatinine 0.69 Glucose 155 H Calcium 9.2 (1) Fall Encounter type: initial encounter Qualified Code(s): W19.XXXA - Unspecified fall, initial encounter
[2024-07-03 06:53] LABS: Hematocrit (blood only) 33.5 % (37.0-47.0); Hemoglobin 11.1 g/dl (12.0-16.0); Mean Corpuscular Hemoglobin 27.1 pg (25.0-34.0); Mean Corpuscular Hgb Conc 33.1 g/dL (32.0-36.0); Mean Corpuscular Volume 81.9 fL (80.0-100.0); Mean Platelet Volume 9.5 fL (9.4-12.4); Platelet Count 373 K/uL (130-400); RDW Coefficient of Variation 13.1 % (11.5-14.5); Red Blood Count 4.09 M/uL (4.20-5.40); White Blood Count 7.73 K/ul (4.8-10.8)
[2024-07-03 07:08] LABS: BUN Creatinine Ratio 15.5 (10-20); Calcium 9.3 mg/dl (8.6-10.3); Creatinine Clr Calc Pharmacy 47.9 ml/min; Est GFR (African American) 96.7 ml/min; Est GFR (Non-African American) 83.5 ml/min; Magnesium 1.8 mg/dl (1.7-2.4); Phosphorus 3.7 mg/dl (2.5-4.9); Potassium 4.2 mmol/L (3.5-5.1)
[2024-07-03] MEDS: hydrALAZINE 10 MG TAB PO PRN (08:53)
--- NOTE | 2024-07-03 10:03 | Hospitalist Progress Note ---
Date of Service July 03, 2024 Assessment & Plan (1) Fall: (2) Multiple fractures: (3) Ambulatory dysfunction: Plan Lilibeth Hall is an 84y/o F with PMHx significant for DM type II, hypothyroidism, cognitive impairment, chronic hyponatremia secondary to SIADH, senile osteop orosis, generalized osteoarthritis, DDD, glaucoma and depression who presented to the ED on 06/30/24 after sustaining a mechanical fall a few days ago. She had missed a step when walking at home and subsequently landed on her left side. She was complaining of left lateral neck pain, left rib pain as well as left knee pain on arrival. Patient now pending discharge to rehab. #Mechanical Fall #Left rib fractire #L2 compression fracture #Left tibial tuberosity fracture #Ambulatory Dysfunction: Head CT was negative. CTAP revealed an acute minimally displaced L posterol ateral 7th rib fracture and L2 vertebral body compression fracture. L knee CT showed the following --> subtle acute nondisplaced fracture involving the tibial tuberosity, an acute nondisplaced intra-articular fracture of the mid patella and lateral patellar facet and a moderate-sized joint effusion. Dr. Valdivia [ortho spine surgery] saw and evaluated the patient --> L2 compression fracture is likely not acute. Recommended that the patient begin weightbearing as tolerate on the L knee but with a knee immobilizer in place (can be removed for hygiene/clothing changes). Patient was seen by ortho PA-C as well --> "X-ray and ct scan reviewed by Dr. Barnett. Her knee injuries can be treated nonoperatively. WBAT with knee immobilizer. No knee range of motion at this time. Follow-up in 1 month as outpatient." Continue IS Continue pain control, utilize topical lidocaine patches on the L knee and L chest wall. Scheduled tylenol Patient declines additional po analgesia PT/OT recommending inpatient rehab stay when able patient is medically stable for discharge Pending dispo to rehab #SIADH: Na level stable at 133 today. Continue salt tablets. Patient follows with [facility]. Continue fluid restriction of 1500mL/day Alternate labs #DM Type II: Home agents on hold, SSI regimen while inpatient. Continue to monitor BSG ACHS. Hgb A1c was 7.9% on 06/28/24. #Cognitive Impairment: Follows with [facility], most recent visit with Dr. Alvin Aragon on 06/28/24. 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 Patient was alert + oriented to place, time and situation this morning. Pleasantly forgetful yet understands her diagnoses and reason for admission. Other Chronic Medical Conditions: Hypothyroidism, depression --> Continue home meds for these specific conditions. Liberalize diet from DMTII, add vegetarian DVT Prophylaxis: SQ Lovenox Code Status: FULL CODE PCP: Tabitha Hall MD Disposition: Admitted in Med/Surg - CM working on getting rehabilitation placement for the patient. Will need a 1-month follow-up appointment with [facility]. Admission and Anticipated Discharge Date Admission Date: June 30, 2024 Subjective Sitting at bedside chair awaiting breakfast States she feels a little more uncomfortable as she jsut got back from bathroom but feels a heating pad and warm compresses to knee may feel very nice Denies any other acute concerns Physical Exam Constitutional: WD/WN, vitals as above Respiratory: normal respiratory effort, lungs clear to auscultation Cardiovascular: RRR, no murmur, no edema Musculoskeletal: left knee immobilzer in place Results & Data Results & Data Vital Signs (Past 12 Hours) Vital Signs Temp Pulse Resp BP Pulse Ox O2 Del Method 07/03/24 08:00 36.8 C 74 18 147/73 H 95 Room Air Laboratory Results Short CBC 07/03/24 Range/Units 06:27 WBC 7.73 (4.8-10.8) K/ul Hgb 11.1 L (12.0-16.0) g/dl Hct 33.5 L (37.0-47.0) % Plt Count 373 (130-400) K/uL BMP 07/03/24 06:27 Sodium 135 L Potassium 4.2 Chloride 104 Carbon Dioxide 24 BUN 9 Creatinine 0.58 L Glucose 142 H Calcium 9.3 Medications Administered Home Medications Medication Instructions Recorded Confirmed Last Taken ascorbic acid (vitamin C) 500 mg 500 mg PO DAILY 06/23/19 06/30/24 Unknown tablet cholecalciferol (vitamin D3) 50 2,000 units PO DAILY 06/23/19 06/30/24 Unknown mcg (2,000 unit) tablet travoprost 0.004 % eye drops 1 drops ophthalmic (eye) QPM #3 mL 06/23/19 06/30/24 Unknown diclofenac sodium 1 % topical gel 1 ea topical QID PRN Other 08/07/20 06/30/24 Unknown sodium chloride 1 gram tablet 1 g PO DAILY 10/02/20 06/30/24 Unknown calcium carbonate 600 mg-vitamin 1 tab PO DAILY 03/21/21 06/30/24 Unknown D3 5 mcg (200 unit) tablet coenzyme Q10 100 mg capsule 100 mg PO DAILY 03/21/21 06/30/24 Unknown (CoQ-10) duloxetine 60 mg capsule,delayed 60 mg PO DAILY 03/21/21 06/30/24 Unknown release metformin 500 mg tablet,extended 1,000 mg PO UD 03/21/21 06/30/24 Unknown release 24 hr B12 1 tab PO DAILY 09/25/23 06/30/24 Unknown cyanocobalamin (vitamin B-12) 1,000 mcg IM MONTHLY 09/25/23 06/30/24 09/24/23 1,000 mcg/mL injection kit dulaglutide 0.75 mg/0.5 mL 0.75 mg subcut WK 09/25/23 06/30/24 Unknown subcutaneous pen injector (Trulicity) iron glycinate,polysacch cmplx 1 tab PO . TU,TH,SAT 09/25/23 06/30/24 Unknown magnesium 1 tab PO . FRI,FRI,Fri09/25/23 06/30/24 Unknown rosuvastatin 5 mg tablet 5 mg PO UD 09/25/23 06/30/24 Unknown duloxetine 30 mg capsule,delayed 30 mg PO DAILY 06/30/24 06/30/24 Unknown release levothyroxine 25 mcg tablet 25 mcg PO UD 06/30/24 06/30/24 Unknown (Synthroid) Active Medications Generic Name Dose Route Start Last Admin Trade Name Freq PRN Reason Stop Dose Admin Acetaminophen 1,000 mg 07/01/24 11:00 07/03/24 03:10 Acetaminophen 500 Mg Tab PO 07/31/24 10:59 Not Given Q8H LOGAN Ascorbic Acid 500 mg 07/01/24 09:00 07/03/24 08:55 Ascorbic Acid 500 Mg Tab PO 07/31/24 08:59 500 mg DAILY LOGAN Administration Calcium/Vitamin D 1 tab 07/01/24 09:00 07/03/24 08:54 Calcium 600mg + Vit D 400 Iu Tab PO 07/31/24 08:59 1 tab DAILY LOGAN Administration Duloxetine HCl 30 mg 07/01/24 09:00 07/03/24 08:54 Duloxetine Hcl 30 Mg Cap PO 07/31/24 08:59 30 mg DAILY LOGAN Administration Duloxetine HCl 60 mg 07/01/24 09:00 07/03/24 08:54 Duloxetine Hcl 60 Mg Cap PO 07/31/24 08:59 60 mg DAILY LOGAN Administration Enoxaparin Sodium 30 mg 06/30/24 21:00 07/02/24 20:42 Enoxaparin Inj 30 Mg/0.3 Ml Syr SQ 07/30/24 20:59 30 mg HS LOGAN Administration Insulin Aspart 0 units 06/30/24 21:00 07/03/24 09:05 Insulin Aspart Per Unit Charge SC 07/30/24 20:59 2 units ACHS LOGAN Administration Levothyroxine Sodium 25 mcg 07/02/24 06:30 07/03/24 06:29 Levothyroxine Sodium 25 Mcg Tablet PO 08/01/24 06:29 25 mcg [id number] LOGAN Administration Levothyroxine Sodium 50 mcg 07/01/24 06:30 07/01/24 05:24 Levothyroxine Sodium 50 Mcg Tablet PO 07/31/24 06:29 50 mcg [id number] LOGAN Administration Lidocaine 2 patch 06/30/24 18:15 07/03/24 08:55 Lidocaine 5% 1 Patch TD 07/30/24 18:14 2 patch QAM LOGAN Administration Magnesium Oxide 400 mg 07/01/24 15:30 07/03/24 08:54 Magnesium Oxide 400 Mg Tab PO 07/31/24 15:29 400 mg QAM LOGAN Administration Miscellaneous 2 each 07/01/24 01:00 07/02/24 20:44 Remove Lidoderm Patch N/A 07/31/24 00:59 2 each [id number] LOGAN Administration Rosuvastatin Calcium 5 mg 07/01/24 09:00 07/03/24 08:55 Rosuvastatin Calcium 5 Mg Tab PO 07/31/24 08:59 5 mg DAILY LOGAN Administration Sodium Chloride 1 gm 07/01/24 09:00 07/03/24 08:54 Sodium Chloride 1 Gm Tablet PO 07/31/24 08:59 1 gm DAILY LOGAN Administration Travoprost 1 drops 06/30/24 21:00 07/02/24 20:36 Travoprost Z 0.004% Oph Soln 2.5 Ml Btl OP 07/30/24 20:59 1 drops QPM LOGAN Administration Vitamin D 50 mcg 07/01/24 09:00 07/03/24 08:54 Cholecalciferol 25 Mcg (1000 Units) Tab PO 07/31/24 08:59 50 mcg DAILY LOGAN Administration (1) Fall Encounter type: initial encounter Qualified Code(s): W19.XXXA - Unspecified fall, initial encounter
--- NOTE | 2024-07-04 15:57 | Hospitalist Progress Note ---
Date of Service July 04, 2024 Assessment & Plan (1) Fall: (2) Multiple fractures: (3) Ambulatory dysfunction: Plan Lilibeth Hall is an 84y/o F with PMHx significant for DM type II, hypothyroidism, cognitive impairment, chronic hyponatremia secondary to SIADH, senile osteop orosis, generalized osteoarthritis, DDD, glaucoma and depression who presented to the ED on 06/30/24 after sustaining a mechanical fall a few days ago. She had missed a step when walking at home and subsequently landed on her left side. She was complaining of left lateral neck pain, left rib pain as well as left knee pain on arrival. Patient now pending discharge to rehab. No changes to plan. Patient declined any further adjustments to pain regimen #Mechanical Fall #Left rib fractire #L2 compression fracture #Left tibial tuberosity fracture #Ambulatory Dysfunction: Head CT was negative. CTAP revealed an acute minimally displaced L posterolateral 7th rib fracture and L2 vertebral body compression fracture. L knee CT showed the following --> subtle acute nondisplaced fracture involving the tibial tuberosity, an acute nondisplaced intra-articular fracture of the mid patella and lateral patellar facet and a moderate-sized joint effusion. Dr. Valdivia [ortho spine surgery] saw and evaluated the patient --> L2 compression fracture is likely not acute. Recommended that the patient begin weightbearing as tolerate on the L knee but with a knee immobilizer in place (can be removed for hygiene/clothing changes). Patient was seen by ortho PA-C as well --> "X-ray and ct scan reviewed by Dr. Barnett. Her knee injuries can be treated nonoperatively. WBAT with knee immobilizer. No knee range of motion at this time. Follow-up in 1 month as outpatient." Continue IS Continue pain control, utilize topical lidocaine patches on the L knee and L chest wall. Scheduled tylenol Patient declines additional po analgesia PT/OT recommending inpatient rehab stay when able patient is medically stable for discharge Pending dispo to rehab #SIADH: Na level stable at 133 today. Continue salt tablets. Patient follows with [facility]. Continue fluid restriction of 1500mL/day Alternate labs #DM Type II: Home agents on hold, SSI regimen while inpatient. Continue to monitor BSG ACHS. Hgb A1c was 7.9% on 06/28/24. #Cognitive Impairment: Follows with [facility], most recent visit with Dr. Alvin Aragon on 06/28/24. 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 Patient was alert + oriented to place, time and situation this morning. Pleasantly forgetful yet understands her diagnoses and reason for admission. Other Chronic Medical Conditions: Hypothyroidism, depression --> Continue home meds for these specific conditions. Liberalize diet from DMTII, add vegetarian DVT Prophylaxis: SQ Lovenox Code Status: FULL CODE PCP: Tabitha Hall MD Disposition: Admitted in Med/Surg - CM working on getting rehabilitation placement for the patient. Will need a 1-month follow-up appointment with [facility] Orthopedics & Sports Medicine. Admission and Anticipated Discharge Date Admission Date: June 30, 2024 Subjective Patient reports eating breakfast this morning Discussed her pain and she does not want further medications Encouraged her to trial something more than tylenol if she needs, however she declines at time of exam Denies any new symptoms, including no report of chest pain, abdominal pain, sob or thakur Physical Exam Constitutional: WD/WN, vitals as above Respiratory: normal respiratory effort, lungs clear to auscultation Cardiovascular: RRR, no murmur, no edema Musculoskeletal: left knee immobilizer in place Results & Data Results & Data Vital Signs (Past 12 Hours) Vital Signs Temp Pulse Resp BP Pulse Ox O2 Del Method 07/04/24 15:14 36.4 C L 82 16 163/75 H 97 Room Air 07/04/24 07:21 36.5 C 86 16 168/92 H 97 Room Air Medications Administered Home Medications Medication Instructions Recorded Confirmed Last Taken ascorbic acid (vitamin C) 500 mg 500 mg PO DAILY 06/23/19 06/30/24 Unknown tablet cholecalciferol (vitamin D3) 50 2,000 units PO DAILY 06/23/19 06/30/24 Unknown mcg (2,000 unit) tablet travoprost 0.004 % eye drops 1 drops ophthalmic (eye) QPM #3 mL 06/23/19 06/30/24 Unknown diclofenac sodium 1 % topical gel 1 ea topical QID PRN Other 08/07/20 06/30/24 Unknown sodium chloride 1 gram tablet 1 g PO DAILY 10/02/20 06/30/24 Unknown calcium carbonate 600 mg-vitamin 1 tab PO DAILY 03/21/21 06/30/24 Unknown D3 5 mcg (200 unit) tablet coenzyme Q10 100 mg capsule 100 mg PO DAILY 03/21/21 06/30/24 Unknown (CoQ-10) duloxetine 60 mg capsule,delayed 60 mg PO DAILY 03/21/21 06/30/24 Unknown release metformin 500 mg tablet,extended 1,000 mg PO UD 03/21/21 06/30/24 Unknown release 24 hr B12 1 tab PO DAILY 09/25/23 06/30/24 Unknown cyanocobalamin (vitamin B-12) 1,000 mcg IM MONTHLY 09/25/23 06/30/24 09/24/23 1,000 mcg/mL injection kit dulaglutide 0.75 mg/0.5 mL 0.75 mg subcut WK 09/25/23 06/30/24 Unknown subcutaneous pen injector (Trulicity) iron glycinate,polysacch cmplx 1 tab PO . TUES,TH,SAT 09/25/23 06/30/24 Unknown magnesium 1 tab PO . MON,WED,Fri09/25/23 06/30/24 Unknown rosuvastatin 5 mg tablet 5 mg PO UD 09/25/23 06/30/24 Unknown duloxetine 30 mg capsule,delayed 30 mg PO DAILY 06/30/24 06/30/24 Unknown release levothyroxine 25 mcg tablet 25 mcg PO UD 06/30/24 06/30/24 Unknown (Synthroid) Active Medications Generic Name Dose Route Start Last Admin Trade Name Mertq PRN Reason Stop Dose Admin Acetaminophen 1,000 mg 07/01/24 11:00 07/04/24 10:57 Acetaminophen 500 Mg Tab PO 07/31/24 10:59 1,000 mg Q8H LOGAN Administration Ascorbic Acid 500 mg 07/01/24 09:00 07/04/24 08:42 Ascorbic Acid 500 Mg Tab PO 07/31/24 08:59 500 mg DAILY LOGAN Administration Calcium/Vitamin D 1 tab 07/01/24 09:00 07/04/24 08:42 Calcium 600mg + Vit D 400 Iu Tab PO 07/31/24 08:59 1 tab DAILY LOGAN Administration Duloxetine HCl 30 mg 07/01/24 09:00 07/04/24 08:42 Duloxetine Hcl 30 Mg Cap PO 07/31/24 08:59 30 mg DAILY LOGAN Administration Duloxetine HCl 60 mg 07/01/24 09:00 07/04/24 08:42 Duloxetine Hcl 60 Mg Cap PO 07/31/24 08:59 60 mg DAILY LOGAN Administration Enoxaparin Sodium 30 mg 06/30/24 21:00 07/03/24 20:41 Enoxaparin Inj 30 Mg/0.3 Ml Syr SQ 07/30/24 20:59 30 mg HS LOGAN Administration Insulin Aspart 0 units 06/30/24 21:00 07/04/24 12:25 Insulin Aspart Per Unit Charge SC 07/30/24 20:59 2 units ACHS LOGAN Administration Levothyroxine Sodium 25 mcg 07/02/24 06:30 07/04/24 06:24 Levothyroxine Sodium 25 Mcg Tablet PO 08/01/24 06:29 25 mcg [email or web address] LOGAN Administration Levothyroxine Sodium 50 mcg 07/01/24 06:30 07/01/24 05:24 Levothyroxine Sodium 50 Mcg Tablet PO 07/31/24 06:29 50 mcg [email or web address] LOGAN Administration Lidocaine 2 patch 06/30/24 18:15 07/04/24 08:43 Lidocaine 5% 1 Patch TD 07/30/24 18:14 2 patch QAM LOGAN Administration Magnesium Oxide 400 mg 07/01/24 15:30 07/04/24 08:42 Magnesium Oxide 400 Mg Tab PO 07/31/24 15:29 400 mg QAM LOGAN Administration Miscellaneous 2 each 07/01/24 01:00 07/03/24 20:47 Remove Lidoderm Patch N/A 07/31/24 00:59 2 each [email or web address] LOGAN Administration Rosuvastatin Calcium 5 mg 07/01/24 09:00 07/04/24 08:42 Rosuvastatin Calcium 5 Mg Tab PO 07/31/24 08:59 5 mg DAILY LOGAN Administration Sodium Chloride 1 gm 07/01/24 09:00 07/04/24 08:45 Sodium Chloride 1 Gm Tablet PO 07/31/24 08:59 1 gm DAILY LOGAN Administration Travoprost 1 drops 06/30/24 21:00 07/03/24 20:40 Travoprost Z 0.004% Oph Soln 2.5 Ml Btl OP 07/30/24 20:59 1 drops QPM LOGAN Administration Vitamin D 50 mcg 07/01/24 09:00 07/04/24 08:42 Cholecalciferol 25 Mcg (1000 Units) Tab PO 07/31/24 08:59 50 mcg DAILY LOGAN Administration (1) Fall Encounter type: initial encounter Qualified Code(s): W19.XXXA - Unspecified fall, initial encounter
[2024-07-04] MEDS: DICLOFENAC SOD 1% GEL 100 GM TUBE EXT PRN (23:14)
--- NOTE | 2024-07-05 10:18 | Hospitalist Progress Note ---
Date of Service July 05, 2024 Assessment & Plan (1) Fall: (2) Multiple fractures: (3) Ambulatory dysfunction: Plan Lilibeth Hall is an 84y/o F with PMHx significant for DM type II, hypothyroidism, cognitive impairment, chronic hyponatremia secondary to SIADH, senile osteop orosis, generalized osteoarthritis, DDD, glaucoma and depression who presented to the ED on 06/30/24 after sustaining a mechanical fall a few days ago. She had missed a step when walking at home and subsequently landed on her left side. She was complaining of left lateral neck pain, left rib pain as well as left knee pain on arrival. Patient now pending discharge to rehab. No changes to plan. Patient declined any further adjustments to pain regimen #Mechanical Fall #Left rib fractire #L2 compression fracture #Left tibial tuberosity fracture #Ambulatory Dysfunction: Head CT was negative. CTAP revealed an acute minimally displaced L posterolateral 7th rib fracture and L2 vertebral body compression fracture. L knee CT showed the following --> subtle acute nondisplaced fracture involving the tibial tuberosity, an acute nondisplaced intra-articular fracture of the mid patella and lateral patellar facet and a moderate-sized joint effusion. Dr. Valdivia [ortho spine surgery] saw and evaluated the patient --> L2 compression fracture is likely not acute. Recommended that the patient begin weightbearing as tolerate on the L knee but with a knee immobilizer in place (can be removed for hygiene/clothing changes). Patient was seen by ortho PA-C as well --> "X-ray and ct scan reviewed by Dr. Barnett. Her knee injuries can be treated nonoperatively. WBAT with knee immobilizer. No knee range of motion at this time. Follow-up in 1 month as outpatient." Continue IS Continue pain control, utilize topical lidocaine patches on the L knee and L chest wall. Scheduled tylenol Patient declines additional po analgesia PT/OT recommending inpatient rehab stay when able patient is medically stable for discharge Pending dispo to rehab #SIADH: Na levels stable. Continue salt tablets. Patient follows with [facility]. Continue fluid restriction of 1500mL/day Alternate labs #DM Type II: Home agents on hold, SSI regimen while inpatient. Continue to monitor BSG ACHS. Hgb A1c was 7.9% on 06/28/24. Okay for liberal control given age. #Cognitive Impairment: Follows with [facility], most recent visit with Dr. Alvin Aragon on 06/28/24. 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 Patient was alert + oriented to place, time and situation this morning. Pleasantly forgetful yet understands her diagnoses and reason for admission. Other Chronic Medical Conditions: Hypothyroidism, depression --> Continue home meds for these specific conditions. Liberalize diet from DMTII, add vegetarian DVT Prophylaxis: SQ Lovenox Code Status: FULL CODE PCP: Tabitha Hall MD Disposition: Admitted in Med/Surg - CM working on getting rehabilitation placement for the patient. Will need a 1-month follow-up appointment with [facility] Orthopedics & Sports Medicine. I spent a total of 44 minutes reviewing notes, outpatient records, labs, medication, coordinating, documenting and providing care for this patient excluding time spent in the performance of separately billed services. Admission and Anticipated Discharge Date Admission Date: June 30, 2024 Supervising Physician Co-Signing Physician Notes I have seen and discussed the case with the collaborating advanced practitioner. I agree with the above PN. I have reviewed and confirmed the patients medical history, the findings on physical examination, and the patients diagnosis and treatment plan with [facility] and agree with the information documented. [facility]P for [facility] unsuccessful today. Pending placement for SNF I spent a total of 15 minutes coordinating, documenting, and providing care for this patient excluding time spent in the performance of separately billed services. All of the aforementioned completed outside of collaborating with the assigned advanced practitioner for a full treatment plan. I have reviewed the advanced practitioner's documentation, and I agree with, and take responsibility for the plan of care Subjective NAEO She reports being tired this morning. Her pain is about 5/10 at rest. She denies f/c/s, chest pain, sob, n/v. She feels her intake is adequate. She is having a BM once daily. Review of Systems Review of Systems: All systems reviewed & are unremarkable except as noted in HPI & below Physical Exam Physical Exam: Gen: Thin, petite, F, NAD, A&O x3 HEENT: Normocephalic, atraumatic, conjunctivae moist, sclerae anicteric, mucous membranes moist. Lung: Clear to Auscultation bilaterally, no wheezes/rales/rhonchi Heart: Regular rate, regular rhythm, no murmurs, rubs, or gallops Abdomen: Soft, NT, ND +BS x 4 Extremities: No edema Skin: Warm, no rash, negative turgor. Results & Data Results & Data Vital Signs (Past 12 Hours) Vital Signs Temp Pulse Resp BP Pulse Ox O2 Del Method 07/05/24 07:41 36.5 C 79 18 134/77 98 Room Air Medications Administered Current Inpatient Medications Acetaminophen (Acetaminophen 500 Mg Tab) 1,000 mg PO Q8H LOGAN Stop: 07/31/24 10:59 Last Admin: 07/05/24 03:34 Dose: 1,000 mg Ascorbic Acid (Ascorbic Acid 500 Mg Tab) 500 mg PO DAILY LOGAN Stop: 07/31/24 08:59 Last Admin: 07/05/24 09:26 Dose: 500 mg Calcium/Vitamin D (Calcium 600mg + Vit D 400 Iu Tab) 1 tab PO DAILY LOGAN Stop: 07/31/24 08:59 Last Admin: 07/05/24 09:26 Dose: 1 tab Dextrose (Dextrose 50% 50 Ml Syringe) 25 - 50 ml IV UD PRN; Protocol PRN Reason: Hypoglycemia Protocol Stop: 07/30/24 17:38 Diclofenac Sodium (Diclofenac Sod 1% Gel 100 Gm Tube) 2 gm EXT Q6H PRN; Protocol PRN Reason: joint pain Stop: 08/03/24 22:05 Last Admin: 07/04/24 23:14 Dose: 2 gm Duloxetine HCl (Duloxetine Hcl 30 Mg Cap) 30 mg PO DAILY LOGAN Stop: 07/31/24 08:59 Last Admin: 07/05/24 09:26 Dose: 30 mg Duloxetine HCl (Duloxetine Hcl 60 Mg Cap) 60 mg PO DAILY LOGAN Stop: 07/31/24 08:59 Last Admin: 07/05/24 09:25 Dose: 60 mg Enoxaparin Sodium (Enoxaparin Inj 30 Mg/0.3 Ml Syr) 30 mg SQ HS LOGAN Stop: 07/30/24 20:59 Last Admin: 07/04/24 21:19 Dose: 30 mg Glucagon (Glucagon For Inj 1 Mg Vial) 1 mg SQ UD PRN; Protocol PRN Reason: Hypoglycemia Protocol Stop: 07/30/24 17:38 Glucose (Glucose 40% Gel 15 Gm Tube) 15 - 30 gm PO UD PRN; Protocol PRN Reason: Hypoglycemia Protocol Stop: 07/30/24 17:38 Glucose (Glucose 10 Tab/Tube) 4 - 8 tab PO UD PRN; Protocol PRN Reason: Hypoglycemia Treatment Stop: 07/30/24 17:38 Glucose (Glucose 40% Gel 15 Gm Tube) 15 - 30 gm PO UD PRN; Protocol PRN Reason: Hypoglycemia Protocol Stop: 07/30/24 18:15 Glucose (Glucose 10 Tab/Tube) 4 - 8 tab PO UD PRN; Protocol PRN Reason: Hypoglycemia Treatment Stop: 07/30/24 18:15 Hydralazine HCl (Hydralazine 10 Mg Tab) 10 mg PO Q6H PRN PRN Reason: SBP > 170 or DBP > 100 Stop: 07/30/24 17:59 Insulin Aspart (Insulin Aspart Per Unit Charge) 0 units SC ACHS [facility] Stop: 07/30/24 20:59 Last Admin: 07/05/24 09:22 Dose: 2 units Levothyroxine Sodium (Levothyroxine Sodium 25 Mcg Tablet) 25 mcg PO [email or web address] [facility] Stop: 08/01/24 06:29 Last Admin: 07/04/24 06:24 Dose: 25 mcg Levothyroxine Sodium (Levothyroxine Sodium 50 Mcg Tablet) 50 mcg PO [email or web address] [facility] Stop: 07/31/24 06:29 Last Admin: 07/05/24 05:33 Dose: 50 mcg Lidocaine (Lidocaine 5% 1 Patch) 2 patch [facility] Stop: 07/30/24 18:14 Last Admin: 07/05/24 09:26 Dose: 2 patch Magnesium Oxide (Magnesium Oxide 400 Mg Tab) 400 mg PO QAM [facility] Stop: 07/31/24 15:29 Last Admin: 07/05/24 09:25 Dose: 400 mg Miscellaneous (Carbohydrates For Hypoglycemia ) 15 - 30 gm PO UD PRN PRN Reason: Hypoglycemia Protocol Stop: 07/30/24 17:38 Miscellaneous (Remove Lidoderm Patch) 2 each N/A DAILY@2100 [facility] Stop: 07/31/24 00:59 Last Admin: 07/04/24 19:46 Dose: 2 each Miscellaneous (Carbohydrates For Hypoglycemia ) 15 - 30 gm PO UD PRN PRN Reason: Hypoglycemia Protocol Stop: 07/30/24 18:15 Ondansetron HCl (Ondansetron Inj 2 Mg/Ml 2 Ml Vial) 4 mg IV Q6H PRN PRN Reason: Nausea Stop: 07/30/24 17:38 Polyethylene Glycol (Polyethylene (Miralax) 17 Gm Pack) 17 gm PO DAILY PRN PRN Reason: Constipation Stop: 07/30/24 17:38 Rosuvastatin Calcium (Rosuvastatin Calcium 5 Mg Tab) 5 mg PO DAILY LOGAN Stop: 07/31/24 08:59 Last Admin: 07/05/24 09:25 Dose: 5 mg Sodium Chloride (Sodium Chloride 1 Gm Tablet) 1 gm PO DAILY LOGAN Stop: 07/31/24 08:59 Last Admin: 07/05/24 09:26 Dose: 1 gm Travoprost (Travoprost Z 0.004% Oph Soln 2.5 Ml Btl) 1 drops OP QPM LOGAN Stop: 07/30/24 20:59 Last Admin: 07/04/24 21:19 Dose: 1 drops Vitamin D (Cholecalciferol 25 Mcg (1000 Units) Tab) 50 mcg PO DAILY LOGAN Stop: 07/31/24 08:59 Last Admin: 07/05/24 09:25 Dose: 50 mcg (1) Fall Encounter type: initial encounter Qualified Code(s): W19.XXXA - Unspecified fall, initial encounter
[2024-07-06 06:37] LABS: Hematocrit (blood only) 34.2 % (37.0-47.0); Hemoglobin 11.3 g/dl (12.0-16.0); Mean Corpuscular Volume 81.8 fL (80.0-100.0); Mean Platelet Volume 9.5 fL (9.4-12.4); Platelet Count 386 K/uL (130-400); RDW Coefficient of Variation 13.2 % (11.5-14.5); RDW Standard Deviation 39.1 fL (36.4-46.3); Red Blood Count 4.18 M/uL (4.20-5.40); White Blood Count 8.83 K/ul (4.8-10.8)
[2024-07-06 07:06] LABS: BUN Creatinine Ratio 17.2 (10-20); Calcium 9.1 mg/dl (8.6-10.3); Creatinine Clr Calc Pharmacy 43.4 ml/min; Est GFR (African American) 93.6 ml/min; Est GFR (Non-African American) 80.8 ml/min; Potassium 4.3 mmol/L (3.5-5.1)
--- NOTE | 2024-07-06 12:34 | Hospitalist Progress Note ---
Date of Service July 06, 2024 Assessment & Plan (1) Fall: (2) Multiple fractures: (3) Ambulatory dysfunction: Plan Lilibeth Hall is an 84y/o F with PMHx significant for DM type II, hypothyroidism, cognitive impairment, chronic hyponatremia secondary to SIADH, senile osteoporo sis, generalized osteoarthritis, DDD, glaucoma and depression who presented to the ED on 06/30/24 after sustaining a mechanical fall a few days ago. She had missed a step when walking at home and subsequently landed on her left side. She was complaining of left lateral neck pain, left rib pain as well as left knee pain on arrival. Patient now pending discharge to rehab. No changes to plan. Patient declined any further adjustments to pain regimen #Mechanical Fall #Left rib fractire #L2 compression fracture #Left tibial tuberosity fracture #Ambulatory Dysfunction: Head CT was negative. CTAP revealed an acute minimally displaced L posterolateral 7th rib fracture and L2 vertebral body compression fracture. L knee CT showed the following --> subtle acute nondisplaced fracture involving the tibial tuberosity, an acute nondisplaced intra-articular fracture of the mid patella and lateral patellar facet and a moderate-sized joint effusion. Dr. Valdivia [ortho spine surgery] saw and evaluated the patient --> L2 compression fracture is likely not acute. Recommended that the patient begin weightbearing as tolerate on the L knee but with a knee immobilizer in place (can be removed for hygiene/clothing changes). Patient was seen by ortho PA-C as well --> "X-ray and ct scan reviewed by Dr. Barnett. Her knee injuries can be treated nonoperatively. WBAT with knee immobilizer. No knee range of motion at this time. Follow-up in 1 month as outpatient." Continue IS Continue pain control, utilize topical lidocaine patches on the L knee and L chest wall. Scheduled tylenol Patient declines additional po analgesia PT/OT recommending inpatient rehab stay when able patient is medically stable for discharge Pending dispo to rehab #SIADH: Na levels stable. Continue salt tablets. Patient follows with [facility]. Continue fluid restriction of 1500mL/day Alternate labs #DM Type II: Home agents on hold, SSI regimen while inpatient. Continue to monitor BSG ACHS. Hgb A1c was 7.9% on 06/28/24. Okay for liberal control given age. #Cognitive Impairment: Follows with [facility], most recent visit with Dr. Alvin Aragon on 06/28/24. 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 Patient was alert + oriented to place, time and situation this morning. Pleasantly forgetful yet understands her diagnoses and reason for admission. Elevated blood pressure she is currently not on any antihypertensives suspect likely pain related as she typically is not elevated continue to monitor closely, she may need addition of low dose medication, will monitor bp more frequently prn hydralazine for now, she is on NACL tabs which could be contributing Other Chronic Medical Conditions: Hypothyroidism, depression --> Continue home meds for these specific conditions. Liberalize diet from DMTII, add vegetarian DVT Prophylaxis: SQ Lovenox Code Status: FULL CODE PCP: Tabitha Hall MD Disposition: Admitted in Med/Surg - working on getting rehabilitation placement for the patient. Will need a 1-month follow-up appointment with [facility] Orthopedics & Sports Medicine. I spent a total of 46 minutes reviewing notes, outpatient records, labs, medication, coordinating, documenting and providing care for this patient excluding time spent in the performance of separately billed services. Admission and Anticipated Discharge Date Admission Date: June 30, 2024 Supervising Physician Co-Signing Physician Notes I have seen and discussed the case with the collaborating advanced practitioner. I agree with the above PN. I have reviewed and confirmed the patients medical history, the findings on physical examination, and the patients diagnosis and treatment plan with [facility] and agree with the information documented. [facility] for [facility] unsuccessful today. [facility]. I spent a total of 5 minutes coordinating, documenting, and providing care for this patient excluding time spent in the performance of separately billed services. All of the aforementioned completed outside of collaborating with the assigned advanced practitioner for a full treatment plan. I have reviewed the advanced practitioner's documentation, and I agree with, and take responsibility for the plan of care Subjective Continues to have pain with minimal improvement. She is able to get up and walk to and from bathroom with immobilizer in place. She wishes she felt better. She denies f/c/s, chest pain, sob,n/v/d. 1 BM daily. Review of Systems Review of Systems: All systems reviewed & are unremarkable except as noted in HPI & below Physical Exam Physical Exam: Gen: Thin, petite, F, NAD, A&O x3 HEENT: Normocephalic, atraumatic, conjunctivae moist, sclerae anicteric, mucous membranes moist. Lung: Clear to Auscultation bilaterally, no wheezes/rales/rhonchi Heart: Regular rate, regular rhythm, no murmurs, rubs, or gallops Abdomen: Soft, NT, ND +BS x 4 Extremities: No RLE edema, LLE Immobilizer in place, trace LLE edema Skin: Warm, no rash, negative turgor. Results & Data Results & Data Vital Signs (Past 12 Hours) Vital Signs Temp Pulse Resp BP Pulse Ox O2 Del Method 07/06/24 07:43 36.8 C 86 18 178/89 H 96 Room Air Laboratory Results Short CBC 07/06/24 Range/Units 05:56 WBC 8.83 (4.8-10.8) K/ul Hgb 11.3 L (12.0-16.0) g/dl Hct 34.2 L (37.0-47.0) % Plt Count 386 (130-400) K/uL BMP 07/06/24 05:56 Sodium 135 L Potassium 4.3 Chloride 104 Carbon Dioxide 23 BUN 11 Creatinine 0.64 Glucose 127 H Calcium 9.1 (1) Fall Encounter type: initial encounter Qualified Code(s): W19.XXXA - Unspecified fall, initial encounter
--- NOTE | 2024-07-07 10:49 | Hospitalist Progress Note ---
Date of Service July 07, 2024 Assessment & Plan (1) Fall: (2) Multiple fractures: (3) Ambulatory dysfunction: Plan Lilibeth Hall is an 84y/o F with PMHx significant for DM type II, hypothyroidism, cognitive impairment, chronic hyponatremia secondary to SIADH, senile osteoporo sis, generalized osteoarthritis, DDD, glaucoma and depression who presented to the ED on 06/30/24 after sustaining a mechanical fall a few days ago. She had missed a step when walking at home and subsequently landed on her left side. She was complaining of left lateral neck pain, left rib pain as well as left knee pain on arrival. Patient now pending discharge to rehab. No changes to plan. Patient declined any further adjustments to pain regimen #Mechanical Fall #Left rib fractire #L2 compression fracture #Left tibial tuberosity fracture #Ambulatory Dysfunction: Head CT was negative. CTAP revealed an acute minimally displaced L posterolateral 7th rib fracture and L2 vertebral body compression fracture. L knee CT showed the following --> subtle acute nondisplaced fracture involving the tibial tuberosity, an acute nondisplaced intra-articular fracture of the mid patella and lateral patellar facet and a moderate-sized joint effusion. Dr. Valdivia [ortho spine surgery] saw and evaluated the patient --> L2 compression fracture is likely not acute. Recommended that the patient begin weightbearing as tolerate on the L knee but with a knee immobilizer in place (can be removed for hygiene/clothing changes). Patient was seen by ortho PA-C as well --> "X-ray and ct scan reviewed by Dr. Barnett. Her knee injuries can be treated nonoperatively. WBAT with knee immobilizer. No knee range of motion at this time. Follow-up in 1 month as outpatient." Continue IS Continue pain control, utilize topical lidocaine patches on the L knee and L chest wall. Scheduled tylenol Patient declines additional po analgesia PT/OT recommending inpatient rehab stay when able patient is medically stable for discharge Pending dispo to rehab #SIADH: Na levels stable. Continue salt tablets. Patient follows with [facility]. Continue fluid restriction of 1500mL/day Alternate labs #DM Type II: Home agents on hold, SSI regimen while inpatient. Continue to monitor BSG ACHS. Hgb A1c was 7.9% on 06/28/24. Okay for liberal control given age. #Cognitive Impairment: [facility], most recent visit with Dr. Alvin Aragon on 06/28/24. 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 Patient was alert + oriented to place, time and situation this morning. Pleasantly forgetful yet understands her diagnoses and reason for admission. Elevated blood pressure she is currently not on any antihypertensives suspect likely pain related as she typically is not elevated continue to monitor closely, she may need addition of low dose medication, like amlodipine or lisinopril if continues prn hydralazine for now, she is on NACL tabs which could be contributing Other Chronic Medical Conditions: Hypothyroidism, depression --> Continue home meds for these specific conditions. Liberalize diet from DMTII, add vegetarian DVT Prophylaxis: SQ Lovenox Code Status: FULL CODE PCP: Tabitha Hall MD Disposition: Admitted in Med/Surg - CM working on getting rehabilitation placement for the patient. Will need a 1-month follow-up appointment with [facility]. I spent a total of 38 minutes reviewing notes, outpatient records, labs, medication, coordinating, documenting and providing care for this patient excluding time spent in the performance of separately billed services. Admission and Anticipated Discharge Date Admission Date: June 30, 2024 Supervising Physician Co-Signing Physician Notes Pt noted to be awaiting placement. pt was not seen personally. Subjective She is hoping she can go to rehab soon. Denies f/c/s, chest pain, sob, n/v/d. She is having a lot of pain in left leg. Review of Systems Review of Systems: All systems reviewed & are unremarkable except as noted in HPI & below Physical Exam Physical Exam: Gen: Thin, petite, F, NAD, A&O x3 HEENT: Normocephalic, atraumatic, conjunctivae moist, sclerae anicteric, mucous membranes moist. Lung: Clear to Auscultation bilaterally, no wheezes/rales/rhonchi Heart: Regular rate, regular rhythm, no murmurs, rubs, or gallops Abdomen: Soft, NT, ND +BS x 4 Extremities: No RLE edema, LLE Immobilizer in place, trace LLE edema Skin: Warm, no rash, negative turgor. Results & Data Results & Data Vital Signs (Past 12 Hours) Vital Signs Temp Pulse Resp BP Pulse Ox O2 Del Method 07/07/24 07:55 36.6 C 85 16 149/90 H 96 Room Air 07/07/24 07:30 Room Air Medications Administered Current Inpatient Medications Acetaminophen (Acetaminophen 500 Mg Tab) 1,000 mg PO Q8H LOGAN Stop: 07/31/24 10:59 Last Admin: 07/07/24 02:42 Dose: Not Given Ascorbic Acid (Ascorbic Acid 500 Mg Tab) 500 mg PO DAILY LOGAN Stop: 07/31/24 08:59 Last Admin: 07/07/24 07:43 Dose: 500 mg Calcium/Vitamin D (Calcium 600mg + Vit D 400 Iu Tab) 1 tab PO DAILY LOGAN Stop: 07/31/24 08:59 Last Admin: 07/07/24 07:44 Dose: 1 tab Dextrose (Dextrose 50% 50 Ml Syringe) 25 - 50 ml IV UD PRN; Protocol PRN Reason: Hypoglycemia Protocol Stop: 07/30/24 17:38 Diclofenac Sodium (Diclofenac Sod 1% Gel 100 Gm Tube) 2 gm EXT Q6H PRN; Protocol PRN Reason: joint pain Stop: 08/03/24 22:05 Last Admin: 07/04/24 23:14 Dose: 2 gm Duloxetine HCl (Duloxetine Hcl 30 Mg Cap) 30 mg PO DAILY LOGAN Stop: 07/31/24 08:59 Last Admin: 07/07/24 07:43 Dose: 30 mg Duloxetine HCl (Duloxetine Hcl 60 Mg Cap) 60 mg PO DAILY LOGAN Stop: 07/31/24 08:59 Last Admin: 07/07/24 07:43 Dose: 60 mg Enoxaparin Sodium (Enoxaparin Inj 30 Mg/0.3 Ml Syr) 30 mg SQ HS LOGAN Stop: 07/30/24 20:59 Last Admin: 07/06/24 20:07 Dose: 30 mg Glucagon (Glucagon For Inj 1 Mg Vial) 1 mg SQ UD PRN; Protocol PRN Reason: Hypoglycemia Protocol Stop: 07/30/24 17:38 Glucose (Glucose 40% Gel 15 Gm Tube) 15 - 30 gm PO UD PRN; Protocol PRN Reason: Hypoglycemia Protocol Stop: 07/30/24 17:38 Glucose (Glucose 10 Tab/Tube) 4 - 8 tab PO UD PRN; Protocol PRN Reason: Hypoglycemia Treatment Stop: 07/30/24 17:38 Glucose (Glucose 40% Gel 15 Gm Tube) 15 - 30 gm PO UD PRN; Protocol PRN Reason: Hypoglycemia Protocol Stop: 07/30/24 18:15 Glucose (Glucose 10 Tab/Tube) 4 - 8 tab PO UD PRN; Protocol PRN Reason: Hypoglycemia Treatment Stop: 07/30/24 18:15 Hydralazine HCl (Hydralazine 10 Mg Tab) 10 mg PO Q6H PRN PRN Reason: SBP > 170 or DBP > 100 Stop: 07/30/24 17:59 Last Admin: 07/06/24 08:36 Dose: 10 mg Insulin Aspart (Insulin Aspart Per Unit Charge) 0 units SC ACHS [facility] Stop: 07/30/24 20:59 Last Admin: 07/07/24 08:35 Dose: 2 units Levothyroxine Sodium (Levothyroxine Sodium 25 Mcg Tablet) 25 mcg PO SuFrSa@0630 [facility] Stop: 08/01/24 06:29 Last Admin: 07/04/24 06:24 Dose: 25 mcg Levothyroxine Sodium (Levothyroxine Sodium 50 Mcg Tablet) 50 mcg PO MoTuWeTh@0630 [facility] Stop: 07/31/24 06:29 Last Admin: 07/07/24 05:24 Dose: 50 mcg Lidocaine (Lidocaine 5% 1 Patch) 2 patch TD QAM [facility] Stop: 07/30/24 18:14 Last Admin: 07/07/24 07:44 Dose: 2 patch Magnesium Oxide (Magnesium Oxide 400 Mg Tab) 400 mg PO QAM [facility] Stop: 07/31/24 15:29 Last Admin: 07/07/24 07:44 Dose: 400 mg Miscellaneous (Carbohydrates For Hypoglycemia ) 15 - 30 gm PO UD PRN PRN Reason: Hypoglycemia Protocol Stop: 07/30/24 17:38 Miscellaneous (Remove Lidoderm Patch) 2 each N/A DAILY@2100 [facility] Stop: 07/31/24 00:59 Last Admin: 07/06/24 20:11 Dose: 2 each Miscellaneous (Carbohydrates For Hypoglycemia ) 15 - 30 gm PO UD PRN PRN Reason: Hypoglycemia Protocol Stop: 07/30/24 18:15 Ondansetron HCl (Ondansetron Inj 2 Mg/Ml 2 Ml Vial) 4 mg IV Q6H PRN PRN Reason: Nausea Stop: 07/30/24 17:38 Polyethylene Glycol (Polyethylene (Miralax) 17 Gm Pack) 17 gm PO DAILY PRN PRN Reason: Constipation Stop: 07/30/24 17:38 Rosuvastatin Calcium (Rosuvastatin Calcium 5 Mg Tab) 5 mg PO DAILY LOGAN Stop: 07/31/24 08:59 Last Admin: 07/07/24 07:44 Dose: 5 mg Sodium Chloride (Sodium Chloride 1 Gm Tablet) 1 gm PO DAILY LOGAN Stop: 07/31/24 08:59 Last Admin: 07/07/24 07:43 Dose: 1 gm Travoprost (Travoprost Z 0.004% Oph Soln 2.5 Ml Btl) 1 drops OP QPM LOGAN Stop: 07/30/24 20:59 Last Admin: 07/06/24 20:12 Dose: 1 drops Vitamin D (Cholecalciferol 25 Mcg (1000 Units) Tab) 50 mcg PO DAILY LOGAN Stop: 07/31/24 08:59 Last Admin: 07/07/24 07:44 Dose: 50 mcg (1) Fall Encounter type: initial encounter Qualified Code(s): W19.XXXA - Unspecified fall, initial encounter
[2024-07-07] MEDS: POLYETHYLENE (MIRALAX) 17 GM PACK PO PRN (11:42)
[2024-07-07] MEDS: LIDOCAINE 5% 1 PATCH TD SCH (12:31)
--- NOTE | 2024-07-08 08:13 | Hospitalist Progress Note ---
Date of Service July 08, 2024 Assessment & Plan (1) Fall: (2) Multiple fractures: (3) Ambulatory dysfunction: Plan Lilibeth Hall is an 84y/o F with PMHx significant for DM type II, hypothyroidism, cognitive impairment, chronic hyponatremia secondary to SIADH, senile osteoporo sis, generalized osteoarthritis, DDD, glaucoma and depression who presented to the ED on 06/30/24 after sustaining a mechanical fall a few days ago. She had missed a step when walking at home and subsequently landed on her left side. She was complaining of left lateral neck pain, left rib pain as well as left knee pain on arrival. , 07/08/24: Patient is accepted at [facility] for placement tomorrow, insurance authorization request has been submitted per . Fall, Multiple Fractures Ambulatory Dysfunction: Head CT was negative. CTAP revealed an acute minimally displaced L posterolateral 7th rib fracture and L2 vertebral body compression fracture. L knee CT showed the following --> subtle acute nondisplaced fracture involving the tibial tuberosity, an acute nondisplaced intra-articular fracture of the mid patella and lateral patellar facet and a moderate-sized joint effusion. Dr. Valdivia saw and evaluated the patient --> L2 compression fracture is likely not acute. Recommended that the patient begin weightbearing as tolerate on the L knee but with a knee immobilizer in place (can be removed for hygiene/clothing changes). Patient was seen and evaluated by ortho as well --> "X-ray and ct scan reviewed by Dr. Barnett. Her knee injuries can be treated nonoperatively. WBAT with knee immobilizer. No knee range of motion at this time. Follow-up in 1 month as outpatient." Continue pain control, utilize topical lidocaine patches on the L knee and L chest wall. Scheduled po Tylenol. Patient denies need for any additional po analgesia. Continue incentive spirometry. PT/OT recommending inpatient rehabilitation stay. She is planning to be discharged to [facility] tomorrow. SIADH: Na level was stable. Continue salt tablets. Patient follows with [facility]. Continue fluid restriction of 1500mL/day. DM Type II: Home agents on hold, SSI regimen while inpatient. Continue to monitor BSG ACHS. Hgb A1c was 7.9% on 06/28/24. Okay for liberal control given her age. Cognitive Impairment: Follows with [facility], most recent visit with Dr. Alvin Aragon on 06/28/24. 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 Patient was alert + oriented to place, time and situation this morning. Pleasantly forgetful yet understands her diagnoses and reason for admission. Elevated Blood Pressure: She is not currently on any antihypertensives, suspect likely pain-related as she typically is not elevated. Continue to monitor closely, she may need addition of low dose medication, like amlodipine or lisinopril if continues. PRN hydralazine for now. She is on NACL tabs - which could be contributing. BP improved this morning, last hydralazine dose given on 07/06/24. Other Chronic Medical Conditions: Hypothyroidism, depression --> Continue home meds for these specific conditions. Liberalize diet from DM type II, add vegetarian. DVT Prophylaxis: SQ Lovenox Code Status: FULL CODE PCP: Tabitha Hall MD Disposition: Admitted in Med/Surg - Patient to be discharged to [facility]. Will need a 1-month follow-up appointment with [facility]. Patient seen in collaboration with Dr. Heath. Please see addendum. I spent a total of 35 minutes coordinating, documenting, and providing care for this patient excluding time spent in the performance of separately billed services. This included personally reviewing all current laboratories and imaging studies, medical reconciliation, outpatient chart review and discussion with specialists. This chart was completed in part utilizing Speech Voice Recognition Software. Grammatical errors, random word insertions, pronoun errors, and incomplete sentences are an occasional consequence of this system due to software limitations, ambient noise, and hardware issues. Any formal questions or concerns about the content, text, or information contained within the body of this dictation should be directly addressed to the provider for clarification. Admission and Anticipated Discharge Date Admission Date: June 30, 2024 Supervising Physician Co-Signing Physician Notes Pt awaiting placement. pt stable. d/w Kyung BAI. I have seen and examined the patient and have discussed the case with the provider above. I agree with the assessment and plan as stated. Subjective Patient was in the restroom getting herself washed up this morning with her nurse, Rose. She is hoping that she will get a rehabilitation placement soon. Ate her breakfast this morning without issue. Still having pain in her left leg. Denies any SOB, chest pain, N/V or abdominal pain. Encouraged her to keep taking Tylenol and to use lidocaine patches. She does not want any stronger pain medications at this time. Review of Systems Review of Systems: At least ten systems reviewed and negative, except as noted in the subjective section. Physical Exam Physical Exam: General: Very thin and petite, vitals as above, NAD, very pleasant, conversing appropriately. A+Ox3, euthymic affect. HEENT: Normocephalic, atraumatic. Normal inspection, PERRL, conjunctivae normal, anicteric sclerae, oropharynx normal. Respiratory: Normal respiratory effort, lungs clear to auscultation, no wheeze, rales, rhonchi. No accessory muscle use. Cardiovascular: Regular rate, rhythm, no murmur, normal peripheral pulses, no BLE edema. Vessels: No JVD. Abdomen/GI: Normal bowel sounds, soft, nontender, no hepatosplenomegaly. Extremities/Musculoskeletal: No cyanosis or clubbing, LLE immobilizer in place, L chest wall tenderness. Neurologic: EOMI, no focal deficits, CN's II-XI not formally tested but appear grossly intact bilaterally. Skin: No rashes, normal color, warm/dry. Results & Data Results & Data Vital Signs (Past 12 Hours) Vital Signs Temp Pulse Resp Pulse Ox O2 Del Method 07/07/24 20:52 36.6 C 92 H 21 96 Room Air (1) Fall Encounter type: initial encounter Qualified Code(s): W19.XXXA - Unspecified fall, initial encounter
[2024-07-08 14:40] LABS: Calcium 9.4 mg/dl (8.6-10.3); Creatinine Clr Calc Pharmacy 43.4 ml/min; Potassium 4.5 mmol/L (3.5-5.1)
[2024-07-09 07:24] VITALS: BP 162/83; RESP 18; TEMP 97.9; O2SAT 96
--- NOTE | 2024-07-09 08:50 | Discharge Summary ---
Discharge Summary Date of Service July 09, 2024 Principal Dx & Hospital Course #1 = Principal Diagnosis (1) Fall: (2) Multiple fractures: (3) Ambulatory dysfunction: Jason Hall is an 84y/o F with PMHx significant for DM type II, hypothyroidism, cognitive impairment, chronic hyponatremia secondary to SIADH, senile osteoporosis, generalized osteoarthritis, DDD, glaucoma and depression who presented to the ED on 06/30/24 after sustaining a mechanical fall a few days ago. She had missed a step when walking at home and subsequently landed on her left side. She was complaining of left lateral neck pain, left rib pain as well as left knee pain on arrival. Fall, Multiple Fractures Ambulatory Dysfunction: Head CT was negative. CTAP revealed an acute minimally displaced left posterolateral 7th rib fracture and L2 vertebral body compression fracture. Left knee CT showed the following: subtle acute nondisplaced fracture involving the tibial tuberosity, an acute nondisplaced intra-articular fracture of the mid patella and lateral patellar facet and a moderate-sized joint effusion. Patient was seen and evaluated by orthopedic spinal surgery. Her L2 compression fracture was ruled not likely to be acute and she was recommended to begin WBAT on the left knee but with an immobilizer in place. Patient was also seen and evaluated by orthopedic surgery who agreed that her injuries were non-operable. Once again recommended the patient WBAT on the left knee with a knee immobilizer in place. She will follow-up with [facility] in about 1 month. She is being discharged to [facility] for inpatient rehabilitation therapy. SIADH: Sodium level remained stable throughout her hospitalization. She can continue her salt tablets at time of discharge. She follows with [facility]. DM Type II: Hemoglobin A1c was 7.9% this admission. Can continue her home agents at time of discharge. Cognitive Impairment: Follows with [facility], most recent visit with Dr. Alvin Aragon on 06/28/24. 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 Patient was alert + oriented to place, time and situation throughout her admission with minimal delirious episodes. Elevated Blood Pressure: Had episodes of elevated BP during her admission, suspect likely pain-related as she typically is not elevated. Continued to monitor her closely with improvement in her BP. Utilized PRN oral hydralazine while she was admitted - only received 1 dose on 07/06/24. Likely her salt tablets are contributing to her elevated BP. This can be further discussed at her PCP follow-up appointment. No BP medications added at time of discharge. Other Chronic Medical Conditions: Hypothyroidism, depression --> Continue home meds for these specific conditions at time of discharge. PCP: Tabitha Hall MD Disposition: Patient is being discharged in stable condition to [facility] for rehabilitation services. 1-month follow-up appointment with [facility] to be scheduled. Patient seen in collaboration with Dr. Heath. Please see addendum. I spent a total of 50 minutes coordinating, documenting, and providing care for this patient excluding time spent in the performance of separately billed services. This included personally reviewing all current laboratories and imaging studies, medical reconciliation, outpatient chart review and discussion with specialists. This chart was completed in part utilizing Speech Voice Recognition Software. Grammatical errors, random word insertions, pronoun errors, and incomplete sentences are an occasional consequence of this system due to software limitations, ambient noise, and hardware issues. Any formal questions or concerns about the content, text, or information contained within the body of this dictation should be directly addressed to the provider for clarification. Notes For Next Care Provider Will need a 1-month follow-up appointment with [facility] to be scheduled. Patient will also need a follow-up appointment with her PCP scheduled as well. She follows with Dr. Tabitha Hall at [facility]. Medication Changes From Visit NO medication changes were made during her admission. Admission HPI Per Admitting Provider This is an 84 yr old F who has a significant PMH of T2DM, SIADH, hypothyroidism, senile osteoporosis, depression, glaucoma who presents to ED after sustaining a fall. She fell two days ago. She missed and step and fell on her L side. Since then she has been having pain in her left chest and left leg. She needed help getting off the floor. She lives by herself with caregivers. She denies hitting her head. Since the fall she has been having difficulty walking and having a lot of pain therefore she was brought to the ED. She has been mostly in bed. Admission Exam Per Admitting Provider General Appearance: Thin, frail, elderly, no apparent distress Head: normocephalic, Atraumatic Eyes: normal inspection, EOMI Neck: supple, Trachea midline Respiratory/Chest: Normal breath sounds, CTA, left rib tenderness, no accessory muscle use Cardiovascular: S1, S2, No murmur Abdomen/GI:Soft, Non tender, Bowel sounds present Extremities/Musculoskeletal:normal inspection, no edema Neurologic/Psych:AAOX3, grossly no focal neurological deficits Skin: normal color, warm Discharge Exam General: Very thin and petite, vitals as above, NAD, very pleasant, conversing appropriately. A+Ox3, euthymic affect. HEENT: Normocephalic, atraumatic. Normal inspection, PERRL, conjunctivae normal, anicteric sclerae, oropharynx normal. Respiratory: Normal respiratory effort, lungs clear to auscultation, no wheeze, rales, rhonchi. No accessory muscle use. Cardiovascular: Regular rate, rhythm, no murmur, normal peripheral pulses, no BLE edema. Vessels: No JVD. Abdomen/GI: Normal bowel sounds, soft, nontender, no hepatosplenomegaly. Extremities/Musculoskeletal: No cyanosis or clubbing, LLE immobilizer in place, L chest wall tenderness improving. Neurologic: EOMI, no focal deficits, CN's II-XI not formally tested but appear grossly intact bilaterally. Skin: No rashes, normal color, warm/dry. Updated Medication List Medication Instructions Recorded Confirmed Type ascorbic acid (vitamin C) 500 mg 500 mg PO DAILY 06/23/19 06/30/24 History tablet cholecalciferol (vitamin D3) 50 2,000 units PO DAILY 06/23/19 06/30/24 History mcg (2,000 unit) tablet travoprost 0.004 % eye drops 1 drops ophthalmic (eye) QPM #3 mL 06/23/19 06/30/24 History diclofenac sodium 1 % topical gel 1 ea topical QID PRN Other 08/07/20 06/30/24 History sodium chloride 1 gram tablet 1 g PO DAILY 10/02/20 06/30/24 History calcium 600 mg (as 1 tab PO DAILY 03/21/21 06/30/24 History carbonate)-vitamin D3 5 mcg (200 unit) tablet coenzyme Q10 100 mg capsule 100 mg PO DAILY 03/21/21 06/30/24 History (CoQ-10) duloxetine 60 mg capsule,delayed 60 mg PO DAILY 03/21/21 06/30/24 History release metformin 500 mg tablet,extended 1,000 mg PO UD 03/21/21 06/30/24 History release 24 hr B12 1 tab PO DAILY 09/25/23 06/30/24 History cyanocobalamin (vitamin B-12) 1,000 mcg IM MONTHLY 09/25/23 06/30/24 History 1,000 mcg/mL injection kit dulaglutide 0.75 mg/0.5 mL 0.75 mg subcut WK 09/25/23 06/30/24 History subcutaneous pen injector (Trulicity) iron glycinate,polysacch cmplx 1 tab PO . TUES,THURS,SAT 09/25/23 06/30/24 History magnesium 1 tab PO . MON,WED,Fri09/25/23 06/30/24 History rosuvastatin 5 mg tablet 5 mg PO UD 09/25/23 06/30/24 History duloxetine 30 mg capsule,delayed 30 mg PO DAILY 06/30/24 06/30/24 History release levothyroxine 25 mcg tablet 25 mcg PO UD 06/30/24 06/30/24 History (Synthroid) Hospital Stay Data Consultations 06/30/24 14:46 ED Decision to Admit Stat 06/30/24 15:09 Consult Orthopedic Spine Surgery Routine 06/30/24 15:09 Consult Orthopedic Surgery Routine Diagnostic Imagining Performed 06/30/24 11:50 CT abd pelvis IV con only Stat CT cervical spine wo con Stat CT chest diagnostic w con Stat CT head/brain wo con Stat CT lumbar spine w con Stat CT thoracic spine w con Stat 06/30/24 13:40 CT knee LT wo con Stat Pending Results Patient Have Any Pending Studies at Discharge: No Discharge Instructions Given to Patient (Per Discharging Provider) Lilibeth, You were admitted to the hospital after sustaining a fall at home and found to have the following injuries on presenting imaging: left seventh rib fracture, le ft tibial tuberosity fracture & left patellar fracture. You were seen and evaluated by orthopedic surgery. It was determined that your fractures could be managed conservatively without the need for surgical intervention. You were placed in a left knee immobilizer and instructed to weight-bear as tolerated on your left leg. You were also seen and evaluated by physical therapy and occupational therapy. You are being discharged to [facility] for inpatient rehabilitation services. A follow-up appointment in approximately 1 month with [facility] will be scheduled for you at [facility] [place]. Please continue to use [id number] Tylenol in addition to topical 4% lidocaine patches on both your left knee and left chest wall for pain control. Lidocaine patches can be found [id number] at multiple different shopping locations, including but not limited to [employer] and [employer]. Please continue to use your incentive spirometer at least 3 times a day in order to properly expand your lungs given your rib fracture as we have previously discussed. You can continue to weight-bear as tolerated on your left leg with your knee immobilizer in place. You may remove this immobilizer for hygiene purposes such as bathing or when you are getting dressed. Limit all range of motion of your left knee at this time until your orthopedic follow-up appointment in approximately 1 month. A follow-up appointment with your primary care doctor, Dr. Tabitha Hall, will also be arranged by Jackie Varghese at [place]. You m ay continue to take all of your other medications as previously prescribed. SEEK MEDICAL ATTENTION IF YOU HAVE: * temperature above 101F * chest pain or trouble breathing * abdominal pain, nausea, vomiting * diarrhea, dark stools or bloody stools * any unanswered questions or concerns Call 911 if symptoms are severe. Please take good care of yourself. It has been a pleasure taking care of you. If you have any questions regarding your recent hospitalization please contact [facility] and request [facility] Hospitalist @ [phone]. Total Time Total Time Spent Total Time Spent (In Minutes): 50 Supervising Physician Co-Signing Physician Notes Pt awaiting placement. pt stable. Pt to f/u w/ ortho and pcp on dc. d/w Kyung BAI. I have seen and examined the patient and have discussed the case with the provider above. I agree with the assessment and plan as stated.
[2024-07-09 13:30] VITALS: PULSE 87
--- NOTE | 2024-07-13 17:17 | Coding Query ---
To promote full compliance with coding requirements relating to patient care, physician participation is requested in all cases of him coder uncertainty. Please assist us with the question(s) below: Notes indicate: PMH of T2DM, SIADH, hypothyroidism, senile osteoporosis CT LLE: subtle acute nondisplaced mid patellar fracture. There is confirmation of the subtle acute nondisplaced fracture involving the anterior proximal tibial metaphysis/tibial tuberosity. CT [id number] minimally displaced left posterolateral 7th rib fracture.There is a chronic superior endplate compression deformity of L2 Demineralized appearance of the bones. Coding Question(s): According to coding guidelines "a code for osteoporotic fracture, and not a traumatic fracture, should be used for any patient with known osteoporosis who suffers a fracture, even if the patient had a minor fall or trauma, if that fall or trauma would not usually break a normal, healthy bone." Please indicate below the type of fracture: Physician's Response(s): ( ) Osteoporotic fracture of (Lt prox tibia, lt patella, lt 7 rib, compression L2) ( x ) Likely Traumatic fracture of (Lt prox tibia, lt patella, lt 7 rib, compression L2) ( ) Other, please specify Thank you, IGLESIA Garcia, [facility]
== END 2024-07-09 14:17 | DRG 563 ==
LOC: ED 11:35 → 3N 15:09 → SUATTDRO 15:09 → 3N 16:54

== ENCOUNTER 2024-11-16 14:10 | Inpatient (IN) ==
--- NOTE | 2024-11-16 15:22 | XRay Report ---
XR knee LT 3V HISTORY: 84 years-old Female Knee trauma, no prior imaging COMPARISON: 06/30/2024 TECHNIQUE: 3 views of the left knee FINDINGS: Small joint effusion. Moderate to severe tricompartmental osteoarthritis. Mild anteromedial soft tiss ue swelling. No acute fracture, dislocation or osseous erosion. Arterial calcifications. IMPRESSION: 1. Joint effusion without acute fracture or dislocation. 2. Moderate to severe osteoarthritis. ACT 112: Negative or not required by law. The above report was generated using voice recognition software. It may contain grammatical, syntax o r spelling errors. Electronically signed by: Gerhard Garcia M.D. 11/16/2024 3:21 PM
--- NOTE | 2024-11-16 15:27 | XRay Report ---
XR hip LT 2V w pelvis CLINICAL HISTORY: Left hip pain following fall. Evaluate for fracture. COMPARISON: Left hip radiographs May 20, 2022. FINDINGS: Sacroiliac joints and symphysis pubis are intact. There are no acute fractures within the pelvis or hips. A healed fracture of the greater trochanter of the left femur is present. Hip joint s paces are preserved. There are no osseous lesions. IMPRESSION: 1. No acute fractures within the pelvis or hips. 2. Healed fracture of the greater trochanter of the left femur. ACT 112: Negative or not required by law. Electronically signed by: Robert Amaral M.D. 11/16/2024 3:26 PM
--- NOTE | 2024-11-16 15:35 | XRay Report ---
XR tibia fibula LT 2V CLINICAL HISTORY: Lower leg trauma COMPARISON: Left knee radiographs August 12, 2024. Left knee CT June 30, 2024. Leg length study February 09, 2019. FINDINGS: There are no acute fractures within the left tibia or fibula. No osseous lesions are ident ified. Moderate to severe left osteoarthritis of the left knee is present. There is extensive vascula r calcification. There is plantar calcaneal spur. IMPRESSION: 1. No acute fractures within the left tibia or fibula. 2. Moderate to severe left knee osteoarthritis. ACT 112: Negative or not required by law. Electronically signed by: Robert Amaral M.D. 11/16/2024 3:32 PM
--- NOTE | 2024-11-16 18:54 | CT Scan Report ---
Exam: CT left hip without contrast Reason for exam: Fall Previous studies: None FINDINGS: No acute fracture or dislocation is seen at this time. Bony fragments are seen in the region of the greater trochanter which are well corticated and appear chronic suggesting previous trauma and/or greater trochanteric bursitis. No destructive lytic or blastic bony process is seen at this time. Degenerative changes of the symphysis pubis are present. IMPRESSION: 1. Negative for acute bony fracture at this time. 2. Chronic-appearing ossific bodies associated with the greater trochanter may indicate previous trauma and/or chronic calcific greater trochanteric bursitis. 3. Posttraumatic symptoms of pain referable to the hip or pelvis persist however, more sensitive evaluation with MRI study should be obtained, since subtle fractures may not be visible on radiographic studies. Electronically signed by Umair Doll 11-16-2024 6:54 PM
--- NOTE | 2024-11-16 19:44 | CT Scan Report ---
Exam: CT lumbar spine without contrast Reason for exam: Patient fell Previous studies: 06/30/2024 FINDINGS: There is a moderately severe compression fracture of L1 newly occurring since the previous study of 06/30/2024 and may relate to the current trauma. There is retropulsion of the posterior-superior fragment by approximately 5 mm causing anterior impression on the thecal sac at this level. Moderate compression fracture of L2 is stable with mild posterior retropulsion of the posterior-superior fragment at that level as well. The L3, L4 and L5 vertebral bodies are intact. There is desiccation of the intervertebral disks at all other levels. Degenerative facet arthropathy is seen. Additionally there is a contributory grade 2 spondylolisthesis of L5 on S1. These findings result in the moderate lateral recess and neural foraminal narrowings from the L2 through the S1 levels. There is generalized osteoporosis. Extensive degenerative disc and joint disease is seen in the lower thoracic spine as well. IMPRESSION: 1. Moderately severe compression fracture of L1, newly occurring since a previous study of 06/30/2024 may relate to the current trauma. There is approximately 5 mm retropulsion with the impression on the thecal sac of the posterior superior fragment at this level. 2. Stable compression fracture of L2. 3. Stable spondylolisthesis of L5 on S1. 4. Stable extensive degenerative disc and joint disease with the elements of lateral recess and neural foraminal stenosis. 5. MRI study recommended for better evaluation of the chronicity of the fractures and the effects on the thecal sac, spinal cord and neural elements. Electronically signed by Umair Doll 11-16-2024 7:43 PM
--- NOTE | 2024-11-16 20:54 | History & Physical Report ---
History of Present Illness Chief Complaint: Entered in error Primary Care Provider: Tabitha Hall MD Allergies Allergy/AdvReac Type Severity Reaction Status Date / Time salicylates Allergy Severe HIVES Verified 11/16/24 21:36 monosodium glutamate Allergy Mild Unknown Verified 11/16/24 21:36 Penicillins Allergy Mild Unknown Verified 11/16/24 21:36 Sulfa (Sulfonamide Allergy Mild Unknown Verified 11/16/24 21:36 Antibiotics) alendronate sodium Allergy Unknown UNKNOWN Verified 02/16/24 08:15 aspirin Allergy Unknown Hives Verified 11/16/24 21:36 Home Medications Medication Instructions Recorded Confirmed Type ascorbic acid (vitamin C) 500 mg 500 mg PO DAILY 06/23/19 11/16/24 History tablet cholecalciferol (vitamin D3) 50 2,000 units PO QAM 06/23/19 11/16/24 History mcg (2,000 unit) tablet travoprost 0.004 % eye drops 1 drops OPB HS #3 mL 06/23/19 11/16/24 History diclofenac sodium 1 % topical gel 4 g topical TID PRN Other 08/07/20 11/16/24 History sodium chloride 1 gram tablet 1 g PO DAILY 10/02/20 11/16/24 History coenzyme Q10 100 mg capsule 100 mg PO DAILY 03/21/21 11/16/24 History (CoQ-10) duloxetine 60 mg capsule,delayed 60 mg PO DAILY 03/21/21 11/16/24 History release metformin 500 mg tablet,extended 500 mg PO BID 03/21/21 11/16/24 History release 24 hr cyanocobalamin (vitamin B-12) 1,000 mcg IM MONTHLY 09/25/23 11/16/24 History 1,000 mcg/mL injection kit dulaglutide 0.75 mg/0.5 mL 0.75 mg subcut .ON HOLD 09/25/23 11/16/24 History subcutaneous pen injector (Trulicity) rosuvastatin 5 mg tablet 5 mg PO 3XWK 09/25/23 11/16/24 History duloxetine 30 mg capsule,delayed 30 mg PO DAILY 06/30/24 11/16/24 History release Iron Glycinate Oral Capsule 28 mg PO 3XWK 11/16/24 11/16/24 History acetaminophen 325 mg tablet 650 mg PO Q4 PRN Pain 11/16/24 11/16/24 History acetaminophen 325 mg tablet 650 mg PO Q4 PRN TEMP 100F OR ABOVE 11/16/24 11/16/24 History calcium 500 mg (as 1 tab PO DAILY 11/16/24 11/16/24 History carbonate)-vitamin D3 5 mcg (200 unit) tablet cyanocobalamin (vitamin B-12) 100 100 mcg PO DAILY 11/16/24 11/16/24 History mcg tablet (Vitamin B-12) diclofenac sodium 1 % topical gel 2 g topical Q6 PRN Pain 11/16/24 11/16/24 History diclofenac sodium 1 % topical gel 2 g topical TID 32GM/24HR 11/16/24 11/16/24 History hydrocortisone 1 % topical cream 1 applic topical Q12 PRN BLE FOR 11/16/24 11/16/24 History ITCHING levothyroxine 25 mcg tablet 25 mcg PO 3XWK 11/16/24 11/16/24 History levothyroxine 50 mcg tablet 50 mcg PO 4XWK 11/16/24 11/16/24 History magnesium 250 mg tablet 250 mg PO 3XWK 11/16/24 11/16/24 History Past Med/Surg History Problem List (Updated 11/16/24 @ 22:07 by Alvin Posadas DO) Abdominal distension Loss of consciousness Acute hyponatremia (Acute) Laceration of scalp (Acute) Acute head trauma (Acute) Weakness (Acute) Right rotator cuff tear Degenerative arthritis of knee, bilateral Contusion of left knee Left knee DJD Fracture of metacarpal of left hand, closed Right rotator cuff tear arthropathy Gait disturbance Bilateral primary osteoarthritis of knee Closed fracture of greater trochanter of left femur (Acute) Dementia Dementia Chronic hyponatremia Recurrent falls Multiple rib fractures (Acute) COVID-19 (Acute) Type 2 diabetes mellitus Cervical spinal stenosis Cervical radiculopathy HTN (hypertension) Osteoarthritis of knees, bilateral Hypothyroid (Chronic) Vitamin B12 deficiency Carotid artery plaque (Acute) 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) Spondylolisthesis, acquired (Acute) Skin abnormality (Acute) Osteoporosis (Acute) Glaucoma (Acute) Esophageal reflux (Acute) Dyslipidemia (Acute) Disc degeneration, lumbosacral (Acute) Medical History DVT prophylaxis Thrombocytosis Hypochloremia Acute hyponatremia Unsteady gait Signs and symptoms involving cognition Numbness of left foot Colon cancer screening Surgical History History of tubal ligation Family History Sister Breast cancer Father Myocardial infarction Other No pertinent family history Denies family history of Colon cancer Ovarian cancer Prostate cancer Social History Smoking Status: Never smoker Second Hand Exposure: No; Do You Dip or Chew Tobacco: No; Hx Alcohol Use: No Hx Substance Use: No Preferred Language: Setswana Communication Ability: Effective Visual Impairment: No Limitations Hearing Ability: Normal Director Of Housing Required: No Beliefs That Will Affect Care: None marital status: Current Living Situation: Spouse Current Living Situation Comment: HOME HEALTH AIDE Feels Safe at Home: Yes Seatbelt Use: always Assistive Devices: Cane and Walker Results & Data Results & Data Vital Signs (Past 12 Hours) Vital Signs Temp Pulse Pulse Resp BP BP Pulse Ox 11/16/24 18:28 86 11/16/24 16:32 88 19 150/80 H 11/16/24 14:39 96 H 11/16/24 14:16 37 C 98 H 22 179/93 H 96 O2 Del Method 11/16/24 18:28 11/16/24 16:32 11/16/24 14:39 11/16/24 14:16 Room Air Diagnostic Findings
--- NOTE | 2024-11-16 21:45 | History & Physical Report ---
Date of Service November 16, 2024 Assessment & Plan (1) Recurrent falls: Plan: Will consult PT and OT Case management consult (2) Compression fx, lumbar spine: Plan: New L1 compression fracture-->approximately 5 mm retropulsion with the impression on the thecal sac of the posterior superior fragment at this level Consult spine surgery May be a candidate for kyphoplasty PT and OT consult (3) Gait disturbance: Plan: PT and OT consults to try to get her back to her baseline status (4) Type 2 diabetes mellitus with albuminuria: Plan: Sliding scale insulin Last hemoglobin A1c was 7.7 on 09/26/2023 per our records Carb counting diet (5) Hypothyroid: Plan: Continue thyroid replacement medication Last TSH on file was normal at 2.9 on 09/25/2023 (6) Abdominal distension: Plan: Will get CT of the abdomen Plan Patient is a DNR/DNI VTE prophylaxis: Heparin History of Present Illness Chief Complaint: Fall at [facility], back and hip pain Primary Care Provider: MD Lilibeth Collazo is an 84y/o F with a prior history significant for DM type II, hypothyroidism, cognitive impairment, chronic hyponatremia secondary to SIADH, senile osteoporosis, generalized osteoarthritis, DDD, glaucoma and depression who presents to the ED tonight after sustaining an unwitnessed fall at [facility] this evening. She complains mainly of back pain but some hip pain as well. Workup in the ED reveals a new L1 compression fracture. There is no evidence of a new hip fracture. 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 She ambulates usually with a walker. [facility] has no beds on the skilled side until possibly tomorrow. Patient's pain is controlled at present. She does complain of some abdominal distention which is new. She denies nausea, vomiting or diarrhea. Last BM was normal was yesterday. She denies hematochezia. She denies dysuria. Allergies Allergy/AdvReac Type Severity Reaction Status Date / Time salicylates Allergy Severe HIVES Verified 11/16/24 21:36 monosodium glutamate Allergy Mild Unknown Verified 11/16/24 21:36 Penicillins Allergy Mild Unknown Verified 11/16/24 21:36 Sulfa (Sulfonamide Allergy Mild Unknown Verified 11/16/24 21:36 Antibiotics) alendronate sodium Allergy Unknown UNKNOWN Verified 02/16/24 08:15 aspirin Allergy Unknown Hives Verified 11/16/24 21:36 Home Medications Medication Instructions Recorded Confirmed Type ascorbic acid (vitamin C) 500 mg 500 mg PO DAILY 06/23/19 11/16/24 History tablet cholecalciferol (vitamin D3) 50 2,000 units PO QAM 06/23/19 11/16/24 History mcg (2,000 unit) tablet travoprost 0.004 % eye drops 1 drops OPB HS #3 mL 06/23/19 11/16/24 History diclofenac sodium 1 % topical gel 4 g topical TID PRN Other 08/07/20 11/16/24 History sodium chloride 1 gram tablet 1 g PO DAILY 10/02/20 11/16/24 History coenzyme Q10 100 mg capsule 100 mg PO DAILY 03/21/21 11/16/24 History (CoQ-10) duloxetine 60 mg capsule,delayed 60 mg PO DAILY 03/21/21 11/16/24 History release metformin 500 mg tablet,extended 500 mg PO BID 03/21/21 11/16/24 History release 24 hr cyanocobalamin (vitamin B-12) 1,000 mcg IM MONTHLY 09/25/23 11/16/24 History 1,000 mcg/mL injection kit dulaglutide 0.75 mg/0.5 mL 0.75 mg subcut .ON HOLD 09/25/23 11/16/24 History subcutaneous pen injector (Trulicity) rosuvastatin 5 mg tablet 5 mg PO 3XWK 09/25/23 11/16/24 History duloxetine 30 mg capsule,delayed 30 mg PO DAILY 06/30/24 11/16/24 History release Iron Glycinate Oral Capsule 28 mg PO 3XWK 11/16/24 11/16/24 History acetaminophen 325 mg tablet 650 mg PO Q4 PRN Pain 11/16/24 11/16/24 History acetaminophen 325 mg tablet 650 mg PO Q4 PRN TEMP 100F OR ABOVE 11/16/24 11/16/24 History calcium 500 mg (as 1 tab PO DAILY 11/16/24 11/16/24 History carbonate)-vitamin D3 5 mcg (200 unit) tablet cyanocobalamin (vitamin B-12) 100 100 mcg PO DAILY 11/16/24 11/16/24 History mcg tablet (Vitamin B-12) diclofenac sodium 1 % topical gel 2 g topical Q6 PRN Pain 11/16/24 11/16/24 History diclofenac sodium 1 % topical gel 2 g topical TID 32GM/24HR 11/16/24 11/16/24 History hydrocortisone 1 % topical cream 1 applic topical Q12 PRN BLE FOR 11/16/24 11/16/24 History ITCHING levothyroxine 25 mcg tablet 25 mcg PO 3XWK 11/16/24 11/16/24 History levothyroxine 50 mcg tablet 50 mcg PO 4XWK 11/16/24 11/16/24 History magnesium 250 mg tablet 250 mg PO 3XWK 11/16/24 11/16/24 History Past Med/Surg History Problem List (Updated 11/16/24 @ 22:07 by Alvin Posadas DO) Abdominal distension Loss of consciousness Acute hyponatremia (Acute) Laceration of scalp (Acute) Acute head trauma (Acute) Weakness (Acute) Right rotator cuff tear Degenerative arthritis of knee, bilateral Contusion of left knee Left knee DJD Fracture of metacarpal of left hand, closed Right rotator cuff tear arthropathy Gait disturbance Bilateral primary osteoarthritis of knee Closed fracture of greater trochanter of left femur (Acute) Dementia Dementia Chronic hyponatremia Recurrent falls Multiple rib fractures (Acute) COVID-19 (Acute) Type 2 diabetes mellitus Cervical spinal stenosis Cervical radiculopathy HTN (hypertension) Osteoarthritis of knees, bilateral Hypothyroid (Chronic) Vitamin B12 deficiency Carotid artery plaque (Acute) 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) Spondylolisthesis, acquired (Acute) Skin abnormality (Acute) Osteoporosis (Acute) Glaucoma (Acute) Esophageal reflux (Acute) Dyslipidemia (Acute) Disc degeneration, lumbosacral (Acute) Medical History DVT prophylaxis Thrombocytosis Hypochloremia Acute hyponatremia Unsteady gait Signs and symptoms involving cognition Numbness of left foot Colon cancer screening Surgical History History of tubal ligation Family History Sister Breast cancer Father Myocardial infarction Other No pertinent family history Denies family history of Colon cancer Ovarian cancer Prostate cancer Social History Smoking Status: Never smoker Second Hand Exposure: No; Do You Dip or Chew Tobacco: No; Hx Alcohol Use: No Hx Substance Use: No Preferred Language: Swiss Communication Ability: Effective Visual Impairment: No Limitations Hearing Ability: Normal Knitter Hand Required: No Beliefs That Will Affect Care: None marital status: Current Living Situation: Spouse Current Living Situation Comment: HOME HEALTH AIDE Feels Safe at Home: Yes Seatbelt Use: always Assistive Devices: Cane and Walker Review of Systems Review of Systems: Constitutional- no fever; no weight loss Eyes- no acute visual changes ENT- no sinus drainage; no pharyngitis Pulmonary- no cough, no wheezing, no shortness of breath Cardiac- no chest pain, no palpitations, no orthopnea, no dependent edema GI-mild abdominal distention, no nausea, no vomiting, no diarrhea, no melena, no hematochezia - no dysuria, no hematuria Musculoskeletal-low back pain Derm- no rashes, no new skin lesions, no changing skin lesions Hematologic- no unusual bruising, no unusual bleeding Lymphatics- no adenopathy Neuro- no headaches, no focal neurologic symptoms Physical Exam Physical Exam: General- adult elderly female seen at bedside in the ED, chronic ill appearance Head- atraumatic Eyes- PERRL, EOMI, anicteric ENT- oropharynx clear Neck- supple, no JVD, no adenopathy, no thyromegaly; carotids +2/2, no bruits appreciated Lungs- clear to auscultation and percussion Heart- regular rhythm; no murmur, no gallop, no rub appreciated Abdomen- normal bowel sounds, soft, nontender, no masses or hepatosplenomegaly, mildly distended Extremities- no pretibial edema, no calf tenderness; peripheral pulses intact Neuro- alert, oriented x 3; PERRL, EOMI; no facial palsy; no dysarthria; motor 5/5 bilaterally Musculoskeletal: Tender along the paraspinous musculature and along the lower spine Skin- warm & dry Results & Data Results & Data Vital Signs (Past 12 Hours) Vital Signs Temp Pulse Pulse Resp BP BP Pulse Ox 11/16/24 18:28 86 11/16/24 16:32 88 19 150/80 H 11/16/24 14:39 96 H 11/16/24 14:16 37 C 98 H 22 179/93 H 96 O2 Del Method 11/16/24 18:28 11/16/24 16:32 11/16/24 14:39 11/16/24 14:16 Room Air Diagnostic Findings Laboratory Results WBC 13.43 K/ul (4.8-10.8) H 11/16/24 21:34 RBC 4.02 M/uL (4.20-5.40) L 11/16/24 21:34 Hgb 11.4 g/dl (12.0-16.0) L 11/16/24 21:34 Hct 33.3 % (37.0-47.0) L 11/16/24 21:34 MCV 82.8 fL (80.0-100.0) 11/16/24 21:34 MCH 28.4 pg (25.0-34.0) 11/16/24 21:34 MCHC 34.2 g/dL (32.0-36.0) 11/16/24 21:34 RDW Std Deviation 38.6 fL (36.4-46.3) 11/16/24 21:34 RDW Coeff of Maddie 12.9 % (11.5-14.5) 11/16/24 21:34 Plt Count 315 K/uL (130-400) 11/16/24 21:34 MPV 9.1 fL (9.4-12.4) L 11/16/24 21:34 Impressions Hip/Pelvis X-Ray 11/16/24 14:27 XR hip LT 2V w pelvis CLINICAL HISTORY: Left hip pain following fall. Evaluate for fracture. COMPARISON: Left hip radiographs May 20, 2022. FINDINGS: Sacroiliac joints and symphysis pubis are intact. There are no acute fractures within the pelvis or hips. A healed fracture of the greater trochanter of the left femur is present. Hip joint spaces are preserved. There are no osseous lesions. IMPRESSION: 1. No acute fractures within the pelvis or hips. 2. Healed fracture of the greater trochanter of the left femur. ACT 112: Negative or not required by law. Electronically signed by: Robert Amaral M.D. 11/16/2024 3:26 PM Knee X-Ray 11/16/24 14:27 XR knee LT 3V HISTORY: 84 years-old Female Knee trauma, no prior imaging COMPARISON: 06/30/2024 TECHNIQUE: 3 views of the left knee FINDINGS: Small joint effusion. Moderate to severe tricompartmental osteoarthritis. Mild anteromedial soft tissue swelling. No acute fracture, dislocation or osseous erosion. Arterial calcifications. IMPRESSION: 1. Joint effusion without acute fracture or dislocation. 2. Moderate to severe osteoarthritis. ACT 112: Negative or not required by law. The above report was generated using voice recognition software. It may contain grammatical, syntax or spelling errors. Electronically signed by: Gerhard Garcia M.D. 11/16/2024 3:21 PM Tibia/Fibula X-Ray 11/16/24 14:27 XR tibia fibula LT 2V CLINICAL HISTORY: Lower leg trauma COMPARISON: Left knee radiographs August 12, 2024. Left knee CT June 30, 2024. Leg length study February 09, 2019. FINDINGS: There are no acute fractures within the left tibia or fibula. No osseous lesions are identified. Moderate to severe left osteoarthritis of the left knee is present. There is extensive vascular calcification. There is plantar calcaneal spur. IMPRESSION: 1. No acute fractures within the left tibia or fibula. 2. Moderate to severe left knee osteoarthritis. ACT 112: Negative or not required by law. Electronically signed by: Robert Amaral M.D. 11/16/2024 3:[address] 11/16/24 17:29 Exam: CT left hip without contrast Reason for exam: Fall Previous studies: None FINDINGS: No acute fracture or dislocation is seen at this time. Bony fragments are seen in the region of the greater trochanter which are well corticated and appear chronic suggesting previous trauma and/or greater trochanteric bursitis. No destructive lytic or blastic bony process is seen at this time. Degenerative changes of the symphysis pubis are present. IMPRESSION: 1. Negative for acute bony fracture at this time. 2. Chronic-appearing ossific bodies associated with the greater trochanter may indicate previous trauma and/or chronic calcific greater trochanteric bursitis. 3. Posttraumatic symptoms of pain referable to the hip or pelvis persist however, more sensitive evaluation with MRI study should be obtained, since subtle fractures may not be visible on radiographic studies. Electronically signed by Umair Doll 11-16-2024 6:[address] 11/16/24 17:29 Exam: CT lumbar spine without contrast Reason for exam: Patient fell Previous studies: 06/30/2024 FINDINGS: There is a moderately severe compression fracture of L1 newly occurring since the previous study of 06/30/2024 and may relate to the current trauma. There is retropulsion of the posterior-superior fragment by approximately 5 mm causing anterior impression on the thecal sac at this level. Moderate compression fracture of L2 is stable with mild posterior retropulsion of the posterior-superior fragment at that level as well. The L3, L4 and L5 vertebral bodies are intact. There is desiccation of the intervertebral disks at all other levels. Degenerative facet arthropathy is seen. Additionally there is a contributory grade 2 spondylolisthesis of L5 on S1. These findings result in the moderate lateral recess and neural foraminal narrowings from the L2 through the S1 levels. There is generalized osteoporosis. Extensive degenerative disc and joint disease is seen in the lower thoracic spine as well. IMPRESSION: 1. Moderately severe compression fracture of L1, newly occurring since a previous study of 06/30/2024 may relate to the current trauma. There is approximately 5 mm retropulsion with the impression on the thecal sac of the posterior superior fragment at this level. 2. Stable compression fracture of L2. 3. Stable spondylolisthesis of L5 on S1. 4. Stable extensive degenerative disc and joint disease with the elements of lateral recess and neural foraminal stenosis. 5. MRI study recommended for better evaluation of the chronicity of the fractures and the effects on the thecal sac, spinal cord and neural elements. Electronically signed by Umair Doll 11-16-2024 7:43 PM
[2024-11-16 22:00] LABS: Hematocrit (blood only) 33.3 % (37.0-47.0); Hemoglobin 11.4 g/dl (12.0-16.0); Mean Corpuscular Hemoglobin 28.4 pg (25.0-34.0); Mean Corpuscular Hgb Conc 34.2 g/dL (32.0-36.0); Mean Corpuscular Volume 82.8 fL (80.0-100.0); Mean Platelet Volume 9.1 fL (9.4-12.4); Platelet Count 315 K/uL (130-400); RDW Coefficient of Variation 12.9 % (11.5-14.5); RDW Standard Deviation 38.6 fL (36.4-46.3); Red Blood Count 4.02 M/uL (4.20-5.40); White Blood Count 13.43 K/ul (4.8-10.8)
[2024-11-16 22:09] LABS: Albumin Globulin Ratio 1.6 (0.9-2); Albumin Level 4.2 gm/dl (3.4-5.0); BUN Creatinine Ratio 24.1 (10-20); Bilirubin,Total 0.9 mg/dl (0.2-1.0); Calcium 9.1 mg/dl (8.6-10.3); Creatinine Clr Calc Pharmacy 52.3 ml/min; Globulin 2.7 gm/dl (2.5-4.0); Potassium 4.5 mmol/L (3.5-5.1); Total Protein 6.9 gm/dl (6.0-8.3)
[2024-11-16] MEDS ORDERED: GLUCOSE 40% GEL 15 GM TUBE PO PRN (23:53)
[2024-11-16] MEDS ORDERED: DEXTROSE 50% 50 ML SYRINGE IV PRN (23:53)
[2024-11-16] MEDS ORDERED: GLUCAGON FOR INJ 1 MG VIAL SQ PRN (23:53)
[2024-11-16] MEDS ORDERED: GLUCOSE 10 TAB/TUBE PO PRN (23:53)
[2024-11-16] MEDS ORDERED: IRON GLYCINATE 28 MG PO SCH (23:53)
[2024-11-16] MEDS ORDERED: CARBOHYDRATES FOR HYPOGLYCEMIA PO PRN (23:53)
[2024-11-16] MEDS ORDERED: oxyCODONE HCL IR 5 MG TAB (IMMEDIATE RELEASE) PO PRN (23:53)
[2024-11-17] MEDS ORDERED: HYDROCORTISONE 1% CRM 30 GM TUBE EXT PRN (00:11)
[2024-11-17] MEDS: hydrALAZINE HCL 20 MG/ML VIAL IV ONE (00:23)
[2024-11-17 00:29] LABS: Thyroid Stimulating Hormone 2.157 uIu/ml (0.300-4.500)
--- OUTSIDE RECORDS SUMMARY | 2024-11-17 01:02 | External Medical Summary | Summary of Care ---
Author Name Unknown Organization [facility] Address [address] [place] [address] Phone [phone] Care Team Providers Care Busser Name Role Phone Tabitha Hall MD Primary Care Provider + Reason for Referral * Evaluate & Treat - Unlimited Visits (Within 10 days (routine)) - Authorized Specialty Diagnoses / Procedures Referred By Michael awad Referred To Contact Physical Therapy / Physical Medicine And Rehab Diagnoses Balance disorder Multiple falls Tabitha Hall MD [address] [place] [address] Phone: tel: fax: Referral ID Status Reason Start Date Expiration Date Visits Requested Visits Authorized [id number] Authorized Specialty Services Required 11/10/2024 [id number] Question Answer Referral Priority Within 10 days (routine) Where should this appointment be scheduled? [facility] Comments Please eval for balance issues, frequent falls. Thanks. * (Within 10 days (routine)) - Authorized Specialty Diagnoses / Procedures Referred By Michael awad Referred To Contact Radiology Diagnoses Abdominal distension Procedures US ABDOMEN COMPLETE Tabitha Hall MD [address] [place] [address] Phone: tel: fax: Referral ID Status Reason Start Date Expiration Date V isits Requested Visits Authorized [id number] Authorized 11/10/[phone] Reason for Visit * Reason Comments Re-Check Encounter Details Date Type Department Care Team (Latest Contact Info) Description 11/10/2024 11:00 AM EST Office Visit General Internal Medicine [facility] [address] [facility] [place] [id number] Tabitha Hall MD [address] [facility] [place] [id number] Controlled type 2 diabetes mellitus with hyperglycemia, without long-term current use of insulin ([facility])*; DM (diabetes mellitus), type 2, uncontrolled, with hyperosmolarity ([facility]); Balance disorder; Multiple falls; Senile osteoporosis; Generalized OA; Cognitive impairment; Malaise and fatigue; Abdominal distension; Dizziness; Encounter for long-term (current) use of medications; Recurrent major depressive disorder, in partial remission ([facility]); Acquired hypothyroidism Allergies Active Allergy Reactions Criticality Noted Date Comments Ibuprofen 06/11/2016 Alendronate Sodium 08/13/2016 Celecoxib Nausea/vomiting 12/22/2013 Cheese Flavoring Agent (Non-Screening) 08/27/2013 Monosodium Glutamate 08/13/2016 Penicillin G 06/11/2016 Salicylates Unknown 05/17/2021 Sulfa Antibiotics 06/11/2016 documented as of this encounter (statuses as of 11/16/2024) Medications BD Insulin Syringe 25G X 5/8" 1 ML (Insulin Syringe-Needle U-100)Indications: Controlled type 2 diabetes mellitus with hyperglycemia, without long-term current use of insulin ([facility]),Type 2 diabetes mellitus with hemoglobin A1c goal of less than 8.0% ([facility]) Use to inject B-12 injection once a month. 10 Each 1 022 Active FreeStyle French 3 Palmer DeviceIndications: DM (diabetes mellitus), type 2, uncontrolled, with hyperosmolarity ([facility]) Use as directed. 1 Each 024 Active FreeStyle French 3 Plus SensorIndications: DM (diabetes mellitus), type 2, uncontrolled, with hyperosmolarity (HCC) Change sensor every 15 days. 2 Each 024 Active Tylenol 325 MG Oral Capsule (Acetaminophen) Take by mouth. Active Magnesium Hydroxide 400 MG/5ML Oral Suspension (Mom) Take by mouth daily as needed for Constipation. Active Hydrocortisone 1 % External Cream Apply topically to affected area 2 times a day. Active Cyanocobalamin 1000 MCG/ML Injection Solution (Cyanocobalamin)In dications:B12 deficiency Inject 1 mL into a large muscle every 30 days. 1 mL 11 Active Rosuvastatin Calcium 5 MG Oral Tablet (Crestor)Indicatio ns:Hyperlipidemia with target LDL less than 100,Hyperlipidemia , unspecified hyperlipidemia type Take 1 Tablet by mouth once a day on Friday, Friday, and Friday only. 12 Tablet 2 025 Active BD SafetyGlide Needle 25G X 1" (Needle (Disp)) Use for vitamin b12 injections monthly. 12 Each 025 Active Calcium Carbonate-Vitamin D 500-5 MG-MCG Oral TabletIndications: Age-related osteoporosis with current pathological fracture with routine healing, subsequent encounter Take 1 Tablet by mouth in the morning. 30 Tablet 025 Active Diclofenac Sodium 1 % External Gel (Voltaren)Indicati ons:Generalized OA Apply topically to affected area 3 times a day. Apply 2 gm to right shoulder 3x daily and 4 gm to low back 3x daily 350 g 025 Active Iron Glycinate 29 MG Oral CapsuleIndications :Controlled type 2 diabetes mellitus with hyperglycemia, without long-term current use of insulin (HCC) Take 1 Capsule by mouth once a day on Friday, , and Friday only. 12 Capsule 025 Active Levothyroxine Sodium 25 MCG Oral Tablet (Levoxyl)Indicatio ns:Acquired hypothyroidism Take by mouth: 2 pills once daily Friday to and take one pill Friday to Friday.(at least 30 min prior to breakfast or other meds) 90 Tablet 5 025 Active Vitamin B12 100 MCG Oral Tablet Take 1 Tablet by mouth in the morning. 30 Tablet 025 Active Sodium Chloride 1 GM Oral TabletIndications: SIADH (syndrome of inappropriate ADH production) ([facility]) Take 1 Tablet by mouth in the morning. 90 Tablet 3 Active Trulicity 0.75 MG/0.5ML Subcutaneous Solution Auto-injector (Dulaglutide)Indic ations:Controlled type 2 diabetes mellitus with hyperglycemia, without long-term current use of insulin ([facility]) Inject 0.75 mg under the skin once a week. 2 mL Active Travoprost (RENEA Free) 0.004 % Ophthalmic Solution (Travatan Z)Indications:Glau coma of both eyes, unspecified glaucoma type Instill 1 Drop into both eyes at bedtime. 1 daily 2.5 mL 2 025 Active metFORMIN HCl ER 500 MG Oral Tablet Extended Release 24 Hour (Glucophage XR)Indications:Con trolled type 2 diabetes mellitus with hyperglycemia, without long-term current use of insulin ([facility]) Take 1 Tablet by mouth 2 times a day with morning and evening meals. 180 Tablet Active DULoxetine HCl 60 MG Oral Capsule Delayed Release Particles (Cymbalta)Indicati ons:Generalized OA,Recurrent major depressive disorder, in partial remission (HCC) TAKE ONE CAPSULE BY MOUTH EVERY MORNING along with duloxetine 30 mg capsule ( total dose 90mg) ,DO NOT CUT, CRUSH, OR CHEW. Takes in evening 90 Capsule 025 Active DULoxetine HCl 30 MG Oral Capsule Delayed Release Particles (Cymbalta)Indicati ons:Generalized OA,Recurrent major depressive disorder, in partial remission (HCC) TAKE ONE CAPSULE BY MOUTH EVERY MORNING along with duloxetine 60 mg capsule ( total dose 90mg) ,DO NOT CUT, CRUSH, OR CHEW. Takes in evening 30 Capsule 025 Active CoQ10 100 MG Oral CapsuleIndications :Controlled type 2 diabetes mellitus with hyperglycemia, without long-term current use of insulin ([facility]) Take 1 Capsule by mouth in the morning. 30 Capsule 025 2024 Discontinued Cholecalciferol 50 MCG (1999) Oral TabletIndications: Age-related osteoporosis with current pathological fracture with routine healing, subsequent encounter Take 1 Tablet by mouth in the morning. 1 daily. 30 Tablet 025 2024 Discontinued Acetaminophen 325 MG Oral Tablet (Tylenol)Indicatio ns:Generalized OA Take 2 Tablets by mouth 3 times a day. 180 Tablet 025 2024 Discontinued Magnesium 250 MG Oral Tablet Take 1 Tablet by mouth once a day on Friday, Friday, and Friday only. 12 Tablet 025 2024 Discontinued Vitamin C 500 MG Oral Tablet (Ascorbic Acid)Indications:C ontrolled type 2 diabetes mellitus with hyperglycemia, without long-term current use of insulin (HCC) Take 1 Tablet by mouth in the morning. 30 Tablet 025 2024 Discontinued documented as of this encounter (statuses as of 11/16/2024) Active Problems Problem Noted Date Diagnosed Date DM (diabetes mellitus), type 2, uncontrolled, with hyperosmolarity 11/10/2024 Multiple falls 08/26/2024 Hyperlipidemia with target LDL less than 100 Balance disorder 08/26/2024 Cognitive impairment 07/13/2024 Closed fracture of rib of left side with routine healing 07/13/2024 Nondisplaced fracture of lef t tibial tuberosity, subsequent encounter for closed fracture with routine healing 07/13/2024 Closed nondisplaced fracture of left patella with routine healing 07/13/2024 Major depressive disorder in partial remission 0 10/24/2021 Controlled type 2 diabetes m ellitus with hyperglycemia, without long-term current use of insulin 08/17/2020 SIADH (syndrome of inappropriate ADH production) 08/17/2020 DDD (degenerative disc disease), cervical 2019 Senile osteoporosis Diabetes type 2, controlled Generalized OA Hypothyroidism Glaucoma DDD (degenerative disc disease), lumbosacral documented as of this encounter (statuses as of 11/16/2024) Resolved Problems Problem Noted Date Diagnosed Date Resolved Date DM (diabetes mellitus), type 2, uncontrolled, with hyperosmolarity 06/29/2024 07/13/2024 Dislocation closed, finger, subsequent encounter 09/06/2020 07/13/2024 documented as of this encounter (statuses as of 11/16/2024) Immunizations Name Administration Dates Next Due COVID-19 mRNA, LNP-s, No Pre serve, 2-Dose Series (Moderna) 06/25/2024,01/22/2022,06/25/2021,12/01,11/03/2020 COVID-19, mRNA, LNP-s, PF, B ooster, 100mcg/0.5mg (Moderna) 06/17/2022 Covid-19, Mrna, Lnp-s, Pf, B ivalent, 50 Mcg, IM, 12 yrs and above (Moderna) 02/21/2023 Pneumococcal Conjugate Vacc, 13 Valent (Prevnar) 03/21/2015 Pneumococcal Polysaccharide PPV23 (Pneumovax) 06/07/2021,01/07/2018 Seasonal Influenza Vac., MDV , IM, 0.5 mL (Fluzone) 08/07/2015 Seasonal Influenza Virus Vac cine, Unspecified Formulation 06/06/2020,07/29/2019,07/10/2018,07/17,07/13/2016,08/07/2015 Seasonal Influenza, High Dos e, Trivalent, PF, IM (Fluzone HD) 06/06/2020,07/29/2019 Seasonal Influenza, Quadriva lent Hd (Fluzone Hd) 06/25/2024,06/12/2023 Seasonal Influenza, Quadriva lent Hd, 65+ Yrs 07/24/2021 Seasonal Influenza, Quadriva lent, No Preserve, IM 07/06/2020 TDAP (age 10 and older)(Boostrix) 06/27/2023 TDAP, [...] money to get more. Never true 01/14/2023 Comments No Sex and Gender Information Value Date Recorded Sex Assigned at Female 08/17/2020 3:07 PM EST Legal Sex Female 5:56 AM EST Gender Identity Female 08/17/2020 3:07 PM EST Sexual Orientation Straight 08/17/2020 3: 07 PM EST documented as of this encounter Last Filed Vital Signs Vital Sign Reading Time Taken Comments Blood Pressure 138/80 11/10/2024 11:00 AM EST Pulse 103 11/10/2024 11:00 AM EST Temperature 36.4 C (97.6 F) 11/10/2024 11:[address] Respiratory Rate 14 11/10/2024 11:00 AM EST Oxygen Saturation 96% 11/10/2024 11:00 AM EST Inhaled Oxygen Concentration - - Weight 44.4 kg (97 lb 14.4 oz) 11/10/2024 11:00 AM EST Height 134.6 cm (4' 4.99") 11/10/2024 11:[address] Body Mass Index 24.51 11/10/2024 11:00 AM EST documented in this encounter Patient Instructions * Patient Instructions* Joleen Sandoval CMA - 11/10/2024 10:50 AM EST Diabetes: Keeping Feet Healthy Inspect your feet every day for signs of a problem. Diabetes can damage nerves in your feet and cause neuropathy. This condition makes it hard for you to feel injuries or sore spots. Diabetes can also change blood flow, making it harder for small problems, like a blister, to heal properly. In fact, minor injuries can quickly become serious infections that send you to the hospital. Practice self-care to protect your feet and keep them healthy. Take Special Care Inspect your feet daily for problems such as redness, blisters, cracks, dry skin, or numbness. Use a mirror to see the bottoms of your feet. Or, ask for help. Manage your diabetes. Monitor and control your blood sugar. Take all your medications as prescribed. Avoid walking barefoot, even indoors. Wash your feet with warm water and mild soap. Dry well, especially between toes. Dont treat corns or calluses yourself. Talk to your doctor or press reader (a doctor who specializes in foot care) if you need assistance trimming your toenails. Use moisturizing cream or lotion if you have dry skin, but dont use it between toes. Dont use heating pads on your feet. If you have neuropathy, you could get a burn and not feel it. Stop smoking. Smoking restricts blood flow and can make it harder for wounds to heal. Have Regular Checkups Foot problems can develop quickly. So be sure to follow your healthcare teams schedule for regular checkups. During office visits, take off your shoes and socks as soon as you get in the exam room. Ask your healthcare provider to examine your feet for problems. This will make it easier to find and treat small skin irritations before they get worse. Regular checkups can also help keep track of the blood flow and feeling in your feet. If you have neuropathy, you may need to have checkups more often. Wear Proper Footwear Wearing proper footwear is very important. If areas of your feet have been damaged by too much pressure, your healthcare provider may recommend changing your footwear. In some cases, avoiding high heels or tight work boots may be all thats needed. Or, your healthcare provider may recommend special shoes or custom inserts. These help protect your feet and keep existing irritations from getting worse. If you need special footwear, ask your healthcare provider if you qualify for [employer] diabetic shoe program. Make Sure Shoes and Socks Fit Any pair of shoes--new or old--should feel comfortable as soon as you put them on. There shouldnt be any rubbing when you walk. Wear the right shoe for any activity. For instance, a running shoe is designed to keep your feet injury-free while jogging. Buy shoes at the end of the day, when your feet are larger. Make sure they provide support without feeling too loose. Make sure your socks fit, t oo. Wear soft, seamless, well-padded socks for activity. Cotton or microfiber socks are best to help to absorb sweat. To protect your feet, avoid shoes that are open-toed or open-heeled. If you have questions about what kinds of shoes and socks are best, talk to your healthcare team. Get Regular Exercise Regular exercise improves blood flow in your feet. It also increases foot strength and flexibility.Gentle exercises, like walking or riding a stationary bicycle, are best. You can also do special foot exercises. Just be sure to talk with your healthcare provider before starting any exercise program. Also mention if any exercise causes pain, redness, or other signs of foot problems. Note: If you have any kind of break in the skin of your foot or ankle, keep the area clean. Then call your doctor--especially if the area doesnt appear to be healing. [id number] [employer] [facility], [address] [place] [address], [place] [address]. All rights reserved. This information is not intended as a substitute for professional medical care. Always follow your healthcare professional's instructions. documented in this encounter Progress Notes * Tabitha Hall MD - 11/10/2024 11:13 AM EST HPI: Lilibeth Kong is a 84 year old female with a history of type 2 diabetes mellitus, hypothyroidism, senile osteoporosis, disc degenerative disease, chronic lower back and neck pain, history of SIADH, goal is to keep the sodium 130 or above, history of left rib fracture, history of frequent falls, balanced disorder, stays at [facility], has been ambulating with walker and cane, history of cognitive impairment,, who presents with: Chief Complaint Patient presents with Re-Check Patient is here for the recheck. Chart reviewed with the patient including current meds, last labs and HM. No acute event since we saw patient last time including no recent fall or injuries. Feels dizzy off and on. Balance issues but no fall recently. Feels fatigue, tired. Discussed PT sessions but thinks she gets it done 2 to 3 times a week. Encouraged use of walker all the time. As per family and pt, abd is getting little enlarged. Some upper abd discomfort sometimes. No nausea, vomtting. Denies any chestpain/sob/palpitation/swealling in the legs. Denies any cough/sob/wheezing/chestpain. Appetite is good and weight is stable same as before in 08/29. States feels fine emotionally. No headache, vision changes, ear pain. Patient Active Problem List Diagnosis Senile osteoporosis Diabetes type 2, controlled (HCC) Generalized OA Hypothyroidism Glaucoma DDD (degenerative disc disease), lumbosacral DDD (degenerative disc disease), cervical Controlled type 2 diabetes mellitus with hyperglycemia, without long-term current use of insulin ([facility]) SIADH (syndrome of inappropriate ADH production) ([facility]) Major depressive disorder in partial remission ([facility]) Cognitive impairment Closed fracture of rib of left side with routine healing Nondisplaced fracture of left tibial tuberosity, subsequent encounter for closed fracture with routine healing Closed nondisplaced fracture of left patella with routine healing Multiple falls Hyperlipidemia with target LDL less than 100 Balance disorder DM (diabetes mellitus), type 2, uncontrolled, with hyperosmolarity ([facility]) Current Outpatient Medications Medication Sig Dispense Refill Magnesium Hydroxide 400 MG/5ML Oral Suspension (Mom) Take by mouth daily as needed for Constipation. Hydrocortisone 1 % External Cream Apply topically to affected area 2 times a day. Rosuvastatin Calcium 5 MG Oral Tablet (Crestor) Take 1 Tablet by mouth once a day on Friday, Friday, and Friday only. 12 Tablet 2 Acetaminophen 325 MG Oral Tablet (Tylenol) Take 2 Tablets by mouth 3 times a day. 180 Tablet 0 Iron Glycinate 29 MG Oral Capsule Take 1 Capsule by mouth once a day on Friday, , and Friday only. 12 Capsule 0 Levothyroxine Sodium 25 MCG Oral Tablet (Levoxyl) Take by mouth: 2 pills once daily Friday to and take one pill Friday to Friday.(at least 30 min prior to breakfast or other meds) 90 Tablet 5 Magnesium 250 MG Oral Tablet Take 1 Tablet by mouth once a day on Friday, Friday, and Friday only. 12 Tablet 0 Vitamin C 500 MG Oral Tablet (Ascorbic Acid) Take 1 Tablet by mouth in the morning. 30 Tablet 0 Vitamin B12 100 MCG Oral Tablet Take 1 Tablet by mouth in the morning. 30 Tablet 0 Sodium Chloride 1 GM Oral Tablet Take 1 Tablet by mouth in the morning. 90 Tablet 3 Trulicity 0.75 MG/0.5ML Subcutaneous Solution Auto-injector (Dulaglutide) Inject 0.75 mg under the skin once a week. 2 mL 5 Travoprost (RENEA Free) 0.004 % Ophthalmic Solution (Travatan Z) Instill 1 Drop into both eyes at bedtime. 1 daily 2.5 mL 2 metFORMIN HCl ER 500 MG Oral Tablet Extended Release 24 Hour (Glucophage XR) Take 1 Tablet by mouth2 times a day with morning and evening meals. 180 Tablet 5 DULoxetine HCl 60 MG Oral Capsule Delayed Release Particles (Cymbalta) TAKE ONE CAPSULE BY MOUTH EVERY MORNING along with duloxetine 30 mg capsule ( total dose 90mg) ,DO NOT CUT, CRUSH, OR CHEW. Takes in evening 90 Capsule 5 DULoxetine HCl 30 MG Oral Capsule Delayed Release Particles (Cymbalta) TAKE ONE CAPSULE BY MOUTH EVERY MORNING along with duloxetine 60 mg capsule ( total dose 90mg) ,DO NOT CUT, CRUSH, OR CHEW. Takes in evening 30 Capsule 5 BD Insulin Syringe 25G X 5/8" 1 ML (Insulin Syringe-Needle U-100) Use to inject B-12 injection oncea month. 10 Each 1 FreeStyle French 3 Palmer Device Use as directed. 1 Each 0 FreeStyle French 3 Plus Sensor Change sensor every 15 days. 2 Each 11 Tylenol 325 MG Oral Capsule (Acetaminophen) Take by mouth. Cyanocobalamin 1000 MCG/ML Injection Solution (Cyanocobalamin) Inject 1 mL into a large muscle every 30 days. 1 mL 11 BD SafetyGlide Needle 25G X 1" (Needle (Disp)) Use for vitamin b12 injections monthly. 12 Each 0 CoQ10 100 MG Oral Capsule Take 1 Capsule by mouth in the morning. 30 Capsule 0 Cholecalciferol 50 MCG (2000 UT) Oral Tablet Take 1 Tablet by mouth in the morning. 1 daily. 30 Tablet 0 Calcium Carbonate-Vitamin D 500-5 MG-MCG Oral Tablet Take 1 Tablet by mouth in the morning. 30 Tablet 0 Diclofenac Sodium 1 % External Gel (Voltaren) Apply topically to affected area 3 times a day. Apply2 gm to right shoulder 3x daily and 4 gm to low back 3x daily 350 g 0 No current facility-administered medications for this visit. The patient's medication list was reviewed and updated as needed. Review of patient's allergies indicates: Allergen Reactions Advil [Ibuprofen] Alendronate Sodium Celecoxib Nausea/vomiting Cheese Cheddar Type [Cheese Flavoring Agent (Non-Screening)] Monosodium Glutamate Penicillin G Salicylates Unknown Sulfa Antibiotics Past Medical History: Diagnosis Date DDD (degenerative disc disease), lumbosacral Diabetes type 2, controlled (HCC) Generalized OA Glaucoma Hypothyroidism Senile osteoporosis Social History Socioeconomic History Marital status: Number of children: 4 Tobacco Use Smoking status: Never Smokeless tobacco: Never Vaping Use Vaping status: Never Used Substance and Sexual Activity Alcohol use: No Drug use: No Social Needs Food Insecurity: No Food Insecurity (01/14/2023) Hunger Vital Sign Worried About Running Out of Food in the Last Year: Never true Ran Out of Food in the Last Year: Never true Family History Problem Relation Name Age of Onset Arthritis Father Heart Disorder Father Other (osteoporosis) Mother All system negative except as per hpi. OBJECTIVE: BP 138/80 (BP Site: Left Arm, BP Position: Sitting, BP Cuff Size: Pediatric) | Pulse 103 | Temp 97.6 F (36.4 C) (Tympanic) | Resp 14 | Ht 4' 4.99" (1.346 m) | Wt 97 lb 14.4 oz (44.4 kg) | SpO2 96% | BMI 24.51 kg/m | BSA 1.29 m PHYSICAL EXAM: HEENT: PERRLA, EOMI, anicteric sclera, b/l tympanic membrane is pearly white, no erythema, no pharyngeal erythema, no lymphadenopathy, neck supple CVS: RRR, no murmurs, rubs or gallops, s1 s 2normal. RESP: clear to auscultation, no wheezing or crackles ABD: soft, NT/ND, slightly distended. EXT: no edema, cyanosis, peripheral pulses palpable bilaterally No large joint swelling, no redness, range of motion normal. Skin normal. Gait normal. Mood stable No focal weakness ASSESSMENT AND PLAN: Controlled type 2 diabetes mellitus with hyperglycemia, without long-term current use of insulin (HCC) (Primary) - DIABETES FOOT EXAM - LIPID PANEL WITH DIRECT LDL IF TG IS HIGH On metformin. Hold trulicity for a month and see if helps with abd weight gain an dbloating. F/u with MTM. Hba1c today 7.9. DM (diabetes mellitus), type 2, uncontrolled, with hyperosmolarity (HCC) Balance disorder - VASC DUPLEX CAROTID BILAT - PHYSICAL THERAPY REFERRAL OP Advised hydration, use walker all the time. Multiple falls - PHYSICAL THERAPY REFERRAL OP Senile osteoporosis Generalized OA Tylenol 325 mg three times daily as needed. Cognitive impairment - VASC DUPLEX CAROTID BILAT Malaise and fatigue - COMPREHENSIVE METABOLIC PANEL; Future; Expected date: 11/10/2024 - CBC WITH WBC DIFFERENTIAL; Future; Expected date: 11/10/2024 - FERRITIN; Future; Expected date: 11/10/2024 - TSH; Future; Expected date: 11/10/2024 - COMPREHENSIVE METABOLIC PANEL - CBC WITH WBC DIFFERENTIAL - FERRITIN - TSH Abdominal distension - US ABDOMEN COMPLETE; Future; Expected date: 11/10/2024 Dizziness - VASC DUPLEX CAROTID BILAT Use walker all the time. Encounter for long-term (current) use of medications - LIPID PANEL WITH DIRECT LDL IF TG IS HIGH Depression Continue cymbalta. S/s well controlled. Hypothyroidism Continue levoxyl . Follow Up: Return in about 6 months (around 05/10/2025) for Return with Physician. | For: Return withPhysician Tabitha Hall MD * Joleen Sandoval CMA - 11/10/2024 10:50 AM EST Socks and Shoes Removed for Annual Diabetic Foot Screening RIGHT FOOT: No Reddened, Cracking, Or Open Areas Noted. RIGHT Dorsalis Pedis Pulse: Palpable RIGHT Posterior Tibial Pulse: Palpable RIGHT Monofilament:Patient reports feeling monofilament pressure on plantar surface of foot LEFT FOOT: No Reddened, Cracking or Open Areas Noted. LEFT Dorsalis Pedis Pulse: Palpable LEFT Posterior Tibial Pulse: Palpable LEFT Monofilament:Patient reports feeling monofilament pressure on plantar surface of foot Do you need diabetic shoes: No DM Foot Exam completed today. Provider aware. Joleen Sandoval CMA documented in this encounter Nursing Notes * Joleen Sandoval CMA - 11/10/2024 10:50 AM EST Lilibeth Kong presents for 4 month recheck. Would like to discuss weight gain or if her abdomen has been distended/bloated. She denies any abdominal pain or bowel changes. She states she has also had some episodes of generalized weakness or dizziness. She denies this feeling right now. No headaches or blurred vision, no cheat pain or palpitations. Medications & HM reviewed. documented in this encounter Plan of Treatment Upcoming Encounters Date Type Department Care Team (Late st Contact Info) Description 11/19/2024 10:30 AM EST Imaging Radiology [address] 132 [facility] [address] 11/19/2024 11:30 AM EST Imaging Vascular Lab, [address] 132 [facility] [place] [address] 12/27/2024 2:20 PM EDT Office Visit Neurology [facility] [address] [place] [address] Alvin Aragon MD [address] [place] [address] 01/05/2025 9:10 AM EDT Office Visit Pharmacy, [facility] [address] [place] [address] Pharmacist1, [facility] [address] [place] [address] 01/05/2025 9:40 AM EDT Office Visit General Internal Medicine [facility] [address] [place] [address] Tabitha Hall MD [address] [place] [address] [address] 03/23/2025 9:30 AM EDT Nurse Only Rheumatology [facility] 132 [facility] [place] [phone] Nurse Arlene Gary[address] [place] [address] 05/17/2025 3:00 PM EDT Office Visit General Internal Medicine [facility] 200 [facility] [place] [address] Tabitha Hall MD 200 [facility] [place] [address] 10/10/2025 9:40 AM EST Office Visit Rheumatology [facility] [address] [place] [phone] Agustin Erickson MD 2520 [facility] [place] [address] Scheduled Orders Name Type Priority Associated Diagnoses Orde r Schedule VASC DUPLEX CAROTID BILAT Medical Imaging Routine Balance disorder Cognitive impairment Dizziness Ordered: 11/10/2024 US ABDOMEN COMPLETE Medical Imaging Routine Abdominal distension Expected: 11/10/2024, Expires: 12/08/2025 Scheduled Referrals Name Type Priority Associated Diagnoses Orde r Schedule PHYSICAL THERAPY REFERRAL OP Referral Within 10 days (routine) Balance disorder Multiple falls Ordered: 11/10/2024 Health Maintenance Due Date Last Done Comments Adult Wellness Visit 02/03/2004 Depression Monitoring 01/15/2024 01/14/2023 COVID-19 Vaccine ( season) 2024 06/25/2024, 07/22/2023, 02/21/2023, Additional history exists Albumin/Creatinine Ratio 03/05/2025 024, 01/14/2023, 04/15/2022, Additional history exists Diabetic Eye Exam 04/14/2025 04/14/2024, , 01/25/2021, Additional history exists HbA1c 05/10/2025 11/10/2024, 06/07, 03/05/2024, Additional history exists Diabetic Foot Exam 11/10/2025 11/10/2024, 0 01/14/2023, 06/07/2021, Additional history exists TSH 11/10/2025 11/10/2024, 04/07, 03/05/2024, Additional history exists DXA Scan 08/18/2026 08/18/2024, 11/2021, 07/31/2020 DTap/Tdap Vaccines (3 - Td or Tdap) 06/27/2033 06/27/2023, 06/03/2012 Zoster Vaccines Completed 07/01/2019, 03/06, 10/06/2009 Pneumococcal Vaccine: 50+ Years Completed 06/07/2021, 01/07/2018, 03/21/2015 Influenza Vaccine (FLU shot) Completed , 06/12/2023, 07/24/2021, Additional history exists VITAMIN D LEVEL ONCE IN A LIFETIME-USE SMARTSET# [id number] Completed 06/28/2024, 06/12/2023, 10/24/2021, Additional history exists [...] Date/Time Associated Diagnosis Comments DIFFERENTIAL, AUTOMATED Routine 11/10/2024 11:47 AM EST Malaise and fatigue LIPID PANEL WITH DIRECT LDL IF TG IS HIGH Routine 11/10/2024 11:47 AM EST Controlled type 2 diabetes mellitus with hyperglycemia, without long-term current use of insulin (HCC) Encounter for long-term (current) use of medications COMPREHENSIVE METABOLIC PANEL Routine 11/10/2024 11:47 AM EST Malaise and fatigue CBC Routine 11/10/2024 11:47 AM EST Malaise and fatigue CBC Routine 11/10/2024 11:47 AM EST Malaise and fatigue TSH Routine 11/10/2024 11:47 AM EST Malaise and fatigue LDL CHOLESTEROL (DIRECT MEASURE) Routine 11/10/2024 11:47 AM EST Controlled type 2 diabetes mellitus with hyperglycemia, without long-term current use of insulin (HCC) Encounter for long-term (current) use of medications FERRITIN Routine 11/10/2024 11:47 AM EST Malaise and fatigue documented in this encounter Results * LDL CHOLESTEROL (DIRECT MEASURE) (11/10/2024 11:47 AM EST) LDL Cholesterol (Direct Measure) 60 <=129 mg/dL 11/10/2024 9:39 PM EST [facility] Comment: LDL Cholesterol Reference Ranges (mg/dL): <70 Target level for high risk ASCVD patient <100 Optimal for general population 100-129 Near optimal for general population 130-159 Borderline high 160-189 High >=190 Very high Blood Venous blood specimen / Unknown Venipuncture / Unknown 11/10/2024 11:47 AM EST 11/10/2024 11:47 AM EST us Marlys Esqueda [facility] LAB BLOOD ORDERABLES F inal Result [facility] [address] [place] [address] * (ABNORMAL) DIFFERENTIAL, AUTOMATED (11/10/2024 11:47 AM EST) WBC 11.28(H) 4.00 - 10.80 K/uL 11/10/2024 11:57 AM EST [facility] 56-02 Neutrophils % 68.8 40.0 - 75.0 % 11/10/2024 11:57 AM EST [facility] 56-02 Lymphocytes % 19.9 18.0 - 42.0 % 11/10/2024 11:57 AM EST [facility] 56-02 Monocytes % 8.2 1.0 - 11.0 % 11/10/2024 11:57 AM EST [facility] 56-02 Eosinophils % 2.3 0.0 - 6.0 % 11/10/2024 11:57 AM EST [facility] 56-02 Basophils % 0.8 0.0 - 2.0 % 11/10/2024 11:57 AM [facility] 56-02 Absolute Neutrophils 7.76(H) 1.80 - 7.70 K/uL 11/10/2024 11:57 AM [facility] 56-02 Absolute Lymphocytes 2.25 1.00 - 4.80 K/ul 11/10/2024 11:57 AM [facility] 56- Absolute Monocytes 0.92 0.00 - 1.10 K/uL 11/10/2024 11:57 AM [facility] 56-02 Absolute Eosinophils 0.26 0.00 - 0.70 K/uL 11/10/2024 11:57 AM [facility] 56-02 Absolute Basophils 0.09 0.00 - 0.20 K/uL 11/10/2024 11:57 AM [facility] 56- Blood Venous blood specimen / Unknown Venipuncture / Unknown 11/10/2024 11:47 AM EST 11/10/2024 11:47 AM EST Tabitha Hall MD LAB BLOOD ORDERABLES Fin al Result [facility] 56- [address] [place] [address] * (ABNORMAL) CBC (11/10/2024 11:47 AM EST) WBC 11.28(H) 4.00 - 10.80 K/uL 11/10/2024 11:57 AM [facility] 56- RBC 4.16 3.85 - 5.15 M/uL 11/10/2024 11:57 AM [facility] 56- HGB 11.8(L) 12.0 - 15.3 g/dL 11/10/2024 11:57 AM [facility] 56- HCT 35.8(L) 36.0 - 45.2 % 11/10/2024 11:57 AM [facility] 56- MCV 86.1 81.5 - 97.5 fL 11/10/2024 11:57 AM [facility] 56- MCH 28.4 27.0 - 34.0 pg 11/10/2024 11:57 AM EST [facility] 56- MCHC 33.0 32.0 - 36.0 g/dL 11/10/2024 11:57 AM [facility] 56- RDW 13.5 11.5 - 15.5 % 11/10/2024 11:57 AM [facility] 56- PLT 372 140 - 400 K/uL 11/10/2024 11:57 AM [facility] 56- MPV 8.9 6.6 - 11.1 fL 11/10/2024 11:57 AM [facility] 56- Blood Venous blood specimen / Unknown Venipuncture / Unknown 11/10/2024 11:47 AM EST 11/10/2024 11:47 AM EST Tabitha Hall MD LAB BLOOD ORDERABLES Fin al Result [facility] [address] [place], [place] [id number] * (ABNORMAL) LIPID PANEL WITH DIRECT LDL IF TG IS HIGH (11/10/2024 11:47 AM EST) Triglycerides 350(H) <=174 mg/dL 11/10/2024 9:21 PM EST [facility] Comment: Triglyceride Reference Ranges (mg/dL): <150 Acceptable 150-174 Borderline high 175-499 High >=500 Very high Cholesterol 150 <200 mg/dL 11/10/2024 9:21 PM EST [facility] Comment: Total Cholesterol Reference Ranges (mg/dL): <200 Desirable 200-239 Borderline high >=240 High HDL Cholesterol 46(L) >49 mg/dL 9:21 PM EST [facility] Comment: HDL Cholesterol Reference Ranges (mg/dL): >=60 High (Desirable) <50 Low (Undesirable) For Females <40 Low (Undesirable) For Males Non-HDL Cholesterol 104 <=159 mg/dL 11/10/2024 9:21 PM EST [facility] Comment: Non-HDL Cholesterol Reference Range (mg/dL): <100 Target level for high risk ASCVD patient <130 Optimal for general population 130-159 Near optimal for general population 160-189 Borderline High 190-219 High >=220 Very High Blood Venous blood specimen / Unknown Venipuncture / Unknown 11/10/2024 11:47 AM EST 11/10/2024 11:47 AM EST Marlys Antoninaedwardo Esqueda [facility] LAB BLOOD ORDERABLES F inal Result Performing Organization Address City/[facility] Co de Phone Number [facility] [address] [place] [address] * TSH (11/10/2024 11:47 AM EST) TSH 2.78 0.27 - 4.20 uIU/mL 11/10/2024 10:23 PM EST [facility] Blood Venous blood specimen / Unknown Venipuncture / Unknown 11/10/2024 11:47 AM EST 11/10/2024 11:47 AM EST Tabitha Hall MD LAB BLOOD ORDERABLES Fin al Result Performing Organization Address [facility] de Phone Number [facility] [address] [place] [address] * FERRITIN (11/10/2024 11:47 AM EST) Pathologist [facility] Ferritin 58 13 - 150 ng/mL 11/10/2024 10:23 PM EST [facility] Comment:Postmenopausal women have higher ferritin levels than pre-menopausal women. The above reference interval is based on pre-menopausal women. Blood Venous blood specimen / Unknown Venipuncture / Unknown 11/10/2024 11:47 AM EST 11/10/2024 11:47 AM EST Tabitha Hall MD LAB BLOOD ORDERABLES Fin al Result Performing Organization Address City/[facility] Co de Phone Number [facility] [address] [place] [address] * (ABNORMAL) COMPREHENSIVE METABOLIC PANEL (11/10/2024 11:47 AM EST) BUN 14 6 - 20 mg/dL 11/10/2024 1:03 PM [facility] 56 CREATININE 0.6 0.5 - 1.0 mg/dL 11/10/2024 1:03 PM [facility] 56 EGFR 86 >=60 mL/min 11/10/2024 1:03 PM [facility] 56- Comment:eGFR is calculated b ased on the CKD-EPI 2020 equation. SODIUM 132(L) 135 - 146 mmol/L 11/10/2024 1:03 PM [facility] 56 POTASSIUM 4.9 3.5 - 5.1 mmol/L 11/10/2024 1:03 PM [facility] 56 CHLORIDE 93(L) 98 - 107 mmol/L 11/10/2024 1:03 PM [facility] 56 CO2 26 22 - 32 mmol/L 11/10/2024 1:03 PM [facility] 56 ANION GAP 13 7 - 15 mmol/L 11/10/2024 1:03 PM [facility] 56 GLUCOSE 170(H) 70 - 120 mg/dL 11/10/2024 1:03 PM [facility] 56 Albumin 4.3 3.8 - 5.0 g/dL 11/10/2024 1:03 PM [facility] 56 AST 26 10 - 35 U/L 11/10/2024 1:03 PM [facility] 56 Alkaline Phosphatase 67 35 - 130 U/L 11/10/2024 1:03 PM [facility] 56 Bilirubin, Total 0.4 <=1.2 mg/dL 11/10/2024 1:03 PM [facility] 56 CALCIUM 9.9 8.4 - 10.2 mg/dL 11/10/2024 1:03 PM [facility] 56 Protein 6.9 6.0 - 8.3 g/dL 11/10/2024 1:03 PM [facility] 56 ALT 36(H) 10 - 35 U/L 11/10/2024 1:03 PM [facility] 56 Blood Venous blood specimen / Unknown Venipuncture / Unknown 11/10/2024 11:47 AM EST 11/10/2024 11:47 AM EST Tabitha Hall MD LAB BLOOD ORDERABLES Fin al Result [facility] [address] [facility] [address] documented in this encounter Visit Diagnoses Diagnosis Controlled type 2 diabetes mellitus with hyperglycemia, without long-term current use of insulin (HCC)- Primary DM (diabetes mellitus), type 2, uncontrolled, with hyperosmolarity ([facility]) Type II or unspecified type diabetes mellitus with hyperosmolarity, uncontrolled Balance disorder Other symptoms involving nervous and musculoskeletal systems Multiple falls Personal history of fall Senile osteoporosis Generalized OA Generalized osteoarthrosis, unspecified site Cognitive impairment Unspecified persistent mental disorders due to conditions classified elsewhere Malaise and fatigue Other malaise and fatigue Abdominal distension Flatulence, eructation, and gas pain Dizziness Dizziness and giddiness Encounter for long-term (current) use of medications Encounter for long-term (current) use of other medications Recurrent major depressive disorder, in partial remission (HCC) Acquired hypothyroidism Unspecified hypothyroidism documented in this encounter Advance Directives Documents on File Type Date Recorded Patient Boiler Attendant Expl anation POLST 06/06/2021 ANTOINETTE REESE ORDERS FOR LIFE-SUSTAINING TREATMENT Care Teams Busser Relationship Specialty Start Date End Date Tabitha Hall [facility] [address] [facility] [address] PCP - General Internal Medicine 07/27/20 documented as of this encounter
--- OUTSIDE RECORDS SUMMARY | 2024-11-17 01:02 | External Medical Summary | Summary of Care ---
Author Name Unknown Organization [facility] Address [address] , [place] Care Team Providers Care Airline Pilot/First Officer Name Role Phone Tabitha Hall MD Primary Care Provider + Reason for Visit * Reason Onset Date Comments FYI 11/12/2024 Encounter Details Date Type Department Care Team (Late st Contact Info) Description 11/12/2024 Telephone Pharmacy, [facility] [address] [facility] [place] [address] Pharmacist1, [facility] [address] FYI (/) Allergies Active Allergy Reactions Criticality Noted Date Comments Ibuprofen 06/11/2016 Alendronate Sodium 08/13/2016 Celecoxib Nausea/vomiting 12/22/2013 Cheese Flavoring Agent (Non-Screening) 08/27/2013 Monosodium Glutamate 08/13/2016 Penicillin G 06/11/2016 Salicylates Unknown 05/17/2021 Sulfa Antibiotics 06/11/2016 documented as of this encounter (statuses as of 11/12/2024) Medications BD Insulin Syringe 25G X 5/8" 1 ML (Insulin Syringe-Needle U-100)Indications:C ontrolled type 2 diabetes mellitus with hyperglycemia, without long-term current use of insulin (HCC),Type 2 diabetes mellitus with hemoglobin A1c goal of less than 8.0% (HCC) Use to inject B-12 injection once a month. 10 Each 08/23/20 Active FreeStyle French 3 Howes DeviceIndications:D M (diabetes mellitus), type 2, uncontrolled, with hyperosmolarity (HCC) Use as directed. 1 Each 03/29/20 Active FreeStyle French 3 Plus SensorIndications:D M (diabetes mellitus), type 2, uncontrolled, with hyperosmolarity (HCC) Change sensor every 15 days. 2 Each 07/29/20 24 Active Tylenol 325 MG Oral Capsule (Acetaminophen) Take by mouth. Active Magnesium Hydroxide 400 MG/5ML Oral Suspension (Mom) Take by mouth daily as needed for Constipation. Active Hydrocortisone 1 % External Cream Apply topically to affected area 2 times a day. Active Cyanocobalamin 1000 MCG/ML Injection Solution (Cyanocobalamin)Ind ications:B12 deficiency Inject 1 mL into a large muscle every 30 days. 1 mL 08/26/20 24 Active Rosuvastatin Calcium 5 MG Oral Tablet (Crestor)Indication s:Hyperlipidemia with target LDL less than 100,Hyperlipidemia, unspecified hyperlipidemia type Take 1 Tablet by mouth once a day on Friday, Friday, and Friday only. 12 Tablet 2 11/03/19 25 Active BD SafetyGlide Needle 25G X 1" (Needle (Disp)) Use for vitamin b12 injections monthly. 12 Each 11/02/19 25 Active Calcium Carbonate-Vitamin D 500-5 MG-MCG Oral TabletIndications:A ge-related osteoporosis with current pathological fracture with routine healing, subsequent encounter Take 1 Tablet by mouth in the morning. 30 Tablet 11/04/19 25 Active Diclofenac Sodium 1 % External Gel (Voltaren)Indicatio ns:Generalized OA Apply topically to affected area 3 times a day. Apply 2 gm to right shoulder 3x daily and 4 gm to low back 3x daily 350 g 11/04/19 25 Active Iron Glycinate 29 MG Oral CapsuleIndications: Controlled type 2 diabetes mellitus with hyperglycemia, without long-term current use of insulin (HCC) Take 1 Capsule by mouth once a day on Friday, , and Friday only. 12 Capsule 11/04/19 25 Active Levothyroxine Sodium 25 MCG Oral Tablet (Levoxyl)Indication s:Acquired hypothyroidism Take by mouth: 2 pills once daily Friday to and take one pill Friday to Friday.(at least 30 min prior to breakfast or other meds) 90 Tablet 5 11/04/19 25 Active Vitamin B12 100 MCG Oral Tablet Take 1 Tablet by mouth in the morning. 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) Take 1 Tablet by mouth in the morning. 90 Tablet 3 11/04/19 25 Active Trulicity 0.75 MG/0.5ML Subcutaneous Solution Auto-injector (Dulaglutide)Indica tions:Controlled type 2 diabetes mellitus with hyperglycemia, without long-term current use of insulin ([facility]) Inject 0.75 mg under the skin once a week. 2 mL 11/04/19 25 Active Travoprost (RENEA Free) 0.004 % Ophthalmic Solution (Travatan Z)Indications:Glauc charlee of both eyes, unspecified glaucoma type Instill 1 Drop into both eyes at bedtime. 1 daily 2.5 mL 2 11/04/19 25 Active metFORMIN HCl ER 500 MG Oral Tablet Extended Release 24 Hour (Glucophage XR)Indications:Cont rolled type 2 diabetes mellitus with hyperglycemia, without long-term current use of insulin ([facility]) Take 1 Tablet by mouth 2 times a day with morning and evening meals. 180 Tablet 11/04/19 25 Active DULoxetine HCl 60 MG Oral Capsule Delayed Release Particles (Cymbalta)Indicatio ns:Generalized OA,Recurrent major depressive disorder, in partial remission (HCC) TAKE ONE CAPSULE BY MOUTH EVERY MORNING along with duloxetine 30 mg capsule ( total dose 90mg) ,DO NOT CUT, CRUSH, OR CHEW. Takes in evening 90 Capsule 11/04/19 25 Active DULoxetine HCl 30 MG Oral Capsule Delayed Release Particles (Cymbalta)Indicatio ns:Generalized OA,Recurrent major depressive disorder, in partial remission (HCC) TAKE ONE CAPSULE BY MOUTH EVERY MORNING along with duloxetine 60 mg capsule ( total dose 90mg) ,DO NOT CUT, CRUSH, OR CHEW. Takes in evening 30 Capsule 11/04/19 25 Active Vitamin D3 50 MCG (1999 UT) Oral TabletIndications:A ge-related osteoporosis with current pathological fracture with routine healing, subsequent encounter TAKE 1 TABLET BY MOUTH IN THE MORNING. 1 DAILY. 30 Tablet 11 02/06/20 25 Active Acetaminophen 325 MG Oral Tablet (Tylenol)Indication s:Generalized OA One pill three times daily as needed. 180 Tablet 11/11/19 25 Active Magnesium Oxide -Mg Supplement 250 MG Oral TabletIndications:G eneralized OA TAKE 1 TABLET BY MOUTH ONCE A DAY ON FRIDAY, FRIDAY, AND FRIDAY ONLY. 12 Tablet 11/11/19 25 Active Vitamin C 500 MG Oral Tablet (Ascorbic Acid)Indications:Co ntrolled type 2 diabetes mellitus with hyperglycemia, without long-term current use of insulin (HCC) TAKE 1 TABLET BY MOUTH IN THE MORNING. 30 Tablet 11/11/19 25 Active Coenzyme Q-10 100 MG Oral CapsuleIndications: Controlled type 2 diabetes mellitus with hyperglycemia, without long-term current use of insulin (HCC) TAKE 1 CAPSULE BY MOUTH IN THE MORNING. 30 Capsule 11/11/19 25 Active Oyster Shell Calcium w/D 500-5 MG-MCG Oral TabletIndications:G eneralized OA TAKE 1 TABLET BY MOUTH IN THE MORNING. (OSTEOPOROSIS) 30 Tablet 11/11/19 25 Active Gentle Iron 28-60-0.008-0.4 MG Oral Capsule (Fe Bisgly-Vit C-Vit B12-FA)Indications: Generalized OA TAKE 1 CAPSULE BY MOUTH ONCE A DAY ON FRIDAY, FRIDAY, AND FRIDAY ONLY. 12 Capsule 11/11/19 25 Active documented as of this encounter (statuses as of 11/12/2024) Active Problems Problem Noted Date Diagnosed Date [...] as of this encounter (statuses as of 11/12/2024) Resolved Problems Problem Noted Date Diagnosed Date Resolved Date DM (diabetes mellitus), type 2, uncontrolled, with hyperosmolarity 06/29/2024 07/13/2024 Dislocation closed, finger, subsequent encounter 09/06/2020 07/13/2024 documented as of this encounter (statuses as of 11/12/2024) Immunizations Name Administration Dates Next Due COVID-19 [...] PM EST documented as of this encounter Miscellaneous Notes * Telephone Encounter - Yunior Phillips RPh - 11/12/2024 8:17 AM EST Patient Phone Numbers BG at goal. No contact needed. I am calling Jackie to let them know I do not need her BG every day. We will get BG when she is scheduled for her next appointment. Yunior Sanchez RPh, [facility] Clinical Pharmacist [facility] 11/12/2024, 8:18 AM * Telephone Encounter - Cee Khan CPhT - 11/12/2024 7:38 AM EST Received fax from Jackie, patient's BG this am was 186, also scanned the fax into the chart. Cee Khan CPhT, [place] Contract Processor II [facility] documented in this encounter Plan of Treatment Upcoming Encounters Date Type Department Care Team (Late st Contact Info) Description 11/19/2024 10:30 AM EST Imaging Radiology [address] 132 [place] [address] 11/19/2024 11:30 AM EST Imaging Vascular Lab, [address] 132 [place] [address] 12/27/2024 2:20 PM EDT Office Visit Neurology [facility] [address] [place] [address] Alvin Aragon MD [address] [place] [address] [address] 01/05/2025 9:10 AM EDT Office Visit Pharmacy, [facility] [address] [place] [place] [address] Pharmacist1, [facility] [address] [place] [address] 01/05/2025 9:40 AM EDT Office Visit General Internal Medicine [facility] [address] [place] [address] Tabitha Hall MD [address] [place] [place] [address] 03/23/2025 9:30 AM EDT Nurse Only Rheumatology [facility] 132 [facility], [place] [phone] Nurse Arlene [facility] [place] [address] 05/17/2025 3:00 PM EDT Office Visit General Internal Medicine [facility] [address] [place] [address] Tabitha Hall MD [address] [place] [address] 10/10/2025 9:40 AM EST Office Visit Rheumatology [facility] [address] [place] [phone] Agustin Erickson MD [address] [place] [address] Health Maintenance Due Date Last Done Comments [...] 06/07/2021, Additional history exists TSH 11/10/2025 11/10/2024, 07/3 , 03/05/2024, Additional history exists DXA Scan 08/18/2026 08/18/2024, 1111/2021, 07/31/2020 DTap/Tdap Vaccines (3 - Td or Tdap) 06/27/2033 06/27/2023, 06/03/2012 Zoster Vaccines Completed 07/01/2019, 03/06, 10/06/2009 Pneumococcal Vaccine: 50+ Years Completed 06/07/2021, 01/07/2018, 03/21/2015 Influenza Vaccine (FLU shot) Completed , 06/12/2023, 07/24/2021, Additional history exists VITAMIN D LEVEL ONCE IN A LIFETIME-USE SMARTSET# [id number] Completed 06/28/2024, 06/12/2023, 10/24/2021, Additional history exists [...] Documents on File Type Date Recorded Patient Zinc Plater Expl anation POLST 06/06/2021 POLST LIANNE REESE ORDERS FOR LIFE-SUSTAINING TREATMENT Care Teams Airline Pilot/First Officer Relationship Specialty Start Date End Date Tabitha Hall MD [address] [place] [address], [place] [id number] PCP - General Internal Medicine 07/27/20 documented as of this encounter
--- OUTSIDE RECORDS SUMMARY | 2024-11-17 01:02 | External Medical Summary | Summary of Care ---
Author Name Unknown Organization [facility] Address [address] [place] [address] Phone [phone] Care Team Providers Care Pie Icer Machine Name Role Phone Tabitha Hall MD Primary Care Provider + Reason for Referral * Medication Prior Authorization - Pending Review Specialty Diagnoses / Procedures Referred By Michael t Referred To Contact Diagnoses Generalized OA Tabitha Hall MD [address] [place] [address] Phone: tel: fax: Referral ID Status Reason Start Date Expiration Date V isits Requested Visits Authorized [id number] Pending Review 999 999 * Medication Prior Authorization - Pending Review Specialty Diagnoses / Procedures Referred By Contac t Referred To Contact Diagnoses Generalized OA Tabitha Hall MD [address] [place] [address] Phone: tel: fax: Referral ID Status Reason Start Date Expiration Date V isits Requested Visits Authorized [id number] Pending Review 999 999 * Medication Prior Authorization - Pending Review Specialty Diagnoses / Procedures Referred By Contac t Referred To Contact Diagnoses Controlled type 2 diabetes mellitus with hyperglycemia, without long-term current use of insulin ([facility]) Tabitha Hall MD 200 [facility] [place] [address] Phone: tel: fax: Referral ID Status Reason Start Date Expiration Date V isits Requested Visits Authorized [id number] Pending Review 999 999 * Medication Prior Authorization - Pending Review Specialty Diagnoses / Procedures Referred By Michael awad Referred To Contact Diagnoses Generalized OA Tabitha Hall MD 200 [place] [place] [address] Phone: tel: fax: Referral ID Status Reason Start Date Expiration Date V isits Requested Visits Authorized [id number] Pending Review 999 999 Reason for Visit * Reason Comments eRx-Medication Refill Encounter Details Date Type Department Care Team (Late st Contact Info) Description 11/09/2024 Refill General Internal Medicine [facility] 200 [facility] [place], [place] [address] Tabitha Hall MD 200 [facility] [place], [place] [address] Age-related osteoporosis with current pathological fracture with routine healing, subsequent encounter; Generalized OA; Controlled type 2 diabetes mellitus with hyperglycemia, without long-term current use of insulin ([facility]) Allergies Active Allergy Reactions Criticality Noted Date Comments Ibuprofen 06/11/2016 Alendronate Sodium 08/13/2016 Celecoxib Nausea/vomiting 12/22/2013 Cheese Flavoring Agent (Non-Screening) 08/27/2013 Monosodium Glutamate 08/13/2016 Penicillin G 06/11/2016 Salicylates Unknown 05/17/2021 Sulfa Antibiotics 06/11/2016 documented as of this encounter (statuses as of 11/11/2024) Medications BD Insulin Syringe 25G X 5/8" 1 ML (Insulin Syringe-Needle U-100)Indications: Controlled type 2 diabetes mellitus with hyperglycemia, without long-term current use of insulin (HCC),Type 2 diabetes mellitus with hemoglobin A1c goal of less than 8.0% (HCC) Use to inject B-12 injection once a month. 10 Each 1 022 Active FreeStyle French 3 [place] DeviceIndications: DM (diabetes mellitus), type 2, uncontrolled, with hyperosmolarity (HCC) Use as directed. 1 Each 024 Active [...] muscle every 30 days. 1 mL 11 024 Active Rosuvastatin Calcium 5 MG Oral Tablet [...] Friday, , and Friday only. 12 Capsule Active Levothyroxine Sodium 25 MCG Oral Tablet (Levoxyl)Indicatio ns:Acquired hypothyroidism Take by mouth: 2 pills once daily Friday to and take one pill Friday to Friday.(at least 30 min prior to breakfast or other meds) 90 Tablet 5 Active Vitamin B12 100 MCG Oral Tablet Take 1 Tablet by mouth in the morning. 30 Tablet Active Sodium Chloride 1 GM Oral TabletIndications: SIADH (syndrome of inappropriate ADH production) ([facility]) Take 1 Tablet by mouth in the morning. 90 Tablet 3 Active Trulicity 0.75 MG/0.5ML Subcutaneous Solution Auto-injector (Dulaglutide)Indic ations:Controlled type 2 diabetes mellitus with hyperglycemia, without long-term current use of insulin ([facility]) Inject 0.75 mg under the skin once [...] ([facility]) Take 1 Tablet by mouth 2 times a day with morning and evening meals. 180 Tablet 025 Active DULoxetine HCl 60 MG Oral Capsule [...] CHEW. Takes in evening 30 Capsule 5 Active Vitamin D3 50 MCG (1999) Oral TabletIndications: Age-related osteoporosis with current pathological fracture with routine healing, subsequent encounter TAKE 1 TABLET BY MOUTH IN THE MORNING. 1 DAILY. 30 Tablet Active Acetaminophen 325 MG Oral Tablet (Tylenol)Indicatio ns:Generalized OA One pill three times daily as needed. 180 Tablet Active Magnesium Oxide -Mg Supplement 250 MG Oral TabletIndications: Generalized OA TAKE 1 TABLET BY MOUTH ONCE A DAY ON FRIDAY, FRIDAY, AND FRIDAY ONLY. 12 Tablet Active Vitamin C 500 MG Oral Tablet (Ascorbic Acid)Indications:C ontrolled type 2 diabetes mellitus with hyperglycemia, without long-term current use of insulin (HCC) TAKE 1 TABLET BY MOUTH IN THE MORNING. 30 Tablet Active Coenzyme Q-10 100 MG Oral CapsuleIndications :Controlled type 2 diabetes mellitus with hyperglycemia, without long-term current use of insulin (HCC) TAKE 1 CAPSULE BY MOUTH IN THE MORNING. 30 Capsule Active Oyster Shell Calcium w/D 500-5 MG-MCG Oral TabletIndications: Generalized OA TAKE 1 TABLET BY MOUTH IN THE MORNING. (OSTEOPOROSIS ) 30 Tablet Active Gentle Iron 28-60-0.008-0.4 MG Oral Capsule (Fe Bisgly-Vit C-Vit B12-FA)Indications :Generalized OA TAKE 1 CAPSULE BY MOUTH ONCE A DAY ON FRIDAY, FRIDAY, AND FRIDAY ONLY. 12 Capsule Active CoQ10 100 MG Oral CapsuleIndications :Controlled type 2 diabetes mellitus with hyperglycemia, without long-term current use of insulin (HCC) Take 1 Capsule by mouth in the [...] as of this encounter (statuses as of 11/11/2024) Active Problems Problem Noted Date Diagnosed Date [...] as of this encounter (statuses as of 11/11/2024) Resolved Problems Problem Noted Date Diagnosed Date Resolved Date DM (diabetes mellitus), type 2, uncontrolled, with hyperosmolarity 06/29/2024 07/13/2024 Dislocation closed, finger, subsequent encounter 09/06/2020 07/13/2024 documented as of this encounter (statuses as of 11/11/2024) Immunizations Name Administration Dates Next Due COVID-19 [...] Telephone Encounter - Tabitha Hall MD - 11/11/2024 10:51 AM EST Signed Prescriptions: Disp Refills Vitamin D3 50 MCG (1999) Oral Tablet 30 Tab*11 Sig: TAKE 1 TABLET BY MOUTH IN THE MORNING. 1 DAILY.Authorizing Provider: TABITHA HALL Acetaminophen 325 MG Oral Tablet (Tylenol) 180 Ta*11 Sig: One pill three times daily as needed.Authorizing Provider: TABITHA HALL Magnesium Oxide -Mg Supplement 250 MG Oral*12 Tab*11 Sig: TAKE 1 TABLET BY MOUTH ONCE A DAY ON FRIDAY, FRIDAY, AND FRIDAY ONLY.Authorizing Provider: TABITHA HALL Vitamin C 500 MG Oral Tablet (Ascorbic Aci*30 Tab*11 Sig: TAKE 1 TABLET BY MOUTH IN THE MORNING.Authorizing Provider: TABITHA HALL Coenzyme Q-10 100 MG Oral Capsule 30 Cap*11 Sig: TAKE 1 CAPSULE BY MOUTH IN THE MORNING.Authorizing Provider: TABITHA HALL Oyster Shell Calcium w/D 500-5MG-MCG Oral*30 Tab*11 Sig: TAKE 1 TABLET BY MOUTH IN THE MORNING. (OSTEOPOROSIS)Authorizing Provider: TABITHA HALL Gentle Iron 28-60-0.008-0.4 MG Oral Capsul*12 Cap*11 Sig: TAKE 1 CAPSULE BY MOUTH ONCE A DAY ON FRIDAY, FRIDAY, AND FRIDAY ONLY.Authorizing Provider: TABITHA HALLRefused Prescriptions: Disp Refills Trulicity 0.75 MG/0.5ML Subcutaneous Solut*2 mL 11 Sig: INJECT 0.75MG UNDER THE SKIN ONCE A WEEK.Refused By: TABITHA HALL NReason for Refusal: Course of treatment com plete * Telephone Encounter - yS Caraballo [facility] - 11/10/2024 12:36 PM EST Pending Prescriptions: Disp Refills Vitamin D3 50 MCG (2000 UT) Oral Tablet [P*30 Tab*11 Sig: TAKE 1 TABLET BY MOUTH IN THE MORNING. 1 DAILY. Acetaminophen 325 MG Oral Tablet [Pharmacy*180 Ta*11 Sig: Take 2 Tablets by mouth 3 times a day. Trulicity 0.75 MG/0.5ML Subcutaneous Solut*2 mL 11 Sig: INJECT 0.75MG UNDER THE SKIN ONCE A WEEK. Magnesium Oxide -Mg Supplement 25 0 MG Oral*12 Tab*11 Sig: TAKE 1 TABLET BY MOUTH ONCE A DAY ON FRIDAY, FRIDAY, AND FRIDAY ONLY. Vitamin C 500 MG Oral Tablet [Pharmacy Med*30 Tab*11 Sig: Take 1 Tablet by mouth in the morning. Coenzyme Q-10 100 MG Oral Capsule [Pharmac*30 Cap*11 Sig: TAKE 1 CAPSULE BY MOUTH IN THE MORNING. Oyster Shell Calcium w/D 500-5 MG-MCG Oral*30 Tab*11 Sig: TAKE 1 TABLET BY MOUTH IN THE MORNING. (OSTEOPOROSIS) Gentle Iron 28-60-0.008-0.4 MG Oral Capsul*12 Cap*11 Sig: TAKE 1 CAPSULE BY MOUTH ONCE A DAY ON FRIDAY, FRIDAY, AND FRIDAY ONLY. * Telephone Encounter - Sy Caraballo [facility] - 11/10/2024 12:36 PM EST Telepharmacy not authorized to fill for this medication per protocol. Please approve if appropriate. Pending Prescriptions: Disp Refills Vitamin D3 50 MCG (2000 UT) Oral Tablet [P*30 Tab*11 Sig: TAKE 1 TABLET BY MOUTH IN THE MORNING. 1 DAILY. Acetaminophen 325 MG Oral Tablet [Pharmacy*180 Ta*11 Sig: Take 2 Tablets by mouth 3 times a day. Trulicity 0.75 MG/0.5ML Subcutaneous Solut*2 mL 11 Sig: INJECT 0.75MG UNDER THE SKIN ONCE A WEEK. Magnesium Oxide -Mg Supplement 250 MG Oral*12 Tab*11 Sig: TAKE 1 TABLET BY MOUTH ONCE A DAY ON FRIDAY, FRIDAY, AND FRIDAY ONLY. Vitamin C 500 MG Oral Tablet [Pharmacy Med*30 Tab*11 Sig: Take 1 Tablet by mouth in the morning. Coenzyme Q-10 100 MG Oral Capsule [Pharmac*30 Cap*11 Sig: TAKE 1 CAPSULE BY MOUTH IN THE MORNING. Oyster Shell Calcium w/D 500-5 MG-MCG Oral*30 Tab*11 Sig: TAKE 1 TABLET BY MOUTH IN THE MORNING. (OSTEOPOROSIS) Gentle Iron 28-60-0.008-0.4 MG Oral Capsul*12 Cap*11 Sig: TAKE 1 CAPSULE BY MOUTH ONCE A DAY ON FRIDAY, FRIDAY, AND FRIDAY ONLY. 08/26/2024 (in office), 10/31/2020 (telemedicine) 01/05/2025 If no future appointments scheduled, and last appointment is greater than a year ago, please schedule patient for a follow-up appointment Last date the medication was ordered: Pharmacy: [facility] Is this request for a controlled substance? No Urine Drug Screen:No results found for this or any previous visit. Patient Phone Numbers Labs: Lab Results Component Value Date/Time CREAT 0.7 07/15/2024 06:30 AM CREAT 0.5 10/12/2020 10:00 AM POTASSIUM 5.3 (H) 07/15/2024 06:30 AM POTASSIUM 4.6 10/12/2020 10:00 AM TSH 2.18 05/04/2024 12:11 PM TSH 2.35 07/27/2020 09:31 AM LDL 57 03/05/2024 08:29 AM LDL 125 06/06/2021 07:59 AM LDL 116 07/27/2020 09:31 AM LDL 07/27/2020 09:31 AM Uninterpretable, recommend direct LDL cholesterol testing. ALT 21 03/05/2024 08:29 AM ALT 16 08/17/2020 04:32 PM HGBA1C 7.9 (H) 06/28/2024 01:56 PM HGBA1C 7.0 (H) 04/23/2023 11:05 AM HGBA1C 7.2 (H) 07/27/2020 09:31 AM documented in this encounter Plan of Treatment Upcoming Encounters Date Type Department Care Team (Late st Contact Info) Description 11/19/2024 10:30 AM EST Imaging Radiology [facility] 2nd [facility] 132 [facility] [place] [address] 11/19/2024 11:30 AM EST Imaging Vascular Lab, [address] 132 [facility] [place] [address] 12/27/2024 2:20 PM EDT Office Visit Neurology [facility] [place] [address] Alvin Aragon MD 200 [facility] [place] [address] 01/05/2025 9:10 AM EDT Office Visit Pharmacy, [facility] [place] [address] [facility] [place] [address] Pharmacist1, [facility] 200 [facility] [place] [address] 01/05/2025 9:40 AM EDT Office Visit General Internal Medicine [facility] [place] [address] [facility] [place] [address] Tabitha Hall MD 200 [facility] [place] [address] 03/23/2025 9:30 AM EDT Nurse Only Rheumatology [facility] 132 [facility] [place] [phone] Nurse Arlene Gary[address] [place] [address] 05/17/2025 3:00 PM EDT Office Visit General Internal Medicine [facility] [place] [address] [place], [place] [address] Tabitha Hall MD 200 [facility] [place] [address] 10/10/2025 9:40 AM EST Office Visit Rheumatology [facility] [address] [place] [phone] Agustin Erickson MD [address] [place], [place] [address] Health Maintenance Due Date Last Done Comments [...] D LEVEL ONCE IN A LIFETIME-USE SMARTSET# [id number] Completed 06/28/2024, 06/12/2023, 10/24/2021, Additional history exists [...] as of this encounter Visit Diagnoses Diagnosis Age-related osteoporosis with current pathological fracture with routine healing, subsequent encounter Generalized OA Generalized osteoarthrosis, unspecified site Controlled type 2 diabetes mellitus with hyperglycemia, without long-term current use of insulin (HCC) documented in this encounter Advance Directives Documents on File Type Date Recorded 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
--- OUTSIDE RECORDS SUMMARY | 2024-11-17 01:02 | External Medical Summary | Summary of Care ---
Author Name Unknown Organization [facility] Address [address] , [place] Care Team Providers Care Creative Lead Name Role Phone Tabitha Hall MD Primary Care Provider + Reason for Visit * Reason Onset Date Comments FYI 11/11/2024 Encounter Details Date Type Department Care Team (Late st Contact Info) Description 11/11/2024 Telephone Pharmacy, [facility] [place] [address] [facility] [place] [address] Pharmacist1, [facility] [address] FYI (/) Allergies Active Allergy Reactions [...] B-12 injection once a month. 10 Each 022 Active FreeStyle French 3 [place] DeviceIndications: DM (diabetes mellitus), type 2, uncontrolled, [...] large muscle every 30 days. 1 mL 024 Active Rosuvastatin Calcium 5 MG Oral [...] to breakfast or other meds) 90 Tablet Active Vitamin B12 100 MCG Oral Tablet Take 1 Tablet by mouth in the morning. 30 Tablet Active Sodium Chloride 1 GM Oral TabletIndications: SIADH (syndrome of inappropriate ADH production) ([facility]) Take 1 Tablet by mouth in the morning. 90 Tablet 3 Active Trulicity 0.75 MG/0.5ML Subcutaneous Solution Auto-injector (Dulaglutide)Indic ations:Controlled type 2 diabetes mellitus with hyperglycemia, without long-term current use of insulin ([facility]) Inject 0.75 mg under the skin [...] long-term current use of insulin ([facility]) Take 1 Tablet by mouth 2 [...] long-term current use of insulin ([facility]) Take 1 Capsule by mouth in the [...] Telephone Encounter - Yunior Phillips RPh - 11/11/2024 10:36 AM EST Patient Phone Numbers BG is at goal for patient. No follow up needed. Yunior Sanchez RPh, [facility] Clinical Pharmacist [facility]ication [facility] 11/11/2024, 10:37 AM * Telephone Encounter - Cee Khan CPhT - 11/11/2024 9:33 AM EST Received fax from [facility] stating patient's BG this morning was 178, also scanned the fax into the chart, thank you. Cee Khan CPhT, [facility] documented in this encounter Plan of Treatment Upcoming Encounters Date Type Department Care Team (Late st Contact Info) Description 11/19/2024 10:30 AM EST Imaging Radiology [address] 132 [facility] [place] [address] 11/19/2024 11:30 AM EST Imaging Vascular Lab, [address] 132 [facility] [place] [address] 12/27/2024 2:20 PM EDT Office Visit Neurology [facility] 200 [facility] [place], [place] [address] Alvin Aragon MD 200 [facility] [place], [place] [address] 01/05/2025 9:10 AM EDT Office Visit Pharmacy, [facility] 200 [facility] [place], [place] [address] Pharmacist1, [facility] [address] [place], [place] [address] 01/05/2025 9:40 AM EDT Office Visit General Internal Medicine [facility] [address] [place], [place] [address] Tabitha Hall MD 200 [facility] [place], [place] [address] 03/23/2025 9:30 AM EDT Nurse Only [facility] [address] [place] [phone] Nurse Arlene Gary [address] [place], [place] [address], [place] [address] 05/17/2025 3:00 PM EDT Office Visit General Internal Medicine [facility] [address] [place], [place] [address] Tabitha Hall MD 200 [facility] [place], [place] [address] 10/10/2025 9:40 AM EST Office [facility] [address] [place] [phone] Agustin Erickson MD [address] [place], [place] [address] Health Maintenance Due Date Last Done Comments [...] Additional history exists DXA Scan 08/18/2026 08/18/2024, 110 11/2021, 07/31/2020 DTap/Tdap Vaccines (3 - Td or Tdap) 06/27/2033 06/27/2023, 06/03/2012 Zoster Vaccines Completed 07/01/2019, 03/06, 10/06/2009 Pneumococcal Vaccine: 50+ Years Completed 06/07/2021, 01/07/2018, 03/21/2015 Influenza Vaccine (FLU shot) Completed , 06/12/2023, 07/24/2021, Additional history exists VITAMIN D LEVEL ONCE IN A LIFETIME-USE SMARTSET# [id number] Completed 06/28/2024, 06/12/2023, 10/24/2021, Additional history exists [...] Documents on File Type Date Recorded 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
--- OUTSIDE RECORDS SUMMARY | 2024-11-17 01:02 | External Medical Summary | Summary of Care ---
Author Name Unknown Organization [facility] Address [address] [place] [address] Phone [phone] Care Team Providers Care Technical Photographer Name Role Phone Tabitha Hall MD Primary Care Provider + Reason for Visit * Reason Comments Diabetes Follow-Up Dosage Adjustment In Person (Anticoag Cl inic) Encounter Details Date Type Department Care Team (Late st Contact Info) Description 11/10/2024 10:30 AM EST Office Visit Pharmacy, [facility] [address] [place] [address] Pharmacist1, [facility] 200 [place] [address] Controlled type 2 diabetes mellitus with hyperglycemia, without long-term current use of insulin ([facility])* Allergies Active Allergy Reactions Criticality Noted Date Comments Ibuprofen 06/11/2016 Alendronate Sodium 08/13/2016 Celecoxib Nausea/vomiting 12/22/2013 Cheese Flavoring Agent (Non-Screening) 08/27/2013 Monosodium Glutamate 08/13/2016 Penicillin G 06/11/2016 Salicylates Unknown 05/17/2021 Sulfa Antibiotics 06/11/2016 documented as of this encounter (statuses as of 11/10/2024) Medications BD Insulin Syringe 25G X 5/8" 1 ML (Insulin Syringe-Needle U-100)Indications:C ontrolled type 2 diabetes mellitus with hyperglycemia, without long-term current use of insulin (HCC),Type 2 diabetes mellitus with hemoglobin A1c goal of less than 8.0% (HCC) Use to inject B-12 injection once a month. 10 Each 08/23/20 Active FreeStyle French 3 Pinckney DeviceIndications:D M (diabetes mellitus), type 2, uncontrolled, with hyperosmolarity (HCC) Use as directed. 1 Each 03/29/20 24 Active FreeStyle French 3 Plus SensorIndications:D M (diabetes mellitus), type 2, uncontrolled, with hyperosmolarity (HCC) Change sensor every 15 days. 2 Each 07/29/20 Active Tylenol 325 MG Oral Capsule (Acetaminophen) Take by mouth. Active Magnesium Hydroxide 400 MG/5ML Oral Suspension (Mom) Take by mouth daily as needed for Constipation. Active Hydrocortisone 1 % External Cream Apply topically to affected area 2 times a day. Active Cyanocobalamin 1000 MCG/ML Injection Solution (Cyanocobalamin)Ind ications:B12 deficiency Inject 1 mL into a large muscle every 30 days. 1 mL 08/26/20 Active Rosuvastatin Calcium 5 MG Oral Tablet (Crestor)Indication s:Hyperlipidemia with target LDL less than 100,Hyperlipidemia, unspecified hyperlipidemia type Take 1 Tablet by mouth once a day on Friday, Friday, and Friday only. 12 Tablet 2 11/03/19 25 Active BD SafetyGlide Needle 25G X 1" (Needle (Disp)) Use for vitamin b12 injections monthly. 12 Each 11/02/19 25 Active CoQ10 100 MG Oral CapsuleIndications: Controlled type 2 diabetes mellitus with hyperglycemia, without long-term current use of insulin (HCC) Take 1 Capsule by mouth in the morning. 30 Capsule 11/04/19 25 Active Cholecalciferol 50 MCG (1999 [place]) Oral TabletIndications:A ge-related osteoporosis with current pathological fracture with routine healing, subsequent encounter Take 1 Tablet by mouth in the morning. 1 daily. 30 Tablet 11/04/19 25 Active Calcium Carbonate-Vitamin D 500-5 MG-MCG Oral TabletIndications:A ge-related osteoporosis with current pathological fracture with routine healing, subsequent encounter Take 1 Tablet by mouth in the morning. 30 Tablet 11/04/19 25 Active Acetaminophen 325 MG Oral Tablet (Tylenol)Indication s:Generalized OA Take 2 Tablets by mouth 3 times a day. 180 Tablet 11/04/19 25 Active Diclofenac Sodium 1 [...] [facility]) Take 1 Capsule by mouth once a day on Friday, , and Friday only. 12 Capsule 11/04/19 25 Active Levothyroxine Sodium 25 MCG Oral Tablet (Levoxyl)Indication s:Acquired hypothyroidism Take by mouth: 2 pills once daily Friday to and take one pill Friday to Friday.(at least 30 min prior to breakfast or other meds) 90 Tablet 5 11/04/19 25 Active Magnesium 250 MG Oral Tablet Take 1 Tablet by mouth once a day on Friday, Friday, and Friday only. 12 Tablet 11/05/19 25 Active Vitamin C 500 MG Oral Tablet (Ascorbic Acid)Indications:Co ntrolled type 2 diabetes mellitus with hyperglycemia, without long-term current use of insulin ([facility]) Take 1 Tablet by mouth in the morning. 30 Tablet 11/04/19 25 Active Vitamin B12 100 MCG Oral Tablet Take 1 Tablet by mouth in the morning. 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 90 Tablet 3 11/04/19 25 Active Trulicity 0.75 MG/0.5ML Subcutaneous Solution Auto-injector (Dulaglutide)Indica tions:Controlled type 2 diabetes mellitus with hyperglycemia, without long-term current use of insulin ([facility]) Inject 0.75 mg under the skin once a week. 2 mL 5 11/04/19 25 Active Travoprost (RENEA Free) 0.004 [...] insulin (HCC) Take 1 Tablet by mouth 2 times [...] in evening 30 Capsule 11/04/19 25 Active documented as of this encounter (statuses as of 11/10/2024) Active Problems Problem Noted Date Diagnosed Date [...] as of this encounter (statuses as of 11/10/2024) Resolved Problems Problem Noted Date Diagnosed Date Resolved Date DM (diabetes mellitus), type 2, uncontrolled, with hyperosmolarity 06/29/2024 07/13/2024 Dislocation closed, finger, subsequent encounter 09/06/2020 07/13/2024 documented as of this encounter (statuses as of 11/10/2024) Immunizations Name Administration Dates Next Due COVID-19 [...] PM EST documented as of this encounter Progress Notes * Yunior Phillips, [facility] - 11/10/2024 10:33 AM EST Medication Therapy Disease Management Clinic - Diabetes Management Progress Note Lilibeth Kong, identified by name and date of , is a 84 year old female being seen for diabetes management/education. Patient presents for return diabetic visit. DIABETES: Current diabetic medications: Metformin ER 500mg 1 tabs BID with meals (Dr. Hall did not want dose decreased) Trulicity 0.75mg weekly Medication Injection Site: N/A Lifestyle: Diet: she is eating more at [facility] Lifestyle: None Therapy considerations: None Medication: None Glucose Review/SMBG: Readings obtained from patient documented BG logbook Pre am -Sep 237 168 159 124 163 148 151 154 124 143 158 150 157 154 148 158 156 175 169 153 168 147 166 151 141 164 164 152 206 179 188 -Oct 178 116 167 151 166 128 156 156 162 146 128 155 191 139 148 163 154 186 176 154 154 147 166 166 160 188 164 165 163 168 166 194 139 163 169 187 Pre am Average 161 Hi 237 Lo 116 Range 121 Hypoglycemia: Does your blood sugar go below 70 mg/dL? No Hyperglycemia symptoms present: polyurea, polydipsia, confusion Recent Labs Units 11/10/24 1037 06/28/24 1356 03/05/24 0829 HEMOGLOBIN A1C - [facility] % -- 7.9* 10.7* HEMOGLOBIN A1C POCT - [facility] % 7.9* -- -- Recent Labs Units 11/10/24 1147 07/15/24 0630 07/12/24 0550 ESTIMATED GLOMERULAR FILTRATION RATE - [facility] mL/min 86 84 84 CREATININE - [facility] mg/dL 0.6 0.7 0.7 Lab Results Component Value Date/Time CREATININE - [facility] 0.6 11/10/2024 11:47 AM CREATININE - [facility] 0.7 07/15/2024 06:30 AM CREATININE - [facility] 0.7 07/12/2024 05:50 AM CREATININE - [facility] 0.5 10/12/2020 10:00 [...] goal BP Readings from Last 3 Encounters: 11/10/24 138/80 08/26/24 138/82 08/24/24 149/89 Blood pressure at goal: yes HYPERLIPIDEMIA: Does patient have clinical ASCVD? No, is patient LDL less than 70mg/dL? Yes HEALTH MAINTENANCE REVIEW: Health Maintenance Due Topic Date Due Adult Wellness Visit Never done Diabetic Foot Exam 01/15/2024 Depression Monitoring 01/15/2024 COVID-19 Vaccine ( season) 2024 ASSESSMENT & PLAN: ICD-10-CM 1. Controlled type 2 diabetes mellitus with hyperglycemia, without long-term current use of insulin(HCC) E11.65 BG Readings - Blood sugars controlled. Medications - Reviewed current regimen, patient is adherent to regimen. She and her family are complaining of abdominal distension and would like to try holding Trulicity to see if it improves.. Diet, Exercise, Lifestyle - She is eating more . Discussed with patient today. Patient is agreeable to SMBG 1 time(s) daily. Patient aware to contact clinic if any hypoglycemia before next visit. MEDICATION CHANGES: yes, see below; preferred pharmacy: [facility] Medications: Metformin ER 500mg 1 tabs BID with meals (Dr. Hall did not want dose decreased) Trulicity 0.75mg weekly HEALTH MAINTENANCE INTERVENTIONS: Labs: Up to Date Immunizations: Up to Date Foot Exam: Up to Date Eye Exam: Up to Date Annual Wellness Visit: needs scheduled I spent a total of 30-39 minutes (exact time 34 mins) on the date of service in preparation, delivery, and documentation of the care provided to Lilibeth Kong excluding any time spent in the performance of separately billed services or time spent by another provider/QHP. FOLLOW UP: Return to clinic in 8 weeks 01/05/2025 Yunior Sanchez RPh, CORTESE Clinical Pharmacist - Stopper Maker Helper Medication Therapy Management Clinic 11/10/2024, 10:33 AM documented in this encounter Plan of Treatment Upcoming Encounters Date Type Department Care Team (Late st Contact Info) Description 11/19/2024 10:30 AM EST Imaging Radiology [address] [place] [address] 11/19/2024 11:30 AM EST Imaging Vascular Lab, [address] [place] [address] 12/27/2024 2:20 PM EDT Office Visit Neurology [facility]andes [place] 200 [facility] [place] [address] Alvin Aragon MD [address] [place] [address] 01/05/2025 9:10 AM EDT Office Visit Pharmacy, [facility] [address] [place], [place] [address] Pharmacist1, [facility] 200 [facility] [place], [place] [address] 01/05/2025 9:40 AM EDT Office Visit General Internal Medicine [facility] 200 [facility] [place] [address] Tabitha Hall MD 200 [facility] [place] [address] 03/23/2025 9:30 AM EDT Nurse Only Rheumatology [facility] [address] [place] [phone] Abdirahman Nurse Arlene Barajas [facility] [place], [place] [address] 05/17/2025 3:00 PM EDT Office Visit General Internal Medicine [facility] 200 [facility] [place] [address] Tabitha Hall MD 200 [facility] [place], [place] [address] 10/10/2025 9:40 AM EST Office Visit Rheumatology [facility] [address] [place] [phone] Agustin Erickson MD [address] [place], [place] [address] Health Maintenance Due Date Last Done Comments Adult Wellness Visit 02/03/2004 Depression Monitoring 01/15/2024 01/14/2023 COVID-19 Vaccine ( season) 2024 06/25/2024, 07/22/2023, 02/21/2023, Additional history exists Albumin/Creatinine Ratio 03/05/2025 024, 01/14/2023, 04/15/2022, Additional history exists Diabetic Eye Exam 04/14/2025 04/14/2024, , 01/25/2021, Additional history exists TSH 05/04/2025 11/10/2024, 04/07, 03/05/2024, Additional history exists HbA1c 05/10/2025 11/10/2024, 06/07, 03/05/2024, Additional history exists Diabetic Foot Exam 11/10/2025 11/10/2024, 0 01/14/2023, 06/07/2021, Additional history exists DXA Scan 08/18/2026 08/18/2024, 1111/2021, 07/31/2020 DTap/Tdap Vaccines (3 - Td or Tdap) 06/27/2033 06/27/2023, 06/03/2012 Zoster Vaccines Completed 07/01/2019, 03/06, 10/06/2009 Pneumococcal Vaccine: 50+ Years Completed 06/07/2021, 01/07/2018, 03/21/2015 Influenza Vaccine (FLU shot) Completed , 06/12/2023, 07/24/2021, Additional history exists VITAMIN D LEVEL ONCE IN A LIFETIME-USE SMARTSET# [id number] Completed 06/28/2024, 06/12/2023, 10/24/2021, Additional history exists [...] Procedure Name Priority Date/Time Associated Diagnosis Comments HEMOGLOBIN A1C, POINT OF CARE NOHEMY 11/10/2024 10:37 AM EST documented in this encounter Results * (ABNORMAL) HEMOGLOBIN A1C, POINT OF CARE (11/10/2024 10:37 AM EST) Hemoglobin A1c 7.9(H) 4.0 - 5.6 % 11/10/2024 2:47 PM EST [facility] [place] 56-02 Blood 11/10/2024 10:3 7 AM EST 11/10/2024 2:47 PM EST [facility] Pharmacist1 LAB POINT OF C ARE TEST DOCKED DEVICE UNSOLICITED RESULTS Final Result [facility] [place] [facility] [address] documented in this encounter Visit Diagnoses Diagnosis Controlled type 2 diabetes mellitus with hyperglycemia, without long-term current use of insulin (HCC)- Primary documented in this encounter Advance Directives Documents on File Type Date Recorded 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 [address] PCP - General Internal Medicine 07/27/20 documented as of this encounter
--- OUTSIDE RECORDS SUMMARY | 2024-11-17 01:02 | External Medical Summary | Summary of Care ---
Author Name Unknown Organization [facility] Address [address] [place] [address] Phone [phone] Care Team Providers Care Film Historian Name Role Phone Tabitha Hall MD Primary Care Provider + Reason for Visit * Reason Comments Diabetes Follow-Up Dosage Adjustment In Person (Anticoag Cl inic) Encounter Details Date Type Department Care Team (Late st Contact Info) Description 11/10/2024 10:30 AM EST Office Visit Pharmacy, [facility] [address] [place] [address] Pharmacist1, [facility] [address] [place] [address] Controlled type 2 diabetes mellitus with hyperglycemia, without long-term current use of insulin ([facility])* Allergies Active Allergy Reactions Criticality Noted [...] Each 1 022 Active FreeStyle French 3 [place] DeviceIndications: DM (diabetes mellitus), type 2, uncontrolled, [...] SIADH (syndrome of inappropriate ADH production) ([facility]) Take 1 Tablet by mouth in the morning. 90 Tablet 3 Active Trulicity 0.75 MG/0.5ML Subcutaneous Solution Auto-injector (Dulaglutide)Indic ations:Controlled type 2 diabetes mellitus with hyperglycemia, without long-term current use of insulin ([facility]) Inject 0.75 mg under the skin once a week. 2 mL Active Travoprost (RENEA Free) 0.004 % Ophthalmic Solution (Travatan Z)Indications:Glau coma of both eyes, unspecified glaucoma type Instill 1 Drop into both eyes at bedtime. 1 daily 2.5 mL 2 Active metFORMIN HCl ER 500 MG Oral Tablet Extended Release 24 Hour (Glucophage XR)Indications:Con trolled type 2 diabetes mellitus with hyperglycemia, without long-term current use of insulin ([facility]) Take 1 Tablet by mouth 2 [...] Progress Notes * Yunior Phillips, [facility] - 11/10/2024 10:33 AM EST Medication Therapy [...] Lifestyle: Diet: she is eating more at [facility] Lifestyle: None Therapy considerations: None Medication: None [...] 160 188 164 165 163 168 166 -Nov 194 139 163 169 187 Pre am [...] MEDICATION CHANGES: yes, see below; preferred pharmacy: [facility] Medications: Metformin ER 500mg 1 tabs BID with meals (Dr. Hall did not want dose decreased) Trulicity 0.75mg weekly - hold for 4 weeks to see if stomach distension improves. HEALTH MAINTENANCE INTERVENTIONS: Labs: Up to Date [...] in 8 weeks 01/05/2025 Yunior Sanchez RPh, DANYEL Clinical Pharmacist - Screedman/Laborer Medication Therapy Management Clinic 11/10/2024, 10:33 AM documented in this encounter Plan of Treatment Upcoming Encounters Date Type Department Care Team (Late st Contact Info) Description 11/19/2024 10:30 AM EST Imaging Radiology [facility] [address] [facility] [place] [address] 11/19/2024 11:30 AM EST Imaging Vascular Lab, [facility] [address] [place] [address] 12/27/2024 2:20 PM EDT Office Visit Neurology [facility] [address] [facility] [address] [place], [place] [address] Alivn Aragon MD 200 [facility] [place], [place] [address] 01/05/2025 9:10 AM EDT Office Visit Pharmacy, [facility] [place] 200 [facility] [place], [place] [address] Pharmacist1, [facility] [address], [place] [address] 01/05/2025 9:40 AM EDT Office Visit General Internal Medicine [facility] 200 [facility] [place], [place] [address] Tabitha Hall MD [address] [facility] [address], [place] [address] 03/23/2025 9:30 AM EDT Nurse Only [facility] [address] [place] [phone] Abdirahman, Nurse Arlene [facility] [employer] [place], [place] [address] 05/17/2025 3:00 PM EDT Office Visit General Internal Medicine [facility] [address] [place], [place] [address] Tabitha Hall MD [address] [facility] [address], [place] [address] 10/10/2025 9:40 AM EST [facility] [address] [place] [phone] Agustin Erickson MD [address] [place], [place] [address] Health Maintenance Due Date Last Done Comments [...] D LEVEL ONCE IN A LIFETIME-USE SMARTSET# [id number] Completed 06/28/2024, 06/12/2023, 10/24/2021, Additional history exists [...] - 5.6 % 11/10/2024 2:47 PM EST [facility] 56-02 Blood 11/10/2024 10:3 7 AM EST 11/10/2024 2:47 PM EST [facility] Pharmacist1 LAB POINT OF C ARE TEST DOCKED DEVICE UNSOLICITED RESULTS Final Result [facility] 56[facility]02 [facility] [address] documented in this encounter Visit Diagnoses Diagnosis Controlled type 2 diabetes mellitus with hyperglycemia, without long-term current use of insulin (HCC)- Primary documented in this encounter Advance Directives Documents on File Type Date Recorded Patient Environmental Services Tech Expl anation POLST 06/06/2021 POLST LIANNE REESE ORDERS FOR LIFE-SUSTAINING TREATMENT Care Teams Film Historian Relationship Specialty Start Date End Date Tabitha Hall MD 200 [facility] [address] PCP - General Internal Medicine 07/27/20 documented as of this encounter
--- OUTSIDE RECORDS SUMMARY | 2024-11-17 01:02 | External Medical Summary | Summary of Care ---
Author Name Unknown Organization [facility] Address [address] [place] [address] Phone [phone] Care Team Providers Care Electro Plater Name Role Phone Tabitha Hall MD Primary Care Provider + Reason for Visit * Reason Comments Diabetes Follow-Up Dosage Adjustment In Person (Anticoag Cl inic) Encounter Details Date Type Department Care Team (Late st Contact Info) Description 11/10/2024 10:30 AM EST Office Visit Pharmacy, [facility] 200 [place] [address] Pharmacist1, [facility] 200 [facility] [place] [address] Controlled type 2 diabetes mellitus with hyperglycemia, [...] 10 Each 08/23/20 Active FreeStyle French 3 [place] DeviceIndications:D M (diabetes mellitus), type 2, uncontrolled, [...] use of insulin ([facility]) Take 1 Capsule by mouth once a [...] use of insulin ([facility]) Take 1 Tablet by mouth in the morning. 30 Tablet 11/04/19 25 Active Vitamin B12 100 MCG Oral Tablet Take 1 Tablet by mouth in the morning. 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 90 Tablet 3 11/04/19 25 Active Trulicity 0.75 MG/0.5ML Subcutaneous Solution Auto-injector (Dulaglutide)Indica tions:Controlled type 2 diabetes mellitus with hyperglycemia, without long-term current use of insulin ([facility]) Inject 0.75 mg under the skin [...] Yunior Phillips, [facility] - 11/10/2024 10:33 AM EST Medication [...] Lifestyle: Diet: she is eating more at [facility] Lifestyle: None Therapy considerations: None Medication: [...] Yunior Sanchez RPh, CORTESE Clinical Pharmacist - Service Technician Medication Therapy Management Clinic 11/10/2024, 10:33 AM documented in this encounter Plan of Treatment Upcoming Encounters Date Type Department Care Team (Late st Contact Info) Description 11/19/2024 10:30 AM EST Imaging Radiology [address] [place] [address] 11/19/2024 11:30 AM EST Imaging Vascular Lab, [address] [place] [address] 12/27/2024 2:20 PM EDT Office Visit Neurology Gilbert Fernandes [place] 200 [facility] [place] [address] Alvin Aragon MD [address] [place] [address] 01/05/2025 9:10 AM EDT Office Visit Pharmacy, [facility] [address] [place], [place] [address] Pharmacist1, [facility] 200 [facility] [place], [place] [address] 01/05/2025 9:40 AM EDT Office Visit General Internal Medicine [facility] 200 [facility] [place] [address] Tabitha Hall MD 200 [facility] [place] [address] 03/23/2025 9:30 AM EDT Nurse Only Rheumatology [facility] [address] [place] [phone] Abdirahman Nurse Arlene Barajas [facility] [employer] [place], [place] [address] 05/17/2025 3:00 PM EDT Office Visit General Internal Medicine [facility] 200 [facility] [place] [address] Tabitha Hall MD 200 [facility] [place], [place] [address] 10/10/2025 9:40 AM EST Office Visit Rheumatology [facility] [address] [place] [phone] Agustin Erickson MD [address] [place], [place] [address] Health Maintenance Due Date Last Done Comments [...] D LEVEL ONCE IN A LIFETIME-USE SMARTSET# [id number] Completed 06/28/2024, 06/12/2023, 10/24/2021, Additional history exists [...] 5.6 % 11/10/2024 2:47 PM EST [facility] [place] 56-02 Blood 11/10/2024 10:3 7 AM EST 11/10/2024 2:[address] 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
--- OUTSIDE RECORDS SUMMARY | 2024-11-17 01:02 | External Medical Summary | Summary of Care ---
Author Name Unknown Organization [facility] Address [address] [place] [address] Phone [phone] Care Team Providers Care Electronic Page Makeup System Operator Name Role Phone Tabitha Hall MD Primary Care Provider + Reason for Visit * Reason Comments Diabetes Follow-Up Dosage Adjustment In Person (Anticoag Cl inic) Encounter Details Date Type Department Care Team (Late st Contact Info) Description 11/10/2024 10:30 AM EST Office Visit Pharmacy, [facility] 200 [place] [address] Pharmacist1, [facility] 200 [facility] [place] [address] Controlled type 2 diabetes mellitus with hyperglycemia, without long-term current use of insulin ([facility])* Allergies Active Allergy Reactions Criticality Noted Date [...] 10 Each 08/23/20 Active FreeStyle French 3 Tonica DeviceIndications:D M (diabetes mellitus), type 2, uncontrolled, [...] long-term current use of insulin ([facility]) Take 1 Capsule by mouth once a [...] long-term current use of insulin ([facility]) Take 1 Tablet by mouth in the morning. 30 Tablet 11/04/19 25 Active Vitamin B12 100 MCG Oral Tablet Take 1 Tablet by mouth in the morning. 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 90 Tablet 3 11/04/19 25 Active Trulicity 0.75 MG/0.5ML Subcutaneous Solution Auto-injector (Dulaglutide)Indica tions:Controlled type 2 diabetes mellitus with hyperglycemia, without long-term current use of insulin ([facility]) Inject 0.75 mg under the [...] this encounter Progress Notes * Yunior Phillips, [facility] - 11/10/2024 10:33 AM EST Medication Therapy [...] Lifestyle: Diet: she is eating more at [facility] Lifestyle: None Therapy considerations: None Medication: None [...] Yunior Sanchez RPh, CORTESE Clinical Pharmacist - Couples Therapist [facility] 11/10/2024, 10:33 AM documented in this encounter Plan of Treatment Upcoming Encounters Date Type Department Care Team (Late st Contact Info) Description 11/19/2024 10:30 AM EST Imaging Radiology [address] [place] [address] 11/19/2024 11:30 AM EST Imaging Vascular Lab, [address] [place] [address] 12/27/2024 2:20 PM EDT Office Visit Neurology [facility] Fernandes [place] 200 [facility] [place] [address] Alvin Aragon MD [address] [place] [address] 01/05/2025 9:10 AM EDT Office Visit Pharmacy, [facility] [address] [place], [place] [address] Pharmacist1, [facility] 200 [facility] [place], [place] [address] 01/05/2025 9:40 AM EDT Office Visit General Internal Medicine [facility] 200 [facility] [place] [address] Tabitha Hall MD 200 [facility] [place] [address] 03/23/2025 9:30 AM EDT Nurse Only Rheumatology [facility] [address] [place] [phone] Abdirahman Nurse Arlene Barajas [facility] [employer] [place], [place] [address] 05/17/2025 3:00 PM EDT Office Visit General Internal Medicine [facility] 200 [facility] [place] [address] Tabitha Hall MD 200 [facility] [place], [place] [address] 10/10/2025 9:40 AM EST Office Visit Rheumatology [facility] [address] [place] [phone] Agustin Erickson MD [address] [place], [place] [address] Health Maintenance Due Date Last Done Comments [...] D LEVEL ONCE IN A LIFETIME-USE SMARTSET# 08165 Completed 06/28/2024, 06/12/2023, 10/24/2021, Additional history exists [...] 5.6 % 11/10/2024 2:47 PM EST [facility] [place] 56-02 Blood 11/10/2024 10:3 7 AM EST 11/10/2024 2:47 PM EST [facility] Pharmacist1 LAB POINT OF C ARE TEST DOCKED DEVICE UNSOLICITED RESULTS Final Result [facility] [place] [facility] [address] documented in this encounter Visit Diagnoses Diagnosis Controlled type 2 diabetes mellitus with hyperglycemia, without long-term current use of insulin (HCC)- Primary documented in this encounter Advance Directives Documents on File Type Date Recorded Patient Vacuum Kettle Cook Expl anation POLST 06/06/2021 POLST LIANNE REESE ORDERS FOR LIFE-SUSTAINING TREATMENT Care Teams Electronic Page Makeup System Operator Relationship Specialty Start Date End Date Tabitha Hall MD [facility] [address] PCP - General Internal Medicine 07/27/20 documented as of this encounter
--- OUTSIDE RECORDS SUMMARY | 2024-11-17 01:03 | External Medical Summary | Summary of Care ---
Author Name Unknown Organization [facility] Address [address] [place] [address] Phone [phone] Care Team Providers Care Galley Hand Name Role Phone Tabitha Hall MD Primary Care Provider + Reason for Visit * Reason Onset Date Comments Forms Request 10/29/2024 Encounter Details Date Type Department Care Team (Late st Contact Info) Description 10/29/2024 Telephone General Internal Medicine [facility] 200 [facility] [place] [address] Tabitha Hall MD 200 [place] [address] Forms Request Allergies Active Allergy Reactions Criticality Noted Date Comments Ibuprofen 06/11/2016 Alendronate Sodium 08/13/2016 Celecoxib Nausea/vomiting 12/22/2013 Cheese Flavoring Agent (Non-Screening) 08/27/2013 Monosodium Glutamate 08/13/2016 Penicillin G 06/11/2016 Salicylates Unknown 05/17/2021 Sulfa Antibiotics 06/11/2016 documented as of this encounter (statuses as of 10/29/2024) Medications BD Insulin Syringe 25G X 5/8" 1 ML (Insulin Syringe-Needle U-100)Indications:C ontrolled type 2 diabetes mellitus with hyperglycemia, without long-term current use of insulin (HCC),Type 2 diabetes mellitus with hemoglobin A1c goal of less than 8.0% (HCC) Use to inject B-12 injection once a month. 10 Each 1 08/23/20 22 Active BD SafetyGlide Needle 25G X 1" (Needle (Disp)) Use for vitamin b12 injections monthly. 100 Each 5 01/12/20 24 Active FreeStyle French 3 Hawks DeviceIndications:D M (diabetes mellitus), type 2, uncontrolled, with hyperosmolarity (HCC) Use as directed. 1 Each 03/29/20 24 Active FreeStyle French 3 Plus SensorIndications:D M (diabetes mellitus), type 2, uncontrolled, with hyperosmolarity (HCC) Change sensor every 15 days. 2 Each 07/29/20 24 Active Vitamin C 500 MG Oral Tablet (Ascorbic Acid) Take 1 Tablet by mouth in the morning. 30 Tablet 08/18/20 Active Calcium Carbonate-Vitamin D 500-5 MG-MCG Oral TabletIndications:A ge-related osteoporosis with current pathological fracture with routine healing, subsequent encounter Take 1 Tablet by mouth in the morning. 30 Tablet 08/18/20 24 Active Cholecalciferol 50 MCG (2000 UT) Oral TabletIndications:A ge-related osteoporosis with current pathological fracture with routine healing, subsequent encounter Take 1 Tablet by mouth in the morning. 1 daily. 30 Tablet 08/18/20 24 Active CoQ10 100 MG Oral Capsule Take 1 Capsule by mouth in the morning. 30 Capsule 08/18/20 24 Active Diclofenac Sodium 1 % External Gel (Voltaren)Indicatio ns:Generalized OA Apply topically to affected area 4 times a day as needed for Other (2 gm to affected joint up to 4 x daily as needed). 350 g 08/18/20 24 Active Additional Information Patient taking differently:TopicalTID(AM/NOON/HS), Apply 2 gm to right shoulder 3x daily and 4 gm to low back 3x daily, Reported on 08/26/2024 Iron Glycinate 29 MG Oral Capsule Take 1 Capsule by mouth once a day on Friday, , and Friday only. 12 Capsule 08/19/20 Active Levothyroxine Sodium 25 MCG Oral Tablet (Levoxyl)Indication s:Acquired hypothyroidism Take by mouth: 2 pills once daily Friday to and take one pill Friday to Friday.(at least 30 min prior to breakfast or other meds) 45 Tablet 08/18/20 24 Active Magnesium 250 MG Oral Tablet Take 1 Tablet by mouth once a day on Friday, Friday, and Friday only. 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 30 Tablet 08/18/20 24 Active Acetaminophen 325 MG Oral Tablet (Tylenol)Indication s:Generalized OA Take 2 Tablets by mouth 3 times a day. 180 Tablet 08/18/20 24 Active Vitamin B12 100 MCG Oral Tablet Take 1 Tablet by mouth in the morning. 30 Tablet 08/18/20 24 Active Tylenol 325 MG Oral Capsule [...] Friday, Friday, and Friday only. 12 Tablet 09/29/20 24 Active DULoxetine HCl 30 MG Oral Capsule Delayed Release Particles (Cymbalta)Indicatio ns:Generalized OA,Recurrent major depressive disorder, in partial remission (HCC) TAKE ONE CAPSULE BY MOUTH EVERY MORNING along with duloxetine 60 mg capsule ( total dose 90mg) ,DO NOT CUT, CRUSH, OR CHEW. Takes in evening 30 Capsule 5 10/01/20 24 Active DULoxetine HCl 60 MG Oral Capsule Delayed Release Particles (Cymbalta)Indicatio ns:Generalized OA,Recurrent major depressive disorder, in partial remission (HCC) TAKE ONE CAPSULE BY MOUTH EVERY MORNING along with duloxetine 30 mg capsule ( total dose 90mg) ,DO NOT CUT, CRUSH, OR CHEW. Takes in evening 30 Capsule 5 10/01/20 24 Active Travoprost (RENEA Free) 0.004 % Ophthalmic Solution (Travatan Z)Indications:Glauc charlee of both eyes, unspecified glaucoma type Instill 1 Drop into both eyes at bedtime. 1 daily 2.5 mL 2 10/12/19 25 Active metFORMIN HCl ER 500 MG Oral Tablet Extended Release 24 Hour (Glucophage XR)Indications:Cont rolled type 2 diabetes mellitus with hyperglycemia, without long-term current use of insulin (HCC) TAKE 1 TABLET BY MOUTH 2 TIMES A DAY WITH MORNING AND EVENING MEALS. 60 Tablet 5 10/13/19 25 Active Trulicity 0.75 MG/0.5ML Subcutaneous Solution Auto-injector (Dulaglutide)Indica tions:Controlled type 2 diabetes mellitus with hyperglycemia, without long-term current use of insulin (HCC) Inject 0.75 mg under the skin once a week. 2 mL 10/26/19 25 Active documented as of this encounter (statuses as of 10/29/2024) Active Problems Problem Noted Date Diagnosed Date Multiple falls 08/26/2024 Hyperlipidemia with target LDL [...] as of this encounter (statuses as of 10/29/2024) Resolved Problems Problem Noted Date Diagnosed Date Resolved Date DM (diabetes mellitus), type 2, uncontrolled, with hyperosmolarity 06/29/2024 07/13/2024 Dislocation closed, finger, subsequent encounter 09/06/2020 07/13/2024 documented as of this encounter (statuses as of 10/29/2024) Immunizations Name Administration Dates Next Due COVID-19 [...] encounter Miscellaneous Notes * Telephone Encounter - Joleen Sandoval CMA - 10/29/2024 3:47 PM EST Faxed received from Jackie Varghese at [facility] for [facility] exercise program. Confirms that patient needs to have fall precautions in place during this. Signed by Dr. Hall and faxed back [phone]. documented in this encounter Plan of Treatment Upcoming Encounters Date Type Department Care Team (Late st Contact Info) Description 11/10/2024 10:30 AM EST Office Visit Pharmacy, [facility] [address] [place] [address] Pharmacist1, [facility] [address] [place], [place] [address] 11/10/2024 11:00 AM EST Office Visit General Internal Medicine [facility] [address] [place] [address] Tabitha Hall MD [address] [place] [address] 12/27/2024 2:20 PM EDT Office Visit Neurology [facility] [address] [place] [address] Alvin Aragon MD [address] [place] [address] 01/05/2025 9:40 AM EDT Office Visit General Internal Medicine [facility] [address] [place] [address] Tabitha Hall MD [address] [place] [address] 03/23/2025 9:30 AM EDT Nurse Only Rheumatology [facility] [address] [place] [phone] Abdirahman, Nurse Arlene Jenn [address] [place] [address] 10/10/2025 9:40 AM EST Office Visit Rheumatology [facility] [place], [facility] [address] [place] [phone] Agustin Erickson MD [address] [place] [address] Health Maintenance Due Date Last Done Comments Adult Wellness Visit 02/03/2004 Depression Monitoring 01/15/2024 01/14/2023 Diabetic Foot Exam 01/15/2024 01/14/2023, 0 06/07/2021, 07/27/2020 COVID-19 Vaccine ( season) 2024 06/25/2024, 07/22/2023, 02/21/2023, Additional history exists HbA1c 12/26/2024 06/28/2024, 02/05, 06/12/2023, Additional history exists Albumin/Creatinine Ratio 03/05/2025 024, 01/14/2023, 04/15/2022, Additional history exists Diabetic Eye Exam 04/14/2025 04/14/2024, , 01/25/2021, Additional history exists TSH 05/04/2025 05/04/2024, 02/05, 06/12/2023, Additional history exists DXA Scan 08/18/2026 08/18/2024, 11/2021, 07/31/2020 DTap/Tdap Vaccines (3 - Td or Tdap) 06/27/2033 06/27/2023, 06/03/2012 Zoster Vaccines Completed 07/01/2019, 03/06, 10/06/2009 Pneumococcal Vaccine: 50+ Years Completed 06/07/2021, 01/07/2018, 03/21/2015 Influenza Vaccine (FLU shot) Completed , 06/12/2023, 07/24/2021, Additional history exists VITAMIN D LEVEL ONCE IN A LIFETIME-USE SMARTSET# [id number] Completed 06/28/2024, 06/12/2023, 10/24/2021, Additional history exists [...] Documents on File Type Date Recorded Patient Care Transport Nurse Expl anation POLST 06/06/2021 POLST LIANNE REESE ORDERS FOR LIFE-SUSTAINING TREATMENT Care Teams Galley Hand Relationship Specialty Start Date End Date Tabitha Hall MD [address] [place] [address] PCP - General Internal Medicine 07/27/20 documented as of this encounter
--- OUTSIDE RECORDS SUMMARY | 2024-11-17 01:03 | External Medical Summary ---
Author Name Unknown Address Unknown Organization K[facility] [address] [place] [address] Laboratory Report Ordering Provider Test Date Status LLOYD PERKINS 11/10/2024 11:47:26 Final Observation Date Value Abnormality Reference (Units ) Status BUN 11/10/2024 11:47:26 14 6-20 (mg/dL) Final Creatinine 11/10/2024 11:47:26 0.6 0.5-1.0 (mg/dL) Final Glomerular filtration rate/1.73 sq M.predicted [Volume Rate/Area] in Serum, Plasma or Blood by Creatinine-based formula (CKD-EPI) 11/10/2024 11:47:26 86 >=60 (mL/min) Final eGFR is calculated based on the CKD-EPI 2020 equation. Sodium 11/10/2024 11:47:26 132 Below low normal 135 -146 (mmol/L) Final Potassium 11/10/2024 11:47:26 4.9 3.5-5.1 (m mol/L) Final Cl 11/10/2024 11:47:26 93 Below low normal 98- 107 (mmol/L) Final CO2 11/10/2024 11:47:26 26 22-32 (mmo l/L) Final Anion gap 11/10/2024 11:47:26 13 7-15 (mmol /L) Final Glucose 11/10/2024 11:47:26 170 Above high normal 70 -120 (mg/dL) Final Albumin 11/10/2024 11:47:26 4.3 3.8-5.0 (g /dL) Final AST (Aspartate aminotransferase) 11/10/2024 11:47:26 26 10-35 (U/L) Fin al Alk Phos 11/10/2024 11:47:26 67 35-130 (U/ L) Final Bilirubin, Total 11/10/2024 11:47:26 0.4 <=1 .2 (mg/dL) Final Calcium 11/10/2024 11:47:26 9.9 8.4-10.2 ( mg/dL) Final Protein 11/10/2024 11:47:26 6.9 6.0-8.3 (g /dL) Final ALT (Alanine aminotransferase) 11/10/2024 11:47:26 36 Above high normal 10-35 (U/L) Final Performing Location [facility] [address] [place] [address]
--- OUTSIDE RECORDS SUMMARY | 2024-11-17 01:03 | External Medical Summary | Summary of Care ---
Author Name Unknown Organization [facility] Address [address] [place] [address] Phone [phone] Care Team Providers Care Marketing Developer Name Role Phone Tabitha Hall MD Primary Care Provider + Reason for Visit * Reason Comments eRx-Medication Refill Encounter Details Date Type Department Care Team (Late st Contact Info) Description 11/03/2024 Refill General Internal Medicine [facility] 200 [facility] [place] [address] Tabitha Hall MD 200 [place] [address] Generalized OA; Recurrent major depressive disorder, in partial remission (HCC) Allergies Active Allergy Reactions Criticality Noted Date Comments Ibuprofen 06/11/2016 Alendronate Sodium 08/13/2016 Celecoxib Nausea/vomiting 12/22/2013 Cheese Flavoring Agent (Non-Screening) 08/27/2013 Monosodium Glutamate 08/13/2016 Penicillin G 06/11/2016 Salicylates Unknown 05/17/2021 Sulfa Antibiotics 06/11/2016 documented as of this encounter (statuses as of 11/04/2024) Medications BD Insulin Syringe 25G X 5/8" 1 ML (Insulin Syringe-Needle U-100)Indications:C ontrolled type 2 diabetes mellitus with hyperglycemia, without long-term current use of insulin (HCC),Type 2 diabetes mellitus with hemoglobin A1c goal of less than 8.0% (HCC) Use to inject B-12 injection once a month. 10 Each 08/23/20 Active FreeStyle French 3 [place] DeviceIndications:D M (diabetes mellitus), type 2, uncontrolled, [...] injections monthly. 12 Each 11/02/19 25 Active Vitamin C 500 MG Oral Tablet (Ascorbic Acid) Take 1 Tablet by mouth in the morning. 30 Tablet 08/18/20 24 025 Discontin ued(Refil l) Calcium Carbonate-Vitamin D 500-5 MG-MCG Oral TabletIndications:A ge-related osteoporosis with current pathological fracture with routine healing, subsequent encounter Take 1 Tablet by mouth in the morning. 30 Tablet 08/18/20 24 025 Discontin ued(Refil l) Cholecalciferol 50 MCG (2000 UT) Oral TabletIndications:A ge-related osteoporosis with current pathological fracture with routine healing, subsequent encounter Take 1 Tablet by mouth in the morning. 1 daily. 30 Tablet 08/18/20 24 025 Discontin ued(Refil l) CoQ10 100 MG Oral Capsule Take 1 Capsule by mouth in the morning. 30 Capsule 08/18/20 24 025 Discontin ued(Refil l) Diclofenac Sodium 1 % External Gel (Voltaren)Indicatio ns:Generalized OA Apply topically to affected area 4 times a day as needed for Other (2 gm to affected joint up to 4 x daily as needed). 350 g 08/18/20 025 Discontin ued(Refil l) Iron Glycinate 29 MG Oral Capsule Take 1 Capsule by mouth once a day on Friday, , and Friday only. 12 Capsule 08/19/20 025 Discontin ued(Refil l) Levothyroxine Sodium 25 MCG Oral Tablet (Levoxyl)Indication s:Acquired hypothyroidism Take by mouth: 2 pills once daily Friday to and take one pill Friday to Friday.(at least 30 min prior to breakfast or other meds) 45 Tablet 08/18/20 025 Discontin ued(Refil l) Magnesium 250 MG Oral Tablet Take 1 Tablet by mouth once a day on Friday, Friday, and Friday only. 12 Tablet 08/18/20 025 Discontin ued(Refil l) Sodium Chloride 1 GM Oral TabletIndications:S IADH (syndrome of inappropriate ADH production) (HCC) Take 1 Tablet by mouth in the morning. 30 Tablet 08/18/20 025 Discontin ued(Refil l) Acetaminophen 325 MG Oral Tablet (Tylenol)Indication s:Generalized OA Take 2 Tablets by mouth 3 times a day. 180 Tablet 08/18/20 025 Discontin ued(Refil l) Vitamin B12 100 MCG Oral Tablet Take 1 Tablet by mouth in the morning. 30 Tablet 08/18/20 025 Discontin ued(Refil l) DULoxetine HCl 30 MG Oral Capsule Delayed Release Particles (Cymbalta)Indicatio ns:Generalized OA,Recurrent major depressive disorder, in partial remission (HCC) TAKE ONE CAPSULE BY MOUTH EVERY MORNING along with duloxetine 60 mg capsule ( total dose 90mg) ,DO NOT CUT, CRUSH, OR CHEW. Takes in evening 30 Capsule 5 10/01/20 24 025 Discontin ued(Refil l) DULoxetine HCl 60 MG Oral Capsule Delayed Release Particles (Cymbalta)Indicatio ns:Generalized OA,Recurrent major depressive disorder, in partial remission (HCC) TAKE ONE CAPSULE BY MOUTH EVERY MORNING along with duloxetine 30 mg capsule ( total dose 90mg) ,DO NOT CUT, CRUSH, OR CHEW. Takes in evening 30 Capsule 5 10/01/20 24 025 Discontin ued(Refil l) Travoprost (RENEA Free) 0.004 % Ophthalmic Solution (Travatan Z)Indications:Glauc charlee of both eyes, unspecified glaucoma type Instill 1 Drop into both eyes at bedtime. 1 daily 2.5 mL 2 10/12/19 25 025 Discontin ued(Refil l) metFORMIN HCl ER 500 MG Oral Tablet Extended Release 24 Hour (Glucophage XR)Indications:Cont rolled type 2 diabetes mellitus with hyperglycemia, without long-term current use of insulin ([facility]) TAKE 1 TABLET BY MOUTH 2 TIMES A DAY WITH MORNING AND EVENING MEALS. 60 Tablet 5 10/13/19 25 025 Discontin ued(Refil l) Trulicity 0.75 MG/0.5ML Subcutaneous Solution Auto-injector (Dulaglutide)Indica tions:Controlled type 2 diabetes mellitus with hyperglycemia, without long-term current use of insulin ([facility]) Inject 0.75 mg under the skin once a week. 2 mL 10/26/19 25 025 Discontin ued(Refil l) documented as of this encounter (statuses as of 11/04/2024) Active Problems Problem Noted Date Diagnosed Date [...] as of this encounter (statuses as of 11/04/2024) Resolved Problems Problem Noted Date Diagnosed Date Resolved Date DM (diabetes mellitus), type 2, uncontrolled, with hyperosmolarity 06/29/2024 07/13/2024 Dislocation closed, finger, subsequent encounter 09/06/2020 07/13/2024 documented as of this encounter (statuses as of 11/04/2024) Immunizations Name Administration Dates Next Due COVID-19 [...] encounter Miscellaneous Notes * Telephone Encounter - Christie Baptiste RPh - 11/04/2024 12:19 PM EST Refused Prescriptions: Disp Refills DULoxetine HCl 60 MG Oral Capsule Delayed *90 Cap*3 Sig: TAKE ONE CAPSULE BY MOUTH EVERY MORNING ALONG WITH 30MG (TOTAL DOSE 90MG) DO NOT CUT, CRUSH, OR CHEWRefused By: CHAI SINGH for Refusal: Duplicate Request documented in this encounter Plan of Treatment Upcoming Encounters Date Type Department Care Team (Late st Contact Info) Description 11/10/2024 10:30 AM EST Office Visit Pharmacy, [facility] [address] [place] [address] Pharmacist1, [facility] [address] [place] [address] 11/10/2024 11:00 AM EST Office Visit General Internal Medicine [facility] [address] [place], [place] [address] Tabitha Hall MD [address] [place], [place] [address] 12/27/2024 2:20 PM EDT Office Visit Neurology [facility] [address] [facility] [place], [place] [address] Alvin Aragon MD 200 [facility] [place], [place] [address] 01/05/2025 9:40 AM EDT Office Visit General Internal Medicine [facility] [address] [place], [place] [address] Tabitha Hall MD 200 [facility] [place], [place] [address] 03/23/2025 9:30 AM EDT Nurse Only Rheumatology [facility]eraj [facility] [place] [address] [place] [phone] Abdirahman, Nurse Rheum Jenn [address] [employer] [place], [place] [address] 10/10/2025 9:40 AM EST Office Visit Rheumatology Ne[facility] [address] [place] [phone] Agustin Erickson MD [address] [employer] [place], [place] [address] Health Maintenance Due Date Last Done Comments [...] D LEVEL ONCE IN A LIFETIME-USE SMARTSET# [id number] Completed 06/28/2024, 06/12/2023, 10/24/2021, Additional history exists [...] as of this encounter Visit Diagnoses Diagnosis Generalized OA Generalized osteoarthrosis, unspecified site Recurrent major depressive disorder, in partial remission (HCC) documented in this encounter Advance Directives Documents on File Type Date Recorded Patient Shoe Lacer Expl anation POLST 06/06/2021 POLST LIANNE REESE ORDERS FOR LIFE-SUSTAINING TREATMENT Care Teams Marketing Developer Relationship Specialty Start Date End Date Tabitha Hall MD 200 [facility] [place] [address] PCP - General Internal Medicine 07/27/20 documented as of this encounter
--- OUTSIDE RECORDS SUMMARY | 2024-11-17 01:03 | External Medical Summary ---
Author Name Unknown Address Unknown Organization [id number]:LABORATORY [facility] [place] - [address] [place] [address] Laboratory Report Ordering Provider Test Date Status KIANA CROSS 11/10/2024 11:47:26 Final Observation Date Value Abnormality Reference (Units ) Status Triglyceride 11/10/2024 11:47:26 350 Above high normal <=174 (mg/dL) Final Triglyceride Reference Range s (mg/dL):
<150 Acceptable
150-174 Borderline high
175-499 High
>=500 Very high Cholesterol 11/10/2024 11:47:26 150 <200 (mg /dL) Final Total Cholesterol Reference Ranges (mg/dL):
<200 Desirable
200-239 Borderline high
>=240 High HDL 11/10/2024 11:47:26 46 Below low normal >49 (mg/dL) Final HDL Cholesterol Reference Ra nges (mg/dL):
>=60 High (Desirable)
<50 Low (Undesirable) For Females
<40 Low (Undesirable) For Males NON-HDL CHOLESTEROL 11/10/2024 11:47:26 104 <=159 (mg/dL) Final Non-HDL Cholesterol Referenc e Range (mg/dL):
<100 Target level for high risk ASCVD patient
<130 Optimal for general population
130-159 Near optimal for general population
160-189 Borderline High
190-219 High
>=220 Very High Performing Location LABORATORY [facility] [place] - [address] [place] [address]
--- OUTSIDE RECORDS SUMMARY | 2024-11-17 01:03 | External Medical Summary | Summary of Care ---
Author Name Unknown Organization [facility] Address [address] [place] [address] Phone [phone] Care Team Providers Care Director Correctional Agency Name Role Phone Tabitha Hall MD Primary Care Provider + Reason for Referral * Medication Prior Authorization - Pending Review Specialty Diagnoses / Procedures Referred By Contac t Referred To Contact Diagnoses Controlled type 2 diabetes mellitus with hyperglycemia, without long-term current use of insulin (HCC) Tabitha Hall MD [address] [place] [address] Phone: tel: fax: Referral ID Status Reason Start Date Expiration Date V isits Requested Visits Authorized [id number] Pending Review 999 999 * Medication Prior Authorization - Pending Review Specialty Diagnoses / Procedures Referred By Contmissy t Referred To Contact Diagnoses Controlled type 2 diabetes mellitus with hyperglycemia, without long-term current use of insulin (HCC) Tabitha Hall MD [address] [place] [address] Phone: tel: fax: Referral ID Status Reason Start Date Expiration Date V isits Requested Visits Authorized [id number] Pending Review 999 999 * Medication Prior Authorization - Pending Review Specialty Diagnoses / Procedures Referred By Michael awad Referred To Contact Diagnoses Age-related osteoporosis with current pathological fracture with routine healing, subsequent encounter Tabitha Hall MD [address] [facility] [place] [address] Phone: tel: fax: Referral ID Status Reason Start Date Expiration Date V isits Requested Visits Authorized [id number] Pending Review 999 999 * Medication Prior Authorization - Pending Review Specialty Diagnoses / Procedures Referred By Michael awad Referred To Contact Diagnoses Controlled type 2 diabetes mellitus with hyperglycemia, without long-term current use of insulin ([facility]) Tabitha Hall MD [address] [facility] [place] [address] Phone: tel: fax: Referral ID Status Reason Start Date Expiration Date V isits Requested Visits Authorized [id number] Pending Review 999 999 Reason for Visit * Reason Onset Date Comments Medication Refill 10/30/2024 Encounter Details Date Type Department Care Team (Late st Contact Info) Description 10/30/2024 Refill General Internal Medicine [facility] [address] [facility] [place] [address] Tabitha Hall MD [address] [facility] [place] [address] Age-related osteoporosis with current pathological fracture with routine healing, subsequent encounter; Generalized OA; Acquired hypothyroidism; SIADH (syndrome of inappropriate ADH production) ([facility]); Controlled type 2 diabetes mellitus with hyperglycemia, without long-term current use of insulin ([facility]); Glaucoma of both eyes, unspecified glaucoma type; Recurrent major depressive disorder, in partial remission ([facility]) Allergies Active Allergy Reactions Criticality Noted Date Comments Ibuprofen 06/11/2016 Alendronate Sodium 08/13/2016 Celecoxib Nausea/vomiting 12/22/2013 Cheese Flavoring Agent (Non-Screening) 08/27/2013 Monosodium Glutamate 08/13/2016 Penicillin G 06/11/2016 Salicylates Unknown 05/17/2021 Sulfa Antibiotics 06/11/2016 documented as of this encounter (statuses as of 11/05/2024) Medications BD Insulin Syringe 25G X 5/8" 1 ML (Insulin Syringe-Needle U-100)Indications:C ontrolled type 2 diabetes mellitus with hyperglycemia, without long-term current use of insulin (HCC),Type 2 diabetes mellitus with hemoglobin A1c goal of less than 8.0% (HCC) Use to inject B-12 injection once a month. 10 Each 08/23/20 Active FreeStyle French 3 Kent DeviceIndications:D M (diabetes mellitus), type 2, uncontrolled, [...] 30 days. 1 mL 08/26/20 24 Active CoQ10 100 MG Oral CapsuleIndications: Controlled [...] use of insulin ([facility]) Take 1 Capsule by mouth [...] use of insulin ([facility]) Take 1 Tablet by mouth in the morning. 30 Tablet 11/04/19 25 Active Vitamin B12 100 MCG Oral Tablet Take 1 Tablet by mouth in the morning. 30 Tablet 11/04/19 25 Active Sodium Chloride 1 GM Oral TabletIndications:S IADH (syndrome of inappropriate ADH production) ([facility]) Take 1 Tablet by mouth [...] CHEW. Takes in evening 90 Capsule 5 11/04/19 25 Active DULoxetine HCl 30 MG Oral Capsule Delayed Release Particles (Cymbalta)Indicatio ns:Generalized OA,Recurrent major depressive disorder, in partial remission (HCC) TAKE ONE CAPSULE BY MOUTH EVERY MORNING along with duloxetine 60 mg capsule ( total dose 90mg) ,DO NOT CUT, CRUSH, OR CHEW. Takes in evening 30 Capsule 11/04/19 25 Active BD SafetyGlide Needle 25G X 1" (Needle (Disp)) Use for vitamin b12 injections monthly. 100 Each 5 01/12/20 24 025 Discontin ued(Refil l) Vitamin C 500 MG Oral Tablet (Ascorbic Acid) Take 1 Tablet by mouth in the morning. 30 Tablet 08/18/20 24 025 Discontin ued(Refil l) Calcium Carbonate-Vitamin D 500-5 MG-MCG Oral TabletIndications:A ge-related osteoporosis with current pathological fracture with routine healing, subsequent encounter Take 1 Tablet by mouth in the morning. 30 Tablet 08/18/20 24 025 Discontin ued(Refil l) Cholecalciferol 50 MCG (1999 UT) Oral TabletIndications:A ge-related osteoporosis with current pathological fracture with routine healing, subsequent encounter Take 1 Tablet by mouth in the morning. 1 daily. 30 Tablet 08/18/20 24 025 Discontin ued(Refil l) CoQ10 100 MG Oral Capsule Take 1 Capsule by mouth in the morning. 30 Capsule 08/18/20 24 025 Discontin ued(Refil l) Diclofenac Sodium 1 % External Gel (Voltaren)Francotio ns:Generalized OA Apply topically to affected area 4 times a day as needed for Other (2 gm to affected joint up to 4 x daily as needed). 350 g 08/18/20 24 025 Discontin ued(Refil l) Iron Glycinate 29 MG Oral Capsule Take 1 Capsule by mouth once a day on Friday, , and Friday only. 12 Capsule 08/19/20 24 025 Discontin ued(Refil l) Levothyroxine Sodium 25 [...] TabletIndications:S IADH (syndrome of inappropriate ADH production) ([facility]) Take 1 Tablet by mouth in the morning. 30 Tablet 08/18/20 24 025 Discontin ued(Refil l) Acetaminophen 325 MG Oral Tablet (Tylenol)Indication s:Generalized OA Take 2 Tablets by mouth 3 times a day. 180 Tablet 08/18/20 24 025 Discontin ued(Refil l) Vitamin B12 100 MCG Oral Tablet Take 1 Tablet by mouth in the morning. 30 Tablet 08/18/20 24 025 Discontin ued(Refil l) Rosuvastatin Calcium 5 MG Oral Tablet (Crestor)Indication s:Hyperlipidemia with target LDL less than 100,Hyperlipidemia, unspecified hyperlipidemia type Take 1 Tablet by mouth once a day on Friday, Friday, and Friday only. 12 Tablet 09/29/20 24 025 Discontin ued(Refil l) DULoxetine HCl 30 [...] of insulin ([facility]) TAKE 1 TABLET BY MOUTH [...] as of this encounter (statuses as of 11/05/2024) Active Problems Problem Noted Date Diagnosed Date [...] as of this encounter (statuses as of 11/05/2024) Resolved Problems Problem Noted Date Diagnosed Date Resolved Date DM (diabetes mellitus), type 2, uncontrolled, with hyperosmolarity 06/29/2024 07/13/2024 Dislocation closed, finger, subsequent encounter 09/06/2020 07/13/2024 documented as of this encounter (statuses as of 11/05/2024) Immunizations Name Administration Dates Next Due COVID-19 [...] encounter Miscellaneous Notes * Telephone Encounter - Amari Morgan CMA - 11/05/2024 10:49 AM EST Statin sent on 11.01.2024 per thien request. * Telephone Encounter - Tabitha Hall MD - 11/04/2024 3:28 PM ESTSigned Prescriptions: Disp Refills CoQ10 100 MG Oral Capsule 30 Cap*0 Sig: Take 1 Capsule by mouth in the morning. Authorizing Provider: TABITHA HALL Cholecalciferol 50 MCG (2000 UT) Oral Tabl*30 Tab*0 Sig: Take 1 Tablet by mouth in the morning. 1 daily. Authorizing Provider: TABITHA HALL Calcium Carbonate-Vitamin D 500-5 MG-MCG O*30 Tab*0 Sig: Take 1 Tablet by mouth in the morning. Authorizing Provider: TABITHA HALL Acetaminophen 325 MG Oral Tablet (Tylenol) 180 Ta*0 Sig: Take 2 Tablets by mouth 3 times a day. Authorizing Provider: TABITHA HALL Diclofenac Sodium 1 % External Gel (Voltar*350 g 0 Sig: Apply topically to affected area 3 times a day. Apply 2 gm to right shoulder 3x daily and 4 gm to l ow back 3x daily Authorizing Provider: TABITHA HALL Iron Glycinate 29 MG Oral Capsule 12 Cap*0 Sig: Take 1 Capsule by mouth once a day on Friday, , and Friday only. Authorizing Provider: TABITHA HALL Levothyroxine Sodium 25 MCG Oral Tablet (L*90 Tab*5 Sig: Take by mouth: 2 pills once daily Friday to and take one pill to Friday.(at least 30 min prior to breakfast or other meds) Authorizing Provider: TABITHA HALL Magnesium 250 MG Oral Tablet 12 Tab*0 Sig: Take 1 Tablet by mouth once a day on Friday, Friday, and Friday only. Authorizing Provider: TABITHA HALL Vitamin C 500 MG Oral Tablet (Ascorbic Aci*30 Tab*0 Sig: Take 1 Tablet by mouth in the morning. A uthorizing Provider: TABITHA HALL Vitamin B12 100 MCG Oral Tablet 30 Tab*0 Sig: Take 1 Tablet by mouth in the morning. Authorizing Provider: TABITHA HALL Sodium Chloride 1 GM Oral Tablet 90 Tab*3 Sig: Take 1 Tablet by mouth in the morning. Authorizing Provider: TABITHA HALL Trulicity 0.75 MG/0.5ML Subcutaneous Solut*2 mL 5 Sig: Inject 0.75 mg under the skin once a week. Authorizing Provider: TABITHA HALL Travoprost (RENEA Free) 0.004 % Ophthalmic S*2.5 mL 2 Sig: Instill 1 Drop into both eyes at bedtime. 1 daily Authorizing Provider: TABITHA HALL metFORMIN HCl ER 500 MG Oral Tablet Extend*180 Ta*5 Sig: Take 1 Tablet by mouth 2 times a day with morning and evening meals. Authorizing Provider: TABITHA HALL DULoxetine HCl 60 MG Oral Capsule Delayed *90 Cap*5 Sig: TAKE ONE CAPSULE BY MOUTH EVERY MORNING along with duloxetine 30 mg capsule ( total dose 90mg) ,DO NOT CUT, CRUSH, OR CHEW. Takes in evening Authorizing Provider: TABITHA HALL DULoxetine HCl 30 MG Oral Capsule Delayed *30 Cap*5 Sig: TAKE ONE CAPSULE BY MOUTH EVERY MORNING along with duloxetine 60 mg c apsule ( total dose 90mg) ,DO NOT CUT, CRUSH, OR CHEW. Takes in evening Authorizing Provider: TABITHA HALL * Telephone Encounter - Tabitha Hall MD - 11/04/2024 3:27 PM EST Please check if she is taking statin or not. Rest sent. * Telephone Encounter - Ming Durán LPN - 11/04/2024 12:11 PM EST Kathy patients care assistant calling in today. Kathy states patient has been in [facility] assisted living since 09/01 and they need all her meds scripts sent to [facility]. All med's reviewed with Kathy and pended that need refilled. [address] Meds Pended * Telephone Encounter - Jia Peres OSA - 11/04/2024 12:00 PM EST Transferred to DN * Telephone Encounter - Tabitha Hall MD - 11/04/2024 10:20 AM EST Can you please confirm and pend the orders whichever she needs and send back to me? Thanks. * Telephone Encounter - Maurice Barger RN - 11/01/2024 5:40 PM EST Please see Penelope's previous message and advise. * Telephone Encounter - Penelope Ching CPhT - 11/01/2024 11:19 AM EST Thien Varghese calling to request a refill on the following medication: acetaminophen 325mg, Calcium Carbonate-Vitamin D 500-5 MG-MCG Oral Tablet Cholecalciferol 50 MCG (2000 UT) Oral Tablet CoQ10 100 MG Oral Capsule Diclofenac Sodium 1 % External Gel (Voltaren) Iron Glycinate 29 MG Oral Capsule Levothyroxine Sodium 25 MCG Oral Tablet (Levoxyl) Magnesium 250 MG Oral Tablet Sodium Chloride 1 GM Oral Tablet Vitamin B12 100 MCG Oral Tablet Vitamin C 500 MG Oral Tablet (Ascorbic Acid) Medication was last prescribed by [facility], but patient is asking if PCP can take over the medication. Please advise if this is appropriate and send to [address] if agreeable. Thank you, Penelope Ching CPhT II Project Designer [facility] 11/01/2024, 11:19 AM * Telephone Encounter - Canelo Baig silk screen painter - 10/30/2024 2:13 PM EST Thien Varghese called requesting a call back from PCP Office. PCP was supposed to be working on scripts for pt to be sent to [facility]. Please call them back at [phone]. Thien varghese stated they spoke with about this on 10/26/2024. Thank You, Canelo Baig [facility] Account Services Analyst II [facility] 10/30/2024, 2:15 PM documented in this encounter Plan of Treatment Upcoming Encounters Date Type Department Care Team (Late st Contact Info) Description 11/10/2024 10:30 AM EST Office Visit Pharmacy, [facility] [place] [address] [place] [address] Pharmacist1, [facility] [address] [place] [address] 11/10/2024 11:00 AM EST Office Visit General Internal Medicine [facility] [place] [address] [place] [address] Tabitha Hall MD [address] [place] [address] 12/27/2024 2:20 PM EDT Office Visit Neurology [facility] [place] [address] [place] [address] Alvin Aragon MD [address] [place] [address] 01/05/2025 9:40 AM EDT Office Visit General Internal Medicine [facility] [place] [address] [place] [address] Tabitha Hall MD [address] [place], [place] [address] 03/23/2025 9:30 AM EDT Nurse [facility] [address] [place] [phone] Nurse Arlene Gary [address] [place] [address] 10/10/2025 9:40 AM EST [facility] [address] [place] [phone] Agustin Erickson MD [address] [place] [address] Health Maintenance Due Date Last Done Comments [...] D LEVEL ONCE IN A LIFETIME-USE SMARTSET# [id number] Completed 06/28/2024, 06/12/2023, 10/24/2021, Additional history exists [...] encounter Generalized OA Generalized osteoarthrosis, unspecified site Acquired hypothyroidism Unspecified hypothyroidism SIADH (syndrome of inappropriate ADH production) (HCC) Other disorders of neurohypophysis Controlled type 2 diabetes mellitus with hyperglycemia, without long-term current use of insulin (HCC) Glaucoma of both eyes, unspecified glaucoma type Recurrent major depressive disorder, in partial remission (HCC) documented in this encounter Advance Directives Documents on File Type Date Recorded 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
--- OUTSIDE RECORDS SUMMARY | 2024-11-17 01:03 | External Medical Summary ---
Author Name Unknown Address Unknown Organization [id number]:LABORATORY [facility] [place] - [address] [place] [address] Laboratory Report Ordering Provider Test Date Status LLOYD PERKINS 11/10/2024 11:47:26 Final Observation Date Value Abnormality Reference (Units ) Status TSH 11/10/2024 11:47:26 2.78 0.27-4.20 (uIU/mL) Final Performing Location [facility] - [address] [place] [address]
--- OUTSIDE RECORDS SUMMARY | 2024-11-17 01:03 | External Medical Summary | Summary of Care ---
Author Name Unknown Organization [facility] Address [address] [facility] [address] Phone [phone] Care Team Providers Care Director Of Medicare Name Role Phone Tabitha Hall MD Primary Care Provider + Encounter Details Date Type Department Care Team (Late st Contact Info) Description 10/28/2024 Orders Only PATIENT PORTAL DO NOT DELETE THIS DEPT USED BY [place] [id number] Allergies Active Allergy Reactions Criticality Noted Date Comments Ibuprofen 06/11/2016 Alendronate Sodium 08/13/2016 Celecoxib Nausea/vomiting 12/22/2013 Cheese Flavoring Agent (Non-Screening) 08/27/2013 Monosodium Glutamate 08/13/2016 Penicillin G 06/11/2016 Salicylates Unknown 05/17/2021 Sulfa Antibiotics 06/11/2016 documented as of this encounter (statuses as of 10/28/2024) Medications BD Insulin Syringe 25G X 5/8" 1 ML (Insulin Syringe-Needle U-100)Indications:C ontrolled type 2 diabetes mellitus with hyperglycemia, without long-term current use of insulin (HCC),Type 2 diabetes mellitus with hemoglobin A1c goal of less than 8.0% ([facility]) Use to inject B-12 injection once a month. 10 Each 1 08/23/20 22 Active BD SafetyGlide Needle 25G X 1" (Needle (Disp)) Use for vitamin b12 injections monthly. 100 Each 5 01/12/20 24 Active FreeStyle French 3 [place]ount DeviceIndications:D M (diabetes mellitus), type 2, uncontrolled, with hyperosmolarity (HCC) Use as directed. 1 Each 03/29/20 24 Active FreeStyle French 3 Plus SensorIndications:D M (diabetes mellitus), type 2, uncontrolled, with hyperosmolarity (HCC) Change sensor every 15 days. 2 Each 11 07/29/20 24 Active Vitamin C 500 MG Oral Tablet (Ascorbic Acid) Take 1 Tablet by mouth in the morning. 30 Tablet 08/18/20 24 Active Calcium Carbonate-Vitamin D 500-5 MG-MCG Oral [...] x daily as needed). 350 g 08/18/20 Active Additional Information Patient taking differently:TopicalTID(AM/NOON/HS), Apply 2 gm to right shoulder 3x daily and 4 gm to low back 3x daily, Reported on 08/26/2024 Iron Glycinate 29 MG Oral Capsule Take 1 Capsule by mouth once a day on Friday, , and Friday only. 12 Capsule 08/19/20 24 Active Levothyroxine Sodium 25 MCG Oral Tablet [...] muscle every 30 days. 1 mL 11 08/26/20 24 Active Rosuvastatin Calcium 5 MG [...] as of this encounter (statuses as of 10/28/2024) Active Problems Problem Noted Date Diagnosed Date [...] as of this encounter (statuses as of 10/28/2024) Resolved Problems Problem Noted Date Diagnosed Date Resolved Date DM (diabetes mellitus), type 2, uncontrolled, with hyperosmolarity 06/29/2024 07/13/2024 Dislocation closed, finger, subsequent encounter 09/06/2020 07/13/2024 documented as of this encounter (statuses as of 10/28/2024) Immunizations Name Administration Dates Next Due COVID-19 [...] PM EST documented as of this encounter Plan of Treatment Upcoming Encounters Date Type Department Care Team (Late st Contact Info) Description 11/10/2024 10:30 AM EST Office Visit Pharmacy, [facility] [place] [address] [place] [address] Pharmacist1, [facility] [address] [facility] [place] [address] 11/10/2024 11:00 AM EST Office Visit General Internal Medicine [facility] [place] [address] [place] [address] Tabitha Hall MD [address] [place] [address] 12/27/2024 2:20 PM EDT Office Visit Neurology [facility] [place] [address] [place] [address] Alvin Aragon MD [address] [place] [address] 01/05/2025 9:40 AM EDT Office Visit General Internal Medicine [facility] [address] [place] [address] Tabitha Hall MD [address] [place] [address] 03/23/2025 9:30 AM EDT Nurse Only Rheumatology [facility] [address] [place] [phone] Pf, Nurse Rheum [facility] [place] [address] 10/10/2025 9:40 AM EST [facility] [address] [place] [phone] Agustin Erickson MD [address] [facility] [place] [address] Health Maintenance Due Date Last Done Comments [...] D LEVEL ONCE IN A LIFETIME-USE SMARTSET# [id number] Completed 06/28/2024, 06/12/2023, 10/24/2021, Additional history exists [...] Documents on File Type Date Recorded 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
--- OUTSIDE RECORDS SUMMARY | 2024-11-17 01:03 | External Medical Summary ---
Author Name Unknown Address Unknown Organization K09:[facility] [place] [address] Laboratory Report Ordering Provider Test Date Status LLOYD PERKINS 11/10/2024 11:47:26 Final Observation Date Value Abnormality Reference (Units ) Status WBC, Total 11/10/2024 11:47:26 11.28 Above high normal 4 .00-10.80 (K/uL) Final RBC 11/10/2024 11:47:26 4.16 3.85-5.15 (M/uL) Final Hemoglobin 11/10/2024 11:47:26 11.8 Below low normal 12 .0-15.3 (g/dL) Final HCT 11/10/2024 11:47:26 35.8 Below low normal 36. 0-45.2 (%) Final MCV 11/10/2024 11:47:26 86.1 81.5-97.5 (fL) Final MCH 11/10/2024 11:47:26 28.4 27.0-34.0 (pg) Final MCHC 11/10/2024 11:47:26 33.0 32.0-36.0 (g/dL) Final RDW 11/10/2024 11:47:26 13.5 11.5-15.5 (%) Final Platelets 11/10/2024 11:47:26 372 140-400 (K /uL) Final MPV 11/10/2024 11:47:26 8.9 6.6-11.1 ( fL) Final Performing Location [facility] [place] [address]
--- OUTSIDE RECORDS SUMMARY | 2024-11-17 01:03 | External Medical Summary ---
Author Name Unknown Address Unknown Organization K01:[facility]ATORY [facility] - [address] [place] [address] Laboratory Report Ordering Provider Test Date Status KIANA CROSS 11/10/2024 11:47:26 Final Observation Date Value Abnormality Reference (Units ) Status LDL, (direct) 11/10/2024 11:47:26 60 <=129 (mg/dL) Final LDL Cholesterol Reference Ra nges (mg/dL):
<70 Target level for high risk ASCVD patient
<100 Optimal for general population
100-129 Near optimal for general population
130-159 Borderline high
160-189 High
>=190 Very high Performing Location [facility] - [address] [place] [address]
--- OUTSIDE RECORDS SUMMARY | 2024-11-17 01:03 | External Medical Summary ---
Author Name Unknown Address Unknown Organization K01:LABORATORY [facility] [place] - [address] [facility] [address] [facility] [address] Laboratory Report Ordering Provider Test Date Status LLOYD PERKINS 11/10/2024 11:47:26 Final Observation Date Value Abnormality Reference (Units ) Status Ferritin 11/10/2024 11:47:26 58 13-150 (ng /mL) Final Postmenopausal women have hi gher ferritin levels than pre-menopausal women. The above reference interval is based on pre-menopausal women. Performing Location [facility] - [address] [place] [address]
--- OUTSIDE RECORDS SUMMARY | 2024-11-17 01:03 | External Medical Summary | Summary of Care ---
Author Name Unknown Organization [facility] Address [address] [place] [address] Phone [phone] Care Team Providers Care County Auditor Name Role Phone Tabitha Hall MD Primary Care Provider + Reason for Visit * Reason Comments Diabetes Follow-Up Dosage Adjustment In Person (Anticoag Cl inic) Encounter Details Date Type Department Care Team (Late st Contact Info) Description 11/10/2024 10:30 AM EST Office Visit Pharmacy, [facility] 200 [place] [address] Pharmacist1, [facility] 200 [facility] [place] [address] Controlled type 2 diabetes mellitus with hyperglycemia, without long-term current use of insulin ([facility])* Allergies Active Allergy Reactions Criticality [...] 10 Each 08/23/20 Active FreeStyle French 3 Dante DeviceIndications:D M (diabetes mellitus), type 2, uncontrolled, [...] use of insulin ([facility]) Take 1 Capsule by mouth once [...] use of insulin ([facility]) Take 1 Tablet by mouth in the morning. 30 Tablet 11/04/19 25 Active Vitamin B12 100 MCG Oral Tablet Take 1 Tablet by mouth in the morning. 30 Tablet 11/04/19 25 Active Sodium Chloride 1 GM Oral TabletIndications:S IADH (syndrome of inappropriate ADH production) ([facility]) Take 1 Tablet by mouth in the morning. 90 Tablet 3 11/04/19 25 Active Trulicity 0.75 MG/0.5ML Subcutaneous Solution Auto-injector (Dulaglutide)Indica tions:Controlled type 2 diabetes mellitus with hyperglycemia, without long-term current use of insulin ([facility]) Inject 0.75 mg under the [...] this encounter Progress Notes * Yunior Phillips, [facility] - 11/10/2024 10:33 AM EST [...] Lifestyle: Diet: she is eating more at [facility] Lifestyle: None Therapy considerations: None Medication: [...] Yunior Sanchez RPh, CORTESE Clinical Pharmacist - Network Support Technician Medication [facility] 11/10/2024, 10:33 AM documented in this encounter Plan of Treatment Upcoming Encounters Date Type Department Care Team (Late st Contact Info) Description 11/19/2024 10:30 AM EST Imaging Radiology [address] [place] [address] 11/19/2024 11:30 AM EST Imaging Vascular Lab, [address] [place] [address] 12/27/2024 2:20 PM EDT Office Visit Neurology [facility] [place] 200 [facility] [place] [address] Alvin Aragon MD [address] [place] [address] 01/05/2025 9:10 AM EDT Office Visit Pharmacy, [facility] [address] [place], [place] [address] Pharmacist1, [facility] 200 [facility] [place], [place] [address] 01/05/2025 9:40 AM EDT Office Visit General Internal Medicine [facility] 200 [facility] [place] [address] Tabitha Hall MD 200 [facility] [place] [address] 03/23/2025 9:30 AM EDT Nurse Only Rheumatology [facility] [address] [place] [phone] Abdirahman Nurse [facility] [place], [place] [address] 05/17/2025 3:00 PM EDT Office Visit General Internal Medicine [facility] 200 [facility] [place] [address] Tabitha Hall MD 200 [facility] [place], [place] [address] 10/10/2025 9:40 AM EST Office Visit Rheumatology [facility] [address] [place] [phone] Agustin Erickson MD [address] [email or web address] [place], [place] [address] Health Maintenance Due Date Last Done Comments Adult Wellness Visit 02/03/2004 Depression Monitoring 01/15/2024 01/14/2023 COVID-19 Vaccine ( season) 2024 06/25/2024, 07/22/2023, 02/21/2023, Additional history exists Albumin/Creatinine Ratio 03/05/2025 024, 01/14/2023, 04/15/2022, Additional history exists Diabetic Eye Exam 04/14/2025 04/14/2024, , 01/25/2021, Additional history exists TSH 05/04/2025 05/04/2024, 02/05, 06/12/2023, Additional history exists HbA1c 05/10/2025 11/10/2024, 06/07, [...] D LEVEL ONCE IN A LIFETIME-USE SMARTSET# [id number] Completed 06/28/2024, 06/12/2023, 10/24/2021, Additional history exists [...] 5.6 % 11/10/2024 2:47 PM EST [facility] [place] [facility] Blood 11/10/2024 10:3 7 AM EST 11/10/2024 2:47 PM EST [facility] Pharmacist1 LAB POINT OF C ARE TEST DOCKED DEVICE UNSOLICITED RESULTS Final Result [facility] [place] [facility] [address] documented in this encounter Visit Diagnoses Diagnosis Controlled type 2 diabetes mellitus with hyperglycemia, without long-term current use of insulin (HCC)- Primary documented in this encounter Advance Directives Documents on File Type Date Recorded Patient Word Processing Operator Expl anation POLST 06/06/2021 POLST LIANNE REESE ORDERS FOR LIFE-SUSTAINING TREATMENT Care Teams County Auditor Relationship Specialty Start Date End Date Tabitha Hall MD [facility] [address] PCP - General Internal Medicine 07/27/20 documented as of this encounter
--- OUTSIDE RECORDS SUMMARY | 2024-11-17 01:03 | External Medical Summary | Summary of Care ---
Author Name Unknown Organization [facility] Address [address] [place] [address] Phone [phone] Care Team Providers Care Transverse Abdominal Muscle Nurse Name Role Phone Tabitha Hall MD Primary Care Provider + Reason for Visit * Reason Comments eRx-Medication Refill Encounter Details Date Type Department Care Team (Late st Contact Info) Description 11/06/2024 Refill General Internal Medicine [facility] 200 [facility] [place] [address] Tabitha Hall MD 200 [place] [address] Generalized OA; Recurrent major depressive disorder, in partial remission (HCC) Allergies Active Allergy Reactions Criticality Noted Date Comments Ibuprofen 06/11/2016 Alendronate Sodium 08/13/2016 Celecoxib Nausea/vomiting 12/22/2013 Cheese Flavoring Agent (Non-Screening) 08/27/2013 Monosodium Glutamate 08/13/2016 Penicillin G 06/11/2016 Salicylates Unknown 05/17/2021 Sulfa Antibiotics 06/11/2016 documented as of this encounter (statuses as of 11/07/2024) Medications BD Insulin Syringe 25G X 5/8" 1 ML (Insulin Syringe-Needle U-100)Indications:C ontrolled type 2 diabetes mellitus with hyperglycemia, without long-term current use of insulin (HCC),Type 2 diabetes mellitus with hemoglobin A1c goal of less than 8.0% (HCC) Use to inject B-12 injection once a month. 10 Each 08/23/20 Active FreeStyle French 3 [place] DeviceIndications:D M (diabetes mellitus), type 2, uncontrolled, [...] current use of insulin ([facility]) Take 1 Capsule by mouth in the morning. 30 Capsule 11/04/19 25 Active Cholecalciferol 50 MCG (2000 UT) Oral [...] current use of insulin ([facility]) Take 1 Capsule by mouth once [...] current use of insulin ([facility]) Take 1 Tablet by mouth in the morning. 30 Tablet 11/04/19 25 Active Vitamin B12 100 MCG Oral Tablet Take 1 Tablet by mouth in the morning. 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) Take 1 Tablet by mouth in the morning. 90 Tablet 3 11/04/19 25 Active Trulicity 0.75 MG/0.5ML Subcutaneous Solution Auto-injector (Dulaglutide)Indica tions:Controlled type 2 diabetes mellitus with hyperglycemia, without long-term current use of insulin ([facility]) Inject 0.75 mg under the skin [...] as of this encounter (statuses as of 11/07/2024) Active Problems Problem Noted Date Diagnosed Date [...] as of this encounter (statuses as of 11/07/2024) Resolved Problems Problem Noted Date Diagnosed Date Resolved Date DM (diabetes mellitus), type 2, uncontrolled, with hyperosmolarity 06/29/2024 07/13/2024 Dislocation closed, finger, subsequent encounter 09/06/2020 07/13/2024 documented as of this encounter (statuses as of 11/07/2024) Immunizations Name Administration Dates Next Due COVID-19 [...] encounter Miscellaneous Notes * Telephone Encounter - Richard Yee RPh - 11/07/2024 11:48 AM EST Refused Prescriptions: Disp Refills DULoxetine HCl 60 MG Oral Capsule Delayed *90 Cap*3 Sig: TAKE ONE CAPSULE BY MOUTH EVERY MORNING ALONG WITH 30MG (TOTAL DOSE 90MG) DO NOT CUT, CRUSH, OR CHEWRefused By: RICHARD YEE for Refusal: Duplicate Request documented in this encounter Plan of Treatment Upcoming Encounters Date Type Department Care Team (Late st Contact Info) Description 11/10/2024 10:30 AM EST Office Visit Pharmacy, [facility] [place] [address] [place] [address] Pharmacist1, [facility] [address] [place] [address] 11/10/2024 11:00 AM EST Office Visit General Internal Medicine [employer] [address] [place] [address] Tabitha Hall MD [address] [place] [address] [place] [address] 12/27/2024 2:20 PM EDT Office Visit [facility] [place] [address] [place] [address] Alvin Aragon MD [address] [place] [address] 01/05/2025 9:40 AM EDT Office Visit General Internal Medicine [facility] [place] [address] [place] [address] Tabitha Hall MD 200 [facility] [place] [address] 03/23/2025 9:30 AM EDT Nurse Only Rheumatology [facility] [place], [place] [address] [place] [phone] Abdirahman Nurse Arlene Barajas [address] [employer] [place] [address] 10/10/2025 9:40 AM EST Office Visit Rheumatology [facility] [place] [address] [place] [phone] Agustin Erickson MD [address] [place], [place] [address] Health Maintenance Due Date Last Done Comments [...] D LEVEL ONCE IN A LIFETIME-USE SMARTSET# [id number] Completed 06/28/2024, 06/12/2023, 10/24/2021, Additional history exists [...] Documents on File Type Date Recorded Patient Licensed Occupational Therapy Assistant Expl anation POLST 06/06/2021 POLST LIANNE REESE ORDERS FOR LIFE-SUSTAINING TREATMENT Care Teams Transverse Abdominal Muscle Nurse Relationship Specialty Start Date End Date Tabitha Hall MD 200 [facility] [place] [address] PCP - General Internal Medicine 07/27/20 documented as of this encounter
--- OUTSIDE RECORDS SUMMARY | 2024-11-17 01:03 | External Medical Summary ---
Author Name Unknown Address Unknown Organization K09:[facility] [place] [address] Laboratory Report Ordering Provider Test Date Status LLOYD PERKINS 11/10/2024 11:47:26 Final Observation Date Value Abnormality Reference (Units ) Status SYNC LEUKOCYTES IN BLOOD BY AUTOMATED COUNT 11/10/2024 11:47:26 11.28 Above high normal 4.00-10.80 (K/uL) Final Segs 11/10/2024 11:47:26 68.8 40.0-75.0 (%) Final Lymphs % 11/10/2024 11:47:26 19.9 18.0-42.0 (%) Final Monos 11/10/2024 11:47:26 8.2 1.0-11.0 (%) Final Eosinophils 11/10/2024 11:47:26 2.3 0.0-6.0 (%) Final Basos 11/10/2024 11:47:26 0.8 0.0-2.0 (%) Final Absolute Segs 11/10/2024 11:47:26 7.76 Above high normal 1.80-7.70 (K/uL) Final Lymphs, absolute 11/10/2024 11:47:26 2.25 1.00-4.80 (K/ul) Final Monos, Abs 11/10/2024 11:47:26 0.92 0.00-1.10 (K/uL) Final Eos, Abs 11/10/2024 11:47:26 0.26 0.00-0.70 (K/uL) Final Basos, Abs 11/10/2024 11:47:26 0.09 0.00-0.20 (K/uL) Final Performing Location [facility] [place] [address]
--- OUTSIDE RECORDS SUMMARY | 2024-11-17 01:03 | External Medical Summary ---
Author Name Unknown Address Unknown Organization K09:[facility] [place] [address] Laboratory Report Ordering Provider Test Date Status [email or web address],[email or web address] 11/10/2024 10:37:46 Final Observation Date Value Abnormality Reference (Units ) Status HbA1C 11/10/2024 10:37:46 7.9 Above high normal 4. 0-5.6 (%) Final Performing Location [facility] [place] [address]
--- OUTSIDE RECORDS SUMMARY | 2024-11-17 01:04 | External Medical Summary | Summary of Care ---
Author Name Unknown Organization [facility] Address [address] [place] [address] Phone [phone] Care Team Providers Care Rodding Anode Worker Name Role Phone Tabitha Hall MD Primary Care Provider + Reason for Visit * Reason Onset Date Comments Medication Refill 10/08/2024 Encounter Details Date Type Department Care Team (Late st Contact Info) Description 10/08/2024 Telephone Family Medicine [address] [phone] Wilda Jean-Bapitste MD [address] [place] [address] [place] [address] Medication Refill Allergies Active Allergy Reactions Criticality Noted Date Comments Ibuprofen 06/11/2016 Alendronate Sodium 08/13/2016 Celecoxib Nausea/vomiting 12/22/2013 Cheese Flavoring Agent (Non-Screening) 08/27/2013 Monosodium Glutamate 08/13/2016 Penicillin G 06/11/2016 Salicylates Unknown 05/17/2021 Sulfa Antibiotics 06/11/2016 documented as of this encounter (statuses as of 10/11/2024) Medications BD Insulin Syringe 25G X 5/8" [...] 5 01/12/20 24 Active FreeStyle French 3 [place] DeviceIndications:D M (diabetes mellitus), type 2, uncontrolled, [...] the morning. 30 Tablet 08/18/20 24 Active Travoprost (RENEA Free) 0.004 % Ophthalmic Solution (Travatan Z)Indications:Glauc charlee of both eyes, unspecified glaucoma type Instill 1 Drop into both eyes at bedtime. 1 daily 2.5 mL 08/18/20 Active Acetaminophen 325 MG Oral Tablet (Tylenol)Indication [...] 30 days. 1 mL 08/26/20 24 Active Trulicity 0.75 MG/0.5ML Subcutaneous Solution Auto-injector (Dulaglutide)Indica tions:Controlled type 2 diabetes mellitus with hyperglycemia, without long-term current use of insulin ([facility]) Inject 0.75 mg under the skin once a week. 2 mL 09/27/20 24 Active Rosuvastatin Calcium 5 MG Oral Tablet (Crestor)Indication s:Hyperlipidemia with target LDL less than 100,Hyperlipidemia, unspecified hyperlipidemia type Take 1 Tablet by mouth once a day on Friday, Friday, and Friday only. 12 Tablet 09/29/20 24 Active metFORMIN HCl ER 500 MG Oral Tablet Extended Release 24 Hour (Glucophage XR)Indications:Cont rolled type 2 diabetes mellitus with hyperglycemia, without long-term current use of insulin ([facility]) Take 1 Tablet by mouth 2 times a day with morning and evening meals. 60 Tablet 09/28/20 Active DULoxetine HCl 30 MG Oral Capsule [...] evening 30 Capsule 5 10/01/20 24 Active documented as of this encounter (statuses as of 10/11/2024) Active Problems Problem Noted Date Diagnosed Date [...] as of this encounter (statuses as of 10/11/2024) Resolved Problems Problem Noted Date Diagnosed Date Resolved Date DM (diabetes mellitus), type 2, uncontrolled, with hyperosmolarity 06/29/2024 07/13/2024 Dislocation closed, finger, subsequent encounter 09/06/2020 07/13/2024 documented as of this encounter (statuses as of 10/11/2024) Immunizations Name Administration Dates Next Due COVID-19 [...] encounter Miscellaneous Notes * Telephone Encounter - Ashlee Naranjo PHARM Tech - 10/08/2024 4:20 PM EST Jackie Luis calling to request a refill on Travoprost (RENEA Free) 0.004 % Ophthalmic Solution (Travatan Z). Medication was last prescribed by Carrie Grimes PA-C but patient is asking if PCP can take over the medication. Please advise if this is appropriate and send to [address] [place] if agreeable. Thank you, Ashlee Naranjo CPhT Senior Quality Analyst Ice Cream Chef [facility] 10/08/2024,4:20 PM documented in this encounter Plan of Treatment Upcoming Encounters Date Type Department Care Team (Late st Contact Info) Description 11/10/2024 10:30 AM EST Office Visit Pharmacy, [facility] [place] [address] [place] [address] Pharmacist1, [facility] [address] [place] [address] 11/10/2024 11:00 AM EST Office Visit General Internal Medicine [facility] [place] [address] [place] [address] Tabitha Hall MD [address] [place] [address] 12/27/2024 2:20 PM EDT Office Visit Neurology [facility] [place] [address] [place] [address] Alvin Aragon MD [address] [place] [address] 01/05/2025 9:40 AM EDT Office Visit General Internal Medicine [facility] 200 [facility] [place] [address] Tabitha Hall MD 200 [facility] [place] [address] 03/23/2025 9:30 AM EDT Nurse Only Rheumatology [address] [place], [place] [address] Pf, Nurse Rheum [address] [place] [address] [place] [address] 10/10/2025 9:40 AM EST Office Visit Rheumatology [address] [place], [place] [address] Agustin Erickson MD [address] [place] [address] [place], [place] [address] Health Maintenance Due Date Last Done Comments [...] D LEVEL ONCE IN A LIFETIME-USE SMARTSET# [id number] Completed 06/28/2024, 06/12/2023, 10/24/2021, Additional history exists [...] as of this encounter Visit Diagnoses Diagnosis Glaucoma of both eyes, unspecified glaucoma type documented in this encounter Advance Directives Documents on File Type Date Recorded 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
--- OUTSIDE RECORDS SUMMARY | 2024-11-17 01:04 | External Medical Summary | Summary of Care ---
Author Name Unknown Organization [facility] Address [address] [place] [address] Phone [phone] Care Team Providers Care Hammerer Tab Name Role Phone Tabitha Hall MD Primary Care Provider + Reason for Visit * Reason Comments eRx-Medication Refill Encounter Details Date Type Department Care Team (Late st Contact Info) Description 09/28/2024 Refill General Internal Medicine [facility] [address] [place] [address] Deisy Venegas MD 200 [place] [address] Controlled type 2 diabetes mellitus with hyperglycemia, without long-term current use of insulin ([facility]) Allergies Active Allergy Reactions Criticality Noted Date Comments Ibuprofen 06/11/2016 Alendronate Sodium 08/13/2016 Celecoxib Nausea/vomiting 12/22/2013 Cheese Flavoring Agent (Non-Screening) 08/27/2013 Monosodium Glutamate 08/13/2016 Penicillin G 06/11/2016 Salicylates Unknown 05/17/2021 Sulfa Antibiotics 06/11/2016 documented as of this encounter (statuses as of 10/01/2024) Medications BD Insulin Syringe 25G X 5/8" [...] 5 01/12/20 24 Active FreeStyle French 3 [place] DeviceIndications:D M (diabetes mellitus), type 2, uncontrolled, [...] Tablet 08/18/20 24 Active Cholecalciferol 50 MCG (1999 UT) Oral [...] low back 3x daily, Reported on 08/26/2024 DULoxetine HCl 60 MG Oral Capsule Delayed Release Particles (Cymbalta)Francotio ns:Generalized OA,Recurrent major depressive disorder, in partial remission (HCC) TAKE ONE CAPSULE BY MOUTH EVERY MORNING along with duloxetine 30 mg capsule ( total dose 90mg) ,DO NOT CUT, CRUSH, OR CHEW. Takes in evening 30 Capsule 08/18/20 24 Active DULoxetine HCl 30 MG Oral Capsule Delayed Release Particles (Cymbalta)Indicatio ns:Generalized OA,Recurrent major depressive disorder, in partial remission (HCC) TAKE ONE CAPSULE BY MOUTH EVERY MORNING along with duloxetine 60 mg capsule ( total dose 90mg) ,DO NOT CUT, CRUSH, OR CHEW. Takes in evening 30 Capsule 08/18/20 24 Active Iron Glycinate 29 MG Oral Capsule [...] TabletIndications:S IADH (syndrome of inappropriate ADH production) ([facility]) Take 1 Tablet by mouth in the morning. 30 Tablet 08/18/20 24 Active Travoprost (RENEA Free) 0.004 % Ophthalmic Solution (Travatan Z)Indications:Glauc charlee of both eyes, unspecified glaucoma type Instill 1 Drop into both eyes at bedtime. 1 daily 2.5 mL 08/18/20 24 Active Acetaminophen 325 MG Oral [...] Friday, and Friday only. 12 Tablet 09/29/20 Active metFORMIN HCl ER 500 MG Oral Tablet Extended Release 24 Hour (Glucophage XR)Indications:Cont rolled type 2 diabetes mellitus with hyperglycemia, without long-term current use of insulin (HCC) Take 1 Tablet by mouth 2 times a day with morning and evening meals. 60 Tablet 09/28/20 Active documented as of this encounter (statuses as of 10/01/2024) Active Problems Problem Noted Date Diagnosed Date [...] as of this encounter (statuses as of 10/01/2024) Resolved Problems Problem Noted Date Diagnosed Date Resolved Date DM (diabetes mellitus), type 2, uncontrolled, with hyperosmolarity 06/29/2024 07/13/2024 Dislocation closed, finger, subsequent encounter 09/06/2020 07/13/2024 documented as of this encounter (statuses as of 10/01/2024) Immunizations Name Administration Dates Next Due COVID-19 [...] encounter Miscellaneous Notes * Telephone Encounter - Kasia Gasca RPh - 10/01/2024 6:38 AM EST Refused Prescriptions: Disp Refills Trulicity 0.75 MG/0.5ML Subcutaneous Solut*2 mL 11 Sig: INJECT 0.75MG UNDER THE SKIN ONCE A WEEK.Refused By: KASIA GASCA for Refusal: Duplicate Reque st documented in this encounter Plan of Treatment Upcoming Encounters Date Type Department Care Team (Late st Contact Info) Description 11/10/2024 10:30 AM EST Office Visit Pharmacy, [facility] [address] [place], [place] [address] Pharmacist1, [facility] [address] [place], [place] [address] 11/10/2024 11:00 AM EST Office Visit General Internal Medicine [facility] [address] [place], [place] [address] Tabitha Hall MD [address] [place], [place] [address] 12/27/2024 2:20 PM EDT Office Visit Neurology [facility] [address] [place], [place] [address] Alvin Aragon MD [address] [place], [place] [address] 01/05/2025 9:40 AM EDT Office Visit General Internal Medicine [facility] [address] [facility] [place] [place] [address] Tabitha Hall MD [address] [facility] [place] [address] 03/23/2025 9:30 AM EDT Nurse Only Rheumatology [address] [place], [place] [address] Pf, Nurse Rheum [address] [place] [address] [place] [address] 10/10/2025 9:40 AM EST Office Visit Rheumatology [address] [place], [place] [address] Agustin Erickson MD [address] [place] [address], [place] [address] Health Maintenance Due Date Last Done Comments Adult Wellness Visit 02/03/2004 Depression Monitoring 01/15/2024 01/14/2023 COVID-19 Vaccine ( season) 2024 06/25/2024, 07/22/2023, 02/21/2023, Additional history exists Diabetic Foot Exam 09/28/2024 01/14/2023, 0 06/07/2021, 07/27/2020 Postponed from 01/15/2024 (Contraindicated Today) HbA1c 12/26/2024 06/28/2024, 02/05, 06/12/2023, Additional history exists Albumin/Creatinine Ratio 03/05/2025 024, 01/14/2023, 04/15/2022, Additional history exists Diabetic Eye Exam 04/14/2025 04/14/2024, , 01/25/2021, Additional history exists TSH 05/04/2025 05/04/2024, 02/05, 06/12/2023, Additional history exists DXA Scan 08/18/2026 08/18/2024, 2022, 07/31/2020 DTap/Tdap Vaccines (3 - Td or Tdap) 06/27/2033 06/27/2023, 06/03/2012 Zoster Vaccines Completed 07/01/2019, 03/06, 10/06/2009 Pneumococcal Vaccine: 50+ Years Completed 06/07/2021, 01/07/2018, 03/21/2015 Influenza Vaccine (FLU shot) Completed 06/25/2024, 06/12/2023, 07/24/2021, Additional history exists VITAMIN D LEVEL ONCE IN A LIFETIME-USE SMARTSET# [id number] Completed 06/28/2024, 06/12/2023, 10/24/2021, Additional history exists [...] Documents on File Type Date Recorded Patient Credit Risk Review Officer Expl anation ANTOINETTE 06/06/2021 ANTOINETTE REESE ORDERS FOR LIFE-SUSTAINING TREATMENT Care Teams Hammerer Tab Relationship Specialty Start Date End Date Tabitha Hall MD [address] [place] [address] PCP - General Internal Medicine 07/27/20 documented as of this encounter
--- OUTSIDE RECORDS SUMMARY | 2024-11-17 01:04 | External Medical Summary | Summary of Care ---
Author Name Unknown Organization [facility] Address [address] [place] [address] Phone [phone] Care Team Providers Care Ore Buyer Name Role Phone Tabitha Hall MD Primary Care Provider + Reason for Visit * Reason Onset Date Comments Medication Refill 10/08/2024 Encounter Details Date Type Department Care Team (Late st Contact Info) Description 10/08/2024 Refill Family Medicine [address] [id number] Wilda Jean-Baptiste MD [address] [place] [address] [place] [address] Glaucoma of both eyes, unspecified glaucoma type Allergies Active Allergy Reactions Criticality Noted Date Comments Ibuprofen 06/11/2016 Alendronate Sodium 08/13/2016 Celecoxib Nausea/vomiting 12/22/2013 Cheese Flavoring Agent (Non-Screening) 08/27/2013 Monosodium Glutamate 08/13/2016 Penicillin G 06/11/2016 Salicylates Unknown 05/17/2021 Sulfa Antibiotics 06/11/2016 documented as of this encounter (statuses as of 10/12/2024) Medications BD Insulin Syringe 25G X 5/8" [...] 5 01/12/20 24 Active FreeStyle French 3 [place] DeviceIndications:D M (diabetes mellitus), type 2, uncontrolled, [...] TabletIndications:S IADH (syndrome of inappropriate ADH production) ([facility]) Take 1 Tablet by mouth in [...] 3 times a day. 180 Tablet 08/18/20 Active Vitamin B12 100 MCG Oral Tablet [...] every 30 days. 1 mL 08/26/20 Active Trulicity 0.75 MG/0.5ML Subcutaneous Solution Auto-injector (Dulaglutide)Indica tions:Controlled type 2 diabetes mellitus with hyperglycemia, without long-term current use of insulin ([facility]) Inject 0.75 mg under the skin [...] current use of insulin ([facility]) Take 1 Tablet by mouth 2 [...] as of this encounter (statuses as of 10/12/2024) Active Problems Problem Noted Date Diagnosed Date [...] as of this encounter (statuses as of 10/12/2024) Resolved Problems Problem Noted Date Diagnosed Date Resolved Date DM (diabetes mellitus), type 2, uncontrolled, with hyperosmolarity 06/29/2024 07/13/2024 Dislocation closed, finger, subsequent encounter 09/06/2020 07/13/2024 documented as of this encounter (statuses as of 10/12/2024) Immunizations Name Administration Dates Next Due COVID-19 [...] as of this encounter Miscellaneous Notes * Addendum Note - Hever Denis LPN - 10/12/2024 11:22 AM ESTAddended by: HEVER DENIS on: 10/12/2024 11:22 AM Modules accepted: Orders * Telephone Encounter - Allyson Decker CPhT - 10/11/2024 2:18 PM EST Jackie dejesus calling to check on status of Travoprost. Caller can be reached at [phone]. Thank you, Allyson Decker CPhT Lapel Stitcher II [facility] 10/11/2024,2:18 PM * Telephone Encounter - Ashlee Naranjo PHARM Tech - 10/08/2024 4:20 PM EST Jackie Dejesus calling to request a refill on Travoprost (RENEA Free) 0.004 % Ophthalmic Solution (Travatan Z). Medication was last prescribed by Carrie Grimes PA-C but patient is asking if PCP can take over the medication. Please advise if this is appropriate and send to [facility] [address] [address] if agreeable. Thank you, Ashlee Naranjo CPhT Lapel Stitcher Assessment Counselor [facility] 10/08/2024,4:20 PM documented in this encounter Plan of Treatment Upcoming Encounters Date Type Department Care Team (Late st Contact Info) Description 11/10/2024 10:30 AM EST Office Visit Pharmacy[facility] [address] [place], [place] [address] Pharmacist1, [facility] [address], [place] [address] 11/10/2024 11:00 AM EST Office Visit General Internal Medicine [facility] Check [address] [place] [address] Tabitha Hall MD [address], [place] [address] 12/27/2024 2:20 PM EDT Office Visit Neurology [facility] Check [address], [place] [address] Alvin Aragon MD [address] [place], [place] [address] 01/05/2025 9:40 AM EDT Office Visit General Internal Medicine [facility] [address], [place] [address] Tabitha Hall MD [address] [place] [address] 03/23/2025 9:30 AM EDT Nurse Only Rheumatology [place] [id number] [place], [place] [address] Pf, Nurse Rheum [facility] [address] [place], [place] [address] 10/10/2025 9:40 AM EST Office Visit Rheumatology [facility] [address] [place], [place] [address] Agustin Erickson MD [facility] [place], [place] [address] Health Maintenance Due Date Last Done Comments [...] D LEVEL ONCE IN A LIFETIME-USE SMARTSET# [id number] Completed 06/28/2024, 06/12/2023, 10/24/2021, Additional history exists [...] Documents on File Type Date Recorded 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
--- OUTSIDE RECORDS SUMMARY | 2024-11-17 01:04 | External Medical Summary | Summary of Care ---
Author Name Unknown Organization [facility] Address [address] [place] [address] Phone [phone] Care Team Providers Care Pediatrics Physician Name Role Phone Tabitha Hall MD Primary Care Provider + Reason for Visit * Reason Onset Date Comments Medication Refill 10/01/2024 Encounter Details Date Type Department Care Team (Late st Contact Info) Description 10/01/2024 Refill General Internal Medicine [facility] [address] [facility] [place] [address] Tabitha Hall MD 200 [facility] [place] [address] Generalized OA; Recurrent major depressive disorder, in [...] 5 01/12/20 24 Active FreeStyle French 3 [place] DeviceIndications:D M (diabetes mellitus), type 2, uncontrolled, [...] IADH (syndrome of inappropriate ADH production) ([facility]) Take 1 Tablet by mouth [...] without long-term current use of insulin ([facility]) Inject 0.75 mg under the [...] without long-term current use of insulin ([facility]) Take 1 Tablet by mouth [...] Takes in evening 30 Capsule 08/18/20 24 024 Discontin ued(Refil l) DULoxetine HCl 30 MG Oral Capsule Delayed Release Particles (Cymbalta)Indicatio ns:Generalized OA,Recurrent major depressive disorder, in partial remission (HCC) TAKE ONE CAPSULE BY MOUTH EVERY MORNING along with duloxetine 60 mg capsule ( total dose 90mg) ,DO NOT CUT, CRUSH, OR CHEW. Takes in evening 30 Capsule 08/18/20 24 024 Discontin ued(Refil l) documented as of this [...] 0 10/24/2021 Controlled type 2 diabetes m annie with [...] Telephone Encounter - Tabitha Hall MD - 10/01/2024 5:08 PM ESTSigned Prescriptions: Disp Refills DULoxetine HCl 30 MG Oral Capsule Delayed *30 Cap*5 Sig: TAKE ONE CAPSULE BY MOUTH EVERY MORNING along with duloxetine 60 mg capsule ( total dose 90mg) ,DO NOT CUT, CRUSH, OR CHEW. Takes in evening Authorizing Provider: TABITHA HALL DULoxetine HCl 60 MG Oral Capsule Delayed *30 Cap*5 Sig: TAKE ONE CAPSULE BY MOUTH EVERY MORNING along with duloxetine 30 mg capsule ( total dose 90mg) ,DO NOT CUT, CRUSH, OR CHEW. Takes in evening Authorizing Provider: TABITHA HALL * Telephone Encounter - Karin Wood [facility] - 10/01/2024 3:06 PM ESTPending Prescriptions: Disp Refills DULoxetine HCl 30 MG Oral Capsule Delayed *30 Cap*5 Sig: TAKE ONE CAPSULE BY MOUTH EVERY MORNING along with duloxetine 60 mg capsule ( total dose 90mg) ,DO NOT CUT, CRUSH, OR CHEW. Takes in evening DULoxetine HCl 60 MG Oral Capsule Delayed *30 Cap*5 Sig: TAKE ONE CAPSULE BY MOUTH EVERY MORNING along with duloxetine 30 mg capsule ( total dose 90mg) ,DO NOT CUT, CRUSH, OR CHEW. Takes in evening * Telephone Encounter - Karin Wood RP - 10/01/2024 3:05 PM EST RX's last prescribed by provider at [facility]. Please approve if appropriate. Thank you, Karin Wood, PharmD Clinical Pharmacist [facility] [phone] 10/01/2024, 3:06 PM * Telephone Encounter - Canelo Baig web analyst - 10/01/2024 2:57 PM EST Pt is out of meds. Did you pend patient's preferred pharmacy and medication before forwarding?yes Pharmacy: [facility] [address] Pending Prescriptions: Disp Refills DULoxetine HCl 30 MG Oral Capsule Delayed*30 Cap*0 Sig: TAKE ONE CAPSULE BY MOUTH EVERY MORNING along with duloxetine 60 mg capsule ( total dose 90mg) ,DO NOT CUT, CRUSH, OR CHEW. Takes in evening DULoxetine HCl 60 MG Oral Capsule Delayed*30 Cap*0 Sig: TAKE ONE CAPSULE BY MOUTH EVERY MORNING along with duloxetine 30 mg capsule ( total dose 90mg) ,DO NOT CUT, CRUSH, OR CHEW. Takes in evening Last Visit: 08/26/2024 (in office), 10/31/2020 (telemedicine) Next Visit: 11/10/2024 If no future appointments scheduled, and last appointment is greater than a year ago, please schedule patient for a follow-up appointment Last date the medication was ordered: 08/18/2024 Is this request for a controlled substance?No [...] AM EST Office Visit Pharmacy, [facility] [place] [address] [place] [address] Pharmacist1, [facility] [address] [facility] [place] [address] 11/10/2024 11:00 AM EST Office Visit General Internal Medicine [facility] [address], [place] [address] Tabitha Hall MD 200 [facility] [place], [place] [address] 12/27/2024 2:20 PM EDT Office Visit Neurology [facility] [address] [facility] [place], [place] [address] Alvin Aragon MD [address] [facility] [place], [place] [address] 01/05/2025 9:40 AM EDT Office Visit General Internal Medicine [facility] [address] [facility] [place], [place] [address] Tabitha Hall MD [address] [facility] [place], [place] [address] 03/23/2025 9:30 AM EDT Nurse Only Rheumatology [place] [address] [facility] [place], [place] [address] Pf, Nurse Rheum [facility] [place], [place] [address] 10/10/2025 9:40 AM EST Office Visit Rheumatology [place] [address] [address] [place], [place] [address] Agustin Erickson MD [facility] [place] [place] [address] Health Maintenance Due Date Last Done Comments [...] D LEVEL ONCE IN A LIFETIME-USE SMARTSET# [id number] Completed 06/28/2024, 06/12/2023, 10/24/2021, Additional history exists [...] Documents on File Type Date Recorded 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
--- OUTSIDE RECORDS SUMMARY | 2024-11-17 01:04 | External Medical Summary | Summary of Care ---
Author Name Unknown Organization [facility] Address [address] [place] [address] Phone [phone] Care Team Providers Care Freezer Worker Name Role Phone Tabitha Hall MD Primary Care Provider + Reason for Visit * Reason Comments eRx-Medication Refill Encounter Details Date Type Department Care Team (Late st Contact Info) Description 09/28/2024 Refill General Internal Medicine [facility] 200 [facility] [place] [address] Tabitha Hall MD 200 [place] [address] Hyperlipidemia with target LDL less than 100; Hyperlipidemia, unspecified hyperlipidemia type Allergies Active Allergy Reactions Criticality Noted [...] for vitamin b12 injections monthly. 100 Each 01/12/20 24 Active FreeStyle French 3 [place] DeviceIndications:D M (diabetes mellitus), type 2, uncontrolled, with hyperosmolarity (HCC) Use as directed. 1 Each 03/29/20 24 Active FreeStyle French 3 Plus SensorIndications:D M (diabetes mellitus), type 2, uncontrolled, with hyperosmolarity (HCC) Change sensor every 15 days. 2 Each 07/29/20 Active Vitamin C 500 MG Oral Tablet [...] TabletIndications:S IADH (syndrome of inappropriate ADH production) ([facility]) Take 1 Tablet by mouth [...] skin once a week. 2 mL 09/27/20 Active Rosuvastatin Calcium 5 MG Oral Tablet [...] 6:38 AM EST Refused Prescriptions: Disp Refills Rosuvastatin Calcium 5 MG Oral Tablet (Cre*12 Tab*11 Sig: TAKE 1 TABLET BY MOUTH ONCE A DAY ON FRIDAY, FRIDAY, AND FRIDAY ONLY.Refused By: KASIA GASCA for Refusal: Too soon documented in this encounter Plan of Treatment Upcoming Encounters Date Type Department Care Team (Late st Contact Info) Description 11/10/2024 10:30 AM EST Office Visit Pharmacy, [facility] [place] [address] [place], [place] [address] Pharmacist1, [facility] [address] [place], [place] [address] 11/10/2024 11:00 AM EST Office Visit General Internal Medicine [facility] [place] [address], [place] [address] Tabitha Hall MD [address] [facility] [place] [address] 12/27/2024 2:20 PM EDT Office Visit Neurology [facility] [place] [address] [place] [address] Alvin Aragon MD [address] [place], [place] [address] 01/05/2025 9:40 AM EDT Office Visit General Internal Medicine [facility] [address] [facility] [place] [address] Tabitha Hall MD 200 [facility] [place] [address] 03/23/2025 9:30 AM EDT Nurse Only Rheumatology [address] [place], [place] [address] Pf, Nurse Rheum [address] [place] [address] [place] [address] 10/10/2025 9:40 AM EST Office Visit Rheumatology [address] [place], [place] [address] Agustin Erickson MD [address] [place] [address] [place], [place] [address] Health Maintenance Due Date Last Done Comments Adult Wellness Visit 02/03/2004 Depression Monitoring 01/15/2024 01/14/2023 COVID-19 Vaccine ( season) 2024 06/25/2024, 07/22/2023, 02/21/2023, Additional history exists Diabetic Foot Exam 09/28/2024 01/14/2023, 0 06/07/2021, 07/27/2020 Postponed from 01/15/2024 (Contraindicated Today) HbA1c 12/26/2024 06/28/2024, 02/05, 06/12/2023, Additional history exists Albumin/Creatinine Ratio 03/05/202503/05/2 024, 01/14/2023, 04/15/2022, Additional history exists Diabetic Eye Exam 04/14/2025 04/14/2024, , 01/25/2021, Additional history exists TSH 05/04/2025 05/04/2024, 02/05, 06/12/2023, Additional history exists DXA Scan 08/18/2026 08/18/2024, 11/0 11/2021, 07/31/2020 DTap/Tdap Vaccines (3 - Td or Tdap) 06/27/2033 06/27/2023, 06/03/2012 Zoster Vaccines Completed 07/01/2019, 03/06, 10/06/2009 Pneumococcal Vaccine: 50+ Years Completed 06/07/2021, 01/07/2018, 03/21/2015 Influenza Vaccine (FLU shot) Completed 06/25/2024, 06/12/2023, 07/24/2021, Additional history exists VITAMIN D LEVEL ONCE IN A LIFETIME-USE SMARTSET# [id number] Completed 06/28/2024, 06/12/2023, 10/24/2021, Additional history exists [...] as of this encounter Visit Diagnoses Diagnosis Hyperlipidemia, unspecified hyperlipidemia type documented in this encounter Advance Directives Documents on File Type Date Recorded Patient Hospice Care Transitions Coordinator Expl anation ANTOINETTE 06/06/2021 ANTOINETTE REESE ORDERS FOR LIFE-SUSTAINING TREATMENT Care Teams Freezer Worker Relationship Specialty Start Date End Date Tabitha Hall MD [address] [place] [address] PCP - General Internal Medicine 07/27/20 documented as of this encounter
--- OUTSIDE RECORDS SUMMARY | 2024-11-17 01:04 | External Medical Summary | Summary of Care ---
Author Name Unknown Organization [facility] Address [address] [place] [address] Phone [phone] Care Team Providers Care Salon Sales Consultant Name Role Phone Tabitha Hall MD Primary Care Provider + Reason for Visit * Reason Onset Date Comments Medication Administration 09/21/2024 Prolia Encounter Details Date Type Department Care Team (Late st Contact Info) Description 09/21/2024 9:30 AM EST Nurse Only Rheumatology [facility] [address] [facility] [address] [facility] [address] Medication Administration (Prolia) Allergies Active Allergy Reactions Criticality Noted Date Comments Ibuprofen 06/11/2016 Alendronate Sodium 08/13/2016 Celecoxib Nausea/vomiting 12/22/2013 Cheese Flavor 08/27/2013 Monosodium Glutamate 08/13/2016 Penicillin G 06/11/2016 Salicylates Unknown 05/17/2021 Sulfa Antibiotics 06/11/2016 documented as of this encounter (statuses as of 09/21/2024) Medications BD Insulin Syringe 25G X 5/8" [...] 5 01/12/20 24 Active FreeStyle French 3 [place] DeviceIndications:D M (diabetes mellitus), type 2, uncontrolled, [...] the morning. 1 daily. 30 Tablet 08/18/20 Active CoQ10 100 MG Oral Capsule Take 1 Capsule by mouth in the morning. 30 Capsule 08/18/20 Active Diclofenac Sodium 1 % External Gel [...] OA,Recurrent major depressive disorder, in partial remission ([facility]) TAKE ONE CAPSULE BY MOUTH EVERY MORNING [...] Friday only. 12 Tablet 08/18/20 24 Active metFORMIN HCl ER 500 MG Oral Tablet Extended Release 24 Hour (Glucophage XR)Indications:Cont rolled type 2 diabetes mellitus with hyperglycemia, without long-term current use of insulin ([facility]) Take 1 Tablet by mouth 2 times a day with morning and evening meals. 60 Tablet 08/18/20 24 Active Rosuvastatin Calcium 5 MG Oral Tablet (Crestor)Indication s:Hyperlipidemia with target LDL less than 100,Hyperlipidemia, unspecified hyperlipidemia type Take 1 Tablet by mouth once a day on Friday, Friday, and Friday only. 12 Tablet 08/18/20 24 Active Sodium Chloride 1 GM Oral TabletIndications:S IADH (syndrome of inappropriate ADH production) ([facility]) Take 1 Tablet by mouth in the morning. 30 Tablet 08/18/20 24 Active Travoprost (RENEA Free) 0.004 % Ophthalmic Solution (Travatan Z)Indications:Glauc charlee of both eyes, unspecified glaucoma type Instill 1 Drop into both eyes at bedtime. 1 daily 2.5 mL 08/18/20 24 Active Trulicity 0.75 MG/0.5ML Subcutaneous Solution Auto-injector (Dulaglutide)Indica tions:Controlled type 2 diabetes mellitus with hyperglycemia, without long-term current use of insulin ([facility]) Inject 0.75 mg under the skin once a week. 2 mL 08/18/20 Active Acetaminophen 325 MG Oral Tablet (Tylenol)Indication s:Generalized OA Take 2 Tablets by mouth 3 times a day. 180 Tablet 08/18/20 Active Vitamin B12 100 MCG Oral Tablet Take 1 Tablet by mouth in the morning. 30 Tablet 08/18/20 Active Tylenol 325 MG Oral Capsule (Acetaminophen) [...] every 30 days. 1 mL 08/26/20 Active documented as of this encounter (statuses as of 09/21/2024) Active Problems Problem Noted Date Diagnosed Date [...] as of this encounter (statuses as of 09/21/2024) Resolved Problems Problem Noted Date Diagnosed Date Resolved Date DM (diabetes mellitus), type 2, uncontrolled, with hyperosmolarity 06/29/2024 07/13/2024 Dislocation closed, finger, subsequent encounter 09/06/2020 07/13/2024 documented as of this encounter (statuses as of 09/21/2024) Immunizations Name Administration Dates Next Due COVID-19 [...] Sign Reading Time Taken Comments Blood Pressure - - Pulse - - Temperature 36.5 C (97.7 F) 09/21/2024 9:39 AM ES T Respiratory Rate - - Oxygen Saturation - - Inhaled Oxygen Concentration - - Weight - - Height - - Body Mass Index - - documented in this encounter Patient Instructions * Patient Instructions* Janene Malcolm LPN - 09/21/2024 9:36 AM EST MEDICATION GUIDE Prolia (AL-bubba-a) (denosumab) Injection Read the Medication Guide that comes with Prolia before you start taking it and each time you get arefill. There may be new information. This Medication Guide does not take the place of talking withyour doctor about your medical condition or treatment. Talk to your doctor if you have any questions about Prolia. What is the most important information I should know about Prolia? Prolia can cause serious side effects includin. Low calcium levels in your blood (hypocalcemia). Prolia may lower the calcium levels in your blood. If you have low blood calcium before you start receiving Prolia, it may get worse during treatment. Your low blood calcium must be treated before you receive Prolia. Most people with low blood calcium levels do not have symptoms, but some people may have symptoms. Call your doctor right away if you have symptoms of low blood calcium such as: Spasms, twitches, or cramps in your muscles Numbness or tingling in your fingers, toes, or around your mouth Your doctor may prescribe calcium and vitamin D to help prevent low calcium levels in your blood while you take Prolia. Take calcium and vitamin D as your doctor tells you to. 2. Serious infections. Serious infections in your skin, lower stomach area (abdomen), bladder, or ear may happen if you take Prolia. Inflammation of the inner lining of the heart (endocarditis) due to an infection also mayhappen more often in people who take Prolia. You may need to go to the hospital for treatment if you develop an infection. Prolia is a medicine that may affect your immune system. People who have weakened immune system or take medicines that affect the immune system may have an increased risk for developing serious infections. Call your doctor right away if you have any of the following symptoms of infection: Fever or chills Skin that looks red or swollen and is hot or tender to touch Severe abdominal pain Frequent or urgent need to urinate or burning feeling when you urinate 3. Skin problems. Skin problems such as inflammation of your skin (dermatitis), rash, and eczema may happen if you take Prolia. Call your doctor if you have any of the following symptoms of skin problems that do not go away or get worse: Redness Itching Small bumps or patches (rash) Your skin is dry or feels like leather Blisters that ooze or become crusty Skin peeling 4. Severe jaw bone problems (osteonecrosis). Severe jaw bone problems may happen when you take Prolia. Your doctor should examine your mouth before you start Prolia. Your doctor may tell you to see your dentist before you start Prolia. It is important for you to practice good mouth care during treatment with Prolia. Call your doctor right away if you have any of these side effects. What is Prolia? Prolia is a prescription medicine used to treat osteoporosis (thinning and weakening of bone) in women after menopause (change of life) who Have an increased risk for fractures (broken bones). Cannot use another osteoporosis medicine or other osteoporosis medicines did not work well. Who should not receive Prolia? Do not take Prolia if you have been told by your doctor that your blood calcium level is too low. What should I tell my doctor before receiving Prolia? Before taking Prolia, tell your doctor if you: Have low blood calcium. Cannot take daily calcium and vitamin D. Had parathyroid or thyroid surgery (glands located in your neck). Have been told you have trouble absorbing minerals in your stomach or intestines (malabsorptionsyndrome). Have kidney problems or are on kidney dialysis. Plan to have dental surgery or teeth removed. Are or plan to become . Prolia may harm your unborn baby. Tell your doctor right away if you become while taking Prolia. Surveillance Program: Prolia is not intended for use in women. If you become while taking Prolia, talk to your doctor about enrolling with [employer] or call (l-207-66-[facility]). The purpose of this program is to collect information about women who have become while taking Prolia. Are breast-feeding or plan to breast-feed. It is not known if Prolia passes into your breast milk. You and your doctor should decide if you will take Prolia or breast-feed. You should not do both. Tell your doctor about all the medicines you take, including prescription and nonprescription drugs, vitamins, and herbal supplements. Know the medicines you take. Keep a list of medicines with you to show to your doctor or pharmacistwhen you get a new medicine. How will I receive Prolia? Prolia is an injection that will be given to you by a healthcare professional. Prolia is injected under your skin (subcutaneous). You will receive Prolia 1 time every 6 months. You should take calcium and vitamin D as your doctor tells you to while you receive Prolia. If you miss a dose of Prolia, you should receive your injection as soon as you can. Take good care of your teeth and gums while you receive Prolia. Sherman and floss your teeth regularly. Tell your dentist that you are receiving Prolia before you have dental work. What are the possible side effects of Prolia? Prolia may cause serious side effects. See What is the most important information I should know about Prolia? Long-term effects on bone: It is not known if the use of Prolia over a long period of time may cause slow healing of broken bones or unusual fractures. The most common side effects of Prolia are: Back pain Pain in your arms and legs High cholesterol Muscle pain Bladder infection These are not all the possible side effects of Prolia. For more information, ask your doctor or pharmacist. Call your doctor for medical advice about side effects. You may report side effects to FDA at 3-089-TPD-5379. How should I handle Prolia if I need to pick it up from a pharmacy? Keep Prolia in a refrigerator at 36F to 46F (2C to 8C) in the original carton. Do not freeze Prolia. When you remove Prolia from the refrigerator, Prolia must be kept at room temperature [up to 77F (25C)] in the original carton and must be used within 14 days. Do not keep Prolia at temperatures above 77F (25C). Warm temperatures will affect how Prolia works. Do not shake Prolia. Keep Prolia in the original carton to protect from light. Keep Prolia and all medicines out of reach of children. General information about Prolia Do not give Prolia to other people even if they have the same symptoms that you have. It may harm them. This Medication Guide summarizes the most important information about Prolia. If you would like more information, talk with your doctor. You can ask your doctor or pharmacist for information about Prolia that is written for health professionals. For more information, go to www.[employer] or call [employer] at . What are the ingredients in Prolia? Active ingredient: denosumab Inactive ingredients: sorbitol, acetate, polysorbate 20 (prefilled syringe only), Water for Injection ([facility]SING [facility]), and sodium hydroxide What is osteoporosis? Osteoporosis is a disease in which the bones become thin and weak, increasing the chance of having a broken bone. Osteoporosis usually causes no symptoms until a fracture happens. The most common fractures are in the spine (backbone). They can shorten height, even without causing pain. Over time, the spine can become curved or deformed and the body bent over. Fractures from osteoporosis can also happen in almost any bone in the body, for example: the wrist, rib, or hip. Once you have had a fracture, the chance for more fractures greatly increases. The following risk factors increase your chance of getting fractures from osteoporosis: Past broken bones from osteoporosis Very low bone mineral density (BMD) Frequent falls Limited movement, such as using a wheelchair Medical conditions likely to cause bone loss, such as some kinds of arthritis Taking steroid medicines called glucocorticoids, such as prednisone Other medicines that may cause bone loss, for example: seizure medicines (such as phenytoin), blood thinners (such as heparin), high doses of vitamin A What can I do to treat osteoporosis? There are many steps you can take to treat osteoporosis. Taking Prolia, along with calcium and vitamin D, may be one option for you. [employer], a subsidiary of [employer]. [address] [place], [place] [address] This Medication Guide has been approved by the US Food and Drug Administration. 1xxxxxx - v1 Issued: 03/2010 documented in this encounter Progress Notes * Janene Malcolm LPN - 09/21/2024 9:36 AM EST Lilibeth Kong presents today for administration of Prolia. She understands the benefits and risks of this treatment. An educational pamphlet was given to the patient. Prolia 60 mg was administered subcutaneously. The patient tolerated the procedure without problems. She will return in 6 months for the next injection and evaluation. Janene Malcolm LPN documented in this encounter Nursing Notes * Janene Malcolm LPN - 09/21/2024 9:37 AM EST Chief Complaint Patient presents with Medication Administration Prolia Patient denies being on any antibiotics, no current infections, no upcoming surgeries or dental procedures, no open wounds or sores, no current fractures. documented in this encounter Plan of Treatment Upcoming Encounters Date Type Department Care Team (Late st Contact Info) Description 11/10/2024 10:30 AM EST Office Visit Pharmacy, [facility] [address] [place] [address] [address] Pharmacist1, [facility] [address] [facility] [place] [address] 11/10/2024 11:00 AM EST Office Visit General Internal Medicine [facility] [place] [address] [place] [address] Tabitha Hall MD [address] [facility] [place] [address] 12/27/2024 2:20 PM EDT Office Visit Neurology [facility] [place] [address] [place] [address] Alvin Aragon MD [address] [place] [address] 01/05/2025 9:40 AM EDT Office Visit General Internal Medicine [facility] [address] [place] [address] Tabitha Hall MD [address] [place], [place] [address] 03/23/2025 9:30 AM EDT Nurse Only Rheumatology [address] [place] [address] Pf, Nurse Rheum [address] [place] [address], [place] [address] 10/10/2025 9:40 AM EST Office Visit Rheumatology [address], [place] [address] Agustin Erickson MD [address] [place] [address], [place] [address] Health Maintenance Due Date Last Done Comments [...] D LEVEL ONCE IN A LIFETIME-USE SMARTSET# [id number] Completed 06/28/2024, 06/12/2023, 10/24/2021, Additional history exists [...] of this encounter Visit Diagnoses Diagnosis Senile osteoporosis- Primary documented in this encounter Administered Medications Inactive Administered Medications - up to 3 most recent administrations Medication Order MAR Action Action Date Dose Rate Site Denosumab (Prolia) subcut inj 60 mg 60 mg, Subcutaneous, ONCE, On Fri09/21/24 at 0930, For 1 doseIndications:Senile osteoporosis Given 09/21/2024 9:40 AM EST 60 mg Arm Left Upper documented in this encounter Advance Directives Documents on File Type Date Recorded Patient Veterans' Counselor Expl anation ANTOINETTE 06/06/2021 ANTOINETTE REESE ORDERS FOR LIFE-SUSTAINING TREATMENT Care Teams Salon Sales Consultant Relationship Specialty Start Date End Date Tabitha Hall MD [address] [facility] [address] PCP - General Internal Medicine 07/27/20 documented as of this encounter
--- OUTSIDE RECORDS SUMMARY | 2024-11-17 01:04 | External Medical Summary | Summary of Care ---
Author Name Unknown Organization [facility] Address [address] [place] [address] Phone [phone] Care Team Providers Care High Density Press Laborer Name Role Phone Tabitha Hall MD Primary Care Provider + Reason for Visit * Reason Onset Date Comments Med Request 09/24/2024 Encounter Details Date Type Department Care Team (Late st Contact Info) Description 09/24/2024 Refill General Internal Medicine Ilana [facility] [place] [address] [facility] [place] [place] [address] Tabitha Hall MD 200 [place] [address] Controlled type 2 diabetes mellitus with hyperglycemia, without long-term current use of insulin ([facility]) Allergies Active Allergy Reactions Criticality Noted Date Comments Ibuprofen 06/11/2016 Alendronate Sodium 08/13/2016 Celecoxib Nausea/vomiting 12/22/2013 Cheese Flavor 08/27/2013 Monosodium Glutamate 08/13/2016 Penicillin G 06/11/2016 Salicylates Unknown 05/17/2021 Sulfa Antibiotics 06/11/2016 documented as of this encounter (statuses as of 09/27/2024) Medications BD Insulin Syringe 25G X 5/8" [...] 5 01/12/20 24 Active FreeStyle French 3 [place] DeviceIndications:D M (diabetes mellitus), type 2, uncontrolled, [...] OA,Recurrent major depressive disorder, in partial remission ([facility]) TAKE ONE CAPSULE BY MOUTH EVERY MORNING [...] long-term current use of insulin ([facility]) Take 1 Tablet by mouth 2 times [...] TabletIndications:S IADH (syndrome of inappropriate ADH production) ([facility]) Take 1 Tablet by mouth [...] days. 1 mL 11 08/26/20 24 Active Trulicity 0.75 MG/0.5ML Subcutaneous Solution Auto-injector (Dulaglutide)Indica tions:Controlled type 2 diabetes mellitus with hyperglycemia, without long-term current use of insulin ([facility]) Inject 0.75 mg under the skin once a week. 2 mL 09/27/20 24 Active Trulicity 0.75 MG/0.5ML Subcutaneous Solution Auto-injector (Dulaglutide)Indica tions:Controlled type 2 diabetes mellitus with hyperglycemia, without long-term current use of insulin ([facility]) Inject 0.75 mg under the skin once a week. 2 mL 08/18/20 24 024 Discontin ued(Refil l) documented as of this encounter (statuses as of 09/27/2024) Active Problems Problem Noted Date Diagnosed Date [...] as of this encounter (statuses as of 09/27/2024) Resolved Problems Problem Noted Date Diagnosed Date Resolved Date DM (diabetes mellitus), type 2, uncontrolled, with hyperosmolarity 06/29/2024 07/13/2024 Dislocation closed, finger, subsequent encounter 09/06/2020 07/13/2024 documented as of this encounter (statuses as of 09/27/2024) Immunizations Name Administration Dates Next Due COVID-19 [...] encounter Miscellaneous Notes * Telephone Encounter - Deisy Venegas MD - 09/27/2024 2:01 PM ESTSigned Prescriptions: Disp Refills Trulicity 0.75 MG/0.5ML Subcutaneous Solut*2 mL 0 Sig: Inject 0.75 mg under the skin once a week. Authorizing Provider: DEISY VENEGAS * Telephone Encounter - Jennifer Mccarthy CPhT - 09/24/2024 1:42 PM EST [facility] calling to request a refill on .Trulicity 0.75 MG/0.5ML Subcutaneous Solution Auto-injector (Dulaglutide) Medication was last prescribed by [facility] provider but patient is asking if PCP can take over the medication. Please advise if this is appropriate and send to [facility] if agreeable. Thank you, Jennifer Mccarthy Application Integration Engineer II [facility] ([facility] (formerly Telepharm[facility]) 09/24/2024 1:45 PM documented in this encounter Plan of Treatment Upcoming Encounters Date Type Department Care Team (Late st Contact Info) Description 11/10/2024 10:30 AM EST Office Visit Pharmacy, [facility] [place] [address] [place] [employer], [place] [address] Pharmacist1, [facility] [address] [place], [place] [address] 11/10/2024 11:00 AM EST Office Visit General Internal Medicine [facility] [place] [address] [place] [address] Tabitha Hall MD [address] [facility] [place] [address] 12/27/2024 2:20 PM EDT Office Visit Neurology [facility] [address] [place], [place] [address] Alvin [place] MD [address] [place] [address] 01/05/2025 9:40 AM EDT Office Visit General Internal Medicine [facility] [place] [address] [place] [address] Tabitha Hall MD [address] [place], [place] [address] 03/23/2025 9:30 AM EDT Nurse Only Rheumatology [facility] [place] [address] [place] [address] Pf, [facility] [address] [place] [address] 10/10/2025 9:40 AM EST Office Visit Rheumatology [facility] [place] [address] [place], [place] [address] Agustin Erickson MD [facility] [address] [place], [place] [address] Health Maintenance Due Date Last Done Comments [...] D LEVEL ONCE IN A LIFETIME-USE SMARTSET# [id number] Completed 06/28/2024, 06/12/2023, 10/24/2021, Additional history exists [...] Documents on File Type Date Recorded Patient Financial Reporting Specialist Expl anation POLST 06/06/2021 ANTOINETTE REESE ORDERS FOR LIFE-SUSTAINING TREATMENT Care Teams High Density Press Laborer Relationship Specialty Start Date End Date Tabitha Hall MD [address] [facility] [place] [address] PCP - General Internal Medicine 07/27/20 documented as of this encounter
--- OUTSIDE RECORDS SUMMARY | 2024-11-17 01:04 | External Medical Summary | Summary of Care ---
Author Name Unknown Organization [facility] Address [address] [place] [address] Phone [phone] Care Team Providers Care Painter Helper Spray Name Role Phone Tabitha Hall MD Primary Care Provider + Reason for Visit * Reason Onset Date Comments Medication Refill 10/26/2024 Encounter Details Date Type Department Care Team (Late st Contact Info) Description 10/26/2024 Refill General Internal Medicine [facility] 200 [facility] [place] [address] Tabitha Hall MD 200 [facility] [place] [address] Encounter for long-term (current) use of medications*; Controlled type 2 diabetes mellitus with hyperglycemia, without long-term current use of insulin ([facility]) Allergies Active Allergy Reactions Criticality Noted Date Comments Ibuprofen 06/11/2016 Alendronate Sodium 08/13/2016 Celecoxib Nausea/vomiting 12/22/2013 Cheese Flavoring Agent (Non-Screening) 08/27/2013 Monosodium Glutamate 08/13/2016 Penicillin G 06/11/2016 Salicylates Unknown 05/17/2021 Sulfa Antibiotics 06/11/2016 documented as of this encounter (statuses as of 10/26/2024) Medications BD Insulin Syringe 25G X 5/8" [...] 5 01/12/20 24 Active FreeStyle French 3 [place] DeviceIndications:D M (diabetes mellitus), type 2, uncontrolled, [...] in the morning. 30 Tablet 08/18/20 Active Cholecalciferol 50 MCG (1999 UT) Oral [...] a week. 2 mL 10/26/19 25 Active Trulicity 0.75 MG/0.5ML Subcutaneous Solution Auto-injector (Dulaglutide)Indica tions:Controlled type 2 diabetes mellitus with hyperglycemia, without long-term current use of insulin (HCC) Inject 0.75 mg under the skin once a week. 2 mL 09/27/20 24 025 Discontin ued(Refil l) documented as of this encounter (statuses as of 10/26/2024) Active Problems Problem Noted Date Diagnosed Date [...] as of this encounter (statuses as of 10/26/2024) Resolved Problems Problem Noted Date Diagnosed Date Resolved Date DM (diabetes mellitus), type 2, uncontrolled, with hyperosmolarity 06/29/2024 07/13/2024 Dislocation closed, finger, subsequent encounter 09/06/2020 07/13/2024 documented as of this encounter (statuses as of 10/26/2024) Immunizations Name Administration Dates Next Due COVID-19 [...] encounter Miscellaneous Notes * Telephone Encounter - Tay Bruno RPh - 10/26/2024 4:28 PM EST Signed Prescriptions: Disp Refills Trulicity 0.75 MG/0.5ML Subcutaneous Solut*2 mL 0 Sig: Inject 0.75 mg under the skin once a week.Authorizing Provider: TABITHA HALL User: TAY BRUNO * Telephone Encounter - Tay Bruno RPh - 10/26/2024 4:28 PM EST Labs ordered, with office visit scheduled for 11/10/2024. Authorizing refill(s) of med(s) until then. Thank you, Tay Bruno PharmD, FILEMON Clinical Pharmacist [facility] ([facility]) 10/26/24 4:28 PM [phone] * Telephone Encounter - Ashok Bagley, mill attendant - 10/26/2024 1:55 PM EST Did you pend patient's preferred pharmacy and medication before forwarding?yes Pharmacy: [facility] [address] Pending Prescriptions: Disp Refills Trulicity 0.75 MG/0.5ML Subcutaneous Solu*2 mL 0 Sig: Inject 0.75 mg under the skin once a week. Last Visit: 08/26/2024 (in office), 10/31/2020 (telemedicine) Next Visit: 11/10/2024 If no future appointments scheduled, and last appointment is greater than a year ago, please schedule patient for a follow-up appointment Last date the medication was ordered: 09/27/2024 Is this request for a controlled substance?No [...] Office Visit Pharmacy, [facility] [place] [address] [facility] [place] [address] Pharmacist1, [facility] [address] [place] [address] 11/10/2024 11:00 AM EST Office Visit General Internal Medicine [facility] [address] [place] [address] Tabitha Hall MD [address] [place] [address] 12/27/2024 2:20 PM EDT Office Visit Neurology [facility] [address] [facility] [place] [address] Alvin Aragon MD 200 [facility] [place] [address] 01/05/2025 9:40 AM EDT Office Visit General Internal Medicine [facility] [address] [place] [address] Tabitha Hall MD 200 [facility] [place] [address] 03/23/2025 9:30 AM EDT Nurse Only Rheumatology [facility] [address] [place] [phone] Pf, Nurse Rheum [facility] [employer] [place], [place] [address] 10/10/2025 9:40 AM EST [facility] [place] [address] [place] [phone] Agustin Erickson MD [address] [place], [place] [address] Scheduled Orders Name Type Priority Associated Diagnoses Orde r Schedule LIPID PANEL WITH DIRECT LDL IF TG IS HIGH Lab Routine Controlled type 2 diabetes mellitus with hyperglycemia, without long-term current use of insulin (HCC) Encounter for long-term (current) use of medications Expected: 11/09/2024 (Approximate), Expires: 10/27/2025 Health Maintenance Due Date Last Done Comments [...] D LEVEL ONCE IN A LIFETIME-USE SMARTSET# [id number] Completed 06/28/2024, 06/12/2023, 10/24/2021, Additional history exists [...] as of this encounter Visit Diagnoses Diagnosis Encounter for long-term (current) use of medications- Primary Encounter for long-term (current) use of other medications Controlled type 2 diabetes mellitus with hyperglycemia, without long-term current use of insulin (HCC) documented in this encounter Advance Directives Documents on File Type Date Recorded Patient Seat Trimmer Expl anation POLST 06/06/2021 ANTOINETTE REESE ORDERS FOR LIFE-SUSTAINING TREATMENT Care Teams Painter Helper Spray Relationship Specialty Start Date End Date Tabitha Hall MD 200 [facility] [place] [address] PCP - General Internal Medicine 07/27/20 documented as of this encounter
--- OUTSIDE RECORDS SUMMARY | 2024-11-17 01:04 | External Medical Summary | Summary of Care ---
Author Name Unknown Organization [facility] Address [address] [place] [address] Phone [phone] Care Team Providers Care Asbestos Brake Lining Finisher Name Role Phone Tabitha Hall MD Primary Care Provider + Reason for Visit * Reason Comments eRx-Medication Refill Encounter Details Date Type Department Care Team (Late st Contact Info) Description 10/12/2024 Refill General Internal Medicine [facility] 200 [facility] [place] [address] Tabitha Hall MD 200 [facility] [address] Controlled type 2 diabetes mellitus with hyperglycemia, without long-term current use of insulin ([facility]) Allergies Active Allergy Reactions Criticality Noted Date Comments Ibuprofen 06/11/2016 Alendronate Sodium 08/13/2016 Celecoxib Nausea/vomiting 12/22/2013 Cheese Flavoring Agent (Non-Screening) 08/27/2013 Monosodium Glutamate 08/13/2016 Penicillin G 06/11/2016 Salicylates Unknown 05/17/2021 Sulfa Antibiotics 06/11/2016 documented as of this encounter (statuses as of 10/13/2024) Medications BD Insulin Syringe 25G X 5/8" 1 ML (Insulin Syringe-Needle U-100)Indications: Controlled type 2 diabetes mellitus with hyperglycemia, without long-term current use of insulin (HCC),Type 2 diabetes mellitus with hemoglobin A1c goal of less than 8.0% (HCC) Use to inject B-12 injection once a month. 10 Each 1 022 Active BD SafetyGlide Needle 25G X 1" (Needle (Disp)) Use for vitamin b12 injections monthly. 100 Each 5 024 Active FreeStyle French 3 [place] DeviceIndications: DM (diabetes mellitus), type 2, uncontrolled, with hyperosmolarity (HCC) Use as directed. 1 Each 024 Active FreeStyle Frenhc 3 Plus SensorIndications: DM (diabetes mellitus), type 2, uncontrolled, with hyperosmolarity (HCC) Change sensor every 15 days. 2 Each Active Vitamin C 500 MG Oral Tablet (Ascorbic Acid) Take 1 Tablet by mouth in the morning. 30 Tablet Active Calcium Carbonate-Vitamin D 500-5 MG-MCG Oral TabletIndications: Age-related osteoporosis with current pathological fracture with routine healing, subsequent encounter Take 1 Tablet by mouth in the morning. 30 Tablet Active Cholecalciferol 50 MCG (2000 UT) Oral TabletIndications: Age-related osteoporosis with current pathological fracture with routine healing, subsequent encounter Take 1 Tablet by mouth in the morning. 1 daily. 30 Tablet Active CoQ10 100 MG Oral Capsule Take 1 Capsule by mouth in the morning. 30 Capsule Active Diclofenac Sodium 1 % External Gel (Voltaren)Indicati ons:Generalized OA Apply topically to affected area 4 times a day as needed for Other (2 gm to affected joint up to 4 x daily as needed). 350 g Active Additional Information Patient taking differently:TopicalTID(AM/NOON/HS), Apply [...] to breakfast or other meds) 45 Tablet Active Magnesium 250 MG Oral Tablet Take 1 Tablet by mouth once a day on Friday, Friday, and Friday only. 12 Tablet Active Sodium Chloride 1 GM Oral TabletIndications: SIADH (syndrome of inappropriate ADH production) (HCC) Take 1 Tablet by mouth in the morning. 30 Tablet Active Acetaminophen 325 MG Oral Tablet (Tylenol)Indicatio ns:Generalized OA Take 2 Tablets by mouth 3 times a day. 180 Tablet Active Vitamin B12 100 MCG Oral Tablet Take 1 Tablet by mouth in the morning. 30 Tablet Active Tylenol 325 MG Oral Capsule (Acetaminophen) Take by mouth. Active Magnesium Hydroxide 400 MG/5ML Oral Suspension (Mom) Take by mouth daily as needed for Constipation. Active Hydrocortisone 1 % External Cream Apply topically to affected area 2 times a day. Active Cyanocobalamin 1000 MCG/ML Injection Solution (Cyanocobalamin)In dications:B12 deficiency Inject 1 mL into a large muscle every 30 days. 1 mL Active Trulicity 0.75 MG/0.5ML Subcutaneous Solution Auto-injector (Dulaglutide)Indic ations:Controlled type 2 diabetes mellitus with hyperglycemia, without long-term current use of insulin ([facility]) Inject 0.75 mg under the skin once a week. 2 mL Active Rosuvastatin Calcium 5 MG Oral Tablet (Crestor)Indicatio ns:Hyperlipidemia with target LDL less than 100,Hyperlipidemia , unspecified hyperlipidemia type Take 1 Tablet by mouth once a day on Friday, Friday, and Friday only. 12 Tablet 024 Active DULoxetine HCl 30 MG Oral Capsule Delayed Release Particles (Cymbalta)Indicati ons:Generalized OA,Recurrent major depressive disorder, in partial remission (HCC) TAKE ONE CAPSULE BY MOUTH EVERY MORNING along with duloxetine 60 mg capsule ( total dose 90mg) ,DO NOT CUT, CRUSH, OR CHEW. Takes in evening 30 Capsule 5 024 Active DULoxetine HCl 60 MG Oral Capsule Delayed Release Particles (Cymbalta)Indicati ons:Generalized OA,Recurrent major depressive disorder, in partial remission (HCC) TAKE ONE CAPSULE BY MOUTH EVERY MORNING along with duloxetine 30 mg capsule ( total dose 90mg) ,DO NOT CUT, CRUSH, OR CHEW. Takes in evening 30 Capsule 5 024 Active Travoprost (RENEA Free) 0.004 % Ophthalmic Solution (Travatan Z)Indications:Glau coma of both eyes, unspecified glaucoma type Instill 1 Drop into both eyes at bedtime. 1 daily 2.5 mL 2 025 Active metFORMIN HCl ER 500 MG Oral Tablet Extended Release 24 Hour (Glucophage XR)Indications:Con trolled type 2 diabetes mellitus with hyperglycemia, without long-term current use of insulin ([facility]) TAKE 1 TABLET BY MOUTH 2 TIMES A DAY WITH MORNING AND EVENING MEALS. 60 Tablet 5 025 Active metFORMIN HCl ER 500 MG Oral Tablet Extended Release 24 Hour (Glucophage XR)Indications:Con trolled type 2 diabetes mellitus with hyperglycemia, without long-term current use of insulin ([facility]) Take 1 Tablet by mouth 2 times a day with morning and evening meals. 60 Tablet 024 2024 Discontinued documented as of this encounter (statuses as of 10/13/2024) Active Problems Problem Noted Date Diagnosed Date [...] as of this encounter (statuses as of 10/13/2024) Resolved Problems Problem Noted Date Diagnosed Date Resolved Date DM (diabetes mellitus), type 2, uncontrolled, with hyperosmolarity 06/29/2024 07/13/2024 Dislocation closed, finger, subsequent encounter 09/06/2020 07/13/2024 documented as of this encounter (statuses as of 10/13/2024) Immunizations Name Administration Dates Next Due COVID-19 [...] encounter Miscellaneous Notes * Telephone Encounter - Vidhya Montgomery RPh - 10/13/2024 2:18 PM ESTSigned Prescriptions: Disp Refills metFORMIN HCl ER 500 MG Oral Tablet Extend*60 Tab*5 Sig: TAKE 1TABLET BY MOUTH 2 TIMES A DAY WITH MORNING AND EVENING MEALS.Authorizing Provider: TABITHA HALL User: VIDHYA MONTGOMERY documented in this encounter Plan of Treatment Upcoming Encounters Date Type Department Care Team (Late st Contact Info) Description 11/10/2024 10:30 AM EST Office Visit Pharmacy, [facility] [place] [address] [place] [address] [address] Pharmacist1, [facility] [address] [place] [address] 11/10/2024 11:00 AM EST Office [facility] [place] [address] [place] [address] Tabitha Hall MD [address] [place] [address] 12/27/2024 2:20 PM EDT Office Visit Neurology [facility] 200 [facility] [place], [place] [address] Alvin Aragon MD 200 [facility] [place] [address] 01/05/2025 9:40 AM EDT Office Visit General Internal Medicine [facility] [place] 200 [facility] [place], [place] [address] Tabitha Hall MD 200 [facility] [place] [address] 03/23/2025 9:30 AM EDT Nurse Only Rheumatology [place] [address] [facility] [place], [place] [address] Pf, Nurse Rheum [address] [place] [address] [place], [place] [address] 10/10/2025 9:40 AM EST Office Visit Rheumatology [address] [place], [place] [address] Agustin Erickson MD [address] [place] [address] [place], [place] [id number] Health Maintenance Due Date Last Done Comments [...] 01/25/2021, Additional history exists TSH 05/04/2025 05/04/2024, 05/3 10/2023, 06/12/2023, Additional history exists DXA Scan 08/18/2026 08/18/2024, 11/0 11/2021, 07/31/2020 DTap/Tdap Vaccines (3 - Td or Tdap) 06/27/2033 06/27/2023, 06/03/2012 Zoster Vaccines Completed 07/01/2019, 03/06, 10/06/2009 Pneumococcal Vaccine: 50+ Years Completed 06/07/2021, 01/07/2018, 03/21/2015 Influenza Vaccine (FLU shot) Completed , 06/12/2023, 07/24/2021, Additional history exists VITAMIN D LEVEL ONCE IN A LIFETIME-USE SMARTSET# [id number] Completed 06/28/2024, 06/12/2023, 10/24/2021, Additional history exists [...] Documents on File Type Date Recorded Patient Classroom Technology Coach Expl anation ANTOINETTE 06/06/2021 ANTOINETTE REESE ORDERS FOR LIFE-SUSTAINING TREATMENT Care Teams Asbestos Brake Lining Finisher Relationship Specialty Start Date End Date Tabitha Hall MD 200 [facility] [address] PCP - General Internal Medicine 07/27/20 documented as of this encounter
--- OUTSIDE RECORDS SUMMARY | 2024-11-17 01:04 | External Medical Summary | Summary of Care ---
Author Name Unknown Organization [facility] Address [address] [place] [address] Phone [phone] Care Team Providers Care Manager Cardiology Name Role Phone Tabitha Hall MD Primary Care Provider + Reason for Visit * Reason Onset Date Comments Medication Refill 10/08/2024 Encounter Details Date Type Department Care Team (Late st Contact Info) Description 10/08/2024 Telephone Family Medicine [address] [phone] Wilda Jean-Baptiste MD [address] [place] [address] [place] [address] Medication Refill Allergies Active [...] 5 01/12/20 24 Active FreeStyle French 3 [place] DeviceIndications:D M (diabetes mellitus), type 2, uncontrolled, [...] (syndrome of inappropriate ADH production) ([facility]) Take 1 Tablet by mouth [...] long-term current use of insulin ([facility]) Inject 0.75 mg under the [...] long-term current use of insulin ([facility]) Take 1 Tablet by mouth [...] encounter Miscellaneous Notes * Telephone Encounter - Allyson Decker CPhT - 10/11/2024 2:18 PM EST Jackie dejesus calling to check on status of Travoprost. Caller can be reached at [phone]. Thank you, Allyson Decker CPhT Cut Off Operator Scorer II [facility] ([facility]) 10/11/2024,2:18 [...] if this is appropriate and send to [address] if agreeable. Thank you, Ashlee Naranjo CPhT Cut Off Operator Scorer Underwear Hemmer [facility] ([facility]) 10/08/2024,4:20 PM documented in this encounter Plan of Treatment Upcoming Encounters Date Type Department Care Team (Late st Contact Info) Description 11/10/2024 10:30 AM EST Office Visit Pharmacy, [facility] [place] 200 [facility] [place] [address] Pharmacist1, [facility] 200 [facility] [place] [address] 11/10/2024 11:00 AM EST Office Visit General Internal Medicine [facility] [address] [place] [address] Tabitha Hall MD 200 [facility] [place] [address] 12/27/2024 2:20 PM EDT Office Visit Neurology [facility] [address] [facility] [place], [place] [address] Alvin Aragon MD 200 [facility] [place], [place] [address] 01/05/2025 9:40 AM EDT Office Visit General Internal Medicine [facility] [address] [place], [place] [address] Tabitha Hall MD 200 [facility] [place], [place] [address] 03/23/2025 9:30 AM EDT Nurse Only Rheumatology [place] [address] [facility] [place], [place] [address] Pf, Nurse Rheum [address] [place] [address] [place] [address] 10/10/2025 9:40 AM EST Office Visit Rheumatology [address] [place], [place] [address] Agustin Erickson MD [address] [place] [address] [place] [address] Health Maintenance Due Date Last Done Comments [...] D LEVEL ONCE IN A LIFETIME-USE SMARTSET# [id number] Completed 06/28/2024, 06/12/2023, 10/24/2021, Additional history exists [...] Documents on File Type Date Recorded Patient Jig Borer Expl anation POLST 06/06/2021 POLST ISHA HUGH ORDERS FOR LIFE-SUSTAINING TREATMENT Care Teams Manager Cardiology Relationship Specialty Start Date End Date Tabitha Hall MD [address] [place], [place] [address] PCP - General Internal Medicine 07/27/20 documented as of this encounter
--- OUTSIDE RECORDS SUMMARY | 2024-11-17 01:05 | External Medical Summary | Summary of Care ---
Author Name Unknown Organization [facility] Address [address] [place] [address] Phone [phone] Care Team Providers Care Newspaper Photojournalist Name Role Phone Tabitha Hall MD Primary Care Provider + Reason for Visit * Reason Onset Date Comments Hospital Follow-Up 08/18/2024 Encounter Details Date Type Department Care Team (Late st Contact Info) Description 08/18/2024 Telephone General Internal Medicine [facility] [place] 200 [facility] [place] [address] Tabitha Hall MD 200 [place] [address] Hospital Follow-Up Allergies Active Allergy Reactions Criticality Noted Date Comments Ibuprofen 06/11/2016 Alendronate Sodium 08/13/2016 Celecoxib Nausea/vomiting 12/22/2013 Cheese Flavor 08/27/2013 Monosodium Glutamate 08/13/2016 Penicillin G 06/11/2016 Salicylates Unknown 05/17/2021 Sulfa Antibiotics 06/11/2016 documented as of this encounter (statuses as of 09/08/2024) Medications BD Insulin Syringe 25G X 5/8" 1 ML (Insulin Syringe-Needle U-100)Indications:C ontrolled type 2 diabetes mellitus with hyperglycemia, without long-term current use of insulin (HCC),Type 2 diabetes mellitus with hemoglobin A1c goal of less than 8.0% (HCC) Use to inject B-12 injection once a month. 10 Each 1 08/23/20 Active BD SafetyGlide Needle 25G X 1" (Needle (Disp)) Use for vitamin b12 injections monthly. 100 Each 5 01/12/20 Active FreeStyle French 3 [place] DeviceIndications:D M (diabetes mellitus), type 2, uncontrolled, [...] affected area 2 times a day. Active documented as of this encounter (statuses as of 09/08/2024) Active Problems Problem Noted Date Diagnosed Date [...] as of this encounter (statuses as of 09/08/2024) Resolved Problems Problem Noted Date Diagnosed Date Resolved Date DM (diabetes mellitus), type 2, uncontrolled, with hyperosmolarity 06/29/2024 07/13/2024 Dislocation closed, finger, subsequent encounter 09/06/2020 07/13/2024 documented as of this encounter (statuses as of 09/08/2024) Immunizations Name Administration Dates Next Due COVID-19 [...] encounter Miscellaneous Notes * Telephone Encounter - Lindsey Ng OSA - 09/08/2024 9:59 AM EST Pt was seen 08/26 * Telephone Encounter - Tanner Riggins OSA - 08/18/2024 12:48 PM EST No Appointments Available Patient declined appointments?: No What Visit Type is needed? Other - Assisted Appointment If Acute Visit Type is needed, were surrounding clinics offered to patient (Yes/No)? N/A Was patient offered appointments with other available providers (Yes/No)? No, explain Per Iram Dominguez at Facility - patient requesting appointment with Dr. Hall only See Call Details? (Yes or No): Yes documented in this encounter Plan of Treatment Upcoming Encounters Date Type Department Care Team (Late st Contact Info) Description 10/05/2024 9:00 AM EST Office Visit Pharmacy, [facility] [address] [place] [address] [address] [address] Pharmacist1, [facility] [address] [place] [address] 11/10/2024 11:00 AM EST Office Visit General Internal Medicine [facility] [address] [place] [address] Tabitha Hall MD [address] [place] [address] [address] 12/27/2024 2:20 PM EDT Office Visit Neurology [facility] 200 [facility] [place] [address] Alvin [place]agon MD 200 [facility] [place] [address] 01/05/2025 9:40 AM EDT Office Visit General Internal Medicine [facility] 200 [facility] [place] [address] Tabitha Hall MD 200 [facility] [place], [place] [address] 08/23/2025 9:40 AM EST Office Visit Rheumatology [place] [address] [address] [employer] [place], [place] [address] Agustin Erickson MD [facility] [employer] [place], [place] [address] Health Maintenance Due Date Last Done Comments [...] D LEVEL ONCE IN A LIFETIME-USE SMARTSET# [id number] Completed 06/28/2024, 06/12/2023, 10/24/2021, Additional history exists [...] Documents on File Type Date Recorded Patient Dry Primer Powder Blender Expl anation POL 06/06/2021 ANTOINETTE REESE ORDERS FOR LIFE-SUSTAINING TREATMENT Care Teams Newspaper Photojournalist Relationship Specialty Start Date End Date Tabitha Hall MD [address] [place] [address] PCP - General Internal Medicine 07/27/20 documented as of this encounter
--- OUTSIDE RECORDS SUMMARY | 2024-11-17 01:05 | External Medical Summary | Summary of Care ---
Author Name Unknown Organization [facility] Address [address] [place] [address] Phone [phone] Care Team Providers Care Child Psychology Teacher Name Role Phone Tabitha Hall MD Primary Care Provider + Reason for Visit * Reason Comments eRx-Medication Refill Encounter Details Date Type Department Care Team (Late st Contact Info) Description 09/01/2024 Refill General Internal Medicine [facility] [address] [facility] [place] [address] Tabitha Hall MD [address] [place] [address] Age-related osteoporosis with current pathological fracture with routine healing, subsequent encounter; Generalized OA; Recurrent major depressive disorder, in partial remission ([facility]); Hyperlipidemia with target LDL less than 100; Hyperlipidemia, unspecified hyperlipidemia type; SIADH (syndrome of inappropriate ADH production) ([facility]); Glaucoma of both eyes, unspecified glaucoma type; Controlled type 2 diabetes mellitus with hyperglycemia, without long-term current use of insulin ([facility]) Allergies Active Allergy Reactions Criticality Noted Date Comments Ibuprofen 06/11/2016 Alendronate Sodium 08/13/2016 Celecoxib Nausea/vomiting 12/22/2013 Cheese Flavor 08/27/2013 Monosodium Glutamate 08/13/2016 Penicillin G 06/11/2016 Salicylates Unknown 05/17/2021 Sulfa Antibiotics 06/11/2016 documented as of this encounter (statuses as of 09/03/2024) Medications BD Insulin Syringe 25G X 5/8" [...] Each 01/12/20 24 Active FreeStyle French 3 Aurora DeviceIndications:D M (diabetes mellitus), type 2, uncontrolled, [...] hyperglycemia, without long-term current use of insulin ([facility]) Take 1 Tablet by mouth 2 [...] TabletIndications:S IADH (syndrome of inappropriate ADH production) ([facility]) Take 1 Tablet by mouth in the morning. 30 Tablet 08/18/20 24 Active Travoprost (RENEA Free) 0.004 % Ophthalmic Solution (Travatan Z)Indications:Glauc charlee of both eyes, unspecified glaucoma type Instill 1 Drop into both eyes at bedtime. 1 daily 2.5 mL 08/18/20 Active Trulicity 0.75 MG/0.5ML Subcutaneous Solution Auto-injector [...] as of this encounter (statuses as of 09/03/2024) Active Problems Problem Noted Date Diagnosed Date [...] as of this encounter (statuses as of 09/03/2024) Resolved Problems Problem Noted Date Diagnosed Date Resolved Date DM (diabetes mellitus), type 2, uncontrolled, with hyperosmolarity 06/29/2024 07/13/2024 Dislocation closed, finger, subsequent encounter 09/06/2020 07/13/2024 documented as of this encounter (statuses as of 09/03/2024) Immunizations Name Administration Dates Next Due COVID-19 [...] encounter Miscellaneous Notes * Telephone Encounter - Annabella Simental, [facility] - 09/03/2024 12:57 PM EST Refused Prescriptions: Disp Refills Vitamin C 500 MG Oral Tablet (Ascorbic Aci*30 Tab*11 Sig: GIVE 1 TAB BY MOUTH EVERY DAY (SUPPLEMENT)Refused By: ANNABELLA SIMENTAL for Refusal: Not indicated Oyster Shell Calcium w/D 500-5 MG-MCG Oral*30 Tab*11 Sig: GIVE 1 TAB BY MOUTH EVERY DAY (SUPPLEMENT )Refused By: ANNABELLA SIMENTAL for Refusal: Not indicated Vitamin D3 50 MCG (2000 UT) Oral Jocfyl26 Tab*11 Sig: GIVE 1 TAB BY MOUTH EVERY DAY (SUPPLEMENT)Refused By: ANNABELLA SIMENTAL for Refusal: Not indicated Coenzyme Q-10 100 MG Oral Capsule 30 Cap*11 Sig: GIVE 1 CAP BY MOUTH EVERY DAY (SUPPLEMENT)Refused By: ANNABELLA SIMENTAL for Refusal: Not indicated Bisacodyl 10 MG Rectal Suppository (Dulcol*30 Sup*11 Sig: INSERT 1-SUPPOSITORY RECTALLY NEEDED EVERY DAY (CONSTIPATION)Refused By: ANNABELLA SIMENTAL for Refusal: Not indicated DULoxetine HCl 30 MG Oral Capsule Delayed *30 Cap*11 Sig: GIVE 1 CAP BY MOUTH EVERY DAY (DEPRESSION) TAKE ALONG WITH 60MG =90MG TOTAL DOSERefused By: ANNABELLA SIMENTAL for Refusal: Not indicated DULoxetine HCl 60 MG Oral Capsule Delayed *30 Cap*11 Sig: GIVE 1 CAP BY MOUTH EVERY DAY (DEPRESSION) TAKE ALONG WITH 30MG TO =90MG TOTALDOSERefused By: ANNABELLA SIMENTAL for Refusal: Not indicated Hydrocortisone 1 % External Cream 453.6 g11 Sig: APPLY TO AFFECTED AREAS TO BILATERAL EXTREMITIES EVERY 12 HOURS NEEDED (ITCH)Refused By: ANNABELLA SIMENTAL for Refusal: Not indicated Magnesium Oxide -Mg Supplement 250 MG Oral*13 Tab*11 Sig: GIVE 1 TAB BY MOUTH EVERY FRIDAY , EVERY FRIDAY , EVERY FRIDAY (SUPPLEMENT)Refused By: ANNABELLA SIMENTAL for Refusal: Not indicated Milk of Magnesia 400 MG/5ML Oral Suspensio*473 mL 11 Sig: GIVE 30ML BY MOUTH EVERY DAY NEEDED (CONSTIPAITON)Refused By: ANNABELLA SIMENTAL for Re fusal: Not indicated Rosuvastatin Calcium 5 MG Oral Tablet (Cre*13 Tab*11 Sig: GIVE 1 TAB BY MOUTH EVERY FRIDAY , EVERY FRIDAY , EVERY FRIDAY (HLD)Refused By: ANNABELLA SIMENTAL for Refusal: Not indicated SodiumChloride 1 GM Oral Tablet 30 Tab*11 Sig: GIVE 1 TAB BY MOUTH EVERY DAY (ANTIDIURETIC HORMONE)Refused By: ANNABELLA SIMENTAL for Refusal: Not indicated Travoprost (RENEA Free) 0.004 % Ophthalmic S*2.5 mL 11 Sig: INSTILL 1-DROP BOTH EYES AT BEDTIME (GLAUCOMA)Refused By: ANNABELLA SIMENTALfor Refusal: Not indicated Trulicity 0.75 MG/0.5ML Subcutaneous Solut*2 mL 11 Sig: INJECT 0.75MG (0.5ML) SUBQ EVERY FRIDAY (DM)Refused By: ANNABELLA SIMENTAL for Refusal: Not indicated Acetaminophen 325 MGOral Tablet (Tylenol) 180 Ta*11 Sig: GIVE 2 TABS BY MOUTH THREE TIMES DAILY (PAIN)Refused By: ANNABELLA SIMENTAL for Refusal: Not indicated Vitamin B-12 100 MCG Oral Tablet (vitamin *30 Tab*11Sig: GIVE 1 TAB BY MOUTH EVERY DAY (SUPPLEMENT)Refused By: ANNABELLA SIMENTAL for Refusal: Not indicated Gentle Iron 28-60-0.008-0.4 MG Oral Capsul*13 Cap*11 Sig: GIVE 1 CAP BY MOUTH THREE TIMES WEEKLY (FRIDAY,FRIDAY,FRIDAY) FOR SUPPLEMENTRefused By: ANNABELLA SIMENTAL for Refusal: Not indicated metFORMIN HCl ER 500 MG Oral Tablet Extend*60 Tab*11 Sig: GIVE 1 TAB BY MOUTH TWICE DAILY WITH MEALS (DM)Refused By: ANNABELLA SIMENTALason for Refusal: Not indicated * Telephone Encounter - Annabella Simental cynthia - 09/03/2024 12:53 PM EST Medications sent to [facility] while pt was at SNF. Pt discharged to home 08/24/24. Thanks, Annabella Simental PharmD Clinical Pharmacist [facility] [phone] 09/03/2024 12:57 PM documented in this encounter Plan of Treatment Upcoming Encounters Date Type Department Care Team (Late st Contact Info) Description 10/05/2024 9:00 AM EST Office Visit Pharmacy, [facility] [place] [address] [place] [address] Pharmacist1, [facility] [address] [place], [place] [address] 11/10/2024 11:00 AM EST Office Visit General Internal Medicine [facility] [place] [address] [place], [place] [address] Tabitha Hall MD [address] [place], [place] [address] 12/27/2024 2:20 PM EDT Office Visit Neurology [facility] [place] [address] [place], [place] [address] Alvin Aragon MD [address] [place] [address] 01/05/2025 9:40 AM EDT Office Visit General Internal Medicine [facility] [address] [place], [place] [address] Tabitha Hall MD [address] [facility] [place] [address] 08/23/2025 9:40 AM EST Office Visit Rheumatology [facility] [address] [place] [address] Agustin Erickson MD [address] [place], [place] [address] Health Maintenance Due Date Last Done Comments [...] D LEVEL ONCE IN A LIFETIME-USE SMARTSET# [id number] Completed 06/28/2024, 06/12/2023, 10/24/2021, Additional history exists [...] encounter Generalized OA Generalized osteoarthrosis, unspecified site Recurrent major depressive disorder, in partial remission ([facility]) Hyperlipidemia, unspecified hyperlipidemia type SIADH (syndrome of inappropriate ADH production) ([facility]) Other disorders of neurohypophysis Glaucoma of both eyes, unspecified glaucoma type Controlled type 2 diabetes mellitus with hyperglycemia, without long-term current use of insulin ([facility]) documented in this encounter Advance Directives Documents on File Type Date Recorded Patient Formula Bottler Expl anation POLST 06/06/2021 POLST LIANNE REESE ORDERS FOR LIFE-SUSTAINING TREATMENT Care Teams Child Psychology Teacher Relationship Specialty Start Date End Date Tabitha Hall MD [address] [place] [address] PCP - General Internal Medicine 07/27/20 documented as of this encounter
--- OUTSIDE RECORDS SUMMARY | 2024-11-17 01:05 | External Medical Summary | Summary of Care ---
Author Name Unknown Organization [facility] Address [address] [place] [address] Phone [phone] Care Team Providers Care Car Body Designer Name Role Phone Tabitha Hall MD Primary Care Provider + Reason for Visit * Reason Onset Date Comments Precert Approved 08/18/2024 Prolia - waitin g for oop cost Encounter Details Date Type Department Care Team (Late st Contact Info) Description 08/18/2024 Telephone Rheumat[address] [place] [address] Franko Erickson MD [address] [place], [place] [address] [address] Precert Approved (Prolia - waiting for oop... Allergies Active Allergy Reactions Criticality Noted Date Comments Ibuprofen 06/11/2016 Alendronate Sodium 08/13/2016 Celecoxib Nausea/vomiting 12/22/2013 Cheese Flavor 08/27/2013 Monosodium Glutamate 08/13/2016 Penicillin G 06/11/2016 Salicylates Unknown 05/17/2021 Sulfa Antibiotics 06/11/2016 documented as of this encounter (statuses as of 09/20/2024) Medications BD Insulin Syringe 25G X 5/8" [...] 5 01/12/20 24 Active FreeStyle French 3 [place] DeviceIndications:D M (diabetes mellitus), type 2, uncontrolled, with hyperosmolarity ([facility]) Use as directed. 1 Each 03/29/20 Active FreeStyle French 3 Plus SensorIndications:D M (diabetes mellitus), type 2, uncontrolled, with hyperosmolarity ([facility]) Change sensor every 15 days. 2 Each 11 07/29/20 Active Tylenol 325 MG Oral Capsule (Acetaminophen) Take by mouth. Active Magnesium Hydroxide 400 MG/5ML Oral Suspension (Mom) Take by mouth daily as needed for Constipation. Active Hydrocortisone 1 % External Cream Apply topically to affected area 2 times a day. Active Cyanocobalamin 1000 MCG/ML Injection Solution (Cyanocobalamin)Ind ications:B12 deficiency INJECT 1000MCG DIRECTED EVERY 30 DAYS 1 mL 12/25/19 24 024 Discontin ued(Refil l) documented as of this encounter (statuses as of 09/20/2024) Active Problems Problem Noted Date Diagnosed Date [...] as of this encounter (statuses as of 09/20/2024) Resolved Problems Problem Noted Date Diagnosed Date Resolved Date DM (diabetes mellitus), type 2, uncontrolled, with hyperosmolarity 06/29/2024 07/13/2024 Dislocation closed, finger, subsequent encounter 09/06/2020 07/13/2024 documented as of this encounter (statuses as of 09/20/2024) Immunizations Name Administration Dates Next Due COVID-19 [...] encounter Miscellaneous Notes * Addendum Note - Janene Malcolm LPN - 09/20/2024 4:27 PM ESTAddended by: JANENE MALCOLM on: 09/20/2024 04:27 PM Modules accepted: Orders * Telephone Encounter - Janene Malcolm LPN - 09/20/2024 4:26 PM EST Chart reviewed and labs noted to be within normal limits. Patient has been seen within the last 12 months by a Rheumatology provider. Prolia authorization approved and updated in referral. Last injection has been > 6 months and 1 day. CAM orders pended for signature. Thank you! * Telephone Encounter - Valerie Ramírez OSA - 09/15/2024 3:56 PM EST Scheduled. * Telephone Encounter - Lindsey Malcolm LPN - 09/15/2024 1:58 PM EST Please call and schedule this patient for an appointment with the [facility] Nurse clinic in for Prolia, per referral message no auth obtained and we were advised pt would have no oop. * Telephone Encounter - Janene Malcolm LPN - 08/27/2024 9:15 AM EST Drug name: Prolia HCPCS code(s): J0897 Authorization Require: [id number] Valid auth start date: 08 20 2024 Valid auth end date: 08 19 2025 [facility] Billing Units Approved: Diagnosis Code(s): M81.0 Medical Necessity: YES Clinic Stock: YES Is this insurance In Network or Out of Network?: IN Network Insurance Verified: [employer] Reference #: NA MAC review needed? YES [facility] * Telephone Encounter - Emely Frazier OSA - 08/26/2024 9:42 AM EST APPROVED SEE REFERRAL MESSAGE * Telephone Encounter - Emely Frazier OSA - 08/24/2024 7:12 AM EST Per Predicatal this request is still pending * Telephone Encounter - Emely Frazier OSA - 08/20/2024 12:42 PM EST [facility] Authorization Submission Submission Information: Medication: PROLIA Portal used: Availity Insurance: K Authorization #/Kent: [id number] * Telephone Encounter - Lindsey Malcolm LPN - 08/18/2024 3:17 PM EST Please auth for PF * Telephone Encounter - Franko Erickson MD - 08/18/2024 11:27 AM EST Can we look into coverage for Prolia for osteoporosis. In the past use Reclast but contraindicated based on age adjusted GFR documented in this encounter Plan of Treatment Upcoming Encounters Date Type Department Care Team (Late st Contact Info) Description 09/21/2024 9:30 AM EST Nurse Only Rheumatology [facility] [address] [place] [address] Pf, Nurse Rheum [facility] [place] [address] 11/10/2024 10:30 AM EST Office Visit Pharmacy, [facility] [address] [place] [address] Pharmacist1, [facility] [address] [place] [address] 11/10/2024 11:00 AM EST Office Visit General Internal Medicine [facility] [address] [place], [place] [address] Tabitha Hall MD [address] [facility] [address] [place], [place] [address] 12/27/2024 2:20 PM EDT Office Visit Neurology [facility] [address] [place], [place] [address] Alvin Aragon MD [address] [facility] [place], [place] [id number] 01/05/2025 9:40 AM EDT Office Visit General Internal Medicine [facility] [address] [place] [address] Tabitha Hall MD [address] [place] [address] 08/23/2025 9:40 AM EST Office Visit Rheumatology [facility] [address] [place], [place] [address] Franko Erickson MD [address] [place] [address] Health Maintenance Due Date Last Done Comments [...] D LEVEL ONCE IN A LIFETIME-USE SMARTSET# [id number] Completed 06/28/2024, 06/12/2023, 10/24/2021, Additional history exists [...] Documents on File Type Date Recorded 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
--- OUTSIDE RECORDS SUMMARY | 2024-11-17 01:05 | External Medical Summary | Summary of Care ---
Author Name Unknown Organization [facility] Address [address] [place] [address] Phone [phone] Care Team Providers Care Punch Molder Name Role Phone Tabitha Hall MD Primary Care Provider + Reason for Referral * Medication Prior Authorization - Pending Review Specialty Diagnoses / Procedures Referred By Michael t Referred To Contact Diagnoses B12 deficiency Tabitha Hall MD [address] [place] [address] [address] Phone: tel: fax: Referral ID Status Reason Start Date Expiration Date V isits Requested Visits Authorized [id number] Pending Review [id number] Reason for Visit * Reason Onset Date Comments Hospital Follow-Up Hospital Follow-Up 08/26/2024 Encounter Details Date Type Department Care Team (Latest Contact Info) Description 08/26/2024 2:20 PM EST Office Visit General Internal Medicine [facility] [address] [id number] Tabitha Hall MD [address] [id number] Senile osteoporosis*; Acquired hypothyroidism; Controlled type 2 diabetes mellitus with hyperglycemia, without long-term current use of insulin (HCC); SIADH (syndrome of inappropriate ADH production) ([facility]); Nondisplaced fracture of left tibial tuberosity, subsequent encounter for closed fracture with routine healing; Open-angle glaucoma, unspecified glaucoma stage, unspecified laterality, unspecified open-angle glaucoma type; Recurrent major depressive disorder, in partial remission ([facility]); Cognitive impairment; Degeneration of intervertebral disc of lumbosacral region with discogenic back pain and lower extremity pain; Generalized OA; Major depressive disorder in partial remission, unspecified whether recurrent ([facility]); Multiple falls; Balance disorder; Hyperlipidemia with target LDL less than 100; B12 deficiency; Hospital discharge follow-up Allergies Active Allergy Reactions Criticality Noted Date Comments Ibuprofen 06/11/2016 Alendronate Sodium 08/13/2016 Celecoxib Nausea/vomiting 12/22/2013 Cheese Flavor 08/27/2013 Monosodium Glutamate 08/13/2016 Penicillin G 06/11/2016 Salicylates Unknown 05/17/2021 Sulfa Antibiotics 06/11/2016 documented as of this encounter (statuses as of 08/26/2024) Medications BD Insulin Syringe 25G X 5/8" 1 ML (Insulin Syringe-Needle U-100)Indications:C ontrolled type 2 diabetes mellitus with hyperglycemia, without long-term current use of insulin ([facility]),Type 2 diabetes mellitus with hemoglobin A1c goal of less than 8.0% ([facility]) Use to inject B-12 injection once a month. 10 Each 1 08/23/20 22 Active BD SafetyGlide Needle 25G X 1" (Needle (Disp)) Use for vitamin b12 injections monthly. 100 Each 5 01/12/20 24 Active FreeStyle French 3 [place] DeviceIndications:D M (diabetes mellitus), type 2, uncontrolled, with hyperosmolarity (HCC) Use as directed. 1 Each 03/29/20 24 Active FreeStyle French 3 Plus SensorIndications:D M (diabetes mellitus), type 2, uncontrolled, with hyperosmolarity (HCC) Change sensor every 15 days. 2 Each 07/29/20 24 Active Vitamin C 500 MG Oral Tablet (Ascorbic Acid) Take 1 Tablet by mouth in the morning. 30 Tablet 11/13/20 24 Active Calcium Carbonate-Vitamin D 500-5 MG-MCG [...] once a week. 2 mL 08/18/20 24 Active Acetaminophen 325 MG [...] 30 days. 1 mL 08/26/20 24 Active Cyanocobalamin 1000 MCG/ML Injection Solution (Cyanocobalamin)Ind ications:B12 deficiency INJECT 1000MCG DIRECTED EVERY 30 DAYS 1 mL 12/25/19 24 11/21/2 024 Discontin ued(Refil l) documented as of this encounter (statuses as of 08/26/2024) Active Problems Problem Noted Date Diagnosed Date [...] as of this encounter (statuses as of 08/26/2024) Resolved Problems Problem Noted Date Diagnosed Date Resolved Date DM (diabetes mellitus), type 2, uncontrolled, with hyperosmolarity 06/29/2024 07/13/2024 Dislocation closed, finger, subsequent encounter 09/06/2020 07/13/2024 documented as of this encounter (statuses as of 08/26/2024) Immunizations Name Administration Dates Next Due COVID-19 [...] Sign Reading Time Taken Comments Blood Pressure 138/82 08/26/2024 2:22 PM EST Pulse 98 08/26/2024 2:22 PM EST Temperature 36.3 C (97.3 F) 08/26/2024 2:[address] Respiratory Rate - - Oxygen Saturation 99% 08/26/2024 2:22 PM EST Inhaled Oxygen Concentration - - Weight - - Height - - Body Mass Index - - documented in this encounter Progress Notes * Tabitha Hall MD - 08/26/2024 2:27 PM EST HPI: Lilibeth Kong is a 84 year old female with a history of osteoporosis, multiple falls, type 2 diabetes mellitus, osteoarthritis, hypothyroidism, chronic lower back pain secondary to compression fractures, degenerative disc disease, history of glaucoma, history of dementia, follows with a neurologist, was advised not to drive anymore, history of anxiety, depression , history of hyperlipidemia, SIADH with chronic hyponatremia, on sodium chloride 1 g oral tablet daily, who presents with: Chief Complaint Patient presents with Hospital Follow-Up Pt is here for the hospital follow up. Chart reviewed from the hospital including admission note, Hand P, consult notes, labs, EKG, imaging and discharge note including discharge meds. Patient states she is feeling better since went back home. Pt was admitted to the hospital on 06/30/24 and was discharged on 07/10/24 and was transferred to inpatient rehab at [facility]. PT, OT helped her and pt is doing better than before. Had around 2 to 3 falls while in rehab, no new fractures. Recently transferred to [facility]. Reviewed the chart from hospital, [facility] notes from jem.. Admission Diagnosis : s/p multiple falls. Pt has been followed up by case assistant and specialists. Per admitting note dated 07/13/24: "Recently admitted to [facility] on 06/30/24 because of fall with left patellar fracture, left tibial tuberosity fracture, and left rib fracture and was transferred here and admitted on 07/09/2024. Patient of Dr. Tabitha Hall with PMH of type 2 diabetes mellitus, SIADH, generalized osteoarthritis, glaucoma, depression, osteoporosis, and cognitive impairment who presented to the ED after a fall when tripping on a step going from one room to another and landed on her left side. The fall occurred 2 days prior to presenting to the ED. She was having left sided neck pain, left rib pain, and left knee pain after the fall. In the ED, CBC was normal other than mildly low hemoglobin of 11.9. CMP was normal other than glucose of 143 an sodium pf 134. X-ray of the left knee showed a questionable/indeterminate cortical lucency involving the anterior cortex of the proximal tibial metadiaphysis. Cervical spine CT and head CT were negative for acute changes. CT of the chest and thoracic spine showed an acute minimally displaced left posterolateral rib fracture and trace left pleural effusion. CT of the abdomen and pelvisshowed 30% compression of L2 vertebral body that had progressed from [address] of the left knee confirmed subtle acute nondisplaced fracture involving the tibial tuberosity without fracture extension and an acute nondisplaced intraarticular fracture of the mid patella and lateral patellar facet. Patient was admitted and seen by orthopedics, who recommended nonoperative management. She was placed in a left knee immobilizer and is able to weight bear as tolerated. She was seen by orthopedic spine for L2 compression fracture, which was felt to be chronic and no specific treatment needed. Her pain was controlled with Tylenol. No medication changes were made. While at [facility] she reported an unwitnessed fall on 08/16/2024 with the pain off the groin, lower back and left SI area, right shoulder. X-ray imaging of this areas indicated no acute fracture and old finding which were present on prior imaging. She has additional outpatient pelvic x-ray on 08/18/2024 which was negative for fracture. Patient was re-evaluated by Physical therapy and there was no functional decline related to above-mentioned event. Currently patient is a walker. Patient was seenby Dr. Barnett on 08/22/2024 and no longer required to wear knee immobilizer. Patient Active Problem List Diagnosis Senile osteoporosis Diabetes type 2, controlled ([facility]) Generalized OA Hypothyroidism Glaucoma DDD (degenerative disc disease), lumbosacral DDD (degenerative disc disease), cervical Controlled type 2 diabetes mellitus with hyperglycemia, without long-term current use of insulin ([facility]) SIADH (syndrome of inappropriate ADH production) ([facility]) Recurrent major depressive disorder, in partial remission ([facility]) Cognitive impairment Closed fracture of rib of left side with routine healing Nondisplaced fracture of left tibial tuberosity, subsequent encounter for closed fracture with routine healing Closed nondisplaced fracture of left patella with routine healing Current Outpatient Medications Medication Sig Dispense Refill Cyanocobalamin 1000 MCG/ML Injection Solution (Cyanocobalamin) INJECT 1000MCG DIRECTED EVERY 30 DAYS 1 mL 11 Calcium Carbonate-Vitamin D 500-5 MG-MCG Oral Tablet Take 1 Tablet by mouth in the morning. 30 Tablet 0 Cholecalciferol 50 MCG (1999 UT) Oral Tablet Take 1 Tablet by mouth in the morning. 1 daily. 30 Tablet 0 CoQ10 100 MG Oral Capsule Take 1 Capsule by mouth in the morning. 30 Capsule 0 Diclofenac Sodium 1 % External Gel (Voltaren) Apply topically to affected area 4 times a day as needed for Other (2 gm to affected joint up to 4 x daily as needed). (Patient taking differently: Applytopically to affected area 3 times a day. Apply 2 gm to right shoulder 3x daily and 4 gm to low back 3x daily) 350 g 0 DULoxetine HCl 60 MG Oral Capsule Delayed Release Particles (Cymbalta) TAKE ONE CAPSULE BY MOUTH EVERY MORNING along with duloxetine 30 mg capsule ( total dose 90mg) ,DO NOT CUT, CRUSH, OR CHEW. Takes in evening 30 Capsule 0 DULoxetine HCl 30 MG Oral Capsule Delayed Release Particles (Cymbalta) TAKE ONE CAPSULE BY MOUTH EVERY MORNING along with duloxetine 60 mg capsule ( total dose 90mg) ,DO NOT CUT, CRUSH, OR CHEW. Takes in evening 30 Capsule 0 Iron Glycinate 29 MG Oral Capsule Take 1 Capsule by mouth once a day on Friday, , and Friday only. 12 Capsule 0 Levothyroxine Sodium 25 MCG Oral Tablet (Levoxyl) Take by mouth: 2 pills once daily Friday to and take one pill Friday to Friday.(at least 30 min prior to breakfast or other meds) 45 Tablet 0 Magnesium 250 MG Oral Tablet Take 1 Tablet by mouth once a day on Friday, Friday, and Friday only. 12 Tablet 0 metFORMIN HCl ER 500 MG Oral Tablet Extended Release 24 Hour (Glucophage XR) Take 1 Tablet by mouth2 times a day with morning and evening meals. 60 Tablet 0 Rosuvastatin Calcium 5 MG Oral Tablet (Crestor) Take 1 Tablet by mouth once a day on Friday, Friday, and Friday only. 12 Tablet 0 Sodium Chloride 1 GM Oral Tablet Take 1 Tablet by mouth in the morning. 30 Tablet 0 Acetaminophen 325 MG Oral Tablet (Tylenol) Take 2 Tablets by mouth 3 times a day. 180 Tablet 0 Hydrocortisone 1 % External Cream Apply topically to affected area 2 times a day. BD Insulin Syringe 25G X 5/8" 1 ML (Insulin Syringe-Needle U-100) Use to inject B-12 injection oncea month. 10 Each 1 BD SafetyGlide Needle 25G X 1" (Needle (Disp)) Use for vitamin b12 injections monthly. 100 Each 5 FreeStyle French 3 [place] Device Use as directed. 1 Each 0 FreeStyle French 3 Plus Sensor Change sensor every 15 days. 2 Each 11 Vitamin C 500 MG Oral Tablet (Ascorbic Acid) Take 1 Tablet by mouth in the morning. 30 Tablet 0 Travoprost (RENEA Free) 0.004 % Ophthalmic Solution (Travatan Z) Instill 1 Drop into both eyes at bedtime. 1 daily 2.5 mL 0 Trulicity 0.75 MG/0.5ML Subcutaneous Solution Auto-injector (Dulaglutide) Inject 0.75 mg under the skin once a week. 2 mL 0 Vitamin B12 100 MCG Oral Tablet Take 1 Tablet by mouth in the morning. 30 Tablet 0 Tylenol 325 MG Oral Capsule (Acetaminophen) Take by mouth. Magnesium Hydroxide 400 MG/5ML Oral Suspension (Mom) Take by mouth daily as needed for Constipation. No current facility-administered medications for this visit. [...] negative except as per hpi. OBJECTIVE: BP 138/82 (BP Site: Left Arm, BP Position: Sitting, BP Cuff Size: Regular) | Pulse 98 | Temp 97.3 F (36.3 C) (Tympanic) | SpO2 99% PHYSICAL EXAM: HEENT: PERRLA, EOMI, anicteric sclera, [...] stable No focal weakness ASSESSMENT AND PLAN: Senile osteoporosis (Primary) Acquired hypothyroidism Controlled type 2 diabetes mellitus with hyperglycemia, without long-term current use of insulin (HCC) SIADH (syndrome of inappropriate ADH production) (HCC) Nondisplaced fracture of left tibial tuberosity, subsequent encounter for closed fracture with routine healing Open-angle glaucoma, unspecified glaucoma stage, unspecified laterality, unspecified open-angle glaucoma type Recurrent major depressive disorder, in partial remission (HCC) Cognitive impairment Degeneration of intervertebral disc of lumbosacral region with discogenic back pain and lower extremity pain Generalized OA Major depressive disorder in partial remission, unspecified whether recurrent ([facility]) Multiple falls Balance disorder Hyperlipidemia with target LDL less than 100 Tabitha Hall MD documented in this encounter Nursing Notes * Joleen Sandoval CMA - 08/26/2024 2:11 PM EST Patient presents today for discharge follow up. She was seen at [facility] on 06/30/24 due to a fall, found to have a closed tibial fracture, closed rib fracture, and compression fracture of lumbar spine. She was discharged to [place] [place] on 07/09/24. Patient still having issues with balance, forgets to use her walker when needed. She states she is having significant lower back pain. documented in this encounter Plan of Treatment Upcoming Encounters Date Type Department Care Team (Late st Contact Info) Description 10/05/2024 9:00 AM EST Office Visit Pharmacy, [facility] [place] [address] [place], [place] [phone] Pharmacist1, [facility] [address] [place] [address] 11/10/2024 11:00 AM EST Office Visit General Internal Medicine [facility] [address] [place], [place] [address] Tabitha Hall MD [address] [facility] [place] [place] [address] 12/27/2024 2:20 PM EDT Office Visit Neurology [facility] [address] [facility] [place] [address] Alvin Aragon MD [address] [facility] [place] [address] 01/05/2025 9:40 AM EDT Office Visit General Internal Medicine [facility] [address] [facility] [place] [address] Tabitha Hall MD [address] [facility] [place] [address] 08/23/2025 9:40 AM EST Office Visit Rheumatology [place] [phone] [place] [address] Agustin Erickson MD [address] [place] [address] Health Maintenance Due Date Last Done Comments Adult Wellness Visit 02/03/2004 Depression Monitoring 01/15/2024 01/14/2023 COVID-19 Vaccine ( season) 2024 06/25/2024, 07/22/2023, 02/21/2023, Additional history exists Diabetic Foot Exam 09/28/2024 01/14/2023, 0 06/07/2021, 07/27/2020 Postponed from 01/15/2024 (Contraindicated Today) HbA1c 12/26/2024 06/28/2024, 0510/2023, 06/12/2023, Additional history exists Albumin/Creatinine Ratio 03/05/2025 [...] D LEVEL ONCE IN A LIFETIME-USE SMARTSET# [id number] Completed 06/28/2024, 06/12/2023, 10/24/2021, Additional history exists [...] encounter Visit Diagnoses Diagnosis Senile osteoporosis- Primary Acquired hypothyroidism Unspecified hypothyroidism Controlled type 2 diabetes mellitus with hyperglycemia, without long-term current use of insulin (HCC) SIADH (syndrome of inappropriate ADH production) (HCC) Other disorders of neurohypophysis Nondisplaced fracture of left tibial tuberosity, subsequent encounter for closed fracture with routine healing Open-angle glaucoma, unspecified glaucoma stage, unspecified laterality, unspecified open-angle glaucoma type Recurrent major depressive disorder, in partial remission (HCC) Cognitive impairment Unspecified persistent mental disorders due to conditions classified elsewhere Degeneration of intervertebral disc of lumbosacral region with discogenic back pain and lower extremity pain Generalized OA Generalized osteoarthrosis, unspecified site Major depressive disorder in partial remission, unspecified whether recurrent (HCC) Multiple falls Personal history of fall Balance disorder Other symptoms involving nervous and musculoskeletal systems Hyperlipidemia with target LDL less than 100 Other and unspecified hyperlipidemia B12 deficiency Other B-complex deficiencies Hospital discharge follow-up Other follow-up examination documented in this encounter Advance Directives Documents on File Type Date Recorded Patient Pharmaceutical Scientist Expl anation POLST 06/06/2021 ANTOINETTE REESE ORDERS FOR LIFE-SUSTAINING TREATMENT Care Teams Punch Molder Relationship Specialty Start Date End Date Tabitha Hall MD [address] [place] [address], [place] [address] PCP - General Internal Medicine 07/27/20 documented as of this encounter
--- OUTSIDE RECORDS SUMMARY | 2024-11-17 01:05 | External Medical Summary | Summary of Care ---
Author Name Unknown Organization [facility] Address [address] [place] [address] Phone [phone] Care Team Providers Care Veneer Stock Layer Name Role Phone Tabitha Hall MD Primary Care Provider + Reason for Visit * Reason Onset Date Comments Precert Approved 08/18/2024 Prolia - waitin g for oop cost Encounter Details Date Type Department Care Team (Late st Contact Info) Description 08/18/2024 Telephone Rheumatology [address] [place] [address] Franko Romano MD [address] [place], [place] [address] [address] Precert Approved (Prolia - waiting for oop... [...] 5 01/12/20 24 Active FreeStyle French 3 [place] DeviceIndications:D M (diabetes mellitus), type 2, uncontrolled, with hyperosmolarity (HCC) Use as directed. 1 Each 03/29/20 Active FreeStyle French 3 Plus SensorIndications:D M (diabetes mellitus), type 2, uncontrolled, with hyperosmolarity (HCC) Change sensor every 15 days. 2 Each 11 07/29/20 24 Active Tylenol 325 MG Oral Capsule (Acetaminophen) Take by mouth. Active Magnesium Hydroxide 400 MG/5ML Oral Suspension (Mom) Take by mouth daily as needed for Constipation. Active Hydrocortisone 1 % External Cream Apply topically to affected area 2 times a day. Active Cyanocobalamin 1000 MCG/ML Injection Solution (Cyanocobalamin)Ind ications:B12 deficiency INJECT 1000MCG DIRECTED EVERY 30 DAYS 1 mL 11 12/25/19 24 024 Discontin ued(Refil l) Hospital, Clinic, or Other Facility Administered Medication Ordered Dose Route Frequency Start Date End Date Status Denosumab (Prolia) subcut inj 60 mgIndications:Senile osteoporosis 60 mg SC ONCE 09/21/2024 09/21/2024 Active documented as of this encounter (statuses [...] encounter Miscellaneous Notes * Addendum Note - Franko Romano MD - 09/20/2024 4:29 PM ESTAddended by: FRANKO ROMANO on: 09/20/2024 04:29 PM Modules accepted: Orders * Telephone Encounter - Franko Romano MD - 09/20/2024 4:29 PM EST signed * Addendum Note - Janene Herrmann LPN - 09/20/2024 4:27 PM ESTAddended by: JANENE HERRMANN on: 09/20/2024 04:27 PM Modules accepted: Orders * Telephone Encounter - Janene Herrmann LPN - 09/20/2024 4:26 PM EST Chart [...] EST Scheduled. * Telephone Encounter - Lindsey Herrmann LPN - 09/15/2024 1:58 PM EST Please call and schedule this patient for an appointment with the Rheum Nurse clinic in for Prolia, per referral message no auth obtained and we were advised pt would have no oop. * Telephone Encounter - Janene Herrmann LPN - 08/27/2024 9:15 AM EST Drug name: Prolia HCPCS code(s): J0897 Authorization Require: [id number] Valid auth start date: 08 20 2024 Valid auth end date: 08 19 2025 Location: [facility] # of Visits: 02 Billing Units Approved: 02 Diagnosis Code(s): M81.0 Medical Necessity: YES Clinic Stock: YES Is this insurance In Network or Out of Network?: IN Network Insurance Verified: [employer] Reference #: NA MAC review needed? YES Referral sent to: CLINIC / PFC * Telephone Encounter - Emely Frazier OSA - 08/26/2024 9:42 AM EST APPROVED SEE REFERRAL MESSAGE * Telephone Encounter - Emely Frazier OSA - 08/24/2024 7:12 AM EST Per [employer]ic[employer] this request is still pending * Telephone Encounter - Emely Frazier OSA - 08/20/2024 12:42 PM EST [facility] Authorization Submission Submission Information: Medication: PROLIA Portal used: [employer] Insurance: K Authorization #/Kent: [id number] * Telephone Encounter - Lindsey Herrmann LPN - 08/18/2024 3:17 PM EST Please auth for PF * Telephone Encounter - Franko Romano MD - 08/18/2024 11:27 AM EST Can we look into coverage for Prolia for osteoporosis. In the past use Reclast but contraindicated based on age adjusted GFR documented in this encounter Plan of Treatment Upcoming Encounters Date Type Department Care Team (Late st Contact Info) Description 09/21/2024 9:30 AM EST Nurse Only Rheumatology [place] [phone] [place] [address] Pf, Nurse Rheum [facility] [place] [address] 11/10/2024 10:30 AM EST Office Visit Pharmacy, [facility] [place] [address] [place] [address] [address] Pharmacist1, [facility] [address] [place] [address] 11/10/2024 11:00 AM EST Office Visit General Internal Medicine [facility] [place] [address] [place] [address] Tabitha Hall MD 200 [facility] [place] [address] 12/27/2024 2:20 PM EDT Office Visit Neurology [facility] [address] [facility] [place], [place] [address] Alvin Aragon MD 200 [facility] [place], [place] [address] 01/05/2025 9:40 AM EDT Office Visit General Internal Medicine [facility] [address] [facility] [place], [place] [address] Tabitha Hall MD [address] [facility] [place], [place] [address] 08/23/2025 9:40 AM EST Office Visit Rheumatology [place] [phone] [place], [place] [address] Franko Romano MD [address] [place] [address] Health Maintenance Due Date Last Done Comments [...] 01/25/2021, Additional history exists TSH 05/04/2025 05/04/2024, 3 10/2023, 06/12/2023, Additional history exists DXA Scan 08/18/2026 08/18/2024, 11/2021, 07/31/2020 DTap/Tdap Vaccines (3 - Td or Tdap) 06/27/2033 06/27/2023, 06/03/2012 Zoster Vaccines Completed 07/01/2019, 03/06, 10/06/2009 Pneumococcal Vaccine: 65+ Years Completed 06/07/2021, 01/07/2018, 03/21/2015 Influenza Vaccine (FLU shot) Completed 06/25/2024, 06/12/2023, 07/24/2021, Additional history exists VITAMIN D LEVEL ONCE IN A LIFETIME-USE SMARTSET# [id number] Completed 06/28/2024, 06/12/2023, 10/24/2021, Additional history exists [...] Senile osteoporosis- Primary documented in this encounter Advance Directives Documents on File Type Date Recorded Patient Associate Engineer Expl anation POLST 06/06/2021 POLST LIANNE REESE ORDERS FOR LIFE-SUSTAINING TREATMENT Care Teams Veneer Stock Layer Relationship Specialty Start Date End Date Tabitha Hall MD [address] [place] [address] PCP - General Internal Medicine 07/27/20 documented as of this encounter
--- OUTSIDE RECORDS SUMMARY | 2024-11-17 01:05 | External Medical Summary | Summary of Care ---
Author Name Unknown Organization [facility] Address [address] [place] [address] Phone [phone] Care Team Providers Care Room Server Name Role Phone Tabitha Hall MD Primary Care Provider + Reason for Visit * Reason Onset Date Comments Fax 06/02/2024 Encounter Details Date Type Department Care Team (Late st Contact Info) Description 06/02/2024 Telephone General Internal Medicine [facility] [place] [address] [place] [address] Tabitha Hall MD [address] [place] [address] Fax Allergies Active Allergy Reactions Criticality Noted Date Comments Ibuprofen 06/11/2016 Alendronate Sodium 08/13/2016 Celecoxib Nausea/vomiting 12/22/2013 Cheese Flavor 08/27/2013 Monosodium Glutamate 08/13/2016 Penicillin G 06/11/2016 Salicylates Unknown 05/17/2021 Sulfa Antibiotics 06/11/2016 documented as of this encounter (statuses as of 09/01/2024) Medications BD Insulin Syringe 25G X 5/8" 1 ML (Insulin Syringe-Needle U-100)Indications:C ontrolled type 2 diabetes mellitus with hyperglycemia, without long-term current use of insulin ([facility]),Type 2 diabetes mellitus with hemoglobin A1c goal of less than 8.0% ([facility]) Use to inject B-12 injection once a month. 10 Each 1 08/23/20 22 Active BD SafetyGlide Needle 25G X 1" (Needle (Disp)) Use for vitamin b12 injections monthly. 100 Each 5 01/12/20 24 Active [employer] French 3 [place] DeviceIndications:D M (diabetes mellitus), type 2, uncontrolled, with hyperosmolarity ([facility]) Use as directed. 1 Each 03/29/20 24 Active documented as of this encounter (statuses as of 09/01/2024) Active Problems Problem Noted Date Diagnosed Date [...] as of this encounter (statuses as of 09/01/2024) Resolved Problems Problem Noted Date Diagnosed Date Resolved Date DM (diabetes mellitus), type 2, uncontrolled, with hyperosmolarity 06/29/2024 07/13/2024 Dislocation closed, finger, subsequent encounter 09/06/2020 07/13/2024 documented as of this encounter (statuses as of 09/01/2024) Immunizations Name Administration Dates Next Due COVID-19 [...] encounter Miscellaneous Notes * Telephone Encounter - Suzanna Castanon OSA - 06/02/2024 3:20 PM EDT Caller requesting the following information to be faxed: Name/Company of caller: [employer] Information requested to be faxed: Pt referral Fax number: [phone] Attention to Name/Company: [employer] Any additional information?: sent rightfax documented in this encounter Plan of Treatment Upcoming Encounters Date Type Department Care Team (Late st Contact Info) Description 10/05/2024 9:00 AM EST Office Visit Pharmacy, [facility] [place] [address] [place] [address] [address] Pharmacist1, [facility] [address] [place] [address] 11/10/2024 11:00 AM EST Office Visit General Internal Medicine [facility] [place] [address] [place] [address] Tabitha Hall MD [address] [place] [address] 12/27/2024 2:20 PM EDT Office Visit Neurology [facility] [place] [address] [place] [address] Alvin Aragon MD [address] [place] [address] 01/05/2025 9:40 AM EDT Office Visit General Internal Medicine [facility] [place] [address] [place] [address] Tabitha Hall MD [address] [place] [address] 08/23/2025 9:40 AM EST Office Visit Rheumatology [address] [place] [address] Agustin Erickson MD [address] [place] [address] Health Maintenance Due Date Last Done Comments [...] D LEVEL ONCE IN A LIFETIME-USE SMARTSET# [id number] Completed 06/28/2024, 06/12/2023, 10/24/2021, Additional history exists [...] Documents on File Type Date Recorded Patient Entry Level Expl anation POLST 06/06/2021 POLST LIANNE REESE ORDERS FOR LIFE-SUSTAINING TREATMENT Care Teams Room Server Relationship Specialty Start Date End Date Tabitha Hall MD [address] [place] [address] PCP - General Internal Medicine 07/27/20 documented as of this encounter
--- OUTSIDE RECORDS SUMMARY | 2024-11-17 01:05 | External Medical Summary | Summary of Care ---
Author Name Unknown Organization [facility] Address [address] [place] [facility] [place] [address] Phone [phone] Care Team Providers Care Wine Consultant Name Role Phone Tabitha Hall MD Primary Care Provider + Reason for Visit * Reason Onset Date Comments Hospital Follow-Up 08/25/[address] [facility] facility Encounter Details Date Type Department Care Team (Late st Contact Info) Description 08/25/2024 Telephone Ancillary [facility] [place] [address] [place] [address] Carisa High RN Hospital Follow-Up (/Keyla from Personal Car... Allergies Active Allergy Reactions Criticality Noted Date Comments Ibuprofen 06/11/2016 Alendronate Sodium 08/13/2016 Celecoxib Nausea/vomiting 12/22/2013 Cheese Flavor 08/27/2013 Monosodium Glutamate 08/13/2016 Penicillin G 06/11/2016 Salicylates Unknown 05/17/2021 Sulfa Antibiotics 06/11/2016 documented as of this encounter (statuses as of 08/25/2024) Medications BD Insulin Syringe 25G X 5/8" 1 ML (Insulin Syringe-Needle U-100)Indications:C ontrolled type 2 diabetes mellitus with hyperglycemia, without long-term current use of insulin ([facility]),Type 2 diabetes mellitus with hemoglobin A1c goal of less than 8.0% ([facility]) Use to inject B-12 injection once a month. 10 Each 1 08/23/20 22 Active Cyanocobalamin 1000 MCG/ML Injection Solution (Cyanocobalamin)Ind ications:B12 deficiency INJECT 1000MCG DIRECTED EVERY 30 DAYS 1 mL 12/25/19 24 Active BD SafetyGlide Needle 25G X 1" (Needle (Disp)) Use for vitamin b12 injections monthly. 100 Each 5 01/12/20 24 Active FreeStyle French 3 [place] DeviceIndications:D M (diabetes mellitus), type 2, uncontrolled, [...] to low back 3x daily, Reported on 08/24/2024 DULoxetine HCl 60 MG Oral Capsule Delayed [...] OA,Recurrent major depressive disorder, in partial remission ([facility]) TAKE ONE CAPSULE BY MOUTH EVERY MORNING [...] long-term current use of insulin ([facility]) Take 1 Tablet by mouth 2 [...] TabletIndications:S IADH (syndrome of inappropriate ADH production) ([facility]) Take 1 Tablet by mouth in [...] as of this encounter (statuses as of 08/25/2024) Active Problems Problem Noted Date Diagnosed Date Cognitive impairment 07/13/2024 Closed fracture of rib of left side with routine healing 07/13/2024 Nondisplaced fracture of lef t tibial tuberosity, subsequent encounter for closed fracture with routine healing 07/13/2024 Closed nondisplaced fracture of left patella with routine healing 07/13/2024 Recurrent major depressive disorder, in partial remission 10/24/2021 Controlled type 2 diabetes m ellitus with hyperglycemia, without long-term current use of insulin 08/17/2020 SIADH (syndrome of inappropriate ADH production) 08/17/2020 DDD (degenerative disc disease), cervical 2019 Senile osteoporosis Diabetes type 2, controlled Generalized OA Hypothyroidism Glaucoma DDD (degenerative disc disease), lumbosacral documented as of this encounter (statuses as of 08/25/2024) Resolved Problems Problem Noted Date Diagnosed Date Resolved Date DM (diabetes mellitus), type 2, uncontrolled, with hyperosmolarity 06/29/2024 07/13/2024 Dislocation closed, finger, subsequent encounter 09/06/2020 07/13/2024 documented as of this encounter (statuses as of 08/25/2024) Immunizations Name Administration Dates Next Due COVID-19 [...] encounter Miscellaneous Notes * Telephone Encounter - Carisa High RN - 08/25/2024 3:10 PM EST Transitions of Care Note Reason for Referral:Recent Admission Phone visit for follow up: keyla Admitted to: [facility] , Date: 07.09.24 [facility] 06.30.24 Discharged to:[facility] , Date: 08.24.24 Diagnosis driving hospitalization: fall with left patellar fracture, left tibial tuberosity fracture, and left rib fracture Source/Contact: Patient's Caregiver Surekha SUBJECTIVE Consent: Verbal consent for review of hospital discharge: Yes REVIEW OF SYSTEMS Patient/Other Reports: Current patient/caregiver problems or concerns: Surekha still has concerns about her balance, patient forgets to use her walker at times. Patient has fallen multiple times this year CV: Denies problems Pulmonary: Denies problems Chills/Sweats/Fever:Denies chills/sweats Denies fever Appetite:Denies problems such as nausea, vomiting, burning, decreased appetite Current diet: reg Bowel: constipation, I did recommend speaking to Tabitha Hall MD tomorrow patient can take a colace prn, she states patient does drink lots of fluids and maybe since the transition to personal care the food might get better. Bladder: denies problems Wound (If applicable): N/A Pain:Denies Lower back and pain, patient did have xrays recently and they are waiting for the prolia joao Pacheco. Sleep:Denies problems FUNCTIONAL STATUS: ADL'S: Needs Assistance With:Bathing, Dressing, and Toileting IADL'S: Needs Assistance With:patient resides in a personal intermediate, family has not communicated with patient that this is most likely [facility]. Caregiver states this is the happiest she has seen patient. Cognitive and Mental Health: denies problems, alert and oriented x 3, and able to communicate, understand instructions, process information. But caregiver has noticed a change in her memory, sometimes she says she forgets to use the walker. MEDICATION RECONCILIATION Medications: Reports all medications taken as prescribed. OBJECTIVE ASSESSMENT Medication Risk Assessment: No risks identified Did patient fail outpatient treatment? No Discharge instructions available for review? Yes PLAN Symptom Monitoring Interventions:Member/caregiver education - signs and symptoms to contact PrimaryCare (DO NOT DELETE-Three esparza symptoms patient is to report to PCP) 1. Worsening pain 2. Any falls 3. Sob/chest pain Jailer/Training OfficerConcrete Bucket Unloader of Care interventions/Action Plan: 5 - 7 day follow-up with PCP in place - Date: 08.26.24 Educated on role of KEYLA completed with patient/caregiver. Educated patient/caregiver on patient right to have input on KEYLA plan of care. Verification of Home Health/DME if indicated: NO Identified Care Gaps: Yes Care Gaps closed this call: Transition of Care follow-up communication Re-evaluation of Plan of Care and progress towards goals achievement: Patient education this visit: Verbal, patient to use walker to ambulate and colace and stay hydrated Plan to follow-up as previously scheduled, instructed to call Primary Care Provider with change in symptoms or as needed before next follow-up, verbalizes understanding and agrees with plan. Transitional PT and OT will continue at personal care facility Carisa High RN documented in this encounter Plan of Treatment Upcoming Encounters Date Type Department Care Team (Late st Contact Info) Description 08/26/2024 2:20 PM EST Office Visit General Internal Medicine [facility] [address] [place] [address] Tabitha Hall MD [address] [place] [address] 10/05/2024 9:00 AM EST Office Visit Pharmacy, [facility] [address] [place] [address] [address] [address] Pharmacist1, [facility] [address] [place] [address] 11/10/2024 11:00 AM EST Office Visit General Internal Medicine [facility] [address] [place] [address] Tabitha Hall MD [address] [place] [place] [address] 12/27/2024 2:20 PM EDT Office Visit Neurology [facility] [address] [facility] [place], [place] [address] Alvin Aragon MD [address] [facility] [place], [place] [address] 01/05/2025 9:40 AM EDT Office Visit General Internal Medicine [facility] [address] [facility] [place] [address] Tabitha Hall MD [address] [facility] [place], [place] [address] 08/23/2025 9:40 AM EST Office Visit Rheumatology [facility] [address] [place], [place] [address] Agustin Erickson MD [address] [place], [place] [address] Health Maintenance Due Date Last Done Comments [...] D LEVEL ONCE IN A LIFETIME-USE SMARTSET# [id number] Completed 06/28/2024, 06/12/2023, 10/24/2021, Additional history exists [...] Documents on File Type Date Recorded Patient Scientific Technical Writer Expl anation PANFILOST 06/06/2021 ANTOINETTE REESE ORDERS FOR LIFE-SUSTAINING TREATMENT Care Teams Wine Consultant Relationship Specialty Start Date End Date Tabitha Hall MD [address] [place] [address] PCP - General Internal Medicine 07/27/20 documented as of this encounter
--- OUTSIDE RECORDS SUMMARY | 2024-11-17 01:05 | External Medical Summary | Summary of Care ---
Author Name Unknown Organization [facility] [address] [facility] [address] Phone [phone] Care Team Providers Care Assistant Scientist Name Role Phone Tabitha Hall MD Primary Care Provider + Encounter Details Date Type Department Care Team (Late st Contact Info) Description 09/15/2024 Telephone Rheumatology [facility] [address] [facility] [place] [address] Agustin Erickson MD [address] [facility] [place] [id number] Allergies Active Allergy Reactions Criticality Noted Date Comments Ibuprofen 06/11/2016 Alendronate Sodium 08/13/2016 Celecoxib Nausea/vomiting 12/22/2013 Cheese Flavor 08/27/2013 Monosodium Glutamate 08/13/2016 Penicillin G 06/11/2016 Salicylates Unknown 05/17/2021 Sulfa Antibiotics 06/11/2016 documented as of this encounter (statuses as of 09/15/2024) Medications BD Insulin Syringe 25G X 5/8" [...] Each 5 01/12/20 Active FreeStyle French 3 [place] DeviceIndications:D M (diabetes mellitus), type 2, uncontrolled, [...] CHEW. Takes in evening 30 Capsule 08/18/20 Active DULoxetine HCl 30 MG Oral Capsule [...] every 30 days. 1 mL 11 08/26/20 Active documented as of this encounter (statuses as of 09/15/2024) Active Problems Problem Noted Date Diagnosed Date [...] as of this encounter (statuses as of 09/15/2024) Resolved Problems Problem Noted Date Diagnosed Date Resolved Date DM (diabetes mellitus), type 2, uncontrolled, with hyperosmolarity 06/29/2024 07/13/2024 Dislocation closed, finger, subsequent encounter 09/06/2020 07/13/2024 documented as of this encounter (statuses as of 09/15/2024) Immunizations Name Administration Dates Next Due COVID-19 [...] Miscellaneous Notes * Telephone Encounter - Lindsey Malcolm LPN - 09/15/2024 1:54 PM EST See te from 08/18 * Telephone Encounter - Cee James OSA - 09/15/2024 12:43 PM EST Patient of Dr Erickson calling to schedule her prolia injection. She did receive her authorizationletter. Please advise documented in this encounter Plan of Treatment Upcoming Encounters Date Type Department Care Team (Late st Contact Info) Description 11/10/2024 10:30 AM EST Office Visit Pharmacy, [facility] [place] [address] [place] [address] Pharmacist1, [facility] [address] [place] [address] 11/10/2024 11:00 AM EST Office Visit General Internal Medicine [facility] [place] [address] [place] [address] Tabitha Hall MD [address] [place] [address] 12/27/2024 2:20 PM EDT Office Visit Neurology [facility] [place] [address] [place] [address] Alvin Aragon MD [address] [place] [address] [address] 01/05/2025 9:40 AM EDT Office Visit General Internal Medicine [facility] [place] [address] [place] [address] Tabitha Hall MD [address] [place] [address] 08/23/2025 9:40 AM EST Office Visit Rheumatology [place] [id number] [facility] [place] [address] Agustin Erickson MD [address] [place] [address] Health Maintenance Due Date Last Done Comments [...] D LEVEL ONCE IN A LIFETIME-USE SMARTSET# [id number] Completed 06/28/2024, 06/12/2023, 10/24/2021, Additional history exists [...] Documents on File Type Date Recorded Patient Manager Business Process Expl anation POLST 06/06/2021 POLST LIANNE REESE ORDERS FOR LIFE-SUSTAINING TREATMENT Care Teams Assistant Scientist Relationship Specialty Start Date End Date Tabitha Hall MD [address] [facility] [place] [address] PCP - General Internal Medicine 07/27/20 documented as of this encounter
--- OUTSIDE RECORDS SUMMARY | 2024-11-17 01:05 | External Medical Summary | Summary of Care ---
Author Name Unknown Organization [facility] Address [address] [place] [facility] [place] [place] [address] Phone [phone] Care Team Providers Care Mortgage Loan Officer Name Role Phone Tabitha Hall MD Primary Care Provider + Reason for Visit * Reason Onset Date Comments Hospital Follow-Up 08/25/2024 Keyla from [facility] facility Encounter Details Date Type Department Care Team (Late st Contact Info) Description 08/25/2024 Telephone Ancillary [facility] [place] [address] [place] [address] Carisa High RN Hospital Follow-Up (/Keyla from Personal Car... Allergies Active Allergy Reactions Criticality Noted Date Comments Ibuprofen 06/11/2016 Alendronate Sodium 08/13/2016 Celecoxib Nausea/vomiting 12/22/2013 Cheese Flavor 08/27/2013 Monosodium Glutamate 08/13/2016 Penicillin G 06/11/2016 Salicylates Unknown 05/17/2021 Sulfa Antibiotics 06/11/2016 documented as of this encounter (statuses as of 08/27/2024) Medications BD Insulin Syringe 25G X 5/8" [...] Each 5 01/12/20 Active FreeStyle French 3 [place] DeviceIndications:D M (diabetes mellitus), type 2, uncontrolled, [...] 30 Tablet 08/18/20 Active Cholecalciferol 50 MCG (2000 UT) Oral [...] use of insulin ([facility]) Take 1 Tablet by mouth 2 times [...] use of insulin ([facility]) Inject 0.75 mg under the skin once [...] DIRECTED EVERY 30 DAYS 1 mL 12/25/19 024 Discontin ued(Refil l) documented as of this encounter (statuses as of 08/27/2024) Active Problems Problem Noted Date Diagnosed Date [...] as of this encounter (statuses as of 08/27/2024) Resolved Problems Problem Noted Date Diagnosed Date Resolved Date DM (diabetes mellitus), type 2, uncontrolled, with hyperosmolarity 06/29/2024 07/13/2024 Dislocation closed, finger, subsequent encounter 09/06/2020 07/13/2024 documented as of this encounter (statuses as of 08/27/2024) Immunizations Name Administration Dates Next Due COVID-19 [...] Telephone Encounter - Tabitha Hall MD - 08/27/2024 9:00 AM EST Noted. Pt seen. * Telephone Encounter - Carisa High RN - 08/25/2024 3:10 PM EST Transitions of Care Note Reason for Referral:Recent Admission Phone visit for follow up: keyla Admitted to: [facility] , Date: 07.09.24 [facility] 06.30.24 Discharged to:[facility] , Date: 08.24.24 Diagnosis driving hospitalization: [...] and they are waiting for the prolia start withDraJrvis Thomasman. Sleep:Denies problems FUNCTIONAL STATUS: ADL'S: Needs Assistance With:Bathing, Dressing, and Toileting IADL'S: Needs Assistance With:patient resides in a personal usp, family has not communicated with patient that this is most likely jail. Caregiver states this is the happiest she [...] pain 2. Any falls 3. Sob/chest pain Automatic Steel Tie AdjusterSolar Sales Consultant of Care interventions/Action Plan: 5 - 7 [...] [facility] [address] [place] [address] Pharmacist1, [facility] [address] [place] [address] 11/10/2024 11:00 AM EST Office Visit General Internal Medicine [facility] [address] [place] [address] Tabitha Hall MD [address] [place] [address] 12/27/2024 2:20 PM EDT Office Visit Neurology [facility] [address] [facility] [place], [place] [address] Alvin Aragon MD 200 [facility] [place] [address] 01/05/2025 9:40 AM EDT Office Visit General Internal Medicine [facility] [address] [place], [place] [address] Tabitha Hall MD 200 [facility] [place], [place] [address] 08/23/2025 9:40 AM EST Office Visit Rheumatology [place] [address] [employer] [place], [place] [address] Agustin Erickson MD [address] [place], [place] [address] Health Maintenance Due Date Last Done Comments [...] D LEVEL ONCE IN A LIFETIME-USE SMARTSET# [id number] Completed 06/28/2024, 06/12/2023, 10/24/2021, Additional history exists [...] Documents on File Type Date Recorded Patient Horse Groomer Expl anation POLST 06/06/2021 ANTOINETTE REESE ORDERS FOR LIFE-SUSTAINING TREATMENT Care Teams Mortgage Loan Officer Relationship Specialty Start Date End Date Tabitha Hall MD [address] [place] [address] PCP - General Internal Medicine 07/27/20 documented as of this encounter
--- OUTSIDE RECORDS SUMMARY | 2024-11-17 01:05 | External Medical Summary | Summary of Care ---
Author Name Unknown Organization [facility] Address [address] [place] [address] Phone [phone] Care Team Providers Care Strip Machine Tender Name Role Phone Tabitha Hall MD Primary Care Provider + Reason for Visit * Reason Onset Date Comments Precert Approved 08/18/2024 Prolia - waitin g for oop cost Encounter Details Date Type Department Care Team (Late st Contact Info) Description 08/18/2024 Telephone Rheumat[address] [place] [address] Franko Erickson MD [address] [place], [place] [address] [address] Precert Approved (Prolia - waiting for oop... [...] 5 01/12/20 24 Active FreeStyle French 3 [place] DeviceIndications:D M (diabetes mellitus), type 2, uncontrolled, [...] encounter Miscellaneous Notes * Telephone Encounter - Valerie Ramírez OSA - 09/15/2024 3:56 PM EST Scheduled. * Telephone Encounter - Lindsey Malcolm LPN - 09/15/2024 1:58 PM EST Please call and schedule this patient for an appointment with the [facility] Nurse clinic in for Prolia, per referral message no auth obtained and we were advised pt would have no oop. * Telephone Encounter - Janene Malcolm LPN - 08/27/2024 9:15 AM EST Drug name: Prolia HCPCS code(s): J0897 Authorization Require: [id number] Valid auth start date: 08 20 2024 Valid auth end date: 08 19 2025 [facility] # of Visits: 02 Billing Units Approved: 02 Diagnosis Code(s): M81.0 Medical Necessity: YES Clinic Stock: YES Is this insurance In Network or Out of Network?: IN Network Insurance Verified: [employer] Reference #: NA MAC review needed? YES Referral sent to: CLINIC / PFC * Telephone Encounter - Emely Frazier OSA - 08/26/2024 9:42 AM EST APPROVED SEE REFERRAL MESSAGE * Telephone Encounter - Emely Frazier OSA - 08/24/2024 7:12 AM EST Per Predicatal this request is still pending * Telephone Encounter - Emely Frazier OSA - 08/20/2024 12:42 PM EST [facility] Authorization Submission Submission Information: Medication: PROLIA Portal used: Availity Insurance: HMK Authorization #/Kent: [id number] * Telephone Encounter - Lindsey Malcolm LPN [...] 09/21/2024 9:30 AM EST Nurse Only Rheumatology [address] [place] [address] Pf, Nurse Rheum [facility] [address] [place], [place] [address] 11/10/2024 10:30 AM EST Office Visit Pharmacy, [facility] [place] [address], [place] [address] Pharmacist1, [facility] [address], [place] [address] 11/10/2024 11:00 AM EST Office Visit General Internal Medicine [facility] [place] [address], [place] [address] Tabitha Hall MD [address] [place], [place] [address] 12/27/2024 2:20 PM EDT Office Visit Neurology [facility] [address], [place] [address] Alvin Aragon MD 200 [facility] [place], [place] [address] 01/05/2025 9:40 AM EDT Office Visit General Internal Medicine [facility] [address], [place] [address] Tabitha Hall MD 200 [facility] [place], [place] [address] 08/23/2025 9:40 AM EST Office Visit Rheumatology [place] [address] [place], [place] [address] Franko Erickson MD [address] [place] [address] Health Maintenance Due Date Last Done Comments [...] D LEVEL ONCE IN A LIFETIME-USE SMARTSET# [id number] Completed 06/28/2024, 06/12/2023, 10/24/2021, Additional history exists [...] Documents on File Type Date Recorded Patient Bdr Expl anation POLST 06/06/2021 ANTOINETTE REESE ORDERS FOR LIFE-SUSTAINING TREATMENT Care Teams Strip Machine Tender Relationship Specialty Start Date End Date Tabitha Hall MD 200 [facility] [place] [address] PCP - General Internal Medicine 07/27/20 documented as of this encounter
--- OUTSIDE RECORDS SUMMARY | 2024-11-17 01:05 | External Medical Summary | Summary of Care ---
Author Name Unknown Organization [facility] Address [address] [place] [address] Phone [phone] Care Team Providers Care Cutting Department Supervisor Name Role Phone Tabitha Hall MD Primary Care Provider + Reason for Visit * Reason Comments eRx-Medication Refill Encounter Details Date Type Department Care Team (Late st Contact Info) Description 09/07/2024 Refill General Internal Medicine [facility] 200 [facility] [place] [address] Tabitha Hall MD 200 [place] [address] Allergies Active Allergy Reactions Criticality Noted Date Comments Ibuprofen 06/11/2016 Alendronate Sodium 08/13/2016 Celecoxib Nausea/vomiting 12/22/2013 Cheese Flavor 08/27/2013 Monosodium Glutamate 08/13/2016 Penicillin G 06/11/2016 Salicylates Unknown 05/17/2021 Sulfa Antibiotics 06/11/2016 documented as of this encounter (statuses as of 09/09/2024) Medications BD Insulin Syringe 25G X 5/8" [...] Each 5 01/12/20 Active FreeStyle French 3 [place] DeviceIndications:D M (diabetes mellitus), type 2, uncontrolled, [...] hyperglycemia, without long-term current use of insulin ([facility]) Take 1 Tablet by mouth 2 times [...] TabletIndications:S IADH (syndrome of inappropriate ADH production) ([facility]) Take 1 Tablet by mouth in the [...] hyperglycemia, without long-term current use of insulin ([facility]) Inject 0.75 mg under the skin once a week. 2 mL 11/13/20 24 Active Acetaminophen 325 MG Oral Tablet [...] as of this encounter (statuses as of 09/09/2024) Active Problems Problem Noted Date Diagnosed Date [...] as of this encounter (statuses as of 09/09/2024) Resolved Problems Problem Noted Date Diagnosed Date Resolved Date DM (diabetes mellitus), type 2, uncontrolled, with hyperosmolarity 06/29/2024 07/13/2024 Dislocation closed, finger, subsequent encounter 09/06/2020 07/13/2024 documented as of this encounter (statuses as of 09/09/2024) Immunizations Name Administration Dates Next Due COVID-19 [...] encounter Miscellaneous Notes * Telephone Encounter - Rachelle Vaughn [facility] - 09/09/2024 8:27 AM ESTRefused Prescriptions: Disp Refills Levothyroxine Sodium 50 MCG Oral Tablet (L*18 Tab*11 Sig: GIVE 1 TAB BY MOUTH EVERY FRIDAY , EVERY FRIDAY , EVERY FRIDAY , EVERY FRIDAY (HYPOTHROID)Refused By: RACHELLE VAUGHNRealessandro for Refusal: Dose needs clarificationReason for Refusal Comment: 50mcg discontinued 08/18, 25mcg script sent with new instruction documented in this encounter Plan of Treatment Upcoming Encounters Date Type Department Care Team (Late st Contact Info) Description 10/05/2024 9:00 AM EST Office Visit Pharmacy, [facility] [place] [address] [place] [address] Pharmacist1, [facility] [address] [place] [address] 11/10/2024 11:00 AM EST Office Visit [facility] Internal [facility] [place] [address] [place] [address] Tabitha Hall MD [address] [place] [address] 12/27/2024 2:20 PM EDT Office [facility] [place] [address] [place] [address] Alvin Aragon MD [address] [place] [address] 01/05/2025 9:40 AM EDT Office Visit General Internal Medicine [facility] [place] [address] [place] [address] Tabitha Hall MD 200 [facility] [place] [address] 08/23/2025 9:40 AM EST Office Visit Rheumatology [facility] [address] [place] [address] Agustin Erickson MD [address] [place], [place] [address] Health Maintenance Due Date Last Done Comments [...] D LEVEL ONCE IN A LIFETIME-USE SMARTSET# [id number] Completed 06/28/2024, 06/12/2023, 10/24/2021, Additional history exists [...] Documents on File Type Date Recorded Patient Director Of Casework Expl anation POLST 06/06/2021 POLST LIANNE REESE ORDERS FOR LIFE-SUSTAINING TREATMENT Care Teams Cutting Department Supervisor Relationship Specialty Start Date End Date Tabitha Hall MD [address] [place] [address] PCP - General Internal Medicine 07/27/20 documented as of this encounter
--- OUTSIDE RECORDS SUMMARY | 2024-11-17 01:06 | External Medical Summary | Summary of Care ---
Author Name Unknown Organization [facility] Address [address] [place] [address] Phone [phone] Care Team Providers Care Conventions Assistant Name Role Phone Tabitha Hall MD Primary Care Provider + Reason for Visit * Reason Onset Date Comments [facility] Visit - Discharge 08/24/2024 Encounter Details Date Type Department Care Team (Late st Contact Info) Description 08/24/2024 9:00 AM EST [facility] Visit [facility], [address] [address] Carrie Grimes PA-C [address] [place] [address] Hip pain, right*; Acute bilateral low back pain without sciatica; Personal history of fall; Nondisplaced fracture of left tibial tuberosity, subsequent encounter for closed fracture with routine healing; Closed nondisplaced fracture of left patella with routine healing, unspecified fracture morphology, subsequent encounter; Memory changes; Generalized OA; Recurrent major depressive disorder, in partial remission ([facility]); Acquired hypothyroidism; Controlled type 2 diabetes mellitus with hyperglycemia, without long-term current use of insulin ([facility]); Hyperlipidemia with target LDL less than 100; Age-related osteoporosis with current pathological fracture with routine healing, subsequent encounter; Hyperlipidemia, unspecified hyperlipidemia type; SIADH (syndrome of inappropriate ADH production) ([facility]); Glaucoma of both eyes, unspecified glaucoma type Allergies Active Allergy Reactions Criticality Noted Date Comments Ibuprofen 06/11/2016 Alendronate Sodium 08/13/2016 Celecoxib Nausea/vomiting 12/22/2013 Cheese Flavor 08/27/2013 Monosodium Glutamate 08/13/2016 Penicillin G 06/11/2016 Salicylates Unknown 05/17/2021 Sulfa Antibiotics 06/11/2016 documented as of this encounter (statuses as of 08/24/2024) Medications BD Insulin Syringe 25G X 5/8" 1 ML (Insulin Syringe-Needle U-100)Indications:C ontrolled type 2 diabetes mellitus with hyperglycemia, without long-term current use of insulin ([facility]),Type 2 diabetes mellitus with hemoglobin A1c goal of less than 8.0% ([facility]) Use to inject B-12 injection once a month. 10 Each 1 08/23/20 22 Active Cyanocobalamin 1000 MCG/ML Injection Solution (Cyanocobalamin)Ind ications:B12 deficiency INJECT 1000MCG DIRECTED EVERY 30 DAYS 1 mL 11 12/25/19 24 Active BD SafetyGlide Needle 25G X 1" (Needle (Disp)) Use for vitamin b12 injections monthly. 100 Each 5 01/12/20 24 Active FreeStyle French 3 [place] DeviceIndications:D M (diabetes mellitus), type 2, uncontrolled, with hyperosmolarity ([facility]) Use as directed. 1 Each 03/29/20 24 Active FreeStyle French 3 Plus SensorIndications:D M (diabetes mellitus), type 2, uncontrolled, with hyperosmolarity ([facility]) Change sensor every 15 days. 2 Each [...] as of this encounter (statuses as of 08/24/2024) Active Problems Problem Noted Date Diagnosed Date [...] as of this encounter (statuses as of 08/24/2024) Resolved Problems Problem Noted Date Diagnosed Date Resolved Date DM (diabetes mellitus), type 2, uncontrolled, with hyperosmolarity 06/29/2024 07/13/2024 Dislocation closed, finger, subsequent encounter 09/06/2020 07/13/2024 documented as of this encounter (statuses as of 08/24/2024) Immunizations Name Administration Dates Next Due COVID-19 [...] Sign Reading Time Taken Comments Blood Pressure 149/89 08/24/2024 10:55 AM EST Pulse 89 08/24/2024 10:55 AM EST Temperature 36.8 C (98.3 F) 08/24/2024 10:[address] Respiratory Rate 18 08/24/2024 10:55 AM EST Oxygen Saturation 100% 08/24/2024 10:55 AM EST room air Inhaled Oxygen Concentration - - Weight 44.4 kg (97 lb 12.8 oz) 08/24/2024 10:55 AM EST Height - - Body Mass Index 24.48 06/29/2024 9:33 AM EDT documented in this encounter Plan of Treatment Upcoming Encounters Date Type Department Care Team (Late st Contact Info) Description 08/26/2024 2:20 PM EST Office Visit General Internal Medicine [facility] [address] [place] [address] Tabitha Hall MD [address] [place] [address] 10/05/2024 9:00 AM EST Office Visit Pharmacy, [facility] [address] [place] [address] [address] Pharmacist1, [facility] [address] [place] [address] 11/10/2024 11:00 AM EST Office Visit General Internal Medicine [facility] [address] [place], [place] [address] Tabitha Hall MD [address] [place], [place] [address] 12/27/2024 2:20 PM EDT Office Visit Neurology [facility] [address] [place], [place] [address] Alvin Aragon MD [address] [facility] [place], [place] [address] 01/05/2025 9:40 AM EDT Office Visit General Internal Medicine [facility] [address] [place], [place] [address] Tabitha Hall MD [address] [facility] [place], [place] [address] 08/23/2025 9:40 AM EST Office Visit Rheumatology [place] [address] [employer] [place], [place] [address] Agustin Erickson MD [address] [employer] [place], [place] [address] Health Maintenance Due Date Last Done Comments [...] D LEVEL ONCE IN A LIFETIME-USE SMARTSET# [id number] Completed 06/28/2024, 06/12/2023, 10/24/2021, Additional history exists [...] as of this encounter Visit Diagnoses Diagnosis Hip pain, right- Primary Pain in joint, pelvic region and thigh Acute bilateral low back pain without sciatica Personal history of fall Nondisplaced fracture of left tibial tuberosity, subsequent encounter for closed fracture with routine healing Closed nondisplaced fracture of left patella with routine healing, unspecified fracture morphology, subsequent encounter Memory changes Memory loss Generalized OA Generalized osteoarthrosis, unspecified site Recurrent major depressive disorder, in partial remission (H[facility]) Acquired hypothyroidism Unspecified hypothyroidism Controlled type 2 diabetes mellitus with hyperglycemia, without long-term current use of insulin ([facility]) Hyperlipidemia, unspecified hyperlipidemia type Age-related osteoporosis with current pathological fracture with routine healing, subsequent encounter SIADH (syndrome of inappropriate ADH production) ([facility]) Other disorders of neurohypophysis Glaucoma of both eyes, unspecified glaucoma type documented in this encounter Advance Directives Documents on File Type Date Recorded 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 [place] [address] PCP - General Internal Medicine 07/27/20 documented as of this encounter
--- OUTSIDE RECORDS SUMMARY | 2024-11-17 01:06 | External Medical Summary | Summary of Care ---
Author Name Unknown Organization [facility] Address [address] [facility] [place] [address] Phone [phone] Care Team Providers Care Head Cleaning Porter Name Role Phone Tabtiha Hall MD Primary Care Provider + Encounter Details Date Type Department Care Team (Late st Contact Info) Description 08/20/2024 Result Scan Unspecified Department [facility] [id number] <No scans attached> Allergies Active Allergy Reactions Criticality Noted Date Comments Ibuprofen 06/11/2016 Alendronate Sodium 08/13/2016 Celecoxib Nausea/vomiting 12/22/2013 Cheese Flavor 08/27/2013 Monosodium Glutamate 08/13/2016 Penicillin G 06/11/2016 Salicylates Unknown 05/17/2021 Sulfa Antibiotics 06/11/2016 documented as of this encounter (statuses as of 08/23/2024) Medications BD Insulin Syringe 25G X 5/8" 1 ML (Insulin Syringe-Needle U-100)Indications:C ontrolled type 2 diabetes mellitus with hyperglycemia, without long-term current use of insulin ([facility]),Type 2 diabetes mellitus with hemoglobin [...] 5 01/12/20 24 Active FreeStyle French 3 [place] DeviceIndications:D M (diabetes mellitus), type 2, uncontrolled, [...] as needed). 350 g 08/18/20 24 Active DULoxetine HCl 60 MG Oral [...] OA,Recurrent major depressive disorder, in partial remission ([facility]) TAKE ONE CAPSULE BY MOUTH EVERY [...] long-term current use of insulin ([facility]) Take 1 Tablet by mouth [...] (syndrome of inappropriate ADH production) ([facility]) Take 1 Tablet by mouth [...] long-term current use of insulin ([facility]) Inject 0.75 mg under the [...] as of this encounter (statuses as of 08/23/2024) Active Problems Problem Noted Date Diagnosed Date [...] as of this encounter (statuses as of 08/23/2024) Resolved Problems Problem Noted Date Diagnosed Date Resolved Date DM (diabetes mellitus), type 2, uncontrolled, with hyperosmolarity 06/29/2024 07/13/2024 Dislocation closed, finger, subsequent encounter 09/06/2020 07/13/2024 documented as of this encounter (statuses as of 08/23/2024) Immunizations Name Administration Dates Next Due COVID-19 [...] 10/05/2024 9:00 AM EST Office Visit Pharmacy, [facility] [address], [place] [address] Pharmacist1, [facility] [address], [place] [address] 11/10/2024 11:00 AM EST Office Visit General Internal Medicine [facility] [address], [place] [address] Tabitha Hall MD [address], [place] [address] 12/27/2024 2:20 PM EDT Office Visit Neurology [facility] [address], [place] [address] Alvin [place]agon MD [address], [place] [address] 01/05/2025 9:40 AM EDT Office Visit General Internal Medicine [facility] [address], [place] [address] Tabitha Hall MD [address], [place] [address] 08/23/2025 9:40 AM EST Office Visit Rheumatology [place] [address] [facility] [place], [place] [address] Agustin Erickson MD [facility] [place] [address] Health Maintenance Due Date Last Done Comments [...] 05/04/2025 05/04/2024, 0510/2023, 06/12/2023, Additional history exists DXA Scan 08/18/2026 08/18/2024, 11/2021, 07/31/2020 DTap/Tdap Vaccines (3 - Td or Tdap) 06/27/2033 06/27/2023, 06/03/2012 Zoster Vaccines Completed 07/01/2019, 03/06, 10/06/2009 Pneumococcal Vaccine: 65+ Years Completed 06/07/2021, 01/07/2018, 03/21/2015 Influenza Vaccine (FLU shot) Completed , 06/12/2023, 07/24/2021, Additional history exists VITAMIN D LEVEL ONCE IN A LIFETIME-USE SMARTSET# [id number] Completed 06/28/2024, 06/12/2023, 10/24/2021, Additional history exists [...] Procedure Name Priority Date/Time Associated Diagnosis Comments OUTSIDE LAB RESULTS 08/20/2024 documented in this encounter Results * OUTSIDE LAB RESULTS (08/20/2024) 08/20/2024 Carrie Grimes PA-C LABORATORY Final Re sult documented in this encounter Advance Directives Documents on File Type Date Recorded 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
--- OUTSIDE RECORDS SUMMARY | 2024-11-17 01:06 | External Medical Summary | Summary of Care ---
Author Name Unknown Organization [facility] Address [address] [place] [address] Phone [phone] Care Team Providers Care Auto Repair Technician Name Role Phone Tabitha Hall MD Primary Care Provider + Reason for Visit * Reason Onset Date Comments [facility] Visit - Discharge 08/24/2024 Encounter Details Date Type Department Care Team (Late st Contact Info) Description 08/24/2024 9:00 AM EST [facility] Visit [facility], [address] [address] Carrie Grimes PA-C [address] [facility] [place] [address] Hip pain, right*; Acute bilateral low back pain without sciatica; Personal history of fall; Nondisplaced fracture of left tibial tuberosity, subsequent encounter for closed fracture with routine healing; Closed nondisplaced fracture of left patella with routine healing, unspecified fracture morphology, subsequent encounter; Memory changes; Generalized OA; Recurrent major depressive disorder, in partial remission ([facility]); Acquired hypothyroidism; Controlled type 2 diabetes mellitus with hyperglycemia, without long-term current use of insulin ([facility]); Hyperlipidemia with target LDL less than 100; Age-related osteoporosis with current pathological fracture with routine healing, subsequent encounter; Hyperlipidemia, unspecified hyperlipidemia type; SIADH (syndrome of inappropriate ADH production) ([facility]); Glaucoma of both eyes, unspecified [...] 5 01/12/20 24 Active FreeStyle French 3 [place] DeviceIndications:D M (diabetes mellitus), type 2, uncontrolled, with hyperosmolarity ([facility]) Use as directed. 1 Each 03/29/20 24 Active FreeStyle French 3 Plus SensorIndications:D M (diabetes mellitus), type 2, uncontrolled, with hyperosmolarity ([facility]) Change sensor every 15 days. [...] 9:33 AM EDT documented in this encounter Progress Notes * Carrie Grimes PA-C - 08/24/2024 9:58 AM EST DISCHARGE NOTE TRANSITION EVENT: Type: Discharge to Personal Care Facility Date: August 24 Code Status: Full Code Name: Lilibeth Kong Date of : 1940 This note pertains to care provided at [facility]. Please see facility medical record for original note. This note is not to be edited or addended in [facility]. Editing or addending needs to occur in the facilities medical record. Discharge Medications: Current Outpatient Medications Medication Sig Dispense Refill BD Insulin Syringe 25G X 5/8" 1 ML (Insulin Syringe-Needle U-100) Use to inject B-12 injection oncea month. 10 Each 1 Cyanocobalamin 1000 MCG/ML Injection Solution (Cyanocobalamin) INJECT 1000MCG DIRECTED EVERY 30 DAYS 1 mL 11 BD SafetyGlide Needle 25G X 1" (Needle (Disp)) Use for vitamin b12 injections monthly. 100 Each 5 FreeStyle French 3 [place] Device Use as directed. 1 Each 0 FreeStyle French 3 Plus Sensor Change sensor every 15 days. 2 Each 11 Vitamin C 500 MG Oral Tablet (Ascorbic Acid) Take 1 Tablet by mouth in the morning. 30 Tablet 0 Calcium Carbonate-Vitamin D 500-5 MG-MCG Oral Tablet Take 1 Tablet by mouth in the morning. 30 Tablet 0 Cholecalciferol 50 MCG (2000 UT) Oral [...] skin once a week. 2 mL 0 Acetaminophen 325 MG Oral Tablet (Tylenol) Take 2 Tablets by mouth 3 times a day. 180 Tablet 0 Vitamin B12 100 MCG Oral Tablet Take 1 Tablet by mouth in the morning. 30 Tablet 0 Tylenol 325 MG Oral Capsule (Acetaminophen) Take by mouth. Magnesium Hydroxide 400 MG/5ML Oral Suspension (Mom) Take by mouth daily as needed for Constipation. Hydrocortisone 1 % External Cream Apply topically to affected area 2 times a day. No current facility-administered medications for this visit. S: Lilibeth Kong is being discharged from [facility] to personal care facility ([facility]). Admitted to [facility] on 07/09/24 for short- term rehab following hospitalization, which is summarized below. Per admitting note dated 07/13/24: "Recently admitted to [facility] on 06/30/24 because of fall with left [...] with Tylenol. No medication changes were made. Patient is now admitted for PT/OT. She lives at home with her . Patient states she is havingsome rib and knee pain. She is not sure that she has asked for or taken any Tylenol. She does note that she does not like to take a lot of medicine but does agree to a once daily dose of Tylenol and would like to have it in the afternoon. Appetite is fair. Has had some constipation and states she took a dose of MOM today. She denies chest pain or shortness of breath. " She reported an unwitnessed fall on 08/16/24 with pain of the groin, low back, left SI area, and right shoulder. X ray imaging of these areas indicated no acute fractures and old findings which were present on prior imaging (results below). She has additional outpatient pelvic x ray on 08/18/24, which was negative for fracture. She has been re-evaluated by physical therapy and has had no functional decline related to above mentioned event, and is still ambulating about 500 feet with a walker. She had follow up with orthopedics (Dr. Barnett) on 08/12/24 and is no longer required to wear knee immobilizer. Has history of : Past Medical History: Diagnosis Date DDD (degenerative disc disease), lumbosacral Diabetes type 2, controlled (HCC) Generalized OA Glaucoma Hypothyroidism Senile osteoporosis Patient Active Problem List Diagnosis Senile osteoporosis Diabetes type 2, controlled ([facility]) Generalized OA Hypothyroidism Glaucoma DDD (degenerative disc disease), lumbosacral DDD (degenerative disc disease), cervical Controlled type 2 diabetes mellitus with hyperglycemia, without long-term current use of insulin ([facility]) SIADH (syndrome of inappropriate ADH production) ([facility]) Recurrent major depressive disorder, in partial remission ([facility]) Cognitive impairment Closed fracture of rib of left side with routine healing Nondisplaced fracture of left tibial tuberosity, subsequent encounter for closed fracture with routine healing Closed nondisplaced fracture of left patella with routine healing Past Surgical History: Procedure Laterality Date LIGATE/CUT OVIDUCT(S) Family History Problem Relation Name Age of Onset Arthritis Father Heart Disorder Father Other (osteoporosis) Mother Family Status Relation Status Mo Alive Fa Alive emphysema Son Alive Unknown (Not Specified) Social History Socioeconomic History Marital status: Spouse [...] Social History Narrative Not on file Social Needs Financial Resource Strain: Not on file Food Insecurity: No Food Insecurity (01/14/2023) Hunger Vital Sign Worried About Running Out of Food in the Last Year: Never true Ran Out of Food in the Last Year: Never true Transportation Needs: Not on file Social Connections: Not on file Housing Stability: Not on file Review of patient's allergies indicates: Allergen Reactions Advil [Ibuprofen] Alendronate Sodium Celecoxib Nausea/vomiting Cheese Cheddar Type [Cheese Flavor] Monosodium Glutamate Penicillin G Salicylates Unknown Sulfa Antibiotics Adequate nutrition/fluids: Yes Bowel/Bladder dysfunction: No Assistive Devices: with walker ADL: dependent O: BP 149/89 | Pulse 89 | Temp 36.8 C (98.3 F) | Resp 18 | Wt 44.4 kg (97 lb 12.8 oz) | SpO2 100% Comment: room air | BMI 24.48 kg/m | BSA 1.29 m General: alert and no distress Head: Normocephalic Eye Exam: conjunctiva are pink and non-injected, sclera clear Oropharynx: lips, buccal mucosa, and tongue normal and mucous membranes are moist Heart: regular rate & rhythm Lungs: chest symmetric with normal AP diameter, no chest deformities noted, no chest wall tenderness, lungs clear to auscultation Abdomen: abdomen soft, non-tender, normal bowel sounds, no masses or organomegaly, and no rebound or guarding Extremities: less than 2 second capillary refill, no joint deformities, effusion, or inflammation, no edema Neuro Exam: alert & oriented x 2 with fluent speech Skin: skin color, texture, turgor are normal, no rashes or significant lesions Musculoskeletal: tenderness noted over bilateral SI joints, right worse than left, painless ROM bilateral hips PROCEDURE: PELVIS STATUS: Final INTERPRETATION: Date of Service: 08/16/2024 Clinical Information: LOWER BACK PAIN; HX OF FALLS Test Procedure: [id number] PELVIS FINDINGS: There is no significant osseous or soft tissue abnormality. Mild degenerative joint disease is seen in the pelvis and hips. . IMPRESSION: Mild DJD changes. No fracture nor other significant bony abnormality. . End of Report Interpreting Doctor: JEANMARIE WHYTE D.O. Electronically Signed By: JEANMARIE WHYTE D.O. Signed Date: Physician electronically signed on - 08/16/2024 21:12 PROCEDURE: SACRUM/COCCYX STATUS: Final INTERPRETATION: Date of Service: 08/16/2024 Clinical Information: LOWER BACK PAIN; HX OF FALLS Test Procedure: [id number] SACRUM/COCCYX FINDINGS: There is no acute fracture of the sacrum or coccyx. There is noted grade 2 spondylolisthesis secondary to presence of spondylolysis or pars defects of L-5 with forward shift over S-1. IMPRESSION: No fracture of the sacrum or coccyx. Grade 2 spondylolisthesis of L-5/ 1 cm forward shift over the sacral base. . . End of Report Interpreting Doctor: JEANMARIE WHYTE D.O. Electronically Signed By: JEANMARIE WHYTE D.O. Signed Date: Physician electronically signed on - 08/16/2024 21:15 PROCEDURE: LUMBAR SPINE STATUS: Final INTERPRETATION: Date of Service: 08/16/2024 Clinical Information: LOWER BACK PAIN; HX OF FALLS Test Procedure: [id number] LUMBAR SPINE FINDINGS: There is compression deformity at the superior endplate of the L-2 vertebral body. There is no other definite evidence of compression fracture in the remaining lumbar and visualized lower thoracic region. There is degenerative spinal osteoarthritis. There is spondylolysis of L5 and forward shift and grade 2 spondylolisthesis. IMPRESSION: Mild active compression fracture at the superior endplate of the L-2 vertebral body. . End of Report Interpreting Doctor: JEANMARIE WHYTE D.O. Electronically Signed By: JEANMARIE WHYTE D.O. Signed Date: Physician electronically signed on 08/16/2024 21:18 PROCEDURE: SHOULDER RT STATUS: Final INTERPRETATION: Date of Service: 08/16/2024 Clinical Information: PAIN POST FALL Test Procedure: [id number] SHOULDER RT FINDINGS: There is severe osteoarthritis and chronic degenerative rotator cuff derangement and with superior migration of the humeral head and subacromial encroachment and impingement. IMPRESSION: No acute fracture or dislocation. Severe osteoarthritis and chronic degenerative rotator cuff derangement. . End of Report Interpreting Doctor: JEANMARIE WHYTE D.O. Electronically Signed By: JEANMARIE WHYTE D.O. Signed Date: Physician electronically signed on 08/16/2024 22:47 A: Hip pain, right (Primary) Acute bilateral low back pain without sciatica No fracture on imaging Will continue tylenol, utilize diclofenac gel 4 gm to low back area 3x daily Personal history of fall - PHYSICAL THERAPY REFERRAL OP - OCCUPATIONAL THERAPY REFERRAL OP Nondisplaced fracture of left tibial tuberosity, subsequent encounter for closed fracture with routine healing - PHYSICAL THERAPY REFERRAL OP - OCCUPATIONAL THERAPY REFERRAL OP Closed nondisplaced fracture of left patella with routine healing, unspecified fracture morphology,subsequent encounter - PHYSICAL THERAPY REFERRAL OP - OCCUPATIONAL THERAPY REFERRAL OP Memory changes - PHYSICAL THERAPY REFERRAL OP - OCCUPATIONAL THERAPY REFERRAL OP Generalized OA - PHYSICAL THERAPY REFERRAL OP - OCCUPATIONAL THERAPY REFERRAL OP - Diclofenac Sodium 1 % External Gel (Voltaren) - DULoxetine HCl 60 MG Oral Capsule Delayed Release Particles (Cymbalta); TAKE ONE CAPSULE BY MOUTHEVERY MORNING along with duloxetine 30 mg capsule ( total dose 90mg) ,DO NOT CUT, CRUSH, OR CHEW. Takes in evening - DULoxetine HCl 30 MG Oral Capsule Delayed Release Particles (Cymbalta); TAKE ONE CAPSULE BY MOUTHEVERY MORNING along with duloxetine 60 mg capsule ( total dose 90mg) ,DO NOT CUT, CRUSH, OR CHEW. Takes in evening - Acetaminophen 325 MG Oral Tablet (Tylenol); Take 2 Tablets by mouth 3 times a day. Recurrent major depressive disorder, in partial remission ([facility]CC) - DULoxetine HCl 60 MG Oral Capsule Delayed Release Particles (Cymbalta); TAKE ONE CAPSULE BY MOUTHEVERY MORNING along with duloxetine 30 mg capsule ( total dose 90mg) ,DO NOT CUT, CRUSH, OR CHEW. Takes in evening - DULoxetine HCl 30 MG Oral Capsule Delayed Release Particles (Cymbalta); TAKE ONE CAPSULE BY MOUTHEVERY MORNING along with duloxetine 60 mg capsule ( total dose 90mg) ,DO NOT CUT, CRUSH, OR CHEW. Takes in evening Acquired hypothyroidism - Levothyroxine Sodium 25 MCG Oral Tablet (Levoxyl); Take by mouth: 2 pills once daily Friday to and take one pill Friday to Friday.(at least 30 min prior to breakfast or other meds) Controlled type 2 diabetes mellitus with hyperglycemia, without long-term current use of insulin ([facility]) - metFORMIN HCl ER 500 MG Oral Tablet Extended Release 24 Hour (Glucophage XR); Take 1 Tablet by mouth 2 times a day with morning and evening meals. - Trulicity 0.75 MG/0.5ML Subcutaneous Solution Auto-injector (Dulaglutide); Inject 0.75 mg under the skin once a week. Hyperlipidemia with target LDL less than 100 - Rosuvastatin Calcium 5 MG Oral Tablet (Crestor); Take 1 Tablet by mouth once a day on Friday, Friday, and Friday only. Age-related osteoporosis with current pathological fracture with routine healing, subsequent encounter - Calcium Carbonate-Vitamin D 500-5 MG-MCG Oral Tablet; Take 1 Tablet by mouth in the morning. - Cholecalciferol 50 MCG (2000 UT) Oral Tablet; Take 1 Tablet by mouth in the morning. 1 daily. Hyperlipidemia, unspecified hyperlipidemia type - Rosuvastatin Calcium 5 MG Oral Tablet (Crestor); Take 1 Tablet by mouth once a day on Friday, Friday, and Friday only. SIADH (syndrome of inappropriate ADH production) ([facility]) - Sodium Chloride 1 GM Oral Tablet; Take 1 Tablet by mouth in the morning. Glaucoma of both eyes, unspecified glaucoma type - Travoprost (RENEA Free) 0.004 % Ophthalmic Solution (Travatan Z); Instill 1 Drop into both eyes at bedtime. 1 daily Other orders - Vitamin C 500 MG Oral Tablet (Ascorbic Acid); Take 1 Tablet by mouth in the morning. - CoQ10 100 MG Oral Capsule; Take 1 Capsule by mouth in the morning. - Iron Glycinate 29 MG Oral Capsule; Take 1 Capsule by mouth once a day on Friday, , and Friday only. - Magnesium 250 MG Oral Tablet; Take 1 Tablet by mouth once a day on Friday, Friday, and Friday only. - Vitamin B12 100 MCG Oral Tablet; Take 1 Tablet by mouth in the morning. P: 1. Discharge to personal care facility 2. Transitional PT and OT will continue at personal care facility 3. Copy of chart sent to PCP 4. Patient to follow up with PCP within 7 days. 5. Satellite Installation Technician: Iram Dominguez at [facility] 6. I spent 44 minutes on discharge. documented in this encounter Plan of Treatment Upcoming Encounters Date Type Department Care Team (Late st Contact Info) Description 08/26/2024 2:20 PM EST Office Visit [facility] [employer] [address] [place] [address] Tabitha Hall MD [address] [place] [address] 10/05/2024 9:00 AM EST Office Visit Pharmacy, [employer] [address] [place] [address] Pharmacist1, [facility] [address] [place] [address] 11/10/2024 11:00 AM EST Office Visit General Internal Medicine [facility] [employer] [address] [place] [address] Tabitha Hall MD [address] [place] [address] 12/27/2024 2:20 PM EDT Office Visit Neurology [facility] [address] [place] [address] Alvin Aragon MD [address] [place] [address] 01/05/2025 9:40 AM EDT Office Visit General Internal Medicine [facility] [address] [place], [place] [address] Tabitha Hall MD [address] [facility] [place], [place] [address] 08/23/2025 9:40 AM EST Office Visit Rheumatology [facility] [address] [place], [place] [address] Agustin Erickson MD [address] [employer] [place], [place] [address] Health Maintenance Due Date Last Done Comments [...] D LEVEL ONCE IN A LIFETIME-USE SMARTSET# [id number] Completed 06/28/2024, 06/12/2023, 10/24/2021, Additional history exists [...] encounter SIADH (syndrome of inappropriate ADH production) ([facility]CC) Other disorders of neurohypophysis Glaucoma of both eyes, unspecified glaucoma type documented in this encounter Advance Directives Documents on File Type Date Recorded 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
--- NOTE | 2024-11-17 02:57 | CT Scan Report ---
EXAM: CT abd pelvis wo con CLINICAL HISTORY: Abdominal pain and distention TECHNIQUE: Contiguous axial images were obtained from the level of the diaphragm to the pubic symphysis without intravenous or oral contrast. Coronal and sagittal reconstructions were likewise performed and indicated to increase the sensitivity for detecting clinically relevant pathology. CT scan was performed according to ALARA (as low as reasonably achievable). 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 Evaluation of the abdominal and pelvic visceral organs is limited without intravenous contrast. Diffuse hypoattenuation of liver parenchyma. The unenhanced spleen, pancreas, and adrenal glands are grossly unremarkable. The gallbladder is present. The kidneys are normal in size and attenuation without obvious calcification. There is no hydronephrosis or perinephric stranding. The ureters are normal in caliber. No adenopathy or fluid collections are seen. No evidence of focal or diffuse bowel wall thickening or evidence of bowel obstruction is seen. No evidence of inflamed appendix. The aorta is normal in caliber. The urinary bladder is normal in contour. Pelvic viscera are grossly unremarkable. Diffuse atherosclerotic wall calcification of abdominal aorta. Grade I anterolisthesis of L5 over S1 with old bilateral pars interarticularis fracture. Old central compression fracture of L1 vertebral body and anterior wedge compression of L2 vertebra. Degenerative changes in rest of the visualized spine. IMPRESSION: 1. Hepatic steatosis. 2. No significant interval change compared with previous study. Electronically signed by Josesito Diaz 11-17-2024 02:57 AM
[2024-11-17] MEDS: LEVOTHYROXINE SODIUM 50 MCG TABLET PO SCH (05:47)
[2024-11-17] MEDS: ENALAPRILAT 1.25 MG in DEXTROSE 5% 25 ML IV STA (06:58)
[2024-11-17 08:10] LABS: Hematocrit (blood only) 34.5 % (37.0-47.0); Hemoglobin 11.4 g/dl (12.0-16.0); Mean Corpuscular Hemoglobin 27.4 pg (25.0-34.0); Mean Corpuscular Volume 82.9 fL (80.0-100.0); Mean Platelet Volume 9.7 fL (9.4-12.4); Platelet Count 334 K/uL (130-400); RDW Coefficient of Variation 12.9 % (11.5-14.5); RDW Standard Deviation 38.9 fL (36.4-46.3); Red Blood Count 4.16 M/uL (4.20-5.40); White Blood Count 13.79 K/ul (4.8-10.8)
[2024-11-17 08:43] LABS: BUN Creatinine Ratio 18.5 (10-20); Calcium 8.9 mg/dl (8.6-10.3); Creatinine Clr Calc Pharmacy 48.3 ml/min
[2024-11-17 08:58] LABS: Thyroid Stimulating Hormone 2.516 uIu/ml (0.300-4.500)
[2024-11-17] MEDS ORDERED: NON-FORMULARY MEDICATION (Coenzyme Q10 [Coq-10] 100 mg Capsule) PO SCH (09:00)
[2024-11-17] MEDS: MAGNESIUM OXIDE 400 MG TAB PO SCH (09:10)
[2024-11-17] MEDS: ROSUVASTATIN CALCIUM 5 MG TAB PO SCH (09:10)
[2024-11-17] MEDS: CHOLECALCIFEROL 25 MCG (1000 UNITS) TAB PO SCH (09:10)
[2024-11-17] MEDS: CYANOCOBALAMIN (B-12) 100 MCG TABLET PO SCH (09:10)
[2024-11-17] MEDS: DULoxetine HCL 30 MG CAP PO SCH (09:10)
[2024-11-17] MEDS: SODIUM CHLORIDE 1 GM TABLET PO SCH (09:10)
[2024-11-17] MEDS: CALCIUM 600MG + VIT D 400 IU TAB PO SCH (09:11)
[2024-11-17] MEDS: DULoxetine HCL 60 MG CAP PO SCH (09:12)
[2024-11-17] MEDS: ACETAMINOPHEN 325 MG TAB PO SCH (09:12)
[2024-11-17] MEDS: ASCORBIC ACID 500 MG TAB PO SCH (09:12)
[2024-11-17] MEDS: INSULIN ASPART PER UNIT CHARGE SC SCH (09:13)
[2024-11-17] MEDS: LANTUS PER UNIT CHARGE SQ SCH (09:13)
[2024-11-17 09:18] LABS: Estimated Average Glucose 189 mg/dl; Hemoglobin A1C 8.2 % (4.5-5.6)
[2024-11-17] MEDS: HEPARIN SOD 5,000 UNIT/0.5 ML VIAL SQ SCH (09:23)
--- NOTE | 2024-11-17 13:04 | Magnetic Resonance Report ---
MRI OF THE LUMBAR SPINE WITHOUT CONTRAST CLINICAL HISTORY: Back pain. Frequent falls. COMPARISON STUDY: Lumbar spine CT November 16, 2024. Lumbar spine CT June 30, 2024. Lumbar spin e MRI May 18, 2015. TECHNIQUE: Utilizing a 1.5 Daniella magnet and dedicated coil, multiplanar, [facility] was performed without IV contrast. FINDINGS: For purposes of numbering on this exam, the L5-S1 disc space is assigned to axial image 27 of 30. 8 m m of anterolisthesis of L5 on S1 is due to bilateral L5 pars defects. This is unchanged since MRI of May 18, 2015. An old mild L2 compression fractures unchanged since CT of June 30, 2024. There is a moderate compression fracture of the superior endplate of L1 with 50% loss of vertebral body he ight. There is marrow edema. This fracture is new since CT of June 30, 2024. There is 4 mm of re tropulsion at the superior endplate of L1 which results in moderate narrowing of the right aspect of the canal. This indents the right ventral aspect of the cord. No additional lumbar spine fractures ar e present. No suspicious marrow replacement is present. Subacute to chronic left sacral ala insuffici ency fractures present. Moderate multilevel degenerative changes within the lumbar spine are present. L1-2: There is minimal disc bulge. Central canal and neural foramen are patent. There is facet arthro sis. L2-3: There is moderate facet arthrosis. The central canal and neural foramen are patent. L3-4: There is moderate disc space narrowing with facet arthrosis and ligamentous hypertrophy. There is moderate central canal and mild bilateral neural foraminal stenosis. L4-5: Moderate to space narrowing is noted with facet arthrosis and ligamentous hypertrophy. There is mild narrowing of the central canal and left neural foramen. There is moderate right neural foramina l stenosis. L5-S1: Anterolisthesis due to bilateral L5 pars defects is present. There is no central canal stenosi s. Severe left and moderate right neural foraminal stenosis is unchanged. IMPRESSION: 1. Acute to subacute L1 compression fracture with 50% loss of vertebral body height and 4 mm of retro pulsion which results in moderate central canal narrowing. This indents the right ventral aspect of t he cord without cord signal abnormality. 2. Chronic L2 compression fracture. 3. Moderate degenerative changes within the lumbar spine, as described above. 4. No change in anterolisthesis of L5 on S1 due to bilateral L5 pars defects. 5. Subacute to chronic left sacral ala insufficiency fracture. ACT 112: Negative or not required by law. Electronically signed by: Robert Amaral M.D. 11/17/2024 1:03 PM
--- NOTE | 2024-11-17 13:41 | Emergency Department Note ---
Impression & Plan Fall, Left hip pain, Lumbar compression fracture, Leukocytosis ED Provider Note NAME: YONNY FARLEY AGE: 84 SEX: F : 1940 ARRIVES VIA: Ambulance INFORMANT: [Patient] ED PROVIDER(S): [Jeff Noe MD] CHIEF COMPLAINT: Fall HISTORY OF PRESENT ILLNESS: The patient is an 84-year-old female who presents to the ER after falling trying to get out of or into bed. She complains of left knee, left hip and some back pain. She was brought by ambulance for evaluation. She did not strike her head. She has no neck pain or headache, no upper back pain, no chest pain. She has been in baseline health. PMHx/PSHx/Social Hx: See Below PHYSICAL EXAM: Primary Survey Airway: Intact Breathing: Breath sounds equal bilaterally. No respiratory distress Circulation: Skin warm, capillary refill less than 2 seconds Disability: Pupils equal and reactive to light Motor Function: Moves all extremities. Sensory: No deficits Secondary Survey GEN: Well developed and well-nourished HEAD: Normocephalic, atraumatic EYES: Pupils round and reactive to light, conjunctiva clear, extraocular movements intact ENT: No fluid in external acoustic canals, nares patent, oropharynx clear NECK: Midline trachea, no cervical spine tenderness HEART: Regular rate and rhythm LUNGS: Clear to auscultation bilaterally CHEST: Chest wall non-tender, no bruising/deformity ABD: No contusions, soft, non-tender, no distention PELVIS: Stable to rock BACK: No step offs or deformities, tender in the area of the upper L-spine, no step-off EXT: Moving all extremities well, no gross deformities. Tender in the area of the left posterior lateral hip NEURO: No focal motor deficits, no sensory deficits DIFFERENTIAL DIAGNOSIS: Fracture, sprain, strain, contusion, among others. EMERGENCY DEPARTMENT PROCEDURES: MEDICAL DECISION MAKING: There is a mild leukocytosis, this could be consistent with infection or just the stress of her presentation/fall. There was a very subtle anemia. There was a normal platelet count. Sodium slightly low but not in need of emergent correction. No renal failure. No concerning liver enzyme elevation. Patient appeared to be in a euthyroid state. Films of the left tib-fib, left knee and left hip/pelvis were performed, no fracture seen. CT imaging of the left hip and the lumbar spine were performed. There was no left hip fracture. There was a new L1 compression fracture. The patient was having back pain as noted above. She did not require pain medication. We did reach out to [facility], her care center. She is going to require a higher level of care than she is currently receiving. She will require a hospital stay until they are able to make arrangements for her to be in an area with more advanced care. I did speak with case management at length. I did speak with the patient, the on-call hospitalist was consulted. I do believe the L1 compression fracture is causing the majority of her discomfort. The left hip appears contused. Prior/Outside records/notes reviewed: Today's EMS notes describing her presentation and transport to this hospital. Imaging/x-ray results per my interpretation: X-rays of the left knee, left tib-fib and left hip and pelvis were performed. No fractures visualized. Arthritis seen. Chronic Medical/Social conditions affecting care: Advanced age. Care/Management discussed with: Case management, the on-call hospitalist. Level of care consideration(s): After review of the information above and other included data: --I believe the patient requires escalation of care to admission DISPOSITION: Admission Past Med/Surg History Problem List (Updated 11/17/24 @ 13:41 by Jeff Noe MD) Leukocytosis (Acute) Lumbar compression fracture (Acute) Left hip pain (Acute) Fall (Acute) Abdominal distension Loss of consciousness Acute hyponatremia (Acute) Laceration of scalp (Acute) Acute head trauma (Acute) Weakness (Acute) Right rotator cuff tear Degenerative arthritis of knee, bilateral Contusion of left knee Left knee DJD Fracture of metacarpal of left hand, closed Right rotator cuff tear arthropathy Gait disturbance Bilateral primary osteoarthritis of knee Closed fracture of greater trochanter of left femur (Acute) Dementia Dementia Chronic hyponatremia Recurrent falls Multiple rib fractures (Acute) COVID-19 (Acute) Type 2 diabetes mellitus Cervical spinal stenosis Cervical radiculopathy HTN (hypertension) Osteoarthritis of knees, bilateral Hypothyroid (Chronic) Vitamin B12 deficiency Carotid artery plaque (Acute) 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) Spondylolisthesis, acquired (Acute) Skin abnormality (Acute) Osteoporosis (Acute) Glaucoma (Acute) Esophageal reflux (Acute) Dyslipidemia (Acute) Disc degeneration, lumbosacral (Acute) Medical History Multiple fractures Compression fx, lumbar spine Closed rib fracture Weakness Fall Closed tibial fracture Rib fracture Compression fracture of L2 Left patella fracture Ambulatory dysfunction Fall DVT prophylaxis Thrombocytosis Hypochloremia Acute hyponatremia Unsteady gait Signs and symptoms involving cognition Numbness of left foot Colon cancer screening Surgical History History of tubal ligation Family History Sister Breast cancer Father Myocardial infarction Other No pertinent family history Denies family history of Colon cancer Ovarian cancer Prostate cancer Social History Smoking Status: Never smoker Tobacco Type: Declines Second Hand Exposure: No; Do You Dip or Chew Tobacco: No; Hx Alcohol Use: No Hx Substance Use: No Preferred Language: Greenlandic Communication Ability: Effective Visual Impairment: No Limitations Hearing Ability: Normal Enterprise Applications Manager Required: No Beliefs That Will Affect Care: None marital status: Current Living Situation: Spouse Current Living Situation Comment: HOME HEALTH AIDE Feels Safe at Home: Yes Seatbelt Use: always Assistive Devices: Cane, Walker and Wheelchair Allergies Allergies Allergy/AdvReac Type Severity Reaction Status Date / Time salicylates Allergy Severe HIVES Verified 11/16/24 21:36 monosodium glutamate Allergy Mild Unknown Verified 11/16/24 21:36 Penicillins Allergy Mild Unknown Verified 11/16/24 21:36 Sulfa (Sulfonamide Allergy Mild Unknown Verified 11/16/24 21:36 Antibiotics) alendronate sodium Allergy Unknown UNKNOWN Verified 02/16/24 08:15 aspirin Allergy Unknown Hives Verified 11/16/24 21:36 Home Meds Home Medications Medication Instructions Recorded Confirmed ascorbic acid (vitamin C) 500 mg 500 mg PO DAILY 06/23/19 11/16/24 tablet cholecalciferol (vitamin D3) 50 2,000 units PO QAM 06/23/19 11/16/24 mcg (2,000 unit) tablet travoprost 0.004 % eye drops 1 drops OPB HS #3 mL 06/23/19 11/16/24 diclofenac sodium 1 % topical gel 4 g topical TID PRN Other 08/07/20 11/16/24 sodium chloride 1 gram tablet 1 g PO DAILY 10/02/20 11/16/24 coenzyme Q10 100 mg capsule 100 mg PO DAILY 03/21/21 11/16/24 (CoQ-10) duloxetine 60 mg capsule,delayed 60 mg PO DAILY 03/21/21 11/16/24 release metformin 500 mg tablet,extended 500 mg PO BID 03/21/21 11/16/24 release 24 hr cyanocobalamin (vitamin B-12) 1,000 mcg IM MONTHLY 09/25/23 11/16/24 1,000 mcg/mL injection kit dulaglutide 0.75 mg/0.5 mL 0.75 mg subcut .ON HOLD 09/25/23 11/16/24 [facility] rosuvastatin 5 mg tablet 5 mg PO 3XWK 09/25/23 11/16/24 duloxetine 30 mg capsule,delayed 30 mg PO DAILY 06/30/24 11/16/24 release Iron Glycinate Oral Capsule 28 mg PO 3XWK 11/16/24 11/16/24 acetaminophen 325 mg tablet 650 mg PO Q4 PRN Pain 11/16/24 11/16/24 acetaminophen 325 mg tablet 650 mg PO Q4 PRN TEMP 100F OR ABOVE 11/16/24 11/16/24 calcium 500 mg (as 1 tab PO DAILY 11/16/24 11/16/24 carbonate)-vitamin D3 5 mcg (200 unit) tablet cyanocobalamin (vitamin B-12) 100 100 mcg PO DAILY 11/16/24 11/16/24 mcg tablet (Vitamin B-12) diclofenac sodium 1 % topical gel 2 g topical Q6 PRN Pain 11/16/24 11/16/24 diclofenac sodium 1 % topical gel 2 g topical TID 32GM/24HR 11/16/24 11/16/24 hydrocortisone 1 % topical cream 1 applic topical Q12 PRN BLE FOR 11/16/24 11/16/24 ITCHING levothyroxine 25 mcg tablet 25 mcg PO 3XWK 11/16/24 11/16/24 levothyroxine 50 mcg tablet 50 mcg PO 4XWK 11/16/24 11/16/24 magnesium 250 mg tablet 250 mg PO 3XWK 11/16/24 11/16/24 Results & Data (ED) Vital Signs Vital Signs - 24 hr 11/16/24 14:16 11/16/24 14:39 11/16/24 16:32 Temperature 37 C Temperature Source Oral Pulse Rate 98 H 96 H Pulse Rate [Right Finger] 88 Pulse Rhythm [Right Finger] Regular Pulse Strength [Right Finger] Normal Respiratory Rate 22 19 Respiratory Effort / Characteristics Non-Labored Spontaneous Non-Labored Respiratory Depth Normal Normal Respiratory Pattern Regular Regular Blood Pressure 179/93 H Blood Pressure [Right Arm] 150/80 H Blood Pressure Mean 121 Blood Pressure Mean [Right Arm] 103 Blood Pressure Position [Right Arm] Lying Pulse Oximetry 96 Oxygen Delivery Method Room Air Sepsis Recent Fever Within 48 Hours No Sepsis New/Unexplained Change in Mental Status N/A Sepsis Action Taken by Nursing No Action Required 11/16/24 18:28 Temperature Temperature Source Pulse Rate 86 Pulse Rate [Right Finger] Pulse Rhythm [Right Finger] Pulse Strength [Right Finger] Respiratory Rate Respiratory Effort / Characteristics Respiratory Depth Respiratory Pattern Blood Pressure Blood Pressure [Right Arm] Blood Pressure Mean Blood Pressure Mean [Right Arm] Blood Pressure Position [Right Arm] Pulse Oximetry Oxygen Delivery Method Sepsis Recent Fever Within 48 Hours Sepsis New/Unexplained Change in Mental Status Sepsis Action Taken by Detention Medications Current Medication List: was personally reviewed by me Laboratory Data Attestation: I reviewed the patient's lab results. 11/17/24 07:16 11/17/24 07:16 Lab Results 11/16/24 Range/Units 21:34 WBC 13.43 H (4.8-10.8) K/ul RBC 4.02 L (4.20-5.40) M/uL Hgb 11.4 L (12.0-16.0) g/dl Hct 33.3 L (37.0-47.0) % MCV 82.8 (80.0-100.0) fL MCH 28.4 (25.0-34.0) pg MCHC 34.2 (32.0-36.0) g/dL RDW Std Deviation 38.6 (36.4-46.3) fL RDW Coeff of Maddie 12.9 (11.5-14.5) % Plt Count 315 (130-400) K/uL MPV 9.1 L (9.4-12.4) fL Sodium 131 L (136-145) mmol/L Potassium 4.5 (3.5-5.1) mmol/L Chloride 97 L (98-107) mmol/L Carbon Dioxide 27 (21-32) mmol/L Anion Gap 7 (3-11) BUN 13 (6-23) mg/dl Creatinine 0.54 L (0.6-1.2) mg/dl Est Cr Clr Drug Dosing 52.3 ml/min eGFR 89.61 BUN/Creatinine Ratio 24.1 H (10-20) Glucose 150 H (70-99(Fasting)) mg/dl Calcium 9.1 (8.6-10.3) mg/dl Total Bilirubin 0.9 (0.2-1.0) mg/dl AST 26 (13-39) U/L ALT 24 (7-52) U/L Alkaline Phosphatase 51 (34-104) U/L Total Protein 6.9 (6.0-8.3) gm/dl Albumin 4.2 (3.4-5.0) gm/dl Globulin 2.7 (2.5-4.0) gm/dl Albumin/Globulin Ratio 1.6 (0.9-2) TSH 2.157 (0.300-4.500) uIu/ml Administered Medications Acetaminophen (Acetaminophen 325 Mg Tab) 650 mg PO TID [facility] Stop: 12/17/24 08:59 Last Admin: 11/17/24 13:11 Dose: Not Given Documented By: Admin: 11/17/24 09:12 Dose: Not Given Documented By: OBDULIO Ascorbic Acid (Ascorbic Acid 500 Mg Tab) 500 mg PO DAILY LOGAN Stop: 12/17/24 08:59 Last Admin: 11/17/24 09:12 Dose: 500 mg Documented By: OBDULIO Calcium/Vitamin D (Calcium 600mg + Vit D 400 Iu Tab) 1 tab PO DAILY LOGAN Stop: 12/17/24 08:59 Last Admin: 11/17/24 09:11 Dose: 1 tab Documented By: OBDULIO Cyanocobalamin (Cyanocobalamin (B-12) 100 Mcg Tablet) 100 mcg PO DAILY LOGAN Stop: 12/17/24 08:59 Last Admin: 11/17/24 09:10 Dose: 100 mcg Documented By: OBDULIO Duloxetine HCl (Duloxetine Hcl 30 Mg Cap) 30 mg PO DAILY LOGAN Stop: 12/17/24 08:59 Last Admin: 11/17/24 09:10 Dose: 30 mg Documented By: OBDULIO Duloxetine HCl (Duloxetine Hcl 60 Mg Cap) 60 mg PO DAILY [facility] Stop: 12/17/24 08:59 Last Admin: 11/17/24 09:12 Dose: 60 mg Documented By: OBDULIO Heparin Sodium (Porcine) (Heparin Sod 5,000 Unit/0.5 Ml Vial) 5,000 units SQ Q12 LOGAN Stop: 12/17/24 08:59 Last Admin: 11/17/24 09:23 Dose: 5,000 units Documented By: OBDULIO Insulin Aspart (Insulin Aspart Per Unit Charge) 0 units SC ACHS LOGAN Stop: 12/17/24 07:29 Last Admin: 11/17/24 13:05 Dose: 3 units Documented By: OBDULIO Co-signed By: CHIP Admin: 11/17/24 09:13 Dose: 3 units Documented By: OBDULIO Co-signed By: CALE Insulin Glargine (Lantus Per Unit Charge) 5 units SQ BID LOGAN Stop: 12/17/24 08:59 Last Admin: 11/17/24 09:13 Dose: 5 units Documented By: OBDULIO Co-signed By: CALE Levothyroxine Sodium (Levothyroxine Sodium 50 Mcg Tablet) 50 mcg PO MoTuWeTh@0630 [facility] Stop: 12/17/24 06:29 Last Admin: 11/17/24 05:47 Dose: 50 mcg Documented By: KARINA Magnesium Oxide (Magnesium Oxide 400 Mg Tab) 400 mg PO MoWeFr@0900 [facility] Stop: 12/17/24 08:59 Last Admin: 11/17/24 09:10 Dose: 400 mg Documented By: OBDULIO Rosuvastatin Calcium (Rosuvastatin Calcium 5 Mg Tab) 5 mg PO MoWeFr@0900 [facility] Stop: 12/17/24 08:59 Last Admin: 11/17/24 09:10 Dose: 5 mg Documented By: OBDULIO Sodium Chloride (Sodium Chloride 1 Gm Tablet) 1 gm PO DAILY [facility] Stop: 12/17/24 08:59 Last Admin: 11/17/24 09:10 Dose: 1 gm Documented By: OBDULIO Vitamin D (Cholecalciferol 25 Mcg (1000 Units) Tab) 50 mcg PO QAM LOGAN Stop: 12/17/24 08:59 Last Admin: 11/17/24 09:10 Dose: 50 mcg Documented By: OBDULIO Discontinued Medications Hydralazine HCl (Hydralazine Hcl 20 Mg/Ml Vial) 5 mg IV NOW ONE Stop: 11/17/24 00:10 Last Admin: 11/17/24 00:23 Dose: 5 mg Documented By: KARINA Enalaprilat 1.25 mg/ Dextrose 26 mls @ 100 mls/hr IV NOW STA Stop: 11/17/24 00:10 Last Admin: 11/17/24 06:58 Dose: Not Given Documented By: OBDULIO Discharge Plan Visit Data Chief Complaint: Fall Stated Complaint: Fall ED Provider: Jeff Noe Discharge Problem: Fall, Left hip pain, Lumbar compression fracture, Leukocytosis Patient Disposition: Admitted As Inpatient Condition: Fair Discharge Instructions Interventions: ED Discharge Assessment Last Done: 11/16/24 23:03 Discharge Problem: Fall Qualifiers: Encounter type: initial encounter Qualified Code(s): W19.XXXA - Unspecified fall, initial encounter Lumbar compression fracture Qualifiers: Encounter type: initial encounter Lumbar vertebra fracture level: L1 Qualified Code(s): S32.010A - Wedge compression fracture of first lumbar vertebra, initial encounter for closed fracture Leukocytosis Qualifiers: Leukocytosis type: unspecified Qualified Code(s): D72.829 - Elevated white blood cell count, unspecified
--- NOTE | 2024-11-17 14:52 | Orthopedic Consultation ---
Date of Consultation November 17, 2024 Assessment & Plan (1) Lumbar compression fracture: Assessment L1 compression fracture, left sacral insufficiency fracture. Plan at this time I discussed the patient her MRI findings and clinical course. At this point her symptoms seem to be more in the pelvic region this could be a contribution of the sacral insufficiency fracture as well as the severe neuroforaminal stenosis L5-S1 the left secondary to the spondylolisthesis. She is not interested in any surgical intervention at this time. I would agree with this plan. I would initiate a course of physical therapy we may need interventional pain management for their assistance. History of Present Illness Reason for Consultation: Back pain Attending Physician: Li Dent MD History of Present Illness This is a very pleasant 84-year-old female that had a decline in status recently. She has several falls. She has had previous compression fractures now dealing with new pain patterns. This afternoon she states the majority of her pain is in the left SI joint region with some component of pain down the leg. It does limit her ability to stand and ambulate. She has not had physical therapy as of yet today. She denies any thoracolumbar discomfort. She denies any numbness or tingling to lower extremities. Denies any weakness in the legs. Allergies Allergy/AdvReac Type Severity Reaction Status Date / Time salicylates Allergy Severe HIVES Verified 11/16/24 21:36 monosodium glutamate Allergy Mild Unknown Verified 11/16/24 21:36 Penicillins Allergy Mild Unknown Verified 11/16/24 21:36 Sulfa (Sulfonamide Allergy Mild Unknown Verified 11/16/24 21:36 Antibiotics) alendronate sodium Allergy Unknown UNKNOWN Verified 02/16/24 08:15 aspirin Allergy Unknown Hives Verified 11/16/24 21:36 Home Medications Medication Instructions Recorded Confirmed Type ascorbic acid (vitamin C) 500 mg 500 mg PO DAILY 06/23/19 11/16/24 History tablet cholecalciferol (vitamin D3) 50 2,000 units PO QAM 06/23/19 11/16/24 History mcg (2,000 unit) tablet travoprost 0.004 % eye drops 1 drops OPB HS #3 mL 06/23/19 11/16/24 History diclofenac sodium 1 % topical gel 4 g topical TID PRN Other 08/07/20 11/16/24 History sodium chloride 1 gram tablet 1 g PO DAILY 10/02/20 11/16/24 History coenzyme Q10 100 mg capsule 100 mg PO DAILY 03/21/21 11/16/24 History (CoQ-10) duloxetine 60 mg capsule,delayed 60 mg PO DAILY 03/21/21 11/16/24 History release metformin 500 mg tablet,extended 500 mg PO BID 03/21/21 11/16/24 History release 24 hr cyanocobalamin (vitamin B-12) 1,000 mcg IM MONTHLY 09/25/23 11/16/24 History 1,000 mcg/mL injection kit dulaglutide 0.75 mg/0.5 mL 0.75 mg subcut .ON HOLD 09/25/23 11/16/24 History subcutaneous pen injector ([facility]) rosuvastatin 5 mg tablet 5 mg PO 3XWK 09/25/23 11/16/24 History duloxetine 30 mg capsule,delayed 30 mg PO DAILY 06/30/24 11/16/24 History release Iron Glycinate Oral Capsule 28 mg PO 3XWK 11/16/24 11/16/24 History acetaminophen 325 mg tablet 650 mg PO Q4 PRN Pain 11/16/24 11/16/24 History acetaminophen 325 mg tablet 650 mg PO Q4 PRN TEMP 100F OR ABOVE 11/16/24 11/16/24 History calcium 500 mg (as 1 tab PO DAILY 11/16/24 11/16/24 History carbonate)-vitamin D3 5 mcg (200 unit) tablet cyanocobalamin (vitamin B-12) 100 100 mcg PO DAILY 11/16/24 11/16/24 History mcg tablet (Vitamin B-12) diclofenac sodium 1 % topical gel 2 g topical Q6 PRN Pain 11/16/24 11/16/24 History diclofenac sodium 1 % topical gel 2 g topical TID 32GM/24HR 11/16/24 11/16/24 History hydrocortisone 1 % topical cream 1 applic topical Q12 PRN BLE FOR 11/16/24 11/16/24 History ITCHING levothyroxine 25 mcg tablet 25 mcg PO 3XWK 11/16/24 11/16/24 History levothyroxine 50 mcg tablet 50 mcg PO 4XWK 11/16/24 11/16/24 History magnesium 250 mg tablet 250 mg PO 3XWK 11/16/24 11/16/24 History Patient History Medical History Multiple fractures Compression fx, lumbar spine Closed rib fracture Weakness Fall Closed tibial fracture Rib fracture Compression fracture of L2 Left patella fracture Ambulatory dysfunction Fall DVT prophylaxis Thrombocytosis Hypochloremia Acute hyponatremia Unsteady gait Signs and symptoms involving cognition Numbness of left foot Colon cancer screening Surgical History History of tubal ligation Family History Sister Breast cancer Father Myocardial infarction Other No pertinent family history Denies family history of Colon cancer Ovarian cancer Prostate cancer Social History Smoking Status: Never smoker Tobacco Type: Declines Second Hand Exposure: No; Do You Dip or Chew Tobacco: No; Hx Alcohol Use: No Hx Substance Use: No Preferred Language: Yi Communication Ability: Effective Visual Impairment: No Limitations Hearing Ability: Normal Bowling Ball Marker Required: No Beliefs That Will Affect Care: None marital status: Current Living Situation: Spouse Current Living Situation Comment: HOME HEALTH AIDE Feels Safe at Home: Yes Seatbelt Use: always Assistive Devices: Cane, Walker and Wheelchair Physical Exam Physical Exam: On exam she is pleasant she is able to move about the bed without evidence of gross antalgia. There is marked tenderness palpation of the left SI joint compared to the right. There is no pain to palpation or percussion of the thoracolumbar junction. She is neurologically intact to the lower extremities. Results & Data Vital Signs (Past 12 Hours) Vital Signs Temp Pulse Resp BP Pulse Ox O2 Del Method 11/17/24 07:25 36.9 C 94 H 18 160/83 H 95 Room Air (1) Lumbar compression fracture Encounter type: initial encounter Lumbar vertebra fracture level: L1 Qualified Code(s): S32.010A - Wedge compression fracture of first lumbar vertebra, initial encounter for closed fracture
--- NOTE | 2024-11-17 14:55 | Hospitalist Progress Note ---
Date of Service November 17, 2024 Assessment & Plan (1) Recurrent falls: (2) Gait disturbance: (3) Compression fx, lumbar spine: Plan: Lumbar CT noted new L1 compression fracture-->approximately 5 mm retropulsion with the impression on the thecal sac of the posterior superior fragment at this level Consult spine surgery MRI lumbar showed acute to subacute L1 compression fracture with 50% loss of vertebral body height and 4 mm of retropulsion which results in moderate central canal narrowing. This indents the right ventral aspect of the cord without cord signal abnormality. chronic L2 compression fracture, moderate degenerative lumbar spine changes, subacute to chronic left sacral ala insufficiency fracture Ortho spine surgeon evaluation noted. No surgical intervention recommended at this time PT and possible interventional pain mgt if needed Awaiting PT/OT eval Pain control (4) Type 2 diabetes mellitus with albuminuria: Plan: Sliding scale insulin Last hemoglobin A1c was 7.7 on 09/26/2023 per our records HbA1c today is 8.2 Carb controlled diet (5) Hypothyroid: Plan: Continue thyroid replacement medication TSH is 2.157 Plan Patient is a DNR/DNI VTE prophylaxis: Heparin I spent a total of 50 minutes coordinating, documenting and providing care for this patient excluding time spent in performance of separately billed services Admission and Anticipated Discharge Date Admission Date: November 16, 2024 Subjective Patient seen and examined Currently reports only low back pain, more in buttock area She wants to use voltaren gel and avoid narcotics as much as possible Denied any other complaints Physical Exam Constitutional: + well hydrated and + thin; no acute dis tress Eyes: PERRL, conjunctivae normal, anicteric sclerae ENMT: external ear and nose normal, oropharynx normal Respiratory: normal respiratory effort, lungs clear to auscultation Cardiovascular: Rate/Rhythm: regular rate and regular rhythm Gastrointestinal (Abdomen): normal bowel sounds, soft, nontender, no hepatosplenomegaly Musculoskeletal: No pedal edema Neurologic: PERRL, EOMI, accommodation nl, no face palsy, no dysarthria Psychiatric: A+Ox3, euthymic affect Results & Data Results & Data Vital Signs (Past 12 Hours) Vital Signs Temp Pulse Resp BP Pulse Ox O2 Del Method 11/17/24 07:25 36.9 C 94 H 18 160/83 H 95 Room Air Laboratory Results Abnormal lab results 11/16/24 11/17/24 11/17/24 Range/Units 21:34 00:03 07:16 WBC 13.43 H 13.79 H (4.8-10.8) K/ul RBC 4.02 L 4.16 L (4.20-5.40) M/uL Hgb 11.4 L 11.4 L (12.0-16.0) g/dl Hct 33.3 L 34.5 L (37.0-47.0) % MPV 9.1 L (9.4-12.4) fL Sodium 131 L 133 L (136-145) mmol/L Chloride 97 L 97 L (98-107) mmol/L Creatinine 0.54 L 0.54 L (0.6-1.2) mg/dl BUN/Creatinine Ratio 24.1 H (10-20) Glucose 150 H 157 H (70-99(Fasting)) mg/dl POC Glucose 196 H (70-99) mg/dl Hemoglobin A1c 8.2 H (4.5-5.6) % 11/17/24 11/17/24 Range/Units 07:46 11:41 WBC (4.8-10.8) K/ul RBC (4.20-5.40) M/uL Hgb (12.0-16.0) g/dl Hct (37.0-47.0) % MPV (9.4-12.4) fL Sodium (136-145) mmol/L Chloride (98-107) mmol/L Creatinine (0.6-1.2) mg/dl BUN/Creatinine Ratio (10-20) Glucose (70-99(Fasting)) mg/dl POC Glucose 178 H 198 H (70-99) mg/dl Hemoglobin A1c (4.5-5.6) %
[2024-11-17] MEDS: LIDOCAINE 5% 1 PATCH TD SCH (17:13)
--- OUTSIDE RECORDS SUMMARY | 2024-11-17 18:08 | External Medical Summary | Summary of Care ---
Author Name Unknown Organization [facility] Address [address] [place] [address] Phone [phone] Care Team Providers Care Advertising Space Clerk Name Role Phone Tabitha Hall MD Primary Care Provider + Reason for Visit * Reason Comments eRx-Medication Refill Encounter Details Date Type Department Care Team (Late st Contact Info) Description 11/16/2024 Refill General Internal Medicine [facility] [address] [facility] [place] [address] Tabitha Hall MD [address] [place] [address] Generalized OA; Controlled type 2 diabetes mellitus with hyperglycemia, without long-term current use of insulin ([facility]) Allergies Active Allergy Reactions Criticality Noted Date Comments Ibuprofen 06/11/2016 Alendronate Sodium 08/13/2016 Celecoxib Nausea/vomiting 12/22/2013 Cheese Flavoring Agent (Non-Screening) 08/27/2013 Monosodium Glutamate 08/13/2016 Penicillin G 06/11/2016 Salicylates Unknown 05/17/2021 Sulfa Antibiotics 06/11/2016 documented as of this encounter (statuses as of 11/17/2024) Medications BD Insulin Syringe 25G X 5/8" 1 ML (Insulin Syringe-Needle U-100)Indications:C ontrolled type 2 diabetes mellitus with hyperglycemia, without long-term current use of insulin (HCC),Type 2 diabetes mellitus with hemoglobin A1c goal of less than 8.0% (HCC) Use to inject B-12 injection once a month. 10 Each 1 08/23/20 Active FreeStyle French 3 Blanco DeviceIndications:D M (diabetes mellitus), type 2, uncontrolled, [...] IADH (syndrome of inappropriate ADH production) ([facility]) Take 1 Tablet by mouth in the morning. 90 Tablet 3 11/04/19 25 Active Trulicity 0.75 MG/0.5ML Subcutaneous Solution Auto-injector (Dulaglutide)Indica tions:Controlled type 2 diabetes mellitus with hyperglycemia, without long-term current use of insulin ([facility]) Inject 0.75 mg under the skin [...] without long-term current use of insulin ([facility]) Take 1 Tablet by mouth 2 [...] 11/04/19 25 Active Vitamin D3 50 MCG (1999) Oral TabletIndications:A ge-related osteoporosis with current pathological fracture with routine healing, subsequent encounter TAKE 1 TABLET BY MOUTH IN THE MORNING. 1 DAILY. 30 Tablet 11/11/19 25 Active Acetaminophen 325 MG Oral Tablet [...] as of this encounter (statuses as of 11/17/2024) Active Problems Problem Noted Date Diagnosed Date [...] as of this encounter (statuses as of 11/17/2024) Resolved Problems Problem Noted Date Diagnosed Date Resolved Date DM (diabetes mellitus), type 2, uncontrolled, with hyperosmolarity 06/29/2024 07/13/2024 Dislocation closed, finger, subsequent encounter 09/06/2020 07/13/2024 documented as of this encounter (statuses as of 11/17/2024) Immunizations Name Administration Dates Next Due COVID-19 [...] encounter Miscellaneous Notes * Telephone Encounter - Bonifacio Andrade, [facility] - 11/17/2024 9:12 AM ESTRefused Prescriptions: Disp Refills Magnesium Oxide -Mg Supplement 250 MG Oral*12 Tab*11 Sig: TAKE 1 TABLET BY MOUTH ONCE A DAY ON FRIDAY, FRIDAY, AND FRIDAY ONLY.Refused By: BONIFACIO ANDRADE for Refusal: Duplicate Request Coenzyme Q-10 100 MG Oral Capsule 30 Cap*11 Sig: TAKE 1 CAPSULE BY MOUTH IN THE MORNING.Refused By: BONIFACIO ANDRADE for Refusal: Duplicate RequestOyster Shell Calcium w/D 500-5 MG-MCG Oral*30 Tab*11 Sig: TAKE 1 TABLET BY MOUTH IN THE MORNING. (OSTEOPOROSIS)Refused By: BONIFACIO ANDRADE for Refusal: Duplicate Request Gentle Iron 28-60-0.008-0.4 MG Oral Capsul*12 Cap*11 Sig: TAKE 1 CAPSULE BY MOUTH ONCE A DAY ON FRIDAY, FRIDAY, AND SA TURDAY ONLY.Refused By: BONIFACIO ANDRADE for Refusal: Duplicate Request documented in this encounter Plan of Treatment Upcoming Encounters Date Type Department Care Team (Late st Contact Info) Description 11/19/2024 10:30 AM EST Imaging Radiology [facility] [address] [facility] [address] [facility] [place] [address] 11/19/2024 11:30 AM EST Imaging Vascular Lab, [address] [facility] [place] [address] 12/27/2024 2:20 PM EDT Office Visit Neurology [facility] [address] [place] [address] Alvin Aragon MD [address] [place], [place] [address] 01/05/2025 9:10 AM EDT Office Visit Pharmacy, [facility] [place] [address] [place] [address] Pharmacist1, [facility] [address] [facility] [place] [address] 01/05/2025 9:40 AM EDT Office Visit General Internal Medicine [facility] [address] [place] [address] Tabitha Hall MD [address] [place] [address] 03/23/2025 9:30 AM EDT Nurse [facility] [address] [facility] [place] [phone] Nurse Arlene Gary[address] [place] [address] 05/17/2025 3:00 PM EDT Office Visit General Internal Medicine [facility] [place] [address] [place] [address] Tabitha Hall MD [address] [facility] [place] [address] 10/10/2025 9:40 AM EST Office Visit Rheumatology [facility] [address] [place] [phone] Agustin Erickson MD [address] [place] [address] Health Maintenance Due Date Last Done Comments [...] D LEVEL ONCE IN A LIFETIME-USE SMARTSET# [id number] Completed 06/28/2024, 06/12/2023, 10/24/2021, Additional history exists [...] Diagnosis Generalized OA Generalized osteoarthrosis, unspecified site Controlled type 2 diabetes mellitus with hyperglycemia, without long-term current use of insulin (HCC) documented in this encounter Advance Directives Documents on File Type Date Recorded Patient Thread Spinner Expl anation ANTOINETTE 06/06/2021 ANTOINETTE REESE ORDERS FOR LIFE-SUSTAINING TREATMENT Care Teams Advertising Space Clerk Relationship Specialty Start Date End Date Tabitha Hall MD [address] [place] [address] PCP - General Internal Medicine 07/27/20 documented as of this encounter
[2024-11-17] MEDS: TRAVOPROST Z 0.004% OPH SOLN 2.5 ML BTL OPB SCH (20:32)
[2024-11-17] MEDS: DICLOFENAC SOD 1% GEL 100 GM TUBE EXT PRN (20:42)
[2024-11-18 06:08] LABS: Appearance Urine Clear (Clear); Bacteria Urine Automated None Seen (None Seen); Bilirubin Urine Negative (Negative); Blood Urine Negative (Negative); Cast Urine Automated 0-2 /lpf (0-2); Color Urine Yellow; Epithelial Cell Urine Auto 0-2 /hpf (0-2); Glucose Urine UA Negative (Negative); Ketones Urine Negative (Negative); Leukocyte Esterase Urine 1+ (Negative); Nitrite Urine Negative (Negative); Protein Urine Trace (Negative); RBC Urine Automated 0-2 /hpf (0-2); Specific Gravity Urine 1.007 (1.000-1.030); Urobilinogen Urine Negative (Negative)
[2024-11-18 07:18] LABS: Hematocrit (blood only) 33.6 % (37.0-47.0); Hemoglobin 11.2 g/dl (12.0-16.0); Mean Corpuscular Hemoglobin 27.3 pg (25.0-34.0); Mean Corpuscular Hgb Conc 33.3 g/dL (32.0-36.0); Mean Corpuscular Volume 81.8 fL (80.0-100.0); Mean Platelet Volume 9.3 fL (9.4-12.4); Platelet Count 312 K/uL (130-400); RDW Standard Deviation 38.5 fL (36.4-46.3); Red Blood Count 4.11 M/uL (4.20-5.40); White Blood Count 9.48 K/ul (4.8-10.8)
[2024-11-18 07:53] LABS: Calcium 8.7 mg/dl (8.6-10.3); Creatinine Clr Calc Pharmacy 45.7 ml/min; Potassium 4.3 mmol/L (3.5-5.1)
--- NOTE | 2024-11-18 15:04 | Ultrasound Report ---
CAROTID ARTERY ULTRASOUND CLINICAL HISTORY: Dizziness COMPARISON STUDY: Carotid ultrasound September 25, 2023. TECHNIQUE: Real-time, grayscale, and color Doppler sonography of the carotid and vertebral arteries w as performed. Images were viewed in the transverse and longitudinal planes. FINDINGS: There is mild atherosclerotic plaque. Velocity measurements are listed below. COMMON CAROTID PEAK SYSTOLIC VELOCITY (CM/S): RIGHT 50 LEFT 61 ICA PEAK SYSTOLIC VELOCITY (CM/S): RIGHT 49 LEFT 42 Systolic ratios between the internal to common carotid artery is normal. Antegrade flow is seen in the vertebral arteries. The external carotid arteries are patent. IMPRESSION: No evidence for a hemodynamically significant stenosis. ACT 112: Negative or not required by law. Electronically signed by: Robert Amaral M.D. 11/18/2024 3:02 PM
--- NOTE | 2024-11-18 15:33 | Hospitalist Progress Note ---
Date of Service November 18, 2024 Assessment & Plan (1) Recurrent falls: (2) Gait disturbance: (3) Compression fx, lumbar spine: Plan: Lumbar CT noted new L1 compression fracture-->approximately 5 mm retropulsion with the impression on the thecal sac of the posterior superior fragment at this level Consult spine surgery MRI lumbar showed acute to subacute L1 compression fracture with 50% loss of vertebral body height and 4 mm of retropulsion which results in moderate central canal narrowing. This indents the right ventral aspect of the cord without cord signal abnormality. chronic L2 compression fracture, moderate degenerative lumbar spine changes, subacute to chronic left sacral ala insufficiency fracture Ortho spine surgeon evaluation noted. No surgical intervention recommended at this time PT and possible interventional pain mgt if needed Pain mgt. Patient reports she wants to avoid opioid as much as possible. She wants to always try tylenol first PT/OT eval noted (4) Type 2 diabetes mellitus with albuminuria: Plan: Sliding scale insulin HbA1c on 11/17/24 is 8.2 Carb controlled diet (5) Hypothyroid: Plan: Continue thyroid replacement medication TSH is 2.157 Plan Patient is a DNR/DNI VTE prophylaxis: Heparin I called as requested by patient. I updated and his caregiver over the phone I spent a total of 50 minutes coordinating, documenting and providing care for this patient excluding time spent in performance of separately billed services Admission and Anticipated Discharge Date Admission Date: November 17, 2024 Subjective Patient seen and examined Reports left sided low back pain, more in buttock area Denied any other complaints Physical Exam Constitutional: + well hydrated and + thin; no acute dis tress Eyes: PERRL, conjunctivae normal, anicteric sclerae ENMT: external ear and nose normal, oropharynx normal Respiratory: normal respiratory effort, lungs clear to auscultation Cardiovascular: Rate/Rhythm: regular rate and regular rhythm Gastrointestinal (Abdomen): normal bowel sounds, soft, nontender, no h epatosplenomegaly Musculoskeletal: No pedal edema Neurologic: PERRL, EOMI, accommodation nl, no face palsy, no dysarthria Psychiatric: A+Ox3, euthymic affect Results & Data Results & Data Vital Signs (Past 12 Hours) Vital Signs Temp Pulse Resp BP Pulse Ox O2 Del Method 11/18/24 07:20 36.5 C 88 16 161/79 H 99 Room Air Laboratory Results Abnormal lab results 11/17/24 11/17/24 11/18/24 Range/Units 16:51 20:59 05:40 RBC (4.20-5.40) M/uL Hgb (12.0-16.0) g/dl Hct (37.0-47.0) % MPV (9.4-12.4) fL Sodium (136-145) mmol/L Creatinine (0.6-1.2) mg/dl Glucose (70-99(Fasting)) mg/dl POC Glucose 174 H 200 H (70-99) mg/dl Urine Protein Trace H (Negative) Ur Leukocyte Esterase 1+ H (Negative) Urine WBC (Auto) 6-10 H (0-5) /hpf 11/18/24 11/18/24 11/18/24 Range/Units 06:44 07:38 11:41 RBC 4.11 L (4.20-5.40) M/uL Hgb 11.2 L (12.0-16.0) g/dl Hct 33.6 L (37.0-47.0) % MPV 9.3 L (9.4-12.4) fL Sodium 130 L (136-145) mmol/L Creatinine 0.57 L (0.6-1.2) mg/dl Glucose 179 H (70-99(Fasting)) mg/dl POC Glucose 176 H 259 H (70-99) mg/dl Urine Protein (Negative) Ur Leukocyte Esterase (Negative) Urine WBC (Auto) (0-5) /hpf
[2024-11-19] MEDS: LEVOTHYROXINE SODIUM 25 MCG TABLET PO SCH (05:51)
--- NOTE | 2024-11-19 12:04 | Hospitalist Progress Note ---
Date of Service November 19, 2024 Assessment & Plan (1) Recurrent falls: (2) Gait disturbance: (3) Compression fx, lumbar spine: Plan: Lumbar CT noted new L1 compression fracture-->approximately 5 mm retropulsion with the impression on the thecal sac of the posterior superior fragment at this level Consult spine surgery MRI lumbar showed acute to subacute L1 compression fracture with 50% loss of vertebral body height and 4 mm of retropulsion which results in moderate central canal narrowing. This indents the right ventral aspect of the cord without cord signal abnormality. chronic L2 compression fracture, moderate degenerative lumbar spine changes, subacute to chronic left sacral ala insufficiency fracture Ortho spine surgeon evaluation noted. No surgical intervention recommended at this time PT and possible interventional pain mgt if needed Pain mgt. Patient reports she wants to avoid opioid as much as possible. 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: Plan: Sliding scale insulin HbA1c on 11/17/24 is 8.2 Carb controlled diet (5) Hypothyroid: Plan: Continue thyroid replacement medication TSH is 2.157 Plan Patient is a DNR/DNI VTE prophylaxis: Heparin On 11/18/24, I called and his caregiver and updated them. Caregiver noted patient has recurrent dizziness and that she was initially on BP meds but were stopped due to BP/dizziness Orthostatic vitals today- Supine 137/80, Sitting 157/85, Standing 146/79 Carotid doppler did not show any hemodynamically significant stenosis I spent a total of 40 minutes coordinating, documenting and providing care for this patient excluding time spent in performance of separately billed services Admission and Anticipated Discharge Date Admission Date: November 17, 2024 Subjective Patient seen and examined Reports left sided low back pain, more in buttock area Denied any other complaints Physical Exam Constitutional: + well hydrated and + thin; no acute dis tress Eyes: PERRL, conjunctivae normal, anicteric sclerae ENMT: external ear and nose normal, oropharynx normal Respiratory: normal respiratory effort, lungs clear to auscultation Cardiovascular: Rate/Rhythm: regular rate and regular rhythm Gastrointestinal (Abdomen): normal bowel sounds, soft, nontender, no hepatosplenomegaly Musculoskeletal: No pedal edema Neurologic: PERRL, EOMI, accommodation nl, no face palsy, no dysarthria Psychiatric: A+Ox3, euthymic affect Results & Data Results & Data Vital Signs (Past 12 Hours) Vital Signs Temp Pulse Resp BP Pulse Ox O2 Del Method 11/19/24 07:03 36.4 C L 94 H 16 189/82 H 96 Room Air Laboratory Results Abnormal lab results 11/18/24 11/18/24 11/19/24 Range/Units 16:58 20:29 07:46 POC Glucose 130 H 270 H 167 H (70-99) mg/dl 11/19/24 Range/Units 11:38 POC Glucose 191 H (70-99) mg/dl
--- NOTE | 2024-11-19 12:42 | Pain Management Consultation ---
Date of Consultation November 19, 2024 Assessment & Plan (1) Lumbar compression fracture: Encounter type: initial encounter Lumbar vertebra fracture level: L1 Qualified Code(s): S32.010A - Wedge compression fracture of first lumbar vertebra, initial encounter for closed fracture Plan Patient does have a fracture at L1 and left sacral ala fractures. I have asked for Orthotics to fit the patient for an LSO back brace. Patient is comfortable using Tylenol for pain. She does have Oxycodone ordered if needed for breakthrough pain. Nothing to offer interventionally at this time. She is comfortable with this plan. Will sign off on the patient. Please contact with any questions or concerns. History of Present Illness Attending Physician: Li Dent MD History of Present Illness This is an 84 female that has been admitted for a fall that occurred at [facility]. She was found to have an L1 compression fracture as well as a left sacral insufficiency fracture. She has been receiving Tylenol with adequate pain relief. No radicular symptoms. Dr. Bo did see her yesterday and surgical intervention was not recommended. Pain is rated 2/10 currently. She does have Oxycodone ordered but is not comfortable taking it as it makes her drowsy. She is able to stand and walk around the room with assistance. Patient denies any complaints and feels as though her pain is ok for discharge back to [facility]. No bowel/bladder incontinence, saddle anesthesia, foot drop. Case discussed with Dr. Jessenia Daniel Allergies Allergy/AdvReac Type Severity Reaction Status Date / Time salicylates Allergy Severe HIVES Verified 11/16/24 21:36 monosodium glutamate Allergy Mild Unknown Verified 11/16/24 21:36 Penicillins Allergy Mild Unknown Verified 11/16/24 21:36 Sulfa (Sulfonamide Allergy Mild Unknown Verified 11/16/24 21:36 Antibiotics) alendronate sodium Allergy Unknown UNKNOWN Verified 02/16/24 08:15 aspirin Allergy Unknown Hives Verified 11/16/24 21:36 Home Medications Medication Instructions Recorded Confirmed Type ascorbic acid (vitamin C) 500 mg 500 mg PO DAILY 06/23/19 11/16/24 History tablet cholecalciferol (vitamin D3) 50 2,000 units PO QAM 06/23/19 11/16/24 History mcg (2,000 unit) tablet travoprost 0.004 % eye drops 1 drops OPB HS #3 mL 06/23/19 11/16/24 History diclofenac sodium 1 % topical gel 4 g topical TID PRN Other 08/07/20 11/16/24 History sodium chloride 1 gram tablet 1 g PO DAILY 10/02/20 11/16/24 History coenzyme Q10 100 mg capsule 100 mg PO DAILY 03/21/21 11/16/24 History (CoQ-10) duloxetine 60 mg capsule,delayed 60 mg PO DAILY 03/21/21 11/16/24 History release metformin 500 mg tablet,extended 500 mg PO BID 03/21/21 11/16/24 History release 24 hr cyanocobalamin (vitamin B-12) 1,000 mcg IM MONTHLY 09/25/23 11/16/24 History 1,000 mcg/mL injection kit dulaglutide 0.75 mg/0.5 mL 0.75 mg subcut .ON HOLD 09/25/23 11/16/24 History subcutaneous pen injector (Trulicity) rosuvastatin 5 mg tablet 5 mg PO 3XWK 09/25/23 11/16/24 History duloxetine 30 mg capsule,delayed 30 mg PO DAILY 06/30/24 11/16/24 History release Iron Glycinate Oral Capsule 28 mg PO 3XWK 11/16/24 11/16/24 History acetaminophen 325 mg tablet 650 mg PO Q4 PRN Pain 11/16/24 11/16/24 History acetaminophen 325 mg tablet 650 mg PO Q4 PRN TEMP 100F OR ABOVE 11/16/24 11/16/24 History calcium 500 mg (as 1 tab PO DAILY 11/16/24 11/16/24 History carbonate)-vitamin D3 5 mcg (200 unit) tablet cyanocobalamin (vitamin B-12) 100 100 mcg PO DAILY 11/16/24 11/16/24 History mcg tablet (Vitamin B-12) diclofenac sodium 1 % topical gel 2 g topical Q6 PRN Pain 11/16/24 11/16/24 History diclofenac sodium 1 % topical gel 2 g topical TID 32GM/24HR 11/16/24 11/16/24 History hydrocortisone 1 % topical cream 1 applic topical Q12 PRN BLE FOR 11/16/24 11/16/24 History ITCHING levothyroxine 25 mcg tablet 25 mcg PO 3XWK 11/16/24 11/16/24 History levothyroxine 50 mcg tablet 50 mcg PO 4XWK 11/16/24 11/16/24 History magnesium 250 mg tablet 250 mg PO 3XWK 11/16/24 11/16/24 History Pain History Chief Complaint Chief Complaint: Back pain Patient History Medical History Multiple fractures Compression fx, lumbar spine Closed rib fracture Weakness Fall Closed tibial fracture Rib fracture Compression fracture of L2 Left patella fracture Ambulatory dysfunction Fall DVT prophylaxis Thrombocytosis Hypochloremia Acute hyponatremia Unsteady gait Signs and symptoms involving cognition Numbness of left foot Colon cancer screening Surgical History History of tubal ligation Family History Sister Breast cancer Father Myocardial infarction Other No pertinent family history Denies family history of Colon cancer Ovarian cancer Prostate cancer Social History Smoking Status: Never smoker Tobacco Type: Declines Second Hand Exposure: No; Do You Dip or Chew Tobacco: No; Tobacco Cessation Education Requested by Patient: No Hx Alcohol Use: No Hx Substance Use: No Preferred Language: Luxembourger Communication Ability: Effective Visual Impairment: No Limitations Hearing Ability: Normal Java Web Engineer Required: No Beliefs That Will Affect Care: None marital status: Current Living Situation: Spouse Current Living Situation Comment: HOME HEALTH AIDE Other Information That Helps Us Care for You: No Feels Safe at Home: Yes Safety Concerns: Feels Safe At This Time Seatbelt Use: always Assistive Devices: Cane and Walker Physical Exam Physical Exam: GENERAL: This is a thin 84 year old female in no acute distress. Laying supine in the hospital bed. HEAD/FACE: Normocephalic and atraumatic. EYES: No drainage or conjunctival injection. ENT: Nose without bleeding or discharge. Oral mucosa moist. NECK: Full ROM without apparent pain. No swelling or masses noted. RESPIRATORY: Patient with unlabored breathing. No signs of respiratory distress. CHEST/AXILLA: Chest movement symmetrical. No deformities noted. CARDIOVASCULAR: Patients heart rate is regular, with pulse rate as documented. No edema noted. ABDOMEN/GI: No distension BACK: Moves without difficulty. Mild left SI joint tenderness. No midline tenderness No myofascial spasm or trigger points noted. SKIN: [place], warm and dry. No rash noted. MS/EXTREMITY: No swelling, no deformities. Moving extremities appropriately. NEURO: Moderately confused. Speech is fluent. Cranial Nerves are grossly intact. PSYCH: Alert, pleasant, affect is calm Results (Pain Clinic) Diagnostic Review MRI Findings: MRI OF THE LUMBAR SPINE WITHOUT CONTRAST CLINICAL HISTORY: Back pain. Frequent falls. COMPARISON STUDY: Lumbar spine CT November 16, 2024. Lumbar spine CT June 30, 2024. Lumbar spine MRI May 18, 2015. TECHNIQUE: Utilizing a 1.5 Daniella magnet and dedicated coil, multiplanar, multiecho imaging of the lumbar spine was performed without IV contrast. FINDINGS: For purposes of numbering on this exam, the L5-S1 disc space is assigned to axial image 27 of 30. 8 mm of anterolisthesis of L5 on S1 is due to bilateral L5 pars defects. This is unchanged since MRI of May 18, 2015. An old mild L2 compression fractures unchanged since CT of June 30, 2024. There is a moderate compression fracture of the superior endplate of L1 with 50% loss of vertebral body height. There is marrow edema. This fracture is new since CT of June 30, 2024. There is 4 mm of retropulsion at the superior endplate of L1 which results in moderate narrowing of the right aspect of the canal. This indents the right ventral aspect of the cord. No additional lumbar spine fractures are present. No suspicious marrow replacement is present. Subacute to chronic left sacral ala insufficiency fractures present. Moderate multilevel degenerative changes within the lumbar spine are present. L1-2: There is minimal disc bulge. Central canal and neural foramen are patent. There is facet arthrosis. L2-3: There is moderate facet arthrosis. The central canal and neural foramen are patent. L3-4: There is moderate disc space narrowing with facet arthrosis and ligamentous hypertrophy. There is moderate central canal and mild bilateral neural foraminal stenosis. L4-5: Moderate to space narrowing is noted with facet arthrosis and ligamentous hypertrophy. There is mild narrowing of the central canal and left neural foramen. There is moderate right neural foraminal stenosis. L5-S1: Anterolisthesis due to bilateral L5 pars defects is present. There is no central canal stenosis. Severe left and moderate right neural foraminal stenosis is unchanged. IMPRESSION: 1. Acute to subacute L1 compression fracture with 50% loss of vertebral body height and 4 mm of retropulsion which results in moderate central canal narrowing. This indents the right ventral aspect of the cord without cord signal abnormality. 2. Chronic L2 compression fracture. 3. Moderate degenerative changes within the lumbar spine, as described above. 4. No change in anterolisthesis of L5 on S1 due to bilateral L5 pars defects. 5. Subacute to chronic left sacral ala insufficiency fracture. ACT 112: Negative or not required by law. Electronically signed by: Robert Amaral M.D. 11/17/2024 1:[address] Findings: Exam: CT lumbar spine without contrast Reason for exam: Patient fell Previous studies: 06/30/2024 FINDINGS: There is a moderately severe compression fracture of L1 newly occurring since the previous study of 06/30/2024 and may relate to the current trauma. There is retropulsion of the posterior-superior fragment by approximately 5 mm causing anterior impression on the thecal sac at this level. Moderate compression fracture of L2 is stable with mild posterior retropulsion of the posterior-superior fragment at that level as well. The L3, L4 and L5 vertebral bodies are intact. There is desiccation of the intervertebral disks at all other levels. Degenerative facet arthropathy is seen. Additionally there is a contributory grade 2 spondylolisthesis of L5 on S1. These findings result in the moderate lateral recess and neural foraminal narrowings from the L2 through the S1 levels. There is generalized osteoporosis. Extensive degenerative disc and joint disease is seen in the lower thoracic spine as well. IMPRESSION: 1. Moderately severe compression fracture of L1, newly occurring since a previous study of 06/30/2024 may relate to the current trauma. There is approximately 5 mm retropulsion with the impression on the thecal sac of the posterior superior fragment at this level. 2. Stable compression fracture of L2. 3. Stable spondylolisthesis of L5 on S1. 4. Stable extensive degenerative disc and joint disease with the elements of lateral recess and neural foraminal stenosis. 5. MRI study recommended for better evaluation of the chronicity of the fractures and the effects on the thecal sac, spinal cord and neural elements. Electronically signed by Umair Doll 11-16-2024 7:43 PM Dictated: 11/16/24 1802
[2024-11-19] MEDS: POLYETHYLENE (MIRALAX) 17 GM PACK PO PRN (18:39)
[2024-11-20] MEDS: CYANOCOBALAMIN 1000 MCG/ML VIAL IM SCH (08:55)
--- NOTE | 2024-11-20 10:58 | Hospitalist Progress Note ---
Date of Service November 20, 2024 Assessment & Plan (1) Recurrent falls: (2) Gait disturbance: (3) Compression fx, lumbar spine: Plan: Lumbar CT noted new L1 compression fracture-->approximately 5 mm retropulsion with the impression on the thecal sac of the posterior superior fragment at this level Consult spine surgery MRI lumbar showed acute to subacute L1 compression fracture with 50% loss of vertebral body height and 4 mm of retropulsion which results in moderate central canal narrowing. This indents the right ventral aspect of the cord without cord signal abnormality. chronic L2 compression fracture, moderate degenerative lumbar spine changes, subacute to chronic left sacral ala insufficiency fracture Age-related osteoporosis with current pathologic fracture, L1 vertebra Ortho spine surgeon evaluation noted. No surgical intervention recommended at this time PT and possible interventional pain mgt if needed Pain mgt. Patient reports she wants to avoid opioid as much as possible. 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 I explained that [facility] do not have SNF bed until next week and we cannot safely discharge home. I discussed with RN. Continue to reorient I changed voltaren gel to scheduled for now as patient did not get it yesterday. When I tried to explain that it was prn that she can get it as needed/on request, she stated she is not the Dr and shouldn't be requesting. I also explained that PT had seen on 11/17 and 11/19, she stated PT did not. Will monitor. Call to to update him was unanswered. Will try again later Patient is a DNR/DNI VTE prophylaxis: Heparin I spent a total of 50 minutes coordinating, documenting and providing care for this patient excluding time spent in performance of separately billed services Admission and Anticipated Discharge Date Admission Date: November 17, 2024 Subjective Patient seen and examined Have some confusion this AM. Believes she has not been getting care, that therapy has not seen her and that she has not been getting the voltaren gel for days. No new complaints reported Physical Exam Constitutional: + well hydrated and + thin; no acute dis tress Eyes: PERRL, conjunctivae normal, anicteric sclerae ENMT: external ear and nose normal, oropharynx normal Respiratory: normal respiratory effort, lungs clear to auscultation Cardiovascular: Rate/Rhythm: regular rate and regular rhythm Gastrointestinal (Abdomen): normal bowel sounds, soft, nontender, no hepatosplenomegaly Neurologic: PERRL, EOMI, accommodation nl, no face palsy, no dysarthria Psychiatric: Oriented to person and place,+confusion Results & Data Results & Data Vital Signs (Past 12 Hours) Vital Signs Temp Pulse Resp BP Pulse Ox O2 Del Method 11/20/24 07:45 36.6 C 88 16 151/77 H 97 Room Air Laboratory Results Abnormal lab results 11/19/24 11/19/24 11/19/24 Range/Units 11:38 16:33 20:38 POC Glucose 191 H 116 H 190 H (70-99) mg/dl 11/20/24 Range/Units 07:48 POC Glucose 191 H (70-99) mg/dl
[2024-11-20] MEDS: DICLOFENAC SOD 1% GEL 100 GM TUBE EXT SCH (13:18)
[2024-11-21 06:45] LABS: Hemoglobin 11.9 g/dl (12.0-16.0); Mean Corpuscular Hemoglobin 27.7 pg (25.0-34.0); Mean Corpuscular Hgb Conc 33.1 g/dL (32.0-36.0); Mean Corpuscular Volume 83.7 fL (80.0-100.0); Mean Platelet Volume 9.3 fL (9.4-12.4); Platelet Count 358 K/uL (130-400); RDW Coefficient of Variation 12.9 % (11.5-14.5); RDW Standard Deviation 38.8 fL (36.4-46.3); White Blood Count 9.21 K/ul (4.8-10.8)
[2024-11-21 07:07] LABS: BUN Creatinine Ratio 13.3 (10-20); Creatinine Clr Calc Pharmacy 43.5 ml/min; Magnesium 2.1 mg/dl (1.7-2.4); Phosphorus 3.4 mg/dl (2.5-4.9); Potassium 4.8 mmol/L (3.5-5.1)
--- NOTE | 2024-11-21 13:15 | Hospitalist Progress Note ---
Date of Service November 21, 2024 Assessment & Plan (1) Recurrent falls: (2) Gait disturbance: (3) Compression fx, lumbar spine: Plan: Lumbar CT noted new L1 compression fracture-->approximately 5 mm retropulsion with the impression on the thecal sac of the posterior superior fragment at this level Consult spine surgery MRI lumbar showed acute to subacute L1 compression fracture with 50% loss of vertebral body height and 4 mm of retropulsion which results in moderate central canal narrowing. This indents the right ventral aspect of the cord without cord signal abnormality. chronic L2 compression fracture, moderate degenerative lumbar spine changes, subacute to chronic left sacral ala insufficiency fracture Age-related osteoporosis with current pathologic fracture, L1 vertebra Ortho spine surgeon evaluation noted. No surgical intervention recommended at this time PT and possible interventional pain mgt if needed Pain mgt. Patient reports she wants to avoid opioid as much as possible. 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: Plan: Sliding scale insulin HbA1c on 11/17/24 is 8.2 Carb controlled diet (5) Hypothyroid: Plan: Continue thyroid replacement medication TSH is 2.157 Plan Patient is a DNR/DNI VTE prophylaxis: Heparin I spent a total of 35 minutes coordinating, documenting and providing care for this patient excluding time spent in performance of separately billed services Admission and Anticipated Discharge Date Admission Date: November 17, 2024 Subjective Patient seen and examined Reports low back pain is improved No new complaints today Physical Exam Constitutional: + well hydrated and + thin; no acute dis tress Eyes: PERRL, conjunctivae normal, anicteric sclerae ENMT: external ear and nose normal, oropharynx normal Respiratory: normal respiratory effort, lungs clear to auscultation Cardiovascular: Rate/Rhythm: regular rate and regular rhythm Gastrointestinal (Abdomen): normal bowel sounds, soft, nontender, no hepatosplenomegaly Musculoskeletal: No pedal edema Neurologic: PERRL, EOMI, accommodation nl, no face palsy, no dysarthria Psychiatric: A+Ox3, euthymic affect Results & Data Results & Data Vital Signs (Past 12 Hours) Vital Signs Temp Pulse Resp BP Pulse Ox O2 Del Method 11/21/24 11:54 36.6 C 96 H 18 160/80 H 98 Room Air 11/21/24 07:22 36.6 C 86 18 156/81 H 98 Room Air Laboratory Results Abnormal lab results 11/20/24 11/20/24 11/21/24 Range/Units 16:26 20:02 06:00 Hgb 11.9 L (12.0-16.0) g/dl Hct 36.0 L (37.0-47.0) % MPV 9.3 L (9.4-12.4) fL Sodium 132 L (136-145) mmol/L Glucose 168 H (70-99(Fasting)) mg/dl POC Glucose 111 H 230 H (70-99) mg/dl 11/21/24 11/21/24 11/21/24 Range/Units 07:46 08:05 11:32 Hgb (12.0-16.0) g/dl Hct (37.0-47.0) % MPV (9.4-12.4) fL Sodium (136-145) mmol/L Glucose (70-99(Fasting)) mg/dl POC Glucose 177 H 171 H 219 H (70-99) mg/dl
--- NOTE | 2024-11-22 12:26 | Hospitalist Progress Note ---
Date of Service November 22, 2024 Assessment & Plan (1) Recurrent falls: (2) Gait disturbance: (3) Compression fx, lumbar spine: Plan: Lumbar CT noted new L1 compression fracture-->approximately 5 mm retropulsion with the impression on the thecal sac of the posterior superior fragment at this level Consult spine surgery MRI lumbar showed acute to subacute L1 compression fracture with 50% loss of vertebral body height and 4 mm of retropulsion which results in moderate central canal narrowing. This indents the right ventral aspect of the cord without cord signal abnormality. chronic L2 compression fracture, moderate degenerative lumbar spine changes, subacute to chronic left sacral ala insufficiency fracture Age-related osteoporosis with current pathologic fracture, L1 vertebra Ortho spine surgeon evaluation noted. No surgical intervention recommended at this time PT and possible interventional pain mgt if needed Pain mgt. Patient reports she wants to avoid opioid as much as possible. 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 Son who is at bedside today noted that happens sometimes in the hospital. Patient is a DNR/DNI VTE prophylaxis: Heparin Patient is medically stable for dc once placement is available I spent a total of 35 minutes coordinating, documenting and providing care for this patient excluding time spent in performance of separately billed services Admission and Anticipated Discharge Date Admission Date: November 17, 2024 Subjective Patient seen and examined Reports no new complaints Reports low back pain is well controlled Physical Exam Constitutional: + well hydrated and + thin; no acute dis tress Eyes: PERRL, conjunctivae normal, anicteric sclerae ENMT: external ear and nose normal, oropharynx normal Respiratory: normal respiratory effort, lungs clear to auscultation Cardiovascular: Rate/Rhythm: regular rate and regular rhythm Gastrointestinal (Abdomen): normal bowel sounds, soft, nontender, no hepatosplenomegaly Musculoskeletal: No pedal edema Neurologic: PERRL, EOMI, accommodation nl, no face palsy, no dysarthria Psychiatric: A+Ox3, euthymic affect Results & Data Results & Data Vital Signs (Past 12 Hours) Vital Signs Temp Pulse Resp BP Pulse Ox O2 Del Method 11/22/24 07:28 36.6 C 97 H 18 187/99 H 97 Room Air
[2024-11-22] MEDS ORDERED: ONDANSETRON INJ 2 MG/ML 2 ML VIAL IV PRN (17:00)
[2024-11-23 08:22] LABS: Hematocrit (blood only) 40.8 % (37.0-47.0); Hemoglobin 13.5 g/dl (12.0-16.0); Mean Corpuscular Hemoglobin 27.3 pg (25.0-34.0); Mean Corpuscular Hgb Conc 33.1 g/dL (32.0-36.0); Mean Corpuscular Volume 82.4 fL (80.0-100.0); Mean Platelet Volume 8.9 fL (9.4-12.4); Platelet Count 427 K/uL (130-400); RDW Coefficient of Variation 13.1 % (11.5-14.5); RDW Standard Deviation 38.9 fL (36.4-46.3); Red Blood Count 4.95 M/uL (4.20-5.40); White Blood Count 15.17 K/ul (4.8-10.8)
[2024-11-23 08:36] LABS: BUN Creatinine Ratio 16.4 (10-20); Calcium 9.4 mg/dl (8.6-10.3); Creatinine Clr Calc Pharmacy 38.9 ml/min; Potassium 4.4 mmol/L (3.5-5.1)
[2024-11-23 09:43] LABS: Adenovirus PCR Not Detected (NotDetected); Bordetella parapertussis PCR Not Detected (NotDetected); Bordetella pertussis PCR Not Detected (NotDetected); Chlamydia pneumoniae PCR Not Detected (NotDetected); Coronavirus 229E PCR Not Detected (NotDetected); Coronavirus CoV-2 (COVID19)PCR Not Detected (NotDetected); Coronavirus HKU1 PCR Not Detected (NotDetected); Coronavirus NL63 PCR Not Detected (NotDetected); Coronavirus OC43PCR Not Detected (NotDetected); Human Metapneumovirus PCR Not Detected (NotDetected); Influenza A PCR Not Detected (NotDetected); Influenza B PCR Not Detected (NotDetected); Mycoplasma pneumoniae PCR Not Detected (NotDetected); Parainfluenza Virus 1 PCR Not Detected (NotDetected); Parainfluenza Virus 2 PCR Not Detected (NotDetected); Parainfluenza Virus 3 PCR Not Detected (NotDetected); Parainfluenza Virus 4 PCR Not Detected (NotDetected); Respiratory Syncytial VirusPCR Not Detected (NotDetected); Rhinovirus/Enterovirus PCR Not Detected (NotDetected)
--- NOTE | 2024-11-23 11:13 | CT Scan Report ---
CT head/brain wo con CLINICAL HISTORY: AMS, H/o fall. TECHNIQUE: Multiple axial CT images of the head were obtained without contrast. A dose lowering tech nique was utilized adhering to the principles of ALARA. CT DOSE: 547.75 mGy.cm COMPARISON: 06/30/2024 FINDINGS: The CT findings are stable. There is no acute traumatic intracranial abnormality identified . There is no intra or extra-axial mass, hemorrhage, or abnormal fluid collection identified. The honorio tricles remain distended due to disproportionate to the superficial cortical sulci. There is diminish ed periventricular white matter brain attenuation. There is no midline shift. The bone windows are ne gative. IMPRESSION: No acute intracranial process identified. Consider NPH in the appropriate clinical contex t. ACT 112: Negative or not required by law. The above report was generated using voice recognition software. It may contain grammatical, syntax o r spelling errors. Electronically signed by: Edie De Souza M.D. 11/23/2024 11:11 AM
--- NOTE | 2024-11-23 13:17 | Hospitalist Progress Note ---
Date of Service November 23, 2024 Assessment & Plan (1) Recurrent falls: (2) Gait disturbance: (3) Compression fx, lumbar spine: Plan: Lumbar CT noted new L1 compression fracture-->approximately 5 mm retropulsion with the impression on the thecal sac of the posterior superior fragment at this level Consult spine surgery MRI lumbar showed acute to subacute L1 compression fracture with 50% loss of vertebral body height and 4 mm of retropulsion which results in moderate central canal narrowing. This indents the right ventral aspect of the cord without cord signal abnormality. chronic L2 compression fracture, moderate degenerative lumbar spine changes, subacute to chronic left sacral ala insufficiency fracture Age-related osteoporosis with current pathologic fracture, L1 vertebra Ortho spine surgeon evaluation noted. No surgical intervention recommended at this time PT and possible interventional pain mgt if needed Pain mgt. Patient reports she wants to avoid opioid as much as possible. 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 CT head did not show any acute abnormalities Caregiver also reported her PCP had stopped her BP due to drop in BP and her recurrent falls BP has been allowed to run higher Patient is a DNR/DNI VTE prophylaxis: Heparin Patient is medically stable for dc once placement is available I spent a total of 35 minutes coordinating, documenting and providing care for this patient excluding time spent in performance of separately billed services Admission and Anticipated Discharge Date Admission Date: November 17, 2024 Subjective Patient seen and examined RN reported patient had reported not feeling well earlier without any specific complaints At this time, patient denies any complaints. Reports low back pain is improved Physical Exam Constitutional: + well hydrated and + thin; no acute dis tress Eyes: PERRL, conjunctivae normal, anicteric sclerae ENMT: external ear and nose normal, oropharynx normal Respiratory: normal respiratory effort, lungs clear to auscultation Cardiovascular: Rate/Rhythm: regular rate and regular rhythm Gastrointestinal (Abdomen): normal bowel sounds, soft, nontender, no hepatosplenomegaly Musculoskeletal: No pedal edema Neurologic: PERRL, EOMI, accommodation nl, no face palsy, no dysarthria Psychiatric: A+Ox3, euthymic affect Results & Data Results & Data Vital Signs (Past 12 Hours) Vital Signs Temp Pulse Resp BP Pulse Ox O2 Del Method 11/23/24 07:30 36.7 C 97 H 18 182/95 H 100 Room Air
[2024-11-24] MEDS ORDERED: PHARMACY GLYCEMIC MGMT CONSULT PRN (13:56)
--- NOTE | 2024-11-24 14:10 | Pharmacy Report ---
Pharmacy Glycemic Short Note 2 - Date of Service November 24, 2024 - Glycemic Short BSG Results (Last 24 hours): 11/23/24 11/23/24 11/24/24 16:55 21:08 07:48 POC Glucose 180 H 191 H 232 H 11/24/24 11/24/24 11:36 11:37 POC Glucose 307 H* 318 H* OUTPATIENT ANTIDIABETIC REGIMEN: * Metformin 500 mg PO BIDM HbA1c: 8.2% (11/17/24) ASSESSMENT: * LP is an 84 year old female admitted on 11/16/24 w/ new compression fracture s/p recurrent falls * Pharmacy consulted for glycemic management today on 11/24 due to ongoing hyperglycemia * Patient has been receiving 10 units of basal and ~10 units of bolus/day * Will be conservative with initial insulin changes given patient's low body weight and hx of falls * Minor bolus insulin adjustment + basal dose increase today PLAN FOR INPATIENT GLYCEMIC CONTROL: * Hold outpatient oral diabetes medications * Basal insulin * Lantus 5 units SC this AM * Lantus 10 units SC x 1 this afternoon * Reassess in AM * Bolus insulin * NovoLog per scale ACHS or Q6hrs while NPO * Goal Range: Low 120 mg/dL - High 150 mg/dL * Correction Factor: 40 mg/dL/unit * Nutritional / Prandial insulin per carb ratio of 1 unit per 15 grams CHO consumed
[2024-11-24] MEDS: LANTUS PER UNIT CHARGE SQ ONE (15:30)
[2024-11-24 15:56] LABS: BUN Creatinine Ratio 30.2 (10-20); Calcium 10.5 mg/dl (8.6-10.3); Creatinine Clr Calc Pharmacy 30.3 ml/min; Potassium 4.6 mmol/L (3.5-5.1)
--- NOTE | 2024-11-24 17:21 | Hospitalist Progress Note ---
Date of Service November 24, 2024 Assessment & Plan (1) Recurrent falls: (2) Gait disturbance: (3) Compression fx, lumbar spine: Plan: Per admitting service notes with addendum: Lumbar CT noted new L1 compression fracture-->approximately 5 mm retropulsion with the impression on the thecal sac of the posterior superior fragment at this level Consult spine surgery MRI lumbar showed acute to subacute L1 compression fracture with 50% loss of vertebral body height and 4 mm of retropulsion which results in moderate central canal narrowing. This indents the right ventral aspect of the cord without cord signal abnormality. chronic L2 compression fracture, moderate degenerative lumbar spine changes, subacute to chronic left sacral ala insufficiency fracture Age-related osteoporosis with current pathologic fracture, L1 vertebra Ortho spine surgeon evaluation noted. No surgical intervention recommended at this time PT and possible interventional pain mgt if needed Pain mgt. Patient reports she wants to avoid opioid as much as possible. 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 CT head did not show any acute abnormalities Caregiver also reported her PCP had stopped her BP due to drop in BP and her recurrent falls BP has been allowed to run higher Patient is a DNR/DNI VTE prophylaxis: Heparin plan of care discussed with patient, her son Brayan in detail and at length all questions answered they are understanding, agreeable, comfortable with the plan of care Admission and Anticipated Discharge Date Admission Date: November 17, 2024 Subjective Follow-up for falls, L1 compression fracture, etc. Seen resting in bed, sitting up, comfortable, not in distress, in good spirits States she has very minimal discomfort on her lower back States she has been ambulating in the room with her walker, but no significant problems Denies chest pain, shortness of breath, palpitations, nausea, dizziness, etc. No other new symptom Review of Systems Review of Systems: all noted and negative except for above Physical Exam Physical Exam: General- oriented x 3, not in distress, speaks in sentences with no effort or accessory muscle use Eyes- anicteric Neck- no JVD Lungs- clear breath sounds bilaterally, no rales/wheezes Heart- normal rate, regular rhythm; no murmurs Abdomen- normal bowel sounds, nondistended, soft, nontender Extremities- no pretibial edema, no calf tenderness Neuro- alert, oriented x 3; no gross focal neurologic deficits Skin- warm & dry Results & Data Results & Data Vital Signs (Past 12 Hours) Vital Signs Temp Pulse Resp BP Pulse Ox O2 Del Method 11/24/24 15:15 36.5 C 95 H 16 143/87 H 97 Room Air 11/24/24 07:19 36.6 C 97 H 16 115/73 99 Room Air all noted and reviewed including below
--- NOTE | 2024-11-24 20:12 | Communication Note ---
Date of Service: November 24, 2024
[2024-11-24] MEDS: hydrALAZINE HCL 20 MG/ML VIAL IV ONE (20:58)
[2024-11-24] MEDS: ACETAMINOPHEN 1,000 MG/100 ML VIAL IV STA (20:59)
[2024-11-24 21:09] LABS: Albumin Globulin Ratio 1.6 (0.9-2); Albumin Level 4.2 gm/dl (3.4-5.0); Bilirubin,Total 0.4 mg/dl (0.2-1.0); Calcium 9.7 mg/dl (8.6-10.3); Creatinine Clr Calc Pharmacy 36.7 ml/min; Globulin 2.7 gm/dl (2.5-4.0); Potassium 4.6 mmol/L (3.5-5.1); Total Protein 6.9 gm/dl (6.0-8.3)
--- NOTE | 2024-11-24 23:53 | Ultrasound Report ---
Exam(s): US GALLBLADDER EXAM: US Abdomen Limited, Gallbladder CLINICAL HISTORY: Reason for exam: upper abd pain. TECHNIQUE: Real-time ultrasound of the right upper quadrant with image documentation. COMPARISON: No relevant prior studies available. FINDINGS: Liver: There is diffuse hepatic steatosis with focal fatty sparing adjacent to the gallbladder fossa. No hepatic mass. No intrahepatic or extrahepatic bile duct dilatation is noted. Gallbladder: There is suggestion of a small amount of nonshadowing biliary sludge. No shadowing gallstones, gallbladder wall thickening or pericholecystic fluid identified. Common bile duct: Unremarkable as visualized. No stones. No dilation. Pancreas: Unremarkable as visualized. IMPRESSION: 1. There is diffuse hepatic steatosis. 2. There is suggestion of a small amount of nonshadowing biliary sludge. No shadowing gallstones, gallbladder wall thickening or pericholecystic fluid identified. Electronically signed by: Bridger Ortiz MD 11/24/24 23:52 PM
[2024-11-25 07:30] VITALS: BP 169/83; PULSE 97; RESP 18; TEMP 98.2; O2SAT 100
[2024-11-25] MEDS: LANTUS PER UNIT CHARGE SQ ONE (08:30)
--- NOTE | 2024-11-25 12:00 | Discharge Summary ---
Discharge Summary Date of Service November 25, 2024 Principal Dx & Hospital Course #1 = Principal Diagnosis (1) Recurrent falls: (2) Gait disturbance: (3) Compression fx, lumbar spine: Per admitting service notes with addendum: Lumbar CT noted new L1 compression fracture-->approximately 5 mm retropulsion with the impression on the thecal sac of the posterior superior fragment at this level Consult spine surgery MRI lumbar showed acute to subacute L1 compression fracture with 50% loss of vertebral body height and 4 mm of retropulsion which results in moderate central canal narrowing. This indents the right ventral aspect of the cord without cord signal abnormality. chronic L2 compression fracture, moderate degenerative lumbar spine changes, subacute to chronic left sacral ala insufficiency fracture Age-related osteoporosis with current pathologic fracture, L1 vertebra Ortho spine surgeon evaluation noted. No surgical intervention recommended at this time Pain mgt: Patient reports she wants to avoid opioid as much as possible. PT/OT eval noted CM working on SNF for patient 11/24 PT evaluated patient today, recommend to return to assisted living facility Awaiting acceptance to [facility] 11/25 minimal pain with Tylenol TID and Lidoderm patch discharge on Lidoderm patch daily x 7 days, and PRN Tylenol ALWAYS ambulate with a walker, also press necklace button for assistance with ambulation christie at night discussed and reinforced above with the patient (4) Type 2 diabetes mellitus with albuminuria: Sliding scale insulin provided HbA1c on 11/17/24 is 8.2 Carb controlled diet 11/24 Blood glucose elevated in the 300s Pharmacy glycemic manage consulted 11/25 resume usual meds monitor BSGs closely Chronic hyponatremia, SIADH Sodium stable around 1 29-1 30 Continue salt tablet Monitor closely Hypertension Blood pressure fluctuations noted will avoid antihypertensives in light of history of dizziness, falls related to low BP Continue to monitor closely Abnormal Findings in Imaging Studies CT abdomen: Diffuse atherosclerotic wall calcification of abdominal aorta. Carotid Doppler:There is mild atherosclerotic plaque. Gallbladder US: 1. There is diffuse hepatic steatosis. 2. There is suggestion of a small amount of nonshadowing biliary sludge. No shadowing gallstones, gallbladder wall thickening or pericholecystic fluid identified. Please refer to full report in the Ordered Studies section Further work up, management, and ff up as outpatient (5) Hypothyroid: Continue thyroid replacement medication TSH is 2.157 Plan Per Caregiver who is at her bedside, patient's fall was unwitnessed and she was concerned with her increased delirium episodes. CT head did not show any acute abnormalities Caregiver also reported her PCP had stopped her BP due to drop in BP and her recurrent falls BP has been allowed to run higher Patient is a DNR/DNI VTE prophylaxis: Heparin given plan of care discussed with patient, her son Brayan in detail and at length all questions answered they are understanding, agreeable, comfortable with the plan of care Notes For Next Care Provider Medication Changes From Visit Lidoderm patch to lower back daily x 1 week PRN Tylenol for pain Admission HPI Per Admitting Provider Lilibeth Luann is an 84y/o F with a prior history significant for DM type II, hypothyroidism, cognitive impairment, chronic hyponatremia secondary to SIADH, senile osteoporosis, generalized osteoarthritis, DDD, glaucoma and depression who presents to the ED tonight after sustaining an unwitnessed fall at [facility] this evening. She complains mainly of back pain but some hip pain as well. Workup in the ED reveals a new L1 compression fracture. There is no evidence of a new hip fracture. 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) is in the personal care section of [facility]. She ambulates usually with a walker. [facility] has no beds on the skilled side until possibly tomorrow. Patient's pain is controlled at present. She does complain of some abdominal distention which is new. She denies nausea, vomiting or diarrhea. Last BM was normal was yesterday. She denies hematochezia. She denies dysuria. Admission Exam Per Admitting Provider General- adult elderly female seen at bedside in the ED, chronic ill appearance Head- atraumatic Eyes- PERRL, EOMI, anicteric ENT- oropharynx clear Neck- supple, no JVD, no adenopathy, no thyromegaly; carotids +2/2, no bruits appreciated Lungs- clear to auscultation and percussion Heart- regular rhythm; no murmur, no gallop, no rub appreciated Abdomen- normal bowel sounds, soft, nontender, no masses or hepatosplenomegaly, mildly distended Extremities- no pretibial edema, no calf tenderness; peripheral pulses intact Neuro- alert, oriented x 3; PERRL, EOMI; no facial palsy; no dysarthria; motor 5/5 bilaterally Musculoskeletal: Tender along the paraspinous musculature and along the lower spine Skin- warm & dry Discharge Exam General- oriented x 3, not in distress, speaks in sentences with no effort or accessory muscle use Eyes- anicteric Neck- no JVD Lungs- clear breath sounds bilaterally, no rales/wheezes Heart- normal rate, regular rhythm; no murmurs Abdomen- normal bowel sounds, nondistended, soft, nontender Extremities- no pretibial edema, no calf tenderness Neuro- alert, oriented x 3; no gross focal neurologic deficits Skin- warm & dry Updated Medication List Medication Instructions Recorded Confirmed Type ascorbic acid (vitamin C) 500 mg 500 mg PO DAILY 06/23/19 11/16/24 History tablet cholecalciferol (vitamin D3) 50 2,000 units PO QAM 06/23/19 11/16/24 History mcg (2,000 unit) tablet travoprost 0.004 % eye drops 1 drops OPB HS #3 mL 06/23/19 11/16/24 History diclofenac sodium 1 % topical gel 4 g topical TID PRN Other 08/07/20 11/16/24 History sodium chloride 1 gram tablet 1 g PO DAILY 10/02/20 11/16/24 History coenzyme Q10 100 mg capsule 100 mg PO DAILY 03/21/21 11/16/24 History (CoQ-10) duloxetine 60 mg capsule,delayed 60 mg PO DAILY 03/21/21 11/16/24 History release metformin 500 mg tablet,extended 500 mg PO BID 03/21/21 11/16/24 History release 24 hr cyanocobalamin (vitamin B-12) 1,000 mcg IM MONTHLY 09/25/23 11/16/24 History 1,000 mcg/mL injection kit dulaglutide 0.75 mg/0.5 mL 0.75 mg subcut .ON HOLD 09/25/23 11/16/24 History subcutaneous pen injector (Trulicity) rosuvastatin 5 mg tablet 5 mg PO 3XWK 09/25/23 11/16/24 History duloxetine 30 mg capsule,delayed 30 mg PO DAILY 06/30/24 11/16/24 History release Iron Glycinate Oral Capsule 28 mg PO 3XWK 11/16/24 11/16/24 History acetaminophen 325 mg tablet 650 mg PO Q4 PRN Pain 11/16/24 11/16/24 History acetaminophen 325 mg tablet 650 mg PO Q4 PRN TEMP 100F OR ABOVE 11/16/24 11/16/24 History calcium 500 mg (as 1 tab PO DAILY 11/16/24 11/16/24 History carbonate)-vitamin D3 5 mcg (200 unit) tablet cyanocobalamin (vitamin B-12) 100 100 mcg PO DAILY 11/16/24 11/16/24 History mcg tablet (Vitamin B-12) diclofenac sodium 1 % topical gel 2 g topical Q6 PRN Pain 11/16/24 11/16/24 History diclofenac sodium 1 % topical gel 2 g topical TID 32GM/24HR 11/16/24 11/16/24 History hydrocortisone 1 % topical cream 1 applic topical Q12 PRN BLE FOR 11/16/24 11/16/24 History ITCHING levothyroxine 25 mcg tablet 25 mcg PO 3XWK 11/16/24 11/16/24 History levothyroxine 50 mcg tablet 50 mcg PO 4XWK 11/16/24 11/16/24 History magnesium 250 mg tablet 250 mg PO 3XWK 11/16/24 11/16/24 History lidocaine 5 % topical patch 1 patch transdermal QAM 7 days #7 11/25/24 Rx ea Hospital Stay Data Consultations 11/16/24 20:46 ED Decision to Admit Stat 11/16/24 23:53 Consult Orthopedic Spine Surgery Routine 11/18/24 12:18 Consult Pain Management Routine Diagnostic Imagining Performed 11/16/24 17:29 CT hip LT wo con Stat CT lumbar spine wo con Stat 11/16/24 23:53 CT Abdomen and Pelvis [CT abd pelvis wo con] Urgent 11/17/24 07:53 MR lumbar spine wo con Urgent 11/18/24 13:18 Carotid duplex [US carotid doppler BI] Urgent 11/23/24 09:58 CT head/brain wo con Stat 11/24/24 20:11 US gallbladder Stat XR hip LT 2V w pelvis CLINICAL HISTORY: Left hip pain following fall. Evaluate for fracture. COMPARISON: Left hip radiographs May 20, 2022. FINDINGS: Sacroiliac joints and symphysis pubis are intact. There are no acute fractures within the pelvis or hips. A healed fracture of the greater trochanter of the left femur is present. Hip joint spaces are preserved. There are no osseous lesions. IMPRESSION: 1. No acute fractures within the pelvis or hips. 2. Healed fracture of the greater trochanter of the left femur. ACT 112: Negative or not required by law. XR knee LT 3V HISTORY: 84 years-old Female Knee trauma, no prior imaging COMPARISON: 06/30/2024 TECHNIQUE: 3 views of the left knee FINDINGS: Small joint effusion. Moderate to severe tricompartmental osteoarthritis. Mild anteromedial soft tissue swelling. No acute fracture, dislocation or osseous erosion. Arterial calcifications. IMPRESSION: 1. Joint effusion without acute fracture or dislocation. 2. Moderate to severe osteoarthritis. XR tibia fibula LT 2V CLINICAL HISTORY: Lower leg trauma COMPARISON: Left knee radiographs August 12, 2024. Left knee CT June 30, 2024. Leg length study February 09, 2019. FINDINGS: There are no acute fractures within the left tibia or fibula. No osseous lesions are identified. Moderate to severe left osteoarthritis of the left knee is present. There is extensive vascular calcification. There is plantar calcaneal spur. IMPRESSION: 1. No acute fractures within the left tibia or fibula. 2. Moderate to severe left knee osteoarthritis. Exam: CT left hip without contrast Reason for exam: Fall Previous studies: None FINDINGS: No acute fracture or dislocation is seen at this time. Bony fragments are seen in the region of the greater trochanter which are well corticated and appear chronic suggesting previous trauma and/or greater trochanteric bursitis. No destructive lytic or blastic bony process is seen at this time. Degenerative changes of the symphysis pubis are present. IMPRESSION: 1. Negative for acute bony fracture at this time. 2. Chronic-appearing ossific bodies associated with the greater trochanter may indicate previous trauma and/or chronic calcific greater trochanteric bursitis. 3. Posttraumatic symptoms of pain referable to the hip or pelvis persist however, more sensitive evaluation with MRI study should be obtained, since subtle fractures may not be visible on radiographic studies. Electronically signed by Umair Doll 11-16-2024 6:54 PM Exam: CT lumbar spine without contrast Reason for exam: Patient fell Previous studies: 06/30/2024 FINDINGS: There is a moderately severe compression fracture of L1 newly occurring since the previous study of 06/30/2024 and may relate to the current trauma. There is retropulsion of the posterior-superior fragment by approximately 5 mm causing anterior impression on the thecal sac at this level. Moderate compression fracture of L2 is stable with mild posterior retropulsion of the posterior-superior fragment at that level as well. The L3, L4 and L5 vertebral bodies are intact. There is desiccation of the intervertebral disks at all other levels. Degenerative facet arthropathy is seen. Additionally there is a contributory grade 2 spondylolisthesis of L5 on S1. These findings result in the moderate lateral recess and neural foraminal narrowings from the L2 through the S1 levels. There is generalized osteoporosis. Extensive degenerative disc and joint disease is seen in the lower thoracic spine as well. IMPRESSION: 1. Moderately severe compression fracture of L1, newly occurring since a previous study of 06/30/2024 may relate to the current trauma. There is approximately 5 mm retropulsion with the impression on the thecal sac of the posterior superior fragment at this level. 2. Stable compression fracture of L2. 3. Stable spondylolisthesis of L5 on S1. 4. Stable extensive degenerative disc and joint disease with the elements of lateral recess and neural foraminal stenosis. 5. MRI study recommended for better evaluation of the chronicity of the fractures and the effects on the thecal sac, spinal cord and neural elements. Electronically signed by Umair Doll 11-16-2024 7:43 PM Dictated: 11/16/24 [address] [place], [place] [phone] CT Scan Report Patient: LILIBETH KONG Admit Date: 11/16/24 MR#: [id number] Address1: [facility] [place] Acct ID:[id number] Address2: Date: 1940 [facility] Zip: [place] [address] Age: 84 Location: 3W Sex: F Room/Bed: [facility] Att Phy: Alvin Posadas DO Diagnosis: AMBULATORY DYSFUNCTION Elena Phy: Tabitha Hall MD Service Date: 11/16/24 Fam Phy: Interpreting Phy: Josesito Marvin MDAdmit Phy: Alvin Posadas DO Ordering Phy: lAvin Posadas DO cc: ~ EXAM: CT abd pelvis wo con CLINICAL HISTORY: Abdominal pain and distention TECHNIQUE: Contiguous axial images were obtained from the level of the diaphragm to the pubic symphysis without intravenous or oral contrast. Coronal and sagittal reconstructions were likewise performed and indicated to increase the sensitivity for detecting clinically relevant pathology. CT scan was performed according to ALARA (as low as reasonably achievable). COMPARISON: CT, 06/30/2024 12:01:56 [facility] FINDINGS: The visualized lung bases shows subpleural reticulations and fibro-atelectatic bands. Evaluation of the abdominal and pelvic visceral organs is limited without intravenous contrast. Diffuse hypoattenuation of liver parenchyma. The unenhanced spleen, pancreas, and adrenal glands are grossly unremarkable. The gallbladder is present. The kidneys are normal in size and attenuation without obvious calcification. There is no hydronephrosis or perinephric stranding. The ureters are normal in caliber. No adenopathy or fluid collections are seen. No evidence of focal or diffuse bowel wall thickening or evidence of bowel obstruction is seen. No evidence of inflamed appendix. The aorta is normal in caliber. The urinary bladder is normal in contour. Pelvic viscera are grossly unremarkable. Diffuse atherosclerotic wall calcification of abdominal aorta. Grade I anterolisthesis of L5 over S1 with old bilateral pars interarticularis fracture. Old central compression fracture of L1 vertebral body and anterior wedge compression of L2 vertebra. Degenerative changes in rest of the visualized spine. IMPRESSION: 1. Hepatic steatosis. 2. No significant interval change compared with previous study. Electronically signed by Josesito Marvin 11-17-2024 02:57 AM MRI OF THE LUMBAR SPINE WITHOUT CONTRAST CLINICAL HISTORY: Back pain. Frequent falls. COMPARISON STUDY: Lumbar spine CT November 16, 2024. Lumbar spine CT June 30, 2024. Lumbar spine MRI May 18, 2015. TECHNIQUE: Utilizing a 1.5 Daniella magnet and dedicated coil, multiplanar, multiecho imaging of the lumbar spine was performed without IV contrast. FINDINGS: For purposes of numbering on this exam, the L5-S1 disc space is assigned to axial image 27 of 30. 8 mm of anterolisthesis of L5 on S1 is due to bilateral L5 pars defects. This is unchanged since MRI of May 18, 2015. An old mild L2 compression fractures unchanged since CT of June 30, 2024. There is a moderate compression fracture of the superior endplate of L1 with 50% loss of vertebral body height. There is marrow edema. This fracture is new since CT of June 30, 2024. There is 4 mm of retropulsion at the superior endplate of L1 which results in moderate narrowing of the right aspect of the canal. This indents the right ventral aspect of the cord. No additional lumbar spine fractures are present. No suspicious marrow replacement is present. Subacute to chronic left sacral ala insufficiency fractures present. Moderate multilevel degenerative changes within the lumbar spine are present. L1-2: There is minimal disc bulge. Central canal and neural foramen are patent. There is facet arthrosis. L2-3: There is moderate facet arthrosis. The central canal and neural foramen are patent. L3-4: There is moderate disc space narrowing with facet arthrosis and ligamentous hypertrophy. There is moderate central canal and mild bilateral neural foraminal stenosis. L4-5: Moderate to space narrowing is noted with facet arthrosis and ligamentous hypertrophy. There is mild narrowing of the central canal and left neural foramen. There is moderate right neural foraminal stenosis. L5-S1: Anterolisthesis due to bilateral L5 pars defects is present. There is no central canal stenosis. Severe left and moderate right neural foraminal stenosis is unchanged. IMPRESSION: 1. Acute to subacute L1 compression fracture with 50% loss of vertebral body height and 4 mm of retropulsion which results in moderate central canal narrowing. This indents the right ventral aspect of the cord without cord signal abnormality. 2. Chronic L2 compression fracture. 3. Moderate degenerative changes within the lumbar spine, as described above. 4. No change in anterolisthesis of L5 on S1 due to bilateral L5 pars defects. 5. Subacute to chronic left sacral ala insufficiency fracture. ACT 112: Negative or not required by law. Electronically signed by: Robert Amaral M.D. 11/17/2024 1:03 PM Dictated: 11/17/24 1249 CAROTID ARTERY ULTRASOUND CLINICAL HISTORY: Dizziness COMPARISON STUDY: Carotid ultrasound September 25, 2023. TECHNIQUE: Real-time, grayscale, and color Doppler sonography of the carotid and vertebral arteries was performed. Images were viewed in the transverse and longitudinal planes. FINDINGS: There is mild atherosclerotic plaque. Velocity measurements are listed below. COMMON CAROTID PEAK SYSTOLIC VELOCITY (CM/S): RIGHT 50 LEFT 61 ICA PEAK SYSTOLIC VELOCITY (CM/S): RIGHT 49 LEFT 42 Systolic ratios between the internal to common carotid artery is normal. Antegrade flow is seen in the vertebral arteries. The external carotid arteries are patent. IMPRESSION: No evidence for a hemodynamically significant stenosis. ACT 112: Negative or not required by law. CT head/brain wo con CLINICAL HISTORY: AMS, H/o fall. TECHNIQUE: Multiple axial CT images of the head were obtained without contrast. A dose lowering technique was utilized adhering to the principles of ALARA. CT DOSE: 547.75 mGy.cm COMPARISON: 06/30/2024 FINDINGS: The CT findings are stable. There is no acute traumatic intracranial abnormality identified. There is no intra or extra-axial mass, hemorrhage, or abnormal fluid collection identified. The ventricles remain distended due to disproportionate to the superficial cortical sulci. There is diminished periventricular white matter brain attenuation. There is no midline shift. The bone windows are negative. IMPRESSION: No acute intracranial process identified. Consider NPH in the appropriate clinical context. ACT 112: Negative or not required by law. Exam(s): US GALLBLADDER EXAM: US Abdomen Limited, Gallbladder CLINICAL HISTORY: Reason for exam: upper abd pain. TECHNIQUE: Real-time ultrasound of the right upper quadrant with image documentation. COMPARISON: No relevant prior studies available. FINDINGS: Liver: There is diffuse hepatic steatosis with focal fatty sparing adjacent to the gallbladder fossa. No hepatic mass. No intrahepatic or extrahepatic bile duct dilatation is noted. Gallbladder: There is suggestion of a small amount of nonshadowing biliary sludge. No shadowing gallstones, gallbladder wall thickening or pericholecystic fluid identified. Common bile duct: Unremarkable as visualized. No stones. No dilation. Pancreas: Unremarkable as visualized. IMPRESSION: 1. There is diffuse hepatic steatosis. 2. There is suggestion of a small amount of nonshadowing biliary sludge. No shadowing gallstones, gallbladder wall thickening or pericholecystic fluid identified. Discharge Instructions Given to Patient (Per Discharging Provider) PLEASE REFER TO ACCOMPANYING HOSPITAL DISCHARGE SUMMARY FOR DETAILS. Total Time Total Time Spent Total Time Spent (In Minutes): 35 minutes
== END 2024-11-25 13:34 | disposition home or self-care (01) | DRG 543 ==
LOC: ED 14:10 → 3W 14:10 → SUATTDRO 22:01 → 3W 23:03 → SUATTDRO 11-17 16:55 → 3W 11-18 09:43

== ENCOUNTER 2024-12-03 09:40 | Inpatient (IN) ==
--- NOTE | 2024-12-03 09:51 | Emergency Department Note ---
Impression & Plan Fracture of rib, Fall, Leukocytosis, Acute hyponatremia ED Provider Note NAME: YONNY FARLEY AGE: 84 SEX: F : 1940 ARRIVES VIA: Ambulance INFORMANT: Patient ED PROVIDER(S): Devon Herman DO CHIEF COMPLAINT: Fall HPI: Patient is an 84-year-old female with a past medical history of diabetes, hypertension, recurrent falls, who presents to the ER for a fall last night. Additional history was obtained from EMS who is present at bedside and notes that patient has old lower back fractures and rib fractures on the left side. Per what the care home told EMS she fell last night and has been having left- sided pain since then. Patient notes that she was walking and she believes she tripped. She denies any dizziness or lightheadedness. No chest pain or shortness of breath prior to this. She admits to pain on her left side of her ribs with breathing as well as twisting, turning, bending, and laying on them. Denies any belly pain. No nausea, vomiting, or diarrhea. No other exacerbating or remitting factors. No other extremity pain. No new back pain. ADDITIONAL HISTORY OBTAINED: Per HPI Chronic Medical/Social Conditions Affecting Care: Per HPI PAST MEDICAL HISTORY:See Below PAST SURGICAL HISTORY:See Below FAMILY HISTORY:See Below SOCIAL HISTORY:See Below HOME MEDICATIONS:See Below ALLERGIES:See Below VITALS:See Below PHYSICAL EXAMINATION: GENERAL: alert, well appearing, well nourished, no distress, non-toxic HEAD: normal cephalic, atraumatic EYE EXAM: normal conjunctiva, PERRL and EOM's grossly intact OROPHARYNX: no exudate, no erythema, lips, buccal mucosa, and tongue normal and mucous membranes are moist EARS: TMs clear b/l NECK: supple, no nuchal rigidity, no adenopathy, non-tender CHEST: Tenderness over the left upper chest wall on palpation LUNGS: clear to auscultation. Normal chest wall mechanics HEART: no murmurs, S1 normal and S2 normal ABDOMEN: abdomen soft, non-tender, normo-active bowel sounds, no masses, no rebound or guarding. PELVIS: stable to compression anteriorly and posteriorly BACK: Back is symmetrical on inspection and there is no deformity, no midline tenderness, no CVA tenderness. UPPER EXTREMITIES: full active and passive range of motion of all joints without tenderness to palpation LOWER EXTREMITIES: full active and passive range of motion of all joints without tenderness to palpation NEURO EXAM: Normal sensorium, cranial nerves II-XII grossly intact, normal speech, no gross weakness of arms, no gross weakness of legs. GCS: 15. MEDICAL DECISION MAKING: Patient is an 84-year-old female who presents to the ER for the above-stated complaint. IV was established and blood work was obtained. Labs show leukocytosis of 13,000. No significant anemia. BMP with hyponatremia at 130. LFTs and bilirubin is unremarkable. Troponin was negative. Lipase normal. Patient does remember the event. This appears to be not syncopal. CT of the head chest shows 2 rib fractures which are acute. CT cervical spine was negative. Patient was given IV morphine. She had significant pain with any movement. She was updated bedside and discussed with the hospitalist Dr. Escoto for further evaluation management treatment. Consults/Care Managements Discussions: Per [facility] Triage Nursing notes reviewed. Limited review of prior medical records performed Vital Signs: reviewed and remarkable for no significant abnormalities Differential diagnosis: Differential diagnoses include major intracranial, cervical, spinal, thoracic, abdominal, pelvic and neurologic injury. Fracture, contusion, sprain, strain, laceration, abrasions included as well. ER treatment provided: See below Diagnostics interpreted by me include EKG and cardiac monitoring as listed below: -Cardiac Monitoring: An order was placed for continuous cardiac monitoring. The monitor shows a rate of 90 with sinus rhythm. -ECG: none -Laboratory studies:Interpreted by me as stated above in MDM and shown below. Imaging studies: Xrays: As interpreted by me: Portable AP upright 1 view of the chest shows no focal infiltrate CTs show: CT head chest and cervical spine showed 2 rib fractures Procedures:none Critical Care: None Past Med/Surg History Problem List (Updated 12/03/24 @ 15:53 by Devon Herman DO) Acute hyponatremia (Acute) Leukocytosis (Acute) Fracture of rib (Acute) Rib fracture Leukocytosis (Acute) Lumbar compression fracture (Acute) Left hip pain (Acute) Fall (Acute) Abdominal distension Loss of consciousness Acute hyponatremia (Acute) Laceration of scalp (Acute) Acute head trauma (Acute) Weakness (Acute) Right rotator cuff tear Degenerative arthritis of knee, bilateral Contusion of left knee Left knee DJD Fracture of metacarpal of left hand, closed Right rotator cuff tear arthropathy Gait disturbance Bilateral primary osteoarthritis of knee Closed fracture of greater trochanter of left femur (Acute) Dementia Dementia Chronic hyponatremia Recurrent falls Multiple rib fractures (Acute) COVID-19 (Acute) Type 2 diabetes mellitus Cervical spinal stenosis Cervical radiculopathy HTN (hypertension) Osteoarthritis of knees, bilateral Hypothyroid (Chronic) Vitamin B12 deficiency Carotid artery plaque (Acute) 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) Spondylolisthesis, acquired (Acute) Skin abnormality (Acute) Osteoporosis (Acute) Glaucoma (Acute) Esophageal reflux (Acute) Dyslipidemia (Acute) Disc degeneration, lumbosacral (Acute) Medical History Multiple fractures Compression fx, lumbar spine Closed rib fracture Weakness Fall Closed tibial fracture Rib fracture Compression fracture of L2 Left patella fracture Ambulatory dysfunction Fall DVT prophylaxis Thrombocytosis Hypochloremia Acute hyponatremia Unsteady gait Signs and symptoms involving cognition Numbness of left foot Colon cancer screening Surgical History History of tubal ligation Family History Sister Breast cancer Father Myocardial infarction Other No pertinent family history Denies family history of Colon cancer Ovarian cancer Prostate cancer Social History Smoking Status: Never smoker Tobacco Type: Declines Second Hand Exposure: No; Do You Dip or Chew Tobacco: No; Hx Alcohol Use: No Hx Substance Use: No Preferred Language: Czech Communication Ability: Effective Visual Impairment: No Limitations Hearing Ability: Normal Administrative 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 Titles Required: No Beliefs That Will Affect Care: None marital status: Current Living Situation: Spouse Current Living Situation Comment: HOME HEALTH AIDE Feels Safe at Home: Yes Seatbelt Use: always Assistive Devices: Cane and Walker Allergies Allergies Allergy/AdvReac Type Severity Reaction Status Date / Time salicylates Allergy Severe HIVES Verified 11/16/24 21:36 monosodium glutamate Allergy Mild Unknown Verified 11/16/24 21:36 Penicillins Allergy Mild Unknown Verified 11/16/24 21:36 Sulfa (Sulfonamide Allergy Mild Unknown Verified 11/16/24 21:36 Antibiotics) alendronate sodium Allergy Unknown UNKNOWN Verified 02/16/24 08:15 aspirin Allergy Unknown Hives Verified 11/16/24 21:36 Home Meds Home Medications Medication Instructions Recorded Confirmed ascorbic acid (vitamin C) 500 mg 500 mg PO DAILY 06/23/19 12/03/24 tablet cholecalciferol (vitamin D3) 50 2,000 units PO QAM 06/23/19 12/03/24 mcg (2,000 unit) tablet travoprost 0.004 % eye drops 1 drops OPB HS #3 mL 06/23/19 12/03/24 diclofenac sodium 1 % topical gel 4 g topical TID PRN Other 08/07/20 12/03/24 sodium chloride 1 gram tablet 1 g PO DAILY 10/02/20 12/03/24 coenzyme Q10 100 mg capsule 100 mg PO DAILY 03/21/21 12/03/24 (CoQ-10) duloxetine 60 mg capsule,delayed 60 mg PO DAILY 03/21/21 12/03/24 release metformin 500 mg tablet,extended 500 mg PO BID 03/21/21 12/03/24 release 24 hr cyanocobalamin (vitamin B-12) 1,000 mcg IM MONTHLY 09/25/23 12/03/24 1,000 mcg/mL injection kit dulaglutide 0.75 mg/0.5 mL 0.75 mg subcut .ON HOLD 09/25/23 12/03/24 subcutaneous pen injector (Trulicity) rosuvastatin 5 mg tablet 5 mg PO 3XWK 09/25/23 12/03/24 duloxetine 30 mg capsule,delayed 30 mg PO DAILY 06/30/24 12/03/24 release Iron Glycinate Oral Capsule 28 mg PO 3XWK 11/16/24 12/03/24 acetaminophen 325 mg tablet 650 mg PO Q4 PRN Pain 11/16/24 12/03/24 acetaminophen 325 mg tablet 650 mg PO Q4 PRN TEMP 100F OR ABOVE 11/16/24 12/03/24 calcium 500 mg (as 1 tab PO DAILY 11/16/24 12/03/24 carbonate)-vitamin D3 5 mcg (200 unit) tablet cyanocobalamin (vitamin B-12) 100 100 mcg PO DAILY 11/16/24 12/03/24 mcg tablet (Vitamin B-12) diclofenac sodium 1 % topical gel 2 g topical Q6 PRN Pain 11/16/24 12/03/24 diclofenac sodium 1 % topical gel 2 g topical TID 32GM/24HR 11/16/24 12/03/24 hydrocortisone 1 % topical cream 1 applic topical Q12 PRN BLE FOR 11/16/24 12/03/24 ITCHING levothyroxine 25 mcg tablet 25 mcg PO 3XWK 11/16/24 12/03/24 levothyroxine 50 mcg tablet 50 mcg PO 4XWK 11/16/24 12/03/24 magnesium 250 mg tablet 250 mg PO 3XWK 11/16/24 12/03/24 Results & Data (ED) Vital Signs Vital Signs - 24 hr 12/03/24 09:46 12/03/24 09:46 12/03/24 10:05 Temperature 36.4 C L Temperature Source Oral Pulse Rate 97 H 92 H Pulse Rate [Apical] 97 H Pulse Rhythm Regular Regular Pulse Rhythm [Apical] Regular Pulse Strength Normal Pulse Strength [Apical] Normal Respiratory Rate 15 15 16 Respiratory Effort / Characteristics Non-Labored Non-Labored Spontaneous Respiratory Depth Normal Normal Respiratory Pattern Regular Regular Blood Pressure 176/103 H Blood Pressure [Right Arm] 176/103 H Blood Pressure Mean 127 Blood Pressure Mean [Right Arm] 127 Blood Pressure Position [Right Arm] Lying Pulse Oximetry 98 98 97 Oxygen Delivery Method Room Air Room Air Room Air Sepsis Recent Fever Within 48 Hours No Sepsis New/Unexplained Change in Mental Status No Sepsis Action Taken by Nursing No Action Required 12/03/24 10:27 12/03/24 11:31 Temperature Temperature Source Pulse Rate 93 H Pulse Rate [Apical] 92 H Pulse Rhythm Pulse Rhythm [Apical] Regular Pulse Strength Pulse Strength [Apical] Normal Respiratory Rate 16 Respiratory Effort / Characteristics Non-Labored Respiratory Depth Normal Respiratory Pattern Regular Blood Pressure Blood Pressure [Right Arm] 162/94 H Blood Pressure Mean Blood Pressure Mean [Right Arm] 116 Blood Pressure Position [Right Arm] Lying Pulse Oximetry 94 Oxygen Delivery Method Room Air Sepsis Recent Fever Within 48 Hours Sepsis New/Unexplained Change in Mental Status Sepsis Action Taken by Nursing Laboratory Data 12/03/24 10:12 12/03/24 10:12 Lab Results 12/03/24 12/03/24 Range/Units 10:12 10:18 WBC 13.42 H (4.8-10.8) K/ul RBC 4.64 (4.20-5.40) M/uL Hgb 12.7 (12.0-16.0) g/dl POC Hgb 13.3 (12.0-16.0) g/dl Hct 38.6 (37.0-47.0) % POC Hct 39 (37-47) % MCV 83.2 (80.0-100.0) fL MCH 27.4 (25.0-34.0) pg MCHC 32.9 (32.0-36.0) g/dL RDW Std Deviation 38.5 (36.4-46.3) fL RDW Coeff of Maddie 12.7 (11.5-14.5) % Plt Count 431 H (130-400) K/uL MPV 9.2 L (9.4-12.4) fL Immature Gran % (Auto) 0.5 % Neut % (Auto) 79.0 % Lymph % (Auto) 12.0 % [place] % (Auto) 7.3 % Eos % (Auto) 0.9 % Baso % (Auto) 0.3 % Neut # (Auto) 10.60 H (1.40-6.50) K/uL Lymph # (Auto) 1.61 (1.20-3.40) K/uL [place] # (Auto) 0.98 H (0.11-0.59) K/uL Eos # (Auto) 0.12 (0.00-0.50) K/uL Baso # (Auto) 0.04 (0.00-0.20) K/uL Immature Gran # (Auto) 0.07 (0.01-0.20) K/uL POC Sodium 129 L (135-144) mmol/L Sodium 130 L (136-145) mmol/L POC Potassium 4.7 (3.3-5.0) mmol/L Potassium 4.7 (3.5-5.1) mmol/L POC Chloride 93 L (101-112) mmol/L Chloride 93 L (98-107) mmol/L Carbon Dioxide 29 (21-32) mmol/L POC Total CO2 25 (24-31) mmol/L Anion Gap 8 (3-11) POC Anion Gap 17.0 (16-25) mmol/L POC BUN 10 (7-18) mg/dl BUN 11 (6-23) mg/dl Creatinine 0.64 (0.6-1.2) mg/dl POC Creatinine 0.7 (0.6-1.3) mg/dl Est Cr Clr Drug Dosing 39.7 ml/min eGFR 86.01 BUN/Creatinine Ratio 17.2 (10-20) Glucose 226 H (70-99(Fasting)) mg/dl POC Glucose (other) 228 H (70-99) mg/dl Calcium 9.1 (8.6-10.3) mg/dl POC Ioniz Calcium Azar 1.10 L (1.12-1.32) mmol/l Total Bilirubin 0.8 (0.2-1.0) mg/dl AST 22 (13-39) U/L ALT 22 (7-52) U/L Alkaline Phosphatase 106 H (34-104) U/L Troponin I High Sens 9.2 (0-14) pg/ml Total Protein 7.7 (6.0-8.3) gm/dl Albumin 4.5 (3.4-5.0) gm/dl Globulin 3.2 (2.5-4.0) gm/dl Albumin/Globulin Ratio 1.4 (0.9-2) Lipase 35 (11-82) U/L Administered Medications Discontinued Medications Ioversol (Optiray 320 100ml) 94 ml IV ONCE ONE Stop: 12/03/24 10:43 Last Admin: 12/03/24 10:43 Dose: 94 ml Documented By: SUDEEP Morphine Sulfate (Morphine Sulfate 2 Mg/Ml Carp) 2 mg IV NOW STA Stop: 12/03/24 12:07 Last Admin: 12/03/24 12:34 Dose: 2 mg Documented By: MINERVA Ondansetron HCl (Ondansetron Inj 2 Mg/Ml 2 Ml Vial) 4 mg IV NOW STA Stop: 12/03/24 12:07 Last Admin: 12/03/24 12:34 Dose: 4 mg Documented By: MINERVA Imaging Data Radiologist's Impression: Cervical Spine CT 12/03/24 09:46 CT cervical spine wo con CLINICAL HISTORY: fall. COMPARISON: 06/30/2024 TECHNIQUE: Multiple axial CT images of the cervical spine were obtained without contrast. A dose lowering technique was utilized adhering to the principles of ALARA. FINDINGS: There is severe diffuse degenerative disc disease. Stable mild anterolisthesis of C2 on 3. No fracture seen. IMPRESSION: No cervical spine fracture seen. ACT 112: Negative or not required by law. The above report was generated using voice recognition software. It may contain grammatical, syntax or spelling errors. Electronically signed by: Umair Vu M.D. 12/03/2024 11:[address] 12/03/24 09:[address] WITH CONTRAST HISTORY: Acute left-sided chest pain status post fall fall left sided cp TECHNIQUE: Multiaxial CT images of the chest were performed following the IV administration of 94 cc of Optiray. A dose lowering technique was utilized adhering to the principles of ALARA. COMPARISON: Chest radiograph of same day, chest CT 06/30/2024, CT lumbar spine 11/16/2024 FINDINGS: Unremarkable thyroid. No pathologically enlarged lymph nodes. Heart is mildly enlarged. No pericardial effusion. Moderate coronary artery calcifications. Atherosclerosis of the thoracic aorta. Unremarkable pulmonary artery. No pneumothorax, pleural effusion, or overt pulmonary edema. Bibasilar scarring versus atelectasis. No suspicious pulmonary nodules or masses. Central airways are patent. Hepatomegaly with hepatic steatosis. No acute upper abdominal abnormality. Degenerative changes of the shoulders and spine. Acute minimally displaced fractures of the anterior left sixth and seventh ribs. Healing subacute nondisplaced fracture of the lateral left seventh rib. There are a few chronic appearing nondisplaced bilateral rib fractures. Partially imaged compression deformity of the L1 vertebral body with retropulsion redemonstrated. IMPRESSION: 1. Acute minimally displaced fractures of the anterior left sixth and seventh ribs. No pneumothorax. 2. Healing subacute nondisplaced fracture of the lateral left seventh rib with chronic bilateral rib fractures. 3. Partially imaged subacute appearing L1 compression deformity with retropulsion redemonstrated. ACT 112: Negative or not required by law. Electronically signed by: Gerhard Garcia M.D. 12/03/2024 11:09 AM Chest X-Ray 12/03/24 09:46 XR chest 1V portable CLINICAL HISTORY: Chest pain, nonspecific COMPARISON STUDY: 09/25/2023 FINDINGS: Heart size and pulmonary vasculature are normal. No effusion, consolidation, or pneumothorax. There is an interval old nondisplaced fracture with callus formation laterally at the left sixth rib. IMPRESSION: 1. Interval old left sided rib fracture. 2. No other acute findings seen. ACT 112: Negative or not required by law. Electronically signed by: Umair Vu M.D. 12/03/2024 10:[address] 12/03/24 09:46 CT head/brain wo con CLINICAL HISTORY: 84 years-old Female with falll. Acute head trauma status post fall TECHNIQUE: Multiple axial CT images of the head were obtained without contrast. A dose lowering technique was utilized adhering to the principles of ALARA. CT DOSE: 1302.51 mGy.cm COMPARISON: 11/23/2024 FINDINGS: No acute intracranial hemorrhage, midline shift, intracranial mass, acute territorial ischemia or abnormal extra-axial collection. Involutional changes with chronic microvascular ischemic disease. Ventriculomegaly is unchanged, likely secondary to the brain atrophy. The calvarium is intact. The paranasal sinuses, mastoid air cells, and middle ear cavities are clear. IMPRESSION: No acute intracranial abnormality. ACT 112: Negative or not required by law. The above report was generated using voice recognition software. It may contain grammatical, syntax or spelling errors. Electronically signed by: Gerhard Garcia M.D. 12/03/2024 10:54 AM Discharge Plan Visit Data Chief Complaint: Fall ED Provider: Devon Herman Discharge Problem: Fracture of rib, Fall, Leukocytosis, Acute hyponatremia Patient Disposition: Admitted As Inpatient Discharge Instructions Interventions: ED Discharge Assessment Last Done: 12/03/24 15:37 Discharge Problem: Fracture of rib Qualifiers: Encounter type: initial encounter Rib fracture type: multiple ribs Fracture type: closed Laterality: left Qualified Code(s): S22.42XA - Multiple fractures of ribs, left side, initial encounter for closed fracture Fall Qualifiers: Encounter type: initial encounter Qualified Code(s): W19.XXXA - Unspecified fall, initial encounter Leukocytosis Qualifiers: Leukocytosis type: unspecified Qualified Code(s): D72.829 - Elevated white blood cell count, unspecified
--- NOTE | 2024-12-03 10:08 | XRay Report ---
XR chest 1V portable CLINICAL HISTORY: Chest pain, nonspecific COMPARISON STUDY: 09/25/2023 FINDINGS: Heart size and pulmonary vasculature are normal. No effusion, consolidation, or pneumothora x. There is an interval old nondisplaced fracture with callus formation laterally at the left sixth r ib. IMPRESSION: 1. Interval old left sided rib fracture. 2. No other acute findings seen. ACT 112: Negative or not required by law. Electronically signed by: Umair Vu M.D. 12/03/2024 10:07 AM
[2024-12-03 10:29] LABS: iSTAT Creatinine 0.7 mg/dl (0.6-1.3); iSTAT Hemoglobin 13.3 g/dl (12.0-16.0); iSTAT Ionized Calcium 1.1 mmol/l (1.12-1.32); iSTAT Potassium 4.7 mmol/L (3.3-5.0)
[2024-12-03 10:37] LABS: Basophils # (auto) 0.04 K/uL (0.00-0.20); Basophils % (auto) 0.3 %; Eosinophils # (auto) 0.12 K/uL (0.00-0.50); Eosinophils % (auto) 0.9 %; Hematocrit (blood only) 38.6 % (37.0-47.0); Hemoglobin 12.7 g/dl (12.0-16.0); Immature Granulocytes # (auto) 0.07 K/uL (0.01-0.20); Immature Granulocytes % (auto) 0.5 %; Lymphocytes # (auto) 1.61 K/uL (1.20-3.40); Mean Corpuscular Hemoglobin 27.4 pg (25.0-34.0); Mean Corpuscular Hgb Conc 32.9 g/dL (32.0-36.0); Mean Corpuscular Volume 83.2 fL (80.0-100.0); Mean Platelet Volume 9.2 fL (9.4-12.4); Monocytes # (auto) 0.98 K/uL (0.11-0.59); Monocytes % (auto) 7.3 %; Platelet Count 431 K/uL (130-400); RDW Coefficient of Variation 12.7 % (11.5-14.5); RDW Standard Deviation 38.5 fL (36.4-46.3); Red Blood Count 4.64 M/uL (4.20-5.40); White Blood Count 13.42 K/ul (4.8-10.8)
[2024-12-03] MEDS: OPTIRAY 320 100ml IV ONE (10:43)
[2024-12-03 10:55] LABS: Albumin Globulin Ratio 1.4 (0.9-2); Albumin Level 4.5 gm/dl (3.4-5.0); BUN Creatinine Ratio 17.2 (10-20); Bilirubin,Total 0.8 mg/dl (0.2-1.0); Calcium 9.1 mg/dl (8.6-10.3); Creatinine Clr Calc Pharmacy 39.7 ml/min; Globulin 3.2 gm/dl (2.5-4.0); Potassium 4.7 mmol/L (3.5-5.1); Total Protein 7.7 gm/dl (6.0-8.3)
--- NOTE | 2024-12-03 10:56 | CT Scan Report ---
CT head/brain wo con CLINICAL HISTORY: 84 years-old Female with falll. Acute head trauma status post fall TECHNIQUE: Multiple axial CT images of the head were obtained without contrast. A dose lowering tech nique was utilized adhering to the principles of ALARA. CT DOSE: 1302.51 mGy.cm COMPARISON: 11/23/2024 FINDINGS: No acute intracranial hemorrhage, midline shift, intracranial mass, acute territorial ischemia or abn ormal extra-axial collection. Involutional changes with chronic microvascular ischemic disease. Ventr iculomegaly is unchanged, likely secondary to the brain atrophy. The calvarium is intact. The paranasal sinuses, mastoid air cells, and middle ear cavities are clear . IMPRESSION: No acute intracranial abnormality. ACT 112: Negative or not required by law. The above report was generated using voice recognition software. It may contain grammatical, syntax o r spelling errors. Electronically signed by: Gerhard Garcia M.D. 12/03/2024 10:54 AM
[2024-12-03 11:01] LABS: Troponin I High Sensitivity 9.2 pg/ml (0-14)
--- NOTE | 2024-12-03 11:02 | CT Scan Report ---
CT cervical spine wo con CLINICAL HISTORY: fall. COMPARISON: 06/30/2024 TECHNIQUE: Multiple axial CT images of the cervical spine were obtained without contrast. A dose low ering technique was utilized adhering to the principles of ALARA. FINDINGS: There is severe diffuse degenerative disc disease. Stable mild anterolisthesis of C2 on 3. No fracture seen. IMPRESSION: No cervical spine fracture seen. ACT 112: Negative or not required by law. The above report was generated using voice recognition software. It may contain grammatical, syntax o r spelling errors. Electronically signed by: Umair Vu M.D. 12/03/2024 11:00 AM
--- NOTE | 2024-12-03 11:12 | CT Scan Report ---
CHEST CT WITH CONTRAST HISTORY: Acute left-sided chest pain status post fall fall left sided cp TECHNIQUE: Multiaxial CT images of the chest were performed following the IV administration of 94 cc of Optiray. A dose lowering technique was utilized adhering to the principles of ALARA. COMPARISON: Chest radiograph of same day, chest CT 06/30/2024, CT lumbar spine 11/16/2024 FINDINGS: Unremarkable thyroid. No pathologically enlarged lymph nodes. Heart is mildly enlarged. No pericardial effusion. Moderate coronary artery calcifications. Atherosclerosis of the thoracic aorta. Unremarkable pulmonary artery. No pneumothorax, pleural effusion, or overt pulmonary edema. Bibasilar scarring versus atelectasis. N o suspicious pulmonary nodules or masses. Central airways are patent. Hepatomegaly with hepatic steat osis. No acute upper abdominal abnormality. Degenerative changes of the shoulders and spine. Acute mi nimally displaced fractures of the anterior left sixth and seventh ribs. Healing subacute nondisplace d fracture of the lateral left seventh rib. There are a few chronic appearing nondisplaced bilateral rib fractures. Partially imaged compression deformity of the L1 vertebral body with retropulsion rede monstrated. IMPRESSION: 1. Acute minimally displaced fractures of the anterior left sixth and seventh ribs. No pneumothorax. 2. Healing subacute nondisplaced fracture of the lateral left seventh rib with chronic bilateral rib fractures. 3. Partially imaged subacute appearing L1 compression deformity with retropulsion redemonstrated. ACT 112: Negative or not required by law. Electronically signed by: Gerhard Garcia M.D. 12/03/2024 11:09 AM
[2024-12-03] MEDS: MoRPHine SULFATE 2 MG/ML CARP IV STA (12:34)
[2024-12-03] MEDS: ONDANSETRON INJ 2 MG/ML 2 ML VIAL IV STA (12:34)
--- NOTE | 2024-12-03 12:35 | History & Physical Report ---
Date of Service December 03, 2024 Assessment & Plan (1) Fall: (2) Rib fracture: Plan: Recurrent falls Acute displaced left sixth and seventh rib fractures Ambulatory dysfunction Subacute Age-related osteoporosis with current pathologic fracture, L1 vertebra --Chest CT:Acute minimally displaced fractures of the anterior left sixth and seventh ribs. No pneumothorax. Healing subacute nondisplaced fracture of the lateral left seventh rib with chronic bilateral rib fractures.Partially imaged subacute appearing L1 compression deformity with retropulsion redemonstrated. -- Pain control Fall precautions PT OT Incentive spirometry Leukocytosis Likely reactive No obvious source of infection Monitor Chronic hyponatremia/SIADH Sodium 130 Continue home salt tablets Fluid restriction Monitor sodium levels DM Type II: Last HbA1c 8 point hold oral diabetic meds ISS, basal Insulin, Accu checks, Diabetic diet Monitor blood glucose levels Hypothyroidism Continue levothyroxine DVT Px: Heparin SQ CODE STATUS DNI DNR Disposition Admit to medical floor PT OT prior to discharge History of Present Illness Chief Complaint: Fall, Rib fracture Primary Care Provider: Jackie Varghese [facility] Patient is a 84-year-old female with history of diabetes mellitus, hypothyroidism, cognitive impairment, chronic hyponatremia/SIADH, glaucoma, depression and other medical problems who was recently discharged from [facility] after being treated for L1 vertebral fracture, recurrent falls, ambulatory dysfunction presents with history of fall which she believes 2 days ago. Patient is a poor historian. Patient states that she fell on her left side 2 days ago while using a walker but does not believe she hit her head or lost consciousness. She is unable to clearly remember the events during the fall. States having left-sided rib pain with movement, worsens with deep breathing. Also states having some dyspnea. Denies any history of chest pain, dizziness, pedal edema, cough, fever, chills, focal weakness, numbness, change in vision, nausea, vomiting, abdominal pain, diarrhea, dysuria, hematuria. Allergies Allergy/AdvReac Type Severity Reaction Status Date / Time salicylates Allergy Severe HIVES Verified 11/16/24 21:36 monosodium glutamate Allergy Mild Unknown Verified 11/16/24 21:36 Penicillins Allergy Mild Unknown Verified 11/16/24 21:36 Sulfa (Sulfonamide Allergy Mild Unknown Verified 11/16/24 21:36 Antibiotics) alendronate sodium Allergy Unknown UNKNOWN Verified 02/16/24 08:15 aspirin Allergy Unknown Hives Verified 11/16/24 21:36 Home Medications Medication Instructions Recorded Confirmed Type ascorbic acid (vitamin C) 500 mg 500 mg PO DAILY 06/23/19 12/03/24 History tablet cholecalciferol (vitamin D3) 50 2,000 units PO QAM 06/23/19 12/03/24 History mcg (2,000 unit) tablet travoprost 0.004 % eye drops 1 drops OPB HS #3 mL 06/23/19 12/03/24 History diclofenac sodium 1 % topical gel 4 g topical TID PRN Other 08/07/20 12/03/24 History sodium chloride 1 gram tablet 1 g PO DAILY 10/02/20 12/03/24 History coenzyme Q10 100 mg capsule 100 mg PO DAILY 03/21/21 12/03/24 History (CoQ-10) duloxetine 60 mg capsule,delayed 60 mg PO DAILY 03/21/21 12/03/24 History release metformin 500 mg tablet,extended 500 mg PO BID 03/21/21 12/03/24 History release 24 hr cyanocobalamin (vitamin B-12) 1,000 mcg IM MONTHLY 09/25/23 12/03/24 History 1,000 mcg/mL injection kit dulaglutide 0.75 mg/0.5 mL 0.75 mg subcut .ON HOLD 09/25/23 12/03/24 History subcutaneous pen injector (Trulicity) rosuvastatin 5 mg tablet 5 mg PO 3XWK 09/25/23 12/03/24 History duloxetine 30 mg capsule,delayed 30 mg PO DAILY 06/30/24 12/03/24 History release Iron Glycinate Oral Capsule 28 mg PO 3XWK 11/16/24 12/03/24 History acetaminophen 325 mg tablet 650 mg PO Q4 PRN Pain 11/16/24 12/03/24 History acetaminophen 325 mg tablet 650 mg PO Q4 PRN TEMP 100F OR ABOVE 11/16/24 12/03/24 History calcium 500 mg (as 1 tab PO DAILY 11/16/24 12/03/24 History carbonate)-vitamin D3 5 mcg (200 unit) tablet cyanocobalamin (vitamin B-12) 100 100 mcg PO DAILY 11/16/24 12/03/24 History mcg tablet (Vitamin B-12) diclofenac sodium 1 % topical gel 2 g topical Q6 PRN Pain 11/16/24 12/03/24 History diclofenac sodium 1 % topical gel 2 g topical TID 32GM/24HR 11/16/24 12/03/24 History hydrocortisone 1 % topical cream 1 applic topical Q12 PRN BLE FOR 11/16/24 12/03/24 History ITCHING levothyroxine 25 mcg tablet 25 mcg PO 3XWK 11/16/24 12/03/24 History levothyroxine 50 mcg tablet 50 mcg PO 4XWK 11/16/24 12/03/24 History magnesium 250 mg tablet 250 mg PO 3XWK 11/16/24 12/03/24 History Past Med/Surg History Problem List (Updated 12/03/24 @ 13:33 by Karri Escoto MD) Rib fracture Leukocytosis (Acute) Lumbar compression fracture (Acute) Left hip pain (Acute) Fall (Acute) Abdominal distension Loss of consciousness Acute hyponatremia (Acute) Laceration of scalp (Acute) Acute head trauma (Acute) Weakness (Acute) Right rotator cuff tear Degenerative arthritis of knee, bilateral Contusion of left knee Left knee DJD Fracture of metacarpal of left hand, closed Right rotator cuff tear arthropathy Gait disturbance Bilateral primary osteoarthritis of knee Closed fracture of greater trochanter of left femur (Acute) Dementia Dementia Chronic hyponatremia Recurrent falls Multiple rib fractures (Acute) COVID-19 (Acute) Type 2 diabetes mellitus Cervical spinal stenosis Cervical radiculopathy HTN (hypertension) Osteoarthritis of knees, bilateral Hypothyroid (Chronic) Vitamin B12 deficiency Carotid artery plaque (Acute) 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) Spondylolisthesis, acquired (Acute) Skin abnormality (Acute) Osteoporosis (Acute) Glaucoma (Acute) Esophageal reflux (Acute) Dyslipidemia (Acute) Disc degeneration, lumbosacral (Acute) Medical History Multiple fractures Compression fx, lumbar spine Closed rib fracture Weakness Fall Closed tibial fracture Rib fracture Compression fracture of L2 Left patella fracture Ambulatory dysfunction Fall DVT prophylaxis Thrombocytosis Hypochloremia Acute hyponatremia Unsteady gait Signs and symptoms involving cognition Numbness of left foot Colon cancer screening Surgical History History of tubal ligation Family History Sister Breast cancer Father Myocardial infarction Other No pertinent family history Denies family history of Colon cancer Ovarian cancer Prostate cancer Social History Smoking Status: Never smoker Tobacco Type: Declines Second Hand Exposure: No; Do You Dip or Chew Tobacco: No; Hx Alcohol Use: No Hx Substance Use: No Preferred Language: Kyrgyz Communication Ability: Effective Visual Impairment: No Limitations Hearing Ability: Normal Railroad Hand Required: No Beliefs That Will Affect Care: None marital status: Current Living Situation: Spouse Current Living Situation Comment: HOME HEALTH AIDE Feels Safe at Home: Yes Seatbelt Use: always Assistive Devices: Cane and Walker Review of Systems Review of Systems: All systems reviewed & are unremarkable except as noted in Subjective Physical Exam Physical Exam: Physical Exam: Vitals signs as noted above General Appearance: Thin, frail, elderly, no apparent distress Head: normocephalic, Atraumatic Eyes: normal inspection, EOMI Neck: supple, Trachea midline Respiratory/Chest: Normal breath sounds, CTA, left rib tenderness, no accessory muscle use Cardiovascular: S1, S2, No murmur Abdomen/GI:Soft, Non tender, Bowel sounds present Extremities/Musculoskeletal:normal inspection, no edema Neurologic/Psych:AAOX3, grossly no focal neurological deficits Skin: normal color, warm Results & Data Results & Data Vital Signs (Past 12 Hours) Vital Signs Temp Pulse Pulse Resp BP BP Pulse Ox 12/03/24 11:31 92 H 16 162/94 H 94 12/03/24 10:27 93 H 12/03/24 10:05 92 H 16 97 12/03/24 09:46 97 H 15 176/103 H 98 12/03/24 09:46 36.4 C L 97 H 15 176/103 H 98 O2 Del Method 12/03/24 11:31 Room Air 12/03/24 10:27 12/03/24 10:05 Room Air 12/03/24 09:46 Room Air 12/03/24 09:46 Room Air Laboratory Results Short CBC 12/03/24 Range/Units 10:12 WBC 13.42 H (4.8-10.8) K/ul Hgb 12.7 (12.0-16.0) g/dl Hct 38.6 (37.0-47.0) % Plt Count 431 H (130-400) K/uL BMP 12/03/24 10:12 Sodium 130 L Potassium 4.7 Chloride 93 L Carbon Dioxide 29 BUN 11 Creatinine 0.64 Glucose 226 H Calcium 9.1 Liver Function 12/03/24 Range/Units 10:12 Total Bilirubin 0.8 (0.2-1.0) mg/dl AST 22 (13-39) U/L ALT 22 (7-52) U/L Alkaline Phosphatase 106 H (34-104) U/L Albumin 4.5 (3.4-5.0) gm/dl Diagnostic Findings --CT head:No acute intracranial abnormality. --Chest CT:Acute minimally displaced fractures of the anterior left sixth and seventh ribs. No pneumothorax. Healing subacute nondisplaced fracture of the lateral left seventh rib with chronic bilateral rib fractures. Partially imaged subacute appearing L1 compression deformity with retropulsion redemonstrated. --Neck CT:No cervical spine fracture seen. ECG Additional Comments: --ERKG: Normal sinus rhythm, no ST-T wave changes, QTc 472. Code Status & VTE Plan VTE Prophylaxis Plan VTE Prophylaxis will be ordered: Yes (1) Fall Encounter type: initial encounter Qualified Code(s): W19.XXXA - Unspecified fall, initial encounter
--- OUTSIDE RECORDS SUMMARY | 2024-12-03 14:54 | External Medical Summary | Summary of Care ---
Author Name Unknown Organization [facility] Address [address] [facility] [place] [address] Phone [phone] Care Team Providers Care Water Purification Chemist Name Role Phone Tabitha Hall MD Primary Care Provider + Reason for Visit * Reason Onset Date Comments Hospital Follow-Up 11/26/2024 [facility] d/c 11/25 Encounter Details Date Type Department Care Team (Late st Contact Info) Description 11/26/2024 Telephone General Internal Medicine [facility] [place] [address] [facility] [place] [address] Saritha Woodson, NILE Hospital Follow-Up ([facility] d/c 11/25) Allergies Active Allergy Reactions Criticality Noted Date Comments Ibuprofen 06/11/2016 Alendronate Sodium 08/13/2016 Celecoxib Nausea/vomiting 12/22/2013 Cheese Flavoring Agent (Non-Screening) 08/27/2013 Monosodium Glutamate 08/13/2016 Penicillin G 06/11/2016 Salicylates Unknown 05/17/2021 Sulfa Antibiotics 06/11/2016 documented as of this encounter (statuses as of 11/29/2024) Medications BD Insulin Syringe 25G X 5/8" 1 ML (Insulin Syringe-Needle U-100)Indications:C ontrolled type 2 diabetes mellitus with hyperglycemia, without long-term current use of insulin (HCC),Type 2 diabetes mellitus with hemoglobin A1c goal of less than 8.0% (HCC) Use to inject B-12 injection once a month. 10 Each 08/23/20 Active FreeStyle French 3 [place] DeviceIndications:D M (diabetes mellitus), type 2, uncontrolled, [...] to breakfast or other meds) 90 Tablet 11/04/19 25 Active Vitamin B12 100 MCG Oral Tablet Take 1 Tablet by mouth in the morning. 30 Tablet 11/04/19 25 Active Sodium Chloride 1 GM Oral TabletIndications:S IADH (syndrome of inappropriate ADH production) ([facility]) [...] 11/04/19 25 Active Vitamin D3 50 MCG (2000 UT) Oral TabletIndications:A ge-related [...] as of this encounter (statuses as of 11/29/2024) Active Problems Problem Noted Date Diagnosed Date [...] as of this encounter (statuses as of 11/29/2024) Resolved Problems Problem Noted Date Diagnosed Date Resolved Date DM (diabetes mellitus), type 2, uncontrolled, with hyperosmolarity 06/29/2024 07/13/2024 Dislocation closed, finger, subsequent encounter 09/06/2020 07/13/2024 documented as of this encounter (statuses as of 11/29/2024) Immunizations Name Administration Dates Next Due COVID-19 [...] encounter Miscellaneous Notes * Telephone Encounter - Saritha Woodson RN - 11/29/2024 12:16 PM EST Transitions of Care Note Reason for Referral:Recent Admission Phone visit for follow up: BRAD Admitted to: [facility], Date: 11/17 Discharged to: home, Date: 11/25 Diagnosis driving hospitalization: Recurrent falls, gait disturbance, compression fx of lumbar spine Source/Contact: Authorized Hotel Reservation Agent, Nurse Burciaga at [facility] SUBJECTIVE Consent: Verbal consent for review of hospital discharge: Yes REVIEW OF SYSTEMS Patient/Other Reports: Current patient/caregiver problems or concerns: reports that Lilibeth "is almost back to baseline anddoing good" CV: Denies problems Pulmonary: Denies problems Chills/Sweats/Fever:Denies chills/sweats Denies fever Appetite:Denies problems such as nausea, vomiting, burning, decreased appetite Current diet: regular Bowel: denies problems Bladder: denies problems Wound (If applicable): N/A Pain:Denies Sleep:Denies problems FUNCTIONAL STATUS: ADL'S: Needs Assistance With:Transferring, uses walker IADL'S: Needs Assistance With:Attending to safety Cognitive and Mental Health: denies problems MEDICATION RECONCILIATION Medications: New medication(s) filled since hospitalization- lidocaine patch OBJECTIVE ASSESSMENT Medication Risk Assessment: No risks identified Did patient fail outpatient treatment? No Discharge instructions available for review? Yes PLAN Symptom Monitoring Interventions:Member/caregiver education - signs and symptoms to contact PrimaryCare (DO NOT DELETE-Three esparza symptoms patient is to report to PCP) 1. Falls/injury 2. Worsening pain 3. Changes in MS Labor Utilization SuperintendentBroomcorn Scraper of Care interventions/Action Plan: 5 - 7 day follow-up with PCP in place - Date: 12/02 Educated on role of BRAD completed with patient/caregiver. Educated patient/caregiver on patient right to have input on BRAD plan of care. Verification of Home Health/DME if indicated: YES patient is receiving PT Identified Care Gaps: Yes Care Gaps closed this call: Appointment made or confirmed, Medication optimization, and Transition of Care follow-up communication Re-evaluation of Plan of Care and progress towards goals achievement: Patient education this visit: Verbal, as above Plan to instructed to call Primary Care Provider with change in symptoms or as needed before next follow-up, discharge needs met, verbalizes understanding and agrees with plan. Saritha Woodson RN * Telephone Encounter - Saritha Woodson RN - 11/26/2024 8:35 AM EST Images from the original note were not included. Transitions of Care Note Reason for Referral:Recent Admission Phone visit for follow up: BRAD Admitted to: [facility], Date: 11/17 Discharged to: home, Date: 11/25 Diagnosis driving hospitalization: Recurrent falls, gait disturbance, compression fx of lumbar spine Attempted Phone Call First Attempt Call Outcome Unable to Leave Message documented in this encounter Plan of Treatment Upcoming Encounters Date Type Department Care Team (Late st Contact Info) Description 12/02/2024 11:20 AM EST Office Visit General Internal Medicine [facility] [address] [place] [address] Tabitha Hall MD [address] [place] [address] 12/27/2024 2:20 PM EDT Office Visit Neurology [facility] [address] [place], [place] [address] Alvin Aragon MD [address] [place], [place] [address] 01/05/2025 9:10 AM EDT Office Visit Pharmacy, [facility] [place] [address] [place], [place] [address] Pharmacist1, [facility] [address] [place], [place] [address] 01/05/2025 9:40 AM EDT Office Visit General Internal Medicine [facility] [address] [place], [place] [address] Tabitha Hall MD [address] [place], [place] [address] 03/23/2025 9:30 AM EDT Nurse [facility] [address] [place] [phone] Nurse Arlene Gary [address] [place], [place] [address] 05/17/2025 3:00 PM EDT Office Visit General Internal Medicine [facility] [place] [address] [place], [place] [address] Tabitha Hall MD [address] [place], [place] [address] 10/10/2025 9:40 AM EST [facility] [address] [place] [phone] Agustin Erickson MD [address] [employer] [place], [place] [address] Health Maintenance Due Date Last Done Comments [...] D LEVEL ONCE IN A LIFETIME-USE SMARTSET# [id number] Completed 06/28/2024, 06/12/2023, 10/24/2021, Additional history exists HPV (Gardasil) Vaccine Aged Out No lo nger eligible based on patient's age to complete this topic Hepatitis B Vaccine Aged Out No longe r eligible based on patient's age to complete this topic MENINGOCOCCAL (MENACTRA/MENVEO) Aged Out No longer eligible based on patient's age to complete this topic Meningitis B Vaccine (Bexsero/Trumemba) Aged Out No longer eligible based on patient's age to complete this topic documented as of this encounter Medical Devices Not on filedocumented as of this encounter Advance Directives Documents on File Type Date Recorded Patient Hotel Reservation Agent Expl anation POLST 06/06/2021 ANTOINETTE REESE ORDERS FOR LIFE-SUSTAINING TREATMENT Care Teams Water Purification Chemist Relationship Specialty Start Date End Date Tabitha Hall MD [address] [place] [address] PCP - General Internal Medicine 07/27/20 documented as of this encounter
--- OUTSIDE RECORDS SUMMARY | 2024-12-03 14:54 | External Medical Summary | Summary of Care ---
Author Name Unknown Organization [facility] Address [address] [facility] [address] Phone [phone] Care Team Providers Care Enrollment Representative Name Role Phone Tabitha Hall MD Primary Care Provider + Encounter Details Date Type Department Care Team (Late st Contact Info) Description 11/18/2024 Orders Only General Internal Medicine [facility] [place] [address] [facility] [place] [address] Tabitha Hall MD [address] [facility] [place] [address] Allergies Active Allergy Reactions Criticality Noted Date Comments Ibuprofen 06/11/2016 Alendronate Sodium 08/13/2016 Celecoxib Nausea/vomiting 12/22/2013 Cheese Flavoring Agent (Non-Screening) 08/27/2013 Monosodium Glutamate 08/13/2016 Penicillin G 06/11/2016 Salicylates Unknown 05/17/2021 Sulfa Antibiotics 06/11/2016 documented as of this encounter (statuses as of 11/18/2024) Medications BD Insulin Syringe 25G X 5/8" 1 ML (Insulin Syringe-Needle U-100)Indications:C ontrolled type 2 diabetes mellitus with hyperglycemia, without long-term current use of insulin (HCC),Type 2 diabetes mellitus with hemoglobin A1c goal of less than 8.0% (HCC) Use to inject B-12 injection once a month. 10 Each 08/23/20 Active FreeStyle French 3 [place] DeviceIndications:D M (diabetes mellitus), type 2, uncontrolled, [...] TabletIndications:S IADH (syndrome of inappropriate ADH production) ([facility]) Take 1 Tablet by mouth in the morning. 90 Tablet 3 11/04/19 25 Active Trulicity 0.75 MG/0.5ML Subcutaneous Solution Auto-injector (Dulaglutide)Indica tions:Controlled type 2 diabetes mellitus with hyperglycemia, without long-term current use of insulin ([facility]) Inject 0.75 mg under the skin once [...] long-term current use of insulin ([facility]) Take 1 Tablet by mouth 2 times [...] as of this encounter (statuses as of 11/18/2024) Active Problems Problem Noted Date Diagnosed Date [...] as of this encounter (statuses as of 11/18/2024) Resolved Problems Problem Noted Date Diagnosed Date Resolved Date DM (diabetes mellitus), type 2, uncontrolled, with hyperosmolarity 06/29/2024 07/13/2024 Dislocation closed, finger, subsequent encounter 09/06/2020 07/13/2024 documented as of this encounter (statuses as of 11/18/2024) Immunizations Name Administration Dates Next Due COVID-19 [...] Description 11/19/2024 10:30 AM EST Imaging Radiology [address] [facility] [place] [address] 11/19/2024 11:30 AM EST Imaging Vascular Lab, [address] [facility] [place] [address] 12/27/2024 2:20 PM EDT Office Visit Neurology [facility] [address] [place] [address] Alvin Aragon MD [address] [place] [address] 01/05/2025 9:10 AM EDT Office Visit Pharmacy, [facility] [place] [address] [place] [address] Pharmacist1, [facility] [address] [facility] [place] [address] 01/05/2025 9:40 AM EDT Office Visit General Internal Medicine [facility] [address] [place] [address] Taibtha Hall MD [facility] [place] [address] 03/23/2025 9:30 AM EDT Nurse Only Rheumatology [facility]er[facility] [place] [address] [place] [phone] Nurse [facility] [employer] [place] [address] 05/17/2025 3:00 PM EDT Office Visit General Internal Medicine [facility] [place] [address] [place] [address] Tabitha Hall MD 200 [facility] [place] [address] 10/10/2025 9:40 AM EST [facility] [place] [address] [place] [phone] Agustin Erickson MD [address] [employer] [place], [place] [address] Health Maintenance Due Date Last Done Comments Adult Wellness Visit 02/03/2004 Depression Monitoring 01/15/2024 01/14/2023 COVID-19 Vaccine ( season) 2024 06/25/2024, 07/22/2023, 02/21/2023, Additional history exists Albumin/Creatinine Ratio 03/05/2025 024, 01/14/2023, 04/15/2022, Additional history exists Diabetic Eye Exam 04/14/2025 04/14/2024, , 01/25/2021, Additional history exists HbA1c 05/10/2025 11/10/2024, 09/2 12/2023, 03/05/2024, Additional history exists Diabetic Foot Exam [...] D LEVEL ONCE IN A LIFETIME-USE SMARTSET# [id number] Completed 06/28/2024, 06/12/2023, 10/24/2021, Additional history exists [...] Procedure Name Priority Date/Time Associated Diagnosis Comments CHEMISTRY-OUTSIDE Routine 11/16/2024 documented in this encounter Results * (ABNORMAL) CHEMISTRY-OUTSIDE (11/16/2024) Not all results display below - see scan for full detail OUTSIDE LAB (SEE SCANNED REPORT) Comment:SCAN INCLUDES - CMP, CBC CREATININE 0.54(A) 0.6 - 1.2 MG/DL OUTSIDE LAB (SEE SCANNED REPORT) EGFR 89.61 OUTSIDE LA B (SEE SCANNED REPORT) POTASSIUM 4.5 3.5 - 5.1 MMOL/L OUTSIDE LAB (SEE SCANNED REPORT) GLUCOSE 150(A) 70 - 99 MG/DL OUTSIDE LAB (SEE SCANNED REPORT) HOURS FASTING OUTSID E LAB (SEE SCANNED REPORT) TRIGLYCERIDES-OUT SIDE LAB OUTSIDE LAB (SEE SCANNED REPORT) CHOLESTEROL-OUTSI DE LAB OUTSIDE LAB (SEE SCANNED REPORT) HDL-OUTSIDE LAB OUTS STEPH LAB (SEE SCANNED REPORT) CHOL/HDL RATIO-OUTSIDE LAB OUTSIDE LA B (SEE SCANNED REPORT) LDL (CALCULATED)-OUTS STEPH LAB OUTSIDE LAB (SEE SCANNED REPORT) LDL (DIRECT MEASURE)-OUTSIDE LAB OUTSIDE LAB (SEE SCANNED REPORT) HEMOGLOBIN, X2P-DLTSNLC LAB OUTSIDE LAB (SEE SCANNED REPORT) PHOSPHORUS-OUTSID E LAB OUTSIDE LAB (SEE SCANNED REPORT) PTH-OUTSIDE LAB OUTS STEPH LAB (SEE SCANNED REPORT) MICROALBUMIN RATIO-OUTSIDE LAB OUTSIDE LA B (SEE SCANNED REPORT) PROTEIN, UA-OUTSIDE LAB OUTSIDE LAB (SEE SCANNED REPORT) HGB 11.4(A) 12.0 - 16.0 G/DL OUTSIDE LAB (SEE SCANNED REPORT) 11/16/2024 us Jeff Noe MD LABORATORY Final Result OUTSIDE LAB (SEE SCANNED REPORT) documented in this encounter Advance Directives Documents on File Type Date Recorded Patient Construction Driver Expl anation POLST 06/06/2021 POLST LIANNE REESE ORDERS FOR LIFE-SUSTAINING TREATMENT Care Teams Enrollment Representative Relationship Specialty Start Date End Date Tabitha Hall MD [address] [place] [address] PCP - General Internal Medicine 07/27/20 documented as of this encounter
--- OUTSIDE RECORDS SUMMARY | 2024-12-03 14:54 | External Medical Summary | Summary of Care ---
Author Name Unknown Organization [facility] Address [address] [place] [address] Phone [phone] Care Team Providers Care Print Color Matcher Name Role Phone Tabitha Hall MD Primary Care Provider + Reason for Visit * Reason Comments eRx-Medication Refill Encounter Details Date Type Department Care Team (Late st Contact Info) Description 11/30/2024 Refill General Internal Medicine [facility] [address] [facility] [place] [address] Tabitha Hall MD 200 [place] [address] Allergies Active Allergy Reactions Criticality Noted Date Comments Ibuprofen 06/11/2016 Alendronate Sodium 08/13/2016 Celecoxib Nausea/vomiting 12/22/2013 Cheese Flavoring Agent (Non-Screening) 08/27/2013 Monosodium Glutamate 08/13/2016 Penicillin G 06/11/2016 Salicylates Unknown 05/17/2021 Sulfa Antibiotics 06/11/2016 documented as of this encounter (statuses as of 12/01/2024) Medications BD Insulin Syringe 25G X 5/8" 1 ML (Insulin Syringe-Needle U-100)Indications:C ontrolled type 2 diabetes mellitus with hyperglycemia, without long-term current use of insulin (HCC),Type 2 diabetes mellitus with hemoglobin A1c goal of less than 8.0% (HCC) Use to inject B-12 injection once a month. 10 Each 08/23/20 Active FreeStyle French 3 Wellman DeviceIndications:D M (diabetes mellitus), type 2, uncontrolled, [...] as of this encounter (statuses as of 12/01/2024) Active Problems Problem Noted Date Diagnosed Date [...] as of this encounter (statuses as of 12/01/2024) Resolved Problems Problem Noted Date Diagnosed Date Resolved Date DM (diabetes mellitus), type 2, uncontrolled, with hyperosmolarity 06/29/2024 07/13/2024 Dislocation closed, finger, subsequent encounter 09/06/2020 07/13/2024 documented as of this encounter (statuses as of 12/01/2024) Immunizations Name Administration Dates Next Due COVID-19 [...] encounter Miscellaneous Notes * Telephone Encounter - Yosvany Fatima [facility] - 11/30/2024 4:48 PM ESTRefused Prescriptions: Disp Refills Lidocaine 5 % External Patch (Lidoderm) 30 Pat*11 Sig: APPLY TOPICALLY TRANSDERMALLY EVERY MORNING TO LOWER BACKRefused By: YOSVANY RAMIREZ for Refusal: Patient Should Contact Provider First * Telephone Encounter - Yosvany Fatima [facility] - 11/30/2024 4:46 PM EST Pending Prescriptions: Disp Refills Lidocaine 5 % External Patch (Lidoderm) [*30 Pat*11 Sig: APPLY TOPICALLY TRANSDERMALLY EVERY MORNING TO LOWER BACK Last Visit: 11/10/2024 (in office), 10/31/2020 (telemedicine) Next Visit: 12/02/2024 If no future appointments scheduled, and last appointment is greater than a year ago, please schedule patient for a follow-up appointment Last date the medication was ordered: ? Pharmacy: [facility] [place] [address] [address] Is this request for a controlled substance? No Urine Drug Screen:No results found for this or any previous visit. Patient Phone Numbers Labs: Lab Results Component Value Date/Time CREAT 0.54 (A) 11/16/2024 12:00 AM CREAT 0.5 10/12/2020 10:00 AM POTASSIUM 4.5 11/16/2024 12:00 AM POTASSIUM 4.6 10/12/2020 10:00 AM TSH 2.78 11/10/2024 11:47 AM TSH 2.35 07/27/2020 09:31 AM LDL 60 11/10/2024 11:47 AM LDL 125 06/06/2021 07:59 AM LDL 116 07/27/2020 09:31 AM LDL 07/27/2020 09:31 AM Uninterpretable, recommend direct LDL cholesterol testing. ALT 36 (H) 11/10/2024 11:47 AM ALT 16 08/17/2020 04:32 PM HGBA1C 7.9 (H) 11/10/2024 10:37 AM HGBA1C 7.2 (H) 07/27/2020 09:31 AM documented in this encounter Plan of Treatment Upcoming Encounters Date Type Department Care Team (Late st Contact Info) Description 12/02/2024 11:20 AM EST Office Visit General Internal Medicine [facility] [address] [place] [address] Tabitha Hall MD [address] [place] [address] 12/27/2024 2:20 PM EDT Office Visit Neurology [facility] [address] [place] [address] Alvin Aragon MD 200 [facility] [place], [place] [address] 01/05/2025 9:10 AM EDT Office Visit Pharmacy, [facility] [place] [address] [facility] [address] [place], [place] [address] Pharmacist1, [facility] [place] [place] [address] 01/05/2025 9:40 AM EDT Office Visit General Internal [facility] [place] [address] [place], [place] [address] Tabitha Hall MD [address] [place], [place] [address] 03/23/2025 9:30 AM EDT [facility] [address] [place] [phone] Nurse [facility] [employer] [place], [place] [address] 05/17/2025 3:00 PM EDT Office Visit General Internal Medicine [facility] [place] [address] [place], [place] [address] Tabitha Hall MD 200 [facility] [place] [address] 10/10/2025 9:40 AM EST [facility] [place] [address] [place] [phone] Agustin Erickson MD [address] [employer] [place], [place] [address] Health Maintenance Due Date Last Done Comments [...] D LEVEL ONCE IN A LIFETIME-USE SMARTSET# [id number] Completed 06/28/2024, 06/12/2023, 10/24/2021, Additional history exists [...] on File Type Date Recorded 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
--- OUTSIDE RECORDS SUMMARY | 2024-12-03 14:54 | External Medical Summary | Summary of Care ---
Author Name Unknown Organization [facility] Address [address] [place] [address] Phone [phone] Care Team Providers Care Venetian Blind Cleaner And Repairer Name Role Phone Tabitha Hall MD Primary Care Provider + Encounter Details Date Type Department Care Team (Late st Contact Info) Description 11/16/2024 Result Scan Unspecified Department <No scans attached> Allergies Active Allergy Reactions [...] month. 10 Each 1 08/23/20 22 Active Applauze French 3 [place]land DeviceIndications:D M (diabetes mellitus), type 2, uncontrolled, [...] of inappropriate ADH production) ([facility]) Take 1 Tablet by mouth in the morning. 90 Tablet 3 11/04/19 25 Active Trulicity 0.75 MG/0.5ML Subcutaneous Solution Auto-injector (Dulaglutide)Indica tions:Controlled type 2 diabetes mellitus with hyperglycemia, without long-term current use of insulin ([facility]) Inject 0.75 mg under the [...] current use of insulin ([facility]) Take 1 Tablet by mouth [...] Description 11/19/2024 10:30 AM EST Imaging Radiology [facility] 2nd [facility] [address] [facility] [place] [address] 11/19/2024 11:30 AM EST Imaging Vascular Lab, [address] [facility] [place] [address] 12/27/2024 2:20 PM EDT Office Visit Neurology [facility] [address] [place] [address] Alvin Aragon MD [address] [place] [address] 01/05/2025 9:10 AM EDT Office [facility] [place] [address] [place] [address] Pharmacist1, [facility] [address] [place] [address] 01/05/2025 9:40 AM EDT Office Visit General Internal Medicine [facility] [place] [address] [place] [address] Tabitha Hall MD [address] [place] [address] 03/23/2025 9:30 AM EDT Nurse [facility] [address] [place] [phone] Abdirahman Nurse Arlene Barajas [address] [facility] [place], [place] [address] 05/17/2025 3:00 PM EDT Office Visit [facility] [address] [facility] [place] [address] Tabitha Hall MD 200 [facility] [place] [address] 10/10/2025 9:40 AM EST [facility] [address] [place] [phone] Agustin Erickson MD [address] [facility] [place], [place] [address] Health Maintenance Due Date Last Done Comments Adult Wellness Visit 02/03/2004 Depression Monitoring 01/15/2024 01/14/2023 COVID-19 Vaccine ( season) 2024 06/25/2024, 07/22/2023, 02/21/2023, Additional history exists Albumin/Creatinine Ratio 03/05/2025 024, 01/14/2023, 04/15/2022, Additional history exists Diabetic Eye Exam 04/14/2025 04/14/2024, , 01/25/2021, Additional history exists HbA1c 05/10/2025 11/10/2024, 092 12/2023, 03/05/2024, Additional history exists Diabetic Foot Exam 11/10/2025 11/10/2024, 0 01/14/2023, 06/07/2021, Additional history exists TSH 11/10/2025 11/10/2024, 073 , 03/05/2024, Additional history exists DXA Scan 08/18/2026 08/18/2024, 11/0 11/2021, 07/31/2020 DTap/Tdap Vaccines (3 - Td or Tdap) 06/27/2033 06/27/2023, 06/03/2012 Zoster Vaccines Completed 07/01/2019, 03/06, 10/06/2009 Pneumococcal Vaccine: 50+ Years Completed 06/07/2021, 01/07/2018, 03/21/2015 Influenza Vaccine (FLU shot) Completed , 06/12/2023, 07/24/2021, Additional history exists VITAMIN D LEVEL ONCE IN A LIFETIME-USE SMARTSET# [id number] Completed 06/28/2024, 06/12/2023, 10/24/2021, Additional history exists [...] Procedure Name Priority Date/Time Associated Diagnosis Comments RADIOLOGY SCANNED RESULT 11/16/2024 documented in this encounter Results * RADIOLOGY SCANNED RESULT (11/16/2024) 11/16/2024 us No Physician Data Unknown DIAGNOSTIC RADIOLOGY S ERVICES Final Result documented in this encounter Advance Directives Documents on File Type Date Recorded Patient Safety Supervisor Expl anation POLST 06/06/2021 POLST LIANNE REESE ORDERS FOR LIFE-SUSTAINING TREATMENT Care Teams Venetian Blind Cleaner And Repairer Relationship Specialty Start Date End Date Tabitha Hall MD 200 [place] [address] PCP - General Internal Medicine 07/27/20 documented as of this encounter
[2024-12-03] MEDS ORDERED: ONDANSETRON INJ 2 MG/ML 2 ML VIAL IV PRN (16:00)
[2024-12-03] MEDS ORDERED: CARBOHYDRATES FOR HYPOGLYCEMIA PO PRN (16:00)
[2024-12-03] MEDS ORDERED: DEXTROSE 50% 50 ML SYRINGE IV PRN (16:00)
[2024-12-03] MEDS ORDERED: GLUCOSE 40% GEL 15 GM TUBE PO PRN (16:00)
[2024-12-03] MEDS ORDERED: GLUCOSE 10 TAB/TUBE PO PRN (16:00)
[2024-12-03] MEDS ORDERED: GLUCAGON FOR INJ 1 MG VIAL SQ PRN (16:00)
[2024-12-03] MEDS: ACETAMINOPHEN 325 MG TAB PO PRN (16:47)
[2024-12-03] MEDS: LIDOCAINE 5% 1 PATCH TD SCH (16:48)
[2024-12-03] MEDS: MAGNESIUM OXIDE 400 MG TAB PO SCH (16:49)
[2024-12-03] MEDS: ROSUVASTATIN CALCIUM 5 MG TAB PO SCH (16:50)
[2024-12-03] MEDS: INSULIN ASPART PER UNIT CHARGE SC SCH (17:17)
[2024-12-03] MEDS: DICLOFENAC SOD 1% GEL 100 GM TUBE EXT SCH (17:17)
[2024-12-03] MEDS: LANTUS PER UNIT CHARGE SQ SCH (20:45)
[2024-12-03] MEDS: HEPARIN SOD 5,000 UNIT/0.5 ML VIAL SQ SCH (20:45)
[2024-12-03] MEDS: TRAVOPROST Z 0.004% OPH SOLN 2.5 ML BTL OPB SCH (20:45)
[2024-12-04] MEDS: LEVOTHYROXINE SODIUM 25 MCG TABLET PO SCH (06:06)
[2024-12-04 07:28] LABS: Hematocrit (blood only) 36.6 % (37.0-47.0); Hemoglobin 12.3 g/dl (12.0-16.0); Mean Corpuscular Hemoglobin 27.9 pg (25.0-34.0); Mean Corpuscular Hgb Conc 33.6 g/dL (32.0-36.0); Mean Platelet Volume 8.9 fL (9.4-12.4); Platelet Count 412 K/uL (130-400); RDW Coefficient of Variation 12.7 % (11.5-14.5); RDW Standard Deviation 38.9 fL (36.4-46.3); Red Blood Count 4.41 M/uL (4.20-5.40); White Blood Count 10.57 K/ul (4.8-10.8)
[2024-12-04 07:47] LABS: BUN Creatinine Ratio 18.4 (10-20); Calcium 8.2 mg/dl (8.6-10.3); Creatinine Clr Calc Pharmacy 33.4 ml/min; Magnesium 2.1 mg/dl (1.7-2.4); Potassium 4.5 mmol/L (3.5-5.1)
[2024-12-04] MEDS: DULoxetine HCL 30 MG CAP PO SCH (08:32)
[2024-12-04] MEDS: CHOLECALCIFEROL 25 MCG (1000 UNITS) TAB PO SCH (08:32)
[2024-12-04] MEDS: ASCORBIC ACID 500 MG TAB PO SCH (08:32)
[2024-12-04] MEDS: CALCIUM 600MG + VIT D 400 IU TAB PO SCH (08:32)
[2024-12-04] MEDS: CYANOCOBALAMIN (B-12) 100 MCG TABLET PO SCH (08:32)
[2024-12-04] MEDS: DULoxetine HCL 60 MG CAP PO SCH (08:32)
[2024-12-04] MEDS: SODIUM CHLORIDE 1 GM TABLET PO SCH (08:33)
[2024-12-04] MEDS: MoRPHine SULFATE 2 MG/ML CARP IV PRN (10:42)
[2024-12-04] MEDS: oxyCODONE HCL IR 5 MG TAB (IMMEDIATE RELEASE) PO PRN (12:33)
--- NOTE | 2024-12-04 12:51 | Electrocardiogram Report ---
Test Reason : Blood Pressure : */* mmHG Vent. Rate : 92 BPM Atrial Rate : 92 BPM P-R Int : 162 ms QRS Dur : 84 ms QT Int : 382 ms P-R-T Axes : 27 -8 58 degrees QTcB Int : 472 ms Normal sinus rhythm Minimal voltage criteria for LVH, may be normal variant ( Victorino product ) Borderline ECG When compared with ECG of 30-Jun-2024 11:42, No significant change was found Confirmed by Jairo Newsome ([id number]) on 12/04/2024 12:51:45 PM Referred By: Abimael adkins [facility] Confirmed By: Jairo Newsome
--- NOTE | 2024-12-04 14:56 | Hospitalist Progress Note ---
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 No pneumothorax. Healing subacute nondisplaced fracture of the lateral left seventh rib with chronic bilateral rib fractures.Partially imaged subacute appearing L1 compression deformity with retropulsion redemonstrated. Plan: -stop IV morphine, start PO oxycodone 5mg for severe pain, dilaudid 0.5 mg for breakthrough, may consider lyrica tomorrow -start voltaren cream -PT/OT ordered -Fall precautions -Incentive spirometry Leukocytosis -Likely reactive -No obvious source of infection -Monitor Chronic hyponatremia/SIADH -Sodium 130 -Continue home salt tablets -Fluid restriction -Monitor sodium levels DM Type II -Last HbA1c 8 point -hold oral diabetic meds -ISS, basal Insulin, Accu checks, Diabetic diet -Monitor blood glucose levels Hypothyroidism -Continue levothyroxine Feeding/fluids: vegetarian, regular Analgesia: tylenol, oxy, IV dilaudid breakthrough Sedation: na Thromboprophylaxis: heparin Head up position: na Ulcer prophylaxis: na Glycemic control: insulin protocol Spontaneous breathing trial: na Bowel care: miralax scheduled daily and prn (given opioid use) Indwelling catheter removal: na Deescalation of antibiotics: na I spent a total of 50 minutes in direct patient care, including [id number] time with the patient and/or family, reviewing medical records, ordering and reviewing diagnostic tests, and coordinating care with other healthcare providers. This time includes: history taking, physical examination, medical decision making, counseling, ECG interpretation, imaging interpretation, lab interpretation, orders, and education, excluding time spent in the performance of separately billed services. Admission and Anticipated Discharge Date Admission Date: December 03, 2024 Subjective Patient seen and examined at bedside. Ms. Kong states that she is in pain on her left side by her rib cage. She was alert and orriented to self and place but not time during my examination. Review of Systems Review of Systems: -unable to properly answer due to mental status Physical Exam Physical Exam: Gen: A&O 2 NAD HEENT: NCAT, EOMI, not icteric. External ears normal. No rhinorrhea. Moist mucous membranes. Neck: Supple, full range of motion, no observable masses, No meningeal sign. Lungs: No Respiratory distress. CV: RRR, no edema. Abdomen: Soft, nondistended, No rebound tenderness. MSK: tenderness on left rib cage Skin: No rashes, petechiae, lesions. Normal color per patient. Neuro: Normal Gait, Grossly intact. Results & Data Results & Data Vital Signs (Past 12 Hours) Vital Signs Temp Pulse Resp BP Pulse Ox O2 Del Method 12/04/24 08:02 90 20 179/85 H 97 Room Air 12/04/24 06:59 36.6 C 93 H 19 184/84 H 97 Room Air Laboratory Results -personally reviewed, sodium at baseline 131, no leukocytosis, creatinine stable Medications Administered Calcium/Vitamin D (Calcium 600mg + Vit D 400 Iu Tab) 1 tab PO DAILY LOGAN Stop: 01/03/25 08:59 Last Admin: 12/04/24 08:32 Dose: 1 tab Documented By: SANJIV Cyanocobalamin (Cyanocobalamin (B-12) 100 Mcg Tablet) 100 mcg PO DAILY LOGAN Stop: 01/03/25 08:59 Last Admin: 12/04/24 08:32 Dose: 100 mcg Documented By: SANJIV Duloxetine HCl (Duloxetine Hcl 60 Mg Cap) 60 mg PO DAILY LOGAN Stop: 01/03/25 08:59 Last Admin: 12/04/24 08:32 Dose: 60 mg Documented By: SANJIV Duloxetine HCl (Duloxetine Hcl 30 Mg Cap) 30 mg PO DAILY LOGAN Stop: 01/03/25 08:59 Last Admin: 12/04/24 08:32 Dose: 30 mg Documented By: SANJIV Heparin Sodium (Porcine) (Heparin Sod 5,000 Unit/0.5 Ml Vial) 5,000 units SQ Q12 LOGAN Stop: 01/02/25 20:59 Last Admin: 12/04/24 08:57 Dose: 5,000 units Documented By: Admin: 12/03/24 20:45 Dose: 5,000 units Documented By: BULMARO Insulin Aspart (Insulin Aspart Per Unit Charge) 0 units SC ACHS LOGAN Stop: 01/02/25 16:29 Last Admin: 12/04/24 12:54 Dose: Not Given Documented By: Admin: 12/04/24 08:57 Dose: 3 units Documented By: SANJIV Co-signed By: SHERRY Admin: 12/03/24 20:45 Dose: 2 units Documented By: BULMARO Co-signed By: ADRIENNE Admin: 12/03/24 17:17 Dose: 2 units Documented By: SANJIV Co-signed By: DOLORES Insulin Glargine (Lantus Per Unit Charge) 5 units SQ BID [facility] Stop: 01/02/25 20:59 Last Admin: 12/04/24 08:59 Dose: 5 units Documented By: SANJIV Co-signed By: SCOOTER Admin: 12/03/24 20:45 Dose: 5 units Documented By: BULMARO Co-signed By: ADRIENNE Levothyroxine Sodium (Levothyroxine Sodium 25 Mcg Tablet) 25 mcg PO SuFrSa@0630 [facility] Stop: 01/03/25 06:29 Last Admin: 12/04/24 06:06 Dose: 25 mcg Documented By: BULMARO Lidocaine (Lidocaine 5% 1 Patch) 1 patch TD QAM [facility] Stop: 01/02/25 15:59 Last Admin: 12/04/24 08:33 Dose: 1 patch Documented By: Admin: 12/03/24 16:48 Dose: 1 patch Documented By: SANJIV Magnesium Oxide (Magnesium Oxide 400 Mg Tab) 400 mg PO MoWeFr [facility] Stop: 01/02/25 15:59 Last Admin: 12/03/24 16:49 Dose: 400 mg Documented By: SANJIV Miscellaneous (Remove Lidoderm Patch) 1 each N/A DAILY@2100 [facility] Stop: 01/02/25 20:59 Last Admin: 12/03/24 20:46 Dose: 1 each Documented By: BULMARO Oxycodone HCl (Oxycodone Hcl Ir 5 Mg Tab (Immediate Release)) 5 mg PO Q4 PRN PRN Reason: Pain Stop: 12/18/24 11:47 Last Admin: 12/04/24 12:33 Dose: 5 mg Documented By: SANJIV Rosuvastatin Calcium (Rosuvastatin Calcium 5 Mg Tab) 5 mg PO MoWeFr@1600 [facility] Stop: 01/02/25 15:59 Last Admin: 12/03/24 16:50 Dose: 5 mg Documented By: SANJIV Sodium Chloride (Sodium Chloride 1 Gm Tablet) 1 gm PO DAILY [facility] Stop: 01/03/25 08:59 Last Admin: 12/04/24 08:33 Dose: 1 gm Documented By: SANJIV Travoprost (Travoprost Z 0.004% Oph Soln 2.5 Ml Btl) 1 drops OPB HS [facility]AN Stop: 01/02/25 20:59 Last Admin: 12/03/24 20:45 Dose: 1 drops Documented By: BULMARO Vitamin D (Cholecalciferol 25 Mcg (1000 Units) Tab) 50 mcg PO QAM [facility] Stop: 01/03/25 08:59 Last Admin: 12/04/24 08:32 Dose: 50 mcg Documented By: SANJIV (1) Fall Encounter type: initial encounter Qualified Code(s): W19.XXXA - Unspecified fall, initial encounter
[2024-12-04] MEDS: ACETAMINOPHEN 500 MG TAB PO SCH (15:35)
[2024-12-04] MEDS: POLYETHYLENE (MIRALAX) 17 GM PACK PO SCH (15:35)
[2024-12-04] MEDS: amLODIPine BESYLATE 5 MG TAB PO SCH (17:17)
[2024-12-04] MEDS: DICLOFENAC SOD 1% GEL 100 GM TUBE EXT SCH (21:05)
[2024-12-05 07:22] LABS: Albumin Globulin Ratio 1.4 (0.9-2); Albumin Level 3.9 gm/dl (3.4-5.0); BUN Creatinine Ratio 15.7 (10-20); Bilirubin,Total 0.7 mg/dl (0.2-1.0); Calcium 8.2 mg/dl (8.6-10.3); Creatinine Clr Calc Pharmacy 36.3 ml/min; Globulin 2.7 gm/dl (2.5-4.0); Potassium 5.1 mmol/L (3.5-5.1); Total Protein 6.6 gm/dl (6.0-8.3)
[2024-12-05] MEDS: HYDROmorphone INJ 0.5 MG/0.5 ML SYR IV PRN (07:29)
--- NOTE | 2024-12-05 12:44 | Hospitalist Progress Note ---
Date of Service December 05, 2024 Assessment & Plan (1) Fall: (2) Rib fracture: Plan: Recurrent falls Acute displaced left sixth and seventh rib fractures Ambulatory dysfunction Subacute Age-related osteoporosis with current pathologic fracture, L1 vertebra --Chest CT:Acute minimally displaced fractures of the anterior left sixth and seventh ribs. No pneumothorax. Healing subacute nondisplaced fracture of the lateral left seventh rib with chronic bilateral rib fractures.Partially imaged subacute appearing L1 compression deformity with retropulsion redemonstrated. Plan: -continue PO oxycodone 5mg for severe pain, dilaudid 0.5 mg for breakthrough -continue voltaren cream -PT/OT ordered -Fall precautions -Incentive spirometry Acute Metabolic Encephalopathy -improved today Leukocytosis -Likely reactive -No obvious source of infection -Monitor Chronic hyponatremia/SIADH -Sodium 129 -Continue home salt tablets -will give 500 cc LR slowly today, appears dry on exam -caution given above -start multivitamin, folic acid, thiamine DM Type II -Last HbA1c 8 point -hold oral diabetic meds -ISS, basal Insulin, Accu checks, Diabetic diet -Monitor blood glucose levels Hypothyroidism -Continue levothyroxine Feeding/fluids: vegetarian, regular Analgesia: tylenol, oxy, IV dilaudid breakthrough Sedation: na Thromboprophylaxis: heparin Head up position: na Ulcer prophylaxis: na Glycemic control: insulin protocol Spontaneous breathing trial: na Bowel care: miralax scheduled daily and prn (given opioid use) Indwelling catheter removal: na Deescalation of antibiotics: na I spent a total of 45 minutes in direct patient care, including [id number] time with the patient and/or family, reviewing medical records, ordering and reviewing diagnostic tests, and coordinating care with other healthcare providers. This time includes: history taking, physical examination, medical decision making, counseling, ECG interpretation, imaging interpretation, lab interpretation, orders, and education, excluding time spent in the performance of separately billed services. Admission and Anticipated Discharge Date Admission Date: December 03, 2024 Subjective Patient seen and examined at bedside. Patient mentation better today, patient alert and oriented x 3. Patient states she is upset on why she is so weak. Otherwise her pain is relatively well-controlled. Review of Systems Review of Systems: CONSTITUTIONAL: Patient denies fevers, chills, sweats and weight changes. EYES: Patient denies any visual symptoms. EARS, NOSE, AND THROAT: No difficulties with hearing. No symptoms of rhinitis or sore throat. CARDIOVASCULAR: Patient denies chest pains, palpitations, orthopnea and paroxysmal nocturnal dyspnea. RESPIRATORY: No dyspnea on exertion, no wheezing or cough. GI: No nausea, vomiting, diarrhea, constipation, abdominal pain, hematochezia or melena. : No urinary hesitancy or dribbling. No nocturia or urinary frequency. No abnormal urethral discharge. MUSCULOSKELETAL: some left sided rib pain, improved from yesterday, diffuse weakness NEUROLOGIC: No chronic headaches, no seizures. Patient denies numbness, tingling or weakness. PSYCHIATRIC: Patient denies problems with mood disturbance. No problems with anxiety. ENDOCRINE: No excessive urination or excessive thirst. DERMATOLOGIC: Patient denies any rashes or skin changes. Physical Exam Physical Exam: Gen: A&O 3 NAD HEENT: NCAT, EOMI, not icteric. External ears normal. No rhinorrhea. Moist mucous membranes. Neck: Supple, full range of motion, no observable masses, No meningeal sign. Lungs: No Respiratory distress. CV: RRR, no edema. Abdomen: Soft, nondistended, No rebound tenderness. MSK: tenderness on left rib cage, improved from prior Skin: No rashes, petechiae, lesions. Normal color per patient. Neuro: Normal Gait, Grossly intact. Results & Data Results & Data Vital Signs (Past 12 Hours) Vital Signs Temp Pulse Resp BP Pulse Ox O2 Del Method 12/05/24 06:58 36.6 C 84 16 148/79 H 94 Room Air Laboratory Results -personally reviewed, low Na and chloride today Medications Administered Acetaminophen (Acetaminophen 500 Mg Tab) 1,000 mg PO Q8H [facility] Stop: 01/03/25 14:59 Last Admin: 12/05/24 06:09 Dose: 1,000 mg Documented By: Admin: 12/04/24 22:03 Dose: 1,000 mg Documented By: Admin: 12/04/24 15:35 Dose: 1,000 mg Documented By: SANJIV Amlodipine Besylate (Amlodipine Besylate 5 Mg Tab) 10 mg PO QAM [facility] Stop: 01/03/25 16:44 Last Admin: 12/05/24 07:33 Dose: 10 mg Documented By: Admin: 12/04/24 17:17 Dose: 10 mg Documented By: SANJIV Calcium/Vitamin D (Calcium 600mg + Vit D 400 Iu Tab) 1 tab PO DAILY [facility] Stop: 01/03/25 08:59 Last Admin: 12/05/24 07:30 Dose: 1 tab Documented By: Admin: 12/04/24 08:32 Dose: 1 tab Documented By: SANJIV Cyanocobalamin (Cyanocobalamin (B-12) 100 Mcg Tablet) 100 mcg PO DAILY [facility] Stop: 01/03/25 08:59 Last Admin: 12/05/24 07:30 Dose: 100 mcg Documented By: Admin: 12/04/24 08:32 Dose: 100 mcg Documented By: SANJIV Diclofenac Sodium (Diclofenac Sod 1% Gel 100 Gm Tube) 4 gm EXT BID [facility]; Protocol Stop: 01/03/25 20:59 Last Admin: 12/05/24 07:31 Dose: 4 gm Documented By: Admin: 12/04/24 21:05 Dose: 4 gm Documented By: BULMARO Duloxetine HCl (Duloxetine Hcl 60 Mg Cap) 60 mg PO DAILY [facility] Stop: 01/03/25 08:59 Last Admin: 12/05/24 07:30 Dose: 60 mg Documented By: Admin: 12/04/24 08:32 Dose: 60 mg Documented By: SANJIV Duloxetine HCl (Duloxetine Hcl 30 Mg Cap) 30 mg PO DAILY [facility] Stop: 01/03/25 08:59 Last Admin: 12/05/24 07:31 Dose: 30 mg Documented By: Admin: 12/04/24 08:32 Dose: 30 mg Documented By: SANJIV Heparin Sodium (Porcine) (Heparin Sod 5,000 Unit/0.5 Ml Vial) 5,000 units SQ Q12 [facility] Stop: 01/02/25 20:59 Last Admin: 12/05/24 07:42 Dose: 5,000 units Documented By: Admin: 12/04/24 21:05 Dose: 5,000 units Documented By: Admin: 12/04/24 08:57 Dose: 5,000 units Documented By: Admin: 12/03/24 20:45 Dose: 5,000 units Documented By: BULMARO Hydromorphone HCl (Hydromorphone Inj 0.5 Mg/0.5 Ml Syr) 0.5 mg IV Q4 PRN PRN Reason: Breakthrough Pain Stop: 12/18/24 11:47 Last Admin: 12/05/24 07:29 Dose: 0.5 mg Documented By: SANJIV Insulin Aspart (Insulin Aspart Per Unit Charge) 0 units SC ACHS [facility] Stop: 01/02/25 16:29 Last Admin: 12/05/24 12:03 Dose: 2 units Documented By: SANIJV Co-signed By: CHIP Admin: 12/05/24 09:25 Dose: 2 units Documented By: SANJIV Co-signed By: SCOOTER Admin: 12/04/24 21:04 Dose: 1 units Documented By: BULMARO Co-signed By: GLORIA Admin: 12/04/24 17:17 Dose: 3 units Documented By: SANJIV Co-signed By: [facility] Admin: 12/04/24 12:54 Dose: Not Given Documented By: Admin: 12/04/24 08:57 Dose: 3 units Documented By: SANJIV Co-signed By: SCOOTER Admin: 12/03/24 20:45 Dose: 2 units Documented By: BULMARO Co-signed By: ADRIENNE Admin: 12/03/24 17:17 Dose: 2 units Documented By: SANJIV Co-signed By: DOLORES Insulin Glargine (Lantus Per Unit Charge) 5 units SQ BID [facility] Stop: 01/02/25 20:59 Last Admin: 12/05/24 09:25 Dose: 5 units Documented By: SANJIV Co-signed By: [facility] Admin: 12/04/24 21:03 Dose: 5 units Documented By: BULMARO Co-signed By: GLORIA Admin: 12/04/24 08:59 Dose: 5 units Documented By: SANJIV Co-signed By: [facility] Admin: 12/03/24 20:45 Dose: 5 units Documented By: BULMARO Co-signed By: ADRIENNE Levothyroxine Sodium (Levothyroxine Sodium 25 Mcg Tablet) 25 mcg PO SuFrSa@0630 [facility] Stop: 01/03/25 06:29 Last Admin: 12/05/24 06:09 Dose: 25 mcg Documented By: Admin: 12/04/24 06:06 Dose: 25 mcg Documented By: BULMARO Lidocaine (Lidocaine 5% 1 Patch) 1 patch TD QAM [facility] Stop: 01/02/25 15:59 Last Admin: 12/05/24 07:32 Dose: 1 patch Documented By: Admin: 12/04/24 08:33 Dose: 1 patch Documented By: Admin: 12/03/24 16:48 Dose: 1 patch Documented By: SANJIV Miscellaneous (Remove Lidoderm Patch) 1 each N/A DAILY@2100 [facility] Stop: 01/02/25 20:59 Last Admin: 12/04/24 21:07 Dose: 1 each Documented By: Admin: 12/03/24 20:46 Dose: 1 each Documented By: BULMARO Oxycodone HCl (Oxycodone Hcl Ir 5 Mg Tab (Immediate Release)) 5 mg PO Q4 PRN PRN Reason: Pain Stop: 12/18/24 11:47 Last Admin: 12/05/24 04:23 Dose: 5 mg Documented By: Admin: 12/04/24 12:33 Dose: 5 mg Documented By: SANJIV Polyethylene Glycol (Polyethylene (Miralax) 17 Gm Pack) 17 gm PO DAILY [facility] Stop: 01/03/25 15:14 Last Admin: 12/05/24 07:42 Dose: 17 gm Documented By: Admin: 12/04/24 15:35 Dose: 17 gm Documented By: SANJIV Rosuvastatin Calcium (Rosuvastatin Calcium 5 Mg Tab) 5 mg PO MoWeFr@1600 [facility] Stop: 01/02/25 15:59 Last Admin: 12/03/24 16:50 Dose: 5 mg Documented By: SANJIV Sodium Chloride (Sodium Chloride 1 Gm Tablet) 1 gm PO DAILY [facility] Stop: 01/03/25 08:59 Last Admin: 12/05/24 07:31 Dose: 1 gm Documented By: Admin: 12/04/24 08:33 Dose: 1 gm Documented By: SANJIV Travoprost (Travoprost Z 0.004% Oph Soln 2.5 Ml Btl) 1 drops OPB HS [facility] Stop: 01/02/25 20:59 Last Admin: 12/04/24 21:06 Dose: 1 drops Documented By: Admin: 12/03/24 20:45 Dose: 1 drops Documented By: BULMARO Vitamin D (Cholecalciferol 25 Mcg (1000 Units) Tab) 50 mcg PO QAM [facility] Stop: 01/03/25 08:59 Last Admin: 12/05/24 07:30 Dose: 50 mcg Documented By: Admin: 12/04/24 08:32 Dose: 50 mcg Documented By: SANJIV (1) Fall Encounter type: initial encounter Qualified Code(s): W19.XXXA - Unspecified fall, initial encounter
[2024-12-05] MEDS: LACTATED RINGER'S 1,000 ML IV SCH (13:07)
[2024-12-05] MEDS: FOLIC ACID 1 MG TAB PO SCH (13:57)
[2024-12-05] MEDS: VITAMIN B COMPLEX TAB PO SCH (13:57)
[2024-12-06] MEDS ORDERED: LEVOTHYROXINE SODIUM 25 MCG TABLET PO SCH (06:30)
[2024-12-06] MEDS: LEVOTHYROXINE SODIUM 50 MCG TABLET PO SCH (08:23)
[2024-12-06 08:24] LABS: Albumin Globulin Ratio 1.4 (0.9-2); Albumin Level 3.6 gm/dl (3.4-5.0); BUN Creatinine Ratio 16.7 (10-20); Bilirubin,Total 0.5 mg/dl (0.2-1.0); Calcium 8.7 mg/dl (8.6-10.3); Creatinine Clr Calc Pharmacy 42.3 ml/min; Globulin 2.5 gm/dl (2.5-4.0); Potassium 4.5 mmol/L (3.5-5.1); Total Protein 6.1 gm/dl (6.0-8.3)
--- NOTE | 2024-12-06 15:37 | Communication Note ---
Patient evaluated at bedside. Patient is oriented only to self, and thinks she was transferred to another hospital. Very aggressive and being rude to staff. Trying to get out of bed, kicking people as well. Large fall risk. Patient is currently threat to herself and others without capacity, will trial zyprexa 2.5mg. Date of Service: December 06, 2024
[2024-12-06] MEDS: OLANZapine 10 MG/2.1 ML SDV IM ONE (15:45)
[2024-12-06] MEDS: OLANZapine 10 MG/2.1 ML SDV IM STA (15:46)
--- NOTE | 2024-12-06 16:35 | Hospitalist Progress Note ---
Date of Service December 06, 2024 Assessment & Plan (1) Fall: (2) Rib fracture: Plan: Recurrent falls Acute displaced left sixth and seventh rib fractures Ambulatory dysfunction Subacute Age-related osteoporosis with current pathologic fracture, L1 vertebra --Chest CT:Acute minimally displaced fractures of the anterior left sixth and seventh ribs. No pneumothorax. Healing subacute nondisplaced fracture of the lateral left seventh rib with chronic bilateral rib fractures.Partially imaged subacute appearing L1 compression deformity with retropulsion redemonstrated. Plan: -continue PO oxycodone 5mg for severe pain, dilaudid 0.5 mg for breakthrough -continue voltaren cream -PT/OT ordered -Fall precautions -Incentive spirometry Acute Metabolic Encephalopathy Dementia -worse today, patient dissoriented -delirium precautions -avoid anticholinergics -zyprexa 2.5 mg x1 ordered due to concern for patient safety Leukocytosis -Likely reactive -No obvious source of infection -Monitor Chronic hyponatremia/SIADH -Sodium 133, improved -Continue home salt tablets -start multivitamin, folic acid, thiamine DM Type II -Last HbA1c 8 point -ISS, basal Insulin, Accu checks, Diabetic diet Hypothyroidism -Continue levothyroxine Discussed with nurse at [facility]. Patient has had declining mobility for past month, and has been confused more and more often. They do not feel that they can take her back safely to that level of care at this time. Nurse will call son of Ms. Kong to discuss this and case management as well. Feeding/fluids: vegetarian, regular Analgesia: tylenol, oxy, IV dilaudid breakthrough Sedation: na Thromboprophylaxis: heparin Head up position: na Ulcer prophylaxis: na Glycemic control: insulin protocol Spontaneous breathing trial: na Bowel care: miralax scheduled daily and prn (given opioid use) Indwelling catheter removal: na Deescalation of antibiotics: na I spent a total of 50 minutes in direct patient care, including [id number] time with the patient and/or family, reviewing medical records, ordering and reviewing diagnostic tests, and coordinating care with other healthcare providers. This time includes: history taking, physical examination, medical decision making, counseling, ECG interpretation, imaging interpretation, lab interpretation, orders, and education, excluding time spent in the performance of separately billed services. Admission and Anticipated Discharge Date Admission Date: December 03, 2024 Subjective Patient seen and examined at bedside. Ms. Kong is not orriented today, she is kicking out and being rude to staff verbally. She thinks she was sent to another hospital other than [facility] and does not remember where she is or that she has been having falls. See prior note in chart, patient required 1 dose of zyprexa due to concern she was going to fall and hurt herself or lash out at staff physically. Review of Systems Review of Systems: -unable to answer due to mental status Physical Exam Physical Exam: Gen: A&O 1 NAD HEENT: NCAT, EOMI, not icteric. External ears normal. No rhinorrhea. Moist mucous membranes. Neck: Supple, full range of motion, no observable masses, No meningeal sign. Lungs: No Respiratory distress. CV: RRR, no edema. Abdomen: Soft, nondistended, No rebound tenderness. MSK: tenderness on left rib cage, improved from prior Skin: No rashes, petechiae, lesions. Normal color per patient. Neuro: Normal Gait, Grossly intact. Results & Data Results & Data Vital Signs (Past 12 Hours) Vital Signs Temp Pulse Resp BP Pulse Ox O2 Del Method 12/06/24 15:30 36.6 C 90 20 133/79 92 Room Air 12/06/24 07:51 36.6 C 87 16 147/82 H 94 Room Air Laboratory Results -personally reviewed, Na of 133 much improved from prior Medications Administered Acetaminophen (Acetaminophen 500 Mg Tab) 1,000 mg PO Q8H [facility] Stop: 01/03/25 14:59 Last Admin: 12/06/24 14:53 Dose: 1,000 mg Documented By: Admin: 12/06/24 08:23 Dose: 1,000 mg Documented By: Admin: 12/05/24 21:27 Dose: 1,000 mg Documented By: Admin: 12/05/24 14:47 Dose: 1,000 mg Documented By: Admin: 12/05/24 06:09 Dose: 1,000 mg Documented By: Admin: 12/04/24 22:03 Dose: 1,000 mg Documented By: Admin: 12/04/24 15:35 Dose: 1,000 mg Documented By: SANJIV Amlodipine Besylate (Amlodipine Besylate 5 Mg Tab) 10 mg PO QAM [facility] Stop: 01/03/25 16:44 Last Admin: 12/06/24 08:26 Dose: 10 mg Documented By: Admin: 12/05/24 07:33 Dose: 10 mg Documented By: Admin: 12/04/24 17:17 Dose: 10 mg Documented By: SANJIV Calcium/Vitamin D (Calcium 600mg + Vit D 400 Iu Tab) 1 tab PO DAILY [facility] Stop: 01/03/25 08:59 Last Admin: 12/06/24 08:26 Dose: 1 tab Documented By: Admin: 12/05/24 07:30 Dose: 1 tab Documented By: Admin: 12/04/24 08:32 Dose: 1 tab Documented By: SANJIV Cyanocobalamin (Cyanocobalamin (B-12) 100 Mcg Tablet) 100 mcg PO DAILY [facility] Stop: 01/03/25 08:59 Last Admin: 12/06/24 08:24 Dose: 100 mcg Documented By: Admin: 12/05/24 07:30 Dose: 100 mcg Documented By: Admin: 12/04/24 08:32 Dose: 100 mcg Documented By: SANJIV Diclofenac Sodium (Diclofenac Sod 1% Gel 100 Gm Tube) 4 gm EXT BID [facility]; Protocol Stop: 01/03/25 20:59 Last Admin: 12/06/24 08:25 Dose: 4 gm Documented By: Admin: 12/05/24 21:27 Dose: 4 gm Documented By: Admin: 12/05/24 07:31 Dose: 4 gm Documented By: Admin: 12/04/24 21:05 Dose: 4 gm Documented By: BULMARO Duloxetine HCl (Duloxetine Hcl 60 Mg Cap) 60 mg PO DAILY [facility] Stop: 01/03/25 08:59 Last Admin: 12/06/24 08:25 Dose: 60 mg Documented By: Admin: 12/05/24 07:30 Dose: 60 mg Documented By: Admin: 12/04/24 08:32 Dose: 60 mg Documented By: SANJIV Duloxetine HCl (Duloxetine Hcl 30 Mg Cap) 30 mg PO DAILY [facility] Stop: 01/03/25 08:59 Last Admin: 12/06/24 08:25 Dose: 30 mg Documented By: Admin: 12/05/24 07:31 Dose: 30 mg Documented By: Admin: 12/04/24 08:32 Dose: 30 mg Documented By: SANJIV Folic Acid (Folic Acid 1 Mg Tab) 1 mg PO QAM [facility] Stop: 01/04/25 12:59 Last Admin: 12/06/24 08:24 Dose: 1 mg Documented By: Admin: 12/05/24 13:57 Dose: 1 mg Documented By: SANJIV Heparin Sodium (Porcine) (Heparin Sod 5,000 Unit/0.5 Ml Vial) 5,000 units SQ Q12 [facility] Stop: 01/02/25 20:59 Last Admin: 12/06/24 08:39 Dose: 5,000 units Documented By: Admin: 12/05/24 21:26 Dose: 5,000 units Documented By: Admin: 12/05/24 07:42 Dose: 5,000 units Documented By: Admin: 12/04/24 21:05 Dose: 5,000 units Documented By: Admin: 12/04/24 08:57 Dose: 5,000 units Documented By: Admin: 12/03/24 20:45 Dose: 5,000 units Documented By: BULMARO Hydromorphone HCl (Hydromorphone Inj 0.5 Mg/0.5 Ml Syr) 0.5 mg IV Q4 PRN PRN Reason: Breakthrough Pain Stop: 12/18/24 11:47 Last Admin: 12/05/24 07:29 Dose: 0.5 mg Documented By: SANJIV Insulin Aspart (Insulin Aspart Per Unit Charge) 0 units SC ACHS [facility] Stop: 01/02/25 16:29 Last Admin: 12/06/24 13:05 Dose: 3 units Documented By: DEBRA Co-signed By: KATHLEEN Admin: 12/06/24 08:38 Dose: 2 units Documented By: DEBRA Co-signed By: KATHLEEN Admin: 12/05/24 21:29 Dose: 2 units Documented By: BULMARO Co-signed By: [id number] Admin: 12/05/24 16:58 Dose: 2 units Documented By: SANJIV Co-signed By: GABE Admin: 12/05/24 12:03 Dose: 2 units Documented By: SANJIV Co-signed By: CHIP Admin: 12/05/24 09:25 Dose: 2 units Documented By: SANJIV Co-signed By: SHERRY Admin: 12/04/24 21:04 Dose: 1 units Documented By: BULMARO Co-signed By: GLORIA Admin: 12/04/24 17:17 Dose: 3 units Documented By: SANJIV Co-signed By: SCOOTER Admin: 12/04/24 12:54 Dose: Not Given Documented By: Admin: 12/04/24 08:57 Dose: 3 units Documented By: SANJIV Co-signed By: SCOOTER Admin: 12/03/24 20:45 Dose: 2 units Documented By: BULMARO Co-signed By: ADRIENNE Admin: 12/03/24 17:17 Dose: 2 units Documented By: SANJIV Co-signed By: DOLORES Insulin Glargine (Lantus Per Unit Charge) 5 units SQ BID [facility] Stop: 01/02/25 20:59 Last Admin: 12/06/24 08:39 Dose: 5 units Documented By: DEBRA Co-signed By: KATHLEEN Admin: 12/05/24 21:26 Dose: 5 units Documented By: BULMARO Co-signed By: [id number] Admin: 12/05/24 09:25 Dose: 5 units Documented By: SANJIV Co-signed By: [facility] Admin: 12/04/24 21:03 Dose: 5 units Documented By: BULMARO Co-signed By: GLORIA Admin: 12/04/24 08:59 Dose: 5 units Documented By: SANJIV Co-signed By: [facility] Admin: 12/03/24 20:45 Dose: 5 units Documented By: BULMARO Co-signed By: ADRIENNE Levothyroxine Sodium (Levothyroxine Sodium 50 Mcg Tablet) 50 mcg PO MoTuWeTh@0630 [facility] Stop: 01/05/25 06:29 Last Admin: 12/06/24 08:23 Dose: 50 mcg Documented By: DEBRA Levothyroxine Sodium (Levothyroxine Sodium 25 Mcg Tablet) 25 mcg PO SuFrSa@0630 [facility] Stop: 01/03/25 06:29 Last Admin: 12/05/24 06:09 Dose: 25 mcg Documented By: Admin: 12/04/24 06:06 Dose: 25 mcg Documented By: BULMARO Lidocaine (Lidocaine 5% 1 Patch) 1 patch TD QAM [facility] Stop: 01/02/25 15:59 Last Admin: 12/06/24 08:25 Dose: 1 patch Documented By: Admin: 12/05/24 07:32 Dose: 1 patch Documented By: Admin: 12/04/24 08:33 Dose: 1 patch Documented By: Admin: 12/03/24 16:48 Dose: 1 patch Documented By: SANJIV Miscellaneous (Remove Lidoderm Patch) 1 each N/A DAILY@2100 [facility] Stop: 01/02/25 20:59 Last Admin: 12/05/24 21:27 Dose: 1 each Documented By: Admin: 12/04/24 21:07 Dose: 1 each Documented By: Admin: 12/03/24 20:46 Dose: 1 each Documented By: BULMARO Oxycodone HCl (Oxycodone Hcl Ir 5 Mg Tab (Immediate Release)) 5 mg PO Q4 PRN PRN Reason: Pain Stop: 12/18/24 11:47 Last Admin: 12/05/24 13:34 Dose: 5 mg Documented By: Admin: 12/05/24 04:23 Dose: 5 mg Documented By: Admin: 12/04/24 12:33 Dose: 5 mg Documented By: SANJIV Polyethylene Glycol (Polyethylene (Miralax) 17 Gm Pack) 17 gm PO DAILY [facility] Stop: 01/03/25 15:14 Last Admin: 12/06/24 08:39 Dose: 17 gm Documented By: Admin: 12/05/24 07:42 Dose: 17 gm Documented By: Admin: 12/04/24 15:35 Dose: 17 gm Documented By: SANJIV Rosuvastatin Calcium (Rosuvastatin Calcium 5 Mg Tab) 5 mg PO MoWeFr@1600 [facility] Stop: 01/02/25 15:59 Last Admin: 12/06/24 14:53 Dose: 5 mg Documented By: Admin: 12/03/24 16:50 Dose: 5 mg Documented By: SANJIV Sodium Chloride (Sodium Chloride 1 Gm Tablet) 1 gm PO DAILY [facility] Stop: 01/03/25 08:59 Last Admin: 12/06/24 08:26 Dose: 1 gm Documented By: Admin: 12/05/24 07:31 Dose: 1 gm Documented By: Admin: 12/04/24 08:33 Dose: 1 gm Documented By: SANJIV Travoprost (Travoprost Z 0.004% Oph Soln 2.5 Ml Btl) 1 drops OPB HS [facility] Stop: 01/02/25 20:59 Last Admin: 12/05/24 21:27 Dose: 1 drops Documented By: Admin: 12/04/24 21:06 Dose: 1 drops Documented By: Admin: 12/03/24 20:45 Dose: 1 drops Documented By: BULMARO Vitamin B Complex (Vitamin B Complex Tab) [facility] Stop: 01/04/25 12:59 Last Admin: 12/06/24 08:24 Dose: 1 tab Documented By: Admin: 12/05/24 13:57 Dose: 1 tab Documented By: SANJIV Vitamin D (Cholecalciferol 25 Mcg (1000 Units) Tab) 50 [facility]cg [facility] [place] Stop: 01/03/25 08:59 Last Admin: 12/06/24 08:25 Dose: 50 mcg Documented By: Admin: 12/05/24 07:30 Dose: 50 mcg Documented By: Admin: 12/04/24 08:32 Dose: 50 mcg Documented By: SANJIV (1) Fall Encounter type: initial encounter Qualified Code(s): W19.XXXA - Unspecified fall, initial encounter
[2024-12-06 23:40] VITALS: RESP 16
[2024-12-07 08:19] LABS: Albumin Globulin Ratio 1.4 (0.9-2); Albumin Level 4.2 gm/dl (3.4-5.0); BUN Creatinine Ratio 11.8 (10-20); Bilirubin,Total 0.5 mg/dl (0.2-1.0); Calcium 9.5 mg/dl (8.6-10.3); Creatinine Clr Calc Pharmacy 33.4 ml/min; Globulin 2.9 gm/dl (2.5-4.0); Potassium 4.6 mmol/L (3.5-5.1); Total Protein 7.1 gm/dl (6.0-8.3)
[2024-12-07] MEDS: LANTUS PER UNIT CHARGE SQ SCH ×2 (10:13→21:05)
--- NOTE | 2024-12-07 15:47 | Hospitalist Progress Note ---
Date of Service December 07, 2024 Assessment & Plan (1) Fall: (2) Rib fracture: Plan: Recurrent falls Acute displaced left sixth and seventh rib fractures Ambulatory dysfunction Subacute Age-related osteoporosis with current pathologic fracture, L1 vertebra --Chest CT:Acute minimally displaced fractures of the anterior left sixth and seventh ribs. No pneumothorax. Healing subacute nondisplaced fracture of the lateral left seventh rib with chronic bilateral rib fractures.Partially imaged subacute appearing L1 compression deformity with retropulsion redemonstrated. Plan: -stop oxycodone, start tylenol prn -decrease duloxetine by 30 mg given fall risk, back to therapeutic 60 mg dose -continue voltaren cream -PT/OT ordered -Fall precautions -Incentive spirometry Acute Metabolic Encephalopathy Dementia -worse today, patient dissoriented -delirium precautions -avoid anticholinergics, avoid zyprexa if possible Leukocytosis -Likely reactive -No obvious source of infection -Monitor Chronic hyponatremia/SIADH -Sodium 133, improved -Continue home salt tablets -start multivitamin, folic acid, thiamine DM Type II -Last HbA1c 8 point -ISS, basal Insulin, Accu checks, Diabetic diet Hypothyroidism -Continue levothyroxine Feeding/fluids: vegetarian, regular Analgesia: tylenol, oxy, IV dilaudid breakthrough Sedation: na Thromboprophylaxis: heparin Head up position: na Ulcer prophylaxis: na Glycemic control: insulin protocol Spontaneous breathing trial: na Bowel care: miralax scheduled daily and prn (given opioid use) Indwelling catheter removal: na Deescalation of antibiotics: na I spent a total of 50 minutes in direct patient care, including [id number] time with the patient and/or family, reviewing medical records, ordering and reviewing diagnostic tests, and coordinating care with other healthcare providers. This time includes: history taking, physical examination, medical decision making, counseling, ECG interpretation, imaging interpretation, lab interpretation, orders, and education, excluding time spent in the performance of separately billed services. Admission and Anticipated Discharge Date Admission Date: December 06, 2024 Subjective Patient seen and examined at bedside. Patient orriented only to self today. Not agitated. Review of Systems Review of Systems: -unable to answer due to mental status Physical Exam Physical Exam: Gen: A&O 1 NAD HEENT: NCAT, EOMI, not icteric. External ears normal. No rhinorrhea. Moist mucous membranes. Neck: Supple, full range of motion, no observable masses, No meningeal sign. Lungs: No Respiratory distress. CV: RRR, no edema. Abdomen: Soft, nondistended, No rebound tenderness. MSK: tenderness on left rib cage, improved from prior Skin: No rashes, petechiae, lesions. Normal color per patient. Neuro: Normal Gait, Grossly intact. Results & Data Results & Data Vital Signs (Past 12 Hours) Vital Signs Temp Pulse Resp BP Pulse Ox O2 Del Method 12/07/24 14:12 36.5 C 91 H 16 113/72 92 Room Air 12/07/24 07:54 36.6 C 78 16 118/74 96 Room Air Laboratory Results -personally reviewed, creatinine at baseline Medications Administered Acetaminophen (Acetaminophen 500 Mg Tab) 1,000 mg PO Q8H LOGAN Stop: 01/03/25 14:59 Last Admin: 12/07/24 14:46 Dose: 1,000 mg Documented By: Admin: 12/07/24 05:47 Dose: 1,000 mg Documented By: Admin: 12/06/24 23:54 Dose: Not Given Documented By: Admin: 12/06/24 14:53 Dose: 1,000 mg Documented By: Admin: 12/06/24 08:23 Dose: 1,000 mg Documented By: Admin: 12/05/24 21:27 Dose: 1,000 mg Documented By: Admin: 12/05/24 14:47 Dose: 1,000 mg Documented By: Admin: 12/05/24 06:09 Dose: 1,000 mg Documented By: Admin: 12/04/24 22:03 Dose: 1,000 mg Documented By: Admin: 12/04/24 15:35 Dose: 1,000 mg Documented By: SANJIV Amlodipine Besylate (Amlodipine Besylate 5 Mg Tab) 10 mg PO QAM LOGAN Stop: 01/03/25 16:44 Last Admin: 12/07/24 09:32 Dose: 10 mg Documented By: Admin: 12/06/24 08:26 Dose: 10 mg Documented By: Admin: 12/05/24 07:33 Dose: 10 mg Documented By: Admin: 12/04/24 17:17 Dose: 10 mg Documented By: SANJIV Calcium/Vitamin D (Calcium 600mg + Vit D 400 Iu Tab) 1 tab PO DAILY LOGAN Stop: 01/03/25 08:59 Last Admin: 12/07/24 09:32 Dose: 1 tab Documented By: Admin: 12/06/24 08:26 Dose: 1 tab Documented By: Admin: 12/05/24 07:30 Dose: 1 tab Documented By: Admin: 12/04/24 08:32 Dose: 1 tab Documented By: SANJIV Cyanocobalamin (Cyanocobalamin (B-12) 100 Mcg Tablet) 100 mcg PO DAILY LOGAN Stop: 01/03/25 08:59 Last Admin: 12/07/24 09:32 Dose: 100 mcg Documented By: Admin: 12/06/24 08:24 Dose: 100 mcg Documented By: Admin: 12/05/24 07:30 Dose: 100 mcg Documented By: Admin: 12/04/24 08:32 Dose: 100 mcg Documented By: SANJIV Diclofenac Sodium (Diclofenac Sod 1% Gel 100 Gm Tube) 4 gm EXT BID LOGAN; Protocol Stop: 01/03/25 20:59 Last Admin: 12/07/24 09:32 Dose: 4 gm Documented By: Admin: 12/06/24 20:11 Dose: 4 gm Documented By: Admin: 12/06/24 08:25 Dose: 4 gm Documented By: Admin: 12/05/24 21:27 Dose: 4 gm Documented By: Admin: 12/05/24 07:31 Dose: 4 gm Documented By: Admin: 12/04/24 21:05 Dose: 4 gm Documented By: BULMARO Duloxetine HCl (Duloxetine Hcl 60 Mg Cap) 60 mg PO DAILY LOGAN Stop: 01/03/25 08:59 Last Admin: 12/07/24 09:31 Dose: 60 mg Documented By: Admin: 12/06/24 08:25 Dose: 60 mg Documented By: Admin: 12/05/24 07:30 Dose: 60 mg Documented By: Admin: 12/04/24 08:32 Dose: 60 mg Documented By: SANJIV Duloxetine HCl (Duloxetine Hcl 30 Mg Cap) 30 mg PO DAILY LOGAN Stop: 01/03/25 08:59 Last Admin: 12/07/24 09:32 Dose: 30 mg Documented By: Admin: 12/06/24 08:25 Dose: 30 mg Documented By: Admin: 12/05/24 07:31 Dose: 30 mg Documented By: Admin: 12/04/24 08:32 Dose: 30 mg Documented By: SANJIV Folic Acid (Folic Acid 1 Mg Tab) 1 mg PO QAM [facility] Stop: 01/04/25 12:59 Last Admin: 12/07/24 09:32 Dose: 1 mg Documented By: Admin: 12/06/24 08:24 Dose: 1 mg Documented By: Admin: 12/05/24 13:57 Dose: 1 mg Documented By: SANJIV Heparin Sodium (Porcine) (Heparin Sod 5,000 Unit/0.5 Ml Vial) 5,000 units SQ Q12 LOGAN Stop: 01/02/25 20:59 Last Admin: 12/07/24 09:31 Dose: 5,000 units Documented By: Admin: 12/06/24 20:12 Dose: 5,000 units Documented By: Admin: 12/06/24 08:39 Dose: 5,000 units Documented By: Admin: 12/05/24 21:26 Dose: 5,000 units Documented By: Admin: 12/05/24 07:42 Dose: 5,000 units Documented By: Admin: 12/04/24 21:05 Dose: 5,000 units Documented By: Admin: 12/04/24 08:57 Dose: 5,000 units Documented By: Admin: 12/03/24 20:45 Dose: 5,000 units Documented By: BULMARO Insulin Aspart (Insulin Aspart Per Unit Charge) 0 units SC ACHS [facility] Stop: 01/02/25 16:29 Last Admin: 12/07/24 12:06 Dose: 1 units Documented By: NOEMI Co-signed By: OKSANA Admin: 12/07/24 09:40 Dose: 1 units Documented By: NOEMI Co-signed By: OKSANA Admin: 12/06/24 20:13 Dose: 9 units Documented By: DRAGAN Co-signed By: ROBERT Admin: 12/06/24 17:31 Dose: Not Given Documented By: Admin: 12/06/24 13:05 Dose: 3 units Documented By: DEBRA Co-signed By: KATHLEEN Admin: 12/06/24 08:38 Dose: 2 units Documented By: DEBRA Co-signed By: KATHLEEN Admin: 12/05/24 21:29 Dose: 2 units Documented By: BULMARO Co-signed By: [id number] Admin: 12/05/24 16:58 Dose: 2 units Documented By: SANJIV Co-signed By: ED Admin: 12/05/24 12:03 Dose: 2 units Documented By: SANJIV Co-signed By: MRE Admin: 12/05/24 09:25 Dose: 2 units Documented By: SANJIV Co-signed By: AA Admin: 12/04/24 21:04 Dose: 1 units Documented By: BULMARO Co-signed By: SCOOTERI Admin: 12/04/24 17:17 Dose: 3 units Documented By: SANJIV Co-signed By: AA Admin: 12/04/24 12:54 Dose: Not Given Documented By: Admin: 12/04/24 08:57 Dose: 3 units Documented By: SANJIV Co-signed By: AA Admin: 12/03/24 20:45 Dose: 2 units Documented By: BULMARO Co-signed By: ADRIENNE Admin: 12/03/24 17:17 Dose: 2 units Documented By: SANJIV Co-signed By: DOLORES Levothyroxine Sodium (Levothyroxine Sodium 50 Mcg Tablet) 50 mcg PO MoTuWeTh@0630 [facility] Stop: 01/05/25 06:29 Last Admin: 12/07/24 05:47 Dose: 50 mcg Documented By: Admin: 12/06/24 08:23 Dose: 50 mcg Documented By: DEBRA Levothyroxine Sodium (Levothyroxine Sodium 25 Mcg Tablet) 25 mcg PO SuFrSa@0630 [facility] Stop: 01/03/25 06:29 Last Admin: 12/05/24 06:09 Dose: 25 mcg Documented By: Admin: 12/04/24 06:06 Dose: 25 mcg Documented By: BULMARO Lidocaine (Lidocaine 5% 1 Patch) 1 patch TD QAM [facility] Stop: 01/02/25 15:59 Last Admin: 12/07/24 08:16 Dose: 1 patch Documented By: Admin: 12/06/24 08:25 Dose: 1 patch Documented By: Admin: 12/05/24 07:32 Dose: 1 patch Documented By: Admin: 12/04/24 08:33 Dose: 1 patch Documented By: Admin: 12/03/24 16:48 Dose: 1 patch Documented By: SANJIV Miscellaneous (Remove Lidoderm Patch) 1 each N/A DAILY@2100 [facility] Stop: 01/02/25 20:59 Last Admin: 12/06/24 20:14 Dose: 1 each Documented By: Admin: 12/05/24 21:27 Dose: 1 each Documented By: Admin: 12/04/24 21:07 Dose: 1 each Documented By: Admin: 12/03/24 20:46 Dose: 1 each Documented By: BULMARO Oxycodone HCl (Oxycodone Hcl Ir 5 Mg Tab (Immediate Release)) 5 mg PO Q4 PRN PRN Reason: Pain Stop: 12/18/24 11:47 Last Admin: 12/05/24 13:34 Dose: 5 mg Documented By: Admin: 12/05/24 04:23 Dose: 5 mg Documented By: Admin: 12/04/24 12:33 Dose: 5 mg Documented By: SANJIV Polyethylene Glycol (Polyethylene (Miralax) 17 Gm Pack) 17 gm PO DAILY LOGAN Stop: 01/03/25 15:14 Last Admin: 12/07/24 09:32 Dose: 17 gm Documented By: Admin: 12/06/24 08:39 Dose: 17 gm Documented By: Admin: 12/05/24 07:42 Dose: 17 gm Documented By: Admin: 12/04/24 15:35 Dose: 17 gm Documented By: SANJIV Rosuvastatin Calcium (Rosuvastatin Calcium 5 Mg Tab) 5 mg PO MoWeFr@1600 [facility] Stop: 01/02/25 15:59 Last Admin: 12/06/24 14:53 Dose: 5 mg Documented By: Admin: 12/03/24 16:50 Dose: 5 mg Documented By: SANJIV Sodium Chloride (Sodium Chloride 1 Gm Tablet) 1 gm PO DAILY LOGAN Stop: 01/03/25 08:59 Last Admin: 12/07/24 09:32 Dose: 1 gm Documented By: Admin: 12/06/24 08:26 Dose: 1 gm Documented By: Admin: 12/05/24 07:31 Dose: 1 gm Documented By: Admin: 12/04/24 08:33 Dose: 1 gm Documented By: SANJIV Travoprost (Travoprost Z 0.004% Oph Soln 2.5 Ml Btl) 1 drops OPB HS LOGAN Stop: 01/02/25 20:59 Last Admin: 12/06/24 20:12 Dose: 1 drops Documented By: Admin: 12/05/24 21:27 Dose: 1 drops Documented By: Admin: 12/04/24 21:06 Dose: 1 drops Documented By: Admin: 12/03/24 20:45 Dose: 1 drops Documented By: BULMARO Vitamin B Complex (Vitamin B Complex Tab) [facility] [place] Stop: 01/04/25 12:59 Last Admin: 12/07/24 09:31 Dose: 1 tab Documented By: Admin: 12/06/24 08:24 Dose: 1 tab Documented By: Admin: 12/05/24 13:57 Dose: 1 tab Documented By: SANJIV Vitamin D (Cholecalciferol 25 Mcg (1000 Units) Tab) 50 mcg PO QAM [facility] Stop: 01/03/25 08:59 Last Admin: 12/07/24 09:32 Dose: 50 mcg Documented By: Admin: 12/06/24 08:25 Dose: 50 mcg Documented By: Admin: 12/05/24 07:30 Dose: 50 mcg Documented By: Admin: 12/04/24 08:32 Dose: 50 mcg Documented By: SANJIV (1) Fall Encounter type: initial encounter Qualified Code(s): W19.XXXA - Unspecified fall, initial encounter
[2024-12-07] MEDS: MELATONIN 3 MG TAB PO SCH (21:05)
[2024-12-08 07:21] VITALS: TEMP 97.9; O2SAT 97
[2024-12-08 07:21] LABS: Hematocrit (blood only) 36.7 % (37.0-47.0); Mean Corpuscular Hgb Conc 32.7 g/dL (32.0-36.0); Mean Corpuscular Volume 85.7 fL (80.0-100.0); Mean Platelet Volume 10.4 fL (9.4-12.4); Platelet Count 293 K/uL (130-400); RDW Coefficient of Variation 13.2 % (11.5-14.5); Red Blood Count 4.28 M/uL (4.20-5.40); White Blood Count 9.78 K/ul (4.8-10.8)
[2024-12-08 07:47] LABS: BUN Creatinine Ratio 13.4 (10-20); Calcium 9.2 mg/dl (8.6-10.3); Creatinine Clr Calc Pharmacy 37.9 ml/min; Potassium 4.8 mmol/L (3.5-5.1)
[2024-12-08] MEDS: ACETAMINOPHEN 500 MG TAB PO PRN (08:42)
[2024-12-08 12:14] VITALS: BP 126/67; PULSE 86
[2024-12-08] MEDS: POLYETHYLENE (MIRALAX) 17 GM PACK PO PRN (13:14)
--- NOTE | 2024-12-08 14:08 | Discharge Summary ---
Discharge Summary Date of Service December 08, 2024 Principal Dx & Hospital Course #1 = Principal Diagnosis (1) Fall: (2) Rib fracture: Recurrent falls Acute displaced left sixth and seventh rib fractures Ambulatory dysfunction Subacute Age-related osteoporosis with current pathologic fracture, L1 vertebra --Chest CT:Acute minimally displaced fractures of the anterior left sixth and seventh ribs. No pneumothorax. Healing subacute nondisplaced fracture of the lateral left seventh rib with chronic bilateral rib fractures.Partially imaged subacute appearing L1 compression deformity with retropulsion redemonstrated. Plan: -tylenol prn -continue decreased duloxetine by 30 mg given fall risk, to therapeutic 60 mg dose -continue voltaren cream -PT/OT ordered -Fall precautions -Incentive spirometry -discussed placement at length with and family, family and patient insist on going back to [facility], will need memory care here soon, our team recommended SNF but patient and family preference is to return to [facility] correction Acute Metabolic Encephalopathy Dementia -worse today, patient dissoriented -delirium precautions -avoid anticholinergics, avoid zyprexa if possible Leukocytosis -Likely reactive -No obvious source of infection -Monitor Chronic hyponatremia/SIADH -Sodium 133, improved -Continue home salt tablets -continue multivitamin, folic acid, thiamine DM Type II -Last HbA1c 8 point -ISS, basal Insulin, Accu checks, Diabetic diet Hypothyroidism -Continue levothyroxine Notes For Next Care Provider Patient is a 84-year-old female with history of diabetes mellitus, hypothyroidism, cognitive impairment, chronic hyponatremia/SIADH, glaucoma, depression and other medical problems who was recently discharged from [facility] after being treated for L1 vertebral fracture, recurrent falls, ambulatory dysfunction presents with history of fall which she believes 2 days ago. On medicine, pain controlled, PT/OT recommended SNF. Discussions with personal [facility], patient and family insisting on going back to [facility], not going to SNF. Course in hospital complicated by hyperactive delirium. On 12/08/2024 patient and family wanted to go back to [facility], medically stable for discharge home. Of note, patient likely needs SNF, long-term care, or memory care level of care in near future. Medication Changes From Visit - Admission HPI Per Admitting Provider Patient is a 84-year-old female with history of diabetes mellitus, hypothyroidism, cognitive impairment, chronic hyponatremia/SIADH, glaucoma, depression and other medical problems who was recently discharged from [facility] after being treated for L1 vertebral fracture, recurrent falls, ambulatory dysfunction presents with history of fall which she believes 2 days ago. Patient is a poor historian. Patient states that she fell on her left side 2 days ago while using a walker but does not believe she hit her head or lost consciousness. She is unable to clearly remember the events during the fall. States having left-sided rib pain with movement, worsens with deep breathing. Also states having some dyspnea. Denies any history of chest pain, dizziness, pedal edema, cough, fever, chills, focal weakness, numbness, change in vision, nausea, vomiting, abdominal pain, diarrhea, dysuria, hematuria. Admission Exam Per Admitting Provider -folic acid, melatonin Discharge Exam Gen: A&O 2-3 NAD HEENT: NCAT, EOMI, not icteric. External ears normal. No rhinorrhea. Moist mucous membranes. Neck: Supple, full range of motion, no observable masses, No meningeal sign. Lungs: No Respiratory distress. CV: RRR, no edema. Abdomen: Soft, nondistended, No rebound tenderness. MSK: tenderness on left rib cage, improved from prior Skin: No rashes, petechiae, lesions. Normal color per patient. Neuro: Normal Gait, Grossly intact. Updated Medication List Medication Instructions Recorded Confirmed Type ascorbic acid (vitamin C) 500 mg 500 mg PO DAILY 06/23/19 12/03/24 History tablet cholecalciferol (vitamin D3) 50 2,000 units PO QAM 06/23/19 12/03/24 History mcg (2,000 unit) tablet travoprost 0.004 % eye drops 1 drops OPB HS #3 mL 06/23/19 12/03/24 History diclofenac sodium 1 % topical gel 4 g topical TID PRN Other 08/07/20 12/03/24 History sodium chloride 1 gram tablet 1 g PO DAILY 10/02/20 12/03/24 History coenzyme Q10 100 mg capsule 100 mg PO DAILY 03/21/21 12/03/24 History (CoQ-10) duloxetine 60 mg capsule,delayed 60 mg PO DAILY 03/21/21 12/03/24 History release metformin 500 mg tablet,extended 500 mg PO BID 03/21/21 12/03/24 History release 24 hr dulaglutide 0.75 mg/0.5 mL 0.75 mg subcut .ON HOLD 12/21/23 02/28/25 History subcutaneous pen injector (Trulicity) rosuvastatin 5 mg tablet 5 mg PO 3XWK 09/25/23 12/03/24 History Iron Glycinate Oral Capsule 28 mg PO 3XWK 11/16/24 12/03/24 History acetaminophen 325 mg tablet 650 mg PO Q4 PRN Pain 11/16/24 12/03/24 History calcium 500 mg (as 1 tab PO DAILY 11/16/24 12/03/24 History carbonate)-vitamin D3 5 mcg (200 unit) tablet cyanocobalamin (vitamin B-12) 100 100 mcg PO DAILY 11/16/24 12/03/24 History mcg tablet (Vitamin B-12) diclofenac sodium 1 % topical gel 2 g topical Q6 PRN Pain 11/16/24 12/03/24 History hydrocortisone 1 % topical cream 1 applic topical Q12 PRN BLE FOR 11/16/24 12/03/24 History ITCHING levothyroxine 25 mcg tablet 25 mcg PO 3XWK 11/16/24 12/03/24 History levothyroxine 50 mcg tablet 50 mcg PO 4XWK 11/16/24 12/03/24 History magnesium 250 mg tablet 250 mg PO 3XWK 11/16/24 12/03/24 History amlodipine 5 mg tablet (Norvasc) 10 mg (2 x 5 mg) PO QAM #60 tabs 12/08/24 Rx folic acid 1 mg tablet 1 mg PO QAM #30 tabs 12/08/24 Rx melatonin 3 mg tablet 3 mg PO HS #30 tabs 12/08/24 Rx polyethylene glycol 3350 17 gram 17 g PO DAILY PRN constipation #30 12/08/24 Rx oral powder packet (Miralax) ea Hospital Stay Data Consultations 12/03/24 12:06 ED Decision to Admit Stat Diagnostic Imagining Performed 12/03/24 09:46 CT cervical spine wo con Stat CT chest diagnostic w con Stat CT head/brain wo con Stat Pending Results Patient Have Any Pending Studies at Discharge: No Discharge Instructions Given to Patient (Per Discharging Provider) 1. Please focus on walking, utilizing assistance with all movements as much as possible. 2. Strongly recommend transiton to memory unit or higher level of care in near future. Total Time Total Time Spent Total Time Spent (In Minutes): I spent a total of 35 minutes in direct patient care, including [id number] time with the patient and/or family, reviewing medical records, ordering and reviewing diagnostic tests, and coordinating care with other healthcare providers. This time includes: history taking, physical examination, medical decision making, counseling, ECG interpretation, imaging interpretation, lab interpretation, orders, and education, excluding time spent in the performance of separately billed services.
== END 2024-12-08 13:26 | disposition home or self-care (01) | DRG 183 ==
LOC: ED 09:40 → 3W 09:40 → SUATTDRO 12:32 → 3W 15:37